=== PATIENT | female | born 1940 | race Caucasian/White ===

== ENCOUNTER → 2022-07-05 | Outpatient (REF) | payer OTHER, SELFPAY ==
[2022-07-05 08:34] LABS: Hematocrit 41.9 % (37-47); Hemoglobin 13.4 g/dL (12.0-15.0); Mean Corpuscular Hgb 31.3 pg (27.0-32.0); Mean Corpuscular Volume 97.9 fL (81-99); Platelet Count 191 K/mm3 (150-450); RBC Distribution Width CV 12.6 % (11.6-14.6); RBC Distribution Width SD 45.4 fl (35.1-43.9); Red Blood Count 4.28 M/mm3 (4.2-5.4); White Blood Count 29.4 K/mm3 (4.4-11.0)
[2022-07-05 09:23] LABS: AST(SGOT) 17 U/L (15-37); Alanine Aminotransfer ALT/SGPT 23 U/L (13-56); Albumin, Serum 3.5 g/dL (3.2-5.0); Alkaline Phosphatase 76 U/L (45-117); Anion Gap 7 (5-15); BUN 26 mg/dL (7-18); BUN/Creat Ratio 24.5 RATIO (10-20); Calcium,Total 8.9 mg/dL (8.5-10.1); Chloride 106 mmol/L (98-107); Creatinine, Serum 1.06 mg/dL (0.55-1.02); EST Glomerular Filtration Rate 53 mL/min (>60); Est Glom Filt Rate - Afr Amer 64 mL/min (>60); Globulin 3.4 g/dL (2.2-4.2); Glucose 110 mg/dL (74-106); Potassium 3.6 mmol/L (3.5-5.1); Protein, Total 6.9 g/dL (6.4-8.2); Sodium Level 141 mmol/L (136-145)
== END ==
LOC: OLS.BROOKB 05:00
PROVIDERS: Visit Provider Family Medicine
DX: I10 Essential (primary) hypertension (principal); L03.115 Cellulitis of right lower limb; C91.10 Chronic lymphocytic leukemia of B-cell type not having achieved remission; F02.80 Dementia in other diseases classified elsewhere, unspecified severity, without behavioral disturbance, psychotic disturbance, mood disturbance, and anxiety; Z99.2 Dependence on renal dialysis
CPT/HCPCS: 36415; 80053; 85027

== ENCOUNTER → 2022-09-06 | Outpatient (REF) | payer OTHER, SELFPAY ==
[2022-09-06 07:56] LABS: ALB/GLOB Ratio 0.9 RATIO (0.9-2.4); AST(SGOT) 19 U/L (15-37); Alanine Aminotransfer ALT/SGPT 20 U/L (13-56); Albumin, Serum 3.5 g/dL (3.2-5.0); Alkaline Phosphatase 75 U/L (45-117); Anion Gap 4 (5-15); BUN 26 mg/dL (7-18); BUN/Creat Ratio 31.8 RATIO (10-20); Calcium,Total 9.2 mg/dL (8.5-10.1); Chloride 104 mmol/L (98-107); Creatinine, Serum 0.82 mg/dL (0.55-1.02); EST Glomerular Filtration Rate 72 mL/min (>60); Est Glom Filt Rate - Afr Amer 87 mL/min (>60); Globulin 3.8 g/dL (2.2-4.2); Glucose 135 mg/dL (74-106); Potassium 4.1 mmol/L (3.5-5.1); Protein, Total 7.3 g/dL (6.4-8.2); Sodium Level 137 mmol/L (136-145)
== END ==
LOC: OLS.BROOKB 05:00
PROVIDERS: Visit Provider Family Medicine
DX: L03.115 Cellulitis of right lower limb (principal); R60.9 Edema, unspecified
CPT/HCPCS: 36415; 80053

== ENCOUNTER 2022-09-15 09:52 | Outpatient (RCR) | payer MEDICARE, SELFPAY ==
[2022-09-15 10:13] VITALS: BP 158/75; PULSE 75; RESP 16; TEMP 35.7; BMI 38.2
--- NOTE | 2022-09-15 14:53 | PCM.WC.HP ---
History of Present Illness Date of Service: 09/15/22 Chief Complaint: BLE wounds History of Wound: Patient is an 81-year-old female who resides at [facility]. She is referred by facility for evaluation and management of bilateral lower extremity wounds which have been ongoing for several weeks. Patient is unaccompanied to her appointment today. She does appear to have some level of dementia and is somewhat confused at times so is a rather poor historian. Referral paperwork indicates that patient had lower extremity cellulitis about a month ago which was treated with p.o. antibiotics. Current wound treatment consists of cleansing with wound cleanser covering with Telfa and wrapping with Kerlix daily. She reports a lot of pain associated with the wounds, but denies this pain being present prior to the wounds appearing. Patient states she is not diabetic and by review of her medication list this appears to be accurate. She states she does not smoke. She reports that she has never had wounds like this in the past. She is ambulatory and denies claudication type symptoms. She does have bilateral lower extremity edema with some fluid-filled blisters and serous fluid draining from wounds. She tells me that she does not wear compression. She typically sleeps in a chair. [facility] Home Medications acetaminophen 325 mg tablet 650 mg PO Q6H PRN Pain 09/15/22 [History Last Taken Unknown] bisacodyl 10 mg rectal suppository 10 mg OR DAILY PRN Constipation 09/15/22 [History Last Taken Unknown] furosemide 20 mg tablet 20 mg PO DAILY 09/15/22 [History Last Taken Unknown] hydroxyzine HCl 25 mg tablet 25 mg PO TID PRN ITCHING/ANXIETY 09/15/22 [History Last Taken Unknown] indapamide 2.5 mg tablet 2.5 mg PO DAILY 09/15/22 [History Last Taken Unknown] latanoprost 0.005 % eye drops 1 drp EACH EYE DAILY 09/15/22 [History Last Taken Unknown] nystatin 100,000 unit/gram topical powder 1 applic topical BID PRN Rash 09/15/22 [History Last Taken Unknown] ondansetron 4 mg disintegrating tablet 4 mg PO Q6H PRN Nausea 09/15/22 [History Last Taken Unknown] potassium chloride 20 mEq tablet,extended release 20 meq PO DAILY 09/15/22 [History Last Taken Unknown] sodium phosphates 19 gram-7 gram/118 mL enema (Fleet Enema) 118 ml OR DAILY PRN Constipation 09/15/22 [History Last Taken Unknown] venlafaxine 37.5 mg tablet 37.5 mg PO DAILY 09/15/22 [History Last Taken Unknown] Allergy/AdvReac Type Severity Reaction Status Date / Time timolol Allergy Other Verified 09/15/22 10:57 Social History Smoking Status: Never smoker ROS Constitutional Constitutional: Denies change in weight, chills, difficulty sleeping, fatigue, fever(s), frequent falls, lethargy, night sweats or weakness Eyes Eyes: Denies blindness, blurry vision, change in vision, eye pain or ptosis ENT HEENT: Denies abnormal hearing, change in voice, hearing loss, loss taste/smell or vertigo Cardiovascular Cardiovascular: Denies abdominal pain, chest pain, claudication, cold extremities, cyanosis, diaphoresis, dyspnea, dyspnea on exertion, fatigue, hypertension, irregular heart rhythm, orthopnea, palpitations, radiating jaw, neck or arm pain or syncope Respiratory/Chest Respiratory/Chest: Denies cough, dyspnea, hemoptysis, nail bed cyanosis, maryann-oral cyanosis, portable oxygen @ home, productive cough or wheezing Gastrointestinal Gastrointestinal: Denies abdominal pain, change in bowel habits, change in stool character, coffee ground emesis, melena, rectal bleeding or weight changes Genitourinary Genitourinary: Denies abdominal discomfort, burning urination, difficulty urinating or flank pain Musculoskeletal Musculoskeletal: Denies abnormal gait, difficulty walking, joint swelling, muscle cramps, muscle weakness or numbness Integumentary Integumentary: Reports wounds; Denies change in pigmentation, changing lesions, erythema, lesions, rash or unusual bruising Neurologic Neurologic: Denies abnormal gait, abnormal movements, abnormal speech, behavior changes, frequent falls, syncope, tingling or weakness Psychiatric Psychiatric: Denies behavioral changes, cognitive impairment or depression Endocrine Endocrinology: Denies change in body appearance, cold intolerance, excessive sweating, flushing, heat intolerance, palpitations, polydipsia, polyphagia or polyuria Hematologic/Lymphatic Hematologic/Lymphatic: Denies anemia, easy bleeding, easy bruising or lymphadenopathy Allergic/Immunologic Allergic/Immunologic: Denies seasonal rhinorrhea, throat swelling, tongue swelling, hives or asthma Vital Signs Vital Signs Vital Signs: 09/15/22 10:13 Temperature 96.2 F L Temperature Source Temporal Pulse Rate 75 Respiratory Rate 16 Blood Pressure 158/75 H Blood Pressure Mean 102 Blood Pressure Source Monitor Blood Pressure Position Sitting Blood Pressure Location Right Arm Oxygen Delivery Method Room Air Weight Weight: 196 lb Body Mass Index (BMI) 38.2 Physical Exam Const alert, oriented x3 and no apparent distress Orientation / Consciousness: confused HEENT normocephalic, head/scalp atraumatic, hearing grossly normal bilaterally, external ears normal and external nose normal Eyes EOMs intact bilaterally General Eye: normal appearance of both eyes Neck General: normal visual inspection and trachea midline Resp normal respiratory effort, normal air movement, no retractions and no use of accessory muscles Effort and Inspection: able to speak in complete sentences; Negative for stridor or audible wheezes Cardio Rate: regular rate Rhythm: regular rhythm Extremity Extremity Narrative: Bilateral lower extremity edema with some associated fluid-filled blisters. No particularly prominent varicose veins. Pulses diminished to palpation with monophasic signals. Appropriate color and normal capillary refill. Skin Wounds: wounds noted Wound Narrative: Wound noted to right anterior lundy which is quite superficial with pink granulation tissue at the wound bed. Right posterior calf cluster of superficial wounds with pink granulation tissue and minimal slough. Right posteromedial calf wound with significant adherent slough but areas of pink granulation tissue noted, no necrotic tissue or eschar. Left anterior lundy wound cluster very superficial. Left posterior calf wound, superficial with pink granulation tissue. No significant erythema, warmth. Serous drainage noted from wounds. Neuro oriented x3, CN's II-XII intact bilaterally, moves all extremities and no focal motor deficits Psych Appearance: grossly normal Attitude: calm Debridement Note Debridement Note Wound debrided: Left posterolateral lower leg Laterality: Left Type of Debridement: Excisional debridement Anesthesia Used: 5% Lidocaine Gel Depth: Down to and including healthy tissue Percentage of wound debrided: 100 Instrument Used: 5mm curette Tissue Removed: Devitalized tissue, slough Severity: Limited To Skin Breakdown Amount of bleeding with debridement: Mild Bleeding Controlled with: Pressure Patient tolerated procedure: Patient tolerated procedure well Post-Debridement Measurements and Additional Note: Post-Debridement Measurements/Treatment NIRU - Nurse 1 - General Ulcer Assessment Start: 09/15/22 10:12 Freq: Status: Active Protocol: STACIA Activity Type Activity Date Activity User E-sign Co-sign Detail Recorded Client Recorded Date Recorded By Document 09/15/22 10:13 [facility] [id number] 09/15/22 10:39 [facility] 09/15/22 10:13 WC - Today's Visit Information Type of service Initial Visit Arrival Mode Ambulatory, Walker Transfer Assistance None Patient Identification Verified (Name & Yes ) Patient Requires Transmission-Based No Precautions Height and Weight Height 5 ft Weight 196 lb Weight in Pounds 196.0 lbs Weight Measurement Method Estimated by Patient Body Mass Index (BMI) 38.2 BMI Classification Obese BSA - [place] 1.85 Vital Signs Temperature (97.8 F-99.1 F) 96.2 F L Temperature Source Temporal Pulse Rate (60-100) 75 Pulse Location Monitor Respiratory Rate (12-18) 16 Respiratory rate source Observation Oxygen Delivery Method Room Air Blood Pressure (90/60-120/80) 158/75 H Blood Pressure Mean 102 Source Monitor Position Sitting Blood Pressure Location Right Arm History Since Last Visit- (Skip if this is Patient's initial visit) Left Footwear Diabetic Shoe Right Footwear Diabetic Shoe Pain Scale: 0-10 Numeric Is Patient Pain Free? Yes Lower Extremity Assessment/ Foot Assessment/ Toe Nail Assessment Right -Posterior Tibial Palpable No -Posterior Tibial Doppler Monophasic -Dorsalis Pedis Palpable Yes -Dorsalis Pedis Doppler Monophasic -Extremity Color Pale, Hyperpigmented -Hair Growth on Legs No -Hair Growth on Toes No -Temperature of Extremity Cool -Capillary Refill Less than 3 Seconds -Other Deformity No -Prior Foot Ulcer No -Charcot Joint No -Prior Amputation No -Thick Yes -Discolored Yes -Deformed Yes -Improper Length & Hygeine Yes Left -Posterior Tibial Palpable No -Posterior Tibial Doppler Monophasic -Dorsalis Pedis Palpable Yes -Dorsalis Pedis Doppler Monophasic -Extremity Color Pale, Hyperpigmented -Hair Growth on Legs No -Hair Growth on Toes No -Temperature of Extremity Cool -Capillary Refill Less than 3 Seconds -Other Deformity No -Prior Foot Ulcer No -Charcot Joint No -Prior Amputation No -Thick Yes -Discolored Yes -Deformed No -Improper Length & Hygeine Yes Neuropathy Assessment Feet - Top Side and Bottom <Entered> (a) Communication Assessment Preferred language [place] Name/Type of Electronic Gaming Device Supervisor Electronic Gaming Device Supervisor Phone Able to Read Yes Able to Write Yes Communication Tools None Right Hearing Abillity Normal Left Hearing Abillity Normal Visual Assistive Devices Glasses Teaching Assessment Preferences Verbal,Written, Audio/Visual, Demonstration Barriers to Learning None Readiness To Learn Excellent Willingness to Engage in Self Management High Activies Readiness to Engage in Self Management High Activities Anxiety Level Calm Cooperation Cooperative Perception Coherent Interest in Health Problem Asks Questions Education Importance Acknowledges Need Does Patient Smoke tobacco or other No substances Smoking Status Never smoker Is Patient Diabetic No Functional Assessment Recent Decline in Ability to Perform Denies Any Declines 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 Cultural/Druze Needs that may affect No Treatment Plan Teaching: Wound Center *Welcome to the Wound Center -Person Taught Patient -Teaching Method Discussion -Response to teaching Verbalize understanding Welcome to the Wound Care Center [place] (a) 1 - + WC - Nurse 1 - General Ulcer Measurement Start: 09/15/22 10:12 Freq: Status: Active Protocol: Activity Type Activity Date Activity User E-sign Co-sign Detail Recorded Client Recorded Date Recorded By Document 09/15/22 10:13 [facility] [id number] 09/15/22 10:39 [facility] 09/15/22 10:13 Wound Center Nurse 1 #5- L LAT POST LE -Combined with other wound No -Current Size (cm) - Length 2.1 -Current Size (cm) - Width 2.3 -Current Size (cm) - Depth 0.1 -Total Square Cm 4.83 -Date of Last Picture (Recall this 09/15/22 field) -Photo Taken Yes -Epithelialization None Present -Tunneling No -Undermining/Tunneling No -Circular Undermining No -Exudate Amt Medium -Exudate Type Serous -Wound Margin Flat & Intact -Granulation Amt Medium (34-66%) -Granulation Quality Red -Slough/Fibrin Yes -Necrosis Amt Medium (34-66%) -Necrotic Tissue Type Adherent Slough -Texture (Maryann-wound Skin Appearance) Assessed, Scarring -Moisture (Maryann-wound Skin Appearance) Assessed -Color (Maryann-wound Skin Appearance) Assessed -Temperature (Maryann-wound Skin No Abnormality Appearance) (Pt Warm) -Tenderness on Palpation (Maryann-wound Yes Skin Appearance) -Ulcer Cleansing Soap and Water -Foul Odor after Cleansing No -Anesthetic Used 4% Lidocaine Solution #4- L LAT LUNDY CLUSTER -Combined with other wound No -Current Size (cm) - Length 4.9 -Current Size (cm) - Width 1.3 -Current Size (cm) - Depth 0.1 -Total Square Cm 6.37 -Date of Last Picture (Recall this 09/15/22 field) -Photo Taken Yes -Epithelialization None Present -Tunneling No -Undermining/Tunneling No -Circular Undermining No -Exudate Amt Medium -Exudate Type Serous -Wound Margin Distinct, Outline Attached -Granulation Amt Medium (34-66%) -Granulation Quality Red -Slough/Fibrin Yes -Necrosis Amt Medium (34-66%) -Necrotic Tissue Type Adherent Slough -Texture (Maryann-wound Skin Appearance) Assessed, Scarring -Moisture (Maryann-wound Skin Appearance) Assessed -Color (Maryann-wound Skin Appearance) Assessed -Temperature (Maryann-wound Skin No Abnormality Appearance) (Pt Warm) -Tenderness on Palpation (Maryann-wound No Skin Appearance) -Ulcer Cleansing Soap and Water -Foul Odor after Cleansing No -Anesthetic Used 4% Lidocaine Solution #3- R CALF CLUSTER -Combined with other wound No -Current Size (cm) - Length 2 -Current Size (cm) - Width 1 -Current Size (cm) - Depth 0.2 -Total Square Cm 2 -Date of Last Picture (Recall this 09/15/22 field) -Photo Taken Yes -Epithelialization None Present -Tunneling No -Undermining/Tunneling No -Circular Undermining No -Exudate Amt Medium -Exudate Type Serous -Wound Margin Flat & Intact -Granulation Amt Medium (34-66%) -Granulation Quality Red -Slough/Fibrin Yes -Necrosis Amt Medium (34-66%) -Necrotic Tissue Type Adherent Slough -Texture (Maryann-wound Skin Appearance) Assessed, Scarring -Moisture (Maryann-wound Skin Appearance) Assessed -Color (Maryann-wound Skin Appearance) Assessed -Temperature (Maryann-wound Skin No Abnormality Appearance) (Pt Warm) -Tenderness on Palpation (Maryann-wound Yes Skin Appearance) -Ulcer Cleansing Soap and Water -Foul Odor after Cleansing No -Anesthetic Used 4% Lidocaine Solution #2- R MED CALF -Combined with other wound No -Current Size (cm) - Length 2.3 -Current Size (cm) - Width 1.4 -Current Size (cm) - Depth 0.3 -Total Square Cm 3.22 -Date of Last Picture (Recall this 09/15/22 field) -Photo Taken Yes -Epithelialization None Present -Tunneling No -Undermining/Tunneling No -Circular Undermining No -Exudate Amt Medium -Exudate Type Serous -Wound Margin Distinct, Outline Attached -Granulation Amt None Present (0 %) -Slough/Fibrin Yes -Necrosis Amt Large (67-100%) -Necrotic Tissue Type Adherent Slough -Texture (Maryann-wound Skin Appearance) Assessed, Scarring -Moisture (Maryann-wound Skin Appearance) Assessed -Color (Maryann-wound Skin Appearance) Assessed -Temperature (Maryann-wound Skin No Abnormality Appearance) (Pt Warm) -Tenderness on Palpation (Maryann-wound Yes Skin Appearance) -Ulcer Cleansing Soap and Water -Foul Odor after Cleansing No -Anesthetic Used 4% Lidocaine Solution #1- R LUNDY -Combined with other wound No -Current Size (cm) - Length 0.7 -Current Size (cm) - Width 0.8 -Current Size (cm) - Depth 0.1 -Total Square Cm 0.56 -Date of Last Picture (Recall this 09/15/22 field) -Photo Taken Yes -Epithelialization None Present -Tunneling No -Undermining/Tunneling No -Circular Undermining No -Exudate Amt Medium -Exudate Type Serous -Wound Margin Flat & Intact -Granulation Amt Medium (34-66%) -Granulation Quality [place] -Slough/Fibrin Yes -Necrosis Amt Medium (34-66%) -Necrotic Tissue Type Adherent Slough -Texture (Maryann-wound Skin Appearance) Assessed, Scarring -Moisture (Maryann-wound Skin Appearance) Assessed -Color (Maryann-wound Skin Appearance) Assessed -Temperature (Maryann-wound Skin No Abnormality Appearance) (Pt Warm) -Tenderness on Palpation (Maryann-wound No Skin Appearance) -Ulcer Cleansing Soap and Water -Foul Odor after Cleansing No -Anesthetic Used 4% Lidocaine Solution Lower Limb Edema Present Yes Right Calf (cm) 45.2 Right Ankle (cm) 23.6 Left Calf (cm) 43.6 Left Ankle (cm) 24.7 WC - Nurse 2 - General Ulcer CM Notes Start: 09/15/22 10:12 Freq: Status: Active Protocol: Activity Type Activity Date Activity User E-sign Co-sign Detail Recorded Client Recorded Date Recorded By Document 09/15/22 10:53 [id number] 09/15/22 11:20 KATELYNN 09/15/22 10:53 Wound Center Nurse 2 #5- L LAT POST LE -Time 11:15 -Correct Patient Yes -Correct Side, Site, Position Yes -Correct Procedure Yes -Procedure Performed Yes -Type of Procedure Debridement -Clinical Debridement Subcutaneous -Tissue Removed Subcutaneous -Post Debridement (cm) - Length 1.8 -Post Debridement (cm) - Width 2.3 -Post Debridement (cm) - Depth 0.1 -Total Square (Post) (cm) 4.14 -Area of Debridement (cm) - Length 1.8 -Area of Debridement (cm) - Width 2.3 -Total Square (Area) (cm) 4.14 -Tunneling No -Undermining/Tunneling No -Circular Undermining No -Wound/Ulcer Outcome Not Healed -Ulcer Cleansing Rinsed/ Irrigated with Saline -Foul Odor after Cleansing No -Bioengineered Tissue No -Bleeding Controlled with Pressure -Treatment Response Procedure Tolerated Well -Offloading No -Debridement - Subq, 1st 20sq cm No #4- L LAT LUNDY CLUSTER -Time 11:15 -Correct Patient Yes -Correct Side, Site, Position Yes -Correct Procedure Yes -Procedure Performed Yes -Type of Procedure Debridement -Clinical Debridement Subcutaneous -Tissue Removed Subcutaneous -Post Debridement (cm) - Length 5.0 -Post Debridement (cm) - Width 1.2 -Post Debridement (cm) - Depth 0.1 -Total Square (Post) (cm) 6.00 -Area of Debridement (cm) - Length 5.0 -Area of Debridement (cm) - Width 1.2 -Total Square (Area) (cm) 6.00 -Tunneling No -Undermining/Tunneling No -Circular Undermining No -Wound/Ulcer Outcome Not Healed -Ulcer Cleansing Rinsed/ Irrigated with Saline -Foul Odor after Cleansing No -Bioengineered Tissue No -Bleeding Controlled with Pressure -Treatment Response Procedure Tolerated Well -Offloading No -Debridement - Subq, 1st 20sq cm No #3- R CALF CLUSTER -Time 11:16 -Correct Patient Yes -Correct Side, Site, Position Yes -Correct Procedure Yes -Procedure Performed Yes -Type of Procedure Debridement -Clinical Debridement Subcutaneous -Tissue Removed Subcutaneous -Post Debridement (cm) - Length 0.7 -Post Debridement (cm) - Width 0.7 -Post Debridement (cm) - Depth 0.3 -Total Square (Post) (cm) 0.49 -Area of Debridement (cm) - Length 0.7 -Area of Debridement (cm) - Width 0.7 -Total Square (Area) (cm) 0.49 -Tunneling No -Undermining/Tunneling No -Circular Undermining No -Wound/Ulcer Outcome Not Healed -Ulcer Cleansing Rinsed/ Irrigated with Saline -Foul Odor after Cleansing No -Bioengineered Tissue No -Bleeding Controlled with Pressure -Treatment Response Procedure Tolerated Well -Offloading No -Debridement - Subq, 1st 20sq cm No #2- R MED CALF -Time 11:16 -Correct Patient Yes -Correct Side, Site, Position Yes -Correct Procedure Yes -Procedure Performed Yes -Type of Procedure Debridement -Clinical Debridement Subcutaneous -Tissue Removed Subcutaneous -Post Debridement (cm) - Length 2.2 -Post Debridement (cm) - Width 2.0 -Post Debridement (cm) - Depth 0.4 -Total Square (Post) (cm) 4.40 -Area of Debridement (cm) - Length 2.2 -Area of Debridement (cm) - Width 2.0 -Total Square (Area) (cm) 4.40 -Tunneling No -Undermining/Tunneling No -Circular Undermining No -Wound/Ulcer Outcome Not Healed -Ulcer Cleansing Rinsed/ Irrigated with Saline -Foul Odor after Cleansing No -Bioengineered Tissue No -Bleeding Controlled with Pressure -Treatment Response Procedure Tolerated Well -Offloading No -Debridement - Subq, 1st 20sq cm No #1- R LUNDY -Time 11:17 -Correct Patient Yes -Correct Side, Site, Position Yes -Correct Procedure Yes -Procedure Performed Yes -Type of Procedure Debridement -Clinical Debridement Subcutaneous -Tissue Removed Subcutaneous -Post Debridement (cm) - Length 0.8 -Post Debridement (cm) - Width 0.6 -Post Debridement (cm) - Depth 0.1 -Total Square (Post) (cm) 0.48 -Area of Debridement (cm) - Length 0.8 -Area of Debridement (cm) - Width 0.6 -Total Square (Area) (cm) 0.48 -Debridement - Subq, 1st 20sq cm Yes Pain Scale: 0-10 Numeric Is Patient Pain Free? Yes WC - Nurse 3 - General Ulcer D/C NN Start: 09/15/22 10:12 Freq: Status: Active Protocol: Activity Type Activity Date Activity User E-sign Co-sign Detail Recorded Client Recorded Date Recorded By Document 09/15/22 11:34 [facility] [id number] 09/15/22 11:37 [facility] 09/15/22 11:34 Wound Care Center Nurse 3 #5- L LAT POST LE -Ulcer Cleansing Rinsed/ Irrigated with Saline -Foul Odor after Cleansing No -Primary Dressing Applied Fibracol Plus 4x4 -Other Dressing ABD -Primary Dressing Covered/Secured with Dry Gauze & Roll Gauze, Secured with Tape -Fibracol Plus 4x4 1 #4- L LAT LUNDY CLUSTER -Ulcer Cleansing Rinsed/ Irrigated with Saline -Foul Odor after Cleansing No -Primary Dressing Applied Fibracol Plus 4x4 -Other Dressing ABD -Primary Dressing Covered/Secured with Dry Gauze & Roll Gauze, Secured with Tape -Fibracol Plus 4x4 0 #3- R CALF CLUSTER -Ulcer Cleansing Rinsed/ Irrigated with Saline -Foul Odor after Cleansing No -Primary Dressing Applied Fibracol Plus 4x4 -Other Dressing ABD -Primary Dressing Covered/Secured with Dry Gauze & Roll Gauze, Secured with Tape -Fibracol Plus 4x4 0 #2- R MED CALF -Ulcer Cleansing Rinsed/ Irrigated with Saline -Foul Odor after Cleansing No -Other Dressing HYDROGEL -Primary Dressing Covered/Secured with Dry Gauze & Roll Gauze, Secured with Tape -Other Covering ABD #1- R LUNDY -Ulcer Cleansing Rinsed/ Irrigated with Saline -Foul Odor after Cleansing No -Primary Dressing Applied Fibracol Plus 4x4 -Other Dressing ABD -Primary Dressing Covered/Secured with Dry Gauze & Roll Gauze, Secured with Tape -Fibracol Plus 4x4 0 BLE -Tubular Bandage Single Layer -Size of Tubigrip Used Size F -Size F ($) 4 -Other SENT EXTRA Treatment Response Procedure Tolerated Well Pain Scale: 0-10 Numeric Is Patient Pain Free? Yes WC - Visit Discharge Discharge Condition Stable Ambulatory Status Ambulatory, Walker Transportation [facility] TRANSPORT Other ASSISTED LIVING Additional Wound Wound debrided: L lateral lundy Laterality: Left Type of Debridement: Excisional debridement Anesthesia Used: 5% Lidocaine Gel Depth: Down to and including healthy tissue Percentage of wound debrided: 100 Instrument Used: 5mm curette Tissue Removed: Slough, devitalized tissue Severity: Limited To Skin Breakdown Amount of bleeding with debridement: Mild Bleeding Controlled with: Pressure Patient tolerated procedure: Patient tolerated procedure well Additional Wound Wound debrided: R posterior calf cluster Laterality: Right Type of Debridement: Excisional debridement Anesthesia Used: 5% Lidocaine Gel Depth: Down to and including healthy tissue and in the subcutaneous layer Percentage of wound debrided: 100 Instrument Used: 5mm curette Tissue Removed: slough, devitalized tissue Severity: Limited To Skin Breakdown Amount of bleeding with debridement: Mild Bleeding Controlled with: Pressure Patient tolerated procedure: Patient tolerated procedure well Additional Wound Wound debrided: R medial calf Laterality: Right Type of Debridement: Excisional debridement Anesthesia Used: 5% Lidocaine Gel Depth: Down to and including healthy tissue Percentage of wound debrided: 100 Instrument Used: 5mm curette Tissue Removed: slough, devitalized Severity: Limited To Skin Breakdown Amount of bleeding with debridement: Mild Bleeding Controlled with: Pressure Patient tolerated procedure: Patient tolerated procedure well Additional Wound Wound debrided: R lundy Laterality: Right Type of Debridement: Excisional debridement Anesthesia Used: 5% Lidocaine Gel Depth: Down to and including healthy tissue Percentage of wound debrided: 100 Instrument Used: 5mm curette Tissue Removed: slough, devitalized tissue Severity: Limited To Skin Breakdown Amount of bleeding with debridement: Mild Bleeding Controlled with: Pressure Patient tolerated procedure: Patient tolerated procedure well Charges/Coding Visit Charges Office Visits / Consults: [id number] OV L3 New Procedures Integumentary [id number]: [id number] Otilai subq tissue 20 sq cm/< Assessment/Plan Assessment/Plan (1) Non-pressure chronic ulcer of right calf with fat layer exposed: CODE(S): L97.212 - Non-pressure chronic ulcer of right calf with fat layer exposed (2) Non-pressure chronic ulcer of right calf limited to breakdown of skin: CODE(S): L97.211 - 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 Will apply santyl to this wound for chemical debridement, dry gauze dressing. All other wounds were more superficial, minimal slough. Will apply fibracol, dry gauze dressing. Patient does have significant bilateral lower extremity edema which is likely the inciting factor of her wounds. Will apply tubigrips for compression. Patient does have diminised BLE pulses to palpation, strong monophasic doppler signals. No eschar/necrotic tissue, no pallor/cyanotic discoloration. Will consider arterial studies in the future depending upon course of healing. Patient does not have any prominent varicosities. Given her swelling, likely some underlying venous insufficiency. Will consider obtaining venous duplex in the future to assess for incompetency. For now, will monitor progress with compression. No signs/symptoms of active infection today. Discussed with patient the importance of compression and elevation in managing her BLE edema and in wound healing. I advise that she sleep in a bed if able, otherwise ensure legs/feet are elevated when sleeping in a chair preferably at least to the level of her heart. I encouraged her to increase protein and reduce sugar/carbs in her diet to support healing. Patient will return to clinic in 1 week for a nurse visit and in 2 weeks to see me.
== END 2022-09-17 23:59 | disposition home or self-care (01) ==
LOC: WC 09:52
PROVIDERS: PCP Family Medicine; Referring Provider Family Medicine; Visit Provider Physician Assistant
DX: L97.212 Non-pressure chronic ulcer of right calf with fat layer exposed (principal); L97.221 Non-pressure chronic ulcer of left calf limited to breakdown of skin; R60.0 Localized edema; Z79.899 Other long term (current) drug therapy
CPT/HCPCS: 11042; 99214; G0463

== ENCOUNTER → 2022-10-03 | Outpatient (REF) | payer MEDICARE, SELFPAY ==
[2022-10-03 07:03] LABS: Hemoglobin 13.4 g/dL (12.0-15.0); Mean Corp Hgb Conc 32.7 g/dL (32-36); Mean Corpuscular Hgb 31.7 pg (27.0-32.0); Mean Corpuscular Volume 96.9 fL (81-99); Mean Platelet Vol. 11.4 fl (6.2-12.0); Platelet Count 229 K/mm3 (150-450); RBC Distribution Width CV 12.7 % (11.6-14.6); RBC Distribution Width SD 45.4 fl (35.1-43.9); Red Blood Count 4.23 M/mm3 (4.2-5.4); White Blood Count 24.8 K/mm3 (4.4-11.0)
[2022-10-03 07:41] LABS: ALB/GLOB Ratio 0.9 RATIO (0.9-2.4); AST(SGOT) 14 U/L (15-37); Alanine Aminotransfer ALT/SGPT 18 U/L (13-56); Albumin, Serum 3.3 g/dL (3.2-5.0); Alkaline Phosphatase 83 U/L (45-117); Anion Gap 8 (5-15); BUN 30 mg/dL (7-18); BUN/Creat Ratio 35.5 RATIO (10-20); Calcium,Total 9.1 mg/dL (8.5-10.1); Chloride 100 mmol/L (98-107); Creatinine, Serum 0.85 mg/dL (0.55-1.02); EST Glomerular Filtration Rate 69 mL/min (>60); Est Glom Filt Rate - Afr Amer 83 mL/min (>60); Globulin 3.8 g/dL (2.2-4.2); Glucose 214 mg/dL (74-106); Potassium 4.1 mmol/L (3.5-5.1); Protein, Total 7.1 g/dL (6.4-8.2); Sodium Level 138 mmol/L (136-145)
== END ==
LOC: OLS.BROOKB 05:00
PROVIDERS: PCP Family Medicine; Visit Provider Family Medicine
DX: I10 Essential (primary) hypertension (principal)
CPT/HCPCS: 36415; 80053; 85027

== ENCOUNTER 2022-10-18 10:00 | Outpatient (RCR) | payer MEDICARE, SELFPAY ==
[2022-09-18 00:52] VITALS: BP 158/75; PULSE 75; RESP 16; TEMP 35.7; BMI 38.2
[2022-09-21 13:51] VITALS: BP 166/51; PULSE 79; RESP 16; TEMP 36.3; BMI 38.2
[2022-09-29 10:28] VITALS: BP 145/69; PULSE 77; RESP 18; TEMP 36.1; BMI 38.2
--- NOTE | 2022-09-29 16:40 | PCM.WC.PN ---
History of Present Illness Date of Service: 09/29/22 Chief Complaint: BLE wounds History of Wound: Patient is an 81-year-old female who resides at [facility]. She is referred by facility for evaluation and management of bilateral lower extremity wounds which have been ongoing for several weeks. Patient is unaccompanied to her appointment today. She does appear to have some level of dementia and is somewhat confused at times so is a rather poor historian. Referral paperwork indicates that patient had lower extremity cellulitis about a month ago which was treated with p.o. antibiotics. Current wound treatment consists of cleansing with wound cleanser covering with Telfa and wrapping with Kerlix daily. She reports a lot of pain associated with the wounds, but denies this pain being present prior to the wounds appearing. Patient states she is not diabetic and by review of her medication list this appears to be accurate. She states she does not smoke. She reports that she has never had wounds like this in the past. She is ambulatory and denies claudication type symptoms. She does have bilateral lower extremity edema with some fluid-filled blisters and serous fluid draining from wounds. She tells me that she does not wear compression. She typically sleeps in a chair. Subjective Subjective Patient has not been wearing the compression/tubigrips as directed. She states she took them off after the first hour last week as they were uncomfortable. Facility also did not receive fibracol so have not been applying this. Santly has been applied as directed though. She is getting her dressing changed once daily, she reports it is soaked through by time it is changed. No N/V, F/C, new or worsening pain in lower extremities. Objective Data Objective Data Vital Signs: Vital Signs Temp Pulse Resp BP O2 Del Method 97 F L 77 18 145/69 H Room Air 09/29/22 10:28 09/29/22 10:28 09/29/22 10:28 09/29/22 10:28 09/29/22 10:28 Oxygen Delivery Method Room Air Weight: 196 lb Body Mass Index (BMI) 38.2 Charges/Coding Procedures Integumentary 111xxx-113xx: [id number] Otilia subq tissue 20 sq cm/< Physical Exam Const alert, oriented x3 and no apparent distress Orientation / Consciousness: confused HEENT normocephalic, head/scalp atraumatic, hearing grossly normal bilaterally, external ears normal and external nose normal Eyes EOMs intact bilaterally General Eye: normal appearance of both eyes Neck General: normal visual inspection and trachea midline Resp normal respiratory effort, normal air movement, no retractions and no use of accessory muscles Effort and Inspection: able to speak in complete sentences; Negative for stridor or audible wheezes Cardio Rate: regular rate Rhythm: regular rhythm Extremity Extremity Narrative: Bilateral lower extremity edema with some associated fluid-filled blisters. No particularly prominent varicose veins. Pulses diminished to palpation with monophasic signals. Appropriate color and normal capillary refill. Skin Wounds: wounds noted Wound Narrative: Wound noted to right anterior lundy has healed. Right posterior calf cluster of superficial wounds with pink granulation tissue and minimal slough. Right posteromedial calf wound still with significant adherent slough but areas of pink granulation tissue noted, no necrotic tissue or eschar. Left anterior lundy wound cluster very superficial. Left posterior calf wound, superficial with pink granulation tissue. No significant erythema, warmth. Significant serous drainage noted from wounds. Neuro oriented x3, CN's II-XII intact bilaterally, moves all extremities and no focal motor deficits Psych Appearance: grossly normal Attitude: calm Debridement Note Debridement Note Wound debrided: Left posterolateral lower leg Laterality: Left Type of Debridement: Excisional debridement Anesthesia Used: 5% Lidocaine Gel Depth: Down to and including healthy tissue Percentage of wound debrided: 100 Instrument Used: 5mm curette Tissue Removed: Devitalized tissue, slough Severity: Limited To Skin Breakdown Amount of bleeding with debridement: Mild Bleeding Controlled with: Pressure Patient tolerated procedure: Patient tolerated procedure well Post-Debridement Measurements and Additional Note: Post-Debridement Measurements/Treatment - Nurse 1 - General Ulcer Assessment Start: 09/21/22 13:51 Freq: Status: Active Protocol: [email or web address].PRACHI Activity Type Activity Date Activity User E-sign Co-sign Detail Recorded Client Recorded Date Recorded By Document 09/21/22 13:51 [facility] [id number] 09/21/22 13:55 [facility] Document 09/29/22 10:28 [facility] [id number] 09/29/22 10:36 [facility] 09/21/22 09/29/22 13:51 10:28 - Today's Visit Information Type of service Nurse-only Follow-up Visit Visit (Physician/MACHINE PRECISION ENGRAVER ) Arrival Mode Ambulatory, Ambulatory, Walker Walker Transfer Assistance None None Patient Identification Verified (Name & Yes Yes ) Patient Requires Transmission-Based No No Precautions Height and Weight Body Mass Index (BMI) 38.2 38.2 BMI Classification Obese Obese Vital Signs Temperature (97.8 F-99.1 F) 97.4 F L 97 F L Temperature Source Temporal Temporal Pulse Rate (60-100) 79 77 Pulse Location Monitor Monitor Respiratory Rate (12-18) 16 18 Respiratory rate source Observation Observation Oxygen Delivery Method Room Air Room Air Blood Pressure (90/60-120/80) 166/51 H 145/69 H Blood Pressure Mean (mm Hg) 89 94 Source Monitor Monitor Position Sitting Sitting Blood Pressure Location Left Arm Left Arm History Since Last Visit- (Skip if this is Patient's initial visit) Has dressing in place as prescribed No Has compression in place as prescribed No Has offloadiing in place as prescribed N/A Experienced any changes in pain level or No management Left Footwear Diabetic Shoe Diabetic Shoe Right Footwear Diabetic Shoe Diabetic Shoe Other Footwear PT W/ DEMENTIA. ANSWERS ?'S, BUT NOT ALWAYS ACCURATE Pain Scale: 0-10 Numeric Is Patient Pain Free? Yes Yes WC - Nurse 1 - General Ulcer Measurement Start: 09/21/22 13:51 Freq: Status: Active Protocol: Activity Type Activity Date Activity User E-sign Co-sign Detail Recorded Client Recorded Date Recorded By Document 09/29/22 10:28 [facility] [id number] 09/29/22 10:36 [facility] 09/29/22 10:28 Wound Center Nurse 1 #1- R LUNDY -Combined with other wound No -Current Size (cm) - Length 0.1 -Current Size (cm) - Width 0.1 -Current Size (cm) - Depth 0.1 -Total Square Cm 0.01 -Date of Last Picture (Recall this 09/29/22 field) -Photo Taken Yes -Epithelialization None Present -Tunneling No -Undermining/Tunneling No -Circular Undermining No -Exudate Amt Large -Exudate Type Serous -Wound Margin Distinct, Outline Attached -Granulation Amt Large (67-100%) -Granulation Quality Red -Slough/Fibrin Yes -Necrosis Amt Small (1-33%) -Necrotic Tissue Type Adherent Slough -Texture (Maryann-wound Skin Appearance) Assessed, Scarring -Moisture (Maryann-wound Skin Appearance) Assessed, Maceration, Weeping -Color (Maryann-wound Skin Appearance) Assessed, Erythema -Temperature (Maryann-wound Skin No Abnormality Appearance) (Pt Warm) -Tenderness on Palpation (Maryann-wound Yes Skin Appearance) -Ulcer Cleansing Soap and Water -Foul Odor after Cleansing No -Anesthetic Used 4% Lidocaine Solution #5- L LAT POST LE -Combined with other wound No -Current Size (cm) - Length 3.5 -Current Size (cm) - Width 6 -Current Size (cm) - Depth 0.1 -Total Square Cm 21.0 -Date of Last Picture (Recall this 09/29/22 field) -Photo Taken Yes -Epithelialization None Present -Tunneling No -Undermining/Tunneling No -Circular Undermining No -Exudate Amt Large -Exudate Type Serous -Wound Margin Distinct, Outline Attached -Granulation Amt Large (67-100%) -Granulation Quality Red -Slough/Fibrin Yes -Necrosis Amt Small (1-33%) -Necrotic Tissue Type Adherent Slough -Texture (Maryann-wound Skin Appearance) Assessed, Scarring -Moisture (Maryann-wound Skin Appearance) Assessed, Maceration, Weeping -Color (Maryann-wound Skin Appearance) Assessed, Erythema -Temperature (Maryann-wound Skin No Abnormality Appearance) (Pt Warm) -Tenderness on Palpation (Maryann-wound Yes Skin Appearance) -Ulcer Cleansing Soap and Water -Foul Odor after Cleansing No -Anesthetic Used 4% Lidocaine Solution #4- L LAT LUNDY CLUSTER -Combined with other wound No -Current Size (cm) - Length 3.3 -Current Size (cm) - Width 0.7 -Current Size (cm) - Depth 0.1 -Total Square Cm 2.31 -Date of Last Picture (Recall this 09/29/22 field) -Photo Taken Yes -Epithelialization None Present -Tunneling No -Undermining/Tunneling No -Circular Undermining No -Exudate Amt Large -Exudate Type Serous -Wound Margin Distinct, Outline Attached -Granulation Amt Large (67-100%) -Granulation Quality Red -Slough/Fibrin Yes -Necrosis Amt Small (1-33%) -Necrotic Tissue Type Adherent Slough -Texture (Maryann-wound Skin Appearance) Assessed, Scarring -Moisture (Maryann-wound Skin Appearance) Assessed, Maceration, Weeping -Color (Maryann-wound Skin Appearance) Assessed, Erythema -Temperature (Maryann-wound Skin No Abnormality Appearance) (Pt Warm) -Tenderness on Palpation (Maryann-wound Yes Skin Appearance) -Ulcer Cleansing Soap and Water -Foul Odor after Cleansing No -Anesthetic Used 4% Lidocaine Solution #3- R CALF CLUSTER -Combined with other wound No -Current Size (cm) - Length 3.4 -Current Size (cm) - Width 3.2 -Current Size (cm) - Depth 0.1 -Total Square Cm 10.88 -Date of Last Picture (Recall this 09/29/22 field) -Photo Taken Yes -Epithelialization None Present -Tunneling No -Undermining/Tunneling No -Circular Undermining No -Exudate Amt Large -Exudate Type Serous -Wound Margin Distinct, Outline Attached -Granulation Amt Large (67-100%) -Granulation Quality Red -Slough/Fibrin Yes -Necrosis Amt Small (1-33%) -Necrotic Tissue Type Adherent Slough -Texture (Maryann-wound Skin Appearance) Assessed, Scarring -Moisture (Maryann-wound Skin Appearance) Assessed, Maceration, Weeping -Color (Maryann-wound Skin Appearance) Assessed, Erythema -Temperature (Maryann-wound Skin No Abnormality Appearance) (Pt Warm) -Tenderness on Palpation (Maryann-wound Yes Skin Appearance) -Ulcer Cleansing Soap and Water -Foul Odor after Cleansing No -Anesthetic Used 4% Lidocaine Solution #2- R MED CALF -Combined with other wound No -Current Size (cm) - Length 2.4 -Current Size (cm) - Width 1.8 -Current Size (cm) - Depth 0.2 -Total Square Cm 4.32 -Date of Last Picture (Recall this 09/29/22 field) -Photo Taken Yes -Epithelialization None Present -Tunneling No -Undermining/Tunneling No -Circular Undermining No -Exudate Amt Large -Exudate Type Serous -Wound Margin Distinct, Outline Attached -Granulation Amt Large (67-100%) -Granulation Quality Red -Slough/Fibrin Yes -Necrosis Amt Small (1-33%) -Necrotic Tissue Type Adherent Slough -Texture (Maryann-wound Skin Appearance) Assessed, Scarring -Moisture (Maryann-wound Skin Appearance) Assessed, Maceration, Weeping -Color (Maryann-wound Skin Appearance) Assessed, Erythema -Temperature (Maryann-wound Skin No Abnormality Appearance) (Pt Warm) -Tenderness on Palpation (Maryann-wound Yes Skin Appearance) -Ulcer Cleansing Soap and Water -Foul Odor after Cleansing No -Anesthetic Used 4% Lidocaine Solution Lower Limb Edema Present Yes Right Calf (cm) 43.5 Right Ankle (cm) 24 Left Calf (cm) 42.1 Left Ankle (cm) 24.6 WC - Nurse 2 - General Ulcer CM Notes Start: 09/21/22 13:51 Freq: Status: Active Protocol: Activity Type Activity Date Activity User E-sign Co-sign Detail Recorded Client Recorded Date Recorded By Document 09/29/22 12:06 PL [id number] 09/29/22 12:09 PL 09/29/22 12:06 Wound Center Nurse 2 #1- R LUNDY -Procedure Performed No -Wound/Ulcer Outcome Healed- Epithelialized #5- L LAT POST LE -Time 10:43 -Correct Patient Yes -Correct Side, Site, Position Yes -Correct Procedure Yes -Procedure Performed Yes -Type of Procedure Debridement -Clinical Debridement Subcutaneous -Tissue Removed Subcutaneous -Post Debridement (cm) - Length 5.0 -Post Debridement (cm) - Width 3.3 -Post Debridement (cm) - Depth 0.1 -Total Square (Post) (cm) 16.50 -Area of Debridement (cm) - Length 5.0 -Area of Debridement (cm) - Width 3.3 -Total Square (Area) (cm) 16.50 -Tunneling No -Undermining/Tunneling No -Circular Undermining No -Wound/Ulcer Outcome Not Healed -Ulcer Cleansing Rinsed/ Irrigated with Saline -Foul Odor after Cleansing No -Bioengineered Tissue No -Bleeding Controlled with Pressure -Treatment Response Procedure Tolerated Well -Debridement - Subq, 1st 20sq cm No #4- L LAT LUNDY CLUSTER -Time 10:43 -Correct Patient Yes -Correct Side, Site, Position Yes -Correct Procedure Yes -Procedure Performed Yes -Type of Procedure Debridement -Clinical Debridement Subcutaneous -Tissue Removed Subcutaneous -Post Debridement (cm) - Length 4.1 -Post Debridement (cm) - Width 2.5 -Post Debridement (cm) - Depth 0.1 -Total Square (Post) (cm) 10.25 -Area of Debridement (cm) - Length 4.1 -Area of Debridement (cm) - Width 2.5 -Total Square (Area) (cm) 10.25 -Tunneling No -Undermining/Tunneling No -Circular Undermining No -Wound/Ulcer Outcome Not Healed -Ulcer Cleansing Rinsed/ Irrigated with Saline -Foul Odor after Cleansing No -Bioengineered Tissue No -Bleeding Controlled with Pressure -Treatment Response Procedure Tolerated Well -Debridement - Subq, 1st 20sq cm No #3- R CALF CLUSTER -Time 10:43 -Correct Patient Yes -Correct Side, Site, Position Yes -Correct Procedure Yes -Procedure Performed Yes -Type of Procedure Debridement -Clinical Debridement Subcutaneous -Tissue Removed Subcutaneous -Post Debridement (cm) - Length 4.5 -Post Debridement (cm) - Width 3.6 -Post Debridement (cm) - Depth 0.1 -Total Square (Post) (cm) 16.20 -Area of Debridement (cm) - Length 4.5 -Area of Debridement (cm) - Width 3.6 -Total Square (Area) (cm) 16.20 -Tunneling No -Undermining/Tunneling No -Circular Undermining No -Wound/Ulcer Outcome Not Healed -Ulcer Cleansing Rinsed/ Irrigated with Saline -Foul Odor after Cleansing No -Bioengineered Tissue No -Bleeding Controlled with Pressure -Treatment Response Procedure Tolerated Well -Debridement - Subq, 1st 20sq cm No #2- R MED CALF -Time 10:43 -Correct Patient Yes -Correct Side, Site, Position Yes -Correct Procedure Yes -Procedure Performed Yes -Type of Procedure Debridement -Clinical Debridement Subcutaneous -Tissue Removed Subcutaneous -Post Debridement (cm) - Length 3.0 -Post Debridement (cm) - Width 2.1 -Post Debridement (cm) - Depth 0.1 -Total Square (Post) (cm) 6.30 -Area of Debridement (cm) - Length 3.0 -Area of Debridement (cm) - Width 2.1 -Total Square (Area) (cm) 6.30 -Tunneling No -Undermining/Tunneling No -Circular Undermining No -Wound/Ulcer Outcome Not Healed -Ulcer Cleansing Rinsed/ Irrigated with Saline -Foul Odor after Cleansing No -Bioengineered Tissue No -Bleeding Controlled with Pressure -Treatment Response Procedure Tolerated Well -Debridement - Subq, 1st 20sq cm Yes Pain Scale: 0-10 Numeric Is Patient Pain Free? Yes WC - Nurse 3 - General Ulcer D/C NN Start: 09/21/22 13:51 Freq: Status: Active Protocol: Activity Type Activity Date Activity User E-sign Co-sign Detail Recorded Client Recorded Date Recorded By Document 09/21/22 13:51 [facility] [id number] 09/21/22 13:55 [facility] Document 09/29/22 11:02 [facility] [id number] 09/29/22 11:04 BM 09/21/22 09/29/22 13:51 11:02 Vital Signs Temperature (97.8 F-99.1 F) 97.4 F L Temperature Source Temporal Pulse Rate (60-100) 79 Pulse Location Monitor Respiratory Rate (12-18) 16 Respiratory rate source Observation Oxygen Delivery Method Room Air Blood Pressure (90/60-120/80) 166/51 H Blood Pressure Mean (mm Hg) 89 Source Monitor Position Sitting Blood Pressure Location Left Arm Pain Scale: 0-10 Numeric Is Patient Pain Free? Yes Yes Wound Care Center Nurse 3 #1- R LUNDY -Ulcer Cleansing Rinsed/ Rinsed/ Irrigated with Irrigated with Saline Saline -Foul Odor after Cleansing No No -Primary Dressing Applied Fibracol Plus Fibracol Plus 4x4 4x4,Optilok 8x12 -Other Dressing ABD -Primary Dressing Covered/Secured with Dry Gauze & Dry Gauze & Roll Gauze, Roll Gauze, Secured with Secured with Tape Tape -Other Covering per rn -Fibracol Plus 4x4 0 0 -Optilok 8x12 0 #5- L LAT POST LE -Ulcer Cleansing Soap and Water Rinsed/ Irrigated with Saline -Foul Odor after Cleansing No No -Primary Dressing Applied Fibracol Plus Fibracol Plus 4x4 4x4,Optilok 8x12 -Other Dressing ABD per rn -Primary Dressing Covered/Secured with Dry Gauze & Dry Gauze & Roll Gauze, Roll Gauze, Secured with Secured with Tape Tape -Fibracol Plus 4x4 1 1 -Optilok 8x12 2 #4- L LAT LUNDY CLUSTER -Ulcer Cleansing Rinsed/ Rinsed/ Irrigated with Irrigated with Saline Saline -Foul Odor after Cleansing No No -Primary Dressing Applied Fibracol Plus Fibracol Plus 4x4 4x4,Optilok 8x12 -Other Dressing ABD per rn -Primary Dressing Covered/Secured with Dry Gauze & Dry Gauze & Roll Gauze, Roll Gauze, Secured with Secured with Tape Tape -Fibracol Plus 4x4 0 0 -Optilok 8x12 0 #3- R CALF CLUSTER -Ulcer Cleansing Rinsed/ Rinsed/ Irrigated with Irrigated with Saline Saline -Foul Odor after Cleansing No No -Primary Dressing Applied Fibracol Plus Fibracol Plus 4x4 4x4,Optilok 8x12 -Other Dressing ABD per jf rn -Primary Dressing Covered/Secured with Dry Gauze & Dry Gauze & Roll Gauze, Roll Gauze, Secured with Secured with Tape Tape -Fibracol Plus 4x4 0 0 -Optilok 8x12 0 #2- R MED CALF -Ulcer Cleansing Rinsed/ Rinsed/ Irrigated with Irrigated with Saline Saline -Foul Odor after Cleansing No No -Primary Dressing Applied Fibracol Plus 4x4,Optilok 8x12 -Other Dressing HYDROGEL per jf rn -Primary Dressing Covered/Secured with Dry Gauze & Dry Gauze & Roll Gauze, Roll Gauze, Secured with Secured with Tape Tape -Other Covering ABD -Fibracol Plus 4x4 0 -Optilok 8x12 0 BLE -Tubular Bandage Single Layer Single Layer -Size of Tubigrip Used Size E Size E -Size E ($) 4 2 -Other SENT EXTRA Treatment Response Procedure Procedure Tolerated Well Tolerated Well WC - Visit Discharge Discharge Condition Stable Stable Ambulatory Status Ambulatory, Ambulatory, Walker Walker Transportation AL TRANSPORT al transport Other ASSISTED LIVING assisted living Additional Wound Wound debrided: L lateral lundy Laterality: Left Type of Debridement: Excisional debridement Anesthesia Used: 5% Lidocaine Gel Depth: Down to and including healthy tissue Percentage of wound debrided: 100 Instrument Used: 5mm curette Tissue Removed: Slough, devitalized tissue Severity: Limited To Skin Breakdown Amount of bleeding with debridement: Mild Bleeding Controlled with: Pressure Patient tolerated procedure: Patient tolerated procedure well Additional Wound Wound debrided: R posterior calf cluster Laterality: Right Type of Debridement: Excisional debridement Anesthesia Used: 5% Lidocaine Gel Depth: Down to and including healthy tissue and in the subcutaneous layer Percentage of wound debrided: 100 Instrument Used: 5mm curette Tissue Removed: slough, devitalized tissue Severity: Limited To Skin Breakdown Amount of bleeding with debridement: Mild Bleeding Controlled with: Pressure Patient tolerated procedure: Patient tolerated procedure well Additional Wound Wound debrided: R medial calf Laterality: Right Type of Debridement: Excisional debridement Anesthesia Used: 5% Lidocaine Gel Depth: Down to and including healthy tissue Percentage of wound debrided: 100 Instrument Used: 5mm curette Tissue Removed: slough, devitalized Severity: Limited To Skin Breakdown Amount of bleeding with debridement: Mild Bleeding Controlled with: Pressure Patient tolerated procedure: Patient tolerated procedure well Assessment/Plan Assessment/Plan (1) Non-pressure chronic ulcer of right calf with fat layer exposed: CODE(S): L97.212 - Non-pressure chronic ulcer of right calf with fat layer exposed (2) Non-pressure chronic ulcer of right calf limited to breakdown of skin: CODE(S): L97.211 - Non-pressure chronic ulcer of right calf limited to breakdown of skin (3) Non-pressure chronic ulcer of left calf limited to breakdown of skin: CODE(S): L97.221 - Non-pressure chronic ulcer of left calf limited to breakdown of skin PLAN: Plan Still with significant bilateral lower extremity edema. Right anterior lundy wound healed. Right posteromedial calf wound extends into the subcutaneous layer and has significant adherent slough which I again was not able to fully debride due to patient's sensitivity. Continue with santyl to this wound for chemical debridement, super absorber over top to try to better manage drainage. All other wounds remain more superficial, minimal slough. Apply fibracol, change to secondary dressing of super absorber to try to better manage the moisture/drainage. Patient does have significant bilateral lower extremity edema which is likely the inciting factor of her wounds. I discussed with patient the importance of managing her swelling as this will be the gandara to healing her wounds. I advised that the compression is often uncomfortable for a few days until the swelling is better controlled then it should become more comfortable. I have ordered light compression (10-20mmHg), any boat tester would be of no benefit. I asked that she please try to wear the tubigrips this week. If still intolerable, will order LEAS to ensure underlying arterial insufficiency is not the cause of discomfort, though no signs to suggest that. No signs/symptoms of active infection today. We also discussed the importance of elevating her legs. I advise that she sleep in a bed if able, otherwise ensure legs/feet are elevated when sleeping in a chair preferably at least to the level of her heart. I encouraged her to increase protein and reduce sugar/carbs in her diet to support healing. Patient will return to clinic in 1 week.
[2022-10-06 10:33] VITALS: BP 145/103; PULSE 86; RESP 18; BMI 38.2
--- NOTE | 2022-10-06 20:30 | PN.PCM_ITS ---
History of Present Illness Date of Service: 10/06/22 Chief Complaint: BLE wounds History of Wound: Patient is an 81-year-old female who resides at [facility]. She is referred by facility for evaluation and management of bilateral lower extremity wounds which have been ongoing for several weeks. Patient is unaccompanied to her appointment today. She does appear to have some level of dementia and is somewhat confused at times so is a rather poor historian. Referral paperwork indicates that patient had lower extremity cellulitis about a month ago which was treated with p.o. antibiotics. Current wound treatment consists of cleansing with wound cleanser covering with Telfa and wrapping with Kerlix daily. She reports a lot of pain associated with the wounds, but denies this pain being present prior to the wounds appearing. Patient states she is not diabetic and by review of her medication list this appears to be accurate. She states she does not smoke. She reports that she has never had wounds like this in the past. She is ambulatory and denies claudication type symptoms. She does have bilateral lower extremity edema with some fluid-filled blisters and serous fluid draining from wounds. She tells me that she does not wear compression. She typically sleeps in a chair. Subjective Subjective We decreased tubigrip compression last week and patient reports she tolerated these much better this week. She wore them all week as directed. She also has been more conscientious about elevating her legs. The facility received fibracol so has been able to apply dressings as directed. She reports dressing is still often soaked when removed, but unfortunately only able to have dressing changes 1x/day. She still has a lot of tenderness to palpation. No N/V, F/C, new or worsening pain in lower extremities. Objective Data Objective Data Vital Signs: Vital Signs Temp Pulse Resp BP O2 Del Method 97 F L 86 18 145/103 H Room Air 09/29/22 10:28 10/06/22 10:33 10/06/22 10:33 10/06/22 10:33 10/06/22 10:33 Oxygen Delivery Method Room Air Weight: 196 lb Body Mass Index (BMI) 38.2 Lab / Micro Data Micro: Microbiology 10/06/22 11:00 Wound Abcess - Leg, Left Gram Stain - Final Charges/Coding Procedures Integumentary 111xxx-113xx: [id number] Otilia subq tissue 20 sq cm/< Physical Exam Const alert, oriented x3 and no apparent distress Orientation / Consciousness: confused HEENT normocephalic, head/scalp atraumatic, hearing grossly normal bilaterally, external ears normal and external nose normal Eyes EOMs intact bilaterally General Eye: normal appearance of both eyes Neck General: normal visual inspection and trachea midline Resp normal respiratory effort, normal air movement, no retractions and no use of accessory muscles Effort and Inspection: able to speak in complete sentences; Negative for stridor or audible wheezes Cardio Rate: regular rate Rhythm: regular rhythm Extremity Extremity Narrative: Bilateral lower extremity edema with some associated fluid-filled blisters, fewer than last week. No particularly prominent varicose veins. Pulses diminished to palpation with monophasic signals. Appropriate color and normal capillary refill. Skin Wounds: wounds noted Wound Narrative: Right posterior calf cluster of superficial wounds with pink granulation tissue and minimal slough. Right posteromedial calf wound still with significant adherent slough but areas of pink granulation tissue noted, no necrotic tissue or eschar. Left anterior lundy wound healed. Left posterior calf wound, superficial with pink granulation tissue. Some significant erythema, warmth. Significant serous drainage noted from wounds. Neuro oriented x3, CN's II-XII intact bilaterally, moves all extremities and no focal motor deficits Psych Appearance: grossly normal Attitude: calm Debridement Note Debridement Note Wound debrided: Left posterolateral lower leg Laterality: Left Type of Debridement: Excisional debridement Anesthesia Used: 5% Lidocaine Gel Depth: Down to and including healthy tissue Percentage of wound debrided: 100 Instrument Used: 5mm curette Tissue Removed: Devitalized tissue, slough Severity: Limited To Skin Breakdown Amount of bleeding with debridement: Mild Bleeding Controlled with: Pressure Patient tolerated procedure: Patient tolerated procedure well Post-Debridement Measurements and Additional Note: Post-Debridement Measurements/Treatment NIRU - Nurse 1 - General Ulcer Assessment Start: 09/21/22 13:51 Freq: Status: Active Protocol: STACIA Activity Type Activity Date Activity User E-sign Co-sign Detail Recorded Client Recorded Date Recorded By Document 09/21/22 13:51 [facility] [id number] 09/21/22 13:55 [facility] Document 09/29/22 10:28 [facility] [id number] 09/29/22 10:36 [facility] Document 10/06/22 10:33 [facility] [id number] 10/06/22 10:46 [facility] 09/21/22 09/29/22 10/06/22 13:51 10:28 10:33 - Today's Visit Information Type of service Nurse-only Follow-up Visit Follow-up Visit Visit (Physician/ENVIRONMENTAL SERVICES PROJECT MANAGER (Physician/ENVIRONMENTAL SERVICES PROJECT MANAGER ) ) Arrival Mode Ambulatory, Ambulatory, Ambulatory, Walker Walker Walker Transfer Assistance None None None Patient Identification Verified (Name & Yes Yes Yes ) Patient Requires Transmission-Based No No No Precautions Height and Weight Body Mass Index (BMI) 38.2 38.2 38.2 BMI Classification Obese Obese Obese Vital Signs Temperature (97.8 F-99.1 F) 97.4 F L 97 F L Temperature Source Temporal Temporal Pulse Rate (60-100) 79 77 86 Pulse Location Monitor Monitor Monitor Respiratory Rate (12-18) 16 18 18 Respiratory rate source Observation Observation Observation Oxygen Delivery Method Room Air Room Air Room Air Blood Pressure (90/60-120/80) 166/51 H 145/69 H 145/103 H Blood Pressure Mean (mm Hg) 89 94 117 Source Monitor Monitor Monitor Position Sitting Sitting Sitting Blood Pressure Location Left Arm Left Arm Left Arm History Since Last Visit- (Skip if this is Patient's initial visit) Have you been in the hospital since your No last visit? Has dressing in place as prescribed No Yes Has compression in place as prescribed No Yes Has offloadiing in place as prescribed N/A N/A Experienced any changes in pain level or No No management Left Footwear Diabetic Shoe Diabetic Shoe Regular Shoe Right Footwear Diabetic Shoe Diabetic Shoe Regular Shoe Other Footwear PT W/ DEMENTIA. ANSWERS ?'S, BUT NOT ALWAYS ACCURATE Pain Scale: 0-10 Numeric Is Patient Pain Free? Yes Yes Yes - Nurse 1 - General Ulcer Measurement Start: 09/21/22 13:51 Freq: Status: Active Protocol: Activity Type Activity Date Activity User E-sign Co-sign Detail Recorded Client Recorded Date Recorded By Document 09/29/22 10:28 [facility] [id number] 09/29/22 10:36 [facility] Document 10/06/22 10:33 [facility] [id number] 10/06/22 10:46 [facility] 09/29/22 10/06/22 10:28 10:33 Wound Center Nurse 1 #4- L LAT LUNDY CLUSTER -Combined with other wound No No -Current Size (cm) - Length 3.3 0.1 -Current Size (cm) - Width 0.7 0.1 -Current Size (cm) - Depth 0.1 0.1 -Total Square Cm 2.31 0.01 -Date of Last Picture (Recall this 09/29/22 10/06/22 field) -Photo Taken Yes Yes -Epithelialization None Present Large 67-100% -Tunneling No -Undermining/Tunneling No -Circular Undermining No -Exudate Amt Large -Exudate Type Serous -Wound Margin Distinct, Outline Attached -Granulation Amt Large (67-100%) -Granulation Quality Red -Slough/Fibrin Yes -Necrosis Amt Small (1-33%) -Necrotic Tissue Type Adherent Slough -Texture (Maryann-wound Skin Appearance) Assessed, Scarring -Moisture (Maryann-wound Skin Appearance) Assessed, Maceration, Weeping -Color (Maryann-wound Skin Appearance) Assessed, Erythema -Temperature (Maryann-wound Skin No Abnormality Appearance) (Pt Warm) -Tenderness on Palpation (Maryann-wound Yes Skin Appearance) -Ulcer Cleansing Soap and Water -Foul Odor after Cleansing No -Anesthetic Used 4% Lidocaine Solution #1- R LUNDY -Combined with other wound No -Current Size (cm) - Length 0.1 -Current Size (cm) - Width 0.1 -Current Size (cm) - Depth 0.1 -Total Square Cm 0.01 -Date of Last Picture (Recall this 09/29/22 field) -Photo Taken Yes -Epithelialization None Present -Tunneling No -Undermining/Tunneling No -Circular Undermining No -Exudate Amt Large -Exudate Type Serous -Wound Margin Distinct, Outline Attached -Granulation Amt Large (67-100%) -Granulation Quality Red -Slough/Fibrin Yes -Necrosis Amt Small (1-33%) -Necrotic Tissue Type Adherent Slough -Texture (Maryann-wound Skin Appearance) Assessed, Scarring -Moisture (Maryann-wound Skin Appearance) Assessed, Maceration, Weeping -Color (Maryann-wound Skin Appearance) Assessed, Erythema -Temperature (Maryann-wound Skin No Abnormality Appearance) (Pt Warm) -Tenderness on Palpation (Maryann-wound Yes Skin Appearance) -Ulcer Cleansing Soap and Water -Foul Odor after Cleansing No -Anesthetic Used 4% Lidocaine Solution #5- L LAT POST LE -Combined with other wound No No -Current Size (cm) - Length 3.5 5 -Current Size (cm) - Width 6 4 -Current Size (cm) - Depth 0.1 0.1 -Total Square Cm 21.0 20 -Date of Last Picture (Recall this 09/29/22 10/06/22 field) -Photo Taken Yes Yes -Epithelialization None Present None Present -Tunneling No No -Undermining/Tunneling No No -Circular Undermining No No -Exudate Amt Large Large -Exudate Type Serous Serous -Wound Margin Distinct, Distinct, Outline Outline Attached Attached -Granulation Amt Large (67-100%) Large (67-100%) -Granulation Quality Red Red -Slough/Fibrin Yes Yes -Necrosis Amt Small (1-33%) Small (1-33%) -Necrotic Tissue Type Adherent Slough Adherent Slough -Texture (Maryann-wound Skin Appearance) Assessed, Assessed, Scarring Scarring -Moisture (Maryann-wound Skin Appearance) Assessed, Assessed, Maceration, Maceration Weeping -Color (Maryann-wound Skin Appearance) Assessed, Assessed, Erythema Erythema -Temperature (Maryann-wound Skin No Abnormality No Abnormality Appearance) (Pt Warm) (Pt Warm) -Tenderness on Palpation (Maryann-wound Yes Yes Skin Appearance) -Ulcer Cleansing Soap and Water Soap and Water -Foul Odor after Cleansing No No -Anesthetic Used 4% Lidocaine 4% Lidocaine Solution Solution #3- R CALF CLUSTER -Combined with other wound No No -Current Size (cm) - Length 3.4 3.5 -Current Size (cm) - Width 3.2 2 -Current Size (cm) - Depth 0.1 0.1 -Total Square Cm 10.88 7.0 -Date of Last Picture (Recall this 09/29/22 10/06/22 field) -Photo Taken Yes Yes -Epithelialization None Present None Present -Tunneling No No -Undermining/Tunneling No No -Circular Undermining No No -Exudate Amt Large Medium -Exudate Type Serous Serosanguineous -Wound Margin Distinct, Distinct, Outline Outline Attached Attached -Granulation Amt Large (67-100%) Large (67-100%) -Granulation Quality Red Red -Slough/Fibrin Yes No -Necrosis Amt Small (1-33%) None Present (0 %) -Necrotic Tissue Type Adherent Slough -Texture (Maryann-wound Skin Appearance) Assessed, Assessed, Scarring Scarring -Moisture (Maryann-wound Skin Appearance) Assessed, Assessed, Maceration, Maceration Weeping -Color (Maryann-wound Skin Appearance) Assessed, Assessed, Erythema Erythema -Temperature (Maryann-wound Skin No Abnormality No Abnormality Appearance) (Pt Warm) (Pt Warm) -Tenderness on Palpation (Maryann-wound Yes Yes Skin Appearance) -Ulcer Cleansing Soap and Water Soap and Water -Foul Odor after Cleansing No No -Anesthetic Used 4% Lidocaine 4% Lidocaine Solution Solution #2- R MED CALF -Combined with other wound No No -Current Size (cm) - Length 2.4 4.3 -Current Size (cm) - Width 1.8 3.5 -Current Size (cm) - Depth 0.2 0.2 -Total Square Cm 4.32 15.05 -Date of Last Picture (Recall this 09/29/22 10/06/22 field) -Photo Taken Yes Yes -Epithelialization None Present None Present -Tunneling No No -Undermining/Tunneling No No -Circular Undermining No No -Exudate Amt Large Large -Exudate Type Serous Serous -Wound Margin Distinct, Distinct, Outline Outline Attached Attached -Granulation Amt Large (67-100%) Medium (34-66%) -Granulation Quality Red Red -Slough/Fibrin Yes Yes -Necrosis Amt Small (1-33%) Medium (34-66%) -Necrotic Tissue Type Adherent Slough Adherent Slough -Texture (Maryann-wound Skin Appearance) Assessed, Assessed, Scarring Scarring -Moisture (Maryann-wound Skin Appearance) Assessed, Assessed,Dry/ Maceration, Scaly Weeping -Color (Maryann-wound Skin Appearance) Assessed, Assessed Erythema -Temperature (Maryann-wound Skin No Abnormality No Abnormality Appearance) (Pt Warm) (Pt Warm) -Tenderness on Palpation (Maryann-wound Yes Yes Skin Appearance) -Ulcer Cleansing Soap and Water Soap and Water -Foul Odor after Cleansing No No -Anesthetic Used 4% Lidocaine 4% Lidocaine Solution Solution Lower Limb Edema Present Yes Yes Right Calf (cm) 43.5 44.9 Right Ankle (cm) 24 23.8 Left Calf (cm) 42.1 42.5 Left Ankle (cm) 24.6 25 WC - Nurse 2 - General Ulcer CM Notes Start: 09/21/22 13:51 Freq: Status: Active Protocol: Activity Type Activity Date Activity User E-sign Co-sign Detail Recorded Client Recorded Date Recorded By Document 09/29/22 12:06 PL [id number] 09/29/22 12:09 PL Edit Result 09/29/22 12:06 PL (1) [id number] 10/02/22 07:34 PL Document 10/06/22 11:56 PL [id number] 10/06/22 12:00 PL (1) #2- R MED CALF - Debridement, SubQ, ea addt'l 20sq cm => 2 or part thereof 09/29/22 10/06/22 12:06 11:56 Wound Center Nurse 2 #4- L LAT LUNDY CLUSTER -Time 10:43 -Correct Patient Yes -Correct Side, Site, Position Yes -Correct Procedure Yes -Procedure Performed Yes No -Type of Procedure Debridement -Clinical Debridement Subcutaneous -Tissue Removed Subcutaneous -Post Debridement (cm) - Length 4.1 -Post Debridement (cm) - Width 2.5 -Post Debridement (cm) - Depth 0.1 -Total Square (Post) (cm) 10.25 -Area of Debridement (cm) - Length 4.1 -Area of Debridement (cm) - Width 2.5 -Total Square (Area) (cm) 10.25 -Tunneling No -Undermining/Tunneling No -Circular Undermining No -Wound/Ulcer Outcome Not Healed Healed- Epithelialized -Ulcer Cleansing Rinsed/ Irrigated with Saline -Foul Odor after Cleansing No -Bioengineered Tissue No -Bleeding Controlled with Pressure -Treatment Response Procedure Tolerated Well -Debridement - Subq, 1st 20sq cm No #1- R LUNDY -Procedure Performed No -Wound/Ulcer Outcome Healed- Epithelialized #5- L LAT POST LE -Time 10:43 11:02 -Correct Patient Yes Yes -Correct Side, Site, Position Yes Yes -Correct Procedure Yes Yes -Procedure Performed Yes Yes -Type of Procedure Debridement Debridement -Clinical Debridement Subcutaneous Subcutaneous -Tissue Removed Subcutaneous Subcutaneous -Post Debridement (cm) - Length 5.0 5.6 -Post Debridement (cm) - Width 3.3 3.7 -Post Debridement (cm) - Depth 0.1 0.1 -Total Square (Post) (cm) 16.50 20.72 -Area of Debridement (cm) - Length 5.0 5.6 -Area of Debridement (cm) - Width 3.3 3.7 -Total Square (Area) (cm) 16.50 20.72 -Tunneling No No -Undermining/Tunneling No No -Circular Undermining No No -Wound/Ulcer Outcome Not Healed Not Healed -Ulcer Cleansing Rinsed/ Rinsed/ Irrigated with Irrigated with Saline Saline -Foul Odor after Cleansing No No -Bioengineered Tissue No No -Bleeding Controlled with Pressure Pressure -Treatment Response Procedure Procedure Tolerated Well Tolerated Well -Debridement - Subq, 1st 20sq cm No No #3- R CALF CLUSTER -Time 10:43 11:02 -Correct Patient Yes Yes -Correct Side, Site, Position Yes Yes -Correct Procedure Yes Yes -Procedure Performed Yes Yes -Type of Procedure Debridement Debridement -Clinical Debridement Subcutaneous Subcutaneous -Tissue Removed Subcutaneous Subcutaneous -Post Debridement (cm) - Length 4.5 4.5 -Post Debridement (cm) - Width 3.6 3.6 -Post Debridement (cm) - Depth 0.1 0.1 -Total Square (Post) (cm) 16.20 16.20 -Area of Debridement (cm) - Length 4.5 4.5 -Area of Debridement (cm) - Width 3.6 3.6 -Total Square (Area) (cm) 16.20 16.20 -Tunneling No No -Undermining/Tunneling No No -Circular Undermining No No -Wound/Ulcer Outcome Not Healed Not Healed -Ulcer Cleansing Rinsed/ Rinsed/ Irrigated with Irrigated with Saline Saline -Foul Odor after Cleansing No No -Bioengineered Tissue No No -Bleeding Controlled with Pressure Pressure -Treatment Response Procedure Procedure Tolerated Well Tolerated Well -Debridement - Subq, 1st 20sq cm No No #2- R MED CALF -Time 10:43 11:02 -Correct Patient Yes Yes -Correct Side, Site, Position Yes Yes -Correct Procedure Yes Yes -Procedure Performed Yes Yes -Type of Procedure Debridement Debridement -Clinical Debridement Subcutaneous Subcutaneous -Tissue Removed Subcutaneous Subcutaneous -Post Debridement (cm) - Length 3.0 2.9 -Post Debridement (cm) - Width 2.1 1.9 -Post Debridement (cm) - Depth 0.1 0.1 -Total Square (Post) (cm) 6.30 5.51 -Area of Debridement (cm) - Length 3.0 2.9 -Area of Debridement (cm) - Width 2.1 1.9 -Total Square (Area) (cm) 6.30 5.51 -Tunneling No No -Undermining/Tunneling No No -Circular Undermining No No -Wound/Ulcer Outcome Not Healed Not Healed -Ulcer Cleansing Rinsed/ Rinsed/ Irrigated with Irrigated with Saline Saline -Foul Odor after Cleansing No No -Bioengineered Tissue No No -Bleeding Controlled with Pressure Pressure -Treatment Response Procedure Procedure Tolerated Well Tolerated Well -Debridement - Subq, 1st 20sq cm Yes Yes -Debridement, SubQ, ea addt'l 20sq cm 2 2 or part thereof Pain Scale: 0-10 Numeric Is Patient Pain Free? Yes Yes - Nurse 3 - General Ulcer D/C NN Start: 09/21/22 13:51 Freq: Status: Active Protocol: Activity Type Activity Date Activity User E-sign Co-sign Detail Recorded Client Recorded Date Recorded By Document 09/21/22 13:51 [facility] [id number] 09/21/22 13:55 [facility] Document 09/29/22 11:02 [facility] [id number] 09/29/22 11:04 [facility] Document 10/06/22 12:10 PA [id number] 10/06/22 12:14 [place] 09/21/22 09/29/22 10/06/22 13:51 11:02 12:10 Vital Signs Temperature (97.8 F-99.1 F) 97.4 F L Temperature Source Temporal Pulse Rate (60-100) 79 Pulse Location Monitor Respiratory Rate (12-18) 16 Respiratory rate source Observation Oxygen Delivery Method Room Air Blood Pressure (90/60-120/80) 166/51 H Blood Pressure Mean (mm Hg) 89 Source Monitor Position Sitting Blood Pressure Location Left Arm Pain Scale: 0-10 Numeric Is Patient Pain Free? Yes Yes Yes Wound Care Center Nurse 3 #4- L LAT LUNDY CLUSTER -Ulcer Cleansing Rinsed/ Rinsed/ Irrigated with Irrigated with Saline Saline -Foul Odor after Cleansing No No -Primary Dressing Applied Fibracol Plus Fibracol Plus 4x4 4x4,Optilok 8x12 -Other Dressing ABD per jf rn -Primary Dressing Covered/Secured with Dry Gauze & Dry Gauze & Roll Gauze, Roll Gauze, Secured with Secured with Tape Tape -Fibracol Plus 4x4 0 0 -Optilok 8x12 0 #1- R LUNDY -Ulcer Cleansing Rinsed/ Rinsed/ Irrigated with Irrigated with Saline Saline -Foul Odor after Cleansing No No -Primary Dressing Applied Fibracol Plus Fibracol Plus 4x4 4x4,Optilok 8x12 -Other Dressing ABD -Primary Dressing Covered/Secured with Dry Gauze & Dry Gauze & Roll Gauze, Roll Gauze, Secured with Secured with Tape Tape -Other Covering per jf rn -Fibracol Plus 4x4 0 0 -Optilok 8x12 0 #5- L LAT POST LE -Ulcer Cleansing Soap and Water Rinsed/ Rinsed/ Irrigated with Irrigated with Saline Saline -Foul Odor after Cleansing No No No -Negative Pressure Wound Therapy N/A -Primary Dressing Applied Fibracol Plus Fibracol Plus Optilok 6.5x10 4x4 4x4,Optilok 8x12 -Other Dressing ABD per rn hydrogel -Primary Dressing Covered/Secured with Dry Gauze & Dry Gauze & Dry Gauze & Roll Gauze, Roll Gauze, Roll Gauze, Secured with Secured with Secured with Tape Tape Tape -Fibracol Plus 4x4 1 1 -Optilok 6.5x10 1 -Optilok 8x12 2 #3- R CALF CLUSTER -Ulcer Cleansing Rinsed/ Rinsed/ Rinsed/ Irrigated with Irrigated with Irrigated with Saline Saline Saline -Foul Odor after Cleansing No No No -Negative Pressure Wound Therapy N/A -Primary Dressing Applied Fibracol Plus Fibracol Plus Optilok 6.5x10 4x4 4x4,Optilok 8x12 -Other Dressing ABD per rn hydrogel -Primary Dressing Covered/Secured with Dry Gauze & Dry Gauze & Dry Gauze & Roll Gauze, Roll Gauze, Roll Gauze, Secured with Secured with Secured with Tape Tape Tape -Fibracol Plus 4x4 0 0 -Optilok 6.5x10 1 -Optilok 8x12 0 #2- R MED CALF -Ulcer Cleansing Rinsed/ Rinsed/ Rinsed/ Irrigated with Irrigated with Irrigated with Saline Saline Saline -Foul Odor after Cleansing No No No -Negative Pressure Wound Therapy N/A -Primary Dressing Applied Fibracol Plus 4x4,Optilok 8x12 -Other Dressing HYDROGEL per jf rn hydrogel -Primary Dressing Covered/Secured with Dry Gauze & Dry Gauze & Dry Gauze & Roll Gauze, Roll Gauze, Roll Gauze, Secured with Secured with Secured with Tape Tape Tape -Other Covering ABD -Fibracol Plus 4x4 0 -Optilok 8x12 0 BLE -Lotion applied to leg before No compression wrap -Tubular Bandage Single Layer Single Layer Single Layer -Size of Tubigrip Used Size E Size E Size E -Size E ($) 4 2 1 -Other SENT EXTRA Treatment Response Procedure Procedure Tolerated Well Tolerated Well WC - Visit Discharge Discharge Condition Stable Stable Stable Ambulatory Status Ambulatory, Ambulatory, Ambulatory, Walker Walker Walker Transportation AL TRANSPORT al transport Medication Reconcilliation completed & Yes provided to patient/care provider Clinical Summary of Care Provided Yes Other [facility] assisted living Additional Wound Wound debrided: R posterior calf cluster Laterality: Right Type of Debridement: Excisional debridement Anesthesia Used: 5% Lidocaine Gel Depth: Down to and including healthy tissue and in the subcutaneous layer Percentage of wound debrided: 100 Instrument Used: 5mm curette Tissue Removed: slough, devitalized tissue Severity: Limited To Skin Breakdown Amount of bleeding with debridement: Mild Bleeding Controlled with: Pressure Patient tolerated procedure: Patient tolerated procedure well Additional Wound Wound debrided: R medial calf Laterality: Right Type of Debridement: Excisional debridement Anesthesia Used: 5% Lidocaine Gel Depth: Down to and including healthy tissue Percentage of wound debrided: 100 Instrument Used: 5mm curette Tissue Removed: slough, devitalized Severity: Limited To Skin Breakdown Amount of bleeding with debridement: Mild Bleeding Controlled with: Pressure Patient tolerated procedure: Patient tolerated procedure well Assessment/Plan Assessment/Plan (1) Non-pressure chronic ulcer of right calf with fat layer exposed: CODE(S): L97.212 - Non-pressure chronic ulcer of right calf with fat layer exposed (2) Non-pressure chronic ulcer of right calf limited to breakdown of skin: CODE(S): L97.211 - Non-pressure chronic ulcer of right calf limited to breakdown of skin (3) Non-pressure chronic ulcer of left calf limited to breakdown of skin: CODE(S): L97.221 - Non-pressure chronic ulcer of left calf limited to breakdown of skin PLAN: Plan Still with significant bilateral lower extremity edema, but does appear somewhat improved from last week. Will continue with light tubigrips for now as this is all patient can tolerate. Continue to elevate legs whenever resting/sleeping. Continue with santyl to right posteromedial calf wound, super absorber over top. Apply fibracol to all other wounds, super absorber over top. Obtained wound cultures today. Will prescribed antibiotics as indicated. I encouraged her to increase protein and reduce sugar/carbs in her diet to support healing. Patient will return to clinic next Sunday afternoon.
[2022-10-11 14:13] VITALS: RESP 22; TEMP 36.2; BMI 38.2
--- NOTE | 2022-10-11 22:17 | PN.PCM_ITS ---
History of Present Illness Date of Service: 10/11/22 Chief Complaint: BLE wounds History of Wound: Patient is an 81-year-old female who resides at [facility]. She is referred by facility for evaluation and management of bilateral lower extremity wounds which have been ongoing for several weeks. Patient is unaccompanied to her appointment today. She does appear to have some level of dementia and is somewhat confused at times so is a rather poor historian. Referral paperwork indicates that patient had lower extremity cellulitis about a month ago which was treated with p.o. antibiotics. Current wound treatment consists of cleansing with wound cleanser covering with Telfa and wrapping with Kerlix daily. She reports a lot of pain associated with the wounds, but denies this pain being present prior to the wounds appearing. Patient states she is not diabetic and by review of her medication list this appears to be accurate. She states she does not smoke. She reports that she has never had wounds like this in the past. She is ambulatory and denies claudication type symptoms. She does have bilateral lower extremity edema with some fluid-filled blisters and serous fluid draining from wounds. She tells me that she does not wear compression. She typically sleeps in a chair. Subjective Subjective She has been compliant with wearing compression. She is elevating her legs throughout the day as best she can. She still sleeps in a chair, props her feet up on another chair/stool. She reports that her dressings are often sopping wet when they are changed. SNF was out of super-absorber dressings, more have been ordered. No N/V, F/C, new or worsening pain in lower extremities. Objective Data Objective Data Vital Signs: Vital Signs Temp Pulse Resp BP O2 Del Method 97.1 F L 86 22 H 145/103 H Room Air 10/11/22 14:13 10/06/22 10:33 10/11/22 14:13 10/06/22 10:33 10/06/22 10:33 Oxygen Delivery Method Room Air Weight: 196 lb Body Mass Index (BMI) 38.2 Lab / Micro Data Micro: Microbiology 10/06/22 11:00 Wound Abcess - Leg, Left Gram Stain - Final 10/06/22 11:00 Wound Abcess - Leg, Left Wound Culture - Final Klebsiella oxytoca Proteus mirabilis Staphylococcus aureus 10/06/22 11:00 Wound Abcess - Leg, Left Anaerobic Culture - Final No anaerobic bacteria isolated. Charges/Coding Procedures Integumentary [id number]: [id number] Otilia subq tissue 20 sq cm/< Physical Exam Const alert, oriented x3 and no apparent distress Orientation / Consciousness: confused HEENT normocephalic, head/scalp atraumatic, hearing grossly normal bilaterally, external ears normal and external nose normal Eyes EOMs intact bilaterally General Eye: normal appearance of both eyes Neck General: normal visual inspection and trachea midline Resp normal respiratory effort, normal air movement, no retractions and no use of accessory muscles Effort and Inspection: able to speak in complete sentences; Negative for stridor or audible wheezes Cardio Rate: regular rate Rhythm: regular rhythm Extremity Extremity Narrative: Bilateral lower extremity edema with some associated fluid-filled blisters. No particularly prominent varicose veins. Pulses diminished to palpation with monophasic signals. Appropriate color and normal capillary refill. Skin Wounds: wounds noted Wound Narrative: Right posterior calf cluster of superficial wounds with pink granulation tissue and minimal slough, larger in size this week. Right posteromedial calf wound still with significant adherent slough but areas of pink granulation tissue noted, no necrotic tissue or eschar, larger in size this week. Left posterior calf wound, superficial with pink granulation tissue, larger in size this week. Some significant erythema, warmth. Significant serous drainage noted from wounds. Neuro oriented x3, CN's II-XII intact bilaterally, moves all extremities and no focal motor deficits Psych Appearance: grossly normal Attitude: calm Debridement Note Debridement Note Wound debrided: Left posterolateral lower leg Laterality: Left Type of Debridement: Excisional debridement Anesthesia Used: 5% Lidocaine Gel Depth: Down to and including healthy tissue Percentage of wound debrided: 100 Instrument Used: 5mm curette Tissue Removed: Devitalized tissue, slough Severity: Limited To Skin Breakdown Amount of bleeding with debridement: Mild Bleeding Controlled with: Pressure Patient tolerated procedure: Patient tolerated procedure well Post-Debridement Measurements and Additional Note: Post-Debridement Measurements/Treatment WC - Nurse 1 - General Ulcer Assessment Start: 09/21/22 13:51 Freq: Status: Active Protocol: STACIA Activity Type Activity Date Activity User E-sign Co-sign Detail Recorded Client Recorded Date Recorded By Document 09/21/22 13:51 [facility] [id number] 09/21/22 13:55 [facility] Document 09/29/22 10:28 [facility] [id number] 09/29/22 10:36 [facility] Document 10/06/22 10:33 [facility] [id number] 10/06/22 10:46 [facility] Document 10/11/22 14:13 DL [id number] 10/11/22 14:31 DL 09/21/22 09/29/22 10/06/22 13:51 10:28 10:33 - Today's Visit Information Type of service Nurse-only Follow-up Visit Follow-up Visit Visit (Physician/SECOND CLASS WELDER (Physician/SECOND CLASS WELDER ) ) Arrival Mode Ambulatory, Ambulatory, Ambulatory, Walker Walker Walker Transfer Assistance None None None Patient Identification Verified (Name & Yes Yes Yes ) Patient Requires Transmission-Based No No No Precautions Height and Weight Body Mass Index (BMI) 38.2 38.2 38.2 BMI Classification Obese Obese Obese Vital Signs Temperature (97.8 F-99.1 F) 97.4 F L 97 F L Temperature Source Temporal Temporal Pulse Rate (60-100) 79 77 86 Pulse Location Monitor Monitor Monitor Respiratory Rate (12-18) 16 18 18 Respiratory rate source Observation Observation Observation Oxygen Delivery Method Room Air Room Air Room Air Blood Pressure (90/60-120/80) 166/51 H 145/69 H 145/103 H Blood Pressure Mean (mm Hg) 89 94 117 Source Monitor Monitor Monitor Position Sitting Sitting Sitting Blood Pressure Location Left Arm Left Arm Left Arm History Since Last Visit- (Skip if this is Patient's initial visit) Have you changed medications since your last visit? Any new allergies or adverse reactions Had a fall/change in ADL's that may increase risk of falls Signs or symptoms of abuse and/or neglect since last visit Have you been in the hospital since your No last visit? Has dressing in place as prescribed No Yes Has compression in place as prescribed No Yes Has offloadiing in place as prescribed N/A N/A Experienced any changes in pain level or No No management Left Footwear Diabetic Shoe Diabetic Shoe Regular Shoe Right Footwear Diabetic Shoe Diabetic Shoe Regular Shoe Other Footwear PT W/ DEMENTIA. ANSWERS ?'S, BUT NOT ALWAYS ACCURATE Pain Scale: 0-10 Numeric Is Patient Pain Free? Yes Yes Yes 10/11/22 14:13 - Today's Visit Information Type of service Follow-up Visit (Physician/SECOND CLASS WELDER ) Arrival Mode Ambulatory, Walker Transfer Assistance None Patient Identification Verified (Name & Yes ) Patient Requires Transmission-Based No Precautions Height and Weight Body Mass Index (BMI) 38.2 BMI Classification Obese Vital Signs Temperature (97.8 F-99.1 F) 97.1 F L Temperature Source Temporal Pulse Rate (60-100) Pulse Location Respiratory Rate (12-18) 22 H Respiratory rate source Observation Oxygen Delivery Method Blood Pressure (90/60-120/80) Blood Pressure Mean (mm Hg) Source Position Blood Pressure Location History Since Last Visit- (Skip if this is Patient's initial visit) Have you changed medications since your No last visit? Any new allergies or adverse reactions No Had a fall/change in ADL's that may No increase risk of falls Signs or symptoms of abuse and/or No neglect since last visit Have you been in the hospital since your No last visit? Has dressing in place as prescribed Yes Has compression in place as prescribed Yes Has offloadiing in place as prescribed N/A Experienced any changes in pain level or management Left Footwear Right Footwear Other Footwear Pain Scale: 0-10 Numeric Is Patient Pain Free? Yes - Nurse 1 - General Ulcer Measurement Start: 09/21/22 13:51 Freq: Status: Active Protocol: Activity Type Activity Date Activity User E-sign Co-sign Detail Recorded Client Recorded Date Recorded By Document 09/29/22 10:28 [facility] [id number] 09/29/22 10:36 [facility] Document 10/06/22 10:33 [facility] [id number] 10/06/22 10:46 [facility] Document 10/11/22 14:13 [id number] 10/11/22 14:31 DL 09/29/22 10/06/22 10/11/22 10:28 10:33 14:13 Wound Center Nurse 1 #4- L LAT SANCHEZ CLUSTER -Combined with other wound No No -Current Size (cm) - Length 3.3 0.1 -Current Size (cm) - Width 0.7 0.1 -Current Size (cm) - Depth 0.1 0.1 -Total Square Cm 2.31 0.01 -Date of Last Picture (Recall this 09/29/22 10/06/22 field) -Photo Taken Yes Yes -Epithelialization None Present Large 67-100% -Tunneling No -Undermining/Tunneling No -Circular Undermining No -Exudate Amt Large -Exudate Type Serous -Wound Margin Distinct, Outline Attached -Granulation Amt Large (67-100%) -Granulation Quality Red -Slough/Fibrin Yes -Necrosis Amt Small (1-33%) -Necrotic Tissue Type Adherent Slough -Texture (Maryann-wound Skin Appearance) Assessed, Scarring -Moisture (Maryann-wound Skin Appearance) Assessed, Maceration, Weeping -Color (Maryann-wound Skin Appearance) Assessed, Erythema -Temperature (Maryann-wound Skin No Abnormality Appearance) (Pt Warm) -Tenderness on Palpation (Maryann-wound Yes Skin Appearance) -Ulcer Cleansing Soap and Water -Foul Odor after Cleansing No -Anesthetic Used 4% Lidocaine Solution #1- R SANCHEZ -Combined with other wound No -Current Size (cm) - Length 0.1 -Current Size (cm) - Width 0.1 -Current Size (cm) - Depth 0.1 -Total Square Cm 0.01 -Date of Last Picture (Recall this 09/29/22 field) -Photo Taken Yes -Epithelialization None Present -Tunneling No -Undermining/Tunneling No -Circular Undermining No -Exudate Amt Large -Exudate Type Serous -Wound Margin Distinct, Outline Attached -Granulation Amt Large (67-100%) -Granulation Quality Red -Slough/Fibrin Yes -Necrosis Amt Small (1-33%) -Necrotic Tissue Type Adherent Slough -Texture (Maryann-wound Skin Appearance) Assessed, Scarring -Moisture (Maryann-wound Skin Appearance) Assessed, Maceration, Weeping -Color (Maryann-wound Skin Appearance) Assessed, Erythema -Temperature (Maryann-wound Skin No Abnormality Appearance) (Pt Warm) -Tenderness on Palpation (Maryann-wound Yes Skin Appearance) -Ulcer Cleansing Soap and Water -Foul Odor after Cleansing No -Anesthetic Used 4% Lidocaine Solution #5- L LAT POST LE -Combined with other wound No No -Current Size (cm) - Length 3.5 5 7 -Current Size (cm) - Width 6 4 5 -Current Size (cm) - Depth 0.1 0.1 0.1 -Total Square Cm 21.0 20 35 -Date of Last Picture (Recall this 09/29/22 10/06/22 field) -Photo Taken Yes Yes No -Epithelialization None Present None Present -Tunneling No No -Undermining/Tunneling No No -Circular Undermining No No -Exudate Amt Large Large Medium -Exudate Type Serous Serous Serosanguineous -Wound Margin Distinct, Distinct, Distinct, Outline Outline Outline Attached Attached Attached -Granulation Amt Large (67-100%) Large (67-100%) Small (1-33%) -Granulation Quality Red [address] -Slough/Fibrin Yes Yes -Necrosis Amt Small (1-33%) Small (1-33%) Small (1-33%) -Necrotic Tissue Type Adherent Slough Adherent Slough Eschar -Structure Exposed None/Limited to Skin Breakdown -Texture (Maryann-wound Skin Appearance) Assessed, Assessed, Localized Edema Scarring Scarring ,Scarring -Moisture (Maryann-wound Skin Appearance) Assessed, Assessed, Weeping Maceration, Maceration Weeping -Color (Maryann-wound Skin Appearance) Assessed, Assessed, Hemosiderin Erythema Erythema Staining -Temperature (Maryann-wound Skin No Abnormality No Abnormality No Abnormality Appearance) (Pt Warm) (Pt Warm) (Pt Warm) -Tenderness on Palpation (Maryann-wound Yes Yes Yes Skin Appearance) -Ulcer Cleansing Soap and Water Soap and Water Soap and Water -Foul Odor after Cleansing No No No -Anesthetic Used 4% Lidocaine 4% Lidocaine 4% Lidocaine Solution Solution Solution #3- R CALF CLUSTER -Combined with other wound No No -Current Size (cm) - Length 3.4 3.5 4 -Current Size (cm) - Width 3.2 2 6 -Current Size (cm) - Depth 0.1 0.1 0.2 -Total Square Cm 10.88 7.0 24 -Date of Last Picture (Recall this 09/29/22 10/06/22 field) -Photo Taken Yes Yes No -Epithelialization None Present None Present -Tunneling No No -Undermining/Tunneling No No -Circular Undermining No No -Exudate Amt Large Medium Large -Exudate Type Serous Serosanguineous Serosanguineous -Wound Margin Distinct, Distinct, Distinct, Outline Outline Outline Attached Attached Attached -Granulation Amt Large (67-100%) Large (67-100%) Medium (34-66%) -Granulation Quality Red Red Red -Slough/Fibrin Yes No -Necrosis Amt Small (1-33%) None Present (0 Medium (34-66%) %) -Necrotic Tissue Type Adherent Slough Adherent Slough -Texture (Maryann-wound Skin Appearance) Assessed, Assessed, Localized Edema Scarring Scarring ,Scarring -Moisture (Maryann-wound Skin Appearance) Assessed, Assessed, Weeping Maceration, Maceration Weeping -Color (Maryann-wound Skin Appearance) Assessed, Assessed, Hemosiderin Erythema Erythema Staining -Temperature (Maryann-wound Skin No Abnormality No Abnormality No Abnormality Appearance) (Pt Warm) (Pt Warm) (Pt Warm) -Tenderness on Palpation (Maryann-wound Yes Yes No Skin Appearance) -Ulcer Cleansing Soap and Water Soap and Water Soap and Water -Foul Odor after Cleansing No No No -Anesthetic Used 4% Lidocaine 4% Lidocaine 4% Lidocaine Solution Solution Solution #2- R MED CALF -Combined with other wound No No -Current Size (cm) - Length 2.4 4.3 1.4 -Current Size (cm) - Width 1.8 3.5 1 -Current Size (cm) - Depth 0.2 0.2 0.2 -Total Square Cm 4.32 15.05 1.4 -Date of Last Picture (Recall this 09/29/22 10/06/22 field) -Photo Taken Yes Yes No -Epithelialization None Present None Present -Tunneling No No -Undermining/Tunneling No No -Circular Undermining No No -Exudate Amt Large Large Medium -Exudate Type Serous Serous Serosanguineous -Wound Margin Distinct, Distinct, Distinct, Outline Outline Outline Attached Attached Attached -Granulation Amt Large (67-100%) Medium (34-66%) Medium (34-66%) -Granulation Quality Red [address] -Slough/Fibrin Yes Yes -Necrosis Amt Small (1-33%) Medium (34-66%) Medium (34-66%) -Necrotic Tissue Type Adherent Slough Adherent Slough Adherent Slough -Structure Exposed N/A -Texture (Maryann-wound Skin Appearance) Assessed, Assessed, Localized Edema Scarring Scarring ,Scarring -Moisture (Maryann-wound Skin Appearance) Assessed, Assessed,Dry/ Weeping Maceration, Scaly Weeping -Color (Maryann-wound Skin Appearance) Assessed, Assessed Hemosiderin Erythema Staining -Temperature (Maryann-wound Skin No Abnormality No Abnormality No Abnormality Appearance) (Pt Warm) (Pt Warm) (Pt Warm) -Tenderness on Palpation (Maryann-wound Yes Yes Skin Appearance) -Ulcer Cleansing Soap and Water Soap and Water Soap and Water -Foul Odor after Cleansing No No No -Anesthetic Used 4% Lidocaine 4% Lidocaine 4% Lidocaine Solution Solution Solution Lower Limb Edema Present Yes Yes Right Calf (cm) 43.5 44.9 41.8 Right Ankle (cm) 24 23.8 22.3 Left Calf (cm) 42.1 42.5 41.4 Left Ankle (cm) 24.6 25 23.8 WC - Nurse 2 - General Ulcer CM Notes Start: 09/21/22 13:51 Freq: Status: Active Protocol: Activity Type Activity Date Activity User E-sign Co-sign Detail Recorded Client Recorded Date Recorded By Document 09/29/22 12:06 PL [id number] 09/29/22 12:09 PL Edit Result 09/29/22 12:06 PL (1) [id number] 10/02/22 07:34 PL Document 10/06/22 11:56 PL [id number] 10/06/22 12:00 PL Document 10/11/22 14:38 MW [id number] 10/11/22 14:50 MW (1) #2- R MED CALF - Debridement, SubQ, ea addt'l 20sq cm => 2 or part thereof 09/29/22 10/06/22 10/11/22 12:06 11:56 14:38 Wound Center Nurse 2 #4- L LAT SANCHEZ CLUSTER -Time 10:43 -Correct Patient Yes -Correct Side, Site, Position Yes -Correct Procedure Yes -Procedure Performed Yes No -Type of Procedure Debridement -Clinical Debridement Subcutaneous -Tissue Removed Subcutaneous -Post Debridement (cm) - Length 4.1 -Post Debridement (cm) - Width 2.5 -Post Debridement (cm) - Depth 0.1 -Total Square (Post) (cm) 10.25 -Area of Debridement (cm) - Length 4.1 -Area of Debridement (cm) - Width 2.5 -Total Square (Area) (cm) 10.25 -Tunneling No -Undermining/Tunneling No -Circular Undermining No -Wound/Ulcer Outcome Not Healed Healed- Epithelialized -Ulcer Cleansing Rinsed/ Irrigated with Saline -Foul Odor after Cleansing No -Bioengineered Tissue No -Bleeding Controlled with Pressure -Treatment Response Procedure Tolerated Well -Debridement - Subq, 1st 20sq cm No #1- R SANCHEZ -Procedure Performed No -Wound/Ulcer Outcome Healed- Epithelialized #5- L LAT POST LE -Time 10: 11:02 14:38 -Correct Patient Yes Yes Yes -Correct Side, Site, Position Yes Yes Yes -Correct Procedure Yes Yes Yes -Procedure Performed Yes Yes Yes -Type of Procedure Debridement Debridement Debridement -Clinical Debridement Subcutaneous Subcutaneous Subcutaneous -Tissue Removed Subcutaneous Subcutaneous Subcutaneous -Post Debridement (cm) - Length 5.0 5.6 6.3 -Post Debridement (cm) - Width 3.3 3.7 4.7 -Post Debridement (cm) - Depth 0.1 0.1 0.1 -Total Square (Post) (cm) 16.50 20.72 29.61 -Area of Debridement (cm) - Length 5.0 5.6 6.3 -Area of Debridement (cm) - Width 3.3 3.7 4.7 -Total Square (Area) (cm) 16.50 20.72 29.61 -Tunneling No No No -Undermining/Tunneling No No No -Circular Undermining No No No -Wound/Ulcer Outcome Not Healed Not Healed Not Healed -Ulcer Cleansing Rinsed/ Rinsed/ Rinsed/ Irrigated with Irrigated with Irrigated with Saline Saline Saline -Foul Odor after Cleansing No No No -Bioengineered Tissue No No No -Bleeding Controlled with Pressure Pressure Pressure -Treatment Response Procedure Procedure Procedure Tolerated Well Tolerated Well Tolerated Well -Offloading No -Debridement - Subq, 1st 20sq cm No No Yes -Debridement, SubQ, ea addt'l 20sq cm 3 or part thereof #3- R CALF CLUSTER -Time 10: 11:02 14:39 -Correct Patient Yes Yes Yes -Correct Side, Site, Position Yes Yes Yes -Correct Procedure Yes Yes Yes -Procedure Performed Yes Yes Yes -Type of Procedure Debridement Debridement Debridement -Clinical Debridement Subcutaneous Subcutaneous Subcutaneous -Tissue Removed Subcutaneous Subcutaneous Subcutaneous -Post Debridement (cm) - Length 4.5 4.5 4.0 -Post Debridement (cm) - Width 3.6 3.6 4.2 -Post Debridement (cm) - Depth 0.1 0.1 0.1 -Total Square (Post) (cm) 16.20 16.20 16.80 -Area of Debridement (cm) - Length 4.5 4.5 4.0 -Area of Debridement (cm) - Width 3.6 3.6 4.2 -Total Square (Area) (cm) 16.20 16.20 16.80 -Tunneling No No No -Undermining/Tunneling No No No -Circular Undermining No No No -Wound/Ulcer Outcome Not Healed Not Healed Not Healed -Ulcer Cleansing Rinsed/ Rinsed/ Rinsed/ Irrigated with Irrigated with Irrigated with Saline Saline Saline -Foul Odor after Cleansing No No No -Bioengineered Tissue No No No -Bleeding Controlled with Pressure Pressure Pressure -Treatment Response Procedure Procedure Procedure Tolerated Well Tolerated Well Tolerated Well -Offloading No -Debridement - Subq, 1st 20sq cm No No No #2- R MED CALF -Time 10:43 11:02 14:39 -Correct Patient Yes Yes Yes -Correct Side, Site, Position Yes Yes Yes -Correct Procedure Yes Yes Yes -Procedure Performed Yes Yes Yes -Type of Procedure Debridement Debridement Debridement -Clinical Debridement Subcutaneous Subcutaneous Subcutaneous -Tissue Removed Subcutaneous Subcutaneous Subcutaneous -Post Debridement (cm) - Length 3.0 2.9 3.9 -Post Debridement (cm) - Width 2.1 1.9 3.7 -Post Debridement (cm) - Depth 0.1 0.1 0.1 -Total Square (Post) (cm) 6.30 5.51 14.43 -Area of Debridement (cm) - Length 3.0 2.9 3.9 -Area of Debridement (cm) - Width 2.1 1.9 3.7 -Total Square (Area) (cm) 6.30 5.51 14.43 -Tunneling No No No -Undermining/Tunneling No No No -Circular Undermining No No No -Wound/Ulcer Outcome Not Healed Not Healed Not Healed -Ulcer Cleansing Rinsed/ Rinsed/ Rinsed/ Irrigated with Irrigated with Irrigated with Saline Saline Saline -Foul Odor after Cleansing No No No -Bioengineered Tissue No No No -Bleeding Controlled with Pressure Pressure Pressure -Treatment Response Procedure Procedure Procedure Tolerated Well Tolerated Well Tolerated Well -Offloading No -Debridement - Subq, 1st 20sq cm Yes Yes No -Debridement, SubQ, ea addt'l 20sq cm 2 2 or part thereof Pain Scale: 0-10 Numeric Is Patient Pain Free? Yes Yes Yes WC - Nurse 3 - General Ulcer D/C NN Start: 09/21/22 13:51 Freq: Status: Active Protocol: Activity Type Activity Date Activity User E-sign Co-sign Detail Recorded Client Recorded Date Recorded By Document 09/21/22 13:51 [facility] [id number] 09/21/22 13:55 [facility] Document 09/29/22 11:02 BM [id number] 09/29/22 11:04 BM Document 10/06/22 12:10 AK [id number] 10/06/22 12:14 [facility] Document 10/11/22 15:01 RB [id number] 10/11/22 15:03 RB 09/21/22 09/29/22 10/06/22 13:51 11:02 12:10 Vital Signs Temperature (97.8 F-99.1 F) 97.4 F L Temperature Source Temporal Pulse Rate (60-100) 79 Pulse Location Monitor Respiratory Rate (12-18) 16 Respiratory rate source Observation Oxygen Delivery Method Room Air Blood Pressure (90/60-120/80) 166/51 H Blood Pressure Mean (mm Hg) 89 Source Monitor Position Sitting Blood Pressure Location Left Arm Pain Scale: 0-10 Numeric Is Patient Pain Free? Yes Yes Yes bilateral legs -Description -Intensity -Pain Behavior -Pain Aggravating Factors -Alleviating Factors/Interventions -Effectiveness of Alleviating Factor/ Intervention Wound Care Center Nurse 3 #4- L LAT SANCHEZ CLUSTER -Ulcer Cleansing Rinsed/ Rinsed/ Irrigated with Irrigated with Saline Saline -Foul Odor after Cleansing No No -Primary Dressing Applied Fibracol Plus Fibracol Plus 4x4 4x4,Optilok 8x12 -Other Dressing ABD per jf rn -Primary Dressing Covered/Secured with Dry Gauze & Dry Gauze & Roll Gauze, Roll Gauze, Secured with Secured with Tape Tape -Fibracol Plus 4x4 0 0 -Optilok 8x12 0 #1- R SANCHEZ -Ulcer Cleansing Rinsed/ Rinsed/ Irrigated with Irrigated with Saline Saline -Foul Odor after Cleansing No No -Primary Dressing Applied Fibracol Plus Fibracol Plus 4x4 4x4,Optilok 8x12 -Other Dressing ABD -Primary Dressing Covered/Secured with Dry Gauze & Dry Gauze & Roll Gauze, Roll Gauze, Secured with Secured with Tape Tape -Other Covering per rn -Fibracol Plus 4x4 0 0 -Optilok 8x12 0 #5- L LAT POST LE -Ulcer Cleansing Soap and Water Rinsed/ Rinsed/ Irrigated with Irrigated with Saline Saline -Foul Odor after Cleansing No No No -Negative Pressure Wound Therapy N/A -Primary Dressing Applied Fibracol Plus Fibracol Plus Optilok 6.5x10 4x4 4x4,Optilok 8x12 -Other Dressing ABD per rn hydrogel -Primary Dressing Covered/Secured with Dry Gauze & Dry Gauze & Dry Gauze & Roll Gauze, Roll Gauze, Roll Gauze, Secured with Secured with Secured with Tape Tape Tape -Aquacel Extra -Fibracol Plus 4x4 1 1 -Optilok 6.5x10 1 -Optilok 8x12 2 #3- R CALF CLUSTER -Ulcer Cleansing Rinsed/ Rinsed/ Rinsed/ Irrigated with Irrigated with Irrigated with Saline Saline Saline -Foul Odor after Cleansing No No No -Negative Pressure Wound Therapy N/A -Primary Dressing Applied Fibracol Plus Fibracol Plus Optilok 6.5x10 4x4 4x4,Optilok 8x12 -Other Dressing ABD per rn hydrogel -Primary Dressing Covered/Secured with Dry Gauze & Dry Gauze & Dry Gauze & Roll Gauze, Roll Gauze, Roll Gauze, Secured with Secured with Secured with Tape Tape Tape -Fibracol Plus 4x4 0 0 -Optilok 6.5x10 1 -Optilok 8x12 0 #2- R MED CALF -Ulcer Cleansing Rinsed/ Rinsed/ Rinsed/ Irrigated with Irrigated with Irrigated with Saline Saline Saline -Foul Odor after Cleansing No No No -Negative Pressure Wound Therapy N/A -Primary Dressing Applied Fibracol Plus 4x4,Optilok 8x12 -Other Dressing HYDROGEL per rn hydrogel -Primary Dressing Covered/Secured with Dry Gauze & Dry Gauze & Dry Gauze & Roll Gauze, Roll Gauze, Roll Gauze, Secured with Secured with Secured with Tape Tape Tape -Other Covering ABD -Fibracol Plus 4x4 0 -Optilok 8x12 0 Right -Tubular Bandage -Size of Tubigrip Used -Size D ($) Left -Tubular Bandage -Size of Tubigrip Used -Size D ($) BLE -Lotion applied to leg before No compression wrap -Tubular Bandage Single Layer Single Layer Single Layer -Size of Tubigrip Used Size E Size E Size E -Size E ($) 4 2 1 -Other SENT EXTRA Treatment Response Procedure Procedure Tolerated Well Tolerated Well WC - Visit Discharge Discharge Condition Stable Stable Stable Ambulatory Status Ambulatory, Ambulatory, Ambulatory, Walker Walker Walker Transportation [place] TRANSPORT al transport Medication Reconcilliation completed & Yes provided to patient/care provider Clinical Summary of Care Provided Yes Other [facility] assisted living 10/11/22 15:01 Vital Signs Temperature (97.8 F-99.1 F) Temperature Source Pulse Rate (60-100) Pulse Location Respiratory Rate (12-18) Respiratory rate source Oxygen Delivery Method Blood Pressure (90/60-120/80) Blood Pressure Mean (mm Hg) Source Position Blood Pressure Location Pain Scale: 0-10 Numeric Is Patient Pain Free? No bilateral legs -Description Aching -Intensity 8 -Pain Behavior Withdrawal from Touch -Pain Aggravating Factors Changing Position -Alleviating Factors/Interventions Medication -Effectiveness of Alleviating Factor/ Moderately Intervention effective Wound Care Center Nurse 3 #4- L LAT SANCHEZ CLUSTER -Ulcer Cleansing -Foul Odor after Cleansing -Primary Dressing Applied -Other Dressing -Primary Dressing Covered/Secured with -Fibracol Plus 4x4 -Optilok 8x12 #1- R SANCHEZ -Ulcer Cleansing -Foul Odor after Cleansing -Primary Dressing Applied -Other Dressing -Primary Dressing Covered/Secured with -Other Covering -Fibracol Plus 4x4 -Optilok 8x12 #5- L LAT POST LE -Ulcer Cleansing -Foul Odor after Cleansing -Negative Pressure Wound Therapy -Primary Dressing Applied Aquacel Extra, Optilok 6.5x10 -Other Dressing -Primary Dressing Covered/Secured with Dry Gauze,Dry Gauze & Roll Gauze,Secured with Tape -Aquacel Extra 2 -Fibracol Plus 4x4 -Optilok 6.5x10 2 -Optilok 8x12 #3- R CALF CLUSTER -Ulcer Cleansing -Foul Odor after Cleansing -Negative Pressure Wound Therapy -Primary Dressing Applied -Other Dressing aquacel extra, super absorbant , kerlix -Primary Dressing Covered/Secured with -Fibracol Plus 4x4 -Optilok 6.5x10 -Optilok 8x12 #2- R MED CALF -Ulcer Cleansing -Foul Odor after Cleansing -Negative Pressure Wound Therapy -Primary Dressing Applied -Other Dressing -Primary Dressing Covered/Secured with Dry Gauze,Dry Gauze & Roll Gauze,Secured with Tape -Other Covering -Fibracol Plus 4x4 -Optilok 8x12 Right -Tubular Bandage Single Layer -Size of Tubigrip Used Size D -Size D ($) 1 Left -Tubular Bandage Single Layer -Size of Tubigrip Used Size D -Size D ($) 1 BLE -Lotion applied to leg before compression wrap -Tubular Bandage -Size of Tubigrip Used -Size E ($) -Other Treatment Response Procedure Tolerated Well WC - Visit Discharge Discharge Condition Stable Ambulatory Status Ambulatory, Walker Transportation Private Auto Medication Reconcilliation completed & No provided to patient/care provider Clinical Summary of Care Provided Yes Other Additional Wound Wound debrided: R posterior calf cluster Laterality: Right Type of Debridement: Excisional debridement Anesthesia Used: 5% Lidocaine Gel Depth: Down to and including healthy tissue and in the subcutaneous layer Percentage of wound debrided: 100 Instrument Used: 5mm curette Tissue Removed: slough, devitalized tissue Severity: Limited To Skin Breakdown Amount of bleeding with debridement: Mild Bleeding Controlled with: Pressure Patient tolerated procedure: Patient tolerated procedure well Additional Wound Wound debrided: R medial calf Laterality: Right Type of Debridement: Excisional debridement Anesthesia Used: 5% Lidocaine Gel Depth: Down to and including healthy tissue Percentage of wound debrided: 100 Instrument Used: 5mm curette Tissue Removed: slough, devitalized Severity: Limited To Skin Breakdown Amount of bleeding with debridement: Mild Bleeding Controlled with: Pressure Patient tolerated procedure: Patient tolerated procedure well Assessment/Plan Assessment/Plan (1) Non-pressure chronic ulcer of right calf with fat layer exposed: CODE(S): L97.212 - Non-pressure chronic ulcer of right calf with fat layer exposed (2) Non-pressure chronic ulcer of right calf limited to breakdown of skin: CODE(S): L97.211 - Non-pressure chronic ulcer of right calf limited to breakdown of skin (3) Non-pressure chronic ulcer of left calf limited to breakdown of skin: CODE(S): L97.221 - Non-pressure chronic ulcer of left calf limited to breakdown of skin PLAN: Plan Still with significant bilateral lower extremity edema. Will increase compression of tubigrips this week, will see how patient tolerates. Continue to elevate legs as much as possible whenever resting/sleeping. Continue to struggle to control moisture of the wounds. Will switch to Aquacel Extra to all wounds for increased absorbency, continue super absorber over top. I would prefer twice daily dressing changes, but patient is in [place] and seems only once daily is possible at this time, will try to discuss with facility. Wound cultures were positive for Klebsiella, Proteus, and Staph. Prescribed Keflex 500mg q6H x 7 days and Doxycycline 100mg BID x 10 days based upon sensitivity report. I encouraged her to increase protein and reduce sugar/carbs in her diet to support healing. Patient will return to clinic next week to follow with another wound care provider while I am out.
[2022-10-18 10:31] VITALS: BP 149/68; PULSE 91; RESP 16; TEMP 36.2; BMI 38.2
--- NOTE | 2022-10-18 12:49 | PCM.WC.HP ---
History of Present Illness Date of Service: 10/18/22 Chief Complaint: BLE wounds History of Wound: Patient is an 81-year-old female who resides at [facility]. She is referred by facility for evaluation and management of bilateral lower extremity wounds which have been ongoing for several weeks. Patient is unaccompanied to her appointment today. She does appear to have some level of dementia and is somewhat confused at times so is a rather poor historian. Referral paperwork indicates that patient had lower extremity cellulitis about a month ago which was treated with p.o. antibiotics. Current wound treatment consists of cleansing with wound cleanser covering with Telfa and wrapping with Kerlix daily. She reports a lot of pain associated with the wounds, but denies this pain being present prior to the wounds appearing. Patient states she is not diabetic and by review of her medication list this appears to be accurate. She states she does not smoke. She reports that she has never had wounds like this in the past. She is ambulatory and denies claudication type symptoms. She does have bilateral lower extremity edema with some fluid-filled blisters and serous fluid draining from wounds. She tells me that she does not wear compression. She typically sleeps in a chair. [facility] Home Medications acetaminophen 325 mg tablet 650 mg PO Q6H PRN Pain 09/15/22 [History Last Taken Unknown] bisacodyl 10 mg rectal suppository 10 mg UT DAILY PRN Constipation 09/15/22 [History Last Taken Unknown] furosemide 20 mg tablet 20 mg PO DAILY 09/15/22 [History Last Taken Unknown] hydroxyzine HCl 25 mg tablet 25 mg PO TID PRN ITCHING/ANXIETY 09/15/22 [History Last Taken Unknown] indapamide 2.5 mg tablet 2.5 mg PO DAILY 09/15/22 [History Last Taken Unknown] latanoprost 0.005 % eye drops 1 drp EACH EYE DAILY 09/15/22 [History Last Taken Unknown] nystatin 100,000 unit/gram topical powder 1 applic topical BID PRN Rash 09/15/22 [History Last Taken Unknown] ondansetron 4 mg disintegrating tablet 4 mg PO Q6H PRN Nausea 09/15/22 [History Last Taken Unknown] potassium chloride 20 mEq tablet,extended release 20 meq PO DAILY 09/15/22 [History Last Taken Unknown] sodium phosphates 19 gram-7 gram/118 mL enema (Fleet Enema) 118 ml UT DAILY PRN Constipation 09/15/22 [History Last Taken Unknown] venlafaxine 37.5 mg tablet 37.5 mg PO DAILY 09/15/22 [History Last Taken Unknown] doxycycline hyclate 100 mg capsule 100 mg PO BID 10 days #20 caps 10/10/22 [Rx Last Taken Unknown] Allergy/AdvReac Type Severity Reaction Status Date / Time timolol Allergy Other Verified 09/15/22 10:57 Social History Smoking Status: Never smoker ROS Constitutional Constitutional: Denies change in weight, chills, difficulty sleeping, fatigue, fever(s), frequent falls, lethargy, night sweats or weakness Eyes Eyes: Denies blindness, blurry vision, change in vision, eye pain or ptosis ENT HEENT: Denies abnormal hearing, change in voice, hearing loss, loss taste/smell or vertigo Cardiovascular Cardiovascular: Denies abdominal pain, chest pain, claudication, cold extremities, cyanosis, diaphoresis, dyspnea, dyspnea on exertion, fatigue, hypertension, irregular heart rhythm, orthopnea, palpitations, radiating jaw, neck or arm pain or syncope Respiratory/Chest Respiratory/Chest: Denies cough, dyspnea, hemoptysis, nail bed cyanosis, vik-oral cyanosis, portable oxygen @ home, productive cough or wheezing Gastrointestinal Gastrointestinal: Denies abdominal pain, change in bowel habits, change in stool character, coffee ground emesis, melena, rectal bleeding or weight changes Genitourinary Genitourinary: Denies abdominal discomfort, burning urination, difficulty urinating or flank pain Musculoskeletal Musculoskeletal: Denies abnormal gait, difficulty walking, joint swelling, muscle cramps, muscle weakness or numbness Integumentary Integumentary: Reports wounds; Denies change in pigmentation, changing lesions, erythema, lesions, rash or unusual bruising Neurologic Neurologic: Denies abnormal gait, abnormal movements, abnormal speech, behavior changes, frequent falls, syncope, tingling or weakness Psychiatric Psychiatric: Denies behavioral changes, cognitive impairment or depression Endocrine Endocrinology: Denies change in body appearance, cold intolerance, excessive sweating, flushing, heat intolerance, palpitations, polydipsia, polyphagia or polyuria Hematologic/Lymphatic Hematologic/Lymphatic: Denies anemia, easy bleeding, easy bruising or lymphadenopathy Allergic/Immunologic Allergic/Immunologic: Denies seasonal rhinorrhea, throat swelling, tongue swelling, hives or asthma Vital Signs Vital Signs Vital Signs: 10/18/22 10:31 Temperature 97.1 F L Temperature Source Temporal Pulse Rate 91 Respiratory Rate 16 Blood Pressure 149/68 H Blood Pressure Mean 95 Blood Pressure Source Monitor Blood Pressure Position Sitting Blood Pressure Location Left Arm Oxygen Delivery Method Room Air Weight Weight: 196 lb Body Mass Index (BMI) 38.2 Physical Exam Const alert, oriented x3 and no apparent distress Orientation / Consciousness: confused HEENT normocephalic, head/scalp atraumatic, hearing grossly normal bilaterally, external ears normal and external nose normal Eyes EOMs intact bilaterally General Eye: normal appearance of both eyes Neck General: normal visual inspection and trachea midline Resp normal respiratory effort, normal air movement, no retractions and no use of accessory muscles Effort and Inspection: able to speak in complete sentences; Negative for stridor or audible wheezes Cardio Rate: regular rate Rhythm: regular rhythm Extremity Extremity Narrative: Bilateral lower extremity edema with some associated fluid-filled blisters. No particularly prominent varicose veins. Pulses diminished to palpation with monophasic signals. Appropriate color and normal capillary refill. Skin Wounds: wounds noted Wound Narrative: Right posterior calf cluster of superficial wounds with pink granulation tissue and minimal slough, larger in size this week. Right posteromedial calf wound still with significant adherent slough but areas of pink granulation tissue noted, no necrotic tissue or eschar, larger in size this week. Left posterior calf wound, superficial with pink granulation tissue, larger in size this week. Some significant erythema, warmth. Significant serous drainage noted from wounds. Neuro oriented x3, CN's II-XII intact bilaterally, moves all extremities and no focal motor deficits Psych Appearance: grossly normal Attitude: calm Debridement Note Debridement Note Wound debrided: Right posterior lower leg ulcers Type of Debridement: Excisional debridement Anesthesia Used: 5% Lidocaine Gel Depth: Down to and including healthy tissue and in the subcutaneous layer Percentage of wound debrided: 100 Instrument Used: 5mm curette Tissue Removed: Slough Severity: Limited To Skin Breakdown Amount of bleeding with debridement: Mild Bleeding Controlled with: Compression and gauze Patient tolerated procedure: Patient tolerated procedure well Post-Debridement Measurements and Additional Note: Post-Debridement Measurements/Treatment WC - Nurse 1 - General Ulcer Assessment Start: 09/21/22 13:51 Freq: Status: Active Protocol: WC.LOWEXT Activity Type Activity Date Activity User E-sign Co-sign Detail Recorded Client Recorded Date Recorded By Document 09/21/22 13:51 BM [id number] 09/21/22 13:55 BMF Document 09/29/22 10:28 BMF [id number] 09/29/22 10:36 BMF Document 10/06/22 10:33 BMF [id number] 10/06/22 10:46 BMF Document 10/11/22 14:13 DL [id number] 10/11/22 14:31 DL Document 10/18/22 10:31 BM [id number] 10/18/22 10:48 BMF 09/21/22 09/29/22 10/06/22 13:51 10:28 10:33 WC - Today's Visit Information Type of service Nurse-only Follow-up Visit Follow-up Visit Visit (Physician/SENIOR RESEARCH PROJECT MANAGER (Physician/SENIOR RESEARCH PROJECT MANAGER ) ) Arrival Mode Ambulatory, Ambulatory, Ambulatory, Walker Walker Walker Transfer Assistance None None None Patient Identification Verified (Name & Yes Yes Yes ) Patient Requires Transmission-Based No No No Precautions Height and Weight Body Mass Index (BMI) 38.2 38.2 38.2 BMI Classification Obese Obese Obese Vital Signs Temperature (97.8 F-99.1 F) 97.4 F L 97 F L Temperature Source Temporal Temporal Pulse Rate (60-100) 79 77 86 Pulse Location Monitor Monitor Monitor Respiratory Rate (12-18) 16 18 18 Respiratory rate source Observation Observation Observation Oxygen Delivery Method Room Air Room Air Room Air Blood Pressure (90/60-120/80) 166/51 H 145/69 H 145/103 H Blood Pressure Mean 89 94 117 Source Monitor Monitor Monitor Position Sitting Sitting Sitting Blood Pressure Location Left Arm Left Arm Left Arm History Since Last Visit- (Skip if this is Patient's initial visit) Have you changed medications since your last visit? Any new allergies or adverse reactions Had a fall/change in ADL's that may increase risk of falls Signs or symptoms of abuse and/or neglect since last visit Have you been in the hospital since your No last visit? Has dressing in place as prescribed No Yes Has compression in place as prescribed No Yes Has offloadiing in place as prescribed N/A N/A Experienced any changes in pain level or No No management Left Footwear Diabetic Shoe Diabetic Shoe Regular Shoe Right Footwear Diabetic Shoe Diabetic Shoe Regular Shoe Other Footwear PT W/ DEMENTIA. ANSWERS ?'S, BUT NOT ALWAYS ACCURATE Pain Scale: 0-10 Numeric Is Patient Pain Free? Yes Yes Yes WOUNDS -Description -Intensity -Duration (hours) -Pain Behavior -Pain Aggravating Factors -Alleviating Factors/Interventions 10/11/22 10/18/22 14:13 10:31 WC - Today's Visit Information Type of service Follow-up Visit Follow-up Visit (Physician/SENIOR RESEARCH PROJECT MANAGER (Physician/SENIOR RESEARCH PROJECT MANAGER ) ) Arrival Mode Ambulatory, Ambulatory, Walker Walker Transfer Assistance None None Patient Identification Verified (Name & Yes Yes ) Patient Requires Transmission-Based No No Precautions Height and Weight Body Mass Index (BMI) 38.2 38.2 BMI Classification Obese Obese Vital Signs Temperature (97.8 F-99.1 F) 97.1 F L 97.1 F L Temperature Source Temporal Temporal Pulse Rate (60-100) 91 Pulse Location Monitor Respiratory Rate (12-18) 22 H 16 Respiratory rate source Observation Observation Oxygen Delivery Method Room Air Blood Pressure (90/60-120/80) 149/68 H Blood Pressure Mean 95 Source Monitor Position Sitting Blood Pressure Location Left Arm History Since Last Visit- (Skip if this is Patient's initial visit) Have you changed medications since your No No last visit? Any new allergies or adverse reactions No No Had a fall/change in ADL's that may No No increase risk of falls Signs or symptoms of abuse and/or No No neglect since last visit Have you been in the hospital since your No No last visit? Has dressing in place as prescribed Yes Yes Has compression in place as prescribed Yes No Has offloadiing in place as prescribed N/A N/A Experienced any changes in pain level or No management Left Footwear Diabetic Shoe Right Footwear Diabetic Shoe Other Footwear PT ANSWERS QUESTIONS BUT DOES HAVE DEMENTIA Pain Scale: 0-10 Numeric Is Patient Pain Free? Yes No WOUNDS -Description Throbbing, Burning,Aching -Intensity 7 -Duration (hours) Chronic -Pain Behavior No Change in Behavior -Pain Aggravating Factors Changing Position, Exercise/ Activity, Standing, Sitting,Walking ,Debridement -Alleviating Factors/Interventions Distraction, Will continue to monitor, Patient denies need for intervention, Emotional Support WC - Nurse 1 - General Ulcer Measurement Start: 09/21/22 13:51 Freq: Status: Active Protocol: Activity Type Activity Date Activity User E-sign Co-sign Detail Recorded Client Recorded Date Recorded By Document 09/29/22 10:28 [facility] [id number] 09/29/22 10:36 BM Document 10/06/22 10:33 BMF [id number] 10/06/22 10:46 BMF Document 10/11/22 14:13 DL [id number] 10/11/22 14:31 DL Document 10/18/22 10:31 BMF [id number] 10/18/22 10:48 BMF 09/29/22 10/06/22 10/11/22 10:28 10:33 14:13 Wound Center Nurse 1 #4- L LAT SANCHEZ CLUSTER -Combined with other wound No No -Current Size (cm) - Length 3.3 0.1 -Current Size (cm) - Width 0.7 0.1 -Current Size (cm) - Depth 0.1 0.1 -Total Square Cm 2.31 0.01 -Date of Last Picture (Recall this 09/29/22 10/06/22 field) -Photo Taken Yes Yes -Epithelialization None Present Large 67-100% -Tunneling No -Undermining/Tunneling No -Circular Undermining No -Exudate Amt Large -Exudate Type Serous -Wound Margin Distinct, Outline Attached -Granulation Amt Large (67-100%) -Granulation Quality Red -Slough/Fibrin Yes -Necrosis Amt Small (1-33%) -Necrotic Tissue Type Adherent Slough -Texture (Vik-wound Skin Appearance) Assessed, Scarring -Moisture (Vik-wound Skin Appearance) Assessed, Maceration, Weeping -Color (Vik-wound Skin Appearance) Assessed, Erythema -Temperature (Vik-wound Skin No Abnormality Appearance) (Pt Warm) -Tenderness on Palpation (Vik-wound Yes Skin Appearance) -Ulcer Cleansing Soap and Water -Foul Odor after Cleansing No -Anesthetic Used 4% Lidocaine Solution #2- R MED CALF -Combined with other wound No No -Current Size (cm) - Length 2.4 4.3 1.4 -Current Size (cm) - Width 1.8 3.5 1 -Current Size (cm) - Depth 0.2 0.2 0.2 -Total Square Cm 4.32 15.05 1.4 -Date of Last Picture (Recall this 09/29/22 10/06/22 field) -Photo Taken Yes Yes No -Epithelialization None Present None Present -Tunneling No No -Undermining/Tunneling No No -Circular Undermining No No -Exudate Amt Large Large Medium -Exudate Type Serous Serous Serosanguineous -Wound Margin Distinct, Distinct, Distinct, Outline Outline Outline Attached Attached Attached -Granulation Amt Large (67-100%) Medium (34-66%) Medium (34-66%) -Granulation Quality Red Red Hasty -Slough/Fibrin Yes Yes -Necrosis Amt Small (1-33%) Medium (34-66%) Medium (34-66%) -Necrotic Tissue Type Adherent Slough Adherent Slough Adherent Slough -Structure Exposed N/A -Texture (Vik-wound Skin Appearance) Assessed, Assessed, Localized Edema Scarring Scarring ,Scarring -Moisture (Vik-wound Skin Appearance) Assessed, Assessed,Dry/ Weeping Maceration, Scaly Weeping -Color (Vik-wound Skin Appearance) Assessed, Assessed Hemosiderin Erythema Staining -Temperature (Vik-wound Skin No Abnormality No Abnormality No Abnormality Appearance) (Pt Warm) (Pt Warm) (Pt Warm) -Tenderness on Palpation (Vik-wound Yes Yes Skin Appearance) -Ulcer Cleansing Soap and Water Soap and Water Soap and Water -Foul Odor after Cleansing No No No -Anesthetic Used 4% Lidocaine 4% Lidocaine 4% Lidocaine Solution Solution Solution #1- R SANCHEZ -Combined with other wound No -Current Size (cm) - Length 0.1 -Current Size (cm) - Width 0.1 -Current Size (cm) - Depth 0.1 -Total Square Cm 0.01 -Date of Last Picture (Recall this 09/29/22 field) -Photo Taken Yes -Epithelialization None Present -Tunneling No -Undermining/Tunneling No -Circular Undermining No -Exudate Amt Large -Exudate Type Serous -Wound Margin Distinct, Outline Attached -Granulation Amt Large (67-100%) -Granulation Quality Red -Slough/Fibrin Yes -Necrosis Amt Small (1-33%) -Necrotic Tissue Type Adherent Slough -Texture (Vik-wound Skin Appearance) Assessed, Scarring -Moisture (Vik-wound Skin Appearance) Assessed, Maceration, Weeping -Color (Vik-wound Skin Appearance) Assessed, Erythema -Temperature (Vik-wound Skin No Abnormality Appearance) (Pt Warm) -Tenderness on Palpation (Vik-wound Yes Skin Appearance) -Ulcer Cleansing Soap and Water -Foul Odor after Cleansing No -Anesthetic Used 4% Lidocaine Solution #5- L LAT POST LE -Combined with other wound No No -Current Size (cm) - Length 3.5 5 7 -Current Size (cm) - Width 6 4 5 -Current Size (cm) - Depth 0.1 0.1 0.1 -Total Square Cm 21.0 20 35 -Date of Last Picture (Recall this 09/29/22 10/06/22 field) -Photo Taken Yes Yes No -Epithelialization None Present None Present -Tunneling No No -Undermining/Tunneling No No -Circular Undermining No No -Exudate Amt Large Large Medium -Exudate Type Serous Serous Serosanguineous -Wound Margin Distinct, Distinct, Distinct, Outline Outline Outline Attached Attached Attached -Granulation Amt Large (67-100%) Large (67-100%) Small (1-33%) -Granulation Quality Red Red Hasty -Slough/Fibrin Yes Yes -Necrosis Amt Small (1-33%) Small (1-33%) Small (1-33%) -Necrotic Tissue Type Adherent Slough Adherent Slough Eschar -Structure Exposed None/Limited to Skin Breakdown -Texture (Vik-wound Skin Appearance) Assessed, Assessed, Localized Edema Scarring Scarring ,Scarring -Moisture (Vik-wound Skin Appearance) Assessed, Assessed, Weeping Maceration, Maceration Weeping -Color (Vik-wound Skin Appearance) Assessed, Assessed, Hemosiderin Erythema Erythema Staining -Temperature (Vik-wound Skin No Abnormality No Abnormality No Abnormality Appearance) (Pt Warm) (Pt Warm) (Pt Warm) -Tenderness on Palpation (Vik-wound Yes Yes Yes Skin Appearance) -Ulcer Cleansing Soap and Water Soap and Water Soap and Water -Foul Odor after Cleansing No No No -Anesthetic Used 4% Lidocaine 4% Lidocaine 4% Lidocaine Solution Solution Solution #3- R CALF CLUSTER -Combined with other wound No No -Current Size (cm) - Length 3.4 3.5 4 -Current Size (cm) - Width 3.2 2 6 -Current Size (cm) - Depth 0.1 0.1 0.2 -Total Square Cm 10.88 7.0 24 -Date of Last Picture (Recall this 09/29/22 10/06/22 field) -Photo Taken Yes Yes No -Epithelialization None Present None Present -Tunneling No No -Undermining/Tunneling No No -Circular Undermining No No -Exudate Amt Large Medium Large -Exudate Type Serous Serosanguineous Serosanguineous -Wound Margin Distinct, Distinct, Distinct, Outline Outline Outline Attached Attached Attached -Granulation Amt Large (67-100%) Large (67-100%) Medium (34-66%) -Granulation Quality Red Red Red -Slough/Fibrin Yes No -Necrosis Amt Small (1-33%) None Present (0 Medium (34-66%) %) -Necrotic Tissue Type Adherent Slough Adherent Slough -Texture (Vik-wound Skin Appearance) Assessed, Assessed, Localized Edema Scarring Scarring ,Scarring -Moisture (Vik-wound Skin Appearance) Assessed, Assessed, Weeping Maceration, Maceration Weeping -Color (Vik-wound Skin Appearance) Assessed, Assessed, Hemosiderin Erythema Erythema Staining -Temperature (Vik-wound Skin No Abnormality No Abnormality No Abnormality Appearance) (Pt Warm) (Pt Warm) (Pt Warm) -Tenderness on Palpation (Vik-wound Yes Yes No Skin Appearance) -Ulcer Cleansing Soap and Water Soap and Water Soap and Water -Foul Odor after Cleansing No No No -Anesthetic Used 4% Lidocaine 4% Lidocaine 4% Lidocaine Solution Solution Solution Lower Limb Edema Present Yes Yes Right Calf (cm) 43.5 44.9 41.8 Right Ankle (cm) 24 23.8 22.3 Left Calf (cm) 42.1 42.5 41.4 Left Ankle (cm) 24.6 25 23.8 10/18/22 10:31 Wound Center Nurse 1 #4- L LAT SANCHEZ CLUSTER -Combined with other wound -Current Size (cm) - Length -Current Size (cm) - Width -Current Size (cm) - Depth -Total Square Cm -Date of Last Picture (Recall this field) -Photo Taken -Epithelialization -Tunneling -Undermining/Tunneling -Circular Undermining -Exudate Amt -Exudate Type -Wound Margin -Granulation Amt -Granulation Quality -Slough/Fibrin -Necrosis Amt -Necrotic Tissue Type -Texture (Vik-wound Skin Appearance) -Moisture (Vik-wound Skin Appearance) -Color (Vik-wound Skin Appearance) -Temperature (Vik-wound Skin Appearance) -Tenderness on Palpation (Vik-wound Skin Appearance) -Ulcer Cleansing -Foul Odor after Cleansing -Anesthetic Used #2- R MED CALF -Combined with other wound No -Current Size (cm) - Length 3.3 -Current Size (cm) - Width 2 -Current Size (cm) - Depth 0.2 -Total Square Cm 6.6 -Date of Last Picture (Recall this 10/18/22 field) -Photo Taken Yes -Epithelialization None Present -Tunneling No -Undermining/Tunneling No -Circular Undermining No -Exudate Amt Large -Exudate Type Serosanguineous -Wound Margin Distinct, Outline Attached -Granulation Amt Medium (34-66%) -Granulation Quality Red -Slough/Fibrin Yes -Necrosis Amt Medium (34-66%) -Necrotic Tissue Type Adherent Slough -Structure Exposed -Texture (Vik-wound Skin Appearance) Assessed, Scarring -Moisture (Vik-wound Skin Appearance) Assessed, Maceration -Color (Vik-wound Skin Appearance) Assessed -Temperature (Vik-wound Skin No Abnormality Appearance) (Pt Warm) -Tenderness on Palpation (Vik-wound No Skin Appearance) -Ulcer Cleansing Soap and Water -Foul Odor after Cleansing No -Anesthetic Used 4% Lidocaine Solution #1- R SANCHEZ -Combined with other wound -Current Size (cm) - Length -Current Size (cm) - Width -Current Size (cm) - Depth -Total Square Cm -Date of Last Picture (Recall this field) -Photo Taken -Epithelialization -Tunneling -Undermining/Tunneling -Circular Undermining -Exudate Amt -Exudate Type -Wound Margin -Granulation Amt -Granulation Quality -Slough/Fibrin -Necrosis Amt -Necrotic Tissue Type -Texture (Vik-wound Skin Appearance) -Moisture (Vik-wound Skin Appearance) -Color (Vik-wound Skin Appearance) -Temperature (Vik-wound Skin Appearance) -Tenderness on Palpation (Vik-wound Skin Appearance) -Ulcer Cleansing -Foul Odor after Cleansing -Anesthetic Used #5- L LAT POST LE -Combined with other wound No -Current Size (cm) - Length 3.8 -Current Size (cm) - Width 3.8 -Current Size (cm) - Depth 0.1 -Total Square Cm 14.44 -Date of Last Picture (Recall this 10/18/22 field) -Photo Taken Yes -Epithelialization None Present -Tunneling No -Undermining/Tunneling No -Circular Undermining No -Exudate Amt Large -Exudate Type Serosanguineous -Wound Margin Distinct, Outline Attached -Granulation Amt Medium (34-66%) -Granulation Quality Red -Slough/Fibrin Yes -Necrosis Amt Medium (34-66%) -Necrotic Tissue Type Adherent Slough -Structure Exposed -Texture (Vik-wound Skin Appearance) Assessed, Scarring -Moisture (Vik-wound Skin Appearance) Assessed, Maceration -Color (Vik-wound Skin Appearance) Assessed -Temperature (Vik-wound Skin No Abnormality Appearance) (Pt Warm) -Tenderness on Palpation (Vik-wound Yes Skin Appearance) -Ulcer Cleansing Soap and Water -Foul Odor after Cleansing No -Anesthetic Used 4% Lidocaine Solution #3- R CALF CLUSTER -Combined with other wound No -Current Size (cm) - Length 3.2 -Current Size (cm) - Width 3 -Current Size (cm) - Depth 0.2 -Total Square Cm 9.6 -Date of Last Picture (Recall this 10/18/22 field) -Photo Taken Yes -Epithelialization None Present -Tunneling No -Undermining/Tunneling No -Circular Undermining No -Exudate Amt Large -Exudate Type Serosanguineous -Wound Margin Distinct, Outline Attached -Granulation Amt Medium (34-66%) -Granulation Quality Red -Slough/Fibrin Yes -Necrosis Amt Medium (34-66%) -Necrotic Tissue Type Adherent Slough -Texture (Vik-wound Skin Appearance) Assessed, Scarring -Moisture (Vik-wound Skin Appearance) Assessed, Maceration -Color (Vik-wound Skin Appearance) Assessed -Temperature (Vik-wound Skin No Abnormality Appearance) (Pt Warm) -Tenderness on Palpation (Vik-wound Yes Skin Appearance) -Ulcer Cleansing Soap and Water -Foul Odor after Cleansing No -Anesthetic Used 4% Lidocaine Solution Lower Limb Edema Present Yes Right Calf (cm) 42.3 Right Ankle (cm) 24.1 Left Calf (cm) 43 Left Ankle (cm) 24.7 WC - Nurse 2 - General Ulcer CM Notes Start: 09/21/22 13:51 Freq: Status: Active Protocol: Activity Type Activity Date Activity User E-sign Co-sign Detail Recorded Client Recorded Date Recorded By Document 09/29/22 12:06 PL [id number] 09/29/22 12:09 PL Edit Result 09/29/22 12:06 PL (1) [id number] 10/02/22 07:34 PL Document 10/06/22 11:56 PL [id number] 10/06/22 12:00 PL Document 10/11/22 14:38 MW [id number] 10/11/22 14:50 MW Document 10/18/22 11:06 MW [id number] 10/18/22 11:11 MW (1) #2- R MED CALF - Debridement, SubQ, ea addt'l 20sq cm => 2 or part thereof 09/29/22 10/06/22 10/11/22 12:06 11:56 14:38 Wound Center Nurse 2 #4- L LAT SANCHEZ CLUSTER -Time 10:43 -Correct Patient Yes -Correct Side, Site, Position Yes -Correct Procedure Yes -Procedure Performed Yes No -Type of Procedure Debridement -Clinical Debridement Subcutaneous -Tissue Removed Subcutaneous -Post Debridement (cm) - Length 4.1 -Post Debridement (cm) - Width 2.5 -Post Debridement (cm) - Depth 0.1 -Total Square (Post) (cm) 10.25 -Area of Debridement (cm) - Length 4.1 -Area of Debridement (cm) - Width 2.5 -Total Square (Area) (cm) 10.25 -Tunneling No -Undermining/Tunneling No -Circular Undermining No -Wound/Ulcer Outcome Not Healed Healed- Epithelialized -Ulcer Cleansing Rinsed/ Irrigated with Saline -Foul Odor after Cleansing No -Bioengineered Tissue No -Bleeding Controlled with Pressure -Treatment Response Procedure Tolerated Well -Debridement - Subq, 1st 20sq cm No #2- R MED CALF -Time 10:43 11:02 14:39 -Correct Patient Yes Yes Yes -Correct Side, Site, Position Yes Yes Yes -Correct Procedure Yes Yes Yes -Procedure Performed Yes Yes Yes -Type of Procedure Debridement Debridement Debridement -Clinical Debridement Subcutaneous Subcutaneous Subcutaneous -Tissue Removed Subcutaneous Subcutaneous Subcutaneous -Post Debridement (cm) - Length 3.0 2.9 3.9 -Post Debridement (cm) - Width 2.1 1.9 3.7 -Post Debridement (cm) - Depth 0.1 0.1 0.1 -Total Square (Post) (cm) 6.30 5.51 14.43 -Area of Debridement (cm) - Length 3.0 2.9 3.9 -Area of Debridement (cm) - Width 2.1 1.9 3.7 -Total Square (Area) (cm) 6.30 5.51 14.43 -Tunneling No No No -Undermining/Tunneling No No No -Circular Undermining No No No -Wound/Ulcer Outcome Not Healed Not Healed Not Healed -Ulcer Cleansing Rinsed/ Rinsed/ Rinsed/ Irrigated with Irrigated with Irrigated with Saline Saline Saline -Foul Odor after Cleansing No No No -Bioengineered Tissue No No No -Bleeding Controlled with Pressure Pressure Pressure -Treatment Response Procedure Procedure Procedure Tolerated Well Tolerated Well Tolerated Well -Offloading No -Debridement - Subq, 1st 20sq cm Yes Yes No -Debridement, SubQ, ea addt'l 20sq cm 2 2 or part thereof #1- R SANCHEZ -Procedure Performed No -Wound/Ulcer Outcome Healed- Epithelialized #5- L LAT POST LE -Time 10:43 11:02 14:38 -Correct Patient Yes Yes Yes -Correct Side, Site, Position Yes Yes Yes -Correct Procedure Yes Yes Yes -Procedure Performed Yes Yes Yes -Type of Procedure Debridement Debridement Debridement -Clinical Debridement Subcutaneous Subcutaneous Subcutaneous -Tissue Removed Subcutaneous Subcutaneous Subcutaneous -Post Debridement (cm) - Length 5.0 5.6 6.3 -Post Debridement (cm) - Width 3.3 3.7 4.7 -Post Debridement (cm) - Depth 0.1 0.1 0.1 -Total Square (Post) (cm) 16.50 20.72 29.61 -Area of Debridement (cm) - Length 5.0 5.6 6.3 -Area of Debridement (cm) - Width 3.3 3.7 4.7 -Total Square (Area) (cm) 16.50 20.72 29.61 -Tunneling No No No -Undermining/Tunneling No No No -Circular Undermining No No No -Wound/Ulcer Outcome Not Healed Not Healed Not Healed -Ulcer Cleansing Rinsed/ Rinsed/ Rinsed/ Irrigated with Irrigated with Irrigated with Saline Saline Saline -Foul Odor after Cleansing No No No -Bioengineered Tissue No No No -Bleeding Controlled with Pressure Pressure Pressure -Treatment Response Procedure Procedure Procedure Tolerated Well Tolerated Well Tolerated Well -Offloading No -Debridement - Subq, 1st 20sq cm No No Yes -Debridement, SubQ, ea addt'l 20sq cm 3 or part thereof #3- R CALF CLUSTER -Time 10:43 11:02 14:39 -Correct Patient Yes Yes Yes -Correct Side, Site, Position Yes Yes Yes -Correct Procedure Yes Yes Yes -Procedure Performed Yes Yes Yes -Type of Procedure Debridement Debridement Debridement -Clinical Debridement Subcutaneous Subcutaneous Subcutaneous -Tissue Removed Subcutaneous Subcutaneous Subcutaneous -Post Debridement (cm) - Length 4.5 4.5 4.0 -Post Debridement (cm) - Width 3.6 3.6 4.2 -Post Debridement (cm) - Depth 0.1 0.1 0.1 -Total Square (Post) (cm) 16.20 16.20 16.80 -Area of Debridement (cm) - Length 4.5 4.5 4.0 -Area of Debridement (cm) - Width 3.6 3.6 4.2 -Total Square (Area) (cm) 16.20 16.20 16.80 -Tunneling No No No -Undermining/Tunneling No No No -Circular Undermining No No No -Wound/Ulcer Outcome Not Healed Not Healed Not Healed -Ulcer Cleansing Rinsed/ Rinsed/ Rinsed/ Irrigated with Irrigated with Irrigated with Saline Saline Saline -Foul Odor after Cleansing No No No -Bioengineered Tissue No No No -Bleeding Controlled with Pressure Pressure Pressure -Treatment Response Procedure Procedure Procedure Tolerated Well Tolerated Well Tolerated Well -Offloading No -Debridement - Subq, 1st 20sq cm No No No Pain Scale: 0-10 Numeric Is Patient Pain Free? Yes Yes Yes 10/18/22 11:06 Wound Center Nurse 2 #4- L LAT SANCHEZ CLUSTER -Time -Correct Patient -Correct Side, Site, Position -Correct Procedure -Procedure Performed -Type of Procedure -Clinical Debridement -Tissue Removed -Post Debridement (cm) - Length -Post Debridement (cm) - Width -Post Debridement (cm) - Depth -Total Square (Post) (cm) -Area of Debridement (cm) - Length -Area of Debridement (cm) - Width -Total Square (Area) (cm) -Tunneling -Undermining/Tunneling -Circular Undermining -Wound/Ulcer Outcome -Ulcer Cleansing -Foul Odor after Cleansing -Bioengineered Tissue -Bleeding Controlled with -Treatment Response -Debridement - Subq, 1st 20sq cm #2- R MED CALF -Time 11:10 -Correct Patient -Correct Side, Site, Position -Correct Procedure -Procedure Performed -Type of Procedure -Clinical Debridement -Tissue Removed -Post Debridement (cm) - Length -Post Debridement (cm) - Width -Post Debridement (cm) - Depth -Total Square (Post) (cm) -Area of Debridement (cm) - Length -Area of Debridement (cm) - Width -Total Square (Area) (cm) -Tunneling No -Undermining/Tunneling No -Circular Undermining No -Wound/Ulcer Outcome Converted -Ulcer Cleansing -Foul Odor after Cleansing -Bioengineered Tissue -Bleeding Controlled with -Treatment Response -Offloading -Debridement - Subq, 1st 20sq cm -Debridement, SubQ, ea addt'l 20sq cm or part thereof #1- R SANCHEZ -Procedure Performed -Wound/Ulcer Outcome #5- L LAT POST LE -Time 11:09 -Correct Patient Yes -Correct Side, Site, Position Yes -Correct Procedure Yes -Procedure Performed Yes -Type of Procedure Debridement -Clinical Debridement Subcutaneous -Tissue Removed Subcutaneous -Post Debridement (cm) - Length 4.0 -Post Debridement (cm) - Width 4.0 -Post Debridement (cm) - Depth 0.1 -Total Square (Post) (cm) 16.00 -Area of Debridement (cm) - Length 4.0 -Area of Debridement (cm) - Width 4.0 -Total Square (Area) (cm) 16.00 -Tunneling No -Undermining/Tunneling No -Circular Undermining No -Wound/Ulcer Outcome Not Healed -Ulcer Cleansing Rinsed/ Irrigated with Saline -Foul Odor after Cleansing No -Bioengineered Tissue No -Bleeding Controlled with Pressure -Treatment Response Procedure Tolerated Well -Offloading No -Debridement - Subq, 1st 20sq cm Yes -Debridement, SubQ, ea addt'l 20sq cm 2 or part thereof #3- R CALF CLUSTER -Time 11:09 -Correct Patient Yes -Correct Side, Site, Position Yes -Correct Procedure Yes -Procedure Performed Yes -Type of Procedure Debridement -Clinical Debridement Subcutaneous -Tissue Removed Subcutaneous -Post Debridement (cm) - Length 4.0 -Post Debridement (cm) - Width 6.5 -Post Debridement (cm) - Depth 0.2 -Total Square (Post) (cm) 26.00 -Area of Debridement (cm) - Length 4.0 -Area of Debridement (cm) - Width 6.5 -Total Square (Area) (cm) 26.00 -Tunneling No -Undermining/Tunneling No -Circular Undermining No -Wound/Ulcer Outcome Not Healed -Ulcer Cleansing Rinsed/ Irrigated with Saline -Foul Odor after Cleansing No -Bioengineered Tissue No -Bleeding Controlled with Pressure -Treatment Response -Offloading No -Debridement - Subq, 1st 20sq cm No Pain Scale: 0-10 Numeric Is Patient Pain Free? Yes WC - Nurse 3 - General Ulcer D/C NN Start: 09/21/22 13:51 Freq: Status: Active Protocol: Activity Type Activity Date Activity User E-sign Co-sign Detail Recorded Client Recorded Date Recorded By Document 09/21/22 13:51 [facility] [id number] 09/21/22 13:55 [facility] Document 09/29/22 11:02 [facility] [id number] 09/29/22 11:04 [facility] Document 10/06/22 12:10 [place] [id number] 10/06/22 12:14 [place] Document 10/11/22 15:01 RB [id number] 10/11/22 15:03 RB Document 10/18/22 11:38 PL [id number] 10/18/22 11:40 PL 09/21/22 09/29/22 10/06/22 13:51 11:02 12:10 Vital Signs Temperature (97.8 F-99.1 F) 97.4 F L Temperature Source Temporal Pulse Rate (60-100) 79 Pulse Location Monitor Respiratory Rate (12-18) 16 Respiratory rate source Observation Oxygen Delivery Method Room Air Blood Pressure (90/60-120/80) 166/51 H Blood Pressure Mean 89 Source Monitor Position Sitting Blood Pressure Location Left Arm Pain Scale: 0-10 Numeric Is Patient Pain Free? Yes Yes Yes bilateral legs -Description -Intensity -Pain Behavior -Pain Aggravating Factors -Alleviating Factors/Interventions -Effectiveness of Alleviating Factor/ Intervention Wound Care Center Nurse 3 #4- L LAT SANCHEZ CLUSTER -Ulcer Cleansing Rinsed/ Rinsed/ Irrigated with Irrigated with Saline Saline -Foul Odor after Cleansing No No -Primary Dressing Applied Fibracol Plus Fibracol Plus 4x4 4x4,Optilok 8x12 -Other Dressing ABD per jf rn -Primary Dressing Covered/Secured with Dry Gauze & Dry Gauze & Roll Gauze, Roll Gauze, Secured with Secured with Tape Tape -Fibracol Plus 4x4 0 0 -Optilok 8x12 0 #2- R MED CALF -Ulcer Cleansing Rinsed/ Rinsed/ Rinsed/ Irrigated with Irrigated with Irrigated with Saline Saline Saline -Foul Odor after Cleansing No No No -Negative Pressure Wound Therapy N/A -Primary Dressing Applied Fibracol Plus 4x4,Optilok 8x12 -Other Dressing HYDROGEL per jf rn hydrogel -Primary Dressing Covered/Secured with Dry Gauze & Dry Gauze & Dry Gauze & Roll Gauze, Roll Gauze, Roll Gauze, Secured with Secured with Secured with Tape Tape Tape -Other Covering ABD -Fibracol Plus 4x4 0 -Optilok 8x12 0 #1- R SANCHEZ -Ulcer Cleansing Rinsed/ Rinsed/ Irrigated with Irrigated with Saline Saline -Foul Odor after Cleansing No No -Primary Dressing Applied Fibracol Plus Fibracol Plus 4x4 4x4,Optilok 8x12 -Other Dressing ABD -Primary Dressing Covered/Secured with Dry Gauze & Dry Gauze & Roll Gauze, Roll Gauze, Secured with Secured with Tape Tape -Other Covering per jf rn -Fibracol Plus 4x4 0 0 -Optilok 8x12 0 #5- L LAT POST LE -Ulcer Cleansing Soap and Water Rinsed/ Rinsed/ Irrigated with Irrigated with Saline Saline -Foul Odor after Cleansing No No No -Negative Pressure Wound Therapy N/A -Primary Dressing Applied Fibracol Plus Fibracol Plus Optilok 6.5x10 4x4 4x4,Optilok 8x12 -Other Dressing ABD per jf rn hydrogel -Primary Dressing Covered/Secured with Dry Gauze & Dry Gauze & Dry Gauze & Roll Gauze, Roll Gauze, Roll Gauze, Secured with Secured with Secured with Tape Tape Tape -Aquacel Extra -Fibracol Plus 4x4 1 1 -Optilok 6.5x10 1 -Optilok 8x12 2 #3- R CALF CLUSTER -Ulcer Cleansing Rinsed/ Rinsed/ Rinsed/ Irrigated with Irrigated with Irrigated with Saline Saline Saline -Foul Odor after Cleansing No No No -Negative Pressure Wound Therapy N/A -Primary Dressing Applied Fibracol Plus Fibracol Plus Optilok 6.5x10 4x4 4x4,Optilok 8x12 -Other Dressing ABD per jf rn hydrogel -Primary Dressing Covered/Secured with Dry Gauze & Dry Gauze & Dry Gauze & Roll Gauze, Roll Gauze, Roll Gauze, Secured with Secured with Secured with Tape Tape Tape -Fibracol Plus 4x4 0 0 -Optilok 6.5x10 1 -Optilok 8x12 0 Right -Tubular Bandage -Size of Tubigrip Used -Size D ($) Left -Tubular Bandage -Size of Tubigrip Used -Size D ($) BLE -Lotion applied to leg before No compression wrap -Tubular Bandage Single Layer Single Layer Single Layer -Size of Tubigrip Used Size E Size E Size E -Size D ($) -Size E ($) 4 2 1 -Other SENT EXTRA Treatment Response Procedure Procedure Tolerated Well Tolerated Well WC - Visit Discharge Discharge Condition Stable Stable Stable Ambulatory Status Ambulatory, Ambulatory, Ambulatory, Walker Walker Walker Transportation [place] TRANSPORT al transport Medication Reconcilliation completed & Yes provided to patient/care provider Clinical Summary of Care Provided Yes Other [facility]IV[facility] assisted living 10/11/22 10/18/22 15:01 11:38 Vital Signs Temperature (97.8 F-99.1 F) Temperature Source Pulse Rate (60-100) Pulse Location Respiratory Rate (12-18) Respiratory rate source Oxygen Delivery Method Blood Pressure (90/60-120/80) Blood Pressure Mean Source Position Blood Pressure Location Pain Scale: 0-10 Numeric Is Patient Pain Free? No Yes bilateral legs -Description Aching -Intensity 8 -Pain Behavior Withdrawal from Touch -Pain Aggravating Factors Changing Position -Alleviating Factors/Interventions Medication -Effectiveness of Alleviating Factor/ Moderately Intervention effective Wound Care Center Nurse 3 #4- L LAT SANCHEZ CLUSTER -Ulcer Cleansing -Foul Odor after Cleansing -Primary Dressing Applied -Other Dressing -Primary Dressing Covered/Secured with -Fibracol Plus 4x4 -Optilok 8x12 #2- R MED CALF -Ulcer Cleansing -Foul Odor after Cleansing -Negative Pressure Wound Therapy -Primary Dressing Applied -Other Dressing -Primary Dressing Covered/Secured with Dry Gauze,Dry Gauze & Roll Gauze,Secured with Tape -Other Covering -Fibracol Plus 4x4 -Optilok 8x12 #1- R SANCHEZ -Ulcer Cleansing -Foul Odor after Cleansing -Primary Dressing Applied -Other Dressing -Primary Dressing Covered/Secured with -Other Covering -Fibracol Plus 4x4 -Optilok 8x12 #5- L LAT POST LE -Ulcer Cleansing Rinsed/ Irrigated with Saline -Foul Odor after Cleansing No -Negative Pressure Wound Therapy -Primary Dressing Applied Aquacel Extra, Aquacel Extra Optilok 6.5x10 -Other Dressing ABD, Conform -Primary Dressing Covered/Secured with Dry Gauze,Dry Secured with Gauze & Roll Tape Gauze,Secured with Tape -Aquacel Extra 2 1 -Fibracol Plus 4x4 -Optilok 6.5x10 2 -Optilok 8x12 #3- R CALF CLUSTER -Ulcer Cleansing Rinsed/ Irrigated with Saline -Foul Odor after Cleansing No -Negative Pressure Wound Therapy -Primary Dressing Applied -Other Dressing aquacel extra, Aquacel Xtra, super absorbant ABD, COnform , kerlix -Primary Dressing Covered/Secured with Secured with Tape -Fibracol Plus 4x4 -Optilok 6.5x10 -Optilok 8x12 Right -Tubular Bandage Single Layer -Size of Tubigrip Used Size D -Size D ($) 1 Left -Tubular Bandage Single Layer -Size of Tubigrip Used Size D -Size D ($) 1 BLE -Lotion applied to leg before compression wrap -Tubular Bandage Single Layer -Size of Tubigrip Used Size D -Size D ($) 2 -Size E ($) -Other Treatment Response Procedure Tolerated Well WC - Visit Discharge Discharge Condition Stable Stable Ambulatory Status Ambulatory, Walker Walker Transportation Private Auto Medication Reconcilliation completed & No provided to patient/care provider Clinical Summary of Care Provided Yes Other Additional Wound Wound debrided: Left lateral lower leg ulcer Type of Debridement: Excisional debridement Anesthesia Used: 5% Lidocaine Gel Depth: Down to and including healthy tissue Percentage of wound debrided: 100 Instrument Used: 7mm curette Tissue Removed: Slough fibrin Severity: Limited To Skin Breakdown Amount of bleeding with debridement: Mild Bleeding Controlled with: Compression and gauze Patient tolerated procedure: Patient tolerated procedure well Assessment/Plan Assessment/Plan (1) Non-pressure chronic ulcer of right calf with fat layer exposed: CODE(S): L97.212 - Non-pressure chronic ulcer of right calf with fat layer exposed (2) Non-pressure chronic ulcer of right calf limited to breakdown of skin: CODE(S): L97.211 - Non-pressure chronic ulcer of right calf limited to breakdown of skin (3) Non-pressure chronic ulcer of left calf limited to breakdown of skin: CODE(S): L97.221 - Non-pressure chronic ulcer of left calf limited to breakdown of skin PLAN: Plan Courtesy visit still with significant bilateral lower extremity edema. Will increase compression of tubigrips, will see how patient tolerates. Continue to elevate legs as much as possible whenever resting/sleeping. Continue to struggle to control moisture of the wounds. Continue using Aquacel Extra to all wounds for increased absorbency, continue super absorber over top. I would prefer twice daily dressing changes, but patient is in [place] and seems only once daily is possible at this time, will try to discuss with facility. Wound cultures were positive for Klebsiella, Proteus, and Staph. Prescribed Keflex 500mg q6H x 7 days and Doxycycline 100mg BID x 10 days based upon sensitivity report. I encouraged her to increase protein and reduce sugar/carbs in her diet to support healing. Patient will return to clinic next week to follow with another wound care provider while I am out.
== END 2022-10-18 23:59 | disposition home or self-care (01) ==
LOC: WC 10:00
PROVIDERS: PCP Family Medicine; Referring Provider Family Medicine; Visit Provider Physician Assistant
DX: L97.211 Non-pressure chronic ulcer of right calf limited to breakdown of skin (principal); L97.221 Non-pressure chronic ulcer of left calf limited to breakdown of skin; R60.0 Localized edema
CPT/HCPCS: 11042; 11045; 87070; 87075; 87077; 87186; 87205; 99211; G0463

== ENCOUNTER 2022-11-08 20:13 | Emergency (ER) | payer MEDICARE, SELFPAY ==
[2022-11-08 20:14] VITALS: BP 138/94; PULSE 72; RESP 18; TEMP 37.2; O2SAT 96; BMI 33.2
--- NOTE | 2022-11-08 20:20 | CT_ITS ---
STUDY: CT BRAIN WITHOUT CONTRAST REASON FOR EXAM: Female, 81 years old. trauma RADIATION DOSAGE (If Supplied By Facility): CTDIvol = ( 44.99 ) mGy, DLP = ( 745.49 ) mGycm TECHNIQUE: Transaxial CT imaging of the brain was performed without administration of intravenous contrast material. Individualized dose optimization techniques were used for this CT. COMPARISON: No relevant priors. FINDINGS: Normal soft tissue structures. Normal calvarium. Nasal fracture incompletely imaged. There is mild cerebral atrophy with widening of the extra-axial spaces and ventricular dilatation. Normal white matter tracts of the cerebral hemispheres. Normal basal ganglia and thalami. Normal brainstem. Normal cerebellum. Intracranial atherosclerosis. There is no intracranial hemorrhage. There are no findings of an acute ischemic infarction. Curvilinear densities right orbit requires clinical correlation. Normal visualized paranasal sinuses. CT/Brain/Head without Contrast IMPRESSION: Nasal bone fracture. Curvilinear radiodensities right lobe require clinical correlation. No acute intracranial injury. Electronically Signed: Donnie Mendoza MD at 21:28 EDT ,
--- NOTE | 2022-11-08 20:20 | CT_ITS ---
STUDY: CT CERVICAL SPINE WITHOUT CONTRAST REASON FOR EXAM: Female, 81 years old. trauma RADIATION DOSAGE (If Supplied By Facility): CTDIvol = ( 17.99 ) mGy, DLP = ( 374.08 ) mGycm TECHNIQUE: High resolution transaxial imaging was performed without contrast material. Sagittal and coronal images were reconstructed. Individualized dose optimization techniques were used for this CT. COMPARISON: None FINDINGS: Normal craniovertebral junction. Normal anterior atlantoaxial articulation. Normal odontoid process. There is reversal of the normal cervical lordosis. Slight anterior subluxation of C3-4. Normal vertebral bodies and posterior osseous elements. C2-3: Normal endplates. Normal disc height and morphology. Normal central canal and intervertebral neuroforamina. C3-4: Spondylitic endplates. Narrowed disc height and morphology. Normal central canal and narrowed intervertebral neuroforamina. C4-5: Spondylitic endplates. Narrowed disc height and morphology. Normal central canal and narrowed intervertebral neuroforamina. C5-6: Spondylitic endplates. Narrowed disc height and morphology. Normal central canal and narrowed intervertebral neuroforamina. C6-7: Spondylitic endplates. Narrowed disc height and morphology. Normal central canal and narrowed intervertebral neuroforamina. C7-T1: Normal endplates. Normal disc height and morphology. Normal central canal and intervertebral neuroforamina. Normal visualized soft tissue structures. CT/Spine Cervical without Contras IMPRESSION: No fracture. Slight anterior subluxation C3-4 probably degenerative. Electronically Signed: Donnie Mendoza MD at 22:11 EDT ,
--- NOTE | 2022-11-08 20:20 | CT_ITS ---
STUDY: CT FACIAL BONES WITHOUT CONTRAST REASON FOR EXAM: Female, 81 years old. trauma RADIATION DOSAGE (If Supplied By Facility): CTDIvol = ( 29.38 ) mGy, DLP = ( 540.11 ) mGycm TECHNIQUE: The patient was scanned in a multi detector CT scanner. Sagittal and coronal images were reconstructed. Individualized dose optimization techniques were used for this CT. COMPARISON: None. FINDINGS: Curvilinear radiodensity right orbital globe. Normal soft tissue structures. nasal bone fractures including the anterior maxillary spine. Remaining facial bones are deviated to the left. Normal orbital best and orbital contents. Normal nasal bones and anterior nasal spine. Normal facial bones. There is no demonstrated fracture. Normal visualized paranasal sinuses. CT/Sinus/Facial Bone IMPRESSION: Displaced nasal bone fractures Electronically Signed: Donnie Mendoza MD at 21:38 EDT ,
--- NOTE | 2022-11-08 20:21 | EDS_ITS ---
HPI History of Present Illness Chief Complaint: Fall Detail of Chief Complaint: Fall with head injury Informant: patient and EMS Narrative Narrative: Patient presents the emergency department from [facility] via EMS after sustaining a fall. Patient states that she was walking to get her walker when she turned suddenly and lost her balance and fell. Patient struck the ground with her face. She denies loss of consciousness. She is not on blood thinners. They did not let her ambulate afterwards. She does have history of some dementia. Denies chest pain or abdominal pain. [facility] Medical History (Updated 11/08/22 @ 22:[address] Michael Gonsales, DO) Cellulitis and abscess of right leg CLL (chronic lymphocytic leukemia) Cognitive communication disorder Dementia Dementia with psychotic disturbance Glaucoma HTN (hypertension) Muscle weakness Obesity Home Medications acetaminophen 325 mg tablet 650 mg PO Q6H PRN Pain 09/15/22 [History Last Taken Unknown] bisacodyl 10 mg rectal suppository 10 mg MI DAILY PRN Constipation 09/15/22 [History Last Taken Unknown] furosemide 20 mg tablet 40 mg PO DAILY 09/15/22 [History Last Taken Unknown] hydroxyzine HCl 25 mg tablet 25 mg PO TID PRN ITCHING/ANXIETY 09/15/22 [History Last Taken Unknown] indapamide 2.5 mg tablet 2.5 mg PO DAILY 09/15/22 [History Last Taken Unknown] latanoprost 0.005 % eye drops 1 drp EACH EYE DAILY 09/15/22 [History Last Taken Unknown] nystatin 100,000 unit/gram topical powder 1 applic topical BID PRN Rash 09/15/22 [History Last Taken Unknown] ondansetron 4 mg disintegrating tablet 4 mg PO Q6H PRN Nausea 09/15/22 [History Last Taken Unknown] potassium chloride 20 mEq tablet,extended release 20 meq PO DAILY 09/15/22 [History Last Taken Unknown] sodium phosphates 19 gram-7 gram/118 mL enema (Fleet Enema) 118 ml MI DAILY PRN Constipation 09/15/22 [History Last Taken Unknown] venlafaxine 37.5 mg tablet 75 mg PO DAILY 09/15/22 [History Last Taken Unknown] Allergy/AdvReac Type Severity Reaction Status Date / Time timolol Allergy Other Verified 11/08/22 20:35 Social History Smoking Status: Never smoker ROS ROS ED Review of Systems ROS Unobtainable: other Constitutional Constitutional ED: Reports lethargy; Denies chills, fever(s), sweats or weight loss Eyes Eyes: Denies blurry vision, change in vision or diplopia ENT ENT ED: Reports other Details: Nose pain, bleeding from right side of the nose ; Denies rhinorrhea or sore throat Cardiovascular Cardiovascular: Denies chest pain, orthopnea or racing heartbeat Respiratory/Chest Respiratory/Chest: Denies cough, dyspnea, dyspnea on exertion, orthopnea or sputum Gastrointestinal Gastrointestinal: Denies abdominal pain, diarrhea, nausea or vomiting Genitourinary Genitourinary ED: Denies dysuria, hematuria or urinary frequency Musculoskeletal Musculoskeletal: Reports other Details: Right shoulder pain and left hip pain ; Denies arthralgias, back pain, myalgias or neck pain Integumentary Denies abscess, Abrasions or rash Neurologic Neurologic: Denies headache(s) or weakness Psychiatric Psychiatric: Denies anxiety, depression or suicidal thoughts Endocrine Endocrinology: Denies polydipsia, polyphagia or polyuria Hematologic/Lymphatic Hematologic/Lymphatic: Denies easy bleeding, easy bruising or lymphadenopathy Allergic/Immunologic Allergic/Immunologic ED: Denies mouth swelling, tongue swelling or urticaria EXAM Physical Exam Const Vital Signs: 11/08/22 20:14 11/08/22 20:35 Temperature 99 F Temperature Source Temporal Pulse Rate 72 Respiratory Rate 18 Respiratory Effort Normal Non-Labored Respiratory Depth Normal Respiratory Pattern Normal Blood Pressure 138/94 H Blood Pressure Mean 108 Pulse Ox 96 Oxygen Delivery Method Room Air Room Air Positive well nourished and well developed General Appearance ED: well developed and NAD HEENT Reports TM's clear and moist mucous membranes HEENT Narrative: Patient with tenderness palpation over the nasal bone with superficial abrasion. Patient with blood from right side of nose no septal hematoma noted however. normocephalic; Negative for trauma or tenderness Tympanic Membrane ED: Yes TM's clear Eyes PERRL and EOMs intact bilaterally General Eye ED: Negative for pale conjunctiva or scleral icterus Neck no lymphadenopathy, supple and no JVD Neck Narrative: Mild diffuse C-spine tenderness on palpation. No bony step-offs. General: Negative for tenderness Chest Wall inspection of chest normal and palpation of chest normal Chest: Negative for tenderness Resp normal respiratory effort and clear to auscultation bilaterally Effort and Inspection: Negative for respiratory distress or pain with movement Auscultation: Negative for rhonchi, wheezes or diminished lung sounds Cardio regular rate, regular rhythm, S1 normal heart sound, S2 normal heart sound and no murmurs Peripheral Pulses: pulses 2+ throughout GI normal to inspection, nondistended, normoactive bowel sounds, soft to palpation, non-tender, non-distended and no masses Back/Spine no CVA tenderness and no thoracic nor lumbar tenderness Extremity Extremity Narrative: Superficial abrasion and mild tenderness over the glenohumeral joint right shoulder. Good range of motion. No sulcus sign. Neurovascular intact distally. Left hip-mild tenderness over the left hip on exam. No shortening or external rotation. Neurovascular intact distally. Mild pain with logrolling General Extremety ED: Negative for edema General Extremity: Negative for edema Neuro oriented x3, CN's II-XII intact bilaterally, no sensory deficits noted and gait normal Sensorium / Orientation: awake, alert, oriented to person, oriented to place and oriented to time Motor Exam: strength 5/5 throughout and strength abnormal Psych mental status grossly normal Skin no rashes or lesions noted and no wounds MDM MDM MDM Narrative Medical decision making narrative: Presents with a mechanical fall. Injury to her face. She had a CT scan of the brain without contrast that was unremarkable. She had a CT C-spine that showed no fractures but did show degenerative changes. Patient had a CT facial bones that showed a displaced nasal bone fracture however no other fractures noted. Patient also had x-rays of the right shoulder and left hip which showed no fractures but did show degenerative changes. This point patient will be discharged to home. Advised to follow-up with ENT within the next 5 to 7 days. Radiography Diagnostic Testing: Clinical Impression(s) from Imaging Studies Brain CT 11/08/22 20:20 IMPRESSION: Nasal bone fracture. Curvilinear radiodensities right lobe require clinical correlation. No acute intracranial injury. Electronically Signed: Donnie Mendoza MD at 21:28 EDT Reading Location ID and State: [address] [place] [address] , Service support , Cervical Spine CT 11/08/22 20:20 IMPRESSION: No fracture. Slight anterior subluxation C3-4 probably degenerative. Electronically Signed: Donnie Mendoza MD at 22:11 EDT , Facial/Sinus 11/08/22 20:20 IMPRESSION: Displaced nasal bone fractures Electronically Signed: Donnie Mendoza MD at 21:38 EDT , Hip/Pelvis X-Ray 11/08/22 20:35 IMPRESSION: No fracture noted Electronically Signed: Donnie Mendoza MD at 21:42 EDT , Shoulder X-Ray 11/08/22 20:35 IMPRESSION: Severe DJD. Probable impingement syndrome. Electronically Signed: Donnie Mendoza MD at 21:43 EDT , 2 view x-rays of the right shoulder obtained interpreted by myself as degenerative changes without evidence of fracture or dislocation. Radiology in agreement. Three-view x-rays of the left hip and pelvis obtained interpreted by myself as no acute fractures. Radiology in agreement. Discharge Plan Triage Chief Complaint: Fall ED Provider: Michael Gonsales Dx/Rx/DC Orders Clinical Impression: Fall, Fracture closed, nasal bone, Closed head injury, Contusion of right shoulder Instructions: ED Mechanical Fall, ED Nose Fracture, with X-Ray, ED Head Injury (Adult) Prescriptions: No Action latanoprost 0.005 % Drops 1 drp EACH EYE DAILY acetaminophen 325 mg Tablet 650 mg PO Q6H PRN (Reason: Pain) indapamide 2.5 mg Tablet 2.5 mg PO DAILY bisacodyl 10 mg Suppository 10 mg MI DAILY PRN (Reason: Constipation) venlafaxine 37.5 mg Tablet 75 mg PO DAILY Fleet Enema 19-7 gram/118 mL Enema 118 ml MI DAILY PRN (Reason: Constipation) hydroxyzine HCl 25 mg Tablet 25 mg PO TID PRN (Reason: ITCHING/ANXIETY) furosemide 20 mg Tablet 40 mg PO DAILY nystatin 100,000 unit/gram Powder 1 applic TOPICAL BID PRN (Reason: Rash) ondansetron 4 mg Tablet,Disintegrating 4 mg PO Q6H PRN (Reason: Nausea) potassium chloride 20 mEq Tablet Extended Release 20 meq PO DAILY Primary Care Provider: Christina Modi Referrals: Christina Modi MD [Primary Care Provider] - Lanre Alicia MD [Med Staff - Active Staff] - 5-7 Days Disposition Disposition: Home, Self Care
--- NOTE | 2022-11-08 20:35 | RAD_ITS ---
STUDY: X-RAY - PELVIS AND LEFT HIP REASON FOR EXAM: Female, 81 years old. fall TECHNIQUE: 3 views of the pelvis and hip. COMPARISON: None. FINDINGS: There is a non-specific bowel gas pattern. Normal visualized soft tissue structures. Degenerative changes lumbar spine. Normal bilateral iliac wings, sacroiliac joints and visualized sacrum. Normal bilateral superior and inferior pubic rami. Normal pubic symphysis. Normal bilateral ischial tuberosities. Moderate spurring and joint space narrowing bilateral hip joints. Dedicated views of the left hip are negative for fracture. RAD/HIP, UNI W/ Pelvis 2-3 Views IMPRESSION: No fracture noted Electronically Signed: Donnie Mendoza MD at 21:42 EDT ,
--- NOTE | 2022-11-08 20:35 | RAD_ITS ---
STUDY: X-RAY - RIGHT SHOULDER REASON FOR EXAM: Female, 81 years old. fall TECHNIQUE: 2 view(s) of the shoulder. COMPARISON: None. FINDINGS: There is severe degenerative arthrosis of the glenohumeral articulation. Normal acromioclavicular joint. Normal acromion. Cephalad displacement of the humeral head. Normal humeral head and visualized proximal humerus. The soft tissue structures are unremarkable. Normal visualized pulmonary apex. RAD/Shoulder min 2 Views IMPRESSION: Severe DJD. Probable impingement syndrome. Electronically Signed: Donnie Mendoza MD at 21:43 EDT ,
[2022-11-08 22:38] VITALS: BP 124/71; PULSE 73; RESP 16; O2SAT 95
--- NOTE | 2022-11-08 22:38 | ED.RN ---
Nurse to nurse called to Elli diaz Bimble.
== END 2022-11-08 23:23 | disposition home or self-care (01) ==
PROVIDERS: Emergency Provider Emergency Medicine; PCP Family Medicine; Visit Provider Emergency Medicine
DX: S02.2XXA Fracture of nasal bones, initial encounter for closed fracture (principal); I10 Essential (primary) hypertension; S40.011A Contusion of right shoulder, initial encounter; H40.9 Unspecified glaucoma; S09.8XXA Other specified injuries of head, initial encounter; W18.39XA Other fall on same level, initial encounter; Y92.89 Other specified places as the place of occurrence of the external cause
CPT/HCPCS: 70450; 70486; 72125; 73030; 73502; 99284

== ENCOUNTER 2022-11-17 11:15 | Outpatient (RCR) | payer MEDICARE, SELFPAY ==
[2022-10-19 00:40] VITALS: BP 149/68; PULSE 91; RESP 16; TEMP 36.2; BMI 38.2
[2022-10-27 13:14] VITALS: BP 153/70; PULSE 84; RESP 16; TEMP 35.9; BMI 38.2
--- NOTE | 2022-10-27 13:55 | PCM.WC.PN ---
History of Present Illness Date of Service: 10/27/22 Chief Complaint: BLE wounds History of Wound: Patient is an 81-year-old female who resides at [facility]. She is referred by facility for evaluation and management of bilateral lower extremity wounds which have been ongoing for several weeks. Patient is unaccompanied to her appointment today. She does appear to have some level of dementia and is somewhat confused at times so is a rather poor historian. Referral paperwork indicates that patient had lower extremity cellulitis about a month ago which was treated with p.o. antibiotics. Current wound treatment consists of cleansing with wound cleanser covering with Telfa and wrapping with Kerlix daily. She reports a lot of pain associated with the wounds, but denies this pain being present prior to the wounds appearing. Patient states she is not diabetic and by review of her medication list this appears to be accurate. She states she does not smoke. She reports that she has never had wounds like this in the past. She is ambulatory and denies claudication type symptoms. She does have bilateral lower extremity edema with some fluid-filled blisters and serous fluid draining from wounds. She tells me that she does not wear compression. She typically sleeps in a chair. Subjective Subjective Her tubigrips were cut to stop less than long term up her calf, she is not sure why. She has completed antibiotics. She states she could be better about elevating her legs throughout the day. She still sleeps in a chair. No N/V, F/C, new or worsening pain in lower extremities. Objective Data Objective Data Vital Signs: Vital Signs Temp Pulse Resp BP 96.7 F L 84 16 153/70 H 10/27/22 13:14 10/27/22 13:14 10/27/22 13:14 10/27/22 13:14 Weight: 196 lb Body Mass Index (BMI) 38.2 Charges/Coding Procedures Integumentary [id number]: [id number] Otilia subq tissue 20 sq cm/< Physical Exam Const alert, oriented x3 and no apparent distress Orientation / Consciousness: confused HEENT normocephalic, head/scalp atraumatic, hearing grossly normal bilaterally, external ears normal and external nose normal Eyes EOMs intact bilaterally General Eye: normal appearance of both eyes Neck General: normal visual inspection and trachea midline Resp normal respiratory effort, normal air movement, no retractions and no use of accessory muscles Effort and Inspection: able to speak in complete sentences; Negative for stridor or audible wheezes Cardio Rate: regular rate Rhythm: regular rhythm Extremity Extremity Narrative: Bilateral lower extremity edema with some associated fluid-filled blisters. No particularly prominent varicose veins. Pulses diminished to palpation with monophasic signals. Appropriate color and normal capillary refill. Skin Wounds: wounds noted Wound Narrative: Right posterior calf cluster of superficial wounds with pink granulation tissue and minimal slough. Right posteromedial calf wound still with significant adherent slough but areas of pink granulation tissue noted, no necrotic tissue or eschar. Left posterior calf wound, superficial with pink granulation tissue. Less drainage overall compared to prior. Neuro oriented x3, CN's II-XII intact bilaterally, moves all extremities and no focal motor deficits Psych Appearance: grossly normal Attitude: calm Debridement Note Debridement Note Wound debrided: Left posterolateral lower leg Laterality: Left Type of Debridement: Excisional debridement Anesthesia Used: 5% Lidocaine Gel Depth: Down to and including healthy tissue Percentage of wound debrided: 100 Instrument Used: 5mm curette Tissue Removed: Devitalized tissue, slough Severity: Limited To Skin Breakdown Amount of bleeding with debridement: Mild Bleeding Controlled with: Pressure Patient tolerated procedure: Patient tolerated procedure well Post-Debridement Measurements and Additional Note: Post-Debridement Measurements/Treatment - Nurse 1 - General Ulcer Assessment Start: 10/27/22 13:14 Freq: Status: Active Protocol: [email or web address] Activity Type Activity Date Activity User E-sign Co-sign Detail Recorded Client Recorded Date Recorded By Document 10/27/22 13:14 [id number] 10/27/22 13:25 10/27/22 13:14 - Today's Visit Information Type of service Follow-up Visit (Physician/[employer]OR ) Arrival Mode Walker Safety Precautions Fall Prevention Height and Weight Body Mass Index (BMI) 38.2 BMI Classification Obese Vital Signs Temperature (97.8 F-99.1 F) 96.7 F L Temperature Source Temporal Pulse Rate (60-100) 84 Pulse Location Monitor Respiratory Rate (12-18) 16 Blood Pressure (90/60-120/80) 153/70 H Blood Pressure Mean (mm Hg) 97 Source Monitor Position Semi-Fowlers Blood Pressure Location Left Arm History Since Last Visit- (Skip if this is Patient's initial visit) Have you changed medications since your No last visit? Any new allergies or adverse reactions No Had a fall/change in ADL's that may No increase risk of falls Signs or symptoms of abuse and/or No neglect since last visit Have you been in the hospital since your No last visit? Has dressing in place as prescribed Yes Has compression in place as prescribed No Has offloadiing in place as prescribed N/A Experienced any changes in pain level or No management Left Footwear Regular Shoe Right Footwear Regular Shoe Pain Scale: 0-10 Numeric Is Patient Pain Free? Yes WC - Nurse 1 - General Ulcer Measurement Start: 10/27/22 13:14 Freq: Status: Active Protocol: Activity Type Activity Date Activity User E-sign Co-sign Detail Recorded Client Recorded Date Recorded By Document 10/27/22 13:14 [id number] 10/27/22 13:25 KW 10/27/22 13:14 Wound Center Nurse 1 #4- L LAT SANCHEZ CLUSTER -Combined with other wound No -Current Size (cm) - Length 0 -Current Size (cm) - Width 0 -Current Size (cm) - Depth 0 -Total Square Cm 0 -Date of Last Picture (Recall this 10/27/22 field) -Photo Taken Yes -Epithelialization Large 67-100% -Tunneling No -Undermining/Tunneling No -Circular Undermining No -Granulation Amt Large (67-100%) -Granulation Quality Red -Slough/Fibrin Yes -Necrotic Tissue Type Adherent Slough -Structure Exposed N/A -Texture (Maryann-wound Skin Appearance) Assessed -Moisture (Maryann-wound Skin Appearance) Assessed,Dry/ Scaly -Color (Maryann-wound Skin Appearance) Assessed, Erythema -Ulcer Cleansing Soap and Water -Anesthetic Used 5% Lidocaine Gel #5- L LAT POST LE -Combined with other wound No -Current Size (cm) - Length 3.4 -Current Size (cm) - Width 3.0 -Current Size (cm) - Depth 0.1 -Total Square Cm 10.20 -Date of Last Picture (Recall this 10/27/22 field) -Photo Taken Yes -Epithelialization Large 67-100% -Tunneling No -Undermining/Tunneling No -Circular Undermining No -Granulation Amt Large (67-100%) -Granulation Quality Red -Slough/Fibrin Yes -Necrotic Tissue Type Adherent Slough -Structure Exposed N/A -Texture (Maryann-wound Skin Appearance) Assessed -Moisture (Maryann-wound Skin Appearance) Dry/Scaly -Color (Maryann-wound Skin Appearance) Assessed, Erythema -Ulcer Cleansing Soap and Water -Anesthetic Used 5% Lidocaine Gel #3- R CALF CLUSTER -Combined with other wound No -Current Size (cm) - Length 3.1 -Current Size (cm) - Width 2.0 -Current Size (cm) - Depth 0.1 -Total Square Cm 6.20 -Date of Last Picture (Recall this 10/27/22 field) -Photo Taken Yes -Epithelialization Large 67-100% -Tunneling No -Undermining/Tunneling No -Circular Undermining No -Granulation Amt Large (67-100%) -Granulation Quality Red -Slough/Fibrin Yes -Necrotic Tissue Type Adherent Slough -Structure Exposed N/A -Texture (Maryann-wound Skin Appearance) Assessed -Moisture (Maryann-wound Skin Appearance) Assessed,Dry/ Scaly -Color (Maryann-wound Skin Appearance) Assessed, Erythema -Ulcer Cleansing Soap and Water -Anesthetic Used 5% Lidocaine Gel #2- R MED CALF -Combined with other wound No -Current Size (cm) - Length 2.7 -Current Size (cm) - Width 1.8 -Current Size (cm) - Depth 0.1 -Total Square Cm 4.86 -Date of Last Picture (Recall this 10/27/22 field) -Photo Taken Yes -Epithelialization Large 67-100% -Tunneling No -Undermining/Tunneling No -Circular Undermining No -Granulation Amt Large (67-100%) -Granulation Quality Red -Slough/Fibrin Yes -Necrotic Tissue Type Adherent Slough -Structure Exposed N/A -Texture (Maryann-wound Skin Appearance) Assessed -Moisture (Maryann-wound Skin Appearance) Assessed,Dry/ Scaly -Color (Maryann-wound Skin Appearance) Assessed, Erythema -Temperature (Maryann-wound Skin No Abnormality Appearance) (Pt Warm) -Ulcer Cleansing Soap and Water -Anesthetic Used 5% Lidocaine Gel Lower Limb Edema Present Yes Right Calf (cm) 43.5 Right Ankle (cm) 22.8 Left Calf (cm) 42.5 Left Ankle (cm) 23.3 WC - Nurse 2 - General Ulcer CM Notes Start: 10/27/22 13:14 Freq: Status: Active Protocol: Activity Type Activity Date Activity User E-sign Co-sign Detail Recorded Client Recorded Date Recorded By Document 10/27/22 13:35 KATELYNN [id number] 10/27/22 13:43 KATELYNN 10/27/22 13:35 Wound Center Nurse 2 #4- L LAT SANCHEZ CLUSTER -Correct Patient No -Correct Side, Site, Position No -Correct Procedure No -Procedure Performed No -Post Debridement (cm) - Length 0 -Post Debridement (cm) - Width 0 -Post Debridement (cm) - Depth 0 -Total Square (Post) (cm) 0 -Area of Debridement (cm) - Length 0 -Area of Debridement (cm) - Width 0 -Total Square (Area) (cm) 0 -Wound/Ulcer Outcome Healed- Epithelialized #5- L LAT POST LE -Time 13:36 -Correct Patient Yes -Correct Side, Site, Position Yes -Correct Procedure Yes -Procedure Performed Yes -Type of Procedure Debridement -Clinical Debridement Subcutaneous -Tissue Removed Subcutaneous -Post Debridement (cm) - Length 3.3 -Post Debridement (cm) - Width 3 -Post Debridement (cm) - Depth 0.1 -Total Square (Post) (cm) 9.9 -Area of Debridement (cm) - Length 3.3 -Area of Debridement (cm) - Width 3.0 -Total Square (Area) (cm) 9.90 -Tunneling No -Undermining/Tunneling No -Circular Undermining No -Wound/Ulcer Outcome Not Healed -Ulcer Cleansing Rinsed/ Irrigated with Saline -Foul Odor after Cleansing No -Bioengineered Tissue No -Bleeding Controlled with Pressure -Treatment Response Procedure Tolerated Well -Offloading No -Debridement - Subq, 1st 20sq cm No #3- R CALF CLUSTER -Time 13:39 -Correct Patient Yes -Correct Side, Site, Position Yes -Correct Procedure Yes -Procedure Performed Yes -Type of Procedure Debridement -Clinical Debridement Subcutaneous -Tissue Removed Subcutaneous -Post Debridement (cm) - Length 3.9 -Post Debridement (cm) - Width 2.7 -Post Debridement (cm) - Depth 0.1 -Total Square (Post) (cm) 10.53 -Area of Debridement (cm) - Length 3.9 -Area of Debridement (cm) - Width 2.7 -Total Square (Area) (cm) 10.53 -Tunneling No -Undermining/Tunneling No -Circular Undermining No -Wound/Ulcer Outcome Not Healed -Ulcer Cleansing Rinsed/ Irrigated with Saline -Foul Odor after Cleansing No -Bioengineered Tissue No -Bleeding Controlled with Pressure -Treatment Response Procedure Tolerated Well -Offloading No -Debridement - Subq, 1st 20sq cm No #2- R MED CALF -Time 13:40 -Correct Patient Yes -Correct Side, Site, Position Yes -Correct Procedure Yes -Procedure Performed Yes -Type of Procedure Debridement -Clinical Debridement Subcutaneous -Tissue Removed Subcutaneous -Post Debridement (cm) - Length 3.6 -Post Debridement (cm) - Width 1.7 -Post Debridement (cm) - Depth 0.1 -Total Square (Post) (cm) 6.12 -Area of Debridement (cm) - Length 3.6 -Area of Debridement (cm) - Width 1.7 -Total Square (Area) (cm) 6.12 -Tunneling No -Undermining/Tunneling No -Circular Undermining No -Wound/Ulcer Outcome Not Healed -Ulcer Cleansing Rinsed/ Irrigated with Saline -Foul Odor after Cleansing No -Bioengineered Tissue No -Bleeding Controlled with Pressure -Treatment Response Procedure Tolerated Well -Offloading No -Debridement - Subq, 1st 20sq cm Yes -Debridement, SubQ, ea addt'l 20sq cm 1 or part thereof Pain Scale: 0-10 Numeric Is Patient Pain Free? Yes Additional Wound Wound debrided: R posterior calf cluster Laterality: Right Type of Debridement: Excisional debridement Anesthesia Used: 5% Lidocaine Gel Depth: Down to and including healthy tissue and in the subcutaneous layer Percentage of wound debrided: 100 Instrument Used: 5mm curette Tissue Removed: slough, devitalized tissue Severity: Limited To Skin Breakdown Amount of bleeding with debridement: Mild Bleeding Controlled with: Pressure Patient tolerated procedure: Patient tolerated procedure well Additional Wound Wound debrided: R medial calf Laterality: Right Type of Debridement: Excisional debridement Anesthesia Used: 5% Lidocaine Gel Depth: Down to and including healthy tissue Percentage of wound debrided: 100 Instrument Used: 5mm curette Tissue Removed: slough, devitalized Severity: Limited To Skin Breakdown Amount of bleeding with debridement: Mild Bleeding Controlled with: Pressure Patient tolerated procedure: Patient tolerated procedure well Assessment/Plan Assessment/Plan (1) Non-pressure chronic ulcer of right calf with fat layer exposed: CODE(S): L97.212 - Non-pressure chronic ulcer of right calf with fat layer exposed (2) Non-pressure chronic ulcer of right calf limited to breakdown of skin: CODE(S): L97.211 - Non-pressure chronic ulcer of right calf limited to breakdown of skin (3) Non-pressure chronic ulcer of left calf limited to breakdown of skin: CODE(S): L97.221 - Non-pressure chronic ulcer of left calf limited to breakdown of skin PLAN: Plan Still with significant bilateral lower extremity edema. Tubigrips were cut to less than half of their intended length which negates utility. Continue Aquacel extra covered with super absorber. 3M wraps for compression. Encouraged her to try to elevate her feet more often throughout the day and as high as tolerated when sleeping in chair at night. Will follow-up for nurse's visit next Sunday to have dressing/3M wrap changed. Will f/u with me in 1 week.
[2022-10-31 13:23] VITALS: BP 172/74; PULSE 77; RESP 20; TEMP 35.6; BMI 38.2
--- NOTE | 2022-11-03 07:26 | PN.PCM_ITS ---
History of Present Illness Date of Service: 11/03/22 Chief Complaint: BLE wounds History of Wound: Patient is an 81-year-old female who resides at [facility]. She is referred by facility for evaluation and management of bilateral lower extremity wounds which have been ongoing for several weeks. Patient is unaccompanied to her appointment today. She does appear to have some level of dementia and is somewhat confused at times so is a rather poor historian. Referral paperwork indicates that patient had lower extremity cellulitis about a month ago which was treated with p.o. antibiotics. Current wound treatment consists of cleansing with wound cleanser covering with Telfa and wrapping with Kerlix daily. She reports a lot of pain associated with the wounds, but denies this pain being present prior to the wounds appearing. Patient states she is not diabetic and by review of her medication list this appears to be accurate. She states she does not smoke. She reports that she has never had wounds like this in the past. She is ambulatory and denies claudication type symptoms. She does have bilateral lower extremity edema with some fluid-filled blisters and serous fluid draining from wounds. She tells me that she does not wear compression. She typically sleeps in a chair. Subjective Subjective She tolerated the 3M wraps very well this week and her lower extremity edema is significantly improved. No N/V, F/C, new or worsening pain in lower extremities. Objective Data Objective Data Vital Signs: Vital Signs Temp Pulse Resp BP O2 Del Method 96.1 F L 77 20 H 172/74 H Room Air 10/31/22 13:23 10/31/22 13:23 10/31/22 13:23 10/31/22 13:23 10/31/22 13:23 Oxygen Delivery Method Room Air Weight: 196 lb Body Mass Index (BMI) 38.2 Charges/Coding Procedures Integumentary 111xxx-113xx: [id number] Otilia subq tissue 20 sq cm/< Physical Exam Const alert, oriented x3 and no apparent distress Orientation / Consciousness: confused HEENT normocephalic, head/scalp atraumatic, hearing grossly normal bilaterally, external ears normal and external nose normal Eyes EOMs intact bilaterally General Eye: normal appearance of both eyes Neck General: normal visual inspection and trachea midline Resp normal respiratory effort, normal air movement, no retractions and no use of accessory muscles Effort and Inspection: able to speak in complete sentences; Negative for stridor or audible wheezes Cardio Rate: regular rate Rhythm: regular rhythm Extremity Extremity Narrative: Bilateral lower extremity edema significantly improved from prior, no fluid- filled blisters and no erythema. No particularly prominent varicose veins. Pulses diminished to palpation with monophasic signals. Appropriate color and normal capillary refill. Skin Wounds: wounds noted Wound Narrative: Right posterior calf cluster of superficial wounds with pink granulation tissue and minimal slough. Right posteromedial calf wound with minimal slough but areas of pink granulation tissue noted, no necrotic tissue or eschar. Left posterior calf wound, superficial with pink granulation tissue. All wounds have improved in size from last week. Neuro oriented x3, CN's II-XII intact bilaterally, moves all extremities and no focal motor deficits Psych Appearance: grossly normal Attitude: calm Debridement Note Debridement Note Wound debrided: Left posterolateral lower leg Laterality: Left Type of Debridement: Excisional debridement Anesthesia Used: 5% Lidocaine Gel Depth: Down to and including healthy tissue Percentage of wound debrided: 100 Instrument Used: 5mm curette Tissue Removed: Devitalized tissue, slough Severity: Limited To Skin Breakdown Amount of bleeding with debridement: Mild Bleeding Controlled with: Pressure Patient tolerated procedure: Patient tolerated procedure well Post-Debridement Measurements and Additional Note: Post-Debridement Measurements/Treatment - Nurse 1 - General Ulcer Assessment Start: 10/27/22 13:14 Freq: Status: Active Protocol: STACIA Activity Type Activity Date Activity User E-sign Co-sign Detail Recorded Client Recorded Date Recorded By Document 10/27/22 13:14 KW [id number] 10/27/22 13:25 KW Document 10/31/22 13:23 [id number] 10/31/22 13:28 MW 10/27/22 10/31/22 13:14 13:23 - Today's Visit Information Type of service Follow-up Visit Nurse-only (Physician/SUPERINTENDENT MEASUREMENT Visit ) Arrival Mode Walker Ambulatory, Walker Transfer Assistance None Accompanied by self Patient Identification Verified (Name & Yes ) Patient Requires Transmission-Based No Precautions Safety Precautions Fall Prevention Fall Prevention Height and Weight Body Mass Index (BMI) 38.2 38.2 BMI Classification Obese Obese Vital Signs Temperature (97.8 F-99.1 F) 96.7 F L 96.1 F L Temperature Source Temporal Temporal Pulse Rate (60-100) 84 77 Pulse Location Monitor Monitor Respiratory Rate (12-18) 16 20 H Respiratory rate source Observation Oxygen Delivery Method Room Air Blood Pressure (90/60-120/80) 153/70 H 172/74 H Blood Pressure Mean (mm Hg) 97 106 Source Monitor Monitor Position Semi-Fowlers Sitting Blood Pressure Location Left Arm Left Forearm History Since Last Visit- (Skip if this is Patient's initial visit) Have you changed medications since your No No last visit? Any new allergies or adverse reactions No No Had a fall/change in ADL's that may No No increase risk of falls Signs or symptoms of abuse and/or No No neglect since last visit Have you been in the hospital since your No No last visit? Has dressing in place as prescribed Yes Yes Has compression in place as prescribed No Yes Has offloadiing in place as prescribed N/A N/A Experienced any changes in pain level or No No management Left Footwear Regular Shoe Regular Shoe Right Footwear Regular Shoe Regular Shoe Pain Scale: 0-10 Numeric Is Patient Pain Free? Yes Yes WC - Nurse 1 - General Ulcer Measurement Start: 10/27/22 13:14 Freq: Status: Active Protocol: Activity Type Activity Date Activity User E-sign Co-sign Detail Recorded Client Recorded Date Recorded By Document 10/27/22 13:14 KW [id number] 10/27/22 13:25 KW Document 10/31/22 13:23 MW [id number] 10/31/22 13:28 MW 10/27/22 10/31/22 13:14 13:23 Wound Center Nurse 1 #4- L LAT SANCHEZ CLUSTER -Combined with other wound No -Current Size (cm) - Length 0 -Current Size (cm) - Width 0 -Current Size (cm) - Depth 0 -Total Square Cm 0 -Date of Last Picture (Recall this 10/27/22 field) -Photo Taken Yes -Epithelialization Large 67-100% -Tunneling No -Undermining/Tunneling No -Circular Undermining No -Granulation Amt Large (67-100%) -Granulation Quality Red -Slough/Fibrin Yes -Necrotic Tissue Type Adherent Slough -Structure Exposed N/A -Texture (Maryann-wound Skin Appearance) Assessed -Moisture (Maryann-wound Skin Appearance) Assessed,Dry/ Scaly -Color (Maryann-wound Skin Appearance) Assessed, Erythema -Ulcer Cleansing Soap and Water -Anesthetic Used 5% Lidocaine Gel #5- L LAT POST LE -Combined with other wound No -Current Size (cm) - Length 3.4 -Current Size (cm) - Width 3.0 -Current Size (cm) - Depth 0.1 -Total Square Cm 10.20 -Date of Last Picture (Recall this 10/27/22 field) -Photo Taken Yes -Epithelialization Large 67-100% -Tunneling No -Undermining/Tunneling No -Circular Undermining No -Granulation Amt Large (67-100%) -Granulation Quality Red -Slough/Fibrin Yes -Necrotic Tissue Type Adherent Slough -Structure Exposed N/A -Texture (Maryann-wound Skin Appearance) Assessed Assessed, Localized Edema -Moisture (Maryann-wound Skin Appearance) Dry/Scaly Assessed,Dry/ Scaly -Color (Maryann-wound Skin Appearance) Assessed, No Abnormality, Erythema Assessed -Temperature (Maryann-wound Skin No Abnormality Appearance) (Pt Warm) -Tenderness on Palpation (Maryann-wound No Skin Appearance) -Ulcer Cleansing Soap and Water Soap and Water -Foul Odor after Cleansing No -Anesthetic Used 5% Lidocaine Gel #3- R CALF CLUSTER -Combined with other wound No -Current Size (cm) - Length 3.1 -Current Size (cm) - Width 2.0 -Current Size (cm) - Depth 0.1 -Total Square Cm 6.20 -Date of Last Picture (Recall this 10/27/22 field) -Photo Taken Yes -Epithelialization Large 67-100% -Tunneling No -Undermining/Tunneling No -Circular Undermining No -Granulation Amt Large (67-100%) -Granulation Quality Red -Slough/Fibrin Yes -Necrotic Tissue Type Adherent Slough -Structure Exposed N/A -Texture (Maryann-wound Skin Appearance) Assessed Assessed, Localized Edema -Moisture (Maryann-wound Skin Appearance) Assessed,Dry/ Assessed,Dry/ Scaly Scaly -Color (Maryann-wound Skin Appearance) Assessed, No Abnormality, Erythema Assessed -Temperature (Maryann-wound Skin No Abnormality Appearance) (Pt Warm) -Tenderness on Palpation (Maryann-wound No Skin Appearance) -Ulcer Cleansing Soap and Water Soap and Water -Foul Odor after Cleansing No -Anesthetic Used 5% Lidocaine Gel #2- R MED CALF -Combined with other wound No -Current Size (cm) - Length 2.7 -Current Size (cm) - Width 1.8 -Current Size (cm) - Depth 0.1 -Total Square Cm 4.86 -Date of Last Picture (Recall this 10/27/22 field) -Photo Taken Yes -Epithelialization Large 67-100% -Tunneling No -Undermining/Tunneling No -Circular Undermining No -Granulation Amt Large (67-100%) -Granulation Quality Red -Slough/Fibrin Yes -Necrotic Tissue Type Adherent Slough -Structure Exposed N/A -Texture (Maryann-wound Skin Appearance) Assessed Assessed, Localized Edema -Moisture (Maryann-wound Skin Appearance) Assessed,Dry/ Assessed,Dry/ Scaly Scaly -Color (Maryann-wound Skin Appearance) Assessed, No Abnormality, Erythema Assessed -Temperature (Maryann-wound Skin No Abnormality No Abnormality Appearance) (Pt Warm) (Pt Warm) -Tenderness on Palpation (Maryann-wound No Skin Appearance) -Ulcer Cleansing Soap and Water Soap and Water -Foul Odor after Cleansing No -Anesthetic Used 5% Lidocaine Gel Lower Limb Edema Present Yes Yes Right Calf (cm) 43.5 39.3 Right Ankle (cm) 22.8 23.0 Left Calf (cm) 42.5 37.5 Left Ankle (cm) 23.3 23.0 WC - Nurse 2 - General Ulcer CM Notes Start: 10/27/22 13:14 Freq: Status: Active Protocol: Activity Type Activity Date Activity User E-sign Co-sign Detail Recorded Client Recorded Date Recorded By Document 10/27/22 13:35 KATELYNN [id number] 10/27/22 13:43 KATELYNN 10/27/22 13:35 Wound Center Nurse 2 #4- L LAT SANCHEZ CLUSTER -Correct Patient No -Correct Side, Site, Position No -Correct Procedure No -Procedure Performed No -Post Debridement (cm) - Length 0 -Post Debridement (cm) - Width 0 -Post Debridement (cm) - Depth 0 -Total Square (Post) (cm) 0 -Area of Debridement (cm) - Length 0 -Area of Debridement (cm) - Width 0 -Total Square (Area) (cm) 0 -Wound/Ulcer Outcome Healed- Epithelialized #5- L LAT POST LE -Time 13:36 -Correct Patient Yes -Correct Side, Site, Position Yes -Correct Procedure Yes -Procedure Performed Yes -Type of Procedure Debridement -Clinical Debridement Subcutaneous -Tissue Removed Subcutaneous -Post Debridement (cm) - Length 3.3 -Post Debridement (cm) - Width 3 -Post Debridement (cm) - Depth 0.1 -Total Square (Post) (cm) 9.9 -Area of Debridement (cm) - Length 3.3 -Area of Debridement (cm) - Width 3.0 -Total Square (Area) (cm) 9.90 -Tunneling No -Undermining/Tunneling No -Circular Undermining No -Wound/Ulcer Outcome Not Healed -Ulcer Cleansing Rinsed/ Irrigated with Saline -Foul Odor after Cleansing No -Bioengineered Tissue No -Bleeding Controlled with Pressure -Treatment Response Procedure Tolerated Well -Offloading No -Debridement - Subq, 1st 20sq cm No #3- R CALF CLUSTER -Time 13:39 -Correct Patient Yes -Correct Side, Site, Position Yes -Correct Procedure Yes -Procedure Performed Yes -Type of Procedure Debridement -Clinical Debridement Subcutaneous -Tissue Removed Subcutaneous -Post Debridement (cm) - Length 3.9 -Post Debridement (cm) - Width 2.7 -Post Debridement (cm) - Depth 0.1 -Total Square (Post) (cm) 10.53 -Area of Debridement (cm) - Length 3.9 -Area of Debridement (cm) - Width 2.7 -Total Square (Area) (cm) 10.53 -Tunneling No -Undermining/Tunneling No -Circular Undermining No -Wound/Ulcer Outcome Not Healed -Ulcer Cleansing Rinsed/ Irrigated with Saline -Foul Odor after Cleansing No -Bioengineered Tissue No -Bleeding Controlled with Pressure -Treatment Response Procedure Tolerated Well -Offloading No -Debridement - Subq, 1st 20sq cm No #2- R MED CALF -Time 13:40 -Correct Patient Yes -Correct Side, Site, Position Yes -Correct Procedure Yes -Procedure Performed Yes -Type of Procedure Debridement -Clinical Debridement Subcutaneous -Tissue Removed Subcutaneous -Post Debridement (cm) - Length 3.6 -Post Debridement (cm) - Width 1.7 -Post Debridement (cm) - Depth 0.1 -Total Square (Post) (cm) 6.12 -Area of Debridement (cm) - Length 3.6 -Area of Debridement (cm) - Width 1.7 -Total Square (Area) (cm) 6.12 -Tunneling No -Undermining/Tunneling No -Circular Undermining No -Wound/Ulcer Outcome Not Healed -Ulcer Cleansing Rinsed/ Irrigated with Saline -Foul Odor after Cleansing No -Bioengineered Tissue No -Bleeding Controlled with Pressure -Treatment Response Procedure Tolerated Well -Offloading No -Debridement - Subq, 1st 20sq cm Yes -Debridement, SubQ, ea addt'l 20sq cm 1 or part thereof Pain Scale: 0-10 Numeric Is Patient Pain Free? Yes WC - Nurse 3 - General Ulcer D/C NN Start: 10/27/22 13:14 Freq: Status: Active Protocol: Activity Type Activity Date Activity User E-sign Co-sign Detail Recorded Client Recorded Date Recorded By Document 10/27/22 14:24 [id number] 10/27/22 14:26 JF Document 10/31/22 13:23 MW [id number] 10/31/22 13:28 MW 10/27/22 10/31/22 14:24 13:23 Wound Care Center Nurse 3 #5- L LAT POST LE -Ulcer Cleansing Rinsed/ Soap and Water Irrigated with Saline -Foul Odor after Cleansing No No -Negative Pressure Wound Therapy N/A -Primary Dressing Applied Aquacel Extra Aquacel Extra -Other Dressing abd -Other Covering abd pad -Aquacel Extra 1 1 #3- R CALF CLUSTER -Ulcer Cleansing Rinsed/ Soap and Water Irrigated with Saline -Foul Odor after Cleansing No No -Negative Pressure Wound Therapy N/A -Primary Dressing Applied Aquacel Extra -Other Dressing abd aquacel extra -Other Covering abd pad -Aquacel Extra 0 #2- R MED CALF -Ulcer Cleansing Rinsed/ Soap and Water Irrigated with Saline -Foul Odor after Cleansing No No -Negative Pressure Wound Therapy N/A -Primary Dressing Applied Aquacel Extra -Other Dressing abd aquacel extra -Other Covering abd pad -Aquacel Extra 0 Maryann-Wound Care Cream Bilateral LE -Lotion applied to leg before Yes compression wrap -Multi-Layered Wrap Application Multi-Layer Comp - Bilat ($ ) Left -Multi-Layered Wrap Application Multi-Layer Comp - Bilat ($ ) Treatment Response Procedure Tolerated Well Vital Signs Temperature (97.8 F-99.1 F) 96.1 F L Temperature Source Temporal Pulse Rate (60-100) 77 Pulse Location Monitor Respiratory Rate (12-18) 20 H Respiratory rate source Observation Oxygen Delivery Method Room Air Blood Pressure (90/60-120/80) 172/74 H Blood Pressure Mean (mm Hg) 106 Source Monitor Position Sitting Blood Pressure Location Left Forearm Pain Scale: 0-10 Numeric Is Patient Pain Free? Yes Yes WC - Visit Discharge Discharge Condition Stable Stable Ambulatory Status Ambulatory, Ambulatory, Walker Walker Transportation Private Auto transportation Accompanied by self Medication Reconcilliation completed & Yes No provided to patient/care provider Clinical Summary of Care Provided Yes Yes Additional Wound Wound debrided: R posterior calf cluster Laterality: Right Type of Debridement: Excisional debridement Anesthesia Used: 5% Lidocaine Gel Depth: Down to and including healthy tissue and in the subcutaneous layer Percentage of wound debrided: 100 Instrument Used: 5mm curette Tissue Removed: slough, devitalized tissue Severity: Limited To Skin Breakdown Amount of bleeding with debridement: Mild Bleeding Controlled with: Pressure Patient tolerated procedure: Patient tolerated procedure well Additional Wound Wound debrided: R medial calf Laterality: Right Type of Debridement: Excisional debridement Anesthesia Used: 5% Lidocaine Gel Depth: Down to and including healthy tissue Percentage of wound debrided: 100 Instrument Used: 5mm curette Tissue Removed: slough, devitalized Severity: Limited To Skin Breakdown Amount of bleeding with debridement: Mild Bleeding Controlled with: Pressure Patient tolerated procedure: Patient tolerated procedure well Assessment/Plan Assessment/Plan (1) Non-pressure chronic ulcer of right calf with fat layer exposed: CODE(S): L97.212 - Non-pressure chronic ulcer of right calf with fat layer exposed (2) Non-pressure chronic ulcer of right calf limited to breakdown of skin: CODE(S): L97.211 - Non-pressure chronic ulcer of right calf limited to breakdown of skin (3) Non-pressure chronic ulcer of left calf limited to breakdown of skin: CODE(S): L97.221 - Non-pressure chronic ulcer of left calf limited to breakdown of skin PLAN: Plan Her bilateral lower extremity edema is much improved with 3M wraps over this last week. Overall appearance of her skin is much improved with no fluid-filled blisters or erythema present today. Continue Aquacel extra covered with super absorber. 3M wraps for compression. Encouraged her to try to elevate her feet more often throughout the day and as high as tolerated when sleeping in chair at night. Follow-up in the [facility] in 1 week.
[2022-11-03 13:32] VITALS: BP 137/73; BMI 38.2
--- NOTE | 2022-11-10 07:58 | PCM.WC.PN ---
History of Present Illness Date of Service: 11/10/22 Chief Complaint: BLE wounds History of Wound: Patient is an 81-year-old female who resides at [facility]. She is referred by facility for evaluation and management of bilateral lower extremity wounds which have been ongoing for several weeks. Patient is unaccompanied to her appointment today. She does appear to have some level of dementia and is somewhat confused at times so is a rather poor historian. Referral paperwork indicates that patient had lower extremity cellulitis about a month ago which was treated with p.o. antibiotics. Current wound treatment consists of cleansing with wound cleanser covering with Telfa and wrapping with Kerlix daily. She reports a lot of pain associated with the wounds, but denies this pain being present prior to the wounds appearing. Patient states she is not diabetic and by review of her medication list this appears to be accurate. She states she does not smoke. She reports that she has never had wounds like this in the past. She is ambulatory and denies claudication type symptoms. She does have bilateral lower extremity edema with some fluid-filled blisters and serous fluid draining from wounds. She tells me that she does not wear compression. She typically sleeps in a chair. Subjective Subjective From wound care perspective, patient is doing well. No issues with 3M wraps left in place the whole week. Improved pain, some increased itching. She continues to elevate her legs as often as possible. Unfortunately, she had a fall the night before last. She went to the ER and was negative for head bleed but does have a broken nose and a few small skin tears to her face. Her nose hurts, but otherwise she is feeling okay now. Objective Data Objective Data Vital Signs: Vital Signs Temp Pulse Resp BP O2 Del Method 96.1 F L 77 20 H 137/73 H Room Air 10/31/22 13:23 10/31/22 13:23 10/31/22 13:23 11/03/22 13:32 10/31/22 13:23 Oxygen Delivery Method Room Air Weight: 196 lb Body Mass Index (BMI) 38.2 Charges/Coding Procedures Integumentary 111xxx-113xx: [id number] Otilia subq tissue 20 sq cm/< Physical Exam Const alert, oriented x3 and no apparent distress Orientation / Consciousness: confused HEENT normocephalic, hearing grossly normal bilaterally, external ears normal and external nose normal HEENT Narrative: She has bruising to her nose and orbital area. Skin tear/lac to R eyebrow/orbital, small skin tear R nasolabial fold, and near R lip. Eyes EOMs intact bilaterally General Eye: normal appearance of both eyes Neck General: normal visual inspection and trachea midline Resp normal respiratory effort, normal air movement, no retractions and no use of accessory muscles Effort and Inspection: able to speak in complete sentences; Negative for stridor or audible wheezes Cardio Rate: regular rate Rhythm: regular rhythm Extremity Extremity Narrative: Bilateral lower extremity edema significantly improved from prior, no fluid-filled blisters and no erythema. No particularly prominent varicose veins. Pulses diminished to palpation with monophasic signals. Appropriate color and normal capillary refill. Skin Wounds: wounds noted Wound Narrative: Right posterior calf cluster of superficial wounds with pink granulation tissue and minimal slough. Right posteromedial calf wound with minimal slough but areas of pink granulation tissue noted, no necrotic tissue or eschar. Left posterior calf wound, superficial with pink granulation tissue. All wounds have improved in size from last week. Neuro oriented x3, CN's II-XII intact bilaterally, moves all extremities and no focal motor deficits Psych Appearance: grossly normal Attitude: calm Debridement Note Debridement Note Wound debrided: Left posterolateral lower leg Laterality: Left Type of Debridement: Excisional debridement Anesthesia Used: 5% Lidocaine Gel Depth: Down to and including healthy tissue Percentage of wound debrided: 100 Instrument Used: 5mm curette Tissue Removed: Devitalized tissue, slough Severity: Limited To Skin Breakdown Amount of bleeding with debridement: Mild Bleeding Controlled with: Pressure Patient tolerated procedure: Patient tolerated procedure well Post-Debridement Measurements and Additional Note: Post-Debridement Measurements/Treatment NIRU - Nurse 1 - General Ulcer Assessment Start: 10/27/22 13:14 Freq: Status: Active Protocol: STACIA Activity Type Activity Date Activity User E-sign Co-sign Detail Recorded Client Recorded Date Recorded By Document 10/27/22 13:14 KW [id number] 10/27/22 13:25 KW Document 10/31/22 13:23 MW [id number] 10/31/22 13:28 MW Document 11/03/22 13:32 AK [id number] 11/03/22 13:36 AK 06/02/1010/31/22 11/03/22 13:14 13: 13:32 WC - Today's Visit Information Type of service Follow-up Visit Nurse-only Follow-up Visit (Physician/MORTGAGE UNDERWRITER Visit (Physician/MORTGAGE UNDERWRITER ) ) Arrival Mode Walker Ambulatory, Ambulatory, Walker Walker Transfer Assistance None Accompanied by self Patient Identification Verified (Name & Yes No ) Patient Requires Transmission-Based No No Precautions Safety Precautions Fall Prevention Fall Prevention Height and Weight Body Mass Index (BMI) 38.2 38.2 38.2 BMI Classification Obese Obese Obese Vital Signs Temperature (97.8 F-99.1 F) 96.7 F L 96.1 F L Temperature Source Temporal Temporal Pulse Rate (60-100) 84 77 Pulse Location Monitor Monitor Respiratory Rate (12-18) 16 20 H Respiratory rate source Observation Oxygen Delivery Method Room Air Blood Pressure (90/60-120/80) 153/70 H 172/74 H 137/73 H Blood Pressure Mean (mm Hg) 97 106 94 Source Monitor Monitor Monitor Position Semi-Fowlers Sitting Blood Pressure Location Left Arm Left Forearm History Since Last Visit- (Skip if this is Patient's initial visit) Have you changed medications since your No No No last visit? Any new allergies or adverse reactions No No No Had a fall/change in ADL's that may No No No increase risk of falls Signs or symptoms of abuse and/or No No No neglect since last visit Have you been in the hospital since your No No No last visit? Has dressing in place as prescribed Yes Yes Yes Has compression in place as prescribed No Yes Yes Has offloadiing in place as prescribed N/A N/A N/A Experienced any changes in pain level or No No No management Left Footwear Regular Shoe Regular Shoe Regular Shoe Right Footwear Regular Shoe Regular Shoe Regular Shoe Pain Scale: 0-10 Numeric Is Patient Pain Free? Yes Yes No WC - Nurse 1 - General Ulcer Measurement Start: 10/27/22 13:14 Freq: Status: Active Protocol: Activity Type Activity Date Activity User E-sign Co-sign Detail Recorded Client Recorded Date Recorded By Document 10/27/22 13:14 KW [id number] 10/27/22 13:25 KW Document 10/31/22 13:23 MW [id number] 10/31/22 13:28 MW Document 11/03/22 13:32 AK [id number] 11/03/22 13:36 AK 10/27/22 10/31/22 11/03/22 13:14 13:23 13:32 Wound Center Nurse 1 #4- L LAT SANCHEZ CLUSTER -Combined with other wound No -Current Size (cm) - Length 0 -Current Size (cm) - Width 0 -Current Size (cm) - Depth 0 -Total Square Cm 0 -Date of Last Picture (Recall this 10/27/22 field) -Photo Taken Yes -Epithelialization Large 67-100% -Tunneling No -Undermining/Tunneling No -Circular Undermining No -Granulation Amt Large (67-100%) -Granulation Quality Red -Slough/Fibrin Yes -Necrotic Tissue Type Adherent Slough -Structure Exposed N/A -Texture (Maryann-wound Skin Appearance) Assessed -Moisture (Maryann-wound Skin Appearance) Assessed,Dry/ Scaly -Color (Maryann-wound Skin Appearance) Assessed, Erythema -Ulcer Cleansing Soap and Water -Anesthetic Used 5% Lidocaine Gel #5- L LAT POST LE -Combined with other wound No No -Current Size (cm) - Length 3.4 2 -Current Size (cm) - Width 3.0 1 -Current Size (cm) - Depth 0.1 0.1 -Total Square Cm 10.20 2 -Date of Last Picture (Recall this 10/27/22 field) -Photo Taken Yes No -Epithelialization Large 67-100% -Tunneling No No -Undermining/Tunneling No No -Circular Undermining No No -Change in Wound Grade/Stage No -Exudate Amt Small -Exudate Type Serosanguineous -Wound Margin Distinct, Outline Attached -Granulation Amt Large (67-100%) Large (67-100%) -Granulation Quality Red [place] -Slough/Fibrin Yes Yes -Necrosis Amt Small (1-33%) -Necrotic Tissue Type Adherent Slough Adherent Slough -Structure Exposed N/A N/A -Texture (Maryann-wound Skin Appearance) Assessed Assessed, No Abnormality, Localized Edema Assessed -Moisture (Maryann-wound Skin Appearance) Dry/Scaly Assessed,Dry/ No Abnormality, Scaly Assessed -Color (Maryann-wound Skin Appearance) Assessed, No Abnormality, No Abnormality, Erythema Assessed Assessed -Temperature (Maryann-wound Skin No Abnormality No Abnormality Appearance) (Pt Warm) (Pt Warm) -Tenderness on Palpation (Maryann-wound No No Skin Appearance) -Ulcer Cleansing Soap and Water Soap and Water -Foul Odor after Cleansing No No -Anesthetic Used 5% Lidocaine 4% Lidocaine Gel Solution #3- R CALF CLUSTER -Combined with other wound No No -Current Size (cm) - Length 3.1 3 -Current Size (cm) - Width 2.0 1.8 -Current Size (cm) - Depth 0.1 0.2 -Total Square Cm 6.20 5.4 -Date of Last Picture (Recall this 10/27/22 field) -Photo Taken Yes No -Epithelialization Large 67-100% -Tunneling No No -Undermining/Tunneling No No -Circular Undermining No No -Change in Wound Grade/Stage No -Exudate Amt Large -Exudate Type Serosanguineous -Wound Margin Distinct, Outline Attached -Granulation Amt Large (67-100%) Large (67-100%) -Granulation Quality Red Red -Slough/Fibrin Yes Yes -Necrosis Amt Small (1-33%) -Necrotic Tissue Type Adherent Slough -Structure Exposed N/A -Texture (Maryann-wound Skin Appearance) Assessed Assessed, No Abnormality, Localized Edema Assessed -Moisture (Maryann-wound Skin Appearance) Assessed,Dry/ Assessed,Dry/ No Abnormality, Scaly Scaly Assessed -Color (Maryann-wound Skin Appearance) Assessed, No Abnormality, No Abnormality, Erythema Assessed Assessed -Temperature (Maryann-wound Skin No Abnormality No Abnormality Appearance) (Pt Warm) (Pt Warm) -Tenderness on Palpation (Maryann-wound No No Skin Appearance) -Ulcer Cleansing Soap and Water Soap and Water Soap and Water -Foul Odor after Cleansing No No -Anesthetic Used 5% Lidocaine 5% Lidocaine Gel Gel #2- R MED CALF -Combined with other wound No No -Current Size (cm) - Length 2.7 3 -Current Size (cm) - Width 1.8 2 -Current Size (cm) - Depth 0.1 0.2 -Total Square Cm 4.86 6 -Date of Last Picture (Recall this 10/27/22 field) -Photo Taken Yes No -Epithelialization Large 67-100% -Tunneling No -Undermining/Tunneling No No -Circular Undermining No No -Change in Wound Grade/Stage No -Exudate Amt Medium -Exudate Type Serosanguineous -Wound Margin Distinct, Outline Attached -Granulation Amt Large (67-100%) Medium (34-66%) -Granulation Quality Red Red -Slough/Fibrin Yes Yes -Necrosis Amt Medium (34-66%) -Necrotic Tissue Type Adherent Slough Adherent Slough -Structure Exposed N/A N/A -Texture (Maryann-wound Skin Appearance) Assessed Assessed, No Abnormality, Localized Edema Assessed -Moisture (Maryann-wound Skin Appearance) Assessed,Dry/ Assessed,Dry/ Assessed, Scaly Scaly Weeping -Color (Maryann-wound Skin Appearance) Assessed, No Abnormality, No Abnormality, Erythema Assessed Assessed -Temperature (Maryann-wound Skin No Abnormality No Abnormality No Abnormality Appearance) (Pt Warm) (Pt Warm) (Pt Warm) -Tenderness on Palpation (Maryann-wound No No Skin Appearance) -Ulcer Cleansing Soap and Water Soap and Water Soap and Water -Foul Odor after Cleansing No No -Anesthetic Used 5% Lidocaine 5% Lidocaine Gel Gel Lower Limb Edema Present Yes Yes Right Calf (cm) 43.5 39.3 Point of measurement (cm from the medial 37 instep) Right Ankle (cm) 22.8 23.0 Point of Measurement (cm from the medial 22 instep) Left Calf (cm) 42.5 37.5 37 Left Ankle (cm) 23.3 23.0 23 - Nurse 2 - General Ulcer CM Notes Start: 10/27/22 13:14 Freq: Status: Active Protocol: Activity Type Activity Date Activity User E-sign Co-sign Detail Recorded Client Recorded Date Recorded By Document 10/27/22 13:35 [id number] 10/27/22 13:43 Document 11/03/22 14:29 PL [id number] 11/03/22 14:33 PL 10/27/22 11/03/22 13:35 14:29 Wound Center Nurse 2 #4- L LAT SANCHEZ CLUSTER -Correct Patient No -Correct Side, Site, Position No -Correct Procedure No -Procedure Performed No -Post Debridement (cm) - Length 0 -Post Debridement (cm) - Width 0 -Post Debridement (cm) - Depth 0 -Total Square (Post) (cm) 0 -Area of Debridement (cm) - Length 0 -Area of Debridement (cm) - Width 0 -Total Square (Area) (cm) 0 -Wound/Ulcer Outcome Healed- Epithelialized #5- L LAT POST LE -Time 13:36 11:03 -Correct Patient Yes Yes -Correct Side, Site, Position Yes Yes -Correct Procedure Yes Yes -Procedure Performed Yes Yes -Type of Procedure Debridement Debridement -Clinical Debridement Subcutaneous Subcutaneous -Tissue Removed Subcutaneous Subcutaneous -Post Debridement (cm) - Length 3.3 2.6 -Post Debridement (cm) - Width 3 1.1 -Post Debridement (cm) - Depth 0.1 0.1 -Total Square (Post) (cm) 9.9 2.86 -Area of Debridement (cm) - Length 3.3 2.6 -Area of Debridement (cm) - Width 3.0 1.1 -Total Square (Area) (cm) 9.90 2.86 -Tunneling No No -Undermining/Tunneling No No -Circular Undermining No No -Wound/Ulcer Outcome Not Healed Not Healed -Ulcer Cleansing Rinsed/ Rinsed/ Irrigated with Irrigated with Saline Saline -Foul Odor after Cleansing No No -Bioengineered Tissue No No -Bleeding Controlled with Pressure Pressure -Treatment Response Procedure Procedure Tolerated Well Tolerated Well -Offloading No -Debridement - Subq, 1st 20sq cm No No #3- R CALF CLUSTER -Time 13:39 11:03 -Correct Patient Yes Yes -Correct Side, Site, Position Yes Yes -Correct Procedure Yes Yes -Procedure Performed Yes Yes -Type of Procedure Debridement Debridement -Clinical Debridement Subcutaneous Subcutaneous -Tissue Removed Subcutaneous Subcutaneous -Post Debridement (cm) - Length 3.9 2.7 -Post Debridement (cm) - Width 2.7 1.7 -Post Debridement (cm) - Depth 0.1 0.1 -Total Square (Post) (cm) 10.53 4.59 -Area of Debridement (cm) - Length 3.9 2.7 -Area of Debridement (cm) - Width 2.7 1.7 -Total Square (Area) (cm) 10.53 4.59 -Tunneling No No -Undermining/Tunneling No No -Circular Undermining No No -Wound/Ulcer Outcome Not Healed Not Healed -Ulcer Cleansing Rinsed/ Rinsed/ Irrigated with Irrigated with Saline Saline -Foul Odor after Cleansing No No -Bioengineered Tissue No No -Bleeding Controlled with Pressure Pressure -Treatment Response Procedure Procedure Tolerated Well Tolerated Well -Offloading No -Debridement - Subq, 1st 20sq cm No Yes #2- R MED CALF -Time 13:40 11:03 -Correct Patient Yes Yes -Correct Side, Site, Position Yes Yes -Correct Procedure Yes Yes -Procedure Performed Yes Yes -Type of Procedure Debridement Debridement -Clinical Debridement Subcutaneous Subcutaneous -Tissue Removed Subcutaneous Subcutaneous -Post Debridement (cm) - Length 3.6 3.0 -Post Debridement (cm) - Width 1.7 2.0 -Post Debridement (cm) - Depth 0.1 0.1 -Total Square (Post) (cm) 6.12 6.00 -Area of Debridement (cm) - Length 3.6 3.0 -Area of Debridement (cm) - Width 1.7 2.0 -Total Square (Area) (cm) 6.12 6.00 -Tunneling No No -Undermining/Tunneling No No -Circular Undermining No No -Wound/Ulcer Outcome Not Healed Not Healed -Ulcer Cleansing Rinsed/ Rinsed/ Irrigated with Irrigated with Saline Saline -Foul Odor after Cleansing No No -Bioengineered Tissue No No -Bleeding Controlled with Pressure Pressure -Treatment Response Procedure Procedure Tolerated Well Tolerated Well -Offloading No -Debridement - Subq, 1st 20sq cm Yes No -Debridement, SubQ, ea addt'l 20sq cm 1 or part thereof Pain Scale: 0-10 Numeric Is Patient Pain Free? Yes Yes WC - Nurse 3 - General Ulcer D/C NN Start: 10/27/22 13:14 Freq: Status: Active Protocol: Activity Type Activity Date Activity User E-sign Co-sign Detail Recorded Client Recorded Date Recorded By Document 10/27/22 14:24 [id number] 10/27/22 14:26 Document 10/31/22 13:23 MW [id number] 10/31/22 13:28 MW Document 11/03/22 14:50 PL [id number] 11/03/22 14:52 PL 10/27/22 10/31/22 11/03/22 14:24 13:23 14:50 Wound Care Center Nurse 3 #5- L LAT POST LE -Ulcer Cleansing Rinsed/ Soap and Water Rinsed/ Irrigated with Irrigated with Saline Saline -Foul Odor after Cleansing No No No -Negative Pressure Wound Therapy N/A -Primary Dressing Applied Aquacel Extra Aquacel Extra Aquacel Extra -Other Dressing abd -Other Covering abd pad -Aquacel Extra 1 1 1 #3- R CALF CLUSTER -Ulcer Cleansing Rinsed/ Soap and Water Rinsed/ Irrigated with Irrigated with Saline Saline -Foul Odor after Cleansing No No No -Negative Pressure Wound Therapy N/A -Primary Dressing Applied Aquacel Extra Aquacel Extra -Other Dressing abd aquacel extra -Other Covering abd pad -Aquacel Extra 0 1 #2- R MED CALF -Ulcer Cleansing Rinsed/ Soap and Water Rinsed/ Irrigated with Irrigated with Saline Saline -Foul Odor after Cleansing No No No -Negative Pressure Wound Therapy N/A -Primary Dressing Applied Aquacel Extra Aquacel Extra -Other Dressing abd aquacel extra -Other Covering abd pad -Aquacel Extra 0 1 Maryann-Wound Care Cream Bilateral LE -Lotion applied to leg before Yes compression wrap -Multi-Layered Wrap Application Multi-Layer Multi-Layer Comp - Bilat ($ Comp - Bilat ($ ) ) Left -Multi-Layered Wrap Application Multi-Layer Comp - Bilat ($ ) Treatment Response Procedure Tolerated Well Vital Signs Temperature (97.8 F-99.1 F) 96.1 F L Temperature Source Temporal Pulse Rate (60-100) 77 Pulse Location Monitor Respiratory Rate (12-18) 20 H Respiratory rate source Observation Oxygen Delivery Method Room Air Blood Pressure (90/60-120/80) 172/74 H Blood Pressure Mean (mm Hg) 106 Source Monitor Position Sitting Blood Pressure Location Left Forearm Pain Scale: 0-10 Numeric Is Patient Pain Free? Yes Yes Yes WC - Visit Discharge Discharge Condition Stable Stable Stable Ambulatory Status Ambulatory, Ambulatory, Ambulatory, Walker Walker Walker Transportation Private Auto transportation Accompanied by self Medication Reconcilliation completed & Yes No provided to patient/care provider Clinical Summary of Care Provided Yes Yes Additional Wound Wound debrided: R posterior calf cluster Laterality: Right Type of Debridement: Excisional debridement Anesthesia Used: 5% Lidocaine Gel Depth: Down to and including healthy tissue and in the subcutaneous layer Percentage of wound debrided: 100 Instrument Used: 5mm curette Tissue Removed: slough, devitalized tissue Severity: Limited To Skin Breakdown Amount of bleeding with debridement: Mild Bleeding Controlled with: Pressure Patient tolerated procedure: Patient tolerated procedure well Additional Wound Wound debrided: R medial calf Laterality: Right Type of Debridement: Excisional debridement Anesthesia Used: 5% Lidocaine Gel Depth: Down to and including healthy tissue Percentage of wound debrided: 100 Instrument Used: 5mm curette Tissue Removed: slough, devitalized Severity: Limited To Skin Breakdown Amount of bleeding with debridement: Mild Bleeding Controlled with: Pressure Patient tolerated procedure: Patient tolerated procedure well Assessment/Plan Assessment/Plan (1) Non-pressure chronic ulcer of right calf with fat layer exposed: CODE(S): L97.212 - Non-pressure chronic ulcer of right calf with fat layer exposed (2) Non-pressure chronic ulcer of right calf limited to breakdown of skin: CODE(S): L97.211 - Non-pressure chronic ulcer of right calf limited to breakdown of skin (3) Non-pressure chronic ulcer of left calf limited to breakdown of skin: CODE(S): L97.221 - 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 Wounds are improved in size from last week. Continue Aquacel extra covered with super absorber. 3M wraps for compression. Continue to elevate legs. No signs/symptoms of infection. Follow-up in the [facility] in 1 week.
[2022-11-10 10:50] VITALS: BP 177/81; PULSE 74; RESP 22; TEMP 36.3; BMI 38.2
--- NOTE | 2022-11-17 07:13 | PN.PCM_ITS ---
History of Present Illness Date of Service: 11/17/22 Chief Complaint: BLE wounds History of Wound: Patient is an 81-year-old female who resides at [facility]. She is referred by facility for evaluation and management of bilateral lower extremity wounds which have been ongoing for several weeks. Patient is unaccompanied to her appointment today. She does appear to have some level of dementia and is somewhat confused at times so is a rather poor historian. Referral paperwork indicates that patient had lower extremity cellulitis about a month ago which was treated with p.o. antibiotics. Current wound treatment consists of cleansing with wound cleanser covering with Telfa and wrapping with Kerlix daily. She reports a lot of pain associated with the wounds, but denies this pain being present prior to the wounds appearing. Patient states she is not diabetic and by review of her medication list this appears to be accurate. She states she does not smoke. She reports that she has never had wounds like this in the past. She is ambulatory and denies claudication type symptoms. She does have bilateral lower extremity edema with some fluid-filled blisters and serous fluid draining from wounds. She tells me that she does not wear compression. She typically sleeps in a chair. Subjective Subjective Patient is doing well. She complains of some itching around the wounds but no pain. Denies N/V, F/C. Objective Data Objective Data Vital Signs: Vital Signs Temp Pulse Resp BP O2 Del Method 97.4 F L 74 22 H 177/81 H Room Air 11/10/22 10:50 11/10/22 10:50 11/10/22 10:50 11/10/22 10:50 10/31/22 13:23 Oxygen Delivery Method Room Air Weight: 196 lb Body Mass Index (BMI) 38.2 Charges/Coding Procedures Integumentary 111xxx-113xx: [id number] Otilia subq tissue 20 sq cm/< Physical Exam Const alert, oriented x3 and no apparent distress Orientation / Consciousness: confused HEENT normocephalic, hearing grossly normal bilaterally, external ears normal and external nose normal Eyes EOMs intact bilaterally General Eye: normal appearance of both eyes Neck General: normal visual inspection and trachea midline Resp normal respiratory effort, normal air movement, no retractions and no use of accessory muscles Effort and Inspection: able to speak in complete sentences; Negative for stridor or audible wheezes Cardio Rate: regular rate Rhythm: regular rhythm Extremity Extremity Narrative: Bilateral lower extremity edema significantly improved from prior, no fluid- filled blisters and no erythema. No particularly prominent varicose veins. Pulses diminished to palpation with monophasic signals. Appropriate color and normal capillary refill. Skin Wounds: wounds noted Wound Narrative: Right posterior calf cluster of superficial wounds with pink granulation tissue and minimal slough. Right posteromedial calf wound with minimal slough but areas of pink granulation tissue noted, no necrotic tissue or eschar. Left posterior calf wound, superficial with pink granulation tissue. All wounds have improved in size from last week. Neuro oriented x3, CN's II-XII intact bilaterally, moves all extremities and no focal motor deficits Psych Appearance: grossly normal Attitude: calm Debridement Note Debridement Note Wound debrided: Left posterolateral lower leg Laterality: Left Type of Debridement: Excisional debridement Anesthesia Used: 5% Lidocaine Gel Depth: Down to and including healthy tissue Percentage of wound debrided: 100 Instrument Used: 5mm curette Tissue Removed: Devitalized tissue, slough Severity: Limited To Skin Breakdown Amount of bleeding with debridement: Mild Bleeding Controlled with: Pressure Patient tolerated procedure: Patient tolerated procedure well Post-Debridement Measurements and Additional Note: Post-Debridement Measurements/Treatment - Nurse 1 - General Ulcer Assessment Start: 10/27/22 13:14 Freq: Status: Active Protocol: STACIA Activity Type Activity Date Activity User E-sign Co-sign Detail Recorded Client Recorded Date Recorded By Document 10/27/22 13:14 KW [id number] 10/27/22 13:25 KW Document 10/31/22 13:23 MW [id number] 10/31/22 13:28 MW Document 11/03/22 13:32 AK [id number] 11/03/22 13:36 AK Document 11/10/22 10:50 DL [id number] 11/10/22 11:00 DL 10/27/22 10/31/22 11/03/22 13:14 13:23 13:32 - Today's Visit Information Type of service Follow-up Visit Nurse-only Follow-up Visit (Physician/BUSINESS PLANNING DIRECTOR Visit (Physician/BUSINESS PLANNING DIRECTOR ) ) Arrival Mode Walker Ambulatory, Ambulatory, Walker Walker Transfer Assistance None Accompanied by self Patient Identification Verified (Name & Yes No ) Patient Requires Transmission-Based No No Precautions Safety Precautions Fall Prevention Fall Prevention Height and Weight Body Mass Index (BMI) 38.2 38.2 38.2 BMI Classification Obese Obese Obese Vital Signs Temperature (97.8 F-99.1 F) 96.7 F L 96.1 F L Temperature Source Temporal Temporal Pulse Rate (60-100) 84 77 Pulse Location Monitor Monitor Respiratory Rate (12-18) 16 20 H Respiratory rate source Observation Oxygen Delivery Method Room Air Blood Pressure (90/60-120/80) 153/70 H 172/74 H 137/73 H Blood Pressure Mean (mm Hg) 97 106 94 Source Monitor Monitor Monitor Position Semi-Fowlers Sitting Blood Pressure Location Left Arm Left Forearm History Since Last Visit- (Skip if this is Patient's initial visit) Have you changed medications since your No No No last visit? Any new allergies or adverse reactions No No No Had a fall/change in ADL's that may No No No increase risk of falls Signs or symptoms of abuse and/or No No No neglect since last visit Have you been in the hospital since your No No No last visit? Has dressing in place as prescribed Yes Yes Yes Has compression in place as prescribed No Yes Yes Has offloadiing in place as prescribed N/A N/A N/A Experienced any changes in pain level or No No No management Left Footwear Regular Shoe Regular Shoe Regular Shoe Right Footwear Regular Shoe Regular Shoe Regular Shoe Pain Scale: 0-10 Numeric Is Patient Pain Free? Yes Yes No 11/10/22 10:50 WC - Today's Visit Information Type of service Follow-up Visit (Physician/BUSINESS PLANNING DIRECTOR ) Arrival Mode Ambulatory, Walker Transfer Assistance None Accompanied by Patient Identification Verified (Name & Yes ) Patient Requires Transmission-Based No Precautions Safety Precautions Height and Weight Body Mass Index (BMI) 38.2 BMI Classification Obese Vital Signs Temperature (97.8 F-99.1 F) 97.4 F L Temperature Source Temporal Pulse Rate (60-100) 74 Pulse Location Monitor Respiratory Rate (12-18) 22 H Respiratory rate source Observation Oxygen Delivery Method Blood Pressure (90/60-120/80) 177/81 H Blood Pressure Mean (mm Hg) 113 Source Monitor Position Blood Pressure Location History Since Last Visit- (Skip if this is Patient's initial visit) Have you changed medications since your No last visit? Any new allergies or adverse reactions No Had a fall/change in ADL's that may No increase risk of falls Signs or symptoms of abuse and/or No neglect since last visit Have you been in the hospital since your No last visit? Has dressing in place as prescribed Yes Has compression in place as prescribed Yes Has offloadiing in place as prescribed N/A Experienced any changes in pain level or No management Left Footwear Right Footwear Pain Scale: 0-10 Numeric Is Patient Pain Free? Yes WC - Nurse 1 - General Ulcer Measurement Start: 10/27/22 13:14 Freq: Status: Active Protocol: Activity Type Activity Date Activity User E-sign Co-sign Detail Recorded Client Recorded Date Recorded By Document 10/27/22 13:14 KW [id number] 10/27/22 13:25 KW Document 10/31/22 13:23 MW [id number] 10/31/22 13:28 MW Document 11/03/22 13:32 AK [id number] 11/03/22 13:36 AK Document 11/10/22 10:50 DL [id number] 11/10/22 11:00 DL 10/27/22 10/31/22 11/03/22 13:14 13:23 13:32 Wound Center Nurse 1 #4- L LAT SANCHEZ CLUSTER -Combined with other wound No -Current Size (cm) - Length 0 -Current Size (cm) - Width 0 -Current Size (cm) - Depth 0 -Total Square Cm 0 -Date of Last Picture (Recall this 10/27/22 field) -Photo Taken Yes -Epithelialization Large 67-100% -Tunneling No -Undermining/Tunneling No -Circular Undermining No -Granulation Amt Large (67-100%) -Granulation Quality Red -Slough/Fibrin Yes -Necrotic Tissue Type Adherent Slough -Structure Exposed N/A -Texture (Maryann-wound Skin Appearance) Assessed -Moisture (Maryann-wound Skin Appearance) Assessed,Dry/ Scaly -Color (Maryann-wound Skin Appearance) Assessed, Erythema -Ulcer Cleansing Soap and Water -Anesthetic Used 5% Lidocaine Gel #2- R MED CALF -Combined with other wound No No -Current Size (cm) - Length 2.7 3 -Current Size (cm) - Width 1.8 2 -Current Size (cm) - Depth 0.1 0.2 -Total Square Cm 4.86 6 -Date of Last Picture (Recall this 10/27/22 field) -Photo Taken Yes No -Epithelialization Large 67-100% -Tunneling No -Undermining/Tunneling No No -Circular Undermining No No -Change in Wound Grade/Stage No -Exudate Amt Medium -Exudate Type Serosanguineous -Wound Margin Distinct, Outline Attached -Granulation Amt Large (67-100%) Medium (34-66%) -Granulation Quality Red Red -Slough/Fibrin Yes Yes -Necrosis Amt Medium (34-66%) -Necrotic Tissue Type Adherent Slough Adherent Slough -Structure Exposed N/A N/A -Texture (Maryann-wound Skin Appearance) Assessed Assessed, No Abnormality, Localized Edema Assessed -Moisture (Maryann-wound Skin Appearance) Assessed,Dry/ Assessed,Dry/ Assessed, Scaly Scaly Weeping -Color (Maryann-wound Skin Appearance) Assessed, No Abnormality, No Abnormality, Erythema Assessed Assessed -Temperature (Maryann-wound Skin No Abnormality No Abnormality No Abnormality Appearance) (Pt Warm) (Pt Warm) (Pt Warm) -Tenderness on Palpation (Maryann-wound No No Skin Appearance) -Ulcer Cleansing Soap and Water Soap and Water Soap and Water -Foul Odor after Cleansing No No -Anesthetic Used 5% Lidocaine 5% Lidocaine Gel Gel #5- L LAT POST LE -Combined with other wound No No -Current Size (cm) - Length 3.4 2 -Current Size (cm) - Width 3.0 1 -Current Size (cm) - Depth 0.1 0.1 -Total Square Cm 10.20 2 -Date of Last Picture (Recall this 10/27/22 field) -Photo Taken Yes No -Epithelialization Large 67-100% -Tunneling No No -Undermining/Tunneling No No -Circular Undermining No No -Change in Wound Grade/Stage No -Exudate Amt Small -Exudate Type Serosanguineous -Wound Margin Distinct, Outline Attached -Granulation Amt Large (67-100%) Large (67-100%) -Granulation Quality Red Dola -Slough/Fibrin Yes Yes -Necrosis Amt Small (1-33%) -Necrotic Tissue Type Adherent Slough Adherent Slough -Structure Exposed N/A N/A -Texture (Maryann-wound Skin Appearance) Assessed Assessed, No Abnormality, Localized Edema Assessed -Moisture (Maryann-wound Skin Appearance) Dry/Scaly Assessed,Dry/ No Abnormality, Scaly Assessed -Color (Maryann-wound Skin Appearance) Assessed, No Abnormality, No Abnormality, Erythema Assessed Assessed -Temperature (Maryann-wound Skin No Abnormality No Abnormality Appearance) (Pt Warm) (Pt Warm) -Tenderness on Palpation (Maryann-wound No No Skin Appearance) -Ulcer Cleansing Soap and Water Soap and Water -Foul Odor after Cleansing No No -Anesthetic Used 5% Lidocaine 4% Lidocaine Gel Solution #3- R CALF CLUSTER -Combined with other wound No No -Current Size (cm) - Length 3.1 3 -Current Size (cm) - Width 2.0 1.8 -Current Size (cm) - Depth 0.1 0.2 -Total Square Cm 6.20 5.4 -Date of Last Picture (Recall this 10/27/22 field) -Photo Taken Yes No -Epithelialization Large 67-100% -Tunneling No No -Undermining/Tunneling No No -Circular Undermining No No -Change in Wound Grade/Stage No -Exudate Amt Large -Exudate Type Serosanguineous -Wound Margin Distinct, Outline Attached -Granulation Amt Large (67-100%) Large (67-100%) -Granulation Quality Red Red -Slough/Fibrin Yes Yes -Necrosis Amt Small (1-33%) -Necrotic Tissue Type Adherent Slough -Structure Exposed N/A -Texture (Maryann-wound Skin Appearance) Assessed Assessed, No Abnormality, Localized Edema Assessed -Moisture (Maryann-wound Skin Appearance) Assessed,Dry/ Assessed,Dry/ No Abnormality, Scaly Scaly Assessed -Color (Maryann-wound Skin Appearance) Assessed, No Abnormality, No Abnormality, Erythema Assessed Assessed -Temperature (Maryann-wound Skin No Abnormality No Abnormality Appearance) (Pt Warm) (Pt Warm) -Tenderness on Palpation (Maryann-wound No No Skin Appearance) -Ulcer Cleansing Soap and Water Soap and Water Soap and Water -Foul Odor after Cleansing No No -Anesthetic Used 5% Lidocaine 5% Lidocaine Gel Gel Lower Limb Edema Present Yes Yes Right Calf (cm) 43.5 39.3 Point of measurement (cm from the medial 37 instep) Right Ankle (cm) 22.8 23.0 Point of Measurement (cm from the medial 22 instep) Left Calf (cm) 42.5 37.5 37 Left Ankle (cm) 23.3 23.0 11/10/22 10:50 Wound Center Nurse 1 #4- L LAT SANCHEZ CLUSTER -Combined with other wound -Current Size (cm) - Length -Current Size (cm) - Width -Current Size (cm) - Depth -Total Square Cm -Date of Last Picture (Recall this field) -Photo Taken -Epithelialization -Tunneling -Undermining/Tunneling -Circular Undermining -Granulation Amt -Granulation Quality -Slough/Fibrin -Necrotic Tissue Type -Structure Exposed -Texture (Maryann-wound Skin Appearance) -Moisture (Maryann-wound Skin Appearance) -Color (Maryann-wound Skin Appearance) -Ulcer Cleansing -Anesthetic Used #2- R MED CALF -Combined with other wound -Current Size (cm) - Length -Current Size (cm) - Width -Current Size (cm) - Depth -Total Square Cm -Date of Last Picture (Recall this field) -Photo Taken -Epithelialization -Tunneling -Undermining/Tunneling -Circular Undermining -Change in Wound Grade/Stage -Exudate Amt -Exudate Type -Wound Margin -Granulation Amt -Granulation Quality -Slough/Fibrin -Necrosis Amt -Necrotic Tissue Type -Structure Exposed -Texture (Maryann-wound Skin Appearance) -Moisture (Maryann-wound Skin Appearance) -Color (Maryann-wound Skin Appearance) -Temperature (Maraynn-wound Skin Appearance) -Tenderness on Palpation (Maryann-wound Skin Appearance) -Ulcer Cleansing -Foul Odor after Cleansing -Anesthetic Used #5- L LAT POST LE -Combined with other wound -Current Size (cm) - Length 1.7 -Current Size (cm) - Width 0.7 -Current Size (cm) - Depth 0.1 -Total Square Cm 1.19 -Date of Last Picture (Recall this field) -Photo Taken No -Epithelialization -Tunneling -Undermining/Tunneling -Circular Undermining -Change in Wound Grade/Stage -Exudate Amt Medium -Exudate Type Serosanguineous -Wound Margin Distinct, Outline Attached -Granulation Amt Large (67-100%) -Granulation Quality Dola -Slough/Fibrin -Necrosis Amt Small (1-33%) -Necrotic Tissue Type Adherent Slough -Structure Exposed N/A -Texture (Maryann-wound Skin Appearance) Scarring -Moisture (Maryann-wound Skin Appearance) Dry/Scaly -Color (Maryann-wound Skin Appearance) Hemosiderin Staining -Temperature (Maryann-wound Skin No Abnormality Appearance) (Pt Warm) -Tenderness on Palpation (Maryann-wound No Skin Appearance) -Ulcer Cleansing Not Cleansed -Foul Odor after Cleansing No -Anesthetic Used 5% Lidocaine Gel #3- R CALF CLUSTER -Combined with other wound -Current Size (cm) - Length 3.5 -Current Size (cm) - Width 5.3 -Current Size (cm) - Depth 0.2 -Total Square Cm 18.55 -Date of Last Picture (Recall this field) -Photo Taken -Epithelialization -Tunneling -Undermining/Tunneling -Circular Undermining -Change in Wound Grade/Stage -Exudate Amt Medium -Exudate Type Serosanguineous -Wound Margin Distinct, Outline Attached -Granulation Amt Large (67-100%) -Granulation Quality Red -Slough/Fibrin -Necrosis Amt Small (1-33%) -Necrotic Tissue Type Adherent Slough -Structure Exposed N/A -Texture (Maryann-wound Skin Appearance) Scarring -Moisture (Maryann-wound Skin Appearance) Dry/Scaly -Color (Maryann-wound Skin Appearance) Hemosiderin Staining -Temperature (Maryann-wound Skin No Abnormality Appearance) (Pt Warm) -Tenderness on Palpation (Maryann-wound No Skin Appearance) -Ulcer Cleansing Soap and Water -Foul Odor after Cleansing No -Anesthetic Used 5% Lidocaine Gel Lower Limb Edema Present Right Calf (cm) 37 Point of measurement (cm from the medial instep) Right Ankle (cm) 22.5 Point of Measurement (cm from the medial instep) Left Calf (cm) 35.5 Left Ankle (cm) 22.3 WC - Nurse 2 - General Ulcer CM Notes Start: 10/27/22 13:14 Freq: Status: Active Protocol: Activity Type Activity Date Activity User E-sign Co-sign Detail Recorded Client Recorded Date Recorded By Document 10/27/22 13:35 KATELYNN [id number] 10/27/22 13:43 JF Document 11/03/22 14:29 PL [id number] 11/03/22 14:33 PL Document 11/10/22 13:23 PL [id number] 11/10/22 13:25 PL 10/27/22 11/03/22 11/10/22 13:35 14:29 13:23 Wound Center Nurse 2 #4- L LAT SANCHEZ CLUSTER -Correct Patient No -Correct Side, Site, Position No -Correct Procedure No -Procedure Performed No -Post Debridement (cm) - Length 0 -Post Debridement (cm) - Width 0 -Post Debridement (cm) - Depth 0 -Total Square (Post) (cm) 0 -Area of Debridement (cm) - Length 0 -Area of Debridement (cm) - Width 0 -Total Square (Area) (cm) 0 -Wound/Ulcer Outcome Healed- Epithelialized #2- R MED CALF -Time 13:40 11:03 -Correct Patient Yes Yes -Correct Side, Site, Position Yes Yes -Correct Procedure Yes Yes -Procedure Performed Yes Yes -Type of Procedure Debridement Debridement -Clinical Debridement Subcutaneous Subcutaneous -Tissue Removed Subcutaneous Subcutaneous -Post Debridement (cm) - Length 3.6 3.0 -Post Debridement (cm) - Width 1.7 2.0 -Post Debridement (cm) - Depth 0.1 0.1 -Total Square (Post) (cm) 6.12 6.00 -Area of Debridement (cm) - Length 3.6 3.0 -Area of Debridement (cm) - Width 1.7 2.0 -Total Square (Area) (cm) 6.12 6.00 -Tunneling No No -Undermining/Tunneling No No -Circular Undermining No No -Wound/Ulcer Outcome Not Healed Not Healed -Ulcer Cleansing Rinsed/ Rinsed/ Irrigated with Irrigated with Saline Saline -Foul Odor after Cleansing No No -Bioengineered Tissue No No -Bleeding Controlled with Pressure Pressure -Treatment Response Procedure Procedure Tolerated Well Tolerated Well -Offloading No -Debridement - Subq, 1st 20sq cm Yes No -Debridement, SubQ, ea addt'l 20sq cm 1 or part thereof #5- L LAT POST LE -Time 13:36 11:03 11:07 -Correct Patient Yes Yes Yes -Correct Side, Site, Position Yes Yes Yes -Correct Procedure Yes Yes Yes -Procedure Performed Yes Yes Yes -Type of Procedure Debridement Debridement Debridement -Clinical Debridement Subcutaneous Subcutaneous Subcutaneous -Tissue Removed Subcutaneous Subcutaneous Subcutaneous -Post Debridement (cm) - Length 3.3 2.6 2.3 -Post Debridement (cm) - Width 3 1.1 1.0 -Post Debridement (cm) - Depth 0.1 0.1 0.1 -Total Square (Post) (cm) 9.9 2.86 2.30 -Area of Debridement (cm) - Length 3.3 2.6 2.3 -Area of Debridement (cm) - Width 3.0 1.1 1.0 -Total Square (Area) (cm) 9.90 2.86 2.30 -Tunneling No No No -Undermining/Tunneling No No No -Circular Undermining No No No -Wound/Ulcer Outcome Not Healed Not Healed Not Healed -Ulcer Cleansing Rinsed/ Rinsed/ Rinsed/ Irrigated with Irrigated with Irrigated with Saline Saline Saline -Foul Odor after Cleansing No No No -Bioengineered Tissue No No No -Bleeding Controlled with Pressure Pressure Pressure -Treatment Response Procedure Procedure Procedure Tolerated Well Tolerated Well Tolerated Well -Offloading No -Debridement - Subq, 1st 20sq cm No No No #3- R CALF CLUSTER -Time 13:39 11:03 11:07 -Correct Patient Yes Yes Yes -Correct Side, Site, Position Yes Yes Yes -Correct Procedure Yes Yes Yes -Procedure Performed Yes Yes Yes -Type of Procedure Debridement Debridement Debridement -Clinical Debridement Subcutaneous Subcutaneous Subcutaneous -Tissue Removed Subcutaneous Subcutaneous Subcutaneous -Post Debridement (cm) - Length 3.9 2.7 3.0 -Post Debridement (cm) - Width 2.7 1.7 1.4 -Post Debridement (cm) - Depth 0.1 0.1 0.1 -Total Square (Post) (cm) 10.53 4.59 4.20 -Area of Debridement (cm) - Length 3.9 2.7 3.0 -Area of Debridement (cm) - Width 2.7 1.7 1.4 -Total Square (Area) (cm) 10.53 4.59 4.20 -Tunneling No No No -Undermining/Tunneling No No No -Circular Undermining No No No -Wound/Ulcer Outcome Not Healed Not Healed Not Healed -Ulcer Cleansing Rinsed/ Rinsed/ Rinsed/ Irrigated with Irrigated with Irrigated with Saline Saline Saline -Foul Odor after Cleansing No No No -Bioengineered Tissue No No No -Bleeding Controlled with Pressure Pressure Pressure -Treatment Response Procedure Procedure Procedure Tolerated Well Tolerated Well Tolerated Well -Offloading No -Debridement - Subq, 1st 20sq cm No Yes Yes Pain Scale: 0-10 Numeric Is Patient Pain Free? Yes Yes Yes WC - Nurse 3 - General Ulcer D/C NN Start: 10/27/22 13:14 Freq: Status: Active Protocol: Activity Type Activity Date Activity User E-sign Co-sign Detail Recorded Client Recorded Date Recorded By Document 10/27/22 14:24 JF [id number] 10/27/22 14:26 JF Document 10/31/22 13:23 MW [id number] 10/31/22 13:28 MW Document 11/03/22 14:50 PL [id number] 11/03/22 14:52 PL Document 11/10/22 13:23 PL [id number] 11/10/22 13:25 PL Edit Result 11/10/22 13:23 PL (1) [id number] 11/10/22 13:27 PL (1) #5- L LAT POST LE - Ulcer Cleansing => Rinsed/Irrigated => with Saline - Foul Odor after Cleansing => No - Primary Dressing Applied => Aquacel Extra - Primary Dressing Covered/Secured with => Dry Gauze - Aquacel Extra => 1 #3- R CALF CLUSTER - Ulcer Cleansing => Rinsed/Irrigated => with Saline - Foul Odor after Cleansing => No Bilateral LE - Multi-Layered Wrap Application => Multi-Layer Comp - => Bilat ($) Discharge Condition => Stable Ambulatory Status => Wheelchair Transportation => Private Auto 10/27/22 10/31/22 11/03/22 14:24 13:23 14:50 Wound Care Center Nurse 3 #2- R MED CALF -Ulcer Cleansing Rinsed/ Soap and Water Rinsed/ Irrigated with Irrigated with Saline Saline -Foul Odor after Cleansing No No No -Negative Pressure Wound Therapy N/A -Primary Dressing Applied Aquacel Extra Aquacel Extra -Other Dressing abd aquacel extra -Other Covering abd pad -Aquacel Extra 0 1 #5- L LAT POST LE -Ulcer Cleansing Rinsed/ Soap and Water Rinsed/ Irrigated with Irrigated with Saline Saline -Foul Odor after Cleansing No No No -Negative Pressure Wound Therapy N/A -Primary Dressing Applied Aquacel Extra Aquacel Extra Aquacel Extra -Other Dressing abd -Primary Dressing Covered/Secured with -Other Covering abd pad -Aquacel Extra 1 1 1 #3- R CALF CLUSTER -Ulcer Cleansing Rinsed/ Soap and Water Rinsed/ Irrigated with Irrigated with Saline Saline -Foul Odor after Cleansing No No No -Negative Pressure Wound Therapy N/A -Primary Dressing Applied Aquacel Extra Aquacel Extra -Other Dressing abd aquacel extra -Other Covering abd pad -Aquacel Extra 0 1 Maryann-Wound Care Cream Bilateral LE -Lotion applied to leg before Yes compression wrap -Multi-Layered Wrap Application Multi-Layer Multi-Layer Comp - Bilat ($ Comp - Bilat ($ ) ) Left -Multi-Layered Wrap Application Multi-Layer Comp - Bilat ($ ) Treatment Response Procedure Tolerated Well Vital Signs Temperature (97.8 F-99.1 F) 96.1 F L Temperature Source Temporal Pulse Rate (60-100) 77 Pulse Location Monitor Respiratory Rate (12-18) 20 H Respiratory rate source Observation Oxygen Delivery Method Room Air Blood Pressure (90/60-120/80) 172/74 H Blood Pressure Mean (mm Hg) 106 Source Monitor Position Sitting Blood Pressure Location Left Forearm Pain Scale: 0-10 Numeric Is Patient Pain Free? Yes Yes Yes WC - Visit Discharge Discharge Condition Stable Stable Stable Ambulatory Status Ambulatory, Ambulatory, Ambulatory, Walker Walker Walker Transportation Private Auto transportation Accompanied by self Medication Reconcilliation completed & Yes No provided to patient/care provider Clinical Summary of Care Provided Yes Yes 11/10/22 13:23 Wound Care Center Nurse 3 #2- R MED CALF -Ulcer Cleansing -Foul Odor after Cleansing -Negative Pressure Wound Therapy -Primary Dressing Applied -Other Dressing -Other Covering -Aquacel Extra #5- L LAT POST LE -Ulcer Cleansing Rinsed/ Irrigated with Saline -Foul Odor after Cleansing No -Negative Pressure Wound Therapy -Primary Dressing Applied Aquacel Extra -Other Dressing -Primary Dressing Covered/Secured with Dry Gauze -Other Covering -Aquacel Extra 1 #3- R CALF CLUSTER -Ulcer Cleansing Rinsed/ Irrigated with Saline -Foul Odor after Cleansing No -Negative Pressure Wound Therapy -Primary Dressing Applied -Other Dressing -Other Covering -Aquacel Extra Maryann-Wound Care Bilateral LE -Lotion applied to leg before compression wrap -Multi-Layered Wrap Application Multi-Layer Comp - Bilat ($ ) Left -Multi-Layered Wrap Application Treatment Response Vital Signs Temperature (97.8 F-99.1 F) Temperature Source Pulse Rate (60-100) Pulse Location Respiratory Rate (12-18) Respiratory rate source Oxygen Delivery Method Blood Pressure (90/60-120/80) Blood Pressure Mean (mm Hg) Source Position Blood Pressure Location Pain Scale: 0-10 Numeric Is Patient Pain Free? Yes WC - Visit Discharge Discharge Condition Stable Ambulatory Status Wheelchair Transportation Private Auto Accompanied by Medication Reconcilliation completed & provided to patient/care provider Clinical Summary of Care Provided Additional Wound Wound debrided: R posterior calf cluster Laterality: Right Type of Debridement: Excisional debridement Anesthesia Used: 5% Lidocaine Gel Depth: Down to and including healthy tissue and in the subcutaneous layer Percentage of wound debrided: 100 Instrument Used: 5mm curette Tissue Removed: slough, devitalized tissue Severity: Limited To Skin Breakdown Amount of bleeding with debridement: Mild Bleeding Controlled with: Pressure Patient tolerated procedure: Patient tolerated procedure well Additional Wound Wound debrided: R medial calf Laterality: Right Type of Debridement: Excisional debridement Anesthesia Used: 5% Lidocaine Gel Depth: Down to and including healthy tissue Percentage of wound debrided: 100 Instrument Used: 5mm curette Tissue Removed: slough, devitalized Severity: Limited To Skin Breakdown Amount of bleeding with debridement: Mild Bleeding Controlled with: Pressure Patient tolerated procedure: Patient tolerated procedure well Assessment/Plan Assessment/Plan (1) Non-pressure chronic ulcer of right calf with fat layer exposed: CODE(S): L97.212 - Non-pressure chronic ulcer of right calf with fat layer exposed (2) Non-pressure chronic ulcer of right calf limited to breakdown of skin: CODE(S): L97.211 - Non-pressure chronic ulcer of right calf limited to breakdown of skin (3) Non-pressure chronic ulcer of left calf limited to breakdown of skin: CODE(S): L97.221 - 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 Wounds continue to decrease in size. Continue Aquacel extra covered with super absorber. 3M wraps for compression. Continue to elevate legs. No signs/symptoms of infection. Follow-up in the [facility] in 1-2 weeks.
[2022-11-17 11:22] VITALS: BP 144/81; PULSE 73; RESP 18; BMI 38.2
== END 2022-11-17 23:59 | disposition home or self-care (01) ==
LOC: WC 11:15
PROVIDERS: PCP Family Medicine; Referring Provider Family Medicine; Visit Provider Physician Assistant
DX: L97.221 Non-pressure chronic ulcer of left calf limited to breakdown of skin (principal); L97.212 Non-pressure chronic ulcer of right calf with fat layer exposed; R60.0 Localized edema; S02.2XXD Fracture of nasal bones, subsequent encounter for fracture with routine healing; W19.XXXD Unspecified fall, subsequent encounter; Z79.899 Other long term (current) drug therapy
CPT/HCPCS: 11042; 11045; 29581

== ENCOUNTER → 2022-11-24 | Outpatient (REF) | payer MEDICARE, SELFPAY ==
[2022-11-24 08:43] LABS: Anion Gap 8 (5-15); BUN 27 mg/dL (7-18); BUN/Creat Ratio 28.8 RATIO (10-20); Calcium,Total 9.4 mg/dL (8.5-10.1); Chloride 101 mmol/L (98-107); Creatinine, Serum 0.94 mg/dL (0.55-1.02); EST Glomerular Filtration Rate 61 mL/min (>60); Est Glom Filt Rate - Afr Amer 74 mL/min (>60); Glucose 281 mg/dL (74-106); Potassium 3.2 mmol/L (3.5-5.1); Sodium Level 139 mmol/L (136-145)
== END ==
LOC: OLS.BROOKB 05:00
PROVIDERS: PCP Family Medicine; Visit Provider Family Medicine
DX: I10 Essential (primary) hypertension (principal)
CPT/HCPCS: 36415; 80048

== ENCOUNTER 2022-12-15 10:00 | Outpatient (RCR) | payer MEDICARE, SELFPAY ==
[2022-11-18 01:26] VITALS: BP 144/81; PULSE 73; RESP 18; TEMP 36.3; BMI 38.2
--- NOTE | 2022-12-01 07:16 | PCM.WC.PN ---
History of Present Illness Date of Service: 12/01/22 Chief Complaint: BLE wounds History of Wound: Patient is an 81-year-old female who resides at [facility]. She is referred by facility for evaluation and management of bilateral lower extremity wounds which have been ongoing for several weeks. Patient is unaccompanied to her appointment today. She does appear to have some level of dementia and is somewhat confused at times so is a rather poor historian. Referral paperwork indicates that patient had lower extremity cellulitis about a month ago which was treated with p.o. antibiotics. Current wound treatment consists of cleansing with wound cleanser covering with Telfa and wrapping with Kerlix daily. She reports a lot of pain associated with the wounds, but denies this pain being present prior to the wounds appearing. Patient states she is not diabetic and by review of her medication list this appears to be accurate. She states she does not smoke. She reports that she has never had wounds like this in the past. She is ambulatory and denies claudication type symptoms. She does have bilateral lower extremity edema with some fluid-filled blisters and serous fluid draining from wounds. She tells me that she does not wear compression. She typically sleeps in a chair. Subjective Subjective BLE look great this week, edema remains very well controlled with 3M wraps. She reports she continues to do well with this compression, able to have the wraps changed at [facility] last week. No new or worsening pain, swelling, erythema, drainage of BLE. No new wounds. No N/V, F/C. Objective Data Objective Data Vital Signs: Vital Signs Temp Pulse Resp BP 97.4 F L 73 18 144/81 H 11/18/22 01:26 11/18/22 01:26 11/18/22 01:26 11/18/22 01:26 Weight: 196 lb Body Mass Index (BMI) 38.2 Charges/Coding Visit Charges Office Visits / Consults: 26526 OV L2 Est Procedures Integumentary 111xxx-113xx: 83143 Otilia subq tissue 20 sq cm/< Physical Exam Const alert, oriented x3 and no apparent distress Orientation / Consciousness: confused HEENT normocephalic, hearing grossly normal bilaterally, external ears normal and external nose normal Eyes EOMs intact bilaterally General Eye: normal appearance of both eyes Neck General: normal visual inspection and trachea midline Resp normal respiratory effort, normal air movement, no retractions and no use of accessory muscles Effort and Inspection: able to speak in complete sentences; Negative for stridor or audible wheezes Cardio Rate: regular rate Rhythm: regular rhythm Extremity Extremity Narrative: Bilateral lower extremity edema significantly improved from prior, no fluid-filled blisters and no erythema. No particularly prominent varicose veins. Pulses diminished to palpation with monophasic signals. Appropriate color and normal capillary refill. Skin Wounds: wounds noted Wound Narrative: Right posterior calf cluster healed. Right posteromedial calf wound with no slough, very superficial, significantly reduced in size. L posterior calf wound significantly reduced in size, superficial, no slough. Neuro oriented x3, CN's II-XII intact bilaterally, moves all extremities and no focal motor deficits Psych Appearance: grossly normal Attitude: calm Debridement Note Debridement Note Wound debrided: Left posterolateral lower leg Laterality: Left No debridement was completed: No debridement was completed today Post-Debridement Measurements and Additional Note: Post-Debridement Measurements/Treatment - Nurse 1 - General Ulcer Assessment Start: 10/27/22 13:14 Freq: Status: Active Protocol: STACIA Activity Type Activity Date Activity User E-sign Co-sign Detail Recorded Client Recorded Date Recorded By Document 10/27/22 13:14 KW [id number] 10/27/22 13:25 KW Document 10/31/22 13:23 MW [id number] 10/31/22 13:28 MW Document 11/03/22 13:32 AK [id number] 11/03/22 13:36 AK Document 11/10/22 10:50 DL [id number] 11/10/22 11:00 DL 10/27/22 10/31/22 11/03/22 13:14 13:23 13:32 - Today's Visit Information Type of service Follow-up Visit Nurse-only Follow-up Visit (Physician/TITLE ONE READING TEACHER Visit (Physician/TITLE ONE READING TEACHER ) ) Arrival Mode Walker Ambulatory, Ambulatory, Walker Walker Transfer Assistance None Accompanied by self Patient Identification Verified (Name & Yes No ) Patient Requires Transmission-Based No No Precautions Safety Precautions Fall Prevention Fall Prevention Height and Weight Body Mass Index (BMI) 38.2 38.2 38.2 BMI Classification Obese Obese Obese Vital Signs Temperature (97.8 F-99.1 F) 96.7 F L 96.1 F L Temperature Source Temporal Temporal Pulse Rate (60-100) 84 77 Pulse Location Monitor Monitor Respiratory Rate (12-18) 16 20 H Respiratory rate source Observation Oxygen Delivery Method Room Air Blood Pressure (90/60-120/80) 153/70 H 172/74 H 137/73 H Blood Pressure Mean (mm Hg) 97 106 94 Source Monitor Monitor Monitor Position Semi-Fowlers Sitting Blood Pressure Location Left Arm Left Forearm History Since Last Visit- (Skip if this is Patient's initial visit) Have you changed medications since your No No No last visit? Any new allergies or adverse reactions No No No Had a fall/change in ADL's that may No No No increase risk of falls Signs or symptoms of abuse and/or No No No neglect since last visit Have you been in the hospital since your No No No last visit? Has dressing in place as prescribed Yes Yes Yes Has compression in place as prescribed No Yes Yes Has offloadiing in place as prescribed N/A N/A N/A Experienced any changes in pain level or No No No management Left Footwear Regular Shoe Regular Shoe Regular Shoe Right Footwear Regular Shoe Regular Shoe Regular Shoe Pain Scale: 0-10 Numeric Is Patient Pain Free? Yes Yes No 11/10/22 10:50 WC - Today's Visit Information Type of service Follow-up Visit (Physician/TITLE ONE READING TEACHER ) Arrival Mode Ambulatory, Walker Transfer Assistance None Accompanied by Patient Identification Verified (Name & Yes ) Patient Requires Transmission-Based No Precautions Safety Precautions Height and Weight Body Mass Index (BMI) 38.2 BMI Classification Obese Vital Signs Temperature (97.8 F-99.1 F) 97.4 F L Temperature Source Temporal Pulse Rate (60-100) 74 Pulse Location Monitor Respiratory Rate (12-18) 22 H Respiratory rate source Observation Oxygen Delivery Method Blood Pressure (90/60-120/80) 177/81 H Blood Pressure Mean (mm Hg) 113 Source Monitor Position Blood Pressure Location History Since Last Visit- (Skip if this is Patient's initial visit) Have you changed medications since your No last visit? Any new allergies or adverse reactions No Had a fall/change in ADL's that may No increase risk of falls Signs or symptoms of abuse and/or No neglect since last visit Have you been in the hospital since your No last visit? Has dressing in place as prescribed Yes Has compression in place as prescribed Yes Has offloadiing in place as prescribed N/A Experienced any changes in pain level or No management Left Footwear Right Footwear Pain Scale: 0-10 Numeric Is Patient Pain Free? Yes WC - Nurse 1 - General Ulcer Measurement Start: 10/27/22 13:14 Freq: Status: Active Protocol: Activity Type Activity Date Activity User E-sign Co-sign Detail Recorded Client Recorded Date Recorded By Document 10/27/22 13:14 KW [id number] 10/27/22 13:25 KW Document 10/31/22 13:23 MW [id number] 10/31/22 13:28 MW Document 11/03/22 13:32 AK [id number] 11/03/22 13:36 AK Document 11/10/22 10:50 DL [id number] 11/10/22 11:00 DL 10/27/22 10/31/22 11/03/22 13:14 13:23 13:32 Wound Center Nurse 1 #4- L LAT SANCHEZ CLUSTER -Combined with other wound No -Current Size (cm) - Length 0 -Current Size (cm) - Width 0 -Current Size (cm) - Depth 0 -Total Square Cm 0 -Date of Last Picture (Recall this 10/27/22 field) -Photo Taken Yes -Epithelialization Large 67-100% -Tunneling No -Undermining/Tunneling No -Circular Undermining No -Granulation Amt Large (67-100%) -Granulation Quality Red -Slough/Fibrin Yes -Necrotic Tissue Type Adherent Slough -Structure Exposed N/A -Texture (Maryann-wound Skin Appearance) Assessed -Moisture (Maryann-wound Skin Appearance) Assessed,Dry/ Scaly -Color (Maryann-wound Skin Appearance) Assessed, Erythema -Ulcer Cleansing Soap and Water -Anesthetic Used 5% Lidocaine Gel #2- R MED CALF -Combined with other wound No No -Current Size (cm) - Length 2.7 3 -Current Size (cm) - Width 1.8 2 -Current Size (cm) - Depth 0.1 0.2 -Total Square Cm 4.86 6 -Date of Last Picture (Recall this 10/27/22 field) -Photo Taken Yes No -Epithelialization Large 67-100% -Tunneling No -Undermining/Tunneling No No -Circular Undermining No No -Change in Wound Grade/Stage No -Exudate Amt Medium -Exudate Type Serosanguineous -Wound Margin Distinct, Outline Attached -Granulation Amt Large (67-100%) Medium (34-66%) -Granulation Quality Red Red -Slough/Fibrin Yes Yes -Necrosis Amt Medium (34-66%) -Necrotic Tissue Type Adherent Slough Adherent Slough -Structure Exposed N/A N/A -Texture (Maryann-wound Skin Appearance) Assessed Assessed, No Abnormality, Localized Edema Assessed -Moisture (Maryann-wound Skin Appearance) Assessed,Dry/ Assessed,Dry/ Assessed, Scaly Scaly Weeping -Color (Maryann-wound Skin Appearance) Assessed, No Abnormality, No Abnormality, Erythema Assessed Assessed -Temperature (Maryann-wound Skin No Abnormality No Abnormality No Abnormality Appearance) (Pt Warm) (Pt Warm) (Pt Warm) -Tenderness on Palpation (Maryann-wound No No Skin Appearance) -Ulcer Cleansing Soap and Water Soap and Water Soap and Water -Foul Odor after Cleansing No No -Anesthetic Used 5% Lidocaine 5% Lidocaine Gel Gel #5- L LAT POST LE -Combined with other wound No No -Current Size (cm) - Length 3.4 2 -Current Size (cm) - Width 3.0 1 -Current Size (cm) - Depth 0.1 0.1 -Total Square Cm 10.20 2 -Date of Last Picture (Recall this 10/27/22 field) -Photo Taken Yes No -Epithelialization Large 67-100% -Tunneling No No -Undermining/Tunneling No No -Circular Undermining No No -Change in Wound Grade/Stage No -Exudate Amt Small -Exudate Type Serosanguineous -Wound Margin Distinct, Outline Attached -Granulation Amt Large (67-100%) Large (67-100%) -Granulation Quality Red [place] -Slough/Fibrin Yes Yes -Necrosis Amt Small (1-33%) -Necrotic Tissue Type Adherent Slough Adherent Slough -Structure Exposed N/A N/A -Texture (Maryann-wound Skin Appearance) Assessed Assessed, No Abnormality, Localized Edema Assessed -Moisture (Maryann-wound Skin Appearance) Dry/Scaly Assessed,Dry/ No Abnormality, Scaly Assessed -Color (Maryann-wound Skin Appearance) Assessed, No Abnormality, No Abnormality, Erythema Assessed Assessed -Temperature (Maryann-wound Skin No Abnormality No Abnormality Appearance) (Pt Warm) (Pt Warm) -Tenderness on Palpation (Maryann-wound No No Skin Appearance) -Ulcer Cleansing Soap and Water Soap and Water -Foul Odor after Cleansing No No -Anesthetic Used 5% Lidocaine 4% Lidocaine Gel Solution #3- R CALF CLUSTER -Combined with other wound No No -Current Size (cm) - Length 3.1 3 -Current Size (cm) - Width 2.0 1.8 -Current Size (cm) - Depth 0.1 0.2 -Total Square Cm 6.20 5.4 -Date of Last Picture (Recall this 10/27/22 field) -Photo Taken Yes No -Epithelialization Large 67-100% -Tunneling No No -Undermining/Tunneling No No -Circular Undermining No No -Change in Wound Grade/Stage No -Exudate Amt Large -Exudate Type Serosanguineous -Wound Margin Distinct, Outline Attached -Granulation Amt Large (67-100%) Large (67-100%) -Granulation Quality Red Red -Slough/Fibrin Yes Yes -Necrosis Amt Small (1-33%) -Necrotic Tissue Type Adherent Slough -Structure Exposed N/A -Texture (Maryann-wound Skin Appearance) Assessed Assessed, No Abnormality, Localized Edema Assessed -Moisture (Maryann-wound Skin Appearance) Assessed,Dry/ Assessed,Dry/ No Abnormality, Scaly Scaly Assessed -Color (Maryann-wound Skin Appearance) Assessed, No Abnormality, No Abnormality, Erythema Assessed Assessed -Temperature (Maryann-wound Skin No Abnormality No Abnormality Appearance) (Pt Warm) (Pt Warm) -Tenderness on Palpation (Maryann-wound No No Skin Appearance) -Ulcer Cleansing Soap and Water Soap and Water Soap and Water -Foul Odor after Cleansing No No -Anesthetic Used 5% Lidocaine 5% Lidocaine Gel Gel Lower Limb Edema Present Yes Yes Right Calf (cm) 43.5 39.3 Point of measurement (cm from the medial 37 instep) Right Ankle (cm) 22.8 23.0 Point of Measurement (cm from the medial 22 instep) Left Calf (cm) 42.5 37.5 37 Left Ankle (cm) 23.3 23.0 23 11/10/22 10:50 Wound Center Nurse 1 #4- L LAT SANCHEZ CLUSTER -Combined with other wound -Current Size (cm) - Length -Current Size (cm) - Width -Current Size (cm) - Depth -Total Square Cm -Date of Last Picture (Recall this field) -Photo Taken -Epithelialization -Tunneling -Undermining/Tunneling -Circular Undermining -Granulation Amt -Granulation Quality -Slough/Fibrin -Necrotic Tissue Type -Structure Exposed -Texture (Maryann-wound Skin Appearance) -Moisture (Maryann-wound Skin Appearance) -Color (Maryann-wound Skin Appearance) -Ulcer Cleansing -Anesthetic Used #2- R MED CALF -Combined with other wound -Current Size (cm) - Length -Current Size (cm) - Width -Current Size (cm) - Depth -Total Square Cm -Date of Last Picture (Recall this field) -Photo Taken -Epithelialization -Tunneling -Undermining/Tunneling -Circular Undermining -Change in Wound Grade/Stage -Exudate Amt -Exudate Type -Wound Margin -Granulation Amt -Granulation Quality -Slough/Fibrin -Necrosis Amt -Necrotic Tissue Type -Structure Exposed -Texture (Maryann-wound Skin Appearance) -Moisture (Maryann-wound Skin Appearance) -Color (Maryann-wound Skin Appearance) -Temperature (Maryann-wound Skin Appearance) -Tenderness on Palpation (Maryann-wound Skin Appearance) -Ulcer Cleansing -Foul Odor after Cleansing -Anesthetic Used #5- L LAT POST LE -Combined with other wound -Current Size (cm) - Length 1.7 -Current Size (cm) - Width 0.7 -Current Size (cm) - Depth 0.1 -Total Square Cm 1.19 -Date of Last Picture (Recall this field) -Photo Taken No -Epithelialization -Tunneling -Undermining/Tunneling -Circular Undermining -Change in Wound Grade/Stage -Exudate Amt Medium -Exudate Type Serosanguineous -Wound Margin Distinct, Outline Attached -Granulation Amt Large (67-100%) -Granulation Quality [place] -Slough/Fibrin -Necrosis Amt Small (1-33%) -Necrotic Tissue Type Adherent Slough -Structure Exposed N/A -Texture (Maryann-wound Skin Appearance) Scarring -Moisture (Maryann-wound Skin Appearance) Dry/Scaly -Color (Maryann-wound Skin Appearance) Hemosiderin Staining -Temperature (Maryann-wound Skin No Abnormality Appearance) (Pt Warm) -Tenderness on Palpation (Maryann-wound No Skin Appearance) -Ulcer Cleansing Not Cleansed -Foul Odor after Cleansing No -Anesthetic Used 5% Lidocaine Gel #3- R CALF CLUSTER -Combined with other wound -Current Size (cm) - Length 3.5 -Current Size (cm) - Width 5.3 -Current Size (cm) - Depth 0.2 -Total Square Cm 18.55 -Date of Last Picture (Recall this field) -Photo Taken -Epithelialization -Tunneling -Undermining/Tunneling -Circular Undermining -Change in Wound Grade/Stage -Exudate Amt Medium -Exudate Type Serosanguineous -Wound Margin Distinct, Outline Attached -Granulation Amt Large (67-100%) -Granulation Quality Red -Slough/Fibrin -Necrosis Amt Small (1-33%) -Necrotic Tissue Type Adherent Slough -Structure Exposed N/A -Texture (Maryann-wound Skin Appearance) Scarring -Moisture (Maryann-wound Skin Appearance) Dry/Scaly -Color (Maryann-wound Skin Appearance) Hemosiderin Staining -Temperature (Maryann-wound Skin No Abnormality Appearance) (Pt Warm) -Tenderness on Palpation (Maryann-wound No Skin Appearance) -Ulcer Cleansing Soap and Water -Foul Odor after Cleansing No -Anesthetic Used 5% Lidocaine Gel Lower Limb Edema Present Right Calf (cm) 37 Point of measurement (cm from the medial instep) Right Ankle (cm) 22.5 Point of Measurement (cm from the medial instep) Left Calf (cm) 35.5 Left Ankle (cm) 22.3 WC - Nurse 2 - General Ulcer CM Notes Start: 10/27/22 13:14 Freq: Status: Active Protocol: Activity Type Activity Date Activity User E-sign Co-sign Detail Recorded Client Recorded Date Recorded By Document 10/27/22 13:35 [id number] 10/27/22 13:43 Document 11/03/22 14:29 PL [id number] 11/03/22 14:33 PL Document 11/10/22 13:23 PL [id number] 11/10/22 13:25 PL 10/27/22 11/03/22 11/10/22 13:35 14:29 13:23 Wound Center Nurse 2 #4- L LAT SANCHEZ CLUSTER -Correct Patient No -Correct Side, Site, Position No -Correct Procedure No -Procedure Performed No -Post Debridement (cm) - Length 0 -Post Debridement (cm) - Width 0 -Post Debridement (cm) - Depth 0 -Total Square (Post) (cm) 0 -Area of Debridement (cm) - Length 0 -Area of Debridement (cm) - Width 0 -Total Square (Area) (cm) 0 -Wound/Ulcer Outcome Healed- Epithelialized #2- R MED CALF -Time 13:40 11:03 -Correct Patient Yes Yes -Correct Side, Site, Position Yes Yes -Correct Procedure Yes Yes -Procedure Performed Yes Yes -Type of Procedure Debridement Debridement -Clinical Debridement Subcutaneous Subcutaneous -Tissue Removed Subcutaneous Subcutaneous -Post Debridement (cm) - Length 3.6 3.0 -Post Debridement (cm) - Width 1.7 2.0 -Post Debridement (cm) - Depth 0.1 0.1 -Total Square (Post) (cm) 6.12 6.00 -Area of Debridement (cm) - Length 3.6 3.0 -Area of Debridement (cm) - Width 1.7 2.0 -Total Square (Area) (cm) 6.12 6.00 -Tunneling No No -Undermining/Tunneling No No -Circular Undermining No No -Wound/Ulcer Outcome Not Healed Not Healed -Ulcer Cleansing Rinsed/ Rinsed/ Irrigated with Irrigated with Saline Saline -Foul Odor after Cleansing No No -Bioengineered Tissue No No -Bleeding Controlled with Pressure Pressure -Treatment Response Procedure Procedure Tolerated Well Tolerated Well -Offloading No -Debridement - Subq, 1st 20sq cm Yes No -Debridement, SubQ, ea addt'l 20sq cm 1 or part thereof #5- L LAT POST LE -Time 13:36 11:03 11:07 -Correct Patient Yes Yes Yes -Correct Side, Site, Position Yes Yes Yes -Correct Procedure Yes Yes Yes -Procedure Performed Yes Yes Yes -Type of Procedure Debridement Debridement Debridement -Clinical Debridement Subcutaneous Subcutaneous Subcutaneous -Tissue Removed Subcutaneous Subcutaneous Subcutaneous -Post Debridement (cm) - Length 3.3 2.6 2.3 -Post Debridement (cm) - Width 3 1.1 1.0 -Post Debridement (cm) - Depth 0.1 0.1 0.1 -Total Square (Post) (cm) 9.9 2.86 2.30 -Area of Debridement (cm) - Length 3.3 2.6 2.3 -Area of Debridement (cm) - Width 3.0 1.1 1.0 -Total Square (Area) (cm) 9.90 2.86 2.30 -Tunneling No No No -Undermining/Tunneling No No No -Circular Undermining No No No -Wound/Ulcer Outcome Not Healed Not Healed Not Healed -Ulcer Cleansing Rinsed/ Rinsed/ Rinsed/ Irrigated with Irrigated with Irrigated with Saline Saline Saline -Foul Odor after Cleansing No No No -Bioengineered Tissue No No No -Bleeding Controlled with Pressure Pressure Pressure -Treatment Response Procedure Procedure Procedure Tolerated Well Tolerated Well Tolerated Well -Offloading No -Debridement - Subq, 1st 20sq cm No No No #3- R CALF CLUSTER -Time 13:39 11:03 11:07 -Correct Patient Yes Yes Yes -Correct Side, Site, Position Yes Yes Yes -Correct Procedure Yes Yes Yes -Procedure Performed Yes Yes Yes -Type of Procedure Debridement Debridement Debridement -Clinical Debridement Subcutaneous Subcutaneous Subcutaneous -Tissue Removed Subcutaneous Subcutaneous Subcutaneous -Post Debridement (cm) - Length 3.9 2.7 3.0 -Post Debridement (cm) - Width 2.7 1.7 1.4 -Post Debridement (cm) - Depth 0.1 0.1 0.1 -Total Square (Post) (cm) 10.53 4.59 4.20 -Area of Debridement (cm) - Length 3.9 2.7 3.0 -Area of Debridement (cm) - Width 2.7 1.7 1.4 -Total Square (Area) (cm) 10.53 4.59 4.20 -Tunneling No No No -Undermining/Tunneling No No No -Circular Undermining No No No -Wound/Ulcer Outcome Not Healed Not Healed Not Healed -Ulcer Cleansing Rinsed/ Rinsed/ Rinsed/ Irrigated with Irrigated with Irrigated with Saline Saline Saline -Foul Odor after Cleansing No No No -Bioengineered Tissue No No No -Bleeding Controlled with Pressure Pressure Pressure -Treatment Response Procedure Procedure Procedure Tolerated Well Tolerated Well Tolerated Well -Offloading No -Debridement - Subq, 1st 20sq cm No Yes Yes Pain Scale: 0-10 Numeric Is Patient Pain Free? Yes Yes Yes WC - Nurse 3 - General Ulcer D/C NN Start: 10/27/22 13:14 Freq: Status: Active Protocol: Activity Type Activity Date Activity User E-sign Co-sign Detail Recorded Client Recorded Date Recorded By Document 10/27/22 14:24 [id number] 10/27/22 14:26 JF Document 10/31/22 13:23 MW [id number] 10/31/22 13:28 MW Document 11/03/22 14:50 PL [id number] 11/03/22 14:52 PL Document 11/10/22 13:23 PL [id number] 11/10/22 13:25 PL Edit Result 11/10/22 13:23 PL (1) [id number] 11/10/22 13:27 PL (1) #5- L LAT POST LE - Ulcer Cleansing => Rinsed/Irrigated => with Saline - Foul Odor after Cleansing => No - Primary Dressing Applied => Aquacel Extra - Primary Dressing Covered/Secured with => Dry Gauze - Aquacel Extra => 1 #3- R CALF CLUSTER - Ulcer Cleansing => Rinsed/Irrigated => with Saline - Foul Odor after Cleansing => No Bilateral LE - Multi-Layered Wrap Application => Multi-Layer Comp - => Bilat ($) Discharge Condition => Stable Ambulatory Status => Wheelchair Transportation => Private Auto 10/27/22 10/31/22 11/03/22 14:24 13:23 14:50 Wound Care Center Nurse 3 #2- R MED CALF -Ulcer Cleansing Rinsed/ Soap and Water Rinsed/ Irrigated with Irrigated with Saline Saline -Foul Odor after Cleansing No No No -Negative Pressure Wound Therapy N/A -Primary Dressing Applied Aquacel Extra Aquacel Extra -Other Dressing abd aquacel extra -Other Covering abd pad -Aquacel Extra 0 1 #5- L LAT POST LE -Ulcer Cleansing Rinsed/ Soap and Water Rinsed/ Irrigated with Irrigated with Saline Saline -Foul Odor after Cleansing No No No -Negative Pressure Wound Therapy N/A -Primary Dressing Applied Aquacel Extra Aquacel Extra Aquacel Extra -Other Dressing abd -Primary Dressing Covered/Secured with -Other Covering abd pad -Aquacel Extra 1 1 1 #3- R CALF CLUSTER -Ulcer Cleansing Rinsed/ Soap and Water Rinsed/ Irrigated with Irrigated with Saline Saline -Foul Odor after Cleansing No No No -Negative Pressure Wound Therapy N/A -Primary Dressing Applied Aquacel Extra Aquacel Extra -Other Dressing abd aquacel extra -Other Covering abd pad -Aquacel Extra 0 1 Maryann-Wound Care Cream Bilateral LE -Lotion applied to leg before Yes compression wrap -Multi-Layered Wrap Application Multi-Layer Multi-Layer Comp - Bilat ($ Comp - Bilat ($ ) ) Left -Multi-Layered Wrap Application Multi-Layer Comp - Bilat ($ ) Treatment Response Procedure Tolerated Well Vital Signs Temperature (97.8 F-99.1 F) 96.1 F L Temperature Source Temporal Pulse Rate (60-100) 77 Pulse Location Monitor Respiratory Rate (12-18) 20 H Respiratory rate source Observation Oxygen Delivery Method Room Air Blood Pressure (90/60-120/80) 172/74 H Blood Pressure Mean (mm Hg) 106 Source Monitor Position Sitting Blood Pressure Location Left Forearm Pain Scale: 0-10 Numeric Is Patient Pain Free? Yes Yes Yes WC - Visit Discharge Discharge Condition Stable Stable Stable Ambulatory Status Ambulatory, Ambulatory, Ambulatory, Walker Walker Walker Transportation Private Auto transportation Accompanied by self Medication Reconcilliation completed & Yes No provided to patient/care provider Clinical Summary of Care Provided Yes Yes 11/10/22 13:23 Wound Care Center Nurse 3 #2- R MED CALF -Ulcer Cleansing -Foul Odor after Cleansing -Negative Pressure Wound Therapy -Primary Dressing Applied -Other Dressing -Other Covering -Aquacel Extra #5- L LAT POST LE -Ulcer Cleansing Rinsed/ Irrigated with Saline -Foul Odor after Cleansing No -Negative Pressure Wound Therapy -Primary Dressing Applied Aquacel Extra -Other Dressing -Primary Dressing Covered/Secured with Dry Gauze -Other Covering -Aquacel Extra 1 #3- R CALF CLUSTER -Ulcer Cleansing Rinsed/ Irrigated with Saline -Foul Odor after Cleansing No -Negative Pressure Wound Therapy -Primary Dressing Applied -Other Dressing -Other Covering -Aquacel Extra Maryann-Wound Care Bilateral LE -Lotion applied to leg before compression wrap -Multi-Layered Wrap Application Multi-Layer Comp - Bilat ($ ) Left -Multi-Layered Wrap Application Treatment Response Vital Signs Temperature (97.8 F-99.1 F) Temperature Source Pulse Rate (60-100) Pulse Location Respiratory Rate (12-18) Respiratory rate source Oxygen Delivery Method Blood Pressure (90/60-120/80) Blood Pressure Mean (mm Hg) Source Position Blood Pressure Location Pain Scale: 0-10 Numeric Is Patient Pain Free? 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 Wounds are without slough, pink granulation tissue at the bases. Both are significantly reduced in size. L posterior cluster is healed. Edema remains significantly improved and overall skin integrity improved with compression. Continue Aquacel extra to the wound bases. 3M wraps for compression. Continue to elevate legs. No signs/symptoms of infection. Anticipate she will be healed by next appointment. Will plan to provide with prescription for compression stockings at that time. Follow-up in the [facility] in 2 weeks.
[2022-12-01 10:53] VITALS: BP 159/76; PULSE 68; TEMP 36.6; BMI 38.2
[2022-12-15 10:05] VITALS: BMI 38.2
--- NOTE | 2022-12-15 10:57 | PCM.WC.PN ---
History of Present Illness Date of Service: 12/15/22 Chief Complaint: BLE wounds History of Wound: Patient is an 81-year-old female who resides at [facility]. She is referred by facility for evaluation and management of bilateral lower extremity wounds which have been ongoing for several weeks. Patient is unaccompanied to her appointment today. She does appear to have some level of dementia and is somewhat confused at times so is a rather poor historian. Referral paperwork indicates that patient had lower extremity cellulitis about a month ago which was treated with p.o. antibiotics. Current wound treatment consists of cleansing with wound cleanser covering with Telfa and wrapping with Kerlix daily. She reports a lot of pain associated with the wounds, but denies this pain being present prior to the wounds appearing. Patient states she is not diabetic and by review of her medication list this appears to be accurate. She states she does not smoke. She reports that she has never had wounds like this in the past. She is ambulatory and denies claudication type symptoms. She does have bilateral lower extremity edema with some fluid-filled blisters and serous fluid draining from wounds. She tells me that she does not wear compression. She typically sleeps in a chair. Subjective Subjective She is doing well. No new or worsening pain, redness, swelling, weeping. No new wounds. Objective Data Objective Data Vital Signs: Vital Signs Temp Pulse Resp BP 97.9 F 68 18 159/76 H 12/01/22 10:53 12/01/22 10:53 11/18/22 01:26 12/01/22 10:53 Weight: 196 lb Body Mass Index (BMI) 38.2 Charges/Coding Visit Charges Office Visits / Consults: 81168 OV L2 Est Physical Exam Const alert, oriented x3 and no apparent distress Orientation / Consciousness: confused HEENT normocephalic, hearing grossly normal bilaterally, external ears normal and external nose normal Eyes EOMs intact bilaterally General Eye: normal appearance of both eyes Neck General: normal visual inspection and trachea midline Resp normal respiratory effort, normal air movement, no retractions and no use of accessory muscles Effort and Inspection: able to speak in complete sentences; Negative for stridor or audible wheezes Cardio Rate: regular rate Rhythm: regular rhythm Extremity Extremity Narrative: Bilateral lower extremity edema significantly improved from prior, no fluid-filled blisters and no erythema. No particularly prominent varicose veins. Pulses diminished to palpation with monophasic signals. Appropriate color and normal capillary refill. Skin Wounds: wounds noted Wound Narrative: Right posterior calf cluster healed. Right posteromedial calf wound with no slough, very superficial, significantly reduced in size. L posterior calf wound significantly reduced in size, superficial, no slough. Neuro oriented x3, CN's II-XII intact bilaterally, moves all extremities and no focal motor deficits Psych Appearance: grossly normal Attitude: calm Debridement Note Debridement Note Patient tolerated procedure: Patient tolerated procedure well Post-Debridement Measurements and Additional Note: Post-Debridement Measurements/Treatment - Nurse 1 - General Ulcer Assessment Start: 12/01/22 10:53 Freq: Status: Active Protocol: CARYN Activity Type Activity Date Activity User E-sign Co-sign Detail Recorded Client Recorded Date Recorded By Document 12/01/22 10:53 [id number] 12/01/22 11:02 Document 12/15/22 10:05 [facility] [id number] 12/15/22 10:19 [facility] 12/01/22 12/15/22 10:53 10:05 - Today's Visit Information Type of service Follow-up Visit (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/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 STOREKEEPER ) Arrival Mode Ambulatory, Walker Patient Identification Verified (Name & Yes ) Patient Requires Transmission-Based No Precautions Height and Weight Body Mass Index (BMI) 38.2 38.2 BMI Classification Obese Obese Vital Signs Temperature (97.8 F-99.1 F) 97.9 F Temperature Source Temporal Pulse Rate (60-100) 68 Pulse Location Monitor Blood Pressure (90/60-120/80) 159/76 H Blood Pressure Mean (mm Hg) 103 Source Monitor Position Semi-Fowlers Blood Pressure Location Right Forearm History Since Last Visit- (Skip if this is Patient's initial visit) Have you changed medications since your No last visit? Any new allergies or adverse reactions No Had a fall/change in ADL's that may No increase risk of falls Signs or symptoms of abuse and/or No neglect since last visit Have you been in the hospital since your No last visit? Has dressing in place as prescribed Yes Has compression in place as prescribed Yes Has offloadiing in place as prescribed Yes Left Footwear Regular Shoe Right Footwear Regular Shoe Pain Scale: 0-10 Numeric Is Patient Pain Free? Yes Yes - Nurse 1 - General Ulcer Measurement Start: 12/01/22 10:53 Freq: Status: Active Protocol: Activity Type Activity Date Activity User E-sign Co-sign Detail Recorded Client Recorded Date Recorded By Document 12/01/22 10:53 KW [id number] 12/01/22 11:02 KW Document 12/15/22 10:05 [facility] [id number] 12/15/22 10:19 BM 12/01/22 12/15/22 10:53 10:05 Wound Center Nurse 1 #5- L LAT POST LE -Combined with other wound No -Current Size (cm) - Length 2 -Current Size (cm) - Width 1 -Current Size (cm) - Depth 0.1 -Total Square Cm 2 -Date of Last Picture (Recall this 12/15/22 field) -Photo Taken Yes -Epithelialization Small 1-33% -Tunneling No -Undermining/Tunneling No -Circular Undermining No -Exudate Amt Small -Exudate Type Serosanguineous -Wound Margin Distinct, Outline Attached -Granulation Amt None Present (0 %) -Slough/Fibrin Yes -Necrosis Amt Large (67-100%) -Necrotic Tissue Type Eschar -Texture (Maryann-wound Skin Appearance) Assessed, Scarring -Moisture (Maryann-wound Skin Appearance) Assessed,Dry/ Scaly -Color (Maryann-wound Skin Appearance) Assessed -Temperature (Maryann-wound Skin No Abnormality Appearance) (Pt Warm) -Tenderness on Palpation (Maryann-wound No Skin Appearance) -Ulcer Cleansing Soap and Water Soap and Water -Foul Odor after Cleansing No -Anesthetic Used 5% Lidocaine 5% Lidocaine Gel Gel #3- R CALF CLUSTER -Texture (Maryann-wound Skin Appearance) Localized Edema -Moisture (Maryann-wound Skin Appearance) Dry/Scaly -Color (Maryann-wound Skin Appearance) Erythema -Ulcer Cleansing Soap and Water -Anesthetic Used 5% Lidocaine Gel #2- R MED CALF -Combined with other wound No -Current Size (cm) - Length 0.1 -Current Size (cm) - Width 0.1 -Current Size (cm) - Depth 0.1 -Total Square Cm 0.01 -Date of Last Picture (Recall this 12/15/22 field) -Photo Taken Yes -Epithelialization Large 67-100% -Texture (Maryann-wound Skin Appearance) Localized Edema Assessed -Moisture (Maryann-wound Skin Appearance) Dry/Scaly Assessed,Dry/ Scaly -Color (Maryann-wound Skin Appearance) Assessed, Assessed Erythema -Temperature (Maryann-wound Skin No Abnormality Appearance) (Pt Warm) -Tenderness on Palpation (Maryann-wound No Skin Appearance) -Ulcer Cleansing Soap and Water Soap and Water -Foul Odor after Cleansing No -Anesthetic Used 5% Lidocaine Gel Lower Limb Edema Present Yes Right Calf (cm) 44.1 39.2 Right Ankle (cm) 22.0 21.2 Left Calf (cm) 43.1 37.3 Left Ankle (cm) 22.5 21.3 WC - Nurse 2 - General Ulcer CM Notes Start: 12/01/22 10:53 Freq: Status: Active Protocol: Activity Type Activity Date Activity User E-sign Co-sign Detail Recorded Client Recorded Date Recorded By Document 12/01/22 11:52 PL [id number] 12/01/22 11:53 PL 12/01/22 11:52 Wound Center Nurse 2 #5- L LAT POST LE -Time 11:10 -Correct Patient Yes -Procedure Performed No -Post Debridement (cm) - Length 0.9 -Post Debridement (cm) - Width 0.7 -Post Debridement (cm) - Depth 0.1 -Total Square (Post) (cm) 0.63 #3- R CALF CLUSTER -Procedure Performed No -Wound/Ulcer Outcome Healed- Epithelialized #2- R MED CALF -Correct Patient Yes -Procedure Performed No -Post Debridement (cm) - Length 1.0 -Post Debridement (cm) - Width 0.9 -Post Debridement (cm) - Depth 0.1 -Total Square (Post) (cm) 0.90 -Wound/Ulcer Outcome Not Healed Pain Scale: 0-10 Numeric Is Patient Pain Free? Yes WC - Nurse 3 - General Ulcer D/C NN Start: 12/01/22 10:53 Freq: Status: Active Protocol: Activity Type Activity Date Activity User E-sign Co-sign Detail Recorded Client Recorded Date Recorded By Document 12/01/22 11:38 KW [id number] 12/01/22 11:40 KW Document 12/15/22 10:44 [facility] [id number] 12/15/22 10:45 BM 12/01/22 12/15/22 11:38 10:44 Wound Care Center Nurse 3 #5- L LAT POST LE -Ulcer Cleansing Rinsed/ Irrigated with Saline -Primary Dressing Applied Aquacel Extra -Primary Dressing Covered/Secured with Dry Gauze -Aquacel Extra 1 #3- R CALF CLUSTER -Ulcer Cleansing Rinsed/ Irrigated with Saline -Primary Dressing Covered/Secured with Dry Gauze #2- R MED CALF -Ulcer Cleansing Rinsed/ Irrigated with Saline -Primary Dressing Covered/Secured with Dry Gauze BLE -Multi-Layered Wrap Application Multi-Layer Comp - Bilat ($ ) -Tubular Bandage Single Layer -Size of Tubigrip Used Size D -Size D ($) 2 Treatment Response Procedure Tolerated Well Pain Scale: 0-10 Numeric Is Patient Pain Free? Yes Yes WC - Visit Discharge Discharge Condition Stable Stable Ambulatory Status Walker Ambulatory, Walker Transportation Private Auto ECF Medication Reconcilliation completed & No provided to patient/care provider Clinical Summary of Care Provided Yes Facility Type [facility] Assessment/Plan Assessment/Plan (1) Non-pressure chronic ulcer of right calf with fat layer exposed: CODE(S): L97.212 - Non-pressure chronic ulcer of right calf with fat layer exposed (2) Non-pressure chronic ulcer of right calf limited to breakdown of skin: CODE(S): L97.211 - Non-pressure chronic ulcer of right calf limited to breakdown of skin (3) Non-pressure chronic ulcer of left calf limited to breakdown of skin: CODE(S): L97.221 - Non-pressure chronic ulcer of left calf limited to breakdown of skin PLAN: Plan No debridement performed today. Bilateral wounds are healed. Swelling remains well controlled with compression. She was provided with prescription to obtain measured compression stockings. She was instructed to wear these daily, apply in the morning and remove at night. Managing her BLE edema will be very important in preventing recurrence of the wound. Additionally, it is important to support skin integrity and I advise application of a moisturizing lotion at least once daily. These instructions were also communicated to her facility. She is discharged from the wound healing center. Return as needed.
== END 2022-12-18 23:59 | disposition home or self-care (01) ==
LOC: WC 10:00
PROVIDERS: PCP Family Medicine; Referring Provider Family Medicine; Visit Provider Physician Assistant
DX: L97.211 Non-pressure chronic ulcer of right calf limited to breakdown of skin (principal); L97.221 Non-pressure chronic ulcer of left calf limited to breakdown of skin; F03.90 Unspecified dementia, unspecified severity, without behavioral disturbance, psychotic disturbance, mood disturbance, and anxiety; R60.0 Localized edema
CPT/HCPCS: 29581; 99213; G0463

== ENCOUNTER 2023-01-18 14:15 | Outpatient (RCR) | payer MEDICARE, SELFPAY ==
[2022-12-19 00:37] VITALS: BP 159/76; PULSE 68; RESP 18; TEMP 36.6; BMI 38.2
[2023-01-11 13:43] VITALS: BP 147/96; PULSE 85; RESP 20; TEMP 36.3; BMI 38.2
--- NOTE | 2023-01-12 13:29 | HP.PCM_ITS ---
History of Present Illness Date of Service: 01/12/23 Chief Complaint: BLE wounds History of Wound: Patient is an 81-year-old female who resides at [facility]. She is referred by facility for evaluation and management of bilateral lower extremity wounds which have been ongoing for a week or so. She is well known to me as I just discharged her from [facility] for similar wounds about 1 month ago. At that time, she had bilateral posterior calf wounds which had fully healed at time of discharge. She was instructed to wear measured compression stockings to prevent recurrence. She states she obtained the measured compression stockings, but they seemed too tight. Instead, she has been wearing the tubigrips she has accumulated. Unfortunately, she bumped the back of her legs a week or so ago and the wounds have recurred in almost the same location as last time. She is not diabetic. She does not smoke. She is ambulatory and denies claudication type symptoms. She does have bilateral lower extremity edema. Serous drainage from the wounds and scattered fluid-filled blisters on her lower legs. She does still sleep in a chair, but tries to elevate her feet on a footstool. Progress of Wound: Bilateral lower extremity wounds have granulation tissue at the base with significant slough, moderate serous drainage. [facility] Medical History (Updated 01/12/23 @ 13:44 by NARDA Abebe) Cellulitis and abscess of right leg CLL (chronic lymphocytic leukemia) Cognitive communication disorder Dementia Dementia with psychotic disturbance Glaucoma HTN (hypertension) Muscle weakness Obesity Home Medications acetaminophen 325 mg tablet 650 mg PO Q6H PRN Pain 09/15/22 [History Last Taken Unknown] bisacodyl 10 mg rectal suppository 10 mg OK DAILY PRN Constipation 09/15/22 [History Last Taken Unknown] furosemide 20 mg tablet 40 mg PO DAILY 09/15/22 [History Last Taken Unknown] hydroxyzine HCl 25 mg tablet 25 mg PO TID PRN ITCHING/ANXIETY 09/15/22 [History Last Taken Unknown] indapamide 2.5 mg tablet 2.5 mg PO DAILY 09/15/22 [History Last Taken Unknown] latanoprost 0.005 % eye drops 1 drp EACH EYE DAILY 09/15/22 [History Last Taken Unknown] nystatin 100,000 unit/gram topical powder 1 applic topical BID PRN Rash 09/15/22 [History Last Taken Unknown] ondansetron 4 mg disintegrating tablet 4 mg PO Q6H PRN Nausea 09/15/22 [History Last Taken Unknown] potassium chloride 20 mEq tablet,extended release 20 meq PO DAILY 09/15/22 [History Last Taken Unknown] sodium phosphates 19 gram-7 gram/118 mL enema (Fleet Enema) 118 ml OK DAILY PRN Constipation 09/15/22 [History Last Taken Unknown] venlafaxine 37.5 mg tablet 75 mg PO DAILY 09/15/22 [History Last Taken Unknown] Allergy/AdvReac Type Severity Reaction Status Date / Time timolol Allergy Other Verified 11/08/22 20:35 Social History Smoking Status: Never smoker Vital Signs Vital Signs Vital Signs: 01/11/23 13:43 Temperature 97.3 F L Temperature Source Temporal Pulse Rate 85 Respiratory Rate 20 H Blood Pressure 147/96 H Blood Pressure Mean 113 Blood Pressure Source Monitor Weight Weight: 196 lb Body Mass Index (BMI) 38.2 Physical Exam Const alert, oriented x3 and no apparent distress Orientation / Consciousness: confused HEENT normocephalic, hearing grossly normal bilaterally, external ears normal and external nose normal Eyes EOMs intact bilaterally General Eye: normal appearance of both eyes Neck General: normal visual inspection and trachea midline Resp normal respiratory effort, normal air movement, no retractions and no use of accessory muscles Effort and Inspection: able to speak in complete sentences; Negative for stridor or audible wheezes Cardio Rate: regular rate Rhythm: regular rhythm Extremity Extremity Narrative: Bilateral lower extremity edema with scattered fluid filled blisters, mild erythema but no warmth, tenderness, No particularly prominent varicose veins. Pulses diminished to palpation with monophasic signals. Appropriate color and normal capillary refill. Skin Wounds: wounds noted Wound Narrative: Right posterior calf cluster and Left posterior calf wound both with significant slough but good granulation tissue at base. Neuro oriented x3, CN's II-XII intact bilaterally, moves all extremities and no focal motor deficits Psych Appearance: grossly normal Attitude: calm Debridement Note Debridement Note Wound debrided: L posterior calf cluster Laterality: Left Type of Debridement: Excisional debridement Anesthesia Used: 5% Lidocaine Gel Depth: Down to and including healthy tissue Percentage of wound debrided: 100 Instrument Used: 5mm curette Tissue Removed: slough, devitalized tissue Amount of bleeding with debridement: Mild Bleeding Controlled with: Pressure Patient tolerated procedure: Patient tolerated procedure well Post-Debridement Measurements and Additional Note: Post-Debridement Measurements/Treatment - Nurse 1 - General Ulcer Assessment Start: 01/11/23 13:43 Freq: Status: Active Protocol: TIMOTHYEXElza Activity Type Activity Date Activity User E-sign Co-sign Detail Recorded Client Recorded Date Recorded By Document 01/11/23 13:43 DL [id number] 01/11/23 13:52 DL 01/11/23 13:43 WC - Today's Visit Information Type of service Follow-up Visit (Physician/[employer]OCIATE ) Arrival Mode Ambulatory, Walker Transfer Assistance None Patient Identification Verified (Name & Yes ) Patient Requires Transmission-Based No Precautions Height and Weight Body Mass Index (BMI) 38.2 BMI Classification Obese Vital Signs Temperature (97.8 F-99.1 F) 97.3 F L Temperature Source Temporal Pulse Rate (60-100) 85 Pulse Location Monitor Respiratory Rate (12-18) 20 H Respiratory rate source Observation Blood Pressure (90/60-120/80) 147/96 H Blood Pressure Mean 113 Source Monitor History Since Last Visit- (Skip if this is Patient's initial visit) Have you changed medications since your No last visit? Any new allergies or adverse reactions No Had a fall/change in ADL's that may No increase risk of falls Signs or symptoms of abuse and/or No neglect since last visit Have you been in the hospital since your No last visit? Has compression in place as prescribed Yes Has offloadiing in place as prescribed N/A Experienced any changes in pain level or No management Pain Scale: 0-10 Numeric Is Patient Pain Free? Yes - Nurse 1 - General Ulcer Measurement Start: 01/11/23 13:43 Freq: Status: Active Protocol: Activity Type Activity Date Activity User E-sign Co-sign Detail Recorded Client Recorded Date Recorded By Document 01/11/23 13:43 DL [id number] 01/11/23 13:52 DL 01/11/23 13:43 Wound Center Nurse 1 #5- L LAT POST LE -Current Size (cm) - Length 4.9 -Current Size (cm) - Width 3.7 -Current Size (cm) - Depth 0.2 -Total Square Cm 18.13 -Exudate Amt Medium -Exudate Type Serosanguineous -Wound Margin Distinct, Outline Attached -Granulation Amt None Present (0 %) -Necrosis Amt Large (67-100%) -Necrotic Tissue Type Adherent Slough -Structure Exposed N/A -Texture (Maryann-wound Skin Appearance) Scarring -Moisture (Maryann-wound Skin Appearance) Maceration -Color (Maryann-wound Skin Appearance) Hemosiderin Staining -Temperature (Maryann-wound Skin No Abnormality Appearance) (Pt Warm) -Ulcer Cleansing Soap and Water -Foul Odor after Cleansing No -Anesthetic Used 5% Lidocaine Gel #3- R CALF CLUSTER -Current Size (cm) - Length 1.8 -Current Size (cm) - Width 3.8 -Current Size (cm) - Depth 0.2 -Total Square Cm 6.84 -Exudate Amt Medium -Exudate Type Serosanguineous -Wound Margin Distinct, Outline Attached -Granulation Amt Medium (34-66%) -Granulation Quality [place] -Necrosis Amt Medium (34-66%) -Necrotic Tissue Type Adherent Slough -Structure Exposed N/A -Texture (Maryann-wound Skin Appearance) Scarring -Moisture (Maryann-wound Skin Appearance) Weeping -Color (Maryann-wound Skin Appearance) Hemosiderin Staining -Temperature (Maryann-wound Skin No Abnormality Appearance) (Pt Warm) -Tenderness on Palpation (Maryann-wound No Skin Appearance) -Ulcer Cleansing Soap and Water -Foul Odor after Cleansing No -Anesthetic Used 5% Lidocaine Gel Right Calf (cm) 38.6 Right Ankle (cm) 21.8 Left Calf (cm) 22.6 Left Ankle (cm) 39.1 WC - Nurse 2 - General Ulcer CM Notes Start: 01/11/23 13:43 Freq: Status: Active Protocol: Activity Type Activity Date Activity User E-sign Co-sign Detail Recorded Client Recorded Date Recorded By Document 01/11/23 17:29 PL [id number] 01/11/23 17:34 PL 01/11/23 17:29 Wound Center Nurse 2 #5- L LAT POST LE -Time 14:10 -Correct Patient Yes -Correct Side, Site, Position Yes -Correct Procedure Yes -Procedure Performed Yes -Type of Procedure Debridement -Clinical Debridement Subcutaneous -Tissue Removed Subcutaneous -Post Debridement (cm) - Length 6.0 -Post Debridement (cm) - Width 4.9 -Post Debridement (cm) - Depth 0.1 -Total Square (Post) (cm) 29.40 -Area of Debridement (cm) - Length 6.0 -Area of Debridement (cm) - Width 4.9 -Total Square (Area) (cm) 29.40 -Tunneling No -Undermining/Tunneling No -Circular Undermining No -Wound/Ulcer Outcome Not Healed -Ulcer Cleansing Rinsed/ Irrigated with Saline -Foul Odor after Cleansing No -Bioengineered Tissue No -Bleeding Controlled with Pressure -Treatment Response Procedure Tolerated Well -Debridement - Subq, 1st 20sq cm No #3- R CALF CLUSTER -Time 14:08 -Correct Patient Yes -Correct Side, Site, Position Yes -Correct Procedure Yes -Procedure Performed Yes -Type of Procedure Debridement -Clinical Debridement Subcutaneous -Tissue Removed Subcutaneous -Post Debridement (cm) - Length 2.2 -Post Debridement (cm) - Width 5.9 -Post Debridement (cm) - Depth 0.1 -Total Square (Post) (cm) 12.98 -Area of Debridement (cm) - Length 2.2 -Area of Debridement (cm) - Width 5.9 -Total Square (Area) (cm) 12.98 -Tunneling No -Undermining/Tunneling No -Circular Undermining No -Wound/Ulcer Outcome Not Healed -Ulcer Cleansing Rinsed/ Irrigated with Saline -Foul Odor after Cleansing No -Bioengineered Tissue No -Bleeding Controlled with Pressure -Treatment Response Procedure Tolerated Well -Debridement - Subq, 1st 20sq cm Yes -Debridement, SubQ, ea addt'l 20sq cm 2 or part thereof Pain Scale: 0-10 Numeric Is Patient Pain Free? Yes WC - Nurse 3 - General Ulcer D/C NN Start: 01/11/23 13:43 Freq: Status: Active Protocol: Activity Type Activity Date Activity User E-sign Co-sign Detail Recorded Client Recorded Date Recorded By Document 01/11/23 14:43 KELSIE [id number] 01/11/23 14:45 RB 01/11/23 14:43 Wound Care Center Nurse 3 #5- L LAT POST LE -Ulcer Cleansing Rinsed/ Irrigated with Saline -Primary Dressing Applied Aquacel Extra, Optilok 6.5x10 -Aquacel Extra 1 -Optilok 6.5x10 1 #3- R CALF CLUSTER -Ulcer Cleansing Rinsed/ Irrigated with Saline -Primary Dressing Applied Optilok 6.5x10 -Other Dressing aquacel extra -Optilok 6.5x10 1 bilat -Multi-Layered Wrap Application Multi-Layer Comp - Bilat ($ ) Treatment Response Procedure Tolerated Well Pain Scale: 0-10 Numeric Is Patient Pain Free? Yes Teaching: Wound Center Compression Wraps & Stockings -Person Taught Patient -Teaching Method Discussion, Demonstration -Response to teaching Verbalize understanding WC - Visit Discharge Discharge Condition Stable Ambulatory Status Ambulatory, Walker Transportation Private Auto Medication Reconcilliation completed & No provided to patient/care provider Clinical Summary of Care Provided Yes Additional Wound Wound debrided: R posterior calf Laterality: Right Type of Debridement: Excisional debridement Anesthesia Used: 5% Lidocaine Gel Depth: Down to and including healthy tissue Percentage of wound debrided: 100 Instrument Used: 5mm curette Tissue Removed: slough, devitalized tissue Amount of bleeding with debridement: Mild Bleeding Controlled with: Pressure Patient tolerated procedure: Patient tolerated procedure well Charges/Coding Visit Charges Office Visits / Consults: [id number] OV L3 Est Procedures Integumentary [id number]: [id number] Otilia subq tissue 20 sq cm/< Assessment/Plan Assessment/Plan (1) Non-pressure chronic ulcer of left lower leg: CODE(S): L97.929 - Non-pressure chronic ulcer of unspecified part of left lower leg with unspecified severity (2) Non-pressure chronic ulcer of right lower leg: CODE(S): L97.919 - Non-pressure chronic ulcer of unspecified part of right lower leg with unspecified severity (3) Bilateral lower extremity edema: CODE(S): R60.0 - Localized edema PLAN: Plan Will apply Aquacel to the wound bases. Then 3M wraps with super absorber. SNF will remove and replace the 3M wraps fdc through the week. She was instructed to elevate her legs as much as possible whenever resting. If her legs rest against the chair, place a pillow underneath/behind them to reduce pressure to the area. Return to clinic in 1 week.
[2023-01-18 14:19] VITALS: BP 158/77; PULSE 86; RESP 16; TEMP 36.1; BMI 38.2
--- NOTE | 2023-01-19 00:20 | HP.PCM_ITS ---
History of Present Illness Date of Service: 01/19/23 Chief Complaint: BLE wounds History of Wound: Patient is an 81-year-old female who resides at [facility]. She is referred by facility for evaluation and management of bilateral lower extremity wounds which have been ongoing for a week or so. She is well known to me as I just discharged her from [facility] for similar wounds about 1 month ago. At that time, she had bilateral posterior calf wounds which had fully healed at time of discharge. She was instructed to wear measured compression stockings to prevent recurrence. She states she obtained the measured compression stockings, but they seemed too tight. Instead, she has been wearing the tubigrips she has accumulated. Unfortunately, she bumped the back of her legs a week or so ago and the wounds have recurred in almost the same location as last time. She is not diabetic. She does not smoke. She is ambulatory and denies claudication type symptoms. She does have bilateral lower extremity edema. Serous drainage from the wounds and scattered fluid-filled blisters on her lower legs. She does still sleep in a chair, but tries to elevate her feet on a footstool. Progress of Wound: Bilateral lower extremity wounds have granulation tissue at the base with significant slough, moderate serous drainage. [facility] Medical History (Updated 01/12/23 @ 13:44 by NARDA Abebe) Cellulitis and abscess of right leg CLL (chronic lymphocytic leukemia) Cognitive communication disorder Dementia Dementia with psychotic disturbance Glaucoma HTN (hypertension) Muscle weakness Obesity Home Medications acetaminophen 325 mg tablet 650 mg PO Q6H PRN Pain 09/15/22 [History Last Taken Unknown] bisacodyl 10 mg rectal suppository 10 mg DE DAILY PRN Constipation 09/15/22 [History Last Taken Unknown] furosemide 20 mg tablet 40 mg PO DAILY 09/15/22 [History Last Taken Unknown] hydroxyzine HCl 25 mg tablet 25 mg PO TID PRN ITCHING/ANXIETY 09/15/22 [History Last Taken Unknown] indapamide 2.5 mg tablet 2.5 mg PO DAILY 09/15/22 [History Last Taken Unknown] latanoprost 0.005 % eye drops 1 drp EACH EYE DAILY 09/15/22 [History Last Taken Unknown] nystatin 100,000 unit/gram topical powder 1 applic topical BID PRN Rash 09/15/22 [History Last Taken Unknown] ondansetron 4 mg disintegrating tablet 4 mg PO Q6H PRN Nausea 09/15/22 [History Last Taken Unknown] potassium chloride 20 mEq tablet,extended release 20 meq PO DAILY 09/15/22 [History Last Taken Unknown] sodium phosphates 19 gram-7 gram/118 mL enema (Fleet Enema) 118 ml DE DAILY PRN Constipation 09/15/22 [History Last Taken Unknown] venlafaxine 37.5 mg tablet 75 mg PO DAILY 09/15/22 [History Last Taken Unknown] Allergy/AdvReac Type Severity Reaction Status Date / Time timolol Allergy Other Verified 11/08/22 20:35 Social History (Reviewed 10/18/22 @ 12:50 by Susan Pompa [employer], [employer]CH[employer]-C) Smoking Status: Never smoker Vital Signs Vital Signs Vital Signs: 01/18/23 14:19 Temperature 96.9 F L Temperature Source Temporal Pulse Rate 86 Respiratory Rate 16 Blood Pressure 158/77 H Blood Pressure Mean 104 Blood Pressure Source Monitor Blood Pressure Position Sitting Blood Pressure Location Left Arm Oxygen Delivery Method Room Air Weight Weight: 196 lb Body Mass Index (BMI) 38.2 Debridement Note Debridement Note Post-Debridement Measurements and Additional Note: Post-Debridement Measurements/Treatment - Nurse 1 - General Ulcer Assessment Start: 01/11/23 13:43 Freq: Status: Active Protocol: STACIA Activity Type Activity Date Activity User E-sign Co-sign Detail Recorded Client Recorded Date Recorded By Document 01/11/23 13:43 DL [id number] 01/11/23 13:52 DL Document 01/18/23 14:19 [facility] [id number] 01/18/23 14:28 [facility] 01/11/23 01/18/23 13:43 14:19 - Today's Visit Information Type of service Follow-up Visit Follow-up Visit (Physician/[employer] (Physician/[employer] ) ) Arrival Mode Ambulatory, Ambulatory, Walker Walker Transfer Assistance None None Patient Identification Verified (Name & Yes Yes ) Patient Requires Transmission-Based No No Precautions Height and Weight Body Mass Index (BMI) 38.2 38.2 BMI Classification Obese Obese Vital Signs Temperature (97.8 F-99.1 F) 97.3 F L 96.9 F L Temperature Source Temporal Temporal Pulse Rate (60-100) 85 86 Pulse Location Monitor Monitor Respiratory Rate (12-18) 20 H 16 Respiratory rate source Observation Observation Oxygen Delivery Method Room Air Blood Pressure (90/60-120/80) 147/96 H 158/77 H Blood Pressure Mean 113 104 Source Monitor Monitor Position Sitting Blood Pressure Location Left Arm History Since Last Visit- (Skip if this is Patient's initial visit) Have you changed medications since your No No last visit? Any new allergies or adverse reactions No No Had a fall/change in ADL's that may No No increase risk of falls Signs or symptoms of abuse and/or No No neglect since last visit Have you been in the hospital since your No No last visit? Has dressing in place as prescribed Yes Has compression in place as prescribed Yes Yes Has offloadiing in place as prescribed N/A N/A Experienced any changes in pain level or No No management Left Footwear Diabetic Shoe Right Footwear Diabetic Shoe Pain Scale: 0-10 Numeric Is Patient Pain Free? Yes Yes WC - Nurse 1 - General Ulcer Measurement Start: 01/11/23 13:43 Freq: Status: Active Protocol: Activity Type Activity Date Activity User E-sign Co-sign Detail Recorded Client Recorded Date Recorded By Document 01/11/23 13:43 DL [id number] 01/11/23 13:52 DL Document 01/18/23 14:19 [facility] [id number] 01/18/23 14:28 BM 01/11/23 01/18/23 13:43 14:19 Wound Center Nurse 1 #5- L LAT POST LE -Combined with other wound No -Current Size (cm) - Length 4.9 3.3 -Current Size (cm) - Width 3.7 1.9 -Current Size (cm) - Depth 0.2 0.1 -Total Square Cm 18.13 6.27 -Epithelialization Small 1-33% -Tunneling No -Undermining/Tunneling No -Circular Undermining No -Exudate Amt Medium Medium -Exudate Type Serosanguineous Serosanguineous -Wound Margin Distinct, Distinct, Outline Outline Attached Attached -Granulation Amt None Present (0 Large (67-100%) %) -Granulation Quality Red -Slough/Fibrin Yes -Necrosis Amt Large (67-100%) Small (1-33%) -Necrotic Tissue Type Adherent Slough Adherent Slough -Structure Exposed N/A -Texture (Maryann-wound Skin Appearance) Scarring Assessed, Scarring -Moisture (Maryann-wound Skin Appearance) Maceration Assessed,Dry/ Scaly -Color (Maryann-wound Skin Appearance) Hemosiderin Assessed Staining -Temperature (Maryann-wound Skin No Abnormality No Abnormality Appearance) (Pt Warm) (Pt Warm) -Tenderness on Palpation (Maryann-wound No Skin Appearance) -Ulcer Cleansing Soap and Water Soap and Water -Foul Odor after Cleansing No No -Anesthetic Used 5% Lidocaine 4% Lidocaine Gel Solution #3- R CALF CLUSTER -Combined with other wound No -Current Size (cm) - Length 1.8 2.5 -Current Size (cm) - Width 3.8 3.7 -Current Size (cm) - Depth 0.2 0.1 -Total Square Cm 6.84 9.25 -Photo Taken No -Epithelialization Medium 34-66% -Tunneling No -Undermining/Tunneling No -Circular Undermining No -Exudate Amt Medium Medium -Exudate Type Serosanguineous Serosanguineous -Wound Margin Distinct, Distinct, Outline Outline Attached Attached -Granulation Amt Medium (34-66%) Large (67-100%) -Granulation Quality [place] Red -Slough/Fibrin Yes -Necrosis Amt Medium (34-66%) Small (1-33%) -Necrotic Tissue Type Adherent Slough Adherent Slough -Structure Exposed N/A -Texture (Maryann-wound Skin Appearance) Scarring Assessed, Scarring -Moisture (Maryann-wound Skin Appearance) Weeping Assessed -Color (Maryann-wound Skin Appearance) Hemosiderin Assessed Staining -Temperature (Maryann-wound Skin No Abnormality No Abnormality Appearance) (Pt Warm) (Pt Warm) -Tenderness on Palpation (Maryann-wound No No Skin Appearance) -Ulcer Cleansing Soap and Water Soap and Water -Foul Odor after Cleansing No No -Anesthetic Used 5% Lidocaine 4% Lidocaine Gel Solution Lower Limb Edema Present Yes Right Calf (cm) 38.6 35.5 Right Ankle (cm) 21.8 21 Left Calf (cm) 22.6 32.7 Left Ankle (cm) 39.1 20.5 WC - Nurse 2 - General Ulcer CM Notes Start: 01/11/23 13:43 Freq: Status: Active Protocol: Activity Type Activity Date Activity User E-sign Co-sign Detail Recorded Client Recorded Date Recorded By Document 01/11/23 17:29 PL [id number] 01/11/23 17:34 PL Document 01/18/23 17:19 PL [id number] 01/18/23 17:20 PL 01/11/23 01/18/23 17:29 17:19 Wound Center Nurse 2 #5- L LAT POST LE -Time 14:10 14:47 -Correct Patient Yes Yes -Correct Side, Site, Position Yes Yes -Correct Procedure Yes Yes -Procedure Performed Yes Yes -Type of Procedure Debridement Debridement -Clinical Debridement Subcutaneous Subcutaneous -Tissue Removed Subcutaneous Subcutaneous -Post Debridement (cm) - Length 6.0 3.5 -Post Debridement (cm) - Width 4.9 1.1 -Post Debridement (cm) - Depth 0.1 0.1 -Total Square (Post) (cm) 29.40 3.85 -Area of Debridement (cm) - Length 6.0 3.5 -Area of Debridement (cm) - Width 4.9 1.1 -Total Square (Area) (cm) 29.40 3.85 -Tunneling No No -Undermining/Tunneling No No -Circular Undermining No No -Wound/Ulcer Outcome Not Healed Not Healed -Ulcer Cleansing Rinsed/ Rinsed/ Irrigated with Irrigated with Saline Saline -Foul Odor after Cleansing No No -Bioengineered Tissue No No -Bleeding Controlled with Pressure Pressure -Treatment Response Procedure Procedure Tolerated Well Tolerated Well -Debridement - Subq, 1st 20sq cm No No #3- R CALF CLUSTER -Time 14:08 14:47 -Correct Patient Yes Yes -Correct Side, Site, Position Yes Yes -Correct Procedure Yes Yes -Procedure Performed Yes Yes -Type of Procedure Debridement Debridement -Clinical Debridement Subcutaneous Subcutaneous -Tissue Removed Subcutaneous Subcutaneous -Post Debridement (cm) - Length 2.2 2.2 -Post Debridement (cm) - Width 5.9 3.5 -Post Debridement (cm) - Depth 0.1 0.1 -Total Square (Post) (cm) 12.98 7.70 -Area of Debridement (cm) - Length 2.2 2.2 -Area of Debridement (cm) - Width 5.9 3.5 -Total Square (Area) (cm) 12.98 7.70 -Tunneling No No -Undermining/Tunneling No No -Circular Undermining No No -Wound/Ulcer Outcome Not Healed Not Healed -Ulcer Cleansing Rinsed/ Rinsed/ Irrigated with Irrigated with Saline Saline -Foul Odor after Cleansing No No -Bioengineered Tissue No No -Bleeding Controlled with Pressure Pressure -Treatment Response Procedure Procedure Tolerated Well Tolerated Well -Debridement - Subq, 1st 20sq cm Yes Yes -Debridement, SubQ, ea addt'l 20sq cm 2 or part thereof Pain Scale: 0-10 Numeric Is Patient Pain Free? Yes Yes WC - Nurse 3 - General Ulcer D/C NN Start: 01/11/23 13:43 Freq: Status: Active Protocol: Activity Type Activity Date Activity User E-sign Co-sign Detail Recorded Client Recorded Date Recorded By Document 01/11/23 14:43 RB [id number] 01/11/23 14:45 RB Document 01/18/23 15:02 DL [id number] 01/18/23 15:11 DL 01/11/23 01/18/23 14:43 15:02 Wound Care Center Nurse 3 #5- L LAT POST LE -Ulcer Cleansing Rinsed/ Rinsed/ Irrigated with Irrigated with Saline Saline -Primary Dressing Applied Aquacel Extra, Aquacel Extra Optilok 6.5x10 -Primary Dressing Covered/Secured with Dry Gauze -Aquacel Extra 1 1 -Optilok 6.5x10 1 #3- R CALF CLUSTER -Ulcer Cleansing Rinsed/ Rinsed/ Irrigated with Irrigated with Saline Saline -Foul Odor after Cleansing No -Primary Dressing Applied Optilok 6.5x10 -Other Dressing aquacel extra AQUACEL eX -Primary Dressing Covered/Secured with Dry Gauze -Optilok 6.5x10 1 Right -Multi-Layered Wrap Application Multi-Layer Comp - Right ($ ) Left -Multi-Layered Wrap Application Multi-Layer Comp - Left ($) ESTER -Multi-Layered Wrap Application Multi-Layer Comp - Bilat ($ ) bilat -Multi-Layered Wrap Application Multi-Layer Multi-Layer Comp - Bilat ($ Comp - Bilat ($ ) ) Treatment Response Procedure Procedure Tolerated Well Tolerated Well Pain Scale: 0-10 Numeric Is Patient Pain Free? Yes Yes Teaching: Wound Center Compression Wraps & Stockings -Person Taught Patient -Teaching Method Discussion, Demonstration -Response to teaching Verbalize understanding WC - Visit Discharge Discharge Condition Stable Stable Ambulatory Status Ambulatory, Ambulatory Walker Transportation Private Auto Private Auto Medication Reconcilliation completed & No provided to patient/care provider Clinical Summary of Care Provided Yes Notes: 3 3M WRAPS USED FOR PT TODAY IN CLINIC, 3 MORE SENT TO [facility] FOR PT TO BE CHANGED ON SUNDAY. B AYO APPLIED DRESSINGS TODAY IN CLINIC. Facility Type Custodial Care Facility Orders Sent Yes
--- NOTE | 2023-01-19 00:20 | PCM.WC.PN ---
History of Present Illness Date of Service: 01/19/23 Chief Complaint: BLE wounds History of Wound: Patient is an 81-year-old female who resides at [facility]. She is referred by facility for evaluation and management of bilateral lower extremity wounds which have been ongoing for several weeks. Patient is unaccompanied to her appointment today. She does appear to have some level of dementia and is somewhat confused at times so is a rather poor historian. Referral paperwork indicates that patient had lower extremity cellulitis about a month ago which was treated with p.o. antibiotics. Current wound treatment consists of cleansing with wound cleanser covering with Telfa and wrapping with Kerlix daily. She reports a lot of pain associated with the wounds, but denies this pain being present prior to the wounds appearing. Patient states she is not diabetic and by review of her medication list this appears to be accurate. She states she does not smoke. She reports that she has never had wounds like this in the past. She is ambulatory and denies claudication type symptoms. She does have bilateral lower extremity edema with some fluid-filled blisters and serous fluid draining from wounds. She tells me that she does not wear compression. She typically sleeps in a chair. Subjective Subjective BLE edema is significantly improved after 1 week of 3M compression wraps. Wounds are decreased in size and she reports less discomfort. She does spend a lot of time sitting in a chair throughout the day. Objective Data Objective Data Vital Signs: Vital Signs Temp Pulse Resp BP O2 Del Method 96.9 F L 86 16 158/77 H Room Air 01/18/23 14:19 01/18/23 14:19 01/18/23 14:19 01/18/23 14:19 01/18/23 14:19 Oxygen Delivery Method Room Air Weight: 196 lb Body Mass Index (BMI) 38.2 Charges/Coding Procedures Integumentary 111xxx-113xx: [id number] Otilia subq tissue 20 sq cm/< Physical Exam Const alert, oriented x3 and no apparent distress Orientation / Consciousness: confused HEENT normocephalic, hearing grossly normal bilaterally, external ears normal and external nose normal Eyes EOMs intact bilaterally General Eye: normal appearance of both eyes Neck General: normal visual inspection and trachea midline Resp normal respiratory effort, normal air movement, no retractions and no use of accessory muscles Effort and Inspection: able to speak in complete sentences; Negative for stridor or audible wheezes Cardio Rate: regular rate Rhythm: regular rhythm Extremity Extremity Narrative: Bilateral lower extremity edema significantly improved from last week, erythema resolved. Appropriate color and normal capillary refill. Skin Wounds: wounds noted Wound Narrative: Right posterior calf cluster and Left posterior calf wound both with some slough, pink granulation tissue. Significantly reduced in size. Neuro oriented x3, CN's II-XII intact bilaterally, moves all extremities and no focal motor deficits Psych Appearance: grossly normal Attitude: calm Debridement Note Debridement Note Wound debrided: L posterior calf cluster Laterality: Left Type of Debridement: Excisional debridement Anesthesia Used: 5% Lidocaine Gel Depth: Down to and including healthy tissue Percentage of wound debrided: 100 Instrument Used: 5mm curette Tissue Removed: slough, devitalized tissue Amount of bleeding with debridement: Mild Bleeding Controlled with: Pressure Patient tolerated procedure: Patient tolerated procedure well Post-Debridement Measurements and Additional Note: Post-Debridement Measurements/Treatment NIRU - Nurse 1 - General Ulcer Assessment Start: 01/11/23 13:43 Freq: Status: Active Protocol: STACIA Activity Type Activity Date Activity User E-sign Co-sign Detail Recorded Client Recorded Date Recorded By Document 01/11/23 13:43 DL [id number] 01/11/23 13:52 DL Document 01/18/23 14:19 [facility] [id number] 01/18/23 14:28 BM 01/11/23 01/18/23 13:43 14:19 - Today's Visit Information Type of service Follow-up Visit Follow-up Visit (Physician/[employer] (Physician/[employer]ENT ) ) Arrival Mode Ambulatory, Ambulatory, Walker Walker Transfer Assistance None None Patient Identification Verified (Name & Yes Yes ) Patient Requires Transmission-Based No No Precautions Height and Weight Body Mass Index (BMI) 38.2 38.2 BMI Classification Obese Obese Vital Signs Temperature (97.8 F-99.1 F) 97.3 F L 96.9 F L Temperature Source Temporal Temporal Pulse Rate (60-100) 85 86 Pulse Location Monitor Monitor Respiratory Rate (12-18) 20 H 16 Respiratory rate source Observation Observation Oxygen Delivery Method Room Air Blood Pressure (90/60-120/80) 147/96 H 158/77 H Blood Pressure Mean (mm Hg) 113 104 Source Monitor Monitor Position Sitting Blood Pressure Location Left Arm History Since Last Visit- (Skip if this is Patient's initial visit) Have you changed medications since your No No last visit? Any new allergies or adverse reactions No No Had a fall/change in ADL's that may No No increase risk of falls Signs or symptoms of abuse and/or No No neglect since last visit Have you been in the hospital since your No No last visit? Has dressing in place as prescribed Yes Has compression in place as prescribed Yes Yes Has offloadiing in place as prescribed N/A N/A Experienced any changes in pain level or No No management Left Footwear Diabetic Shoe Right Footwear Diabetic Shoe Pain Scale: 0-10 Numeric Is Patient Pain Free? Yes Yes WC - Nurse 1 - General Ulcer Measurement Start: 01/11/23 13:43 Freq: Status: Active Protocol: Activity Type Activity Date Activity User E-sign Co-sign Detail Recorded Client Recorded Date Recorded By Document 01/11/23 13:43 DL [id number] 01/11/23 13:52 DL Document 01/18/23 14:19 BM [id number] 01/18/23 14:28 BMF 01/11/23 01/18/23 13:43 14:19 Wound Center Nurse 1 #5- L LAT POST LE -Combined with other wound No -Current Size (cm) - Length 4.9 3.3 -Current Size (cm) - Width 3.7 1.9 -Current Size (cm) - Depth 0.2 0.1 -Total Square Cm 18.13 6.27 -Epithelialization Small 1-33% -Tunneling No -Undermining/Tunneling No -Circular Undermining No -Exudate Amt Medium Medium -Exudate Type Serosanguineous Serosanguineous -Wound Margin Distinct, Distinct, Outline Outline Attached Attached -Granulation Amt None Present (0 Large (67-100%) %) -Granulation Quality Red -Slough/Fibrin Yes -Necrosis Amt Large (67-100%) Small (1-33%) -Necrotic Tissue Type Adherent Slough Adherent Slough -Structure Exposed N/A -Texture (Maryann-wound Skin Appearance) Scarring Assessed, Scarring -Moisture (Maryann-wound Skin Appearance) Maceration Assessed,Dry/ Scaly -Color (Maryann-wound Skin Appearance) Hemosiderin Assessed Staining -Temperature (Maryann-wound Skin No Abnormality No Abnormality Appearance) (Pt Warm) (Pt Warm) -Tenderness on Palpation (Maryann-wound No Skin Appearance) -Ulcer Cleansing Soap and Water Soap and Water -Foul Odor after Cleansing No No -Anesthetic Used 5% Lidocaine 4% Lidocaine Gel Solution #3- R CALF CLUSTER -Combined with other wound No -Current Size (cm) - Length 1.8 2.5 -Current Size (cm) - Width 3.8 3.7 -Current Size (cm) - Depth 0.2 0.1 -Total Square Cm 6.84 9.25 -Photo Taken No -Epithelialization Medium 34-66% -Tunneling No -Undermining/Tunneling No -Circular Undermining No -Exudate Amt Medium Medium -Exudate Type Serosanguineous Serosanguineous -Wound Margin Distinct, Distinct, Outline Outline Attached Attached -Granulation Amt Medium (34-66%) Large (67-100%) -Granulation Quality [place] Red -Slough/Fibrin Yes -Necrosis Amt Medium (34-66%) Small (1-33%) -Necrotic Tissue Type Adherent Slough Adherent Slough -Structure Exposed N/A -Texture (Maryann-wound Skin Appearance) Scarring Assessed, Scarring -Moisture (Maryann-wound Skin Appearance) Weeping Assessed -Color (Maryann-wound Skin Appearance) Hemosiderin Assessed Staining -Temperature (Maryann-wound Skin No Abnormality No Abnormality Appearance) (Pt Warm) (Pt Warm) -Tenderness on Palpation (Maryann-wound No No Skin Appearance) -Ulcer Cleansing Soap and Water Soap and Water -Foul Odor after Cleansing No No -Anesthetic Used 5% Lidocaine 4% Lidocaine Gel Solution Lower Limb Edema Present Yes Right Calf (cm) 38.6 35.5 Right Ankle (cm) 21.8 21 Left Calf (cm) 22.6 32.7 Left Ankle (cm) 39.1 20.5 WC - Nurse 2 - General Ulcer CM Notes Start: 01/11/23 13:43 Freq: Status: Active Protocol: Activity Type Activity Date Activity User E-sign Co-sign Detail Recorded Client Recorded Date Recorded By Document 01/11/23 17:29 PL [id number] 01/11/23 17:34 PL Document 01/18/23 17:19 PL [id number] 08/31/23 17:20 PL 01/11/23 01/18/23 17:29 17:19 Wound Center Nurse 2 #5- L LAT POST LE -Time 14:10 14:47 -Correct Patient Yes Yes -Correct Side, Site, Position Yes Yes -Correct Procedure Yes Yes -Procedure Performed Yes Yes -Type of Procedure Debridement Debridement -Clinical Debridement Subcutaneous Subcutaneous -Tissue Removed Subcutaneous Subcutaneous -Post Debridement (cm) - Length 6.0 3.5 -Post Debridement (cm) - Width 4.9 1.1 -Post Debridement (cm) - Depth 0.1 0.1 -Total Square (Post) (cm) 29.40 3.85 -Area of Debridement (cm) - Length 6.0 3.5 -Area of Debridement (cm) - Width 4.9 1.1 -Total Square (Area) (cm) 29.40 3.85 -Tunneling No No -Undermining/Tunneling No No -Circular Undermining No No -Wound/Ulcer Outcome Not Healed Not Healed -Ulcer Cleansing Rinsed/ Rinsed/ Irrigated with Irrigated with Saline Saline -Foul Odor after Cleansing No No -Bioengineered Tissue No No -Bleeding Controlled with Pressure Pressure -Treatment Response Procedure Procedure Tolerated Well Tolerated Well -Debridement - Subq, 1st 20sq cm No No #3- R CALF CLUSTER -Time 14:08 14:47 -Correct Patient Yes Yes -Correct Side, Site, Position Yes Yes -Correct Procedure Yes Yes -Procedure Performed Yes Yes -Type of Procedure Debridement Debridement -Clinical Debridement Subcutaneous Subcutaneous -Tissue Removed Subcutaneous Subcutaneous -Post Debridement (cm) - Length 2.2 2.2 -Post Debridement (cm) - Width 5.9 3.5 -Post Debridement (cm) - Depth 0.1 0.1 -Total Square (Post) (cm) 12.98 7.70 -Area of Debridement (cm) - Length 2.2 2.2 -Area of Debridement (cm) - Width 5.9 3.5 -Total Square (Area) (cm) 12.98 7.70 -Tunneling No No -Undermining/Tunneling No No -Circular Undermining No No -Wound/Ulcer Outcome Not Healed Not Healed -Ulcer Cleansing Rinsed/ Rinsed/ Irrigated with Irrigated with Saline Saline -Foul Odor after Cleansing No No -Bioengineered Tissue No No -Bleeding Controlled with Pressure Pressure -Treatment Response Procedure Procedure Tolerated Well Tolerated Well -Debridement - Subq, 1st 20sq cm Yes Yes -Debridement, SubQ, ea addt'l 20sq cm 2 or part thereof Pain Scale: 0-10 Numeric Is Patient Pain Free? Yes Yes WC - Nurse 3 - General Ulcer D/C NN Start: 01/11/23 13:43 Freq: Status: Active Protocol: Activity Type Activity Date Activity User E-sign Co-sign Detail Recorded Client Recorded Date Recorded By Document 01/11/23 14:43 RB [id number] 01/11/23 14:45 RB Document 01/18/23 15:02 DL [id number] 01/18/23 15:11 DL 01/11/23 01/18/23 14:43 15:02 Wound Care Center Nurse 3 #5- L LAT POST LE -Ulcer Cleansing Rinsed/ Rinsed/ Irrigated with Irrigated with Saline Saline -Primary Dressing Applied Aquacel Extra, Aquacel Extra Optilok 6.5x10 -Primary Dressing Covered/Secured with Dry Gauze -Aquacel Extra 1 1 -Optilok 6.5x10 1 #3- R CALF CLUSTER -Ulcer Cleansing Rinsed/ Rinsed/ Irrigated with Irrigated with Saline Saline -Foul Odor after Cleansing No -Primary Dressing Applied Optilok 6.5x10 -Other Dressing aquacel extra AQUACEL eX -Primary Dressing Covered/Secured with Dry Gauze -Optilok 6.5x10 1 Right -Multi-Layered Wrap Application Multi-Layer Comp - Right ($ ) Left -Multi-Layered Wrap Application Multi-Layer Comp - Left ($) ESTER -Multi-Layered Wrap Application Multi-Layer Comp - Bilat ($ ) bilat -Multi-Layered Wrap Application Multi-Layer Multi-Layer Comp - Bilat ($ Comp - Bilat ($ ) ) Treatment Response Procedure Procedure Tolerated Well Tolerated Well Pain Scale: 0-10 Numeric Is Patient Pain Free? Yes Yes Teaching: Wound Center Compression Wraps & Stockings -Person Taught Patient -Teaching Method Discussion, Demonstration -Response to teaching Verbalize understanding WC - Visit Discharge Discharge Condition Stable Stable Ambulatory Status Ambulatory, Ambulatory Walker Transportation Private Auto Private Auto Medication Reconcilliation completed & No provided to patient/care provider Clinical Summary of Care Provided Yes Notes: 3 3M WRAPS USED FOR PT TODAY IN CLINIC, 3 MORE SENT TO [facility]CF FOR PT TO BE CHANGED ON SUNDAY. B AYO APPLIED DRESSINGS TODAY IN CLINIC. Facility Type [facility] Orders Sent Yes Additional Wound Wound debrided: R posterior calf Laterality: Right Type of Debridement: Excisional debridement Anesthesia Used: 5% Lidocaine Gel Depth: Down to and including healthy tissue Percentage of wound debrided: 100 Instrument Used: 5mm curette Tissue Removed: slough, devitalized tissue Amount of bleeding with debridement: Mild Bleeding Controlled with: Pressure Patient tolerated procedure: Patient tolerated procedure well Assessment/Plan Assessment/Plan (1) Non-pressure chronic ulcer of left lower leg: CODE(S): L97.929 - Non-pressure chronic ulcer of unspecified part of left lower leg with unspecified severity (2) Non-pressure chronic ulcer of right lower leg: CODE(S): L97.919 - Non-pressure chronic ulcer of unspecified part of right lower leg with unspecified severity (3) Bilateral lower extremity edema: CODE(S): R60.0 - Localized edema PLAN: Plan Continue Aquacel to the wound bases and 3M wraps with super absorber. SNF will remove and replace the 3M wraps senior living through the week. She was reminded to elevate her legs as much as possible whenever resting. If her legs rest against the chair, place a pillow underneath/behind them to reduce pressure to the area. Return to clinic in 1 week.
== END 2023-01-18 23:59 | disposition home or self-care (01) ==
LOC: WC 14:15
PROVIDERS: PCP Family Medicine; Referring Provider Family Medicine; Visit Provider Physician Assistant
DX: L97.211 Non-pressure chronic ulcer of right calf limited to breakdown of skin (principal); L97.221 Non-pressure chronic ulcer of left calf limited to breakdown of skin; F03.92 Unspecified dementia, unspecified severity, with psychotic disturbance; R60.0 Localized edema; I10 Essential (primary) hypertension; Z79.899 Other long term (current) drug therapy
CPT/HCPCS: 11042; 11045; 29581; 99213; G0463

== ENCOUNTER 2023-01-31 07:45 | Emergency (ER) | payer MEDICARE, SELFPAY ==
[2023-01-31 07:46] VITALS: BP 170/75; PULSE 64; RESP 15; TEMP 36.8; O2SAT 95; BMI 28.0
--- NOTE | 2023-01-31 07:53 | CT_ITS ---
STUDY: CT BRAIN WITHOUT CONTRAST REASON FOR EXAM: Female, 82 years old. Altered mental status RADIATION DOSAGE (If Supplied By Facility): CTDIvol = ( 44.99 ) mGy, DLP = ( 745.49 ) mGycm TECHNIQUE: Transaxial CT imaging of the brain was performed without administration of intravenous contrast material. Individualized dose optimization techniques were used for this CT. COMPARISON: 11/08/2022 FINDINGS: Normal soft tissue structures. Normal calvarium. Normal size ventricles and extra-axial spaces for the patient''s age. Normal white matter tracts of the cerebral hemispheres. Normal basal ganglia and thalami. Normal brainstem. Normal cerebellum. There is no intracranial hemorrhage. There are no findings of an acute ischemic infarction. Normal visualized paranasal sinuses. CT/Brain/Head without Contrast IMPRESSION: Chronic involutional changes of the brain. No acute hemorrhage Electronically Signed: Tino Flores MD at 8:45 EDT ,
--- NOTE | 2023-01-31 07:53 | RAD_ITS ---
STUDY: X-RAY CHEST REASON FOR EXAM: Female, 82 years old. Weakness TECHNIQUE: Single AP portable view of the chest. COMPARISON: None. FINDINGS: EKG leads overlie the chest The lungs are clear and expanded. There is no demonstrated pleural abnormality. Normal size heart. Normal mediastinum and torri. Normal visualized pulmonary arteries. There is atherosclerotic calcification of the aortic arch with tortuosity. There are diffuse degenerative changes of the visualized thoracic spine. There is degenerative osteoarthritis of the bilateral shoulders. There is no demonstrated abnormality of the visualized soft tissue structures of the upper abdomen. RAD/Chest 1 View (Portable) IMPRESSION: No acute pulmonary process Electronically Signed: Tino Flores MD at 8:44 EDT ,
--- NOTE | 2023-01-31 07:53 | EKG12_ITS ---
Test Reason : LOC Blood Pressure : / mmHG Vent. Rate : 059 BPM Atrial Rate : 059 BPM P-R Int : 156 ms QRS Dur : 092 ms QT Int : 410 ms P-R-T Axes : 045 005 094 degrees QTc Int : 405 ms Sinus bradycardia with Fusion complexes ST & T wave abnormality, consider inferior ischemia Abnormal ECG Confirmed by SEN MACDONALD, JORDAN ([id number]), magazine editor STEPHANY AQUINO ([id number]) on 02/01/2023 12:17:42 PM Referred By: JONATHON Confirmed By:JORDAN CHATTERJEE MD
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
[2023-01-31 08:14] LABS: Absolute Lymphocyte Count 17.33 X10^3/uL (0.83-4.51); Basophil# 0.07 X10^3/uL; Basophil% 0.3 % (0-1); Eosinophils% 1.2 % (0-5); Hematocrit 42.5 % (37-47); Lymphocyte # 17.33 X10^3/ul (0.83-4.51); Mean Corp Hgb Conc 32.9 g/dL (32-36); Mean Corpuscular Hgb 31.3 pg (27.0-32.0); Mean Corpuscular Volume 94.9 fL (81-99); Mean Platelet Vol. 11.7 fl (6.2-12.0); Monocyte# 0.72 X10^3/uL; Monocyte% 2.8 % (0-10); NRBC Flagged by Analyzer 0.1 % (0-5); Neutrophil # 7.01 X10^3/uL (2.7-7.7); Neutrophil % 27.5 % (47-70); POSITIVE DIFFERENTIAL YES; POSITIVE MORPHOLOGY YES; Platelet Count 204 K/mm3 (150-450); RBC Distribution Width CV 12.7 % (11.6-14.6); RBC Distribution Width SD 44.1 fl (35.1-43.9); Red Blood Count 4.48 M/mm3 (4.2-5.4); White Blood Count 25.5 K/mm3 (4.4-11.0)
[2023-01-31 08:43] LABS: ALB/GLOB Ratio 0.9 RATIO (0.9-2.4); AST(SGOT) 10 U/L (15-37); Alanine Aminotransfer ALT/SGPT 18 U/L (13-56); Albumin, Serum 3.4 g/dL (3.2-5.0); Alkaline Phosphatase 77 U/L (45-117); Anion Gap 5 (5-15); BUN 29 mg/dL (7-18); BUN/Creat Ratio 30.6 RATIO (10-20); Chloride 103 mmol/L (98-107); Creatinine, Serum 0.95 mg/dL (0.55-1.02); EST Glomerular Filtration Rate 60 mL/min (>60); Est Glom Filt Rate - Afr Amer 73 mL/min (>60); Estimated Creatinine Clearance 43.48 ml/min; Globulin 3.9 g/dL (2.2-4.2); Glucose 229 mg/dL (74-106); Potassium 3.2 mmol/L (3.5-5.1); Protein, Total 7.3 g/dL (6.4-8.2); Sodium Level 136 mmol/L (136-145); Troponin-I HS 10 pg/mL (3.0-54.0)
[2023-01-31 08:49] LABS: Differential Indicated SCAN CRITERIA MET
[2023-01-31 09:00] LABS: Differential Comment SCANNED
[2023-01-31 09:13] LABS: Bacteria 0 SEEN /hpf (None Seen); Mucous, Urine 0 SEEN /hpf (<or=2+); Red Blood Cells-Urine 0 SEEN /hpf (0-5); Squamous Epithelial Cells - UA 0 SEEN /hpf (5-10); White Blood Cells 0 SEEN /hpf (0-5)
[2023-01-31 09:22] LABS: Color, Urine Yellow (Yellow); Glucose, Dipstick 250 mg/dl (Normal); Ketone-Dipstick Negative (Negative); Leukocyte Esterase-Dipstick Negative /ul (Negative); Nitrite-Dipstick Negative (Negative); Occult Blood-Urine Negative /ul (Negative); Protein-Dipstick Negative (Negative); Specific Gravity, Urine 1.015 (1.002-1.030); Urine Bilirubin Dipstick Negative (Negative); Urine Clarity Sl. Cloudy (Clear); Urine Urobilinogen Normal (Normal)
[2023-01-31 10:16] VITALS: BP 153/67; PULSE 64; RESP 15; O2SAT 97
== END 2023-01-31 11:39 | disposition home or self-care (01) ==
PROVIDERS: Emergency Provider Student in an Organized Health Care Education/Training Program; PCP Family Medicine; Visit Provider Student in an Organized Health Care Education/Training Program
DX: R41.82 Altered mental status, unspecified (principal); C91.10 Chronic lymphocytic leukemia of B-cell type not having achieved remission; F03.90 Unspecified dementia, unspecified severity, without behavioral disturbance, psychotic disturbance, mood disturbance, and anxiety; I10 Essential (primary) hypertension
CPT/HCPCS: 70450; 71045; 80053; 81001; 84484; 85025; 87428; 93005; 99285; P9612; A4216

== ENCOUNTER → 2023-02-05 | Outpatient (REF) | payer MEDICARE, SELFPAY ==
[2023-02-05 07:40] LABS: Absolute Lymphocyte Count 15.81 X10^3/uL (0.83-4.51); Absolute Neutrophil Count 6.1 X10^3/uL (2.0-7.7); Basophil# 0.05 X10^3/uL; Basophil% 0.2 % (0-1); Eosinophil# 0.28 X10^3/uL; Eosinophils% 1.2 % (0-5); Hematocrit 39.9 % (37-47); Hemoglobin 13.5 g/dL (12.0-15.0); Lymphocyte # 15.81 X10^3/ul (0.83-4.51); Lymphocyte % 69.1 % (19-41); Mean Corp Hgb Conc 33.8 g/dL (32-36); Mean Corpuscular Hgb 32.1 pg (27.0-32.0); Mean Platelet Vol. 11.7 fl (6.2-12.0); Monocyte# 0.63 X10^3/uL; Monocyte% 2.8 % (0-10); NRBC Flagged by Analyzer 0 % (0-5); Neutrophil # 6.06 X10^3/uL (2.7-7.7); Neutrophil % 26.4 % (47-70); POSITIVE DIFFERENTIAL YES; Platelet Count 222 K/mm3 (150-450); RBC Distribution Width CV 12.7 % (11.6-14.6); RBC Distribution Width SD 44.1 fl (35.1-43.9); White Blood Count 22.9 K/mm3 (4.4-11.0)
[2023-02-05 07:43] LABS: Differential Indicated SCAN CRITERIA MET
[2023-02-05 08:06] LABS: Reactive Lymphocyte 1+
[2023-02-05 08:26] LABS: Anion Gap 9 (5-15); BUN 30 mg/dL (7-18); BUN/Creat Ratio 26.3 RATIO (10-20); Calcium,Total 9.1 mg/dL (8.5-10.1); Chloride 100 mmol/L (98-107); Creatinine, Serum 1.14 mg/dL (0.55-1.02); EST Glomerular Filtration Rate 49 mL/min (>60); Est Glom Filt Rate - Afr Amer 59 mL/min (>60); Glucose 298 mg/dL (74-106); Potassium 2.9 mmol/L (3.5-5.1); Sodium Level 140 mmol/L (136-145)
== END ==
LOC: OLS.BROOKB 07:05
PROVIDERS: PCP Family Medicine; Visit Provider Family Medicine
DX: E11.65 Type 2 diabetes mellitus with hyperglycemia (principal); E87.6 Hypokalemia
CPT/HCPCS: 36415; 80048; 85025

== ENCOUNTER → 2023-02-14 05:00 | Outpatient (REF) | payer MEDICARE, SELFPAY ==
[2023-02-14 08:15] LABS: Absolute Lymphocyte Count 18.08 X10^3/uL (0.83-4.51); Absolute Neutrophil Count 4.6 X10^3/uL (2.0-7.7); Basophil# 0.06 X10^3/uL; Basophil% 0.3 % (0-1); Eosinophil# 0.41 X10^3/uL; Eosinophils% 1.7 % (0-5); Hematocrit 38.5 % (37-47); Hemoglobin 12.6 g/dL (12.0-15.0); Lymphocyte # 18.08 X10^3/ul (0.83-4.51); Lymphocyte % 75.6 % (19-41); Mean Corp Hgb Conc 32.7 g/dL (32-36); Mean Corpuscular Hgb 31.5 pg (27.0-32.0); Mean Corpuscular Volume 96.3 fL (81-99); Monocyte# 0.71 X10^3/uL; NRBC Flagged by Analyzer 0 % (0-5); Neutrophil # 4.59 X10^3/uL (2.7-7.7); Neutrophil % 19.1 % (47-70); POSITIVE DIFFERENTIAL YES; Platelet Count 213 K/mm3 (150-450); RBC Distribution Width CV 12.5 % (11.6-14.6); RBC Distribution Width SD 44.8 fl (35.1-43.9); White Blood Count 23.9 K/mm3 (4.4-11.0)
[2023-02-14 08:17] LABS: Differential Indicated SCAN CRITERIA MET
[2023-02-14 08:32] LABS: Anion Gap 4 (5-15); BUN 29 mg/dL (7-18); BUN/Creat Ratio 24.6 RATIO (10-20); Calcium,Total 8.7 mg/dL (8.5-10.1); Chloride 104 mmol/L (98-107); Creatinine, Serum 1.18 mg/dL (0.55-1.02); EST Glomerular Filtration Rate 47 mL/min (>60); Est Glom Filt Rate - Afr Amer 57 mL/min (>60); Glucose 269 mg/dL (74-106); Potassium 3.4 mmol/L (3.5-5.1); Sodium Level 140 mmol/L (136-145)
[2023-02-14 08:44] LABS: Differential Comment SCANNED
== END ==
LOC: PR 05:00
PROVIDERS: PCP Family Medicine; Visit Provider Family Medicine
DX: E87.6 Hypokalemia (principal); D72.829 Elevated white blood cell count, unspecified
CPT/HCPCS: 36415; 80048; 85025

== ENCOUNTER 2023-02-15 13:45 | Outpatient (RCR) | payer MEDICARE, SELFPAY ==
[2023-01-19 00:37] VITALS: BP 158/77; PULSE 86; RESP 16; TEMP 36.1; BMI 38.2
[2023-01-25 15:11] VITALS: BP 188/68; PULSE 85; RESP 18; TEMP 35.9; BMI 38.2
--- NOTE | 2023-01-26 13:38 | PCM.WC.PN ---
History of Present Illness Date of Service: 01/26/23 Chief Complaint: BLE wounds History of Wound: Patient is an 81-year-old female who resides at [facility]. She is referred by facility for evaluation and management of bilateral lower extremity wounds which have been ongoing for a week or so. She is well known to me as I just discharged her from [facility] for similar wounds about 1 month ago. At that time, she had bilateral posterior calf wounds which had fully healed at time of discharge. She was instructed to wear measured compression stockings to prevent recurrence. She states she obtained the measured compression stockings, but they seemed too tight. Instead, she has been wearing the tubigrips she has accumulated. Unfortunately, she bumped the back of her legs a week or so ago and the wounds have recurred in almost the same location as last time. She is not diabetic. She does not smoke. She is ambulatory and denies claudication type symptoms. She does have bilateral lower extremity edema. Serous drainage from the wounds and scattered fluid-filled blisters on her lower legs. She does still sleep in a chair, but tries to elevate her feet on a footstool. Subjective Subjective Swelling remains resolved with 3M wraps, she had them changed mid-week by nursing staff at facility. She reports that her RLE is causing much less discomfort, still with some discomfort from the LLE wound. Although the wound is fairly superior to the ankle, she feels like her shoes may be rubing against it and asks if we can pad the area more. She denies any N/V, F/C. Objective Data Objective Data Vital Signs: Vital Signs Temp Pulse Resp BP O2 Del Method 96.7 F L 85 18 188/68 H Room Air 01/25/23 15:11 01/25/23 15:11 01/25/23 15:11 01/25/23 15:11 01/25/23 15:11 Oxygen Delivery Method Room Air Weight: 196 lb Body Mass Index (BMI) 38.2 Charges/Coding Procedures Integumentary 111xxx-113xx: [id number] Otilia subq tissue 20 sq cm/< Physical Exam Const alert, oriented x3 and no apparent distress Orientation / Consciousness: confused Resp normal respiratory effort, normal air movement, no retractions and no use of accessory muscles Effort and Inspection: able to speak in complete sentences; Negative for stridor or audible wheezes Extremity Extremity Narrative: Bilateral lower extremity edema significantly improved from last week, erythema resolved. Appropriate color and normal capillary refill. Skin Wounds: wounds noted Wound Narrative: Right posterior calf now only 1 single wound (was previously a cluster of wounds) and Left posterior calf wound is smaller. Geary granulation tissue at the bases, minimal slough. Neuro oriented x3, CN's II-XII intact bilaterally, moves all extremities and no focal motor deficits Psych Appearance: grossly normal Attitude: calm Debridement Note Debridement Note Wound debrided: L posterior calf cluster Laterality: Left Type of Debridement: Excisional debridement Anesthesia Used: 5% Lidocaine Gel Depth: Down to and including healthy tissue Percentage of wound debrided: 100 Instrument Used: 5mm curette Tissue Removed: slough, devitalized tissue Amount of bleeding with debridement: Mild Bleeding Controlled with: Pressure Patient tolerated procedure: Patient tolerated procedure well Post-Debridement Measurements and Additional Note: Post-Debridement Measurements/Treatment - Nurse 1 - General Ulcer Assessment Start: 01/25/23 15:11 Freq: Status: Active Protocol: STACIA Activity Type Activity Date Activity User E-sign Co-sign Detail Recorded Client Recorded Date Recorded By Document 01/25/23 15:11 KW [id number] 01/25/23 15:29 KW 01/25/23 15:11 - Today's Visit Information Type of service Follow-up Visit (Physician/INTERLOCKING INSTALLER ) Arrival Mode Ambulatory, Walker Height and Weight Body Mass Index (BMI) 38.2 BMI Classification Obese Vital Signs Temperature (97.8 F-99.1 F) 96.7 F L Temperature Source Temporal Pulse Rate (60-100) 85 Pulse Location Monitor Respiratory Rate (12-18) 18 Respiratory rate source Observation Oxygen Delivery Method Room Air Blood Pressure (90/60-120/80) 188/68 H Blood Pressure Mean (mm Hg) 108 Source Monitor Position Sitting Blood Pressure Location Left Arm History Since Last Visit- (Skip if this is Patient's initial visit) Have you changed medications since your No last visit? Any new allergies or adverse reactions No Had a fall/change in ADL's that may No increase risk of falls Signs or symptoms of abuse and/or No neglect since last visit Have you been in the hospital since your No last visit? Has dressing in place as prescribed Yes Has compression in place as prescribed Yes Has offloadiing in place as prescribed No Experienced any changes in pain level or No management Left Footwear Regular Shoe Right Footwear Regular Shoe Pain Scale: 0-10 Numeric Is Patient Pain Free? Yes WC - Nurse 1 - General Ulcer Measurement Start: 01/25/23 15:11 Freq: Status: Active Protocol: Activity Type Activity Date Activity User E-sign Co-sign Detail Recorded Client Recorded Date Recorded By Document 01/25/23 15:11 [id number] 01/25/23 15:29 01/25/23 15:11 Wound Center Nurse 1 #5- L LAT POST LE -Current Size (cm) - Length 3.2 -Current Size (cm) - Width 1.2 -Current Size (cm) - Depth 0.1 -Total Square Cm 3.84 -Exudate Amt Medium -Exudate Type Yellow/Green -Wound Margin Distinct, Outline Attached -Granulation Amt Large (67-100%) -Granulation Quality Red -Necrosis Amt Small (1-33%) -Necrotic Tissue Type Adherent Slough -Texture (Maryann-wound Skin Appearance) Assessed -Moisture (Maryann-wound Skin Appearance) Assessed -Color (Maryann-wound Skin Appearance) Assessed -Temperature (Maryann-wound Skin No Abnormality Appearance) (Pt Warm) -Ulcer Cleansing Soap and Water -Anesthetic Used 5% Lidocaine Gel #3- R CALF CLUSTER -Current Size (cm) - Length 1.9 -Current Size (cm) - Width 0.9 -Current Size (cm) - Depth 0.1 -Total Square Cm 1.71 -Exudate Amt Small -Exudate Type Serosanguineous -Wound Margin Distinct, Outline Attached -Granulation Amt Small (1-33%) -Granulation Quality Red -Necrosis Amt Small (1-33%) -Necrotic Tissue Type Adherent Slough -Texture (Maryann-wound Skin Appearance) Assessed -Moisture (Maryann-wound Skin Appearance) Assessed -Color (Maryann-wound Skin Appearance) Assessed -Temperature (Maryann-wound Skin No Abnormality Appearance) (Pt Warm) -Ulcer Cleansing Soap and Water -Anesthetic Used 5% Lidocaine Gel Right Calf (cm) 35.2 Right Ankle (cm) 21.1 Left Calf (cm) 35 Left Ankle (cm) 21.5 WC - Nurse 2 - General Ulcer CM Notes Start: 01/25/23 15:11 Freq: Status: Active Protocol: Activity Type Activity Date Activity User E-sign Co-sign Detail Recorded Client Recorded Date Recorded By Document 01/25/23 17:18 PL [id number] 01/25/23 17:21 PL 01/25/23 17:18 Wound Center Nurse 2 #5- L LAT POST LE -Time 15:45 -Correct Patient Yes -Correct Side, Site, Position Yes -Correct Procedure Yes -Procedure Performed Yes -Type of Procedure Debridement -Clinical Debridement Subcutaneous -Tissue Removed Subcutaneous -Post Debridement (cm) - Length 3.2 -Post Debridement (cm) - Width 1.5 -Post Debridement (cm) - Depth 0.2 -Total Square (Post) (cm) 4.80 -Area of Debridement (cm) - Length 3.2 -Area of Debridement (cm) - Width 1.5 -Total Square (Area) (cm) 4.80 -Tunneling No -Undermining/Tunneling No -Circular Undermining No -Wound/Ulcer Outcome Not Healed -Ulcer Cleansing Rinsed/ Irrigated with Saline -Foul Odor after Cleansing No -Bioengineered Tissue No -Bleeding Controlled with Pressure -Treatment Response Procedure Tolerated Well -Debridement - Subq, 1st 20sq cm No #3- R CALF CLUSTER -Time 15:45 -Correct Patient Yes -Correct Side, Site, Position Yes -Correct Procedure Yes -Procedure Performed Yes -Type of Procedure Debridement -Clinical Debridement Subcutaneous -Tissue Removed Subcutaneous -Post Debridement (cm) - Length 1.8 -Post Debridement (cm) - Width 0.8 -Post Debridement (cm) - Depth 0.2 -Total Square (Post) (cm) 1.44 -Area of Debridement (cm) - Length 1.8 -Area of Debridement (cm) - Width 0.8 -Total Square (Area) (cm) 1.44 -Tunneling No -Undermining/Tunneling No -Circular Undermining No -Wound/Ulcer Outcome Not Healed -Ulcer Cleansing Rinsed/ Irrigated with Saline -Foul Odor after Cleansing No -Bioengineered Tissue No -Bleeding Controlled with Pressure -Treatment Response Procedure Tolerated Well -Debridement - Subq, 1st 20sq cm Yes Pain Scale: 0-10 Numeric Is Patient Pain Free? Yes WC - Nurse 3 - General Ulcer D/C NN Start: 01/25/23 15:11 Freq: Status: Active Protocol: Activity Type Activity Date Activity User E-sign Co-sign Detail Recorded Client Recorded Date Recorded By Document 01/25/23 16:00 DL [id number] 01/25/23 16:03 DL 01/25/23 16:00 Wound Care Center Nurse 3 #5- L LAT POST LE -Ulcer Cleansing Rinsed/ Irrigated with Saline -Foul Odor after Cleansing No -Primary Dressing Applied Aquacel Extra -Primary Dressing Covered/Secured with Dry Gauze -Other Covering abd -Aquacel Extra 1 #3- R CALF CLUSTER -Ulcer Cleansing Rinsed/ Irrigated with Saline -Foul Odor after Cleansing No -Other Dressing aquacel -Primary Dressing Covered/Secured with Dry Gauze, Secured with Tape van -Multi-Layered Wrap Application Multi-Layer Comp - Bilat ($ ) -Stockings Yes Treatment Response Procedure Tolerated Well Pain Scale: 0-10 Numeric Is Patient Pain Free? Yes WC - Visit Discharge Discharge Condition Stable Ambulatory Status Ambulatory Transportation Private [facility] Facility Type Care Home Care Facility Orders Sent Yes Additional Wound Wound debrided: R posterior calf Laterality: Right Type of Debridement: Excisional debridement Anesthesia Used: 5% Lidocaine Gel Depth: Down to and including healthy tissue Percentage of wound debrided: 100 Instrument Used: 5mm curette Tissue Removed: slough, devitalized tissue Amount of bleeding with debridement: Mild Bleeding Controlled with: Pressure Patient tolerated procedure: Patient tolerated procedure well Assessment/Plan Assessment/Plan (1) Non-pressure chronic ulcer of left lower leg: CODE(S): L97.929 - Non-pressure chronic ulcer of unspecified part of left lower leg with unspecified severity (2) Non-pressure chronic ulcer of right lower leg: CODE(S): L97.919 - Non-pressure chronic ulcer of unspecified part of right lower leg with unspecified severity (3) Bilateral lower extremity edema: CODE(S): R60.0 - Localized edema PLAN: Plan Continue Aquacel to the wound bases and 3M wraps with super absorber. Will add an ABD pad between the layers over the L calf wound to add some padding as she requested, will see if this helps with her discomfort. SNF will remove and replace the 3M wraps half-way through the week. She was reminded to elevate her legs as much as possible whenever resting. If her legs rest against the chair, place a pillow underneath/behind them to reduce pressure to the area. Return to clinic in 1 week.
[2023-02-01 14:15] VITALS: BP 168/74; PULSE 81; RESP 16; TEMP 36.5; BMI 38.2
--- NOTE | 2023-02-02 08:50 | PN.PCM_ITS ---
History of Present Illness Date of Service: 02/02/23 Chief Complaint: BLE wounds History of Wound: Patient is an 81-year-old female who resides at [facility] living. She is referred by facility for evaluation and management of bilateral lower extremity wounds which have been ongoing for a week or so. She is well known to me as I just discharged her from [facility] for similar wounds about 1 month ago. At that time, she had bilateral posterior calf wounds which had fully healed at time of discharge. She was instructed to wear measured compression stockings to prevent recurrence. She states she obtained the measured compression stockings, but they seemed too tight. Instead, she had been wearing the tubigrips she has accumulated. Unfortunately, she bumped the back of her legs a week or so ago and the wounds have recurred in almost the same location as last time. She is not diabetic. She does not smoke. She is ambulatory and denies claudication type symptoms. She does have bilateral lower extremity edema. Serous drainage from the wounds and scattered fluid-filled blisters on her lower legs. She does still sleep in a chair, but tries to elevate her feet on a footstool. Subjective Subjective Received report from [facility] that patient was in the ER yesterday after an episode of altered mental status. The indicated concern for wound infection and inquired as to whether we would like to initiate antibiotics or allow PCP to do so. Patient does not have a good recollection of ER visit yesterday, but she reports to feeling okay today. She denies any new or worsening pain in the area of the wounds, denies N/V, F/C. Objective Data Objective Data Vital Signs: Vital Signs Temp Pulse Resp BP O2 Del Method 97.7 F L 81 16 168/74 H Room Air 02/01/23 14:15 02/01/23 14:15 02/01/23 14:15 02/01/23 14:15 02/01/23 14:15 Oxygen Delivery Method Room Air Weight: 196 lb Body Mass Index (BMI) 38.2 Charges/Coding Procedures Integumentary 111xxx-113xx: 88008 Otilia subq tissue 20 sq cm/< Physical Exam Const alert, oriented x3 and no apparent distress Orientation / Consciousness: confused Resp normal respiratory effort, normal air movement, no retractions and no use of accessory muscles Effort and Inspection: able to speak in complete sentences; Negative for stridor or audible wheezes Extremity Extremity Narrative: Bilateral lower extremity edema significantly improved from last week, erythema resolved. Appropriate color and normal capillary refill. Skin Wounds: wounds noted Wound Narrative: Right posterior calf now only 1 single wound (was previously a cluster of wounds) and Left posterior calf wound is smaller. [place] granulation tissue at the bases, minimal slough. There is mild erythema surrounding the L posterior calf wound, but this has been overall stable over the past several weeks. Neuro oriented x3, CN's II-XII intact bilaterally, moves all extremities and no focal motor deficits Psych Appearance: grossly normal Attitude: calm Debridement Note Debridement Note Wound debrided: L posterior calf Laterality: Left Type of Debridement: Excisional debridement Anesthesia Used: 5% Lidocaine Gel Depth: Down to and including healthy tissue Percentage of wound debrided: 100 Instrument Used: 5mm curette Tissue Removed: slough, devitalized tissue Amount of bleeding with debridement: Mild Bleeding Controlled with: Pressure Patient tolerated procedure: Patient tolerated procedure well Post-Debridement Measurements and Additional Note: Post-Debridement Measurements/Treatment - Nurse 1 - General Ulcer Assessment Start: 01/25/23 15:11 Freq: Status: Active Protocol: STACIA Activity Type Activity Date Activity User E-sign Co-sign Detail Recorded Client Recorded Date Recorded By Document 01/25/23 15:11 [id number] 01/25/23 15:29 Document 02/01/23 14:15 [facility] [id number] 02/01/23 14:28 [facility] 01/25/23 02/01/23 15:11 14:15 - Today's Visit Information Type of service Follow-up Visit Follow-up Visit (Physician/MANAGER CLINICAL SERVICES (Physician/MANAGER CLINICAL SERVICES ) ) Arrival Mode Ambulatory, Ambulatory, Walker Walker Transfer Assistance None Patient Identification Verified (Name & Yes ) Patient Requires Transmission-Based No Precautions Height and Weight Body Mass Index (BMI) 38.2 38.2 BMI Classification Obese Obese Vital Signs Temperature (97.8 F-99.1 F) 96.7 F L 97.7 F L Temperature Source Temporal Temporal Pulse Rate (60-100) 85 81 Pulse Location Monitor Monitor Respiratory Rate (12-18) 18 16 Respiratory rate source Observation Observation Oxygen Delivery Method Room Air Room Air Blood Pressure (90/60-120/80) 188/68 H 168/74 H Blood Pressure Mean (mm Hg) 108 105 Source Monitor Monitor Position Sitting Sitting Blood Pressure Location Left Arm Left Arm History Since Last Visit- (Skip if this is Patient's initial visit) Have you changed medications since your No last visit? Any new allergies or adverse reactions No Had a fall/change in ADL's that may No increase risk of falls Signs or symptoms of abuse and/or No neglect since last visit Have you been in the hospital since your No Yes last visit? Has dressing in place as prescribed Yes No Has compression in place as prescribed Yes No Has offloadiing in place as prescribed No N/A Experienced any changes in pain level or No No management Left Footwear Regular Shoe Diabetic Shoe Right Footwear Regular Shoe Diabetic Shoe Pain Scale: 0-10 Numeric Is Patient Pain Free? Yes Yes WC - Nurse 1 - General Ulcer Measurement Start: 01/25/23 15:11 Freq: Status: Active Protocol: Activity Type Activity Date Activity User E-sign Co-sign Detail Recorded Client Recorded Date Recorded By Document 01/25/23 15:11 [id number] 01/25/23 15:29 Document 02/01/23 14:15 [facility] [id number] 02/01/23 14:28 [facility] 01/25/23 02/01/23 15:11 14:15 Wound Center Nurse 1 #5- L LAT POST LE -Combined with other wound No -Current Size (cm) - Length 3.2 2.9 -Current Size (cm) - Width 1.2 1.4 -Current Size (cm) - Depth 0.1 0.1 -Total Square Cm 3.84 4.06 -Photo Taken No -Epithelialization Small 1-33% -Tunneling No -Undermining/Tunneling No -Circular Undermining No -Exudate Amt Medium Medium -Exudate Type Yellow/Green Serosanguineous -Wound Margin Distinct, Flat & Intact Outline Attached -Granulation Amt Large (67-100%) Large (67-100%) -Granulation Quality Red Red -Slough/Fibrin Yes -Necrosis Amt Small (1-33%) Small (1-33%) -Necrotic Tissue Type Adherent Slough Adherent Slough -Texture (Maryann-wound Skin Appearance) Assessed Assessed, Scarring -Moisture (Maryann-wound Skin Appearance) Assessed Assessed,Dry/ Scaly -Color (Maryann-wound Skin Appearance) Assessed Assessed -Temperature (Maryann-wound Skin No Abnormality No Abnormality Appearance) (Pt Warm) (Pt Warm) -Tenderness on Palpation (Maryann-wound No Skin Appearance) -Ulcer Cleansing Soap and Water Soap and Water -Foul Odor after Cleansing No -Anesthetic Used 5% Lidocaine 5% Lidocaine Gel Gel #3- R CALF CLUSTER -Combined with other wound No -Current Size (cm) - Length 1.9 0.1 -Current Size (cm) - Width 0.9 0.1 -Current Size (cm) - Depth 0.1 0.1 -Total Square Cm 1.71 0.01 -Epithelialization Large 67-100% -Exudate Amt Small None Present -Exudate Type Serosanguineous -Wound Margin Distinct, Outline Attached -Granulation Amt Small (1-33%) -Granulation Quality Red -Slough/Fibrin Yes -Necrosis Amt Small (1-33%) Small (1-33%) -Necrotic Tissue Type Adherent Slough Eschar -Texture (Maryann-wound Skin Appearance) Assessed Assessed, Scarring -Moisture (Maryann-wound Skin Appearance) Assessed No Abnormality, Dry/Scaly -Color (Maryann-wound Skin Appearance) Assessed Assessed -Temperature (Maryann-wound Skin No Abnormality No Abnormality Appearance) (Pt Warm) (Pt Warm) -Tenderness on Palpation (Maryann-wound No Skin Appearance) -Ulcer Cleansing Soap and Water Soap and Water -Foul Odor after Cleansing No -Anesthetic Used 5% Lidocaine 5% Lidocaine Gel Gel Lower Limb Edema Present Yes Right Calf (cm) 35.2 36.6 Right Ankle (cm) 21.1 21.9 Left Calf (cm) 35 34.2 Left Ankle (cm) 21.5 21.8 WC - Nurse 2 - General Ulcer CM Notes Start: 01/25/23 15:11 Freq: Status: Active Protocol: Activity Type Activity Date Activity User E-sign Co-sign Detail Recorded Client Recorded Date Recorded By Document 01/25/23 17:18 PL [id number] 01/25/23 17:21 PL Document 02/01/23 16:32 PL [id number] 02/01/23 16:33 PL 01/25/23 02/01/23 17:18 16:32 Wound Center Nurse 2 #5- L LAT POST LE -Time 15:45 14:39 -Correct Patient Yes Yes -Correct Side, Site, Position Yes Yes -Correct Procedure Yes Yes -Procedure Performed Yes Yes -Type of Procedure Debridement Debridement -Clinical Debridement Subcutaneous Subcutaneous -Tissue Removed Subcutaneous Subcutaneous -Post Debridement (cm) - Length 3.2 3.0 -Post Debridement (cm) - Width 1.5 1.3 -Post Debridement (cm) - Depth 0.2 0.1 -Total Square (Post) (cm) 4.80 3.90 -Area of Debridement (cm) - Length 3.2 3.0 -Area of Debridement (cm) - Width 1.5 1.3 -Total Square (Area) (cm) 4.80 3.90 -Tunneling No No -Undermining/Tunneling No No -Circular Undermining No No -Wound/Ulcer Outcome Not Healed Not Healed -Ulcer Cleansing Rinsed/ Rinsed/ Irrigated with Irrigated with Saline Saline -Foul Odor after Cleansing No No -Bioengineered Tissue No No -Bleeding Controlled with Pressure Pressure -Treatment Response Procedure Procedure Tolerated Well Tolerated Well -Debridement - Subq, 1st 20sq cm No No #3- R CALF CLUSTER -Time 15:45 14:39 -Correct Patient Yes Yes -Correct Side, Site, Position Yes Yes -Correct Procedure Yes Yes -Procedure Performed Yes Yes -Type of Procedure Debridement Debridement -Clinical Debridement Subcutaneous Subcutaneous -Tissue Removed Subcutaneous Subcutaneous -Post Debridement (cm) - Length 1.8 0.8 -Post Debridement (cm) - Width 0.8 0.7 -Post Debridement (cm) - Depth 0.2 0.1 -Total Square (Post) (cm) 1.44 0.56 -Area of Debridement (cm) - Length 1.8 0.8 -Area of Debridement (cm) - Width 0.8 0.7 -Total Square (Area) (cm) 1.44 0.56 -Tunneling No No -Undermining/Tunneling No No -Circular Undermining No No -Wound/Ulcer Outcome Not Healed Not Healed -Ulcer Cleansing Rinsed/ Rinsed/ Irrigated with Irrigated with Saline Saline -Foul Odor after Cleansing No No -Bioengineered Tissue No No -Bleeding Controlled with Pressure Pressure -Treatment Response Procedure Procedure Tolerated Well Tolerated Well -Debridement - Subq, 1st 20sq cm Yes Yes Pain Scale: 0-10 Numeric Is Patient Pain Free? Yes Yes WC - Nurse 3 - General Ulcer D/C NN Start: 01/25/23 15:11 Freq: Status: Active Protocol: Activity Type Activity Date Activity User E-sign Co-sign Detail Recorded Client Recorded Date Recorded By Document 01/25/23 16:00 DL [id number] 01/25/23 16:03 DL Document 02/01/23 15:07 [facility] [id number] 02/01/23 15:08 [facility] 01/25/23 02/01/23 16:00 15:07 Wound Care Center Nurse 3 #5- L LAT POST LE -Ulcer Cleansing Rinsed/ Rinsed/ Irrigated with Irrigated with Saline Saline -Foul Odor after Cleansing No No -Primary Dressing Applied Aquacel Extra Aquacel Extra -Other Dressing abd -Primary Dressing Covered/Secured with Dry Gauze -Other Covering abd -Aquacel Extra 1 1 #3- R CALF CLUSTER -Ulcer Cleansing Rinsed/ Rinsed/ Irrigated with Irrigated with Saline Saline -Foul Odor after Cleansing No No -Primary Dressing Applied Aquacel Extra -Other Dressing aquacel abd -Primary Dressing Covered/Secured with Dry Gauze, Secured with Tape -Aquacel Extra 0 van -Lotion applied to leg before Yes compression wrap -Multi-Layered Wrap Application Multi-Layer Multi-Layer Comp - Bilat ($ Comp - Bilat ($ ) ) -Stockings Yes Treatment Response Procedure Procedure Tolerated Well Tolerated Well Pain Scale: 0-10 Numeric Is Patient Pain Free? Yes Yes - Visit Discharge Discharge Condition Stable Stable Ambulatory Status Ambulatory Ambulatory, Walker Transportation Private [facility] Facility Type [employer] Engineer Care [facility] [employer] [facility] Engineer Care Facility Facility Orders Sent Yes Additional Wound Wound debrided: R posterior calf Laterality: Right Type of Debridement: Excisional debridement Anesthesia Used: 5% Lidocaine Gel Depth: Down to and including healthy tissue Percentage of wound debrided: 100 Instrument Used: 5mm curette Tissue Removed: slough, devitalized tissue Amount of bleeding with debridement: Mild Bleeding Controlled with: Pressure Patient tolerated procedure: Patient tolerated procedure well Assessment/Plan Assessment/Plan (1) Non-pressure chronic ulcer of left lower leg: CODE(S): L97.929 - Non-pressure chronic ulcer of unspecified part of left lower leg with unspecified severity (2) Non-pressure chronic ulcer of right lower leg: CODE(S): L97.919 - Non-pressure chronic ulcer of unspecified part of right lower leg with unspecified severity (3) Bilateral lower extremity edema: CODE(S): R60.0 - Localized edema PLAN: Plan In the ER, her workup was overall negative. 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 Did not note any purulent drainage or foul odor. However, did obtain wound cultures. Will prescribe antibiotics as indicated by the culture, but not inclined to prescribe empirically at this time. Wounds continue to improve in size and continue to have minimal slough with good granulation tissue. Her edema remains well controlled with 3M wraps. Continue Aquacel to the wound bases and 3M wraps with super absorber. Bandar C/nurse will remove and replace the 3M wraps usp through the week. She was reminded to elevate her legs as much as possible whenever resting. If her legs rest against the chair, place a pillow underneath/behind them to reduce pressure to the area. Return to clinic in 1 week.
[2023-02-08 15:35] VITALS: BP 146/77; PULSE 71; RESP 20; TEMP 36.4; BMI 38.2
--- NOTE | 2023-02-14 21:09 | PCM.WC.PN ---
History of Present Illness Date of Service: 02/08/23 Chief Complaint: BLE wounds History of Wound: Patient is an 81-year-old female who resides at [facility]. She is referred by facility for evaluation and management of bilateral lower extremity wounds which have been ongoing for a week or so. She is well known to me as I just discharged her from [facility] for similar wounds about 1 month ago. At that time, she had bilateral posterior calf wounds which had fully healed at time of discharge. She was instructed to wear measured compression stockings to prevent recurrence. She states she obtained the measured compression stockings, but they seemed too tight. Instead, she had been wearing the tubigrips she has accumulated. Unfortunately, she bumped the back of her legs a week or so ago and the wounds have recurred in almost the same location as last time. She is not diabetic. She does not smoke. She is ambulatory and denies claudication type symptoms. She does have bilateral lower extremity edema. Serous drainage from the wounds and scattered fluid-filled blisters on her lower legs. She does still sleep in a chair, but tries to elevate her feet on a footstool. Subjective Subjective Patient reports bilateral legs are overall feeling improved/stable. Dressing changes with no issues as far as she is aware. She tells us today about some sores on her bottom which have been present for a few months. She reports they have been applying what sounds like zinc paste to these areas, but she does not think they are getting any better. She tries to get up and walk around every now and then but she does spend a lot of time sitting in the activity area painting, doing puzzles, etc. Objective Data Objective Data Vital Signs: Vital Signs Temp Pulse Resp BP O2 Del Method 97.6 F L 71 20 H 146/77 H Room Air 02/08/23 15:35 02/08/23 15:35 02/08/23 15:35 02/08/23 15:35 02/01/23 14:15 Oxygen Delivery Method Room Air Weight: 196 lb Body Mass Index (BMI) 38.2 Lab / Micro Data Micro: Microbiology 02/02/23 Unknown Wound - Leg, Left Gram Stain - Final 02/02/23 Unknown Wound - Leg, Left Wound Culture - Final No growth aerobically. 02/02/23 Unknown Wound - Leg, Left Anaerobic Culture - Final No anaerobic bacteria isolated. Charges/Coding Procedures Integumentary [id number]: [id number] Otilia subq tissue 20 sq cm/< Physical Exam Const alert, oriented x3 and no apparent distress Orientation / Consciousness: confused Resp normal respiratory effort, normal air movement, no retractions and no use of accessory muscles Effort and Inspection: able to speak in complete sentences; Negative for stridor or audible wheezes Extremity Extremity Narrative: Bilateral lower extremity edema significantly improved from last week, erythema resolved. Appropriate color and normal capillary refill. Skin Wounds: wounds noted Wound Narrative: Right posterior calf wound now epithelialized. L posterior calf wound is stable in size. No significant redness, swelling, drainage. L buttock pressure wound with significant slough, stage II R buttock pressure wound cluster with significant stage II Neuro oriented x3, CN's II-XII intact bilaterally, moves all extremities and no focal motor deficits Psych Appearance: grossly normal Attitude: calm Debridement Note Debridement Note Wound debrided: L posterior calf Laterality: Left Type of Debridement: Excisional debridement Anesthesia Used: 5% Lidocaine Gel Depth: Down to and including healthy tissue Percentage of wound debrided: 100 Instrument Used: 5mm curette Tissue Removed: slough, devitalized tissue Amount of bleeding with debridement: Mild Bleeding Controlled with: Pressure Patient tolerated procedure: Patient tolerated procedure well Post-Debridement Measurements and Additional Note: Post-Debridement Measurements/Treatment - Nurse 1 - General Ulcer Assessment Start: 01/25/23 15:11 Freq: Status: Active Protocol: .PRACHI Activity Type Activity Date Activity User E-sign Co-sign Detail Recorded Client Recorded Date Recorded By Document 01/25/23 15:11 [id number] 01/25/23 15:29 Document 02/01/23 14:15 [facility] [id number] 02/01/23 14:28 [facility] Document 02/08/23 15:35 DL Desktop 02/08/23 15:49 DL 01/25/23 02/01/23 02/08/23 15:11 14:15 15:35 - Today's Visit Information Type of service Follow-up Visit Follow-up Visit Follow-up Visit (Physician/WAFER FAB OPERATOR (Physician/WAFER FAB OPERATOR (Physician/WAFER FAB OPERATOR ) ) ) Arrival Mode Ambulatory, Ambulatory, Ambulatory, Walker Walker Walker Transfer Assistance None None Patient Identification Verified (Name & Yes Yes ) Patient Requires Transmission-Based No Precautions Height and Weight Body Mass Index (BMI) 38.2 38.2 38.2 BMI Classification Obese Obese Obese Vital Signs Temperature (97.8 F-99.1 F) 96.7 F L 97.7 F L 97.6 F L Temperature Source Temporal Temporal Temporal Pulse Rate (60-100) 85 81 71 Pulse Location Monitor Monitor Monitor Respiratory Rate (12-18) 18 16 20 H Respiratory rate source Observation Observation Observation Oxygen Delivery Method Room Air Room Air Blood Pressure (90/60-120/80) 188/68 H 168/74 H 146/77 H Blood Pressure Mean (mm Hg) 108 105 100 Source Monitor Monitor Monitor Position Sitting Sitting Blood Pressure Location Left Arm Left Arm History Since Last Visit- (Skip if this is Patient's initial visit) Have you changed medications since your No No last visit? Any new allergies or adverse reactions No No Had a fall/change in ADL's that may No No increase risk of falls Signs or symptoms of abuse and/or No No neglect since last visit Have you been in the hospital since your No Yes No last visit? Has dressing in place as prescribed Yes No Yes Has compression in place as prescribed Yes No Yes Has offloadiing in place as prescribed No N/A N/A Experienced any changes in pain level or No No No management Left Footwear Regular Shoe Diabetic Shoe Right Footwear Regular Shoe Diabetic Shoe Pain Scale: 0-10 Numeric Is Patient Pain Free? Yes Yes Yes WC - Nurse 1 - General Ulcer Measurement Start: 01/25/23 15:11 Freq: Status: Active Protocol: Activity Type Activity Date Activity User E-sign Co-sign Detail Recorded Client Recorded Date Recorded By Document 01/25/23 15:11 [id number] 01/25/23 15:29 Document 02/01/23 14:15 [facility] [id number] 02/01/23 14:28 [facility] Document 02/08/23 15:35 DL Desktop 02/08/23 15:49 DL Edit Result 02/08/23 15:35 DL (1) Desktop 02/08/23 15:58 DL (1) #7 R Buttocks Cluster - Current Size (cm) - Length => 6 - Current Size (cm) - Width => 1.8 - Current Size (cm) - Depth => 0.1 - Total Square Cm => 10.8 - Photo Taken => Yes - Exudate Amt => Medium - Exudate Type => Serosanguineous - Wound Margin => Distinct, Outline => Attached - Granulation Amt => Medium (34-66%) - Granulation Quality => Red - Necrosis Amt => Medium (34-66%) - Necrotic Tissue Type => Adherent Slough - Structure Exposed => N/A - Texture (Maryann-wound Skin Appearance) => Scarring - Moisture (Maryann-wound Skin Appearance) => No Abnormality - Color (Maryann-wound Skin Appearance) => Erythema - Temperature (Maryann-wound Skin => No Abnormality (Pt Appearance) => Warm) - Tenderness on Palpation (Maryann-wound => No Skin Appearance) - Ulcer Cleansing => Soap and Water - Foul Odor after Cleansing => No - Anesthetic Used => 4% Lidocaine => Solution #6 L Buttocks Cluster - Current Size (cm) - Length => 2 - Current Size (cm) - Width => 0.8 - Current Size (cm) - Depth => 0.1 - Total Square Cm => 1.6 - Photo Taken => Yes - Exudate Amt => Small - Exudate Type => Serosanguineous - Wound Margin => Distinct, Outline => Attached - Granulation Amt => Small (1-33%) - Granulation Quality => Red - Necrosis Amt => Small (1-33%) - Necrotic Tissue Type => Adherent Slough - Structure Exposed => N/A - Texture (Maryann-wound Skin Appearance) => Scarring - Moisture (Maryann-wound Skin Appearance) => No Abnormality - Color (Maryann-wound Skin Appearance) => Erythema - Tenderness on Palpation (Maryann-wound => No Skin Appearance) - Ulcer Cleansing => Soap and Water - Foul Odor after Cleansing => No - Anesthetic Used => 5% Lidocaine Gel 01/25/23 02/01/23 02/08/23 15:11 14:15 15:35 Wound Center Nurse 1 #3- R CALF CLUSTER -Combined with other wound No -Current Size (cm) - Length 1.9 0.1 0.1 -Current Size (cm) - Width 0.9 0.1 0.1 -Current Size (cm) - Depth 0.1 0.1 0.1 -Total Square Cm 1.71 0.01 0.01 -Epithelialization Large 67-100% -Exudate Amt Small None Present None Present -Exudate Type Serosanguineous -Wound Margin Distinct, Indistinct, Non Outline -Visible Attached -Granulation Amt Small (1-33%) Large (67-100%) -Granulation Quality Red [place] -Slough/Fibrin Yes -Necrosis Amt Small (1-33%) Small (1-33%) None Present (0 %) -Necrotic Tissue Type Adherent Slough Eschar -Structure Exposed N/A -Texture (Maryann-wound Skin Appearance) Assessed Assessed, Scarring Scarring -Moisture (Maryann-wound Skin Appearance) Assessed No Abnormality, No Abnormality Dry/Scaly -Color (Maryann-wound Skin Appearance) Assessed Assessed Hemosiderin Staining -Temperature (Maryann-wound Skin No Abnormality No Abnormality No Abnormality Appearance) (Pt Warm) (Pt Warm) (Pt Warm) -Tenderness on Palpation (Maryann-wound No No Skin Appearance) -Ulcer Cleansing Soap and Water Soap and Water Soap and Water -Foul Odor after Cleansing No No -Anesthetic Used 5% Lidocaine 5% Lidocaine 5% Lidocaine Gel Gel Gel #7 R Buttocks Cluster -Current Size (cm) - Length 6 -Current Size (cm) - Width 1.8 -Current Size (cm) - Depth 0.1 -Total Square Cm 10.8 -Photo Taken Yes -Exudate Amt Medium -Exudate Type Serosanguineous -Wound Margin Distinct, Outline Attached -Granulation Amt Medium (34-66%) -Granulation Quality Red -Necrosis Amt Medium (34-66%) -Necrotic Tissue Type Adherent Slough -Structure Exposed N/A -Texture (Maryann-wound Skin Appearance) Scarring -Moisture (Maryann-wound Skin Appearance) No Abnormality -Color (Maryann-wound Skin Appearance) Erythema -Temperature (Maryann-wound Skin No Abnormality Appearance) (Pt Warm) -Tenderness on Palpation (Maryann-wound No Skin Appearance) -Ulcer Cleansing Soap and Water -Foul Odor after Cleansing No -Anesthetic Used 4% Lidocaine Solution #6 L Buttocks Cluster -Current Size (cm) - Length 2 -Current Size (cm) - Width 0.8 -Current Size (cm) - Depth 0.1 -Total Square Cm 1.6 -Photo Taken Yes -Exudate Amt Small -Exudate Type Serosanguineous -Wound Margin Distinct, Outline Attached -Granulation Amt Small (1-33%) -Granulation Quality Red -Necrosis Amt Small (1-33%) -Necrotic Tissue Type Adherent Slough -Structure Exposed N/A -Texture (Maryann-wound Skin Appearance) Scarring -Moisture (Maryann-wound Skin Appearance) No Abnormality -Color (Maryann-wound Skin Appearance) Erythema -Tenderness on Palpation (Maryann-wound No Skin Appearance) -Ulcer Cleansing Soap and Water -Foul Odor after Cleansing No -Anesthetic Used 5% Lidocaine Gel #5- L LAT POST LE -Combined with other wound No -Current Size (cm) - Length 3.2 2.9 1.1 -Current Size (cm) - Width 1.2 1.4 0.5 -Current Size (cm) - Depth 0.1 0.1 0.1 -Total Square Cm 3.84 4.06 0.55 -Photo Taken No -Epithelialization Small 1-33% -Tunneling No -Undermining/Tunneling No -Circular Undermining No -Exudate Amt Medium Medium Small -Exudate Type Yellow/Green Serosanguineous Serosanguineous -Wound Margin Distinct, Flat & Intact Distinct, Outline Outline Attached Attached -Granulation Amt Large (67-100%) Large (67-100%) Large (67-100%) -Granulation Quality Red Red [place] -Slough/Fibrin Yes -Necrosis Amt Small (1-33%) Small (1-33%) Small (1-33%) -Necrotic Tissue Type Adherent Slough Adherent Slough Adherent Slough -Structure Exposed N/A -Texture (Maryann-wound Skin Appearance) Assessed Assessed, Scarring Scarring -Moisture (Maryann-wound Skin Appearance) Assessed Assessed,Dry/ No Abnormality Scaly -Color (Maryann-wound Skin Appearance) Assessed Assessed Hemosiderin Staining -Temperature (Maryann-wound Skin No Abnormality No Abnormality No Abnormality Appearance) (Pt Warm) (Pt Warm) (Pt Warm) -Tenderness on Palpation (Maryann-wound No No Skin Appearance) -Ulcer Cleansing Soap and Water Soap and Water Not Cleansed -Foul Odor after Cleansing No No -Anesthetic Used 5% Lidocaine 5% Lidocaine 5% Lidocaine Gel Gel Gel Lower Limb Edema Present Yes Right Calf (cm) 35.2 36.6 34.8 Right Ankle (cm) 21.1 21.9 21.2 Left Calf (cm) 35 34.2 34.6 Left Ankle (cm) 21.5 21.8 22 WC - Nurse 2 - General Ulcer CM Notes Start: 01/25/23 15:11 Freq: Status: Active Protocol: Activity Type Activity Date Activity User E-sign Co-sign Detail Recorded Client Recorded Date Recorded By Document 01/25/23 17:18 PL [id number] 01/25/23 17:21 PL Document 02/01/23 16:32 PL [id number] 02/01/23 16:33 PL Document 02/08/23 17:00 PL [id number] 02/08/23 17:04 PL 01/25/23 02/01/23 02/08/23 17:18 16:32 17:00 Wound Center Nurse 2 #3- R CALF CLUSTER -Time 15:45 14:39 -Correct Patient Yes Yes -Correct Side, Site, Position Yes Yes -Correct Procedure Yes Yes -Procedure Performed Yes Yes No -Type of Procedure Debridement Debridement -Clinical Debridement Subcutaneous Subcutaneous -Tissue Removed Subcutaneous Subcutaneous -Post Debridement (cm) - Length 1.8 0.8 -Post Debridement (cm) - Width 0.8 0.7 -Post Debridement (cm) - Depth 0.2 0.1 -Total Square (Post) (cm) 1.44 0.56 -Area of Debridement (cm) - Length 1.8 0.8 -Area of Debridement (cm) - Width 0.8 0.7 -Total Square (Area) (cm) 1.44 0.56 -Tunneling No No -Undermining/Tunneling No No -Circular Undermining No No -Wound/Ulcer Outcome Not Healed Not Healed Healed- Epithelialized -Ulcer Cleansing Rinsed/ Rinsed/ Irrigated with Irrigated with Saline Saline -Foul Odor after Cleansing No No -Bioengineered Tissue No No -Bleeding Controlled with Pressure Pressure -Treatment Response Procedure Procedure Tolerated Well Tolerated Well -Debridement - Subq, 1st 20sq cm Yes Yes #7 R Buttocks Cluster -Time 16:00 -Correct Patient Yes -Correct Side, Site, Position Yes -Correct Procedure Yes -Procedure Performed Yes -Type of Procedure Debridement -Clinical Debridement Subcutaneous -Tissue Removed Subcutaneous -Post Debridement (cm) - Length 6.5 -Post Debridement (cm) - Width 2.1 -Post Debridement (cm) - Depth 0.1 -Total Square (Post) (cm) 13.65 -Area of Debridement (cm) - Length 6.5 -Area of Debridement (cm) - Width 2.1 -Total Square (Area) (cm) 13.65 -Tunneling No -Undermining/Tunneling No -Circular Undermining No -Wound/Ulcer Outcome Not Healed -Ulcer Cleansing Rinsed/ Irrigated with Saline -Foul Odor after Cleansing No -Bioengineered Tissue No -Bleeding Controlled with Pressure -Treatment Response Procedure Tolerated Well -Debridement - Subq, 1st 20sq cm No #6 L Buttocks Cluster -Time 16:00 -Correct Patient Yes -Correct Side, Site, Position Yes -Correct Procedure Yes -Procedure Performed Yes -Type of Procedure Debridement -Clinical Debridement Subcutaneous -Tissue Removed Subcutaneous -Post Debridement (cm) - Length 2.5 -Post Debridement (cm) - Width 0.7 -Post Debridement (cm) - Depth 2.5 -Total Square (Post) (cm) 1.75 -Area of Debridement (cm) - Length 2.5 -Area of Debridement (cm) - Width 0.7 -Total Square (Area) (cm) 1.75 -Tunneling No -Undermining/Tunneling No -Circular Undermining No -Wound/Ulcer Outcome Not Healed -Ulcer Cleansing Rinsed/ Irrigated with Saline -Foul Odor after Cleansing No -Bioengineered Tissue No -Bleeding Controlled with Pressure -Treatment Response Procedure Tolerated Well -Debridement - Subq, 1st 20sq cm Yes #5- L LAT POST LE -Time 15:45 14:39 16:00 -Correct Patient Yes Yes Yes -Correct Side, Site, Position Yes Yes Yes -Correct Procedure Yes Yes Yes -Procedure Performed Yes Yes Yes -Type of Procedure Debridement Debridement Debridement -Clinical Debridement Subcutaneous Subcutaneous Subcutaneous -Tissue Removed Subcutaneous Subcutaneous Subcutaneous -Post Debridement (cm) - Length 3.2 3.0 2.0 -Post Debridement (cm) - Width 1.5 1.3 1.7 -Post Debridement (cm) - Depth 0.2 0.1 0.2 -Total Square (Post) (cm) 4.80 3.90 3.40 -Area of Debridement (cm) - Length 3.2 3.0 2.0 -Area of Debridement (cm) - Width 1.5 1.3 1.7 -Total Square (Area) (cm) 4.80 3.90 3.40 -Tunneling No No No -Undermining/Tunneling No No No -Circular Undermining No No No -Wound/Ulcer Outcome Not Healed Not Healed Not Healed -Ulcer Cleansing Rinsed/ Rinsed/ Rinsed/ Irrigated with Irrigated with Irrigated with Saline Saline Saline -Foul Odor after Cleansing No No No -Bioengineered Tissue No No No -Bleeding Controlled with Pressure Pressure Pressure -Treatment Response Procedure Procedure Procedure Tolerated Well Tolerated Well Tolerated Well -Debridement - Subq, 1st 20sq cm No No Yes Pain Scale: 0-10 Numeric Is Patient Pain Free? Yes Yes Yes WC - Nurse 3 - General Ulcer D/C NN Start: 01/25/23 15:11 Freq: Status: Active Protocol: Activity Type Activity Date Activity User E-sign Co-sign Detail Recorded Client Recorded Date Recorded By Document 01/25/23 16:00 DL [id number] 01/25/23 16:03 Document 02/01/23 15:07 [facility] [id number] 02/01/23 15:08 [facility] Document 02/08/23 16:26 DL Desktop 02/08/23 16:29 DL 01/25/23 02/01/23 02/08/23 16:00 15:07 16:26 Wound Care Center Nurse 3 #3- R CALF CLUSTER -Ulcer Cleansing Rinsed/ Rinsed/ Rinsed/ Irrigated with Irrigated with Irrigated with Saline Saline Saline -Foul Odor after Cleansing No No No -Primary Dressing Applied Aquacel Extra -Other Dressing aquacel abd aquacel ex -Primary Dressing Covered/Secured with Dry Gauze, Dry Gauze & Secured with Roll Gauze, Tape Secured with Tape -Aquacel Extra 0 #7 R Buttocks Cluster -Ulcer Cleansing Rinsed/ Irrigated with Saline -Foul Odor after Cleansing No -Primary Dressing Applied Mepilex Border, Promogran Pj Matter -Mepilex Border 1 -Promogran Pj Matter 1 #6 L Buttocks Cluster -Ulcer Cleansing Rinsed/ Irrigated with Saline -Foul Odor after Cleansing No -Primary Dressing Applied Mepilex Border -Other Dressing pj -Mepilex Border 1 #5- L LAT POST LE -Ulcer Cleansing Rinsed/ Rinsed/ Rinsed/ Irrigated with Irrigated with Irrigated with Saline Saline Saline -Foul Odor after Cleansing No No No -Primary Dressing Applied Aquacel Extra Aquacel Extra Aquacel Extra -Other Dressing abd -Primary Dressing Covered/Secured with Dry Gauze Dry Gauze & Roll Gauze, Secured with Tape -Other Covering abd -Aquacel Extra 1 1 1 van -Lotion applied to leg before Yes compression wrap -Multi-Layered Wrap Application Multi-Layer Multi-Layer Multi-Layer Comp - Bilat ($ Comp - Bilat ($ Comp - Bilat ($ ) ) ) -Stockings Yes Treatment Response Procedure Procedure Procedure Tolerated Well Tolerated Well Tolerated Well Pain Scale: 0-10 Numeric Is Patient Pain Free? Yes Yes Yes WC - Visit Discharge Discharge Condition Stable Stable Stable Ambulatory Status Ambulatory Ambulatory, Ambulatory, Walker Walker Transportation Private Auto ecf Private Auto Facility Type Skilled Nursing Care Skilled Nursing Care Skilled Nursing Care Facility Facility Facility Orders Sent Yes Yes Additional Wound Wound debrided: R buttock wound Laterality: Right Wound Grade/Stage: Stage II Type of Debridement: Excisional debridement Anesthesia Used: 5% Lidocaine Gel Depth: Down to and including healthy tissue Percentage of wound debrided: 100 Instrument Used: 5mm curette Tissue Removed: slough, devitalized tissue Amount of bleeding with debridement: Mild Bleeding Controlled with: Pressure Patient tolerated procedure: Patient tolerated procedure well Additional Wound Wound debrided: L buttock wound Laterality: Left Wound Grade/Stage: Stage II Type of Debridement: Excisional debridement Anesthesia Used: 5% Lidocaine Gel Depth: Down to and including healthy tissue Percentage of wound debrided: 100 Instrument Used: 5mm curette Tissue Removed: slough, devitalized tissue Amount of bleeding with debridement: Mild Bleeding Controlled with: Pressure Patient tolerated procedure: Patient tolerated procedure well Assessment/Plan Assessment/Plan (1) Non-pressure chronic ulcer of left lower leg: CODE(S): L97.929 - Non-pressure chronic ulcer of unspecified part of left lower leg with unspecified severity (2) Bilateral lower extremity edema: CODE(S): R60.0 - Localized edema (3) Pressure ulcer of right buttock, stage 2: CODE(S): L89.312 - Pressure ulcer of right buttock, stage 2 (4) Pressure ulcer of left buttock, stage 2: CODE(S): L89.322 - Pressure ulcer of left buttock, stage 2 PLAN: Plan Wound cultures from last week were negative, no antibiotics indicated. R lower leg wound is healed. L lower leg wound improved in size. Continue Aquacel to the wound bases and 3M wraps with super absorber. [facility]/nurse will remove and replace the 3M wraps nursing home through the week. Now this week, noted to have pressure ulcerations to bilateral buttocks. Both stage II. Will apply slightly moistened Pj to these wound beds, cover with foam dressing. Change at least daily or more often as needed if it becomes soiled. She was reminded to elevate her legs as much as possible whenever resting. If her legs rest against the chair, place a pillow underneath/behind them to reduce pressure to the area. She is advised to try to stand up and change positions at least once an hour, if possible, to offload pressure. In addition, will recommend facility to try to place foam pad in chair she sleeps in. Return to clinic in 1 week.
[2023-02-15 14:11] VITALS: BP 153/65; PULSE 85; RESP 18; TEMP 36.2; BMI 38.2
--- NOTE | 2023-02-16 12:12 | PCM.WC.PN ---
History of Present Illness Date of Service: 02/15/23 Chief Complaint: BLE wounds History of Wound: Patient is an 81-year-old female who resides at [facility]. She is referred by facility for evaluation and management of bilateral lower extremity wounds which have been ongoing for a week or so. She is well known to me as I just discharged her from [facility] for similar wounds about 1 month ago. At that time, she had bilateral posterior calf wounds which had fully healed at time of discharge. She was instructed to wear measured compression stockings to prevent recurrence. She states she obtained the measured compression stockings, but they seemed too tight. Instead, she had been wearing the tubigrips she has accumulated. Unfortunately, she bumped the back of her legs a week or so ago and the wounds have recurred in almost the same location as last time. She is not diabetic. She does not smoke. She is ambulatory and denies claudication type symptoms. She does have bilateral lower extremity edema. Serous drainage from the wounds and scattered fluid-filled blisters on her lower legs. She does still sleep in a chair, but tries to elevate her feet on a footstool. Subjective Subjective Patient is doing well this week, she reports less pain in her bottom. She denies any new or worsening pain in either her legs or her buttock, no N/V, F/C. Nursing reports from facility to note that they ran out of Pj a day or so prior to her visit. Objective Data Objective Data Vital Signs: Vital Signs Temp Pulse Resp BP O2 Del Method 97.2 F L 85 18 153/65 H Room Air 02/15/23 14:11 02/15/23 14:11 02/15/23 14:11 02/15/23 14:11 02/15/23 14:11 Oxygen Delivery Method Room Air Weight: 196 lb Body Mass Index (BMI) 38.2 Lab / Micro Data Micro: Microbiology 02/02/23 Unknown Wound - Leg, Left Gram Stain - Final 02/02/23 Unknown Wound - Leg, Left Wound Culture - Final No growth aerobically. 02/02/23 Unknown Wound - Leg, Left Anaerobic Culture - Final No anaerobic bacteria isolated. Charges/Coding Procedures Integumentary [id number]: [id number] Otilia subq tissue 20 sq cm/< Physical Exam Const alert, oriented x3 and no apparent distress Orientation / Consciousness: confused Resp normal respiratory effort, normal air movement, no retractions and no use of accessory muscles Effort and Inspection: able to speak in complete sentences; Negative for stridor or audible wheezes Extremity Extremity Narrative: Bilateral lower extremity edema significantly improved from last week, erythema resolved. Appropriate color and normal capillary refill. Skin Wounds: wounds noted Wound Narrative: L posterior calf wound decreased in size. No significant redness, swelling, drainage. L buttock pressure wound epithelialized. R buttock pressure wound cluster now only one open area remaining, very superficial. Neuro oriented x3, CN's II-XII intact bilaterally, moves all extremities and no focal motor deficits Psych Appearance: grossly normal Attitude: calm Debridement Note Debridement Note Wound debrided: L posterior calf Laterality: Left Type of Debridement: Excisional debridement Anesthesia Used: 5% Lidocaine Gel Depth: Down to and including healthy tissue Percentage of wound debrided: 100 Instrument Used: 5mm curette Tissue Removed: slough, devitalized tissue Amount of bleeding with debridement: Mild Bleeding Controlled with: Pressure Patient tolerated procedure: Patient tolerated procedure well Post-Debridement Measurements and Additional Note: Post-Debridement Measurements/Treatment - Nurse 1 - General Ulcer Assessment Start: 01/25/23 15:11 Freq: Status: Active Protocol: STACIA Activity Type Activity Date Activity User E-sign Co-sign Detail Recorded Client Recorded Date Recorded By Document 01/25/23 15:11 [id number] 01/25/23 15:29 KW Document 02/01/23 14:15 [facility] [id number] 02/01/23 14:28 [facility] Document 02/08/23 15:35 DL Desktop 02/08/23 15:49 DL Document 02/15/23 14:11 [facility] Desktop 02/15/23 14:25 [facility] 01/25/23 02/01/23 02/08/23 15:11 14:15 15:35 - Today's Visit Information Type of service Follow-up Visit Follow-up Visit Follow-up Visit (Physician/SOCIAL SCIENCES RESEARCH SCIENTIST (Physician/SOCIAL SCIENCES RESEARCH SCIENTIST (Physician/SOCIAL SCIENCES RESEARCH SCIENTIST ) ) ) Arrival Mode Ambulatory, Ambulatory, Ambulatory, Walker Walker Walker Transfer Assistance None None Patient Identification Verified (Name & Yes Yes ) Patient Requires Transmission-Based No Precautions Height and Weight Body Mass Index (BMI) 38.2 38.2 38.2 BMI Classification Obese Obese Obese Vital Signs Temperature (97.8 F-99.1 F) 96.7 F L 97.7 F L 97.6 F L Temperature Source Temporal Temporal Temporal Pulse Rate (60-100) 85 81 71 Pulse Location Monitor Monitor Monitor Respiratory Rate (12-18) 18 16 20 H Respiratory rate source Observation Observation Observation Oxygen Delivery Method Room Air Room Air Blood Pressure (90/60-120/80) 188/68 H 168/74 H 146/77 H Blood Pressure Mean (mm Hg) 108 105 100 Source Monitor Monitor Monitor Position Sitting Sitting Blood Pressure Location Left Arm Left Arm History Since Last Visit- (Skip if this is Patient's initial visit) Have you changed medications since your No No last visit? Any new allergies or adverse reactions No No Had a fall/change in ADL's that may No No increase risk of falls Signs or symptoms of abuse and/or No No neglect since last visit Have you been in the hospital since your No Yes No last visit? Has dressing in place as prescribed Yes No Yes Has compression in place as prescribed Yes No Yes Has offloadiing in place as prescribed No N/A N/A Experienced any changes in pain level or No No No management Left Footwear Regular Shoe Diabetic Shoe Right Footwear Regular Shoe Diabetic Shoe Pain Scale: 0-10 Numeric Is Patient Pain Free? Yes Yes Yes 02/15/23 14:11 WC - Today's Visit Information Type of service Follow-up Visit (Physician/SOCIAL SCIENCES RESEARCH SCIENTIST ) Arrival Mode Ambulatory, Walker Transfer Assistance None Patient Identification Verified (Name & Yes ) Patient Requires Transmission-Based No Precautions Height and Weight Body Mass Index (BMI) 38.2 BMI Classification Obese Vital Signs Temperature (97.8 F-99.1 F) 97.2 F L Temperature Source Temporal Pulse Rate (60-100) 85 Pulse Location Monitor Respiratory Rate (12-18) 18 Respiratory rate source Observation Oxygen Delivery Method Room Air Blood Pressure (90/60-120/80) 153/65 H Blood Pressure Mean (mm Hg) 94 Source Monitor Position Sitting Blood Pressure Location Right Arm History Since Last Visit- (Skip if this is Patient's initial visit) Have you changed medications since your No last visit? Any new allergies or adverse reactions No Had a fall/change in ADL's that may No increase risk of falls Signs or symptoms of abuse and/or No neglect since last visit Have you been in the hospital since your No last visit? Has dressing in place as prescribed Yes Has compression in place as prescribed Yes Has offloadiing in place as prescribed N/A Experienced any changes in pain level or No management Left Footwear Diabetic Shoe Right Footwear Diabetic Shoe Pain Scale: 0-10 Numeric Is Patient Pain Free? Yes WC - Nurse 1 - General Ulcer Measurement Start: 01/25/23 15:11 Freq: Status: Active Protocol: Activity Type Activity Date Activity User E-sign Co-sign Detail Recorded Client Recorded Date Recorded By Document 01/25/23 15:11 KW [id number] 01/25/23 15:29 KW Document 02/01/23 14:15 [facility] [id number] 02/01/23 14:28 [facility] Document 02/08/23 15:35 DL Desktop 02/08/23 15:49 DL Edit Result 02/08/23 15:35 DL (1) Desktop 02/08/23 15:58 DL Document 02/15/23 14:11 [facility] Desktop 02/15/23 14:25 [facility] (1) #6 L Buttocks Cluster - Current Size (cm) - Length => 2 - Current Size (cm) - Width => 0.8 - Current Size (cm) - Depth => 0.1 - Total Square Cm => 1.6 - Photo Taken => Yes - Exudate Amt => Small - Exudate Type => Serosanguineous - Wound Margin => Distinct, Outline => Attached - Granulation Amt => Small (1-33%) - Granulation Quality => Red - Necrosis Amt => Small (1-33%) - Necrotic Tissue Type => Adherent Slough - Structure Exposed => N/A - Texture (Maryann-wound Skin Appearance) => Scarring - Moisture (Maryann-wound Skin Appearance) => No Abnormality - Color (Maryann-wound Skin Appearance) => Erythema - Tenderness on Palpation (Maryann-wound => No Skin Appearance) - Ulcer Cleansing => Soap and Water - Foul Odor after Cleansing => No - Anesthetic Used => 5% Lidocaine Gel #7 R Buttocks Cluster - Current Size (cm) - Length => 6 - Current Size (cm) - Width => 1.8 - Current Size (cm) - Depth => 0.1 - Total Square Cm => 10.8 - Photo Taken => Yes - Exudate Amt => Medium - Exudate Type => Serosanguineous - Wound Margin => Distinct, Outline => Attached - Granulation Amt => Medium (34-66%) - Granulation Quality => Red - Necrosis Amt => Medium (34-66%) - Necrotic Tissue Type => Adherent Slough - Structure Exposed => N/A - Texture (Maryann-wound Skin Appearance) => Scarring - Moisture (Maryann-wound Skin Appearance) => No Abnormality - Color (Maryann-wound Skin Appearance) => Erythema - Temperature (Maryann-wound Skin => No Abnormality (Pt Appearance) => Warm) - Tenderness on Palpation (Maryann-wound => No Skin Appearance) - Ulcer Cleansing => Soap and Water - Foul Odor after Cleansing => No - Anesthetic Used => 4% Lidocaine => Solution 01/25/23 02/01/23 02/08/23 15:11 14:15 15:35 Wound Center Nurse 1 #6 L Buttocks Cluster -Combined with other wound -Current Size (cm) - Length 2 -Current Size (cm) - Width 0.8 -Current Size (cm) - Depth 0.1 -Total Square Cm 1.6 -Photo Taken Yes -Epithelialization -Exudate Amt Small -Exudate Type Serosanguineous -Wound Margin Distinct, Outline Attached -Granulation Amt Small (1-33%) -Granulation Quality Red -Necrosis Amt Small (1-33%) -Necrotic Tissue Type Adherent Slough -Structure Exposed N/A -Texture (Maryann-wound Skin Appearance) Scarring -Moisture (Maryann-wound Skin Appearance) No Abnormality -Color (Maryann-wound Skin Appearance) Erythema -Tenderness on Palpation (Maryann-wound No Skin Appearance) -Ulcer Cleansing Soap and Water -Foul Odor after Cleansing No -Anesthetic Used 5% Lidocaine Gel #3- R CALF CLUSTER -Combined with other wound No -Current Size (cm) - Length 1.9 0.1 0.1 -Current Size (cm) - Width 0.9 0.1 0.1 -Current Size (cm) - Depth 0.1 0.1 0.1 -Total Square Cm 1.71 0.01 0.01 -Epithelialization Large 67-100% -Exudate Amt Small None Present None Present -Exudate Type Serosanguineous -Wound Margin Distinct, Indistinct, Non Outline -Visible Attached -Granulation Amt Small (1-33%) Large (67-100%) -Granulation Quality [place] -Slough/Fibrin Yes -Necrosis Amt Small (1-33%) Small (1-33%) None Present (0 %) -Necrotic Tissue Type Adherent Slough Eschar -Structure Exposed N/A -Texture (Maryann-wound Skin Appearance) Assessed Assessed, Scarring Scarring -Moisture (Maryann-wound Skin Appearance) Assessed No Abnormality, No Abnormality Dry/Scaly -Color (Maryann-wound Skin Appearance) Assessed Assessed Hemosiderin Staining -Temperature (Maryann-wound Skin No Abnormality No Abnormality No Abnormality Appearance) (Pt Warm) (Pt Warm) (Pt Warm) -Tenderness on Palpation (Maryann-wound No No Skin Appearance) -Ulcer Cleansing Soap and Water Soap and Water Soap and Water -Foul Odor after Cleansing No No -Anesthetic Used 5% Lidocaine 5% Lidocaine 5% Lidocaine Gel Gel Gel #7 R Buttocks Cluster -Combined with other wound -Current Size (cm) - Length 6 -Current Size (cm) - Width 1.8 -Current Size (cm) - Depth 0.1 -Total Square Cm 10.8 -Photo Taken Yes -Epithelialization -Tunneling -Undermining/Tunneling -Circular Undermining -Exudate Amt Medium -Exudate Type Serosanguineous -Wound Margin Distinct, Outline Attached -Granulation Amt Medium (34-66%) -Granulation Quality Red -Slough/Fibrin -Necrosis Amt Medium (34-66%) -Necrotic Tissue Type Adherent Slough -Structure Exposed N/A -Texture (Maryann-wound Skin Appearance) Scarring -Moisture (Maryann-wound Skin Appearance) No Abnormality -Color (Maryann-wound Skin Appearance) Erythema -Temperature (Maryann-wound Skin No Abnormality Appearance) (Pt Warm) -Tenderness on Palpation (Maryann-wound No Skin Appearance) -Ulcer Cleansing Soap and Water -Foul Odor after Cleansing No -Anesthetic Used 4% Lidocaine Solution #5- L LAT POST LE -Combined with other wound No -Current Size (cm) - Length 3.2 2.9 1.1 -Current Size (cm) - Width 1.2 1.4 0.5 -Current Size (cm) - Depth 0.1 0.1 0.1 -Total Square Cm 3.84 4.06 0.55 -Photo Taken No -Epithelialization Small 1-33% -Tunneling No -Undermining/Tunneling No -Circular Undermining No -Exudate Amt Medium Medium Small -Exudate Type Yellow/Green Serosanguineous Serosanguineous -Wound Margin Distinct, Flat & Intact Distinct, Outline Outline Attached Attached -Granulation Amt Large (67-100%) Large (67-100%) Large (67-100%) -Granulation Quality Red [place] -Slough/Fibrin Yes -Necrosis Amt Small (1-33%) Small (1-33%) Small (1-33%) -Necrotic Tissue Type Adherent Slough Adherent Slough Adherent Slough -Structure Exposed N/A -Texture (Maryann-wound Skin Appearance) Assessed Assessed, Scarring Scarring -Moisture (Maryann-wound Skin Appearance) Assessed Assessed,Dry/ No Abnormality Scaly -Color (Maryann-wound Skin Appearance) Assessed Assessed Hemosiderin Staining -Temperature (Maryann-wound Skin No Abnormality No Abnormality No Abnormality Appearance) (Pt Warm) (Pt Warm) (Pt Warm) -Tenderness on Palpation (Maryann-wound No No Skin Appearance) -Ulcer Cleansing Soap and Water Soap and Water Not Cleansed -Foul Odor after Cleansing No No -Anesthetic Used 5% Lidocaine 5% Lidocaine 5% Lidocaine Gel Gel Gel Lower Limb Edema Present Yes Right Calf (cm) 35.2 36.6 34.8 Right Ankle (cm) 21.1 21.9 21.2 Left Calf (cm) 35 34.2 34.6 Left Ankle (cm) 21.5 21.8 22 02/15/23 14:11 Wound Center Nurse 1 #6 L Buttocks Cluster -Combined with other wound No -Current Size (cm) - Length 0 -Current Size (cm) - Width 0 -Current Size (cm) - Depth 0 -Total Square Cm 0 -Photo Taken -Epithelialization Large 67-100% -Exudate Amt -Exudate Type -Wound Margin -Granulation Amt -Granulation Quality -Necrosis Amt -Necrotic Tissue Type -Structure Exposed -Texture (Maryann-wound Skin Appearance) -Moisture (Maryann-wound Skin Appearance) -Color (Maryann-wound Skin Appearance) -Tenderness on Palpation (Maryann-wound Skin Appearance) -Ulcer Cleansing -Foul Odor after Cleansing -Anesthetic Used #3- R CALF CLUSTER -Combined with other wound -Current Size (cm) - Length -Current Size (cm) - Width -Current Size (cm) - Depth -Total Square Cm -Epithelialization -Exudate Amt -Exudate Type -Wound Margin -Granulation Amt -Granulation Quality -Slough/Fibrin -Necrosis Amt -Necrotic Tissue Type -Structure Exposed -Texture (Maryann-wound Skin Appearance) -Moisture (Maryann-wound Skin Appearance) -Color (Maryann-wound Skin Appearance) -Temperature (Maryann-wound Skin Appearance) -Tenderness on Palpation (Maryann-wound Skin Appearance) -Ulcer Cleansing -Foul Odor after Cleansing -Anesthetic Used #7 R Buttocks Cluster -Combined with other wound No -Current Size (cm) - Length 0.3 -Current Size (cm) - Width 0.3 -Current Size (cm) - Depth 0.1 -Total Square Cm 0.09 -Photo Taken No -Epithelialization Medium 34-66% -Tunneling No -Undermining/Tunneling No -Circular Undermining No -Exudate Amt Small -Exudate Type Sanguineous -Wound Margin Distinct, Outline Attached -Granulation Amt Large (67-100%) -Granulation Quality Red -Slough/Fibrin No -Necrosis Amt None Present (0 %) -Necrotic Tissue Type -Structure Exposed -Texture (Maryann-wound Skin Appearance) Assessed,Rash -Moisture (Maryann-wound Skin Appearance) Assessed -Color (Maryann-wound Skin Appearance) Assessed, Erythema -Temperature (Maryann-wound Skin No Abnormality Appearance) (Pt Warm) -Tenderness on Palpation (Maryann-wound No Skin Appearance) -Ulcer Cleansing Rinsed/ Irrigated with Saline -Foul Odor after Cleansing No -Anesthetic Used 5% Lidocaine Gel #5- L LAT POST LE -Combined with other wound No -Current Size (cm) - Length 0.9 -Current Size (cm) - Width 0.3 -Current Size (cm) - Depth 0.2 -Total Square Cm 0.27 -Photo Taken No -Epithelialization Small 1-33% -Tunneling No -Undermining/Tunneling No -Circular Undermining No -Exudate Amt Medium -Exudate Type Serosanguineous -Wound Margin -Granulation Amt Medium (34-66%) -Granulation Quality Red -Slough/Fibrin Yes -Necrosis Amt Medium (34-66%) -Necrotic Tissue Type Adherent Slough -Structure Exposed -Texture (Maryann-wound Skin Appearance) Assessed -Moisture (Maryann-wound Skin Appearance) Assessed,Dry/ Scaly -Color (Maryann-wound Skin Appearance) Assessed -Temperature (Maryann-wound Skin No Abnormality Appearance) (Pt Warm) -Tenderness on Palpation (Maryann-wound No Skin Appearance) -Ulcer Cleansing Soap and Water -Foul Odor after Cleansing No -Anesthetic Used 5% Lidocaine Gel Lower Limb Edema Present Right Calf (cm) 36.5 Right Ankle (cm) 21.4 Left Calf (cm) 34.7 Left Ankle (cm) 22 WC - Nurse 2 - General Ulcer CM Notes Start: 01/25/23 15:11 Freq: Status: Active Protocol: Activity Type Activity Date Activity User E-sign Co-sign Detail Recorded Client Recorded Date Recorded By Document 01/25/23 17:18 PL [id number] 01/25/23 17:21 PL Document 02/01/23 16:32 PL [id number] 02/01/23 16:33 PL Document 02/08/23 17:00 PL [id number] 02/08/23 17:04 PL Document 02/15/23 14:43 Desktop 02/15/23 14:53 01/25/23 02/01/23 02/08/23 17:18 16:32 17:00 Wound Center Nurse 2 #6 L Buttocks Cluster -Time 16:00 -Correct Patient Yes -Correct Side, Site, Position Yes -Correct Procedure Yes -Procedure Performed Yes -Type of Procedure Debridement -Clinical Debridement Subcutaneous -Tissue Removed Subcutaneous -Post Debridement (cm) - Length 2.5 -Post Debridement (cm) - Width 0.7 -Post Debridement (cm) - Depth 2.5 -Total Square (Post) (cm) 1.75 -Area of Debridement (cm) - Length 2.5 -Area of Debridement (cm) - Width 0.7 -Total Square (Area) (cm) 1.75 -Tunneling No -Undermining/Tunneling No -Circular Undermining No -Wound/Ulcer Outcome Not Healed -Ulcer Cleansing Rinsed/ Irrigated with Saline -Foul Odor after Cleansing No -Bioengineered Tissue No -Bleeding Controlled with Pressure -Treatment Response Procedure Tolerated Well -Debridement - Subq, 1st 20sq cm Yes #3- R CALF CLUSTER -Time 15:45 14:39 -Correct Patient Yes Yes -Correct Side, Site, Position Yes Yes -Correct Procedure Yes Yes -Procedure Performed Yes Yes No -Type of Procedure Debridement Debridement -Clinical Debridement Subcutaneous Subcutaneous -Tissue Removed Subcutaneous Subcutaneous -Post Debridement (cm) - Length 1.8 0.8 -Post Debridement (cm) - Width 0.8 0.7 -Post Debridement (cm) - Depth 0.2 0.1 -Total Square (Post) (cm) 1.44 0.56 -Area of Debridement (cm) - Length 1.8 0.8 -Area of Debridement (cm) - Width 0.8 0.7 -Total Square (Area) (cm) 1.44 0.56 -Tunneling No No -Undermining/Tunneling No No -Circular Undermining No No -Wound/Ulcer Outcome Not Healed Not Healed Healed- Epithelialized -Ulcer Cleansing Rinsed/ Rinsed/ Irrigated with Irrigated with Saline Saline -Foul Odor after Cleansing No No -Bioengineered Tissue No No -Bleeding Controlled with Pressure Pressure -Treatment Response Procedure Procedure Tolerated Well Tolerated Well -Debridement - Subq, 1st 20sq cm Yes Yes #7 R Buttocks Cluster -Time 16:00 -Correct Patient Yes -Correct Side, Site, Position Yes -Correct Procedure Yes -Procedure Performed Yes -Type of Procedure Debridement -Clinical Debridement Subcutaneous -Tissue Removed Subcutaneous -Post Debridement (cm) - Length 6.5 -Post Debridement (cm) - Width 2.1 -Post Debridement (cm) - Depth 0.1 -Total Square (Post) (cm) 13.65 -Area of Debridement (cm) - Length 6.5 -Area of Debridement (cm) - Width 2.1 -Total Square (Area) (cm) 13.65 -Tunneling No -Undermining/Tunneling No -Circular Undermining No -Wound/Ulcer Outcome Not Healed -Ulcer Cleansing Rinsed/ Irrigated with Saline -Foul Odor after Cleansing No -Bioengineered Tissue No -Bleeding Controlled with Pressure -Treatment Response Procedure Tolerated Well -Debridement - Subq, 1st 20sq cm No #5- L LAT POST LE -Time 15:45 14:39 16:00 -Correct Patient Yes Yes Yes -Correct Side, Site, Position Yes Yes Yes -Correct Procedure Yes Yes Yes -Procedure Performed Yes Yes Yes -Type of Procedure Debridement Debridement Debridement -Clinical Debridement Subcutaneous Subcutaneous Subcutaneous -Tissue Removed Subcutaneous Subcutaneous Subcutaneous -Post Debridement (cm) - Length 3.2 3.0 2.0 -Post Debridement (cm) - Width 1.5 1.3 1.7 -Post Debridement (cm) - Depth 0.2 0.1 0.2 -Total Square (Post) (cm) 4.80 3.90 3.40 -Area of Debridement (cm) - Length 3.2 3.0 2.0 -Area of Debridement (cm) - Width 1.5 1.3 1.7 -Total Square (Area) (cm) 4.80 3.90 3.40 -Tunneling No No No -Undermining/Tunneling No No No -Circular Undermining No No No -Wound/Ulcer Outcome Not Healed Not Healed Not Healed -Ulcer Cleansing Rinsed/ Rinsed/ Rinsed/ Irrigated with Irrigated with Irrigated with Saline Saline Saline -Foul Odor after Cleansing No No No -Bioengineered Tissue No No No -Bleeding Controlled with Pressure Pressure Pressure -Treatment Response Procedure Procedure Procedure Tolerated Well Tolerated Well Tolerated Well -Debridement - Subq, 1st 20sq cm No No Yes Pain Scale: 0-10 Numeric Is Patient Pain Free? Yes Yes Yes 02/15/23 14:43 Wound Center Nurse 2 #6 L Buttocks Cluster -Time 14:45 -Correct Patient Yes -Correct Side, Site, Position Yes -Correct Procedure Yes -Procedure Performed No -Type of Procedure -Clinical Debridement -Tissue Removed -Post Debridement (cm) - Length -Post Debridement (cm) - Width -Post Debridement (cm) - Depth -Total Square (Post) (cm) -Area of Debridement (cm) - Length -Area of Debridement (cm) - Width -Total Square (Area) (cm) -Tunneling -Undermining/Tunneling -Circular Undermining -Wound/Ulcer Outcome Healed- Epithelialized -Ulcer Cleansing -Foul Odor after Cleansing -Bioengineered Tissue -Bleeding Controlled with -Treatment Response -Debridement - Subq, 20sq cm #3- R CALF CLUSTER -Time -Correct Patient -Correct Side, Site, Position -Correct Procedure -Procedure Performed -Type of Procedure -Clinical Debridement -Tissue Removed -Post Debridement (cm) - Length -Post Debridement (cm) - Width -Post Debridement (cm) - Depth -Total Square (Post) (cm) -Area of Debridement (cm) - Length -Area of Debridement (cm) - Width -Total Square (Area) (cm) -Tunneling -Undermining/Tunneling -Circular Undermining -Wound/Ulcer Outcome -Ulcer Cleansing -Foul Odor after Cleansing -Bioengineered Tissue -Bleeding Controlled with -Treatment Response -Debridement - Subq, 1st 20sq cm #7 R Buttocks Cluster -Time 14:53 -Correct Patient Yes -Correct Side, Site, Position Yes -Correct Procedure Yes -Procedure Performed Yes -Type of Procedure Debridement -Clinical Debridement Subcutaneous -Tissue Removed Subcutaneous -Post Debridement (cm) - Length 0.5 -Post Debridement (cm) - Width 0.5 -Post Debridement (cm) - Depth 0.1 -Total Square (Post) (cm) 0.25 -Area of Debridement (cm) - Length 0.5 -Area of Debridement (cm) - Width 0.5 -Total Square (Area) (cm) 0.25 -Tunneling No -Undermining/Tunneling No -Circular Undermining -Wound/Ulcer Outcome Not Healed -Ulcer Cleansing Rinsed/ Irrigated with Saline -Foul Odor after Cleansing No -Bioengineered Tissue No -Bleeding Controlled with Pressure -Treatment Response Procedure Tolerated Well -Debridement - Subq, 1st 20sq cm Yes #5- L LAT POST LE -Time 14:44 -Correct Patient Yes -Correct Side, Site, Position Yes -Correct Procedure Yes -Procedure Performed Yes -Type of Procedure Debridement -Clinical Debridement Subcutaneous -Tissue Removed Subcutaneous -Post Debridement (cm) - Length 1.6 -Post Debridement (cm) - Width 0.5 -Post Debridement (cm) - Depth 0.1 -Total Square (Post) (cm) 0.80 -Area of Debridement (cm) - Length 1.6 -Area of Debridement (cm) - Width 0.5 -Total Square (Area) (cm) 0.80 -Tunneling No -Undermining/Tunneling No -Circular Undermining -Wound/Ulcer Outcome Not Healed -Ulcer Cleansing Rinsed/ Irrigated with Saline -Foul Odor after Cleansing No -Bioengineered Tissue No -Bleeding Controlled with Pressure -Treatment Response Procedure Tolerated Well -Debridement - Subq, 1st 20sq cm No Pain Scale: 0-10 Numeric Is Patient Pain Free? Yes WC - Nurse 3 - General Ulcer D/C NN Start: 01/25/23 15:11 Freq: Status: Active Protocol: Activity Type Activity Date Activity User E-sign Co-sign Detail Recorded Client Recorded Date Recorded By Document 01/25/23 16:00 DL [id number] 01/25/23 16:03 DL Document 02/01/23 15:07 [facility] [id number] 02/01/23 15:08 BMF Document 02/08/23 16:26 DL Desktop 02/08/23 16:29 DL Document 02/15/23 15:11 [facility] Desktop 02/15/23 15:12 [facility] 01/25/23 02/01/23 02/08/23 16:00 15:07 16:26 [facility] Nurse 3 #6 L Buttocks Cluster -Ulcer Cleansing Rinsed/ Irrigated with Saline -Foul Odor after Cleansing No -Primary Dressing Applied Mepilex Border -Other Dressing pj -Mepilex Border 1 #3- R CALF CLUSTER -Ulcer Cleansing Rinsed/ Rinsed/ Rinsed/ Irrigated with Irrigated with Irrigated with Saline Saline Saline -Foul Odor after Cleansing No No No -Primary Dressing Applied Aquacel Extra -Other Dressing aquacel abd aquacel ex -Primary Dressing Covered/Secured with Dry Gauze, Dry Gauze & Secured with Roll Gauze, Tape Secured with Tape -Aquacel Extra 0 #7 R Buttocks Cluster -Ulcer Cleansing Rinsed/ Irrigated with Saline -Foul Odor after Cleansing No -Primary Dressing Applied Mepilex Border, Promogran Pj Matter -Mepilex Border 1 -Promogran Pj Matter 1 #5- L LAT POST LE -Ulcer Cleansing Rinsed/ Rinsed/ Rinsed/ Irrigated with Irrigated with Irrigated with Saline Saline Saline -Foul Odor after Cleansing No No No -Primary Dressing Applied Aquacel Extra Aquacel Extra Aquacel Extra -Other Dressing abd -Primary Dressing Covered/Secured with Dry Gauze Dry Gauze & Roll Gauze, Secured with Tape -Other Covering abd -Aquacel Extra 1 1 1 van -Lotion applied to leg before Yes compression wrap -Multi-Layered Wrap Application Multi-Layer Multi-Layer Multi-Layer Comp - Bilat ($ Comp - Bilat ($ Comp - Bilat ($ ) ) ) -Stockings Yes Treatment Response Procedure Procedure Procedure Tolerated Well Tolerated Well Tolerated Well Pain Scale: 0-10 Numeric Is Patient Pain Free? Yes Yes Yes WC - Visit Discharge Discharge Condition Stable Stable Stable Ambulatory Status Ambulatory Ambulatory, Ambulatory, Walker Walker Transportation Private Auto ecf Private Auto Facility Type [facility] Facility Facility Other Orders Sent Yes Yes 02/15/23 15:11 Wound Care Center Nurse 3 #6 L Buttocks Cluster -Ulcer Cleansing -Foul Odor after Cleansing -Primary Dressing Applied -Other Dressing -Mepilex Border #3- R CALF CLUSTER -Ulcer Cleansing -Foul Odor after Cleansing -Primary Dressing Applied -Other Dressing -Primary Dressing Covered/Secured with -Aquacel Extra #7 R Buttocks Cluster -Ulcer Cleansing Rinsed/ Irrigated with Saline -Foul Odor after Cleansing No -Primary Dressing Applied Mepilex Border, Promogran Pj Matter -Mepilex Border 1 -Promogran Pj Matter 1 #5- L LAT POST LE -Ulcer Cleansing Rinsed/ Irrigated with Saline -Foul Odor after Cleansing No -Primary Dressing Applied Aquacel Extra -Other Dressing ABD -Primary Dressing Covered/Secured with Dry Gauze -Other Covering -Aquacel Extra 1 van -Lotion applied to leg before Yes compression wrap -Multi-Layered Wrap Application Multi-Layer Comp - Bilat ($ ) -Stockings Treatment Response Procedure Tolerated Well Pain Scale: 0-10 Numeric Is Patient Pain Free? Yes WC - Visit Discharge Discharge Condition Stable Ambulatory Status Ambulatory, Walker Transportation ECF Facility Type Other [facility] Orders Sent Additional Wound Wound debrided: R buttock wound Laterality: Right Wound Grade/Stage: Stage II Type of Debridement: Excisional debridement Anesthesia Used: 5% Lidocaine Gel Depth: Down to and including healthy tissue Percentage of wound debrided: 100 Instrument Used: 5mm curette Tissue Removed: slough, devitalized tissue Amount of bleeding with debridement: Mild Bleeding Controlled with: Pressure Patient tolerated procedure: Patient tolerated procedure well Assessment/Plan Assessment/Plan (1) Non-pressure chronic ulcer of left lower leg: CODE(S): L97.929 - Non-pressure chronic ulcer of unspecified part of left lower leg with unspecified severity (2) Bilateral lower extremity edema: CODE(S): R60.0 - Localized edema (3) Pressure ulcer of right buttock, stage 2: CODE(S): L89.312 - Pressure ulcer of right buttock, stage 2 (4) Pressure ulcer of left buttock, stage 2: CODE(S): L89.322 - Pressure ulcer of left buttock, stage 2 PLAN: Plan L lower leg wound improved in size. L buttock wound has healed. R buttock wound cluster significantly smaller with only one open area remaining. Continue Aquacel to the LLE wound followed by super absorber and 3M wraps for compression. [facility]/nurse will remove and replace the 3M wraps long term through the week. Continue to apply slightly moistened Pj to the R buttock wound, cover with foam dressing. Change at least daily or more often as needed if it becomes soiled. She was reminded to elevate her legs as much as possible whenever resting. If her legs rest against the chair, place a pillow underneath/behind them to reduce pressure to the area. She is advised to try to stand up and change positions at least once an hour, if possible, to offload pressure. In addition, will recommend facility to try to place foam pad in chair she sleeps in. Return to clinic in 1 week.
== END 2023-02-17 23:59 | disposition home or self-care (01) ==
LOC: WC 13:45
PROVIDERS: PCP Family Medicine; Referring Provider Family Medicine; Visit Provider Physician Assistant
DX: L89.322 Pressure ulcer of left buttock, stage 2 (principal); L89.312 Pressure ulcer of right buttock, stage 2; L97.919 Non-pressure chronic ulcer of unspecified part of right lower leg with unspecified severity; L97.929 Non-pressure chronic ulcer of unspecified part of left lower leg with unspecified severity; R60.0 Localized edema; Z79.899 Other long term (current) drug therapy
CPT/HCPCS: 11042; 29581; 87070; 87075; 87205

== ENCOUNTER → 2023-02-27 | Outpatient (REF) | payer MEDICARE, SELFPAY ==
[2023-02-27 09:18] LABS: Hematocrit 42.3 % (37-47); Hemoglobin 13.7 g/dL (12.0-15.0); Mean Corp Hgb Conc 32.4 g/dL (32-36); Mean Corpuscular Hgb 31.6 pg (27.0-32.0); Mean Corpuscular Volume 97.7 fL (81-99); Mean Platelet Vol. 12.2 fl (6.2-12.0); Platelet Count 238 K/mm3 (150-450); RBC Distribution Width CV 12.7 % (11.6-14.6); RBC Distribution Width SD 45.3 fl (35.1-43.9); Red Blood Count 4.33 M/mm3 (4.2-5.4); White Blood Count 28.3 K/mm3 (4.4-11.0)
[2023-02-27 09:32] LABS: ALB/GLOB Ratio 0.9 RATIO (0.9-2.4); AST(SGOT) 15 U/L (15-37); Alanine Aminotransfer ALT/SGPT 21 U/L (13-56); Albumin, Serum 3.4 g/dL (3.2-5.0); Alkaline Phosphatase 83 U/L (45-117); Anion Gap 23 (5-15); BUN 27 mg/dL (7-18); BUN/Creat Ratio 23.1 RATIO (10-20); Calcium,Total 9.1 mg/dL (8.5-10.1); Chloride 103 mmol/L (98-107); Creatinine, Serum 1.17 mg/dL (0.55-1.02); EST Glomerular Filtration Rate 47 mL/min (>60); Est Glom Filt Rate - Afr Amer 57 mL/min (>60); Globulin 3.6 g/dL (2.2-4.2); Glucose 205 mg/dL (74-106); Sodium Level 139 mmol/L (136-145)
== END ==
LOC: OLS.BROOKB 05:00
PROVIDERS: PCP Family Medicine; Visit Provider Family Medicine
DX: I10 Essential (primary) hypertension (principal); N39.0 Urinary tract infection, site not specified; F03.90 Unspecified dementia, unspecified severity, without behavioral disturbance, psychotic disturbance, mood disturbance, and anxiety; E11.9 Type 2 diabetes mellitus without complications
CPT/HCPCS: 36415; 80053; 83036; 85027

== ENCOUNTER → 2023-03-02 | Outpatient (REF) | payer MEDICARE, SELFPAY ==
[2023-03-02 08:09] LABS: Mucous, Urine 0 SEEN /hpf (<or=2+)
[2023-03-02 08:17] LABS: Color, Urine Yellow (Yellow); Glucose, Dipstick Normal (Normal); Ketone-Dipstick Negative (Negative); Leukocyte Esterase-Dipstick 500 /ul (Negative); Nitrite-Dipstick Negative (Negative); Occult Blood-Urine 10 /ul (Negative); Protein-Dipstick 15 mg/dl (Negative); Specific Gravity, Urine 1.015 (1.002-1.030); Urine Bilirubin Dipstick Negative (Negative); Urine Clarity Sl. Cloudy (Clear); Urine Urobilinogen Normal (Normal)
[2023-03-02 08:24] LABS: Bacteria 1+ /hpf (None Seen); Red Blood Cells-Urine 0-5 SEEN /hpf (0-5); Squamous Epithelial Cells - UA 5-10 SEEN /hpf (5-10); White Blood Cells 25-50 SEEN /hpf (0-5)
== END ==
LOC: OLS.BROOKB 02:00
PROVIDERS: PCP Family Medicine; Visit Provider Family Medicine
DX: N39.0 Urinary tract infection, site not specified (principal); F03.90 Unspecified dementia, unspecified severity, without behavioral disturbance, psychotic disturbance, mood disturbance, and anxiety; E11.9 Type 2 diabetes mellitus without complications; I10 Essential (primary) hypertension
CPT/HCPCS: 81001; 87086; 87088

== ENCOUNTER → 2023-03-05 | Outpatient (REF) | payer MEDICARE, SELFPAY ==
[2023-03-05 08:27] LABS: Anion Gap 6 (5-15); BUN 26 mg/dL (7-18); BUN/Creat Ratio 28.3 RATIO (10-20); Calcium,Total 9.1 mg/dL (8.5-10.1); Chloride 105 mmol/L (98-107); Creatinine, Serum 0.92 mg/dL (0.55-1.02); EST Glomerular Filtration Rate 62 mL/min (>60); Est Glom Filt Rate - Afr Amer 75 mL/min (>60); Glucose 186 mg/dL (74-106); Potassium 3.3 mmol/L (3.5-5.1); Sodium Level 140 mmol/L (136-145)
== END ==
LOC: OLS.BROOKB 05:00
PROVIDERS: PCP Family Medicine; Visit Provider Family Medicine
DX: I10 Essential (primary) hypertension (principal); E87.6 Hypokalemia; E11.9 Type 2 diabetes mellitus without complications; E66.9 Obesity, unspecified; L03.115 Cellulitis of right lower limb; Z79.2 Long term (current) use of antibiotics
CPT/HCPCS: 36415; 80048

== ENCOUNTER → 2023-03-08 | Outpatient (REF) | payer MEDICARE, SELFPAY ==
[2023-03-08 09:39] LABS: Anion Gap 5 (5-15); BUN 17 mg/dL (7-18); BUN/Creat Ratio 20.2 RATIO (10-20); Calcium,Total 8.6 mg/dL (8.5-10.1); Chloride 105 mmol/L (98-107); Creatinine, Serum 0.84 mg/dL (0.55-1.02); EST Glomerular Filtration Rate 69 mL/min (>60); Est Glom Filt Rate - Afr Amer 83 mL/min (>60); Glucose 274 mg/dL (74-106); Potassium 3.7 mmol/L (3.5-5.1); Sodium Level 140 mmol/L (136-145)
== END ==
LOC: OLS.BROOKB 05:00
PROVIDERS: PCP Family Medicine; Visit Provider Family Medicine
DX: I10 Essential (primary) hypertension (principal); E87.6 Hypokalemia; E11.9 Type 2 diabetes mellitus without complications; E66.9 Obesity, unspecified; L03.115 Cellulitis of right lower limb; Z79.2 Long term (current) use of antibiotics
CPT/HCPCS: 36415; 80048

== ENCOUNTER 2023-03-15 13:45 | Outpatient (RCR) | payer MEDICARE, SELFPAY ==
[2023-02-18 00:43] VITALS: BP 153/65; PULSE 85; RESP 18; TEMP 36.2; BMI 38.2
[2023-03-01 14:00] VITALS: BP 156/57; PULSE 68; RESP 16; TEMP 35.7; BMI 38.2
--- NOTE | 2023-03-02 13:45 | PCM.WC.PN ---
History of Present Illness Date of Service: 03/01/23 Chief Complaint: BLE wounds History of Wound: Patient is an 81-year-old female who resides at [place] assisted [facility]. She is referred by facility for evaluation and management of bilateral lower extremity wounds which have been ongoing for a week or so. She is well known to me as I just discharged her from [facility] for similar wounds about 1 month ago. At that time, she had bilateral posterior calf wounds which had fully healed at time of discharge. She was instructed to wear measured compression stockings to prevent recurrence. She states she obtained the measured compression stockings, but they seemed too tight. Instead, she had been wearing the tubigrips she has accumulated. Unfortunately, she bumped the back of her legs a week or so ago and the wounds have recurred in almost the same location as last time. She is not diabetic. She does not smoke. She is ambulatory and denies claudication type symptoms. She does have bilateral lower extremity edema. Serous drainage from the wounds and scattered fluid-filled blisters on her lower legs. She does still sleep in a chair, but tries to elevate her feet on a footstool. Subjective Subjective BLE edema continues to be well controlled with 3M wraps. She reports less pain overall in both her legs and her buttock. She reports dressing changes seem to be going fine, nursing does this for her at [place]. No N/V, F/C, new or worsening redness, drainage, swelling. Objective Data Objective Data Vital Signs: Vital Signs Temp Pulse Resp BP O2 Del Method 96.2 F L 68 16 156/57 H Room Air 03/01/23 14:00 03/01/23 14:00 03/01/23 14:00 03/01/23 14:00 03/01/23 14:00 Oxygen Delivery Method Room Air Weight: 196 lb Body Mass Index (BMI) 38.2 Charges/Coding Procedures Integumentary 111xxx-113xx: 36199 Otilia subq tissue 20 sq cm/< Physical Exam Const alert, oriented x3 and no apparent distress Orientation / Consciousness: confused Resp normal respiratory effort, normal air movement, no retractions and no use of accessory muscles Effort and Inspection: able to speak in complete sentences; Negative for stridor or audible wheezes Extremity Extremity Narrative: Bilateral lower extremity edema remains significantly improved with consistent compression. Skin Wounds: wounds noted Wound Narrative: L posterior calf wound again decreased in size. No significant redness, swelling, drainage. Recurrence of small portion of prior L buttock pressure wound. Very superficial, minimal slough, pink granulation tissue. R buttock pressure wound cluster slightly larger this week, remains superficial and with pink granulation tissue. Neuro oriented x3, CN's II-XII intact bilaterally, moves all extremities and no focal motor deficits Psych Appearance: grossly normal Attitude: calm Debridement Note Debridement Note Wound debrided: L posterior calf Laterality: Left Type of Debridement: Excisional debridement Anesthesia Used: 5% Lidocaine Gel Depth: Down to and including healthy tissue Percentage of wound debrided: 100 Instrument Used: 5mm curette Tissue Removed: slough, devitalized tissue Amount of bleeding with debridement: Mild Bleeding Controlled with: Pressure Patient tolerated procedure: Patient tolerated procedure well Post-Debridement Measurements and Additional Note: Post-Debridement Measurements/Treatment - Nurse 1 - General Ulcer Assessment Start: 03/01/23 14:00 Freq: Status: Active Protocol: STACIA Activity Type Activity Date Activity User E-sign Co-sign Detail Recorded Client Recorded Date Recorded By Document 03/01/23 14:00 [facility] Desktop 03/01/23 14:18 [facility] 03/01/23 14:00 WC - Today's Visit Information Type of service Follow-up Visit (Physician/[employer] ) Arrival Mode Ambulatory, Walker Transfer Assistance None Patient Requires Transmission-Based No Precautions Height and Weight Body Mass Index (BMI) 38.2 BMI Classification Obese Vital Signs Temperature (97.8 F-99.1 F) 96.2 F L Temperature Source Temporal Pulse Rate (60-100) 68 Pulse Location Monitor Respiratory Rate (12-18) 16 Respiratory rate source Observation Oxygen Delivery Method Room Air Blood Pressure (90/60-120/80) 156/57 H Blood Pressure Mean (mm Hg) 90 Source Monitor Position Sitting Blood Pressure Location Left Arm History Since Last Visit- (Skip if this is Patient's initial visit) Have you changed medications since your No last visit? Any new allergies or adverse reactions No Had a fall/change in ADL's that may No increase risk of falls Signs or symptoms of abuse and/or No neglect since last visit Have you been in the hospital since your No last visit? Has dressing in place as prescribed Yes Has compression in place as prescribed Yes Has offloadiing in place as prescribed N/A Experienced any changes in pain level or No management Left Footwear Diabetic Shoe Right Footwear Diabetic Shoe Pain Scale: 0-10 Numeric Is Patient Pain Free? Yes WC - Nurse 1 - General Ulcer Measurement Start: 03/01/23 14:00 Freq: Status: Active Protocol: Activity Type Activity Date Activity User E-sign Co-sign Detail Recorded Client Recorded Date Recorded By Document 03/01/23 14:00 [facility] Desktop 03/01/23 14:18 [facility] 03/01/23 14:00 Wound Center Nurse 1 #7 R Buttocks Cluster -Combined with other wound No -Current Size (cm) - Length 0.2 -Current Size (cm) - Width 0.2 -Current Size (cm) - Depth 0.1 -Total Square Cm 0.04 -Epithelialization Small 1-33% -Tunneling No -Undermining/Tunneling No -Circular Undermining No -Exudate Amt Small -Exudate Type Serosanguineous -Wound Margin Flat & Intact -Granulation Amt Large (67-100%) -Granulation Quality Red -Slough/Fibrin No -Necrosis Amt None Present (0 %) -Texture (Maryann-wound Skin Appearance) Assessed, Friable, Scarring -Moisture (Maryann-wound Skin Appearance) Assessed,Dry/ Scaly -Color (Maryann-wound Skin Appearance) Assessed, Erythema -Temperature (Maryann-wound Skin No Abnormality Appearance) (Pt Warm) -Tenderness on Palpation (Maryann-wound No Skin Appearance) -Ulcer Cleansing Soap and Water -Foul Odor after Cleansing No -Anesthetic Used 5% Lidocaine Gel #5- L LAT POST LE -Combined with other wound No -Current Size (cm) - Length 0.4 -Current Size (cm) - Width 0.3 -Current Size (cm) - Depth 0.2 -Total Square Cm 0.12 -Photo Taken No -Epithelialization Small 1-33% -Tunneling No -Undermining/Tunneling No -Circular Undermining No -Exudate Amt Medium -Exudate Type Serosanguineous -Wound Margin Flat & Intact -Granulation Amt Large (67-100%) -Granulation Quality Red -Slough/Fibrin No -Necrosis Amt None Present (0 %) -Texture (Maryann-wound Skin Appearance) Assessed, Scarring -Moisture (Maryann-wound Skin Appearance) Assessed,Dry/ Scaly -Color (Maryann-wound Skin Appearance) No Abnormality -Temperature (Maryann-wound Skin No Abnormality Appearance) (Pt Warm) -Tenderness on Palpation (Maryann-wound Yes Skin Appearance) -Ulcer Cleansing Soap and Water -Foul Odor after Cleansing No -Anesthetic Used 5% Lidocaine Gel Right Calf (cm) 35.5 Right Ankle (cm) 20.5 Left Calf (cm) 34 Left Ankle (cm) 20.7 WC - Nurse 2 - General Ulcer CM Notes Start: 03/01/23 14:00 Freq: Status: Active Protocol: Activity Type Activity Date Activity User E-sign Co-sign Detail Recorded Client Recorded Date Recorded By Document 03/01/23 17:33 PL [id number] 03/01/23 17:36 PL 03/01/23 17:33 Wound Center Nurse 2 #7 R Buttocks Cluster -Time 14:38 -Correct Patient Yes -Correct Side, Site, Position Yes -Correct Procedure Yes -Procedure Performed Yes -Type of Procedure Debridement -Clinical Debridement Subcutaneous -Tissue Removed Subcutaneous -Post Debridement (cm) - Length 1.0 -Post Debridement (cm) - Width 0.8 -Post Debridement (cm) - Depth 0.1 -Total Square (Post) (cm) 0.80 -Area of Debridement (cm) - Length 1.0 -Area of Debridement (cm) - Width 0.8 -Total Square (Area) (cm) 0.80 -Tunneling No -Undermining/Tunneling No -Circular Undermining No -Wound/Ulcer Outcome Not Healed -Ulcer Cleansing Rinsed/ Irrigated with Saline -Foul Odor after Cleansing No -Bioengineered Tissue No -Bleeding Controlled with Pressure -Treatment Response Procedure Tolerated Well -Debridement - Subq, 1st 20sq cm No #6 L Buttocks Cluster -Time 14:38 -Correct Patient Yes -Correct Side, Site, Position Yes -Correct Procedure Yes -Procedure Performed Yes -Type of Procedure Debridement -Clinical Debridement Subcutaneous -Tissue Removed Subcutaneous -Post Debridement (cm) - Length 0.3 -Post Debridement (cm) - Width 0.4 -Post Debridement (cm) - Depth 0.1 -Total Square (Post) (cm) 0.12 -Area of Debridement (cm) - Length 0.3 -Area of Debridement (cm) - Width 0.4 -Total Square (Area) (cm) 0.12 -Tunneling No -Undermining/Tunneling No -Circular Undermining No -Wound/Ulcer Outcome Not Healed -Ulcer Cleansing Rinsed/ Irrigated with Saline -Foul Odor after Cleansing No -Bioengineered Tissue No -Bleeding Controlled with Pressure -Treatment Response Procedure Tolerated Well -Debridement - Subq, 1st 20sq cm No #5- L LAT POST LE -Time 14:38 -Correct Patient Yes -Correct Side, Site, Position Yes -Correct Procedure Yes -Procedure Performed Yes -Type of Procedure Debridement -Clinical Debridement Subcutaneous -Tissue Removed Subcutaneous -Post Debridement (cm) - Length 0.5 -Post Debridement (cm) - Width 0.5 -Post Debridement (cm) - Depth 0.2 -Total Square (Post) (cm) 0.25 -Area of Debridement (cm) - Length 0.5 -Area of Debridement (cm) - Width 0.5 -Total Square (Area) (cm) 0.25 -Tunneling No -Undermining/Tunneling No -Circular Undermining No -Wound/Ulcer Outcome Not Healed -Ulcer Cleansing Rinsed/ Irrigated with Saline -Foul Odor after Cleansing No -Bioengineered Tissue No -Bleeding Controlled with Pressure -Treatment Response Procedure Tolerated Well -Debridement - Subq, 1st 20sq cm Yes Pain Scale: 0-10 Numeric Is Patient Pain Free? Yes - Nurse 3 - General Ulcer D/C NN Start: 03/01/23 14:00 Freq: Status: Active Protocol: Activity Type Activity Date Activity User E-sign Co-sign Detail Recorded Client Recorded Date Recorded By Document 03/01/23 15:11 [facility] Desktop 03/01/23 15:14 [facility] 03/01/23 15:11 Wound Care Center Nurse 3 #7 R Buttocks Cluster -Ulcer Cleansing Rinsed/ Irrigated with Saline -Foul Odor after Cleansing No -Primary Dressing Applied Mepilex Border, Promogran Nelsy Matter -Mepilex Border 2 -Promogran Nelsy Matter 1 #5- L LAT POST LE -Ulcer Cleansing Rinsed/ Irrigated with Saline -Foul Odor after Cleansing No -Primary Dressing Applied Aquacel Extra -Other Dressing ABD -Aquacel Extra 1 BLE -Multi-Layered Wrap Application Multi-Layer Comp - Bilat ($ ) Treatment Response Procedure Tolerated Well Pain Scale: 0-10 Numeric Is Patient Pain Free? Yes - Visit Discharge Discharge Condition Stable Ambulatory Status Ambulatory, Walker Transportation ECF TRANSPORT Facility Type [facility] Additional Wound Wound debrided: R buttock wound Laterality: Right Wound Grade/Stage: Stage II Type of Debridement: Excisional debridement Anesthesia Used: 5% Lidocaine Gel Depth: Down to and including healthy tissue Percentage of wound debrided: 100 Instrument Used: 5mm curette Tissue Removed: slough, devitalized tissue Amount of bleeding with debridement: Mild Bleeding Controlled with: Pressure Patient tolerated procedure: Patient tolerated procedure well Additional Wound Wound debrided: L buttock wound Laterality: Left Wound Grade/Stage: Stage II Type of Debridement: Excisional debridement Anesthesia Used: 5% Lidocaine Gel Depth: Down to and including healthy tissue Percentage of wound debrided: 100 Instrument Used: 5mm curette Tissue Removed: slough, devitalized tissue Amount of bleeding with debridement: Mild Bleeding Controlled with: Pressure Patient tolerated procedure: Patient tolerated procedure well Assessment/Plan Assessment/Plan (1) Non-pressure chronic ulcer of left lower leg: CODE(S): L97.929 - Non-pressure chronic ulcer of unspecified part of left lower leg with unspecified severity (2) Bilateral lower extremity edema: CODE(S): R60.0 - Localized edema (3) Pressure ulcer of right buttock, stage 2: CODE(S): L89.312 - Pressure ulcer of right buttock, stage 2 (4) Pressure ulcer of left buttock, stage 2: CODE(S): L89.322 - Pressure ulcer of left buttock, stage 2 PLAN: Plan L lower leg wound improved in size. L buttock wound has recurred. R buttock wound cluster slightly larger. Discussed with patient the importance of offloading and note was sent to nursing at [place] as well. She was reminded to shift positions or stand up and walk at least once every hour. She was reminded to use foam pads in hte chairs she sits on whenever possible. Continue Aquacel to the LLE wound followed by super absorber and 3M wraps for compression[facility] wraps twice weekly until her next appt here. Apply slightly moistened Nelsy to the R and L buttock wounds, cover with foam dressing. Change at least daily or more often as needed if it becomes soiled. Return to clinic in 2 weeks.
[2023-03-15 13:43] VITALS: BP 152/72; PULSE 76; RESP 18; TEMP 36.5; BMI 38.2
--- NOTE | 2023-03-16 08:22 | PCM.WC.PN ---
History of Present Illness Date of Service: 03/15/23 Chief Complaint: BLE wounds History of Wound: Patient is an 81-year-old female who resides at [facility]. She is referred by facility for evaluation and management of bilateral lower extremity wounds which have been ongoing for a week or so. She is well known to me as I just discharged her from [facility] for similar wounds about 1 month ago. At that time, she had bilateral posterior calf wounds which had fully healed at time of discharge. She was instructed to wear measured compression stockings to prevent recurrence. She states she obtained the measured compression stockings, but they seemed too tight. Instead, she had been wearing the tubigrips she has accumulated. Unfortunately, she bumped the back of her legs a week or so ago and the wounds have recurred in almost the same location as last time. She is not diabetic. She does not smoke. She is ambulatory and denies claudication type symptoms. She does have bilateral lower extremity edema. Serous drainage from the wounds and scattered fluid-filled blisters on her lower legs. She does still sleep in a chair, but tries to elevate her feet on a footstool. Subjective Subjective Patient reports she is doing well today. She denies any new or worsening pain in her lower legs or buttocks. She denies any N/V, F/C. She states that no issues reported by nursing staff at [facility] with dressing changes. We also did not receive any communication from nursing of concern about wounds or dressings. Objective Data Objective Data Vital Signs: Vital Signs Temp Pulse Resp BP O2 Del Method 97.7 F L 76 18 152/72 H Room Air 03/15/23 13:43 03/15/23 13:43 03/15/23 13:43 03/15/23 13:43 03/15/23 13:43 Oxygen Delivery Method Room Air Weight: 196 lb Body Mass Index (BMI) 38.2 Charges/Coding Visit Charges Office Visits / Consults: 36819 OV L3 Est Physical Exam Const alert, oriented x3 and no apparent distress Orientation / Consciousness: confused Resp normal respiratory effort, normal air movement, no retractions and no use of accessory muscles Effort and Inspection: able to speak in complete sentences; Negative for stridor or audible wheezes Extremity Extremity Narrative: Bilateral lower extremity edema remains significantly improved with consistent compression. Skin Wounds: wounds noted Wound Narrative: L posterior calf wound is healed. Prior buttock pressure wound clusters are both healed this week. In the most superior aspect of the gluteal cleft, there is what appears to be shear injury -- very superficial, linear wound with no slough, erythema, drainage, fluctuance/induration. Neuro oriented x3, CN's II-XII intact bilaterally, moves all extremities and no focal motor deficits Psych Appearance: grossly normal Attitude: calm Debridement Note Debridement Note No debridement was completed: No debridement was completed today Post-Debridement Measurements and Additional Note: Post-Debridement Measurements/Treatment - Nurse 1 - General Ulcer Assessment Start: 03/01/23 14:00 Freq: Status: Active Protocol: [email or web address] Activity Type Activity Date Activity User E-sign Co-sign Detail Recorded Client Recorded Date Recorded By Document 03/01/23 14:00 [id number] Desktop 03/01/23 14:18 BMF Document 03/15/23 13:43 KW Desktop 03/15/23 13:53 KW 03/01/23 03/15/23 14:00 13:43 - Today's Visit Information Type of service Follow-up Visit Follow-up Visit (Physician/SULFONATOR OPERATOR (Physician/SULFONATOR OPERATOR ) ) Arrival Mode Ambulatory, Ambulatory, Walker Walker Transfer Assistance None Patient Identification Verified (Name & Yes ) Patient Requires Transmission-Based No Precautions Height and Weight Body Mass Index (BMI) 38.2 38.2 BMI Classification Obese Obese Vital Signs Temperature (97.8 F-99.1 F) 96.2 F L 97.7 F L Temperature Source Temporal Temporal Pulse Rate (60-100) 68 76 Pulse Location Monitor Monitor Respiratory Rate (12-18) 16 18 Respiratory rate source Observation Observation Oxygen Delivery Method Room Air Room Air Blood Pressure (90/60-120/80) 156/57 H 152/72 H Blood Pressure Mean (mm Hg) 90 98 Source Monitor Monitor Position Sitting Semi-Fowlers Blood Pressure Location Left Arm Left Arm History Since Last Visit- (Skip if this is Patient's initial visit) Have you changed medications since your No No last visit? Any new allergies or adverse reactions No No Had a fall/change in ADL's that may No Yes increase risk of falls Signs or symptoms of abuse and/or No No neglect since last visit Have you been in the hospital since your No No last visit? Has dressing in place as prescribed Yes Yes Has compression in place as prescribed Yes Yes Has offloadiing in place as prescribed N/A No Experienced any changes in pain level or No No management Left Footwear Diabetic Shoe Regular Shoe Right Footwear Diabetic Shoe Regular Shoe Pain Scale: 0-10 Numeric Is Patient Pain Free? Yes Yes WC - Nurse 1 - General Ulcer Measurement Start: 03/01/23 14:00 Freq: Status: Active Protocol: Activity Type Activity Date Activity User E-sign Co-sign Detail Recorded Client Recorded Date Recorded By Document 03/01/23 14:00 BMF Desktop 03/01/23 14:18 BMF Document 03/15/23 13:43 KW Desktop 03/15/23 13:53 KW 03/01/23 03/15/23 14:00 13:43 Wound Center Nurse 1 #6 L Buttocks Cluster -Current Size (cm) - Length 0 -Current Size (cm) - Width 0 -Current Size (cm) - Depth 0 -Total Square Cm 0 #5- L LAT POST LE -Combined with other wound No -Current Size (cm) - Length 0.4 0 -Current Size (cm) - Width 0.3 0 -Current Size (cm) - Depth 0.2 0 -Total Square Cm 0.12 0 -Photo Taken No -Epithelialization Small 1-33% -Tunneling No -Undermining/Tunneling No -Circular Undermining No -Exudate Amt Medium -Exudate Type Serosanguineous -Wound Margin Flat & Intact -Granulation Amt Large (67-100%) -Granulation Quality Red -Slough/Fibrin No -Necrosis Amt None Present (0 %) -Texture (Maryann-wound Skin Appearance) Assessed, Scarring -Moisture (Maryann-wound Skin Appearance) Assessed,Dry/ Scaly -Color (Maryann-wound Skin Appearance) No Abnormality -Temperature (Maryann-wound Skin No Abnormality Appearance) (Pt Warm) -Tenderness on Palpation (Maryann-wound Yes Skin Appearance) -Ulcer Cleansing Soap and Water -Foul Odor after Cleansing No -Anesthetic Used 5% Lidocaine Gel #7 R Buttocks Cluster -Combined with other wound No -Current Size (cm) - Length 0.2 0 -Current Size (cm) - Width 0.2 0 -Current Size (cm) - Depth 0.1 0 -Total Square Cm 0.04 0 -Epithelialization Small 1-33% -Tunneling No -Undermining/Tunneling No -Circular Undermining No -Exudate Amt Small -Exudate Type Serosanguineous -Wound Margin Flat & Intact -Granulation Amt Large (67-100%) -Granulation Quality Red -Slough/Fibrin No -Necrosis Amt None Present (0 %) -Texture (Maryann-wound Skin Appearance) Assessed, Friable, Scarring -Moisture (Maryann-wound Skin Appearance) Assessed,Dry/ Scaly -Color (Maryann-wound Skin Appearance) Assessed, Erythema -Temperature (Maryann-wound Skin No Abnormality Appearance) (Pt Warm) -Tenderness on Palpation (Maryann-wound No Skin Appearance) -Ulcer Cleansing Soap and Water -Foul Odor after Cleansing No -Anesthetic Used 5% Lidocaine Gel Right Calf (cm) 35.5 43.4 Right Ankle (cm) 20.5 21.5 Left Calf (cm) 34 39.8 Left Ankle (cm) 20.7 22 WC - Nurse 2 - General Ulcer CM Notes Start: 03/01/23 14:00 Freq: Status: Active Protocol: Activity Type Activity Date Activity User E-sign Co-sign Detail Recorded Client Recorded Date Recorded By Document 03/01/23 17:33 PL [id number] 03/01/23 17:36 PL Document 03/15/23 16:49 PL [id number] 03/15/23 16:51 PL 03/01/23 03/15/23 17:33 16:49 Wound Center Nurse 2 #6 L Buttocks Cluster -Time 14:38 -Correct Patient Yes -Correct Side, Site, Position Yes -Correct Procedure Yes -Procedure Performed Yes No -Type of Procedure Debridement -Clinical Debridement Subcutaneous -Tissue Removed Subcutaneous -Post Debridement (cm) - Length 0.3 -Post Debridement (cm) - Width 0.4 -Post Debridement (cm) - Depth 0.1 -Total Square (Post) (cm) 0.12 -Area of Debridement (cm) - Length 0.3 -Area of Debridement (cm) - Width 0.4 -Total Square (Area) (cm) 0.12 -Tunneling No -Undermining/Tunneling No -Circular Undermining No -Wound/Ulcer Outcome Not Healed Healed- Epithelialized -Ulcer Cleansing Rinsed/ Irrigated with Saline -Foul Odor after Cleansing No -Bioengineered Tissue No -Bleeding Controlled with Pressure -Treatment Response Procedure Tolerated Well -Debridement - Subq, 1st 20sq cm No #5- L LAT POST LE -Time 14:38 -Correct Patient Yes -Correct Side, Site, Position Yes -Correct Procedure Yes -Procedure Performed Yes No -Type of Procedure Debridement -Clinical Debridement Subcutaneous -Tissue Removed Subcutaneous -Post Debridement (cm) - Length 0.5 -Post Debridement (cm) - Width 0.5 -Post Debridement (cm) - Depth 0.2 -Total Square (Post) (cm) 0.25 -Area of Debridement (cm) - Length 0.5 -Area of Debridement (cm) - Width 0.5 -Total Square (Area) (cm) 0.25 -Tunneling No -Undermining/Tunneling No -Circular Undermining No -Wound/Ulcer Outcome Not Healed Healed- Epithelialized -Ulcer Cleansing Rinsed/ Irrigated with Saline -Foul Odor after Cleansing No -Bioengineered Tissue No -Bleeding Controlled with Pressure -Treatment Response Procedure Tolerated Well -Debridement - Subq, 1st 20sq cm Yes #7 R Buttocks Cluster -Time 14:38 13:58 -Correct Patient Yes Yes -Correct Side, Site, Position Yes Yes -Correct Procedure Yes Yes -Procedure Performed Yes Yes -Type of Procedure Debridement Debridement -Clinical Debridement Subcutaneous Subcutaneous -Tissue Removed Subcutaneous Subcutaneous -Post Debridement (cm) - Length 1.0 1.4 -Post Debridement (cm) - Width 0.8 0.1 -Post Debridement (cm) - Depth 0.1 0.1 -Total Square (Post) (cm) 0.80 0.14 -Area of Debridement (cm) - Length 1.0 1.4 -Area of Debridement (cm) - Width 0.8 0.1 -Total Square (Area) (cm) 0.80 0.14 -Tunneling No No -Undermining/Tunneling No No -Circular Undermining No No -Wound/Ulcer Outcome Not Healed Not Healed -Ulcer Cleansing Rinsed/ Rinsed/ Irrigated with Irrigated with Saline Saline -Foul Odor after Cleansing No No -Bioengineered Tissue No No -Bleeding Controlled with Pressure Pressure -Treatment Response Procedure Procedure Tolerated Well Tolerated Well -Debridement - Subq, 1st 20sq cm No Yes Pain Scale: 0-10 Numeric Is Patient Pain Free? Yes Yes WC - Nurse 3 - General Ulcer D/C NN Start: 03/01/23 14:00 Freq: Status: Active Protocol: Activity Type Activity Date Activity User E-sign Co-sign Detail Recorded Client Recorded Date Recorded By Document 03/01/23 15:11 BMF Desktop 03/01/23 15:14 BMF Document 03/15/23 15:40 KW Desktop 03/15/23 15:41 KW 03/01/23 03/15/23 15:11 15:40 Wound Care Center Nurse 3 #5- L LAT POST LE -Ulcer Cleansing Rinsed/ Irrigated with Saline -Foul Odor after Cleansing No -Primary Dressing Applied Aquacel Extra -Other Dressing ABD -Aquacel Extra 1 #7 R Buttocks Cluster -Ulcer Cleansing Rinsed/ Irrigated with Saline -Foul Odor after Cleansing No -Primary Dressing Applied Mepilex Border, Mepilex Border, Promogran Promogran Nelsy Matter Nelsy Matter -Mepilex Border 2 1 -Promogran Nelsy Matter 1 1 BLE -Multi-Layered Wrap Application Multi-Layer Multi-Layer Comp - Bilat ($ Comp - Bilat ($ ) ) Treatment Response Procedure Tolerated Well Pain Scale: 0-10 Numeric Is Patient Pain Free? Yes Yes WC - Visit Discharge Discharge Condition Stable Stable Ambulatory Status Ambulatory, Ambulatory, Walker Walker Transportation [facility] TRANSPORT Private Auto Medication Reconcilliation completed & No provided to patient/care provider Clinical Summary of Care Provided Yes Facility Type Type Copy Examiner Care Facility Assessment/Plan Assessment/Plan (1) Bilateral lower extremity edema: CODE(S): R60.0 - Localized edema (2) Pressure injury of sacral region, stage 1: CODE(S): L89.151 - Pressure ulcer of sacral region, stage 1 PLAN: Plan L lower leg wound has healed. At this time, she has no wounds on her lower legs and her bilateral lower extremity edema remains well controlled with 3M wraps for compression. For now, will continue with 3M wraps changed twice weekly. We will measure for compression stockings and order these for patient. Plan will be to apply at next visit, if received, so we can ensure they are a good fit and will be good for long-term management of her chronic edema. Prior bilateral buttock pressure wound clusters have healed. Now with a new shear injury in the sacral area/superior portion of the gluteal cleft. Will apply Nelsy to this, cover with mepilex dressing and change daily or more often as needed if it becomes soiled. Emphasized again the importance of off-loading and other measures to avoid continued pressure/shear injury. Return to clinic in 2 weeks.
== END 2023-03-20 23:59 | disposition home or self-care (01) ==
LOC: WC 13:45
PROVIDERS: PCP Family Medicine; Referring Provider Family Medicine; Visit Provider Physician Assistant
DX: L89.312 Pressure ulcer of right buttock, stage 2 (principal); L89.322 Pressure ulcer of left buttock, stage 2; L97.929 Non-pressure chronic ulcer of unspecified part of left lower leg with unspecified severity; L89.151 Pressure ulcer of sacral region, stage 1; R60.0 Localized edema
CPT/HCPCS: 11042; 29581

== ENCOUNTER 2023-03-29 13:38 | Outpatient (RCR) | payer MEDICARE, SELFPAY ==
[2023-03-21 00:22] VITALS: BP 152/72; PULSE 76; RESP 18; TEMP 36.5; BMI 38.2
[2023-03-29 13:35] VITALS: BP 150/48; PULSE 68; RESP 16; TEMP 36.4; BMI 38.2
--- NOTE | 2023-04-03 09:56 | PN.PCM_ITS ---
History of Present Illness Date of Service: 03/29/23 Chief Complaint: BLE wounds History of Wound: Patient is an 81-year-old female who resides at [facility]. She is referred by facility for evaluation and management of bilateral lower extremity wounds which have been ongoing for a week or so. She is well known to me as I just discharged her from [facility] for similar wounds about 1 month ago. At that time, she had bilateral posterior calf wounds which had fully healed at time of discharge. She was instructed to wear measured compression stockings to prevent recurrence. She states she obtained the measured compression stockings, but they seemed too tight. Instead, she had been wearing the tubigrips she has accumulated. Unfortunately, she bumped the back of her legs a week or so ago and the wounds have recurred in almost the same location as last time. She is not diabetic. She does not smoke. She is ambulatory and denies claudication type symptoms. She does have bilateral lower extremity edema. Serous drainage from the wounds and scattered fluid-filled blisters on her lower legs. She does still sleep in a chair, but tries to elevate her feet on a footstool. Subjective Subjective Her lower extremity wounds remain healed. Her buttock wounds have healed this week. No new wounds. Objective Data Objective Data Vital Signs: Vital Signs Temp Pulse Resp BP O2 Del Method 97.5 F L 68 16 150/48 H Room Air 03/29/23 13:35 03/29/23 13:35 03/29/23 13:35 03/29/23 13:35 03/29/23 13:35 Oxygen Delivery Method Room Air Weight: 196 lb Body Mass Index (BMI) 38.2 Charges/Coding Visit Charges Office Visits / Consults: 72901 OV L3 Est Physical Exam Const alert, oriented x3 and no apparent distress Orientation / Consciousness: confused Resp normal respiratory effort, normal air movement, no retractions and no use of accessory muscles Effort and Inspection: able to speak in complete sentences; Negative for stridor or audible wheezes Extremity Extremity Narrative: Bilateral lower extremity edema remains significantly improved with consistent compression. Skin Wounds: wounds noted Wound Narrative: Buttock wound has healed. Neuro oriented x3, CN's II-XII intact bilaterally, moves all extremities and no focal motor deficits Psych Appearance: grossly normal Attitude: calm Debridement Note Debridement Note No debridement was completed: No debridement was completed today Assessment/Plan Assessment/Plan (1) Bilateral lower extremity edema: CODE(S): R60.0 - Localized edema (2) Pressure injury of sacral region, stage 1: CODE(S): L89.151 - Pressure ulcer of sacral region, stage 1 PLAN: Plan Bilateral lower extremity wounds remain healed and swelling remains well- controlled with compression. She was measured for compression stockings last week, these have been ordered and will be delivered to her facility. We will apply 3M wraps again today to be changed once weekly or more often as needed. I recommend continuing with 3M wraps until her compression stockings are received. Once compression stockings are received, these should be applied first thing in the morning and removed just before bed. She should continue to elevate her legs whenever resting. Apply moisturizing lotion to bilateral lower extremities every night after removing compression stockings. Buttock wounds have healed. May continue to apply barrier cream to this area. Continue with offloading measures including extra padding for chairs and bed, changing positions or standing up to move around a bit every hour. She is discharged from the wound care center at this time. Return as neded.
== END 2023-03-29 16:10 | disposition home or self-care (01) ==
LOC: WC 13:38
PROVIDERS: PCP Family Medicine; Referring Provider Family Medicine; Visit Provider Physician Assistant
DX: S81.801A Unspecified open wound, right lower leg, initial encounter (principal); S81.802A Unspecified open wound, left lower leg, initial encounter; R60.0 Localized edema; W22.09XA Striking against other stationary object, initial encounter
CPT/HCPCS: 29581; 99213; G0463

== ENCOUNTER → 2023-04-25 | Outpatient (REF) | payer MEDICARE, SELFPAY ==
[2023-04-25 08:11] LABS: Hemoglobin A1c 5.7 % (3.8-5.6)
== END ==
LOC: OLS.BROOKB 05:00
PROVIDERS: PCP Family Medicine; Visit Provider Family Medicine
DX: E11.9 Type 2 diabetes mellitus without complications (principal)
CPT/HCPCS: 36415; 83036

== ENCOUNTER → 2023-05-01 | Outpatient (REF) | payer MEDICARE, SELFPAY ==
[2023-05-01 09:13] LABS: Anion Gap 4 (5-15); BUN 25 mg/dL (7-18); BUN/Creat Ratio 30.6 RATIO (10-20); Calcium,Total 9.6 mg/dL (8.5-10.1); Chloride 109 mmol/L (98-107); Creatinine, Serum 0.82 mg/dL (0.55-1.02); EST Glomerular Filtration Rate 71 mL/min (>60); Est Glom Filt Rate - Afr Amer 86 mL/min (>60); Glucose 112 mg/dL (74-106); Potassium 4.4 mmol/L (3.5-5.1); Sodium Level 142 mmol/L (136-145)
== END ==
LOC: OLS.BROOKB 05:00
PROVIDERS: PCP Family Medicine; Visit Provider Family Medicine
DX: I10 Essential (primary) hypertension (principal)
CPT/HCPCS: 36415; 80048

== ENCOUNTER 2023-05-17 13:45 | Outpatient (RCR) | payer MEDICARE, SELFPAY ==
[2023-04-26 15:14] VITALS: BP 176/47; PULSE 64; RESP 16; TEMP 36.2
--- NOTE | 2023-04-27 15:24 | HP.PCM_ITS ---
History of Present Illness Date of Service: 04/26/23 Chief Complaint: LLE wound History of Wound: Patient is an 81-year-old female who resides at [facility] living. She is referred by facility for evaluation and management of left lower extremity wound which have been ongoing for a week or so. She is well known to me as I just discharged her from [facility] for similar wounds less than a month ago and had seen her for an episode of wounds in the same location once before then as well. At her last appointment, her bilateral calf wounds had healed completely and she was discharged with measured compression stockings to reduce risk of recurrence. She is not the most reliable historian, but does report having worn the compression stockings. She does have a compression stocking on the right leg. She is not sure why this wound developed, she cannot recall an injury, denies itching the area. She is not diabetic. She does not smoke. She is ambulatory and denies claudication type symptoms. The wound on her L posterolateral calf is superficial with serous drainage. There is erythema extending somewhat proximally from the wound edge, but there is no appreciable warmth, excessive tenderness, foul odor, focal swelling/fluctuance/induration. Denies N/V, F/C. She does have bilateral lower extremity edema. She does still sleep in a chair, but tries to elevate her feet on a footstool. [facility] Medical History Cellulitis and abscess of right leg CLL (chronic lymphocytic leukemia) Cognitive communication disorder Dementia Dementia with psychotic disturbance Glaucoma HTN (hypertension) Muscle weakness Obesity Home Medications acetaminophen 325 mg tablet 650 mg PO Q6H PRN Pain 09/15/22 [History Last Taken Unknown] bisacodyl 10 mg rectal suppository 10 mg DE DAILY PRN Constipation 09/15/22 [History Last Taken Unknown] furosemide 20 mg tablet 40 mg PO DAILY 09/15/22 [History Last Taken Unknown] hydroxyzine HCl 25 mg tablet 25 mg PO TID PRN ITCHING/ANXIETY 09/15/22 [History Last Taken Unknown] indapamide 2.5 mg tablet 2.5 mg PO DAILY 09/15/22 [History Last Taken Unknown] latanoprost 0.005 % eye drops 1 drp EACH EYE DAILY 09/15/22 [History Last Taken Unknown] nystatin 100,000 unit/gram topical powder 1 applic topical BID PRN Rash 09/15/22 [History Last Taken Unknown] ondansetron 4 mg disintegrating tablet 4 mg PO Q6H PRN Nausea 09/15/22 [History Last Taken Unknown] potassium chloride 20 mEq tablet,extended release 20 meq PO DAILY 09/15/22 [History Last Taken Unknown] sodium phosphates 19 gram-7 gram/118 mL enema (Fleet Enema) 118 ml DE DAILY PRN Constipation 09/15/22 [History Last Taken Unknown] venlafaxine 37.5 mg tablet 75 mg PO DAILY 09/15/22 [History Last Taken Unknown] Allergy/AdvReac Type Severity Reaction Status Date / Time timolol Allergy Other Verified 11/08/22 20:35 Social History Smoking Status: Never smoker Physical Exam Const alert, oriented x3 and no apparent distress Orientation / Consciousness: confused Resp normal respiratory effort, normal air movement, no retractions and no use of accessory muscles Effort and Inspection: able to speak in complete sentences; Negative for stridor or audible wheezes Extremity Extremity Narrative: Bilateral lower extremity edema remains significantly improved with consistent compression. Skin Wounds: wounds noted Wound Narrative: L posterolateral calf wound: superficial, mild amount of slough, serous drainage. Erythema at the wound edges extending proximally to the mid calf without any associated warmth, tenderness, fluctuance/induration, foul odor. Neuro oriented x3, CN's II-XII intact bilaterally, moves all extremities and no focal motor deficits Psych Appearance: grossly normal Attitude: calm Debridement Note Debridement Note Wound debrided: L posterolateral calf wound Laterality: Left Type of Debridement: Excisional debridement Anesthesia Used: 5% Lidocaine Gel Depth: Down to and including healthy tissue Percentage of wound debrided: 100 Instrument Used: 5mm curette Tissue Removed: slough, devitalized tissue Amount of bleeding with debridement: Mild Bleeding Controlled with: Pressure Patient tolerated procedure: Patient tolerated procedure well Post-Debridement Measurements and Additional Note: Post-Debridement Measurements/Treatment NIRU - Nurse 1 - General Ulcer Assessment Start: 04/26/23 15:14 Freq: Status: Active Protocol: STACIA Activity Type Activity Date Activity User E-sign Co-sign Detail Recorded Client Recorded Date Recorded By Document 04/26/23 15:14 JF Laptop 04/26/23 15:24 04/26/23 15:14 - Today's Visit Information Type of service Follow-up Visit (Physician/[employer] ) Arrival Mode Ambulatory, Walker Patient Identification Verified (Name & Yes ) Patient Requires Transmission-Based No Precautions Vital Signs Temperature (97.8 F-99.1 F) 97.1 F L Temperature Source Temporal Pulse Rate (60-100) 64 Pulse Location Monitor Respiratory Rate (12-18) 16 Respiratory rate source Observation Blood Pressure (90/60-120/80) 176/47 H Blood Pressure Mean 90 Source Monitor Position Semi-Fowlers Blood Pressure Location Right Arm History Since Last Visit- (Skip if this is Patient's initial visit) Have you changed medications since your No last visit? Any new allergies or adverse reactions No Had a fall/change in ADL's that may No increase risk of falls Signs or symptoms of abuse and/or No neglect since last visit Have you been in the hospital since your No last visit? Has dressing in place as prescribed Yes Has compression in place as prescribed Yes Has offloadiing in place as prescribed No Experienced any changes in pain level or No management Left Footwear Regular Shoe Right Footwear Regular Shoe Pain Scale: 0-10 Numeric Is Patient Pain Free? Yes - Nurse 1 - General Ulcer Measurement Start: 04/26/23 15:14 Freq: Status: Active Protocol: Activity Type Activity Date Activity User E-sign Co-sign Detail Recorded Client Recorded Date Recorded By Document 04/26/23 15:14 Laptop 04/26/23 15:24 04/26/23 15:14 Wound Center Nurse 1 #6 L Buttocks Cluster -Combined with other wound No -Current Size (cm) - Length 0.1 -Current Size (cm) - Width 0.1 -Current Size (cm) - Depth 0.1 -Total Square Cm 0.01 -Photo Taken No -Epithelialization Large 67-100% -Tunneling No -Undermining/Tunneling No -Circular Undermining No -Exudate Amt None Present #5- L LAT POST LE -Combined with other wound No -Current Size (cm) - Length 4.5 -Current Size (cm) - Width 4.2 -Current Size (cm) - Depth 0.1 -Total Square Cm 18.90 -Photo Taken No -Epithelialization Small 1-33% -Tunneling No -Undermining/Tunneling No -Circular Undermining No -Exudate Amt Medium -Exudate Type Serosanguineous -Wound Margin Flat & Intact -Granulation Amt Medium (34-66%) -Granulation Quality Red -Slough/Fibrin Yes -Necrosis Amt Small (1-33%) -Necrotic Tissue Type Adherent Slough -Structure Exposed N/A -Texture (Maryann-wound Skin Appearance) Assessed, Localized Edema -Moisture (Maryann-wound Skin Appearance) Assessed,Dry/ Scaly -Color (Maryann-wound Skin Appearance) Assessed -Temperature (Maryann-wound Skin No Abnormality Appearance) (Pt Warm) -Tenderness on Palpation (Maryann-wound No Skin Appearance) -Ulcer Cleansing Soap and Water -Anesthetic Used 4% Lidocaine Solution Lower Limb Edema Present Yes Right Calf (cm) 41.2 Right Ankle (cm) 22.3 WC - Nurse 2 - General Ulcer CM Notes Start: 04/26/23 15:14 Freq: Status: Active Protocol: Activity Type Activity Date Activity User E-sign Co-sign Detail Recorded Client Recorded Date Recorded By Document 04/26/23 16:33 PL [id number] 04/26/23 16:34 PL 04/26/23 16:33 Wound Center Nurse 2 #5- L LAT POST LE -Time 15:32 -Correct Patient Yes -Correct Side, Site, Position Yes -Correct Procedure Yes -Procedure Performed Yes -Type of Procedure Debridement -Clinical Debridement Subcutaneous -Tissue Removed Subcutaneous -Post Debridement (cm) - Length 4.5 -Post Debridement (cm) - Width 4.2 -Post Debridement (cm) - Depth 0.1 -Total Square (Post) (cm) 18.90 -Area of Debridement (cm) - Length 4.5 -Area of Debridement (cm) - Width 4.2 -Total Square (Area) (cm) 18.90 -Tunneling No -Undermining/Tunneling No -Circular Undermining No -Wound/Ulcer Outcome Not Healed -Ulcer Cleansing Rinsed/ Irrigated with Saline -Foul Odor after Cleansing No -Bioengineered Tissue No -Bleeding Controlled with Pressure -Treatment Response Procedure Tolerated Well -Debridement - Subq, 1st 20sq cm Yes Pain Scale: 0-10 Numeric Is Patient Pain Free? Yes WC - Nurse 3 - General Ulcer D/C NN Start: 04/26/23 15:14 Freq: Status: Active Protocol: Activity Type Activity Date Activity User E-sign Co-sign Detail Recorded Client Recorded Date Recorded By Document 04/26/23 15:53 KW Desktop 04/26/23 15:54 KW Edit Result 04/26/23 15:53 KW (1) [id number] 04/27/23 06:58 PL (1) Right - Multi-Layered Wrap Application => Multi-Layer Comp - => Right ($) 04/26/23 15:53 Wound Care Center Nurse 3 #5- L LAT POST LE -Primary Dressing Applied Promogran -Primary Dressing Covered/Secured with Dry Gauze & Roll Gauze, Secured with Tape -Promogran 1 Right -Multi-Layered Wrap Application Multi-Layer Comp - Right ($ ) Pain Scale: 0-10 Numeric Is Patient Pain Free? Yes WC - Visit Discharge Discharge Condition Stable Ambulatory Status Ambulatory, Walker Transportation Private Auto Medication Reconcilliation completed & No provided to patient/care provider Clinical Summary of Care Provided Yes Lab / Micro Data Micro: Microbiology 04/26/23 15:45 Wound - Leg, Right Gram Stain - Final 04/26/23 15:45 Wound - Leg, Right Wound Culture - Preliminary Gram negative nereida Charges/Coding Visit Charges Office Visits / Consults: [id number] OV L3 Est Procedures Integumentary [id number]: [id number] Otilia subq tissue 20 sq cm/< Assessment/Plan Assessment/Plan (1) Non-pressure chronic ulcer of left lower leg: CODE(S): L97.929 - Non-pressure chronic ulcer of unspecified part of left lower leg with unspecified severity QUALIFIERS: Non-pressure ulcer stage: limited to breakdown of skin Qualified Code(s): L97.921 - Non-pressure chronic ulcer of unspecified part of left lower leg limited to breakdown of skin PLAN: Will apply promogran to the wound bed, cover with dry dressing. Apply 3M wraps for compression. Change this once at [facility] on Sun/ next week then will change again at her next appointment with me next . She has had bilateral lower extremity wounds in nearly the same location recurrently and with episodes very close together. It is unclear how consistently her compression stockings are being worn, it seems that she may be removing throughout the day or refusing to wear. She does have dementia. She may require 3M wraps long-term to best reduce her risk of wound recurrence, she has done very well with these when she is being seen here. Obtained wound cultures today. Will prescribe antibiotics as indicated by C&S.
[2023-05-03 14:59] VITALS: BP 166/69; PULSE 74; RESP 18; TEMP 36.7
--- NOTE | 2023-05-04 08:23 | PCM.WC.PN ---
History of Present Illness Date of Service: 05/03/23 Chief Complaint: RLE wound History of Wound: Patient is an 81-year-old female who resides at [facility]. She is referred by facility for evaluation and management of right lower extremity wound which have been ongoing for a week or so. She is well known to me as I just discharged her from [facility] for similar wounds less than a month ago and had seen her for an episode of wounds in the same location once before then as well. At her last appointment, her bilateral calf wounds had healed completely and she was discharged with measured compression stockings to reduce risk of recurrence. She is not the most reliable historian, but does report having worn the compression stockings. She does have a compression stocking on the left leg. She is not sure why this wound developed, she cannot recall an injury, denies itching the area. She is not diabetic. She does not smoke. She is ambulatory and denies claudication type symptoms. The wound on her R posterolateral calf is superficial with serous drainage. There is erythema extending somewhat proximally from the wound edge, but there is no appreciable warmth, excessive tenderness, foul odor, focal swelling/fluctuance/induration. Denies N/V, F/C. She does have bilateral lower extremity edema. She does still sleep in a chair, but tries to elevate her feet on a footstool. Subjective Subjective Unfortunately, patient had wraps removed at facility on Sunday but they did not have the supplies to re-wrap the 3M dressings so has not had these in place since Sunday. This week she also has recurrent wound to the L calf. The wound to the R calf is now a cluster, increased in size. No N/V, F/C. Objective Data Objective Data Vital Signs: Vital Signs Temp Pulse Resp BP O2 Del Method 98.1 F 74 18 166/69 H Room Air 05/03/23 14:59 05/03/23 14:59 05/03/23 14:59 05/03/23 14:59 05/03/23 14:59 Oxygen Delivery Method Room Air Lab / Micro Data Micro: Microbiology 04/26/23 15:45 Wound - Leg, Right Gram Stain - Final 04/26/23 15:45 Wound - Leg, Right Wound Culture - Final Proteus mirabilis Staphylococcus aureus 04/26/23 15:45 Wound - Leg, Right Anaerobic Culture - Final Anaerobic cocci Charges/Coding Procedures Integumentary 111xxx-113xx: [id number] Otilia subq tissue 20 sq cm/< Physical Exam Const alert, oriented x3 and no apparent distress Orientation / Consciousness: confused Resp normal respiratory effort, normal air movement, no retractions and no use of accessory muscles Effort and Inspection: able to speak in complete sentences; Negative for stridor or audible wheezes Extremity Extremity Narrative: Bilateral lower extremity edema 2+ Skin Wounds: wounds noted Wound Narrative: R posterolateral calf wound: superficial, mild amount of slough, serous drainage. Increased in size from last week as now a cluster. However, erythema at the wound edges is reduced. L posterior calf wound: small, superficial wound with mild amount of slough and serous drainage. No significant erythema, fluctuance/swelling, foul odor. Neuro oriented x3, CN's II-XII intact bilaterally, moves all extremities and no focal motor deficits Psych Appearance: grossly normal Attitude: calm Debridement Note Debridement Note Wound debrided: L posterolateral calf wound Laterality: Left Type of Debridement: Excisional debridement Anesthesia Used: 5% Lidocaine Gel Depth: Down to and including healthy tissue Percentage of wound debrided: 100 Instrument Used: 5mm curette Tissue Removed: slough, devitalized tissue Amount of bleeding with debridement: Mild Bleeding Controlled with: Pressure Patient tolerated procedure: Patient tolerated procedure well Post-Debridement Measurements and Additional Note: Post-Debridement Measurements/Treatment - Nurse 1 - General Ulcer Assessment Start: 04/26/23 15:14 Freq: Status: Active Protocol: NIRU.PRACHI Activity Type Activity Date Activity User E-sign Co-sign Detail Recorded Client Recorded Date Recorded By Document 04/26/23 15:14 Laptop 04/26/23 15:24 04/26/23 15:14 - Today's Visit Information Type of service Follow-up Visit (Physician/[employer]ER ) Arrival Mode Ambulatory, Walker Patient Identification Verified (Name & Yes ) Patient Requires Transmission-Based No Precautions Vital Signs Temperature (97.8 F-99.1 F) 97.1 F L Temperature Source Temporal Pulse Rate (60-100) 64 Pulse Location Monitor Respiratory Rate (12-18) 16 Respiratory rate source Observation Blood Pressure (90/60-120/80) 176/47 H Blood Pressure Mean 90 Source Monitor Position Semi-Fowlers Blood Pressure Location Right Arm History Since Last Visit- (Skip if this is Patient's initial visit) Have you changed medications since your No last visit? Any new allergies or adverse reactions No Had a fall/change in ADL's that may No increase risk of falls Signs or symptoms of abuse and/or No neglect since last visit Have you been in the hospital since your No last visit? Has dressing in place as prescribed Yes Has compression in place as prescribed Yes Has offloadiing in place as prescribed No Experienced any changes in pain level or No management Left Footwear Regular Shoe Right Footwear Regular Shoe Pain Scale: 0-10 Numeric Is Patient Pain Free? Yes WC - Nurse 1 - General Ulcer Measurement Start: 04/26/23 15:14 Freq: Status: Active Protocol: Activity Type Activity Date Activity User E-sign Co-sign Detail Recorded Client Recorded Date Recorded By Document 04/26/23 15:14 Laptop 04/26/23 15:24 04/26/23 15:14 Wound Center Nurse 1 #6 L Buttocks Cluster -Combined with other wound No -Current Size (cm) - Length 0.1 -Current Size (cm) - Width 0.1 -Current Size (cm) - Depth 0.1 -Total Square Cm 0.01 -Photo Taken No -Epithelialization Large 67-100% -Tunneling No -Undermining/Tunneling No -Circular Undermining No -Exudate Amt None Present #5- L LAT POST LE -Combined with other wound No -Current Size (cm) - Length 4.5 -Current Size (cm) - Width 4.2 -Current Size (cm) - Depth 0.1 -Total Square Cm 18.90 -Photo Taken No -Epithelialization Small 1-33% -Tunneling No -Undermining/Tunneling No -Circular Undermining No -Exudate Amt Medium -Exudate Type Serosanguineous -Wound Margin Flat & Intact -Granulation Amt Medium (34-66%) -Granulation Quality Red -Slough/Fibrin Yes -Necrosis Amt Small (1-33%) -Necrotic Tissue Type Adherent Slough -Structure Exposed N/A -Texture (Maryann-wound Skin Appearance) Assessed, Localized Edema -Moisture (Maryann-wound Skin Appearance) Assessed,Dry/ Scaly -Color (Maryann-wound Skin Appearance) Assessed -Temperature (Maryann-wound Skin No Abnormality Appearance) (Pt Warm) -Tenderness on Palpation (Maryann-wound No Skin Appearance) -Ulcer Cleansing Soap and Water -Anesthetic Used 4% Lidocaine Solution Lower Limb Edema Present Yes Right Calf (cm) 41.2 Right Ankle (cm) 22.3 WC - Nurse 2 - General Ulcer CM Notes Start: 04/26/23 15:14 Freq: Status: Active Protocol: Activity Type Activity Date Activity User E-sign Co-sign Detail Recorded Client Recorded Date Recorded By Document 04/26/23 16:33 PL [id number] 04/26/23 16:34 PL 04/26/23 16:33 Wound Center Nurse 2 #5- L LAT POST LE -Time 15:32 -Correct Patient Yes -Correct Side, Site, Position Yes -Correct Procedure Yes -Procedure Performed Yes -Type of Procedure Debridement -Clinical Debridement Subcutaneous -Tissue Removed Subcutaneous -Post Debridement (cm) - Length 4.5 -Post Debridement (cm) - Width 4.2 -Post Debridement (cm) - Depth 0.1 -Total Square (Post) (cm) 18.90 -Area of Debridement (cm) - Length 4.5 -Area of Debridement (cm) - Width 4.2 -Total Square (Area) (cm) 18.90 -Tunneling No -Undermining/Tunneling No -Circular Undermining No -Wound/Ulcer Outcome Not Healed -Ulcer Cleansing Rinsed/ Irrigated with Saline -Foul Odor after Cleansing No -Bioengineered Tissue No -Bleeding Controlled with Pressure -Treatment Response Procedure Tolerated Well -Debridement - Subq, 1st 20sq cm Yes Pain Scale: 0-10 Numeric Is Patient Pain Free? Yes WC - Nurse 3 - General Ulcer D/C NN Start: 04/26/23 15:14 Freq: Status: Active Protocol: Activity Type Activity Date Activity User E-sign Co-sign Detail Recorded Client Recorded Date Recorded By Document 04/26/23 15:53 KW Desktop 04/26/23 15:54 KW Edit Result 04/26/23 15:53 KW (1) [id number] 04/27/23 06:58 PL (1) Right - Multi-Layered Wrap Application => Multi-Layer Comp - => Right ($) 04/26/23 15:53 Wound Care Center Nurse 3 #5- L LAT POST LE -Primary Dressing Applied Promogran -Primary Dressing Covered/Secured with Dry Gauze & Roll Gauze, Secured with Tape -Promogran 1 Right -Multi-Layered Wrap Application Multi-Layer Comp - Right ($ ) Pain Scale: 0-10 Numeric Is Patient Pain Free? Yes WC - Visit Discharge Discharge Condition Stable Ambulatory Status Ambulatory, Walker Transportation Private Auto Medication Reconcilliation completed & No provided to patient/care provider Clinical Summary of Care Provided Yes Assessment/Plan Assessment/Plan (1) Non-pressure chronic ulcer of left lower leg: CODE(S): L97.929 - Non-pressure chronic ulcer of unspecified part of left lower leg with unspecified severity QUALIFIERS: Non-pressure ulcer stage: limited to breakdown of skin Qualified Code(s): L97.921 - Non-pressure chronic ulcer of unspecified part of left lower leg limited to breakdown of skin (2) Non-pressure chronic ulcer of right lower leg: CODE(S): L97.919 - Non-pressure chronic ulcer of unspecified part of right lower leg with unspecified severity PLAN: Plan Will apply promogran to both wound beds, cover with dry dressing. Apply 3M wraps to both legs for compression, will send extra supplies so facility will have what they need to change dressings chcf through the week. Wound cultures returned positive for proteus and staph aureus. I prescribed Bactrim DS BID x 14 days. She started this on Sunday. She has had bilateral lower extremity wounds in nearly the same location recurrently and with episodes very close together. It is unclear how consistently her compression stockings are being worn, it seems that she may be removing throughout the day or refusing to wear. She does have dementia. She may require 3M wraps long-term to best reduce her risk of wound recurrence, she has done very well with these when she is being seen here.
[2023-05-10 09:33] VITALS: BP 148/70; PULSE 72; RESP 22; TEMP 36.2
--- NOTE | 2023-05-11 07:25 | PCM.WC.PN ---
History of Present Illness Date of Service: 05/10/23 Chief Complaint: RLE wound History of Wound: Patient is an 81-year-old female who resides at [facility]. She is referred by facility for evaluation and management of right lower extremity wound which have been ongoing for a week or so. She is well known to me as I just discharged her from [facility] for similar wounds less than a month ago and had seen her for an episode of wounds in the same location once before then as well. At her last appointment, her bilateral calf wounds had healed completely and she was discharged with measured compression stockings to reduce risk of recurrence. She is not the most reliable historian, but does report having worn the compression stockings. She does have a compression stocking on the left leg. She is not sure why this wound developed, she cannot recall an injury, denies itching the area. She is not diabetic. She does not smoke. She is ambulatory and denies claudication type symptoms. The wound on her R posterolateral calf is superficial with serous drainage. There is erythema extending somewhat proximally from the wound edge, but there is no appreciable warmth, excessive tenderness, foul odor, focal swelling/fluctuance/induration. Denies N/V, F/C. She does have bilateral lower extremity edema. She does still sleep in a chair, but tries to elevate her feet on a footstool. Subjective Subjective She states she has been feling fine this week, no N/V or F/C. No new/worsening pain in either leg. As far as she knows, no increased drainage or swelling. SNF changed 3M wraps fpc through the week as intended. Objective Data Objective Data Vital Signs: Vital Signs Temp Pulse Resp BP O2 Del Method 97.2 F L 72 22 H 148/70 H Room Air 05/10/23 09:33 05/10/23 09:33 05/10/23 09:33 05/10/23 09:33 05/03/23 14:59 Oxygen Delivery Method Room Air Lab / Micro Data Micro: Microbiology 04/26/23 15:45 Wound - Leg, Right Gram Stain - Final 04/26/23 15:45 Wound - Leg, Right Wound Culture - Final Proteus mirabilis Staphylococcus aureus 04/26/23 15:45 Wound - Leg, Right Anaerobic Culture - Final Anaerobic cocci Charges/Coding Procedures Integumentary [id number]: [id number] Otilia subq tissue 20 sq cm/< Physical Exam Const alert, oriented x3 and no apparent distress Orientation / Consciousness: confused Resp normal respiratory effort, normal air movement, no retractions and no use of accessory muscles Effort and Inspection: able to speak in complete sentences; Negative for stridor or audible wheezes Extremity Extremity Narrative: Bilateral lower extremity edema 2+ Skin Wounds: wounds noted Wound Narrative: R posterolateral calf wound: superficial, mild amount of slough, serous drainage. Decreased in size. L posterior calf wound: small, superficial wound with mild amount of slough and serous drainage. Decreased in size. Neuro oriented x3, CN's II-XII intact bilaterally, moves all extremities and no focal motor deficits Psych Appearance: grossly normal Attitude: calm Debridement Note Debridement Note Wound debrided: L posterolateral calf wound Laterality: Left Type of Debridement: Excisional debridement Anesthesia Used: 5% Lidocaine Gel Depth: Down to and including healthy tissue Percentage of wound debrided: 100 Instrument Used: 5mm curette Tissue Removed: slough, devitalized tissue Amount of bleeding with debridement: Mild Bleeding Controlled with: Pressure Patient tolerated procedure: Patient tolerated procedure well Post-Debridement Measurements and Additional Note: Post-Debridement Measurements/Treatment - Nurse 1 - General Ulcer Assessment Start: 04/26/23 15:14 Freq: Status: Active Protocol: STACIA Activity Type Activity Date Activity User E-sign Co-sign Detail Recorded Client Recorded Date Recorded By Document 04/26/23 15:14 Laptop 04/26/23 15:24 Document 05/03/23 14:59 [facility] Desktop 05/03/23 15:05 [facility] Document 05/10/23 09:33 DL Desktop 05/10/23 09:40 DL 04/26/23 05/03/23 05/10/23 15:14 14:59 09:33 - Today's Visit Information Type of service Follow-up Visit Follow-up Visit Follow-up Visit (Physician/HOTEL OR MOTEL CLEANING SUPERVISOR (Physician/HOTEL OR MOTEL CLEANING SUPERVISOR (Physician/HOTEL OR MOTEL CLEANING SUPERVISOR ) ) ) Arrival Mode Ambulatory, Ambulatory, Ambulatory, Walker Walker Walker Transfer Assistance None None Patient Identification Verified (Name & Yes Yes Yes ) Patient Requires Transmission-Based No No No Precautions Vital Signs Temperature (97.8 F-99.1 F) 97.1 F L 98.1 F 97.2 F L Temperature Source Temporal Temporal Temporal Pulse Rate (60-100) 64 74 72 Pulse Location Monitor Monitor Monitor Respiratory Rate (12-18) 16 18 22 H Respiratory rate source Observation Observation Ventilator Oxygen Delivery Method Room Air Blood Pressure (90/60-120/80) 176/47 H 166/69 H 148/70 H Blood Pressure Mean (mm Hg) 90 101 96 Source Monitor Monitor Monitor Position Semi-Fowlers Supine Blood Pressure Location Right Arm Right Arm History Since Last Visit- (Skip if this is Patient's initial visit) Have you changed medications since your No No No last visit? Any new allergies or adverse reactions No No No Had a fall/change in ADL's that may No No No increase risk of falls Signs or symptoms of abuse and/or No No No neglect since last visit Have you been in the hospital since your No No No last visit? Has dressing in place as prescribed Yes No Yes Has compression in place as prescribed Yes No Yes Has offloadiing in place as prescribed No N/A N/A Experienced any changes in pain level or No No No management Left Footwear Regular Shoe Diabetic Shoe Right Footwear Regular Shoe Diabetic Shoe Pain Scale: 0-10 Numeric Is Patient Pain Free? Yes Yes Yes WC - Nurse 1 - General Ulcer Measurement Start: 04/26/23 15:14 Freq: Status: Active Protocol: Activity Type Activity Date Activity User E-sign Co-sign Detail Recorded Client Recorded Date Recorded By Document 04/26/23 15:14 Laptop 04/26/23 15:24 Document 05/03/23 14:59 [facility] Desktop 05/03/23 15:05 [facility] Document 05/10/23 09:33 DL Desktop 05/10/23 09:40 DL 04/26/23 05/03/23 05/10/23 15:14 14:59 09:33 Wound Center Nurse 1 #6 L Buttocks Cluster -Combined with other wound No -Current Size (cm) - Length 0.1 -Current Size (cm) - Width 0.1 -Current Size (cm) - Depth 0.1 -Total Square Cm 0.01 -Photo Taken No -Epithelialization Large 67-100% -Tunneling No -Undermining/Tunneling No -Circular Undermining No -Exudate Amt None Present #8- L POST LE -Combined with other wound No -Current Size (cm) - Length 0.1 0.8 -Current Size (cm) - Width 0.1 0.7 -Current Size (cm) - Depth 0.1 0.1 -Total Square Cm 0.01 0.56 -Date of Last Picture (Recall this 05/03/23 field) -Photo Taken Yes -Epithelialization Large 67-100% -Tunneling No -Undermining/Tunneling No -Circular Undermining No -Exudate Amt Medium None Present -Exudate Type Serosanguineous -Wound Margin Distinct, Thickened Outline Attached -Granulation Amt None Present (0 None Present (0 %) %) -Slough/Fibrin Yes -Necrosis Amt Small (1-33%) Large (67-100%) -Necrotic Tissue Type Eschar Eschar -Structure Exposed N/A -Texture (Maryann-wound Skin Appearance) Assessed, Scarring Scarring -Moisture (Maryann-wound Skin Appearance) Assessed,Dry/ No Abnormality Scaly -Color (Maryann-wound Skin Appearance) Assessed Hemosiderin Staining -Temperature (Maryann-wound Skin No Abnormality No Abnormality Appearance) (Pt Warm) (Pt Warm) -Tenderness on Palpation (Maryann-wound Yes No Skin Appearance) -Ulcer Cleansing Soap and Water Soap and Water -Foul Odor after Cleansing No No -Anesthetic Used 5% Lidocaine 5% Lidocaine Gel Gel #5- R POST LE -Combined with other wound No No -Current Size (cm) - Length 4.5 1.6 -Current Size (cm) - Width 4.2 1.3 -Current Size (cm) - Depth 0.1 0.1 -Total Square Cm 18.90 2.08 -Date of Last Picture (Recall this 05/03/23 field) -Photo Taken No Yes -Epithelialization Small 1-33% None Present -Tunneling No No -Undermining/Tunneling No No -Circular Undermining No No -Exudate Amt Medium Large Medium -Exudate Type Serosanguineous Serosanguineous -Wound Margin Flat & Intact Distinct, Distinct, Outline Outline Attached Attached -Granulation Amt Medium (34-66%) Large (67-100%) Large (67-100%) -Granulation Quality Red Red Red -Slough/Fibrin Yes Yes -Necrosis Amt Small (1-33%) Small (1-33%) None Present (0 %) -Necrotic Tissue Type Adherent Slough Adherent Slough -Structure Exposed N/A N/A -Texture (Marynan-wound Skin Appearance) Assessed, Assessed, Scarring Localized Edema Scarring -Moisture (Maryann-wound Skin Appearance) Assessed,Dry/ Assessed, No Abnormality Scaly Weeping,Dry/ Scaly -Color (Maryann-wound Skin Appearance) Assessed Assessed, Hemosiderin Erythema, Staining Hemosiderin Staining -Temperature (Maryann-wound Skin No Abnormality No Abnormality No Abnormality Appearance) (Pt Warm) (Pt Warm) (Pt Warm) -Tenderness on Palpation (Maryann-wound No Yes Skin Appearance) -Ulcer Cleansing Soap and Water Soap and Water Not Cleansed -Foul Odor after Cleansing No No -Anesthetic Used 4% Lidocaine 5% Lidocaine 5% Lidocaine Solution Gel Gel Lower Limb Edema Present Yes Yes Right Calf (cm) 41.2 41 39.8 Right Ankle (cm) 22.3 40.2 21.3 Left Calf (cm) 40.2 35.5 Left Ankle (cm) 22.6 21.9 WC - Nurse 2 - General Ulcer CM Notes Start: 04/26/23 15:14 Freq: Status: Active Protocol: Activity Type Activity Date Activity User E-sign Co-sign Detail Recorded Client Recorded Date Recorded By Document 04/26/23 16:33 PL [id number] 04/26/23 16:34 PL Document 05/03/23 16:18 PL [id number] 05/03/23 16:20 PL Document 05/10/23 12:55 PL [id number] 05/10/23 12:58 PL 04/26/23 05/03/23 05/10/23 16:33 16:18 12:55 Wound Center Nurse 2 #8- L POST LE -Time 15:15 09:44 -Correct Patient Yes Yes -Correct Side, Site, Position Yes Yes -Correct Procedure Yes Yes -Procedure Performed Yes Yes -Type of Procedure Debridement Debridement -Clinical Debridement Subcutaneous Subcutaneous -Tissue Removed Subcutaneous Subcutaneous -Post Debridement (cm) - Length 1.7 2.2 -Post Debridement (cm) - Width 0.6 1.0 -Post Debridement (cm) - Depth 0.1 0.2 -Total Square (Post) (cm) 1.02 2.20 -Area of Debridement (cm) - Length 1.7 2.2 -Area of Debridement (cm) - Width 0.6 1.0 -Total Square (Area) (cm) 1.02 2.20 -Tunneling No No -Undermining/Tunneling No No -Circular Undermining No No -Wound/Ulcer Outcome Not Healed Not Healed -Ulcer Cleansing Rinsed/ Rinsed/ Irrigated with Irrigated with Saline Saline -Foul Odor after Cleansing No No -Bioengineered Tissue No No -Bleeding Controlled with Pressure Pressure -Treatment Response Procedure Procedure Tolerated Well Tolerated Well -Debridement - Subq, 1st 20sq cm No Yes #5- R POST LE -Time 15:32 15:15 09:44 -Correct Patient Yes Yes Yes -Correct Side, Site, Position Yes Yes Yes -Correct Procedure Yes Yes Yes -Procedure Performed Yes Yes Yes -Type of Procedure Debridement Debridement Debridement -Clinical Debridement Subcutaneous Subcutaneous Subcutaneous -Tissue Removed Subcutaneous Subcutaneous Subcutaneous -Post Debridement (cm) - Length 4.5 4.1 0.5 -Post Debridement (cm) - Width 4.2 3.3 0.3 -Post Debridement (cm) - Depth 0.1 0.1 0.1 -Total Square (Post) (cm) 18.90 13.53 0.15 -Area of Debridement (cm) - Length 4.5 4.1 0.5 -Area of Debridement (cm) - Width 4.2 3.3 0.3 -Total Square (Area) (cm) 18.90 13.53 0.15 -Tunneling No No No -Undermining/Tunneling No No No -Circular Undermining No No No -Wound/Ulcer Outcome Not Healed Not Healed Not Healed -Ulcer Cleansing Rinsed/ Rinsed/ Rinsed/ Irrigated with Irrigated with Irrigated with Saline Saline Saline -Foul Odor after Cleansing No No No -Bioengineered Tissue No No No -Bleeding Controlled with Pressure Pressure Pressure -Treatment Response Procedure Procedure Procedure Tolerated Well Tolerated Well Tolerated Well -Debridement - Subq, 1st 20sq cm Yes Yes No Pain Scale: 0-10 Numeric Is Patient Pain Free? Yes Yes Yes WC - Nurse 3 - General Ulcer D/C NN Start: 04/26/23 15:14 Freq: Status: Active Protocol: Activity Type Activity Date Activity User E-sign Co-sign Detail Recorded Client Recorded Date Recorded By Document 04/26/23 15:53 KW Desktop 04/26/23 15:54 KW Edit Result 04/26/23 15:53 KW (1) [id number] 04/27/23 06:58 PL Document 05/03/23 15:38 [facility] Desktop 05/03/23 15:43 BMF Edit Result 05/03/23 15:38 BMF (2) Desktop 05/03/23 15:48 DL Document 05/10/23 09:51 KW Desktop 05/10/23 09:52 KW (1) Right - Multi-Layered Wrap Application => Multi-Layer Comp - => Right ($) (2) Left - Multi-Layered Wrap Application => Multi-Layer Comp - => Left ($) Right - Multi-Layered Wrap Application => Multi-Layer Comp - => Right ($) Notes: => Set of 3M sent with pt to ECF for dressing change mid week. 04/26/23 05/03/23 05/10/23 15:53 15:38 09:51 Wound Care Center Nurse 3 #8- L POST LE -Ulcer Cleansing Rinsed/ Irrigated with Saline -Foul Odor after Cleansing No -Primary Dressing Applied Promogran Promogran -Primary Dressing Covered/Secured with Dry Gauze Dry Gauze & Roll Gauze, Secured with Tape -Promogran 1 1 #5- R POST LE -Ulcer Cleansing Rinsed/ Irrigated with Saline -Foul Odor after Cleansing No -Primary Dressing Applied Promogran -Other Dressing PROMOGRAN -Primary Dressing Covered/Secured with Dry Gauze & Dry Gauze Dry Gauze & Roll Gauze, Roll Gauze, Secured with Secured with Tape Tape -Promogran 1 Left -Multi-Layered Wrap Application Multi-Layer Comp - Left ($) ESTER -Multi-Layered Wrap Application Multi-Layer Multi-Layer Comp - Bilat ($ Comp - Bilat ($ ) ) Right -Multi-Layered Wrap Application Multi-Layer Multi-Layer Comp - Right ($ Comp - Right ($ ) ) Treatment Response Procedure Tolerated Well Pain Scale: 0-10 Numeric Is Patient Pain Free? Yes Yes Yes WC - Visit Discharge Discharge Condition Stable Stable Stable Ambulatory Status Ambulatory, Ambulatory, Walker Walker Walker Transportation Private Auto Private Auto Medication Reconcilliation completed & No No provided to patient/care provider Clinical Summary of Care Provided Yes Yes Notes: Set of 3M sent with pt to ECF for dressing change mid week . Facility Type [facility] Facility Orders Sent Yes Additional Wound Wound debrided: R posterior calf wound Laterality: Right Type of Debridement: Excisional debridement Anesthesia Used: 5% Lidocaine Gel Depth: Down to and including healthy tissue Percentage of wound debrided: 100 Instrument Used: 5mm curette Tissue Removed: slough, devitalized tissue Severity: Limited To Skin Breakdown Amount of bleeding with debridement: Mild Bleeding Controlled with: Pressure Patient tolerated procedure: Patient tolerated procedure well Assessment/Plan Assessment/Plan (1) Non-pressure chronic ulcer of left lower leg: CODE(S): L97.929 - Non-pressure chronic ulcer of unspecified part of left lower leg with unspecified severity QUALIFIERS: Non-pressure ulcer stage: limited to breakdown of skin Qualified Code(s): L97.921 - Non-pressure chronic ulcer of unspecified part of left lower leg limited to breakdown of skin (2) Non-pressure chronic ulcer of right lower leg: CODE(S): L97.919 - Non-pressure chronic ulcer of unspecified part of right lower leg with unspecified severity PLAN: Plan Both wounds are decreased in size this week, her lower extremity edema is also improved. Will continue to apply promogran to both wound beds, cover with dry dressing. Apply 3M wraps to both legs for compression, will send extra supplies so facility will have what they need to change dressings detention through the week. She continues to take Bactrim as prescribed. She has had bilateral lower extremity wounds in nearly the same location recurrently and with episodes very close together. It is unclear how consistently her compression stockings are being worn, it seems that she may be removing throughout the day or refusing to wear. She does have dementia. She may require 3M wraps long-term to best reduce her risk of wound recurrence, she has done very well with these when she is being seen here.
[2023-05-17 13:39] VITALS: BP 183/65; PULSE 72; RESP 16; TEMP 36.7
--- NOTE | 2023-05-18 00:27 | PN.PCM_ITS ---
History of Present Illness Date of Service: 05/17/23 Chief Complaint: RLE wound History of Wound: Patient is an 81-year-old female who resides at [facility]. She is referred by facility for evaluation and management of right lower extremity wound which have been ongoing for a week or so. She is well known to me as I just discharged her from [facility] for similar wounds less than a month ago and had seen her for an episode of wounds in the same location once before then as well. At her last appointment, her bilateral calf wounds had healed completely and she was discharged with measured compression stockings to reduce risk of recurrence. She is not the most reliable historian, but does report having worn the compression stockings. She does have a compression stocking on the left leg. She is not sure why this wound developed, she cannot recall an injury, denies itching the area. She is not diabetic. She does not smoke. She is ambulatory and denies claudication type symptoms. The wound on her R posterolateral calf is superficial with serous drainage. There is erythema extending somewhat proximally from the wound edge, but there is no appreciable warmth, excessive tenderness, foul odor, focal swelling/fluctuance/induration. Denies N/V, F/C. She does have bilateral lower extremity edema. She does still sleep in a chair, but tries to elevate her feet on a footstool. Subjective Subjective LLE ulceration is healed and she remains without pain/discomfort in LLE. She still notes mild discomfort in the RLE. Her lower extremity edema is significantly improved with 3M wraps. No N/V, F/C, new erythema/warmth/drainage from lower extremities. Objective Data Objective Data Vital Signs: Vital Signs Temp Pulse Resp BP O2 Del Method 98.1 F 72 16 183/65 H Room Air 05/17/23 13:39 05/17/23 13:39 05/17/23 13:39 05/17/23 13:39 05/17/23 13:39 Oxygen Delivery Method Room Air Lab / Micro Data Micro: Microbiology 04/26/23 15:45 Wound - Leg, Right Gram Stain - Final 04/26/23 15:45 Wound - Leg, Right Wound Culture - Final Proteus mirabilis Staphylococcus aureus 04/26/23 15:45 Wound - Leg, Right Anaerobic Culture - Final Anaerobic cocci Charges/Coding Procedures Integumentary [id number]: [id number] Otilia subq tissue 20 sq cm/< Physical Exam Const alert, oriented x3 and no apparent distress Orientation / Consciousness: confused Resp normal respiratory effort, normal air movement, no retractions and no use of accessory muscles Effort and Inspection: able to speak in complete sentences; Negative for stridor or audible wheezes Extremity Extremity Narrative: Bilateral lower extremity edema 2+ Skin Wounds: wounds noted Wound Narrative: R posterolateral calf wound: superficial, mild amount of slough, serous drainage. Decreased in size. L posterior calf wound is healed. Neuro oriented x3, CN's II-XII intact bilaterally, moves all extremities and no focal motor deficits Psych Appearance: grossly normal Attitude: calm Debridement Note Debridement Note Post-Debridement Measurements and Additional Note: Post-Debridement Measurements/Treatment - Nurse 1 - General Ulcer Assessment Start: 04/26/23 15:14 Freq: Status: Active Protocol: [email or web address] Activity Type Activity Date Activity User E-sign Co-sign Detail Recorded Client Recorded Date Recorded By Document 04/26/23 15:14 Prognosis [employer] Information [employer] Laptop 04/26/23 15:24 Document 05/03/23 14:59 BMF Desktop 05/03/23 15:05 BMF Document 05/10/23 09:33 DL Desktop 05/10/23 09:40 DL Document 05/17/23 13:39 BMF Desktop 05/17/23 13:55 BMF 04/26/23 05/03/23 05/10/23 15:14 14:59 09:33 - Today's Visit Information Type of service Follow-up Visit Follow-up Visit Follow-up Visit (Physician/MGMT ANALYST (Physician/MGMT ANALYST (Physician/MGMT ANALYST ) ) ) Arrival Mode Ambulatory, Ambulatory, Ambulatory, Walker Walker Walker Transfer Assistance None None Patient Identification Verified (Name & Yes Yes Yes ) Patient Requires Transmission-Based No No No Precautions Vital Signs Temperature (97.8 F-99.1 F) 97.1 F L 98.1 F 97.2 F L Temperature Source Temporal Temporal Temporal Pulse Rate (60-100) 64 74 72 Pulse Location Monitor Monitor Monitor Respiratory Rate (12-18) 16 18 22 H Respiratory rate source Observation Observation Ventilator Oxygen Delivery Method Room Air Blood Pressure (90/60-120/80) 176/47 H 166/69 H 148/70 H Blood Pressure Mean (mm Hg) 90 101 96 Source Monitor Monitor Monitor Position Semi-Fowlers Supine Blood Pressure Location Right Arm Right Arm History Since Last Visit- (Skip if this is Patient's initial visit) Have you changed medications since your No No No last visit? Any new allergies or adverse reactions No No No Had a fall/change in ADL's that may No No No increase risk of falls Signs or symptoms of abuse and/or No No No neglect since last visit Have you been in the hospital since your No No No last visit? Has dressing in place as prescribed Yes No Yes Has compression in place as prescribed Yes No Yes Has offloadiing in place as prescribed No N/A N/A Experienced any changes in pain level or No No No management Left Footwear Regular Shoe Diabetic Shoe Right Footwear Regular Shoe Diabetic Shoe Pain Scale: 0-10 Numeric Is Patient Pain Free? Yes Yes Yes 05/17/23 13:39 WC - Today's Visit Information Type of service Follow-up Visit (Physician/MGMT ANALYST ) Arrival Mode Ambulatory, Walker Transfer Assistance None Patient Identification Verified (Name & Yes ) Patient Requires Transmission-Based No Precautions Vital Signs Temperature (97.8 F-99.1 F) 98.1 F Temperature Source Temporal Pulse Rate (60-100) 72 Pulse Location Monitor Respiratory Rate (12-18) 16 Respiratory rate source Observation Oxygen Delivery Method Room Air Blood Pressure (90/60-120/80) 183/65 H Blood Pressure Mean (mm Hg) 104 Source Monitor Position Supine Blood Pressure Location Right Arm History Since Last Visit- (Skip if this is Patient's initial visit) Have you changed medications since your No last visit? Any new allergies or adverse reactions No Had a fall/change in ADL's that may No increase risk of falls Signs or symptoms of abuse and/or No neglect since last visit Have you been in the hospital since your No last visit? Has dressing in place as prescribed Yes Has compression in place as prescribed Yes Has offloadiing in place as prescribed N/A Experienced any changes in pain level or No management Left Footwear Diabetic Shoe Right Footwear Diabetic Shoe Pain Scale: 0-10 Numeric Is Patient Pain Free? Yes WC - Nurse 1 - General Ulcer Measurement Start: 04/26/23 15:14 Freq: Status: Active Protocol: Activity Type Activity Date Activity User E-sign Co-sign Detail Recorded Client Recorded Date Recorded By Document 04/26/23 15:14 JF Laptop 04/26/23 15:24 Document 05/03/23 14:59 BM Desktop 05/03/23 15:05 [facility] Document 05/10/23 09:33 DL Desktop 05/10/23 09:40 DL Document 05/17/23 13:39 BM Desktop 05/17/23 13:55 F 04/26/23 05/03/23 05/10/23 15:14 14:59 09:33 Wound Center Nurse 1 #8- L POST LE -Combined with other wound No -Current Size (cm) - Length 0.1 0.8 -Current Size (cm) - Width 0.1 0.7 -Current Size (cm) - Depth 0.1 0.1 -Total Square Cm 0.01 0.56 -Date of Last Picture (Recall this 05/03/23 field) -Photo Taken Yes -Epithelialization Large 67-100% -Tunneling No -Undermining/Tunneling No -Circular Undermining No -Exudate Amt Medium None Present -Exudate Type Serosanguineous -Wound Margin Distinct, Thickened Outline Attached -Granulation Amt None Present (0 None Present (0 %) %) -Slough/Fibrin Yes -Necrosis Amt Small (1-33%) Large (67-100%) -Necrotic Tissue Type Eschar Eschar -Structure Exposed N/A -Texture (Maryann-wound Skin Appearance) Assessed, Scarring Scarring -Moisture (Maryann-wound Skin Appearance) Assessed,Dry/ No Abnormality Scaly -Color (Maryann-wound Skin Appearance) Assessed Hemosiderin Staining -Temperature (Maryann-wound Skin No Abnormality No Abnormality Appearance) (Pt Warm) (Pt Warm) -Tenderness on Palpation (Maryann-wound Yes No Skin Appearance) -Ulcer Cleansing Soap and Water Soap and Water -Foul Odor after Cleansing No No -Anesthetic Used 5% Lidocaine 5% Lidocaine Gel Gel #6 L Buttocks Cluster -Combined with other wound No -Current Size (cm) - Length 0.1 -Current Size (cm) - Width 0.1 -Current Size (cm) - Depth 0.1 -Total Square Cm 0.01 -Photo Taken No -Epithelialization Large 67-100% -Tunneling No -Undermining/Tunneling No -Circular Undermining No -Exudate Amt None Present #5- R POST LE -Combined with other wound No No -Current Size (cm) - Length 4.5 1.6 -Current Size (cm) - Width 4.2 1.3 -Current Size (cm) - Depth 0.1 0.1 -Total Square Cm 18.90 2.08 -Date of Last Picture (Recall this 05/03/23 field) -Photo Taken No Yes -Epithelialization Small 1-33% None Present -Tunneling No No -Undermining/Tunneling No No -Circular Undermining No No -Exudate Amt Medium Large Medium -Exudate Type Serosanguineous Serosanguineous -Wound Margin Flat & Intact Distinct, Distinct, Outline Outline Attached Attached -Granulation Amt Medium (34-66%) Large (67-100%) Large (67-100%) -Granulation Quality Red Red Red -Slough/Fibrin Yes Yes -Necrosis Amt Small (1-33%) Small (1-33%) None Present (0 %) -Necrotic Tissue Type Adherent Slough Adherent Slough -Structure Exposed N/A N/A -Texture (Maryann-wound Skin Appearance) Assessed, Assessed, Scarring Localized Edema Scarring -Moisture (Maryann-wound Skin Appearance) Assessed,Dry/ Assessed, No Abnormality Scaly Weeping,Dry/ Scaly -Color (Maryann-wound Skin Appearance) Assessed Assessed, Hemosiderin Erythema, Staining Hemosiderin Staining -Temperature (Maryann-wound Skin No Abnormality No Abnormality No Abnormality Appearance) (Pt Warm) (Pt Warm) (Pt Warm) -Tenderness on Palpation (Maryann-wound No Yes Skin Appearance) -Ulcer Cleansing Soap and Water Soap and Water Not Cleansed -Foul Odor after Cleansing No No -Anesthetic Used 4% Lidocaine 5% Lidocaine 5% Lidocaine Solution Gel Gel Lower Limb Edema Present Yes Yes Right Calf (cm) 41.2 41 39.8 Right Ankle (cm) 22.3 40.2 21.3 Left Calf (cm) 40.2 35.5 Left Ankle (cm) 22.6 21.9 05/17/23 13:39 Wound Center Nurse 1 #8- L POST LE -Combined with other wound No -Current Size (cm) - Length 0.1 -Current Size (cm) - Width 0.1 -Current Size (cm) - Depth 0.1 -Total Square Cm 0.01 -Date of Last Picture (Recall this field) -Photo Taken -Epithelialization Large 67-100% -Tunneling No -Undermining/Tunneling No -Circular Undermining No -Exudate Amt None Present -Exudate Type -Wound Margin Distinct, Outline Attached -Granulation Amt -Slough/Fibrin Yes -Necrosis Amt Small (1-33%) -Necrotic Tissue Type Eschar -Structure Exposed -Texture (Maryann-wound Skin Appearance) Assessed, Scarring -Moisture (Maryann-wound Skin Appearance) Assessed -Color (Maryann-wound Skin Appearance) Assessed -Temperature (Maryann-wound Skin No Abnormality Appearance) (Pt Warm) -Tenderness on Palpation (Maryann-wound No Skin Appearance) -Ulcer Cleansing Soap and Water -Foul Odor after Cleansing No -Anesthetic Used 5% Lidocaine Gel #6 L Buttocks Cluster -Combined with other wound -Current Size (cm) - Length -Current Size (cm) - Width -Current Size (cm) - Depth -Total Square Cm -Photo Taken -Epithelialization -Tunneling -Undermining/Tunneling -Circular Undermining -Exudate Amt #5- R POST LE -Combined with other wound No -Current Size (cm) - Length 0.5 -Current Size (cm) - Width 0.3 -Current Size (cm) - Depth 0.1 -Total Square Cm 0.15 -Date of Last Picture (Recall this field) -Photo Taken No -Epithelialization Medium 34-66% -Tunneling No -Undermining/Tunneling No -Circular Undermining No -Exudate Amt Medium -Exudate Type Serosanguineous -Wound Margin Distinct, Outline Attached -Granulation Amt Large (67-100%) -Granulation Quality Red -Slough/Fibrin Yes -Necrosis Amt Small (1-33%) -Necrotic Tissue Type Adherent Slough -Structure Exposed -Texture (Maryann-wound Skin Appearance) Assessed, Scarring -Moisture (Maryann-wound Skin Appearance) Assessed,Dry/ Scaly -Color (Maryann-wound Skin Appearance) Assessed -Temperature (Maryann-wound Skin No Abnormality Appearance) (Pt Warm) -Tenderness on Palpation (Maryann-wound No Skin Appearance) -Ulcer Cleansing Soap and Water -Foul Odor after Cleansing No -Anesthetic Used 5% Lidocaine Gel Lower Limb Edema Present Yes Right Calf (cm) 36.1 Right Ankle (cm) 21 Left Calf (cm) 35.4 Left Ankle (cm) 20.8 WC - Nurse 2 - General Ulcer CM Notes Start: 04/26/23 15:14 Freq: Status: Active Protocol: Activity Type Activity Date Activity User E-sign Co-sign Detail Recorded Client Recorded Date Recorded By Document 04/26/23 16:33 PL [id number] 04/26/23 16:34 PL Document 05/03/23 16:18 PL [id number] 05/03/23 16:20 PL Document 05/10/23 12:55 PL [id number] 05/10/23 12:58 PL Document 05/17/23 15:59 PL [id number] 05/17/23 16:01 PL 04/26/23 05/03/23 05/10/23 16:33 16:18 12:55 Wound Center Nurse 2 #8- L POST LE -Time 15:15 09:44 -Correct Patient Yes Yes -Correct Side, Site, Position Yes Yes -Correct Procedure Yes Yes -Procedure Performed Yes Yes -Type of Procedure Debridement Debridement -Clinical Debridement Subcutaneous Subcutaneous -Tissue Removed Subcutaneous Subcutaneous -Post Debridement (cm) - Length 1.7 2.2 -Post Debridement (cm) - Width 0.6 1.0 -Post Debridement (cm) - Depth 0.1 0.2 -Total Square (Post) (cm) 1.02 2.20 -Area of Debridement (cm) - Length 1.7 2.2 -Area of Debridement (cm) - Width 0.6 1.0 -Total Square (Area) (cm) 1.02 2.20 -Tunneling No No -Undermining/Tunneling No No -Circular Undermining No No -Wound/Ulcer Outcome Not Healed Not Healed -Ulcer Cleansing Rinsed/ Rinsed/ Irrigated with Irrigated with Saline Saline -Foul Odor after Cleansing No No -Bioengineered Tissue No No -Bleeding Controlled with Pressure Pressure -Treatment Response Procedure Procedure Tolerated Well Tolerated Well -Debridement - Subq, 1st 20sq cm No Yes #5- R POST LE -Time 15:32 15:15 09:44 -Correct Patient Yes Yes Yes -Correct Side, Site, Position Yes Yes Yes -Correct Procedure Yes Yes Yes -Procedure Performed Yes Yes Yes -Type of Procedure Debridement Debridement Debridement -Clinical Debridement Subcutaneous Subcutaneous Subcutaneous -Tissue Removed Subcutaneous Subcutaneous Subcutaneous -Post Debridement (cm) - Length 4.5 4.1 0.5 -Post Debridement (cm) - Width 4.2 3.3 0.3 -Post Debridement (cm) - Depth 0.1 0.1 0.1 -Total Square (Post) (cm) 18.90 13.53 0.15 -Area of Debridement (cm) - Length 4.5 4.1 0.5 -Area of Debridement (cm) - Width 4.2 3.3 0.3 -Total Square (Area) (cm) 18.90 13.53 0.15 -Tunneling No No No -Undermining/Tunneling No No No -Circular Undermining No No No -Wound/Ulcer Outcome Not Healed Not Healed Not Healed -Ulcer Cleansing Rinsed/ Rinsed/ Rinsed/ Irrigated with Irrigated with Irrigated with Saline Saline Saline -Foul Odor after Cleansing No No No -Bioengineered Tissue No No No -Bleeding Controlled with Pressure Pressure Pressure -Treatment Response Procedure Procedure Procedure Tolerated Well Tolerated Well Tolerated Well -Debridement - Subq, 1st 20sq cm Yes Yes No Pain Scale: 0-10 Numeric Is Patient Pain Free? Yes Yes Yes 05/17/23 15:59 Wound Center Nurse 2 #8- L POST LE -Time -Correct Patient -Correct Side, Site, Position -Correct Procedure -Procedure Performed No -Type of Procedure -Clinical Debridement -Tissue Removed -Post Debridement (cm) - Length -Post Debridement (cm) - Width -Post Debridement (cm) - Depth -Total Square (Post) (cm) -Area of Debridement (cm) - Length -Area of Debridement (cm) - Width -Total Square (Area) (cm) -Tunneling -Undermining/Tunneling -Circular Undermining -Wound/Ulcer Outcome Healed- Epithelialized -Ulcer Cleansing -Foul Odor after Cleansing -Bioengineered Tissue -Bleeding Controlled with -Treatment Response -Debridement - Subq, 1st 20sq cm #5- R POST LE -Time 14:10 -Correct Patient Yes -Correct Side, Site, Position Yes -Correct Procedure Yes -Procedure Performed Yes -Type of Procedure Debridement -Clinical Debridement Subcutaneous -Tissue Removed Subcutaneous -Post Debridement (cm) - Length 0.7 -Post Debridement (cm) - Width 0.3 -Post Debridement (cm) - Depth 0.1 -Total Square (Post) (cm) 0.21 -Area of Debridement (cm) - Length 0.7 -Area of Debridement (cm) - Width 0.3 -Total Square (Area) (cm) 0.21 -Tunneling No -Undermining/Tunneling No -Circular Undermining No -Wound/Ulcer Outcome Not Healed -Ulcer Cleansing Rinsed/ Irrigated with Saline -Foul Odor after Cleansing No -Bioengineered Tissue No -Bleeding Controlled with Pressure -Treatment Response Procedure Tolerated Well -Debridement - Subq, 1st 20sq cm Yes Pain Scale: 0-10 Numeric Is Patient Pain Free? Yes WC - Nurse 3 - General Ulcer D/C NN Start: 04/26/23 15:14 Freq: Status: Active Protocol: Activity Type Activity Date Activity User E-sign Co-sign Detail Recorded Client Recorded Date Recorded By Document 04/26/23 15:53 KW Desktop 04/26/23 15:54 KW Edit Result 04/26/23 15:53 KW (1) [id number] 04/27/23 06:58 PL Document 05/03/23 15:38 BMF Desktop 05/03/23 15:43 BMF Edit Result 05/03/23 15:38 BMF (2) Desktop 05/03/23 15:48 DL Document 05/10/23 09:51 KW Desktop 05/10/23 09:52 KW Document 05/17/23 14:26 GM Desktop 05/17/23 14:28 GM (1) Right - Multi-Layered Wrap Application => Multi-Layer Comp - => Right ($) (2) Left - Multi-Layered Wrap Application => Multi-Layer Comp - => Left ($) Right - Multi-Layered Wrap Application => Multi-Layer Comp - => Right ($) Notes: => Set of 3M sent with pt to [facility] for dressing change mid week. 04/26/23 05/03/23 05/10/23 15:53 15:38 09:51 Wound Care Center Nurse 3 #8- L POST LE -Ulcer Cleansing Rinsed/ Irrigated with Saline -Foul Odor after Cleansing No -Negative Pressure Wound Therapy -Primary Dressing Applied Promogran Promogran -Primary Dressing Covered/Secured with Dry Gauze Dry Gauze & Roll Gauze, Secured with Tape -Promogran 1 1 #5- R POST LE -Ulcer Cleansing Rinsed/ Irrigated with Saline -Foul Odor after Cleansing No -Primary Dressing Applied Promogran -Other Dressing PROMOGRAN -Primary Dressing Covered/Secured with Dry Gauze & Dry Gauze Dry Gauze & Roll Gauze, Roll Gauze, Secured with Secured with Tape Tape -Other Covering -Promogran 1 Left -Multi-Layered Wrap Application Multi-Layer Comp - Left ($) ESTER -Lotion applied to leg before compression wrap -Multi-Layered Wrap Application Multi-Layer Multi-Layer Comp - Bilat ($ Comp - Bilat ($ ) ) Right -Multi-Layered Wrap Application Multi-Layer Multi-Layer Comp - Right ($ Comp - Right ($ ) ) Treatment Response Procedure Tolerated Well Pain Scale: 0-10 Numeric Is Patient Pain Free? Yes Yes Yes Teaching: Wound Center Compression Wraps & Stockings -Person Taught -Teaching Method -Response to teaching WC - Visit Discharge Discharge Condition Stable Stable Stable Ambulatory Status Ambulatory, Ambulatory, Walker Walker Walker Transportation Private Auto Private Auto Medication Reconcilliation completed & No No provided to patient/care provider Clinical Summary of Care Provided Yes Yes Notes: Set of 3M sent with pt to [facility] for dressing change mid week . Facility Type Skilled Nursing Care Facility Orders Sent Yes 05/17/23 14:26 Wound Care Center Nurse 3 #8- L POST LE -Ulcer Cleansing Not Cleansed -Foul Odor after Cleansing No -Negative Pressure Wound Therapy N/A -Primary Dressing Applied Promogran -Primary Dressing Covered/Secured with Secured with Tape -Promogran 1 #5- R POST LE -Ulcer Cleansing Not Cleansed -Foul Odor after Cleansing No -Primary Dressing Applied -Other Dressing -Primary Dressing Covered/Secured with Other -Other Covering used opened promogran from the Left leg -Promogran Left -Multi-Layered Wrap Application ESTER -Lotion applied to leg before Yes compression wrap -Multi-Layered Wrap Application Multi-Layer Comp - Bilat ($ ) Right -Multi-Layered Wrap Application Treatment Response Pain Scale: 0-10 Numeric Is Patient Pain Free? Yes Teaching: Wound Center Compression Wraps & Stockings -Person Taught Patient -Teaching Method Discussion -Response to teaching Verbalize understanding WC - Visit Discharge Discharge Condition Stable Ambulatory Status Walker Transportation Private Auto Medication Reconcilliation completed & provided to patient/care provider Clinical Summary of Care Provided Notes: Facility Type Orders Sent Additional Wound Wound debrided: R posterior calf wound Laterality: Right Type of Debridement: Excisional debridement Anesthesia Used: 5% Lidocaine Gel Depth: Down to and including healthy tissue Percentage of wound debrided: 100 Instrument Used: 5mm curette Tissue Removed: slough, devitalized tissue Severity: Limited To Skin Breakdown Amount of bleeding with debridement: Mild Bleeding Controlled with: Pressure Patient tolerated procedure: Patient tolerated procedure well Assessment/Plan Assessment/Plan (1) Non-pressure chronic ulcer of left lower leg: CODE(S): L97.929 - Non-pressure chronic ulcer of unspecified part of left lower leg with unspecified severity QUALIFIERS: Non-pressure ulcer stage: limited to breakdown of skin Qualified Code(s): L97.921 - Non-pressure chronic ulcer of unspecified part of left lower leg limited to breakdown of skin (2) Non-pressure chronic ulcer of right lower leg: CODE(S): L97.919 - Non-pressure chronic ulcer of unspecified part of right lower leg with unspecified severity PLAN: Plan LLE wound is healed. RLE wound is significantly decreased in size. Continue with pomogran to the RLE wound, cover with dry dressing. Continue 3M wraps for compression, facility will change in 1 week. Return to the wound healing center in 2 weeks or sooner as needed.
== END 2023-05-20 23:59 | disposition home or self-care (01) ==
LOC: WC 13:45
PROVIDERS: PCP Family Medicine; Referring Provider Family Medicine; Visit Provider Physician Assistant
DX: L97.211 Non-pressure chronic ulcer of right calf limited to breakdown of skin (principal); L97.221 Non-pressure chronic ulcer of left calf limited to breakdown of skin; F03.90 Unspecified dementia, unspecified severity, without behavioral disturbance, psychotic disturbance, mood disturbance, and anxiety; R60.0 Localized edema; I10 Essential (primary) hypertension; E66.9 Obesity, unspecified; Z79.899 Other long term (current) drug therapy
CPT/HCPCS: 11042; 29581; 87070; 87075; 87077; 87186; 87205; 99213; G0463

== ENCOUNTER → 2023-05-28 | Outpatient (REF) | payer MEDICARE, SELFPAY ==
--- OUTSIDE RECORDS SUMMARY | 2023-05-28 04:12 | XMS RPT_ITS | CCD ---
Author Name Unknown Address [address] [place] [address] Organization [facility] Care Team Providers Care Fitness Professional Name Role Phone Randy Martinez MD Primary Care Provider [phone] [place], [place] [facility] Unavailable LONA ORI FUENTES Referring Unavailable RANDY MARTINEZ Primary Care Unavailable LONA ORI FUENTES Referring Unavailable RANDY MARTINEZ Primary Care Unavailable NAREN PÉREZ JR Admitting Unavaila NAREN Herrera JR Attending Unavaila ble CELIA TERESA Consulting Unavailable RANDY MARTINEZ Primary Care Unavailable Randy Martinez MD Primary Care Provider [phone] [place], [place] [facility] Unavailable OLNA ORI FUENTES Attending Unavailable RANDY MARTINEZ Primary Care Unavailable LONA ORI FUENTES Referring Unavailable RANDY MARTINEZ Primary Care Unavailable LONA ORI FUENTES Referring Unavailable LONA ORI FUENTES Attending Unavailable Allergies Allergy Classification Reported Allergen(s) Allergy Type Date of Onset Reaction(s) Facility (10 sources) Timolol; Translations: [TIMOLOL] Drug Allergy 03-18-2012 Other: See Comments [facility] Medications Current Medications Medication Drug Class(es) Dates Sig (Normalized) Sig (Original) mupirocin 0.02 mg/mg topical ointment (1 source) RNA Synthetase Inhibitor Antibacterial Start: 06-11-2022 End: 06-19-2022 mupirocin (BACTROBAN) 2 % ointment Apply to affected area three times daily for 8 days. 0 06/11/2022 06/19/2022 Active Completed/Discontinued Medications Medication Drug Class(es) Dates Sig (Normalized) Sig (Original) acetaminophen 325 mg oral tablet (8 sources) Start: 11-01-2019 take 2 tablets by mouth every six hours as needed acetaminophen (TYLENOL) 325 mg tablet Take 2 tablets by mouth every 6 hours as needed. 60 tablet 1 11/01/2019 Active Problems Active Problems Problem Classification Problem Date Documented Date Episodic/Chronic Delirium, dementia, and amnestic and other cognitive disorders (8 sources) Dementia; Translations: [Moderate dementia without behavioral disturbance, psychotic disturbance, mood disturbance, or anxiety, unspecified dementia type] Onset: 06-09-2022 Chronic Diseases of white blood cells (3 sources) Leukocytosis; Translations: [Elevated white blood cell count, unspecified] Onset: 06-03-2022 Chronic Essential hypertension (13 sources) Essential hypertension; Translations: [Essential (primary) hypertension] Onset: 04-03-2019 11-01-2019 Chronic Genitourinary symptoms and ill-defined conditions (1 source) Hematuria, unspecified; Translations: [Urinary tract infection with hematuria, site unspecified] Onset: 06-03-2022 Episodic Glaucoma (8 sources) Bilateral primary open angle glaucoma; Translations: [Primary open-angle glaucoma, bilateral, stage unspecified] Onset: 11-13-2003 12-16-2018 Chronic Leukemias (16 sources) Chronic lymphoid leukemia, disease; Translations: [Chronic lymphocytic leukemia of B-cell type not having achieved remission] Onset: 01-04-2018 Chronic Osteoarthritis (16 sources) Bilateral shoulder osteoarthritis; Translations: [Primary osteoarthritis, right shoulder] Onset: 11-26-2014 11-01-2019 Chronic Other diseases of kidney and ureters (8 sources) Renal mass; Translations: [Other specified disorders of kidney and ureter] Onset: 10-18-2019 11-01-2019 Chronic Other diseases of veins and lymphatics (1 source) Stasis dermatitis; Translations: [Venous insufficiency (chronic) (peripheral)] Episodic Other hereditary and degenerative nervous system conditions (8 sources) Mild cognitive impairment, so stated; Translations: [Mild cognitive impairment, so stated] Onset: 01-08-2019 11-10-2019 Chronic Other nutritional; endocrine; and metabolic disorders (8 sources) Obese class I; Translations: [Obesity, unspecified] Onset: 06-23-2019 11-01-2019 Chronic Residual codes; unclassified (1 source) Localized edema; Translations: [Localized edema] Episodic Skin and subcutaneous tissue infections (1 source) Cellulitis of right lower limb; Translations: [Cellulitis of right lower extremity] Onset: 06-03-2022 Episodic Urinary tract infections (1 source) Urinary tract infection, site not specified; Translations: [Urinary tract infection with hematuria, site unspecified] Onset: 06-03-2022 Episodic Past or Other Problems Problem Classification Problem Date Documented Da te Episodic/Chronic E Codes: Fall (8 sources) Fall; Translations: [Unspecified fall, initial encounter] Onset: 01-04-2018 01-04-2018 Episodic Malaise and fatigue (11 sources) Asthenia; Translations: [Weakness] Onset: 11-01-2019 11-10-2019 Episodic Other inflammatory condition of skin (5 sources) Red color; Translations: [Erythematous condition, unspecified] Onset: 06-11-2022 06-11-2022 Episodic Other non-traumatic joint disorders (5 sources) Chronic pain of right upper limb; Translations: [Pain in right shoulder] Onset: 06-04-2022 06-04-2022 Episodic Results Test Name Value Interpretation Reference Range Facil ity Vital Signs Date Time Vital Sign Value Performing Clinician Faci lity 01-25-2023 11:09-0400 Diastolic blood pressure 84 mm[Hg] Ori Nichole MD Work Phone: [facility] 01-25-2023 11:09-0400 Heart rate 56 /min Ori Nichole MD Work Phone: [facility] 01-25-2023 11:09-0400 Respiratory rate 18 /min Ori Nichole MD Work Phone: [facility] 01-25-2023 11:09-0400 SaO2% (BldA) [Mass fraction] 96 % Ori Nichole MD Work Phone: [facility] 01-25-2023 11:09-0400 Systolic blood pressure 135 mm[Hg] Ori Nichole MD Work Phone: [facility] 07-24-2022 10:23-0500 Body weight 78.47 kg Ori Nichole MD Work Phone: [facility] 07-24-2022 10:23-0500 Diastolic blood pressure 70 mm[Hg] Ori Nichole MD Work Phone: [facility] 07-24-2022 10:23-0500 Heart rate 68 /min Ori Nichole MD Work Phone: [facility] 07-24-2022 10:23-0500 SaO2% (BldA) [Mass fraction] 97 % Ori Nichole MD Work Phone: [facility] 07-24-2022 10:23-0500 Systolic blood pressure 128 mm[Hg] Ori Nichole MD Work Phone: [facility] 06-26-2022 13:52-0500 Body temperature 97.5 [degF] Mony Senait BOSS DYER.OPTICAL INSTRUMENT INSPECTOR Work Phone: [facility] 06-26-2022 13:52-0500 Body weight 78.47 kg Mony Senait BOSS DYER.OPTICAL INSTRUMENT INSPECTOR Work Phone: [facility] 06-26-2022 13:52-0500 Diastolic blood pressure 54 mm[Hg] Mony Senait BOSS DYER.OPTICAL INSTRUMENT INSPECTOR Work Phone: [facility] 06-26-2022 13:52-0500 Heart rate 67 /min Mony Senait BOSS DYER.OPTICAL INSTRUMENT INSPECTOR Work Phone: [facility] 06-26-2022 13:52-0500 Respiratory rate 18 /min Mony Senait BOSS DYER.OPTICAL INSTRUMENT INSPECTOR Work Phone: [facility] 06-26-2022 13:52-0500 SaO2% (BldA) [Mass fraction] 96 % Mony Senait BOSS DYER.OPTICAL INSTRUMENT INSPECTOR Work Phone: [facility] 06-26-2022 13:52-0500 Systolic blood pressure 139 mm[Hg] Mony Senait BOSS DYER.OPTICAL INSTRUMENT INSPECTOR Work Phone: [facility] 06-20-2022 13:05-0500 Body temperature 98.01 [degF] Mony Senait BOSS DYER.OPTICAL INSTRUMENT INSPECTOR Work Phone: [facility] 06-20-2022 13:05-0500 Body weight 76.66 kg Mony Senait BOSS DYER.OPTICAL INSTRUMENT INSPECTOR Work Phone: [facility] 06-20-2022 13:05-0500 Diastolic blood pressure 53 mm[Hg] Mony Senait BOSS DYER.OPTICAL INSTRUMENT INSPECTOR Work Phone: [facility] 06-20-2022 13:05-0500 Heart rate 60 /min Mony Senait BOSS DYER.OPTICAL INSTRUMENT INSPECTOR Work Phone: [facility] 06-20-2022 13:05-0500 Respiratory rate 18 /min Mony Senait BOSS DYER.OPTICAL INSTRUMENT INSPECTOR Work Phone: [facility] 06-20-2022 13:05-0500 SaO2% (BldA) [Mass fraction] 96 % Mony Senait BOSS DYER.OPTICAL INSTRUMENT INSPECTOR Work Phone: [facility] 06-20-2022 13:05-0500 Systolic blood pressure 149 mm[Hg] Mony Esnait BOSS DYER.OPTICAL INSTRUMENT INSPECTOR Work Phone: [facility] 06-13-2022 17:28-0500 Body temperature 97.3 [degF] Mony Senait BOSS DYER.OPTICAL INSTRUMENT INSPECTOR Work Phone: [facility] 06-13-2022 17:28-0500 Diastolic blood pressure 52 mm[Hg] Mony Senait BOSS DYER.OPTICAL INSTRUMENT INSPECTOR Work Phone: [facility] 06-13-2022 17:28-0500 Heart rate 65 /min Mony Senait BOSS DYER.OPTICAL INSTRUMENT INSPECTOR Work Phone: [facility] 06-13-2022 17:28-0500 Respiratory rate 18 /min Mony Senait BOSS DYER.OPTICAL INSTRUMENT INSPECTOR Work Phone: [facility] 06-13-2022 17:28-0500 SaO2% (BldA) [Mass fraction] 94 % Mony Senait BOSS DYER.OPTICAL INSTRUMENT INSPECTOR Work Phone: [facility] 06-13-2022 17:28-0500 Systolic blood pressure 149 mm[Hg] Mony Senait BOSS DYER.OPTICAL INSTRUMENT INSPECTOR Work Phone: [facility] 01-16-2022 11:08-0400 Body temperature 97.9 [degF] Ori Nichole MD Work Phone: [facility] 01-16-2022 11:08-0400 Body weight 74.62 kg Ori Nichole MD Work Phone: [facility] 01-16-2022 11:08-0400 Diastolic blood pressure 83 mm[Hg] Ori Nichole MD Work Phone: [facility] 01-16-2022 11:08-0400 Heart rate 51 /min Ori Nichole MD Work Phone: [facility] 01-16-2022 11:08-0400 SaO2% (BldA) [Mass fraction] 50 % Ori Nichole MD Work Phone: [facility] 01-16-2022 11:08-0400 Systolic blood pressure 147 mm[Hg] Ori Nichole MD Work Phone: [facility] 12-05-2021 10:54-0400 Diastolic blood pressure 60 mm[Hg] Randy Martinez MD Work Phone: [facility] 12-05-2021 10:54-0400 Systolic blood pressure 130 mm[Hg] Randy Martinez MD Work Phone: [facility] 12-05-2021 10:47-0400 Body height 152.4 cm Randy Martinez MD Work Phone: [facility] 12-05-2021 10:47-0400 Body temperature 97.81 [degF] Randy Martniez MD Work Phone: [facility] 12-05-2021 10:47-0400 Body weight 77.56 kg Randy Martinez MD Work Phone: [facility] 12-05-2021 10:47-0400 Heart rate 55 /min Randy Martinez MD Work Phone: [facility] 12-05-2021 10:47-0400 Respiratory rate 16 /min Randy Martinez MD Work Phone: [facility] 12-05-2021 10:47-0400 SaO2% (BldA) [Mass fraction] 97 % Randy Martinez MD Work Phone: [facility] Encounters Encounter Date Encounter Type Care Provider Facility Start: 01-25-2023 End: 01-25-2023 ambulatory ORI NICHOLE Facility:[facility] Start: 01-25-2023 End: 01-25-2023 ambulatory Ori Nichole MD Work Phone: Hematology/Oncology Procedures Date Procedure Procedure Detail Performing Clinician Start: 01-25-2023 Blood count complete auto&auto difrntl wbc Ori Nichole MD Work Phone: Start: 07-18-2021 Adult depression screening assessment Ori Nichole MD Work Phone: Plan of Treatment Date Care Activity Detail Author Start: 12-26-2028 Urine microalbumin profile DTAP,TDAP,TD (2 - Td or Tdap) [facility] Start: 01-25-2026 DIABETES SCREEN DIABETES SCREEN [facility] Start: 07-24-2025 DIABETES SCREEN DIABETES SCREEN [facility] Start: 06-09-2025 DIABETES SCREEN DIABETES SCREEN [facility] Start: 01-16-2025 DIABETES SCREEN DIABETES SCREEN [facility] Start: 07-18-2024 DIABETES SCREEN DIABETES SCREEN [facility] Start: 07-25-2023 BP CONTROLLED (<130/80) BP CONTROLLED (<130/80) [facility] Start: 01-19-2023 Influenza vaccination INFLUENZA (#1) [facility] Start: 12-05-2022 ANNUAL PCP TEAM CHRONIC DISEASE VISIT ANNUAL PCP TEAM CHRONIC DISEASE VISIT [facility] Start: 07-18-2022 Adult depression screening assessment DEPRESSION SCREENING [facility] Start: 07-18-2022 End: 09-17-2022 CBC W Auto Differential panel - Blood CBC + DIFF Lab Routine CLL (chronic lymphocytic leukemia) (HCC) Expected: 07/18/2022, Expires: 09/17/2022 [facility] Work Phone: Immunizations Immunization Date Immunization Notes Care Provider Fa ciliquintin 05-30-2021 COVID-19 vaccine, ag e 12+ yr (PFIZER-[employer] - PURPLE TOP) Ori Nichole MD Work Phone: [facility] 05-30-2021 influenza, high-dose , quadrivalent vaccine (FLUZONE HIGH DOSE QUADRIVALENT) Ori Nichole MD Work Phone: [facility] 08-12-2020 COVID-19 vaccine, fu ll dose (MODERNA) Ori Nichole MD Work Phone: [facility] 07-15-2020 COVID-19 vaccine, fu ll dose (MODERNA) Ori Nichole MD Work Phone: [facility] 04-03-2019 pneumococcal conjuga te vaccine, 13 valent Ori Nichole MD Work Phone: [facility] 12-26-2018 tetanus toxoid, redu marleni diphtheria toxoid, and acellular pertussis vaccine, adsorbed Ori Nichole MD Work Phone: [facility] 04-24-2018 influenza, high dose seasonal, preservative-free Ori Nichole MD Work Phone: [facility] 01-02-2018 pneumococcal polysaccharide vaccine, 23 valent Ori Nichole MD Work Phone: [facility] NEGATED: Highlighted row has not occurred!10-30-2019 tetanus toxoid, reduced diphtheria toxoid, and acellular pertussis vaccine, adsorbed Ori Nichole MD Work Phone: [facility] Payers Date Payer Category Payer Medicare [id number] 2021 Medicare [id number] 2021 Private Health Insurance [id number] 2021 Medicare A[employer] MEDICARE A ETNA MEDICARE O [id number] 2021-Present [phone] [address] [place] [address] O [id number] 2021 Medicare UHC AARP MEDICAR E [facility] AARP MEDICARE PPO [id number] 2021-Present [phone] [address] [address] [place] [address] [facility] [id number] Social History Date Type Detail Facility Start: 01-18-2018 Tobacco smoking stat us NHIS Never smoked tobacco [facility] Work Phone: History of tobacco use Cigarette Smoker [facility] Work Phone: Start: 01-18-2018 Tobacco use and exposure Smoke less tobacco non-user [facility] Work Phone: Start: 05-30-2021 End: 06-03-2022 Alcohol intake Current non-drinker of alcohol (finding) [facility] Start: 02-21-2019 History SDOH Social Connections Phone 5 [facility] Start: 02-21-2019 History SDOH Social Connections Living 7 [facility] Start: 02-21-2019 End: 11-03-2019 History SDOH Stress 2 [facility] Start: 11-03-2019 History SDOH Financial 4 [facility] Start: 11-03-2019 History SDOH Food Worry 1 [facility] Start: 1940 Sex Assigned At Not on file [facility] Start: 06-18-2021 End: 01-16-2022 Exposure to SARS-CoV-2 (event) Not sure [facility] Start: 02-21-2019 End: 01-25-2023 History of Social function [facility] Start: 02-21-2019 End: 01-25-2023 Social connection and isolation panel [facility] Attends Hinduism Services Not on file [facility] Are you now , , , , never or living with a partner? Never [facility] How hard is it for y ou to pay for the very basics like food, housing, medical care, and heating Not very hard [facility] Work Phone: Do you feel stress - tense, restless, nervous, or anxious, or unable to sleep at night because your mind is troubled all the time - these days [OSQ] Only a little [facility] (I/We) worried wheth er (my/our) food would run out before (I/we) got money to buy more. Never true [facility] Work Phone: Goals Date Patient Goal Desired Activity /State Personal health goal Clinical Notes 11-06-2019 to 01-26-2023 Ori Nichole MD - 01/26/2023 2:55 PM EDTMir Fuentes Nichole MD - 07/24/2022 10:46 AM Sarah Spap APRN.OPTICAL INSTRUMENT INSPECTOR - 06/26/2022 1:52 PM Sarah Sapp APRN.OPTICAL INSTRUMENT INSPECTOR - 06/20/2022 1:06 PM EST Note Date & Type Note Facility 01-26-2023 Note HNO ID: [id number] Author: Ori Nichole MD Service: ? Author Type: Physician Type: Progress Notes Filed: 01/26/2023 2:56 PM Note Text: The patient is a 82-year-old female with a diagnosis of CLL. Has been observed. White count in the ranges of around 20,000. Has not required any therapy. She denies any B symptoms. Energy level fair. No loss of appetite. No new lumps or bumps that she can feel. Review Of Systems: General: Denies any fatigue. No fever, chills, night sweats, weight loss, headaches or loss of appetite. Stamina intact. HEENT/Neck: No hearing/vision changes; no pain, masses, or swelling. No evidence of sores in the mouth. Respiratory: No cough, productive sputum, hemoptysis, chest pain, shortness of breath or wheezing. Cardiovascular: No palpatations, chest pain,shotness or breath, exertional dyspnea or leg swelling. Gastrointestinal: No nausea, vomiting, dysphagia, abdominal pain,melana or hematochezia. No diahrea orconstipation. No change in the bowel habbits. Genitourinary: No dysuria, nocturia, frequency, urgency, hematuria or incontinence. Musculoskeletal: No joint or pain bone pain: No limitation of motion. No problems with the gait. Neurological: No sensory or motor abnormalities; no headaches or dizziness. Dermatologic: No rash, skin lesions or itching. Psychiatric: No sleep disturbances, mood disorders, depression, etc. Hematologic: No bleeding, bruising or echymisis. Lymphatic System: No new lymph gland enlargement or and new lumps of bumps in the body. Endocrine: No heat or cold intolerance, diabetes or other abnormalities The rest of systems reviewed and essentially unremarkable. Physical Examination: BP 135/84 Pulse (!) 56 Resp 18 SpO2 96% The patient was awake alert oriented. Didn't appear to be in acute distress. HEENT: No pallor, icterus, cyanosis, oral cavity shows no evidence of mucositis, lesions, or ulcers. Trachea midline. No JVD, carotid bruit, thyromegaly, cervical lymphadenopathy or supra-infraclavicular lymphadenopathy. CVS: S1-S2 heard no S3 no murmurs or pericardial rub. No peripheral edema. Lungs: Chest wall nontender. No dullness to percussion. Clear to auscultation bilaterally. No rhonchi or rales noted. No pleural rub or at it sounds noted. Abdomen: Normal inspection, nondistended no dilated veins. Soft nontender no organomegaly. No palpable masses noted. Hem/ Lymph: No peripheral lymphadenopathy or any palpable masses. Neuro Exam: High mental functions were normal. Cranial nerves II through XII are normal. No gross abnormality noted on sensory or motor system exam. Musculoskeletal: No joint deformities noted. No evidence of synovitis, swelling or tenderness in the joints or bursitis. Skin: No evidence to suggest any bruising, ecchymosis, petechiae and symptoms of hand-foot syndrome. Labs: DATA: Diagnostic tests reviewed for today's visit: Most recent labs and imaging results. CBC: WBC (k/uL) Date Value 01/25/2023 23.87 05/30/2021 20.22 RBC (m/uL) Date Value 01/25/2023 4.30 05/30/2021 4.50 Hemoglobin (g/dL) Date Value 01/25/2023 13.5 05/30/2021 14.5 Hematocrit (%) Date Value 01/25/2023 40.3 05/30/2021 45.5 Platelet Count (k/uL) Date Value 01/25/2023 213 05/30/2021 175 MCV (fL) Date Value 01/25/2023 93.7 05/30/2021 101.1 MCH Date Value 01/25/2023 31.4 pg 05/30/2021 32.2 pG MPV (fL) Date Value 01/25/2023 12.1 05/30/2021 11.9 CMP: Sodium (mmol/L) Date Value 01/25/2023 140 05/30/2021 143 Chloride (mmol/L) Date Value 01/25/2023 98 05/30/2021 105 CO2 (mmol/L) Date Value 01/25/2023 28 05/30/2021 29 BUN (mg/dL) Date Value 01/25/2023 28 05/30/2021 23 Creatinine (mg/dL) Date Value 01/25/2023 0.90 05/30/2021 0.65 Glucose (mg/dL) Date Value 01/25/2023 333 05/30/2021 144 Protein, Total (g/dL) Date Value 01/25/2023 6.5 05/24/2020 6.8 Calcium (mg/dL) Date Value 05/30/2021 9.2 Calcium, Total (mg/dL) Date Value 01/25/2023 9.0 Magnesium (mg/dL) Date Value 06/07/2022 1.9 04/20/2020 1.8 Bilirubin, Total (mg/dL) Date Value 01/25/2023 0.5 05/24/2020 0.5 Alkaline Phosphatase (U/L) Date Value 01/25/2023 73 05/24/2020 68 ALT (U/L) Date Value 01/25/2023 17 05/24/2020 11 AST (U/L) Date Value 01/25/2023 16 05/24/2020 18 Anion Gap (mmol/L) Date Value 01/25/2023 14 05/30/2021 9 Imaging Studies: None Assessment: 1. 82 year old female with a diagnosis of CLL. Patient currently being observed. Continue to see her every 6 months. She remains asymptomatic. No deterioration in her hematological picture noted. Patient again without any B symptoms. Ori Nichole MD [facility] 01-26-2023 History of Present illness Narrative The patient is a 82-year-old female with a diagnosis of CLL. Has been observed. White count in the ranges of around 20,000. Has not required any therapy. She denies any B symptoms. Energy level fair. No loss of appetite. No new lumps or bumps that she can feel. Review Of Systems: General: Denies any fatigue. No fever, chills, night sweats, weight loss, headaches or loss of appetite. Stamina intact. HEENT/Neck: No hearing/vision changes; no pain, masses, or swelling. No evidence of sores in the mouth. Respiratory: No cough, productive sputum, hemoptysis, chest pain, shortness of breath or wheezing. Cardiovascular: No palpatations, chest pain,shotness or breath, exertional dyspnea or leg swelling. Gastrointestinal: No nausea, vomiting, dysphagia, abdominal pain,melana or hematochezia. No diahrea orconstipation. No change in the bowel habbits. Genitourinary: No dysuria, nocturia, frequency, urgency, hematuria or incontinence. Musculoskeletal: No joint or pain bone pain: No limitation of motion. No problems with the gait. Neurological: No sensory or motor abnormalities; no headaches or dizziness. Dermatologic: No rash, skin lesions or itching. Psychiatric: No sleep disturbances, mood disorders, depression, etc. Hematologic: No bleeding, bruising or echymisis. Lymphatic System: No new lymph gland enlargement or and new lumps of bumps in the body. Endocrine: No heat or cold intolerance, diabetes or other abnormalities The rest of systems reviewed and essentially unremarkable. Physical Examination: BP 135/84 Pulse (!) 56 Resp 18 SpO2 96% The patient was awake alert oriented. Didn't appear to be in acute distress. HEENT: No pallor, icterus, cyanosis, oral cavity shows no evidence of mucositis, lesions, or ulcers. Trachea midline. No JVD, carotid bruit, thyromegaly, cervical lymphadenopathy or supra-infraclavicular lymphadenopathy. CVS: S1-S2 heard no S3 no murmurs or pericardial rub. No peripheral edema. Lungs: Chest wall nontender. No dullness to percussion. Clear to auscultation bilaterally. No rhonchi or rales noted. No pleural rub or at it sounds noted. Abdomen: Normal inspection, nondistended no dilated veins. Soft nontender no organomegaly. No palpable masses noted. Hem/ Lymph: No peripheral lymphadenopathy or any palpable masses. Neuro Exam: High mental functions were normal. Cranial nerves II through XII are normal. No gross abnormality noted on sensory or motor system exam. Musculoskeletal: No joint deformities noted. No evidence of synovitis, swelling or tenderness in the joints or bursitis. Skin: No evidence to suggest any bruising, ecchymosis, petechiae and symptoms of hand-foot syndrome. Labs: DATA: Diagnostic tests reviewed for today's visit: Most recent labs and imaging results. CBC: WBC (k/uL) Date Value 01/25/2023 23.87 05/30/2021 20.22 RBC (m/uL) Date Value 01/25/2023 4.30 05/30/2021 4.50 Hemoglobin (g/dL) Date Value 01/25/2023 13.5 05/30/2021 14.5 Hematocrit (%) Date Value 01/25/2023 40.3 05/30/2021 45.5 Platelet Count (k/uL) Date Value 01/25/2023 213 05/30/2021 175 MCV (fL) Date Value 01/25/2023 93.7 05/30/2021 101.1 MCH Date Value 01/25/2023 31.4 pg 05/30/2021 32.2 pG MPV (fL) Date Value 01/25/2023 12.1 05/30/2021 11.9 CMP: Sodium (mmol/L) Date Value 01/25/2023 140 05/30/2021 143 Chloride (mmol/L) Date Value 01/25/2023 98 05/30/2021 105 CO2 (mmol/L) Date Value 01/25/2023 28 05/30/2021 29 BUN (mg/dL) Date Value 01/25/2023 28 05/30/2021 23 Creatinine (mg/dL) Date Value 01/25/2023 0.90 05/30/2021 0.65 Glucose (mg/dL) Date Value 01/25/2023 333 05/30/2021 144 Protein, Total (g/dL) Date Value 01/25/2023 6.5 05/24/2020 6.8 Calcium (mg/dL) Date Value 05/30/2021 9.2 Calcium, Total (mg/dL) Date Value 01/25/2023 9.0 Magnesium (mg/dL) Date Value 06/07/2022 1.9 04/20/2020 1.8 Bilirubin, Total (mg/dL) Date Value 01/25/2023 0.5 05/24/2020 0.5 Alkaline Phosphatase (U/L) Date Value 01/25/2023 73 05/24/2020 68 ALT (U/L) Date Value 01/25/2023 17 05/24/2020 11 AST (U/L) Date Value 01/25/2023 16 05/24/2020 18 Anion Gap (mmol/L) Date Value 01/25/2023 14 05/30/2021 9 Imaging Studies: None Assessment: 1. 82 year old female with a diagnosis of CLL. Patient currently being observed. Continue to see her every 6 months. She remains asymptomatic. No deterioration in her hematological picture noted. Patient again without any B symptoms. Ori Nichole MD documented in this encounter [facility] 07-24-2022 Note HNO ID: [id number] Author: Ori Nichole MD Service: ? Author Type: Physician Type: Progress Notes Filed: 07/24/2022 11:13 AM Note Text: The patient is a 81-year-old female with a diagnosis of CLL. She was seen by me 6 months ago. White count in the ranges of around 20,000. She has no B symptoms. The hemoglobin and the platelets have remained stable. No new lumps or bumps. No difficulty swallowing. No issues with night sweats. No issues with weight loss. Lab work: 06/08/22 06/09/22 07/24/22 WBC 19.28 (A) 18.13 (A) 22.60 (A) RBC 4.31 4.36 4.39 Hemoglobin 13.7 13.8 13.7 Hemoglobin Total, Whole Blood Hematocrit 42.1 41.7 42.4 MCV 97.7 95.6 96.6 MCH 31.8 31.7 31.2 MCHC 32.5 33.1 32.3 RDW-CV 12.3 12.2 12.6 Platelet Count 172 180 161 MPV 11.8 11.5 11.5 Neut% 25.0 19.0 30.0 Lymph% 65.0 71.0 70.0 Platte% 4.0 5.0 0.0 Eosin% 5.0 5.0 0.0 Baso% 1.0 0.0 0.0 Abs Neut (ANC) 4.82 3.44 6.78 Abs Lymph 12.53 (A) 12.87 (A) 15.82 (A) Abs Platte 0.77 0.91 (A) 0.00 Abs Eosin 0.96 (A) 0.91 (A) 0.00 Abs Baso 0.19 (A) 0.00 0.00 On examination:BP 128/70 Pulse 68 Wt 78.5 kg (173 lb) SpO2 97% BMI 34.94 kg/m? The patient was awake alert oriented. Didn't appear to be in acute distress. HEENT: No pallor, icterus, cyanosis, oral cavity shows no evidence of mucositis, lesions, or ulcers. Trachea midline. No JVD, carotid bruit, thyromegaly, cervical lymphadenopathy or supra-infraclavicular lymphadenopathy. CVS: S1-S2 heard no S3 no murmurs or pericardial rub. No peripheral edema. Lungs: Chest wall nontender. No dullness to percussion. Clear to auscultation bilaterally. No rhonchi or rales noted. No pleural rub or at it sounds noted. Abdomen: Normal inspection, nondistended no dilated veins. Soft nontender no organomegaly. No palpable masses noted. Hem/ Lymph: No peripheral lymphadenopathy or any palpable masses. Neuro Exam: High mental functions were normal. Cranial nerves II through XII are normal. No gross abnormality noted on sensory or motor system exam. Musculoskeletal: No joint deformities noted. No evidence of synovitis, swelling or tenderness in the joints or bursitis. Skin: No evidence to suggest any bruising, ecchymosis, petechiae and symptoms of hand-foot syndrome. Assesment 1. 81-year-old female with a diagnosis of CLL. Stable. No significant change in the white count. No evidence of any anemia or thrombocytopenia. No palpable lymphadenopathy. Continue the same. See her back again in 6 months with repeat blood work. Ori Nichole MD [facility] 07-24-2022 History of Present illness Narrative The patient is a 81-year-old female with a diagnosis of CLL. She was seen by me 6 months ago. White count in the ranges of around 20,000. She has no B symptoms. The hemoglobin and the platelets have remained stable. No new lumps or bumps. No difficulty swallowing. No issues with night sweats. No issues with weight loss. Lab work: 06/08/22 06/09/22 07/24/22 WBC 19.28 (A) 18.13 (A) 22.60 (A) RBC 4.31 4.36 4.39 Hemoglobin 13.7 13.8 13.7 Hemoglobin Total, Whole Blood Hematocrit 42.1 41.7 42.4 MCV 97.7 95.6 96.6 MCH 31.8 31.7 31.2 MCHC 32.5 33.1 32.3 RDW-CV 12.3 12.2 12.6 Platelet Count 172 180 161 MPV 11.8 11.5 11.5 Neut% 25.0 19.0 30.0 Lymph% 65.0 71.0 70.0 Platte% 4.0 5.0 0.0 Eosin% 5.0 5.0 0.0 Baso% 1.0 0.0 0.0 Abs Neut (ANC) 4.82 3.44 6.78 Abs Lymph 12.53 (A) 12.87 (A) 15.82 (A) Abs Platte 0.77 0.91 (A) 0.00 Abs Eosin 0.96 (A) 0.91 (A) 0.00 Abs Baso 0.19 (A) 0.00 0.00 On examination:BP 128/70 Pulse 68 Wt 78.5 kg (173 lb) SpO2 97% BMI 34.94 kg/m The patient was awake alert oriented. Didn't appear to be in acute distress. HEENT: No pallor, icterus, cyanosis, oral cavity shows no evidence of mucositis, lesions, or ulcers. Trachea midline. No JVD, carotid bruit, thyromegaly, cervical lymphadenopathy or supra-infraclavicular lymphadenopathy. CVS: S1-S2 heard no S3 no murmurs or pericardial rub. No peripheral edema. Lungs: Chest wall nontender. No dullness to percussion. Clear to auscultation bilaterally. No rhonchi or rales noted. No pleural rub or at it sounds noted. Abdomen: Normal inspection, nondistended no dilated veins. Soft nontender no organomegaly. No palpable masses noted. Hem/ Lymph: No peripheral lymphadenopathy or any palpable masses. Neuro Exam: High mental functions were normal. Cranial nerves II through XII are normal. No gross abnormality noted on sensory or motor system exam. Musculoskeletal: No joint deformities noted. No evidence of synovitis, swelling or tenderness in the joints or bursitis. Skin: No evidence to suggest any bruising, ecchymosis, petechiae and symptoms of hand-foot syndrome. Assesment 1. 81-year-old female with a diagnosis of CLL. Stable. No significant change in the white count. No evidence of any anemia or thrombocytopenia. No palpable lymphadenopathy. Continue the same. See her back again in 6 months with repeat blood work. Ori Nichole MD documented in this encounter [facility] 06-26-2022 Note HNO ID: [id number] Author: Mony Sapp APRN.OPTICAL INSTRUMENT INSPECTOR Service: ? Author Type: Nurse Practitioner Type: Progress Notes Filed: 06/26/2022 1:57 PM Note Text: Connected Care Unit Progress Note Patient Name: Idris Fox Patient Facility: [facility] Admit Date 06/12/22 Level of Care: Skilled SNF Attending: Haydee Majano M.D. Service Date: 06/26/2022 Code Status: full Chief Complaint: Evaluation regarding Follow up multiple comorbidities ASSESSMENT AND PLAN (R53.1) Generalized weakness (primary encounter diagnosis) - PT/OT (F03.B0) Moderate dementia without behavioral disturbance, psychotic disturbance, mood disturbance, or anxiety, unspecified dementia type - AOx2 today - atarax 25mg tid prn for anxiety - venlafaxine per order - psych following (I10) Essential hypertension - indapamide 2.5mg every day (D72.829) Leukocytosis, unspecified type (C91.10) CLL (chronic lymphocytic leukemia) (HCC) - WBC= 24 - baseline WBC~20 - f/u Dr. Nichole oncology - no s/s infection now (R60.0) Localized edema - nursing c/o increased BLE edema - weight Q M-Th - change tubigrips to RUI hose - lasix 20mg every day - KCL 20 meq every day - serial labs Appointments for Next 60 Days Date Time Provider Location Dept Phone 07/24/2022 10:40 AM ORI NICHOLESUF [facility] [phone] HPI: (Per DC summary) This is a 81 year old female, with a PMH of CLL (follows with Dr. Nichole), HTN, DJD, Glaucoma and Mild Cognitive Impairment, who presented to the ED on 06/03/22 with right lower leg redness and swelling. She reported a history of swelling in both of her legs, which was improved recently. She said she had had some redness in her left lower leg but this had resolved. She had 2 ulcers on her right lundy with worsening redness and tenderness. She was not sure how long this had been going on. She denied any fevers or chills or other symptoms. Family was with her in the ED and reported concerns of hoarding and the patient wandering outside to her neighbors. In the ED, she was afebrile. K 4.0, Cr 0.7, LFTs nl, WBC 21.8, Hgb 13.4. Troponin T <0.010, ETOH <11, Lactate 1.2. COVID-[address] Brain showed NAD. She was given IV Rocephin and admitted to a medical bed. Ancef 2 grams IV q 8hrs ordered. Blood and Urine Cultures were pending. ID and W[facility] consulted. Psychology was consulted. On 06/04, improvement in right leg erythema was noted. The patient was treated with IV antibiotics until 06/10 and switched to cephalexin to finish on 06/12. Topical Bactroban's to be applied over the 2 lesions until 06/19. Her family did not even realize she had the cellulitis until she got to the emergency department. Their main concern was she had been wandering and getting lost. Previously she had stayed in the garage and the barn and house but now has started wandering off onto the road. She also lost her cell phone and this was her Lifeline for safety. She was seen by psychology and infectious disease. Wound care also addressed her wounds. She is not felt to be competent and in the past she had designated her [id number] as her designated decision-maker both for healthcare and finances. Principal Problem: Cellulitis of right lower leg Assessment AND Plan: Much improved cephalexin 1 g 3 times daily last dose on June 15 Wound Care Center consulted Active Problems: CLL (chronic lymphocytic leukemia) ([facility]) Assessment AND Plan: Follows with Dr. Nichole On no treatment currently Essential hypertension Assessment AND Plan: BP controlled Continue Indapamide Monitor Right Shoulder Pain Assessment AND Plan: Chronic Right shoulder pain x1 year with significant decreased ROM XR Right Shoulder: severe DJD, evidence for chronic rotator cuff tear with superior migration of the humeral head Amnestic MCI (mild cognitive impairment with memory loss) Assessment AND Plan: Patient deemed not to be competent because of potential for wandering off and getting distracted losing [place] cell phone[place] danger to herself. Admitted at [facility] -pending pre-CERT PAST MEDICAL HISTORY Diagnosis Date Arthritis knee pain Benign essential HTN CLL (chronic lymphocytic leukemia) ([facility]) Head trauma 05/20/2010 Leaking of conjunctival drainage bleb 05/21/2010 OS POAG (primary open-angle glaucoma) Pseudophakia of both eyes SUBJECTIVE: Review of Systems Unable to perform ROS: Dementia No reports of falls/injuries, changes in cognition/behaviors, or any uncontrolled pain exacerbations. Medications: Medications listed in Epic during SNF admission may not be current. Refer to facility record. Patient records, current medications, most recent labs, family/social history (unchanged) Reviewed. Refer to facility records. OBJECTIVE: Labs/diagnostics: Vital Signs: BP 139/54 Pulse 67 Temp 36.4 ?C (97.5 ?F) (more content not included)... [facility] 06-26-2022 History of Present illness Narrative Images from the original note were not included. Connected Care Unit Progress Note Patient Name: Idris Fox Patient Facility: [facility] Admit Date 06/12/22 Level of Care: Skilled SNF Attending: Haydee Majano M.D. Service Date: 06/26/2022 Code Status: full Chief Complaint: Evaluation regarding Follow up multiple comorbidities ASSESSMENT AND PLAN (R53.1) Generalized weakness (primary encounter diagnosis) - PT/OT (F03.B0) Moderate dementia without behavioral disturbance, psychotic disturbance, mood disturbance, or anxiety, unspecified dementia type - AOx2 today - atarax 25mg tid prn for anxiety - venlafaxine per order - psych following (I10) Essential hypertension - indapamide 2.5mg every day (D72.829) Leukocytosis, unspecified type (C91.10) CLL (chronic lymphocytic leukemia) (HCC) - WBC= 24 - baseline WBC~20 - f/u Dr. Nichole oncology - no s/s infection now (R60.0) Localized edema - nursing c/o increased BLE edema - weight Q M-Th - change tubigrips to RUI hose - lasix 20mg every day - KCL 20 meq every day - serial labs Appointments for Next 60 Days Date Time Provider Location Dept Phone 07/24/2022 10:40 AM ORI NICOHLE [facility] [phone] HPI: (Per DC summary) This is a 81 year old female, with a PMH of CLL (follows with Dr. Nichole), HTN, DJD, Glaucoma and Mild Cognitive Impairment, who presented to the ED on 06/03/22 with right lower leg redness and swelling. She reported a history of swelling in both of her legs, which was improved recently. She said she had had some redness in her left lower leg but this had resolved. She had 2 ulcers on her right lundy with worsening redness and tenderness. She was not sure how long this had been going on. She denied any fevers or chills or other symptoms. Family was with her in the ED and reported concerns of hoarding and the patient wandering outside to her neighbors. In the ED, she was afebrile. K 4.0, Cr 0.7, LFTs nl, WBC 21.8, Hgb 13.4. Troponin T <0.010, ETOH <11, Lactate 1.2. COVID-[address] Brain showed NAD. She was given IV Rocephin and admitted to a medical bed. Ancef 2 grams IV q 8hrs ordered. Blood and Urine Cultures were pending. ID and Wound Care Clinic consulted. Psychology was consulted. On 06/04, improvement in right leg erythema was noted. The patient was treated with IV antibiotics until 06/10 and switched to cephalexin to finish on 06/12. Topical Bactroban's to be applied over the 2 lesions until 06/19. Her family did not even realize she had the cellulitis until she got to the emergency department. Their main concern was she had been wandering and getting lost. Previously she had stayed in the garage and the barn and house but now has started wandering off onto the road. She also lost her cell phone and this was her Lifeline for safety. She was seen by psychology and infectious disease. Wound care also addressed her wounds. She is not felt to be competent and in the past she had designated her [id number] as her designated decision-maker both for healthcare and finances. Principal Problem: Cellulitis of right lower leg Assessment & Plan: Much improved cephalexin 1 g 3 times daily last dose on June 15 Wound Care Center consulted Active Problems: CLL (chronic lymphocytic leukemia) ([facility]) Assessment & Plan: Follows with Dr. Nichole On no treatment currently Essential hypertension Assessment & Plan: BP controlled Continue Indapamide Monitor Right Shoulder Pain Assessment & Plan: Chronic Right shoulder pain x1 year with significant decreased ROM XR Right Shoulder: severe DJD, evidence for chronic rotator cuff tear with superior migration of the humeral head Amnestic MCI (mild cognitive impairment with memory loss) Assessment & Plan: Patient deemed not to be competent because of potential for wandering off and getting distracted losing her cell phone. [place] and [place] be a danger to herself. Admitted at [facility] -pending pre-CERT PAST MEDICAL HISTORY Diagnosis Date Arthritis knee pain Benign essential HTN CLL (chronic lymphocytic leukemia) ([facility]) Head trauma 05/20/2010 Leaking of conjunctival drainage bleb 05/21/2010 OS POAG (primary open-angle glaucoma) Pseudophakia of both eyes SUBJECTIVE: Review of Systems Unable to perform ROS: Dementia No reports of falls/injuries, changes in cognition/behaviors, or any uncontrolled pain exacerbations. Medications: Medications listed in Epic during SNF admission may not be current. Refer to facility record. Patient records, current medications, most recent labs, family/social history (unchanged) Reviewed. Refer to facility records. OBJECTIVE: Labs/diagnostics: Vital Signs: BP 139/54 Pulse 67 Temp 36.4 C (97.5 F) Resp 18 Wt 78.5 kg (173 lb) SpO2 96% BMI 34.94 kg/m Physical Exam: Physical Exam Constitutional: General: She is not in acute distress. HENT: Head: Normocephalic and atraumatic. Right Ear: External ear normal. Left Ear: External ear normal. Nose: Nose normal. Mouth/Throat: Mouth: Mucous membranes are moist. Eyes: Extraocular Movements: Extraocular movements intact. Pupils: Pupils are equal, round, and reactive to light. Cardiovascular: Rate and Rhythm: Normal rate and regular rhythm. Pulses: Normal pulses. Heart sounds: Normal heart sounds. No murmur heard. Pulmonary: Effort: No respiratory distress. Breath sounds: Normal breath sounds. Abdominal: General: Bowel sounds are normal. Palpations: Abdomen is soft. Tenderness: There is no abdominal tenderness. Musculoskeletal: Right lower leg: Edema present. Left lower leg: Edema present. Comments: nonpitting Skin: General: Skin is warm and dry. Neurological: Mental Status: She is alert. Comments: aox2 POC discussed with appropriate parties and nursing staff. Electronically signed by Mony Sapp APRN.OPTICAL INSTRUMENT INSPECTOR documented in this encounter [facility] 06-20-2022 Note HNO ID: [id number] Author: Mony Sapp APRN.SONAL Service: ? Author Type: Nurse Practitioner Type: Progress Notes Filed: 06/20/2022 1:11 PM Note Text: Connected Care Unit Progress Note Patient Name: Idris Fox Patient Facility: [facility] Admit Date 06/12/22 Level of Care: Skilled SNF Attending: Haydee Majano M.D. 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 Nichole oncology - no s/s infection now Appointments for Next 60 Days Date Time Provider Location Dept Phone 07/24/2022 10:40 AM ORI NICHOLESUF [facility] [phone] HPI: (Per DC summary) This is a 81 year old female, with a PMH of CLL (follows with Dr. Nichole), HTN, DJD, Glaucoma and Mild Cognitive Impairment, who presented to the ED on 06/03/22 with right lower leg redness and swelling. She reported a history of swelling in both of her legs, which was improved recently. She said she had had some redness in her left lower leg but this had resolved. She had 2 ulcers on her right lundy with worsening redness and tenderness. She was not sure how long this had been going on. She denied any fevers or chills or other symptoms. Family was with her in the ED and reported concerns of hoarding and the patient wandering outside to her neighbors. In the ED, she was afebrile. K 4.0, Cr 0.7, LFTs nl, WBC 21.8, Hgb 13.4. Troponin T <0.010, ETOH <11, Lactate 1.2. COVID-[address] Brain showed NAD. She was given IV Rocephin and admitted to a medical bed. Ancef 2 grams IV q 8hrs ordered. Blood and Urine Cultures were pending. ID and Wound Care [facility] consulted. Psychology was consulted. On 06/04, improvement in right leg erythema was noted. The patient was treated with IV antibiotics until 06/10 and switched to cephalexin to finish on 06/12. Topical Bactroban's to be applied over the 2 lesions until 06/19. Her family did not even realize she had the cellulitis until she got to the emergency department. Their main concern was she had been wandering and getting lost. Previously she had stayed in the garage and the barn and house but now has started wandering off onto the road. She also lost her cell phone and this was her Lifeline for safety. She was seen by psychology and infectious disease. Wound care also addressed her wounds. She is not felt to be competent and in the past she had designated her [id number] as her designated decision-maker both for healthcare and finances. Principal Problem: Cellulitis of right lower leg Assessment AND Plan: Much improved cephalexin 1 g 3 times daily last dose on June 15 Wound Care Center consulted Active Problems: CLL (chronic lymphocytic leukemia) (HCC) Assessment AND Plan: Follows with Dr. Nichole On no treatment currently Essential hypertension Assessment AND Plan: BP controlled Continue Indapamide Monitor Right Shoulder Pain Assessment AND Plan: Chronic Right shoulder pain x1 year with significant decreased ROM XR Right Shoulder: severe DJD, evidence for chronic rotator cuff tear with superior migration of the humeral head Amnestic MCI (mild cognitive impairment with memory loss) Assessment AND Plan: Patient deemed not to be competent because of potential for wandering off and getting distracted losing her cell phone. [place] and [place] be a danger to herself. Admitted at [facility] -pending pre-CERT PAST MEDICAL HISTORY Diagnosis Date Arthritis knee pain Benign essential HTN CLL (chronic lymphocytic leukemia) (HCC) Head trauma 05/20/2010 Leaking of conjunctival drainage bleb 05/21/2010 OS POAG (primary open-angle glaucoma) Pseudophakia of both eyes SUBJECTIVE: Review of Systems Unable to perform ROS: Dementia No reports of falls/injuries, changes in cognition/behaviors, or any uncontrolled pain exacerbations. Medications: Medications listed in Epic during SNF admission may not be current. Refer to facility record. Patient records, current medications, most recent labs, family/social history (unchanged) Reviewed. Refer to facility records. OBJECTIVE: Labs/diagnostics: 06/14/22 Na- 142 K- 4.2 BUN- 34 Cr- 0.7 WBC- 24.2 Hgb- 12.9 Hct- 38.3 Plt- 173 Vital Signs: BP 149/53 Pulse 60 Temp 36.7 ?C (98 ?F) Resp 18 Wt 76.7 kg (169 lb) SpO2 96% BMI 34.13 kg/m? Physical Exam: Ph (more content not included)... [facility] 06-20-2022 History of Present illness Narrative Images from the original note were not included. Connected Care Unit Progress Note Patient Name: Idris Fox Patient Facility: [facility] Admit Date 06/12/22 Level of Care: Skilled SNF Attending: Haydee Majano M.D. 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 Nichole oncology - no s/s infection now Appointments for Next 60 Days Date Time Provider Location Dept Phone 07/24/2022 10:40 AM ORI NICHOLE [facility] [phone] HPI: (Per DC summary) This is a 81 year old female, with a PMH of CLL (follows with Dr. Nichole), HTN, DJD, Glaucoma and Mild Cognitive Impairment, who presented to the ED on 06/03/22 with right lower leg redness and swelling. She reported a history of swelling in both of her legs, which was improved recently. She said she had had some redness in her left lower leg but this had resolved. She had 2 ulcers on her right lundy with worsening redness and tenderness. She was not sure how long this had been going on. She denied any fevers or chills or other symptoms. Family was with her in the ED and reported concerns of hoarding and the patient wandering outside to her neighbors. In the ED, she was afebrile. K 4.0, Cr 0.7, LFTs nl, WBC 21.8, Hgb 13.4. Troponin T <0.010, ETOH <11, Lactate 1.2. COVID-[address] Brain showed NAD. She was given IV Rocephin and admitted to a medical bed. Ancef 2 grams IV q 8hrs ordered. Blood and Urine Cultures were pending. ID and Wound Care Clinic consulted. Psychology was consulted. On 06/04, improvement in right leg erythema was noted. The patient was treated with IV antibiotics until 06/10 and switched to cephalexin to finish on 06/12. Topical Bactroban's to be applied over the 2 lesions until 06/19. Her family did not even realize she had the cellulitis until she got to the emergency department. Their main concern was she had been wandering and getting lost. Previously she had stayed in the garage and the barn and house but now has started wandering off onto the road. She also lost her cell phone and this was her Lifeline for safety. She was seen by psychology and infectious disease. Wound care also addressed her wounds. She is not felt to be competent and in the past she had designated her [id number]-uok as her designated decision-maker both for healthcare and finances. Principal Problem: Cellulitis of right lower leg Assessment & Plan: Much improved cephalexin 1 g 3 times daily last dose on June 15 Wound Care Center consulted Active Problems: CLL (chronic lymphocytic leukemia) ([facility]) Assessment & Plan: Follows with Dr. Nichole On no treatment currently Essential hypertension Assessment & Plan: BP controlled Continue Indapamide Monitor Right Shoulder Pain Assessment & Plan: Chronic Right shoulder pain x1 year with significant decreased ROM XR Right Shoulder: severe DJD, evidence for chronic rotator cuff tear with superior migration of the humeral head Amnestic MCI (mild cognitive impairment with memory loss) Assessment & Plan: Patient deemed not to be competent because of potential for wandering off and getting distracted losing [place] cell phone[place] danger to herself. Admitted at [facility] -pending pre-CERT PAST MEDICAL HISTORY Diagnosis Date Arthritis knee pain Benign essential HTN CLL (chronic lymphocytic leukemia) ([facility]) Head trauma 05/20/2010 Leaking of conjunctival drainage bleb 05/21/2010 OS POAG (primary open-angle glaucoma) Pseudophakia of both eyes SUBJECTIVE: Review of Systems Unable to perform ROS: Dementia No reports of falls/injuries, changes in cognition/behaviors, or any uncontrolled pain exacerbations. Medications: Medications listed in Epic during SNF admission may not be current. Refer to facility record. Patient records, current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 https://ccf.[email or web address]/docvie [email or web address]/?[email or web address] Against Medical Advice ( AMA ) Attachment A- Evaluation of Capacity [email or web address] Against Medical Advice ( AMA ) Attachment B- Release of Responsibility [email or web address] Patients Without Surrogate Standard Operating Procedure [email or web address] Signature: Efren Bronson MD [facility] APS Josie Meyer [phone] patient should try to leave facility please call the APS Dr. Tapia is seen the patient and the patient did not remember her when she came back the next day having even been there. The patient's jtkoco-je-onv says that she wanders off from the house and has lost her phone. Before she did that, her jvxqbz-ee-djy thought the patient could cope with just staying in the house and going to the barn. But with this new behavior, it is much more dangerous. She could be hit by a car or become lost and from exposure. CLL -to follow absolute neutrophil count and it is normal Continue antibiotics until June 15-Ancef 2 g IV but at discharge we will start cephalexin 1 g 3 times daily until 06/15. Will be stopping laboratory studies are absolute neutrophils good she has CLL but is not significant but she will require longer course of antibiotics because of that. Hkmqcd-dn-yts will be getting choices for placement set up and Dr. Tapia is arranging to find what we will need to do to assign a power of defense attorney either while in the hospital or at the facility. Patient may not sign out AMA Reason for Admission: Right leg cellulitis with concern for patient's safety at home and potential cognitive impairment complicated by prior stroke Consultants: Dr. Lopes for infectious disease Dr. Tapia for psychology Practitioner Stealber for wound care PROCEDURES: NONE Disposition: Accepted at [facility] -awaiting precertification EK06/05/[address]-T changes with long QTC-QTC new change from 06/03/2022 and the long QTC seems to be from a prominent U wave not present on admission. The patient was not hypokalemic or any medication that commonly causes this. Magnesium level was 1.7 on admission getting repeat magnesium level which were normal and repeat EKG on 06/07/2022 is normal T waves and unchanged from 06/05/2022 ECHO: None No results for input(s): PH, PHABG, PCO2, PO2, HCO3, BEABG, BE, VPH, VPC2, VPO2C, PCQ6BJO, VBE, BICARB, PHCAP, ZAQ8MXK, PO2POC, CQB2MYT, BEPOC, LACT in the last 168 hours. No results for input(s): GLB, GLUCOSEPOC, HCTPOC, HGBPOC, HCTVBG, HGBVGB, B6ESCSO, O2HB, O2CT, COHB, MHGB, KWB, CLWH, IC in the last 168 hours. Invalid input(s): NAB Recent Labs 06/09/2245606/08/2245606/07/22 0517 MCV 95.6 97.7 95.9 96.1 MCH 31.7 31.8 31.9 32.6 MPV 11.5 11.8 12.2 11.5 Recent Labs 06/09/2245606/08/2245606/07/22 0517 WBC 18.13* 19.28* 18.75* 18.78* RBC 4.36 4.31 4.17 4.08 HB 13.8 13.7 13.3 13.3 HCT 41.7 42.1 40.0 39.2 PLT 180 172 179 171 MCV 95.6 97.7 95.9 96.1 MCH 31.7 31.8 31.9 32.6 MPV 11.5 11.8 12.2 11.5 ABSNEUT 3.44 4.82 4.31 NEUTP 19.0 25.0 23.0 LYMPHP 71.0 65.0 73.0 MONOP 5.0 4.0 4.0 Recent Labs 06/09/2245606/08/2245606/07/22 0517 06/04/22 0551 06/03/22 1144 GLUC 139* 167* 120* < > 172* NA 142 141 140 < > 142 K 4.3 4.2 4.4 < > 4.0 CHLOR 103 103 103 < > 104 CO2 29 28 27 < > 30 CREAT 0.71 0.65 0.70 < > 0.72 BUN 31* 24* 31* < > 25* ANION 10 10 10 < > 8* CA 9.2 9.5 9.2 < > 9.6 TPROT -- -- -- -- 6.3 ALB -- -- -- -- 3.9 TBILI -- -- -- -- 0.4 ALKPHOS -- -- -- -- 66 AST -- -- -- -- 15 (more content not included)... [facility] 06-09-2022 Note HNO ID: [id number] Author: Efren Bronson MD Service: Hospital Medicine Author Type: Physician Type: Progress Notes Filed: 06/09/2022 3:11 PM Note Text: DEPARTMENT OF HOSPITAL MEDICINE PROGRESS NOTE SERVICE DATE: 06/09/2022 SERVICE TIME: 2:37 PM Hospital Medicine/Primary Attending: Efren Bronson MD NIGHT AND WEEKEND COVERAGE: CANAAN COVERAGE: Nights: [phone], please page [place] [facility] Night coverage pager [phone]. ASSESSMENT: She has some mild dementia and is questionable whether she is competent to live alone and for cellulitis right leg At present, patient lacks sufficient decision making ability to make informed decisions to leave the hospital due to a current condition of Dementia Therefore, Idris Fox should not be allowed to leave the hospital against medical advice. The patient will be reevaluated within 24 hours for assessment of their decision making ability to make informed decisions to leave the hospital. An attempt will be made to identify an appropriate surrogate decision maker to be an active participant in this patients care. The LIP should follow the [facility] patient management guidance referenced below (can be pasted into browser): Against Medical Advice ( AMA ) Policy [email or web address] [email or web address] Against Medical Advice ( AMA ) Attachment A- Evaluation of Capacity [email or web address] [email or web address] Against Medical Advice ( AMA ) Attachment B- Release of Responsibility [email or web address] [email or web address] Patients Without Surrogate Standard Operating Procedure [email or web address] Signature: Efren Bronson MD [facility] APS Josie Meyer [phone] patient should try to leave facility please call the APS Dr. Tapia is seen the patient and the patient did not remember her when she came back the next day having even been there. The patient's exaskg-ys-hoj says that she wanders off from the house and has lost her phone. Before she did that, her tmimph-hx-icl thought the patient could cope with just staying in the house and going to the barn. But with this new behavior, it is much more dangerous. She could be hit by a car or become lost and from exposure. CLL -to follow absolute neutrophil count and it is normal Continue antibiotics until June 15-Ancef 2 g IV but at discharge we will start cephalexin 1 g 3 times daily until 06/15. Will be stopping laboratory studies are absolute neutrophils good she has CLL but is not significant but she will require longer course of antibiotics because of that. Svlpue-ji-reg will be getting choices for placement set up and Dr. Tapia is arranging to find what we will need to do to assign a power of defense attorney either while in the hospital or at the facility. Patient may not sign out AMA Reason for Admission: Right leg cellulitis with concern for patient's safety at home and potential cognitive impairment complicated by prior stroke Consultants: Dr. Lopes for infectious disease Dr. Tapia for psychology Practitioner Steiber for wound care PROCEDURES: NONE Disposition: A locked facility so patient will not wander and be injured EK06/05/[address]-T changes with long QTC-QTC new change from 06/03/2022 and the long QTC seems to be from a prominent U wave not present on admission. The patient was not hypokalemic or any medication that commonly causes this. Magnesium level was 1.7 on admission getting repeat magnesium level which were normal and repeat EKG on 06/07/2022 is normal T waves and unchanged from 06/05/2022 ECHO: None Recent Labs 06/03/22 1304 VPC2 49 VPO2C 32* VBE 5* BICARB 30* LACT 1.2 Recent Labs 06/03/22 1304 KWB 3.3* Recent Labs 06/09/22 0457 06/08/22 0457 06/07/22 0517 06/04/22 0551 06/03/22 1144 TROPT -- -- -- -- <0.010 MCV 95.6 97.7 95.9 96.1 < > 97.4 MCH 31.7 31.8 31.9 32.6 < > 31.8 MPV 11.5 11.8 12.2 11.5 < > 11.4 < > = values in this interval not displayed. Recent Labs 06/09/2245606/08/2245606/07/22516 WBC 18.13* 19.28* 18.75* 18.78* RBC 4.36 4.31 4.17 4.08 HB 13.8 13.7 13.3 13.3 HCT 41.7 42.1 40.0 39.2 PLT 180 172 179 171 MCV 95.6 97.7 95.9 96.1 MCH 31.7 31.8 31.9 32.6 MPV 11.5 11.8 12.2 11.5 ABSNEUT 3.44 4.82 4.31 NEUTP 19.0 25.0 23.0 LYMPHP 71.0 65.0 73.0 MONOP 5.0 4.0 4.0 Recent Labs 06/09/2245606/08/2245606/07/22 0506/04/2251 06/03/22 1144 GLUC 139* 167* 120* < > 172* NA 142 141 140 < > 142 K 4.3 4.2 4.4 < > 4.0 CHLOR 103 103 103 < > 104 CO2 29 28 27 < > 30 CREAT 0.71 0.65 0.70 < > 0.72 BUN 31* 24* 31* < > 25* ANION 10 10 10 < > 8* CA 9.2 9.5 9.2 < > 9.6 TPROT -- -- -- -- 6.3 ALB -- -- -- -- 3.9 TBILI -- -- -- -- 0.4 ALKPHOS -- -- -- -- 66 AST -- -- -- -- 15 ALT -- -- -- -- 8 < > = values in this interval not displayed. Re (more content not included)... [facility] 06-09-2022 Note HNO ID: [id number] Author: Efren Bronson MD Service: Hospital Medicine Author Type: Physician Type: Plan of Care Filed: 06/09/2022 11:38 AM Note Text: At present, patient lacks sufficient decision making ability to make informed decisions to leave the hospital due to a current condition of Dementia Therefore, Idris Fox should not be allowed to leave the hospital against medical advice. The patient will be reevaluated within 24 hours for assessment of their decision making ability to make informed decisions to leave the hospital. An attempt will be made to identify an appropriate surrogate decision maker to be an active participant in this patients care. The LIP should follow the [email or web address] patient management guidance referenced below (can be pasted into browser): Against Medical Advice ( AMA ) Policy https://GetMyRx/V[employer]ugo [employer] [email or web address] Against Medical Advice ( AMA ) Attachment A- Evaluation of Capacity https://GetMyRx/V[employer]ug[employer] [email or web address] Against Medical Advice ( AMA ) Attachment B- Release of Responsibility [email or web address] [email or web address] Patients Without Surrogate Standard Operating Procedure [email or web address] [email or web address] Signature: Efren Bronson MD [facility] 06-08-2022 Note HNO ID: [id number] Author: Efren Bronson MD Service: Hospital Medicine Author Type: Physician Type: Progress Notes Filed: 06/08/2022 5:08 PM Note Text: DEPARTMENT OF HOSPITAL MEDICINE PROGRESS NOTE SERVICE DATE: 06/08/2022 SERVICE TIME: 5:01 PM Hospital Medicine/Primary Attending: Efren Bronson MD NIGHT AND WEEKEND COVERAGE: CANAAN COVERAGE: Nights: [phone], please page [facility] Hospital[facility] Night coverage pager [phone]. ASSESSMENT: She has some mild dementia and is questionable whether she is competent to live alone and for cellulitis right leg Dr. Tapia is seen the patient and the patient did not remember her when she came back the next day having even been there. The patient's bxpbvb-ak-myv says that she wanders off from the house and has lost her phone. Before she did that, her rpjddm-zp-vyu thought the patient could cope with just staying in the house and going to the barn. But with this new behavior, it is much more dangerous. She could be hit by a car or become lost and from exposure. CLL -to follow absolute neutrophil count and it is normal today Continue Ancef 2 g IV but cellulitis is nearly resolved and eschar is softening with the Bactroban she should be ready to switch to oral antibiotics tomorrow . With infection treated the patient would be ready for discharge for placement as soon as arrangements can be made. It appears from the information we have she would need a locked facility. Reason for Admission: Right leg cellulitis with concern for patient's safety at home and potential cognitive impairment complicated by prior stroke Consultants: Dr. Lopes for infectious disease Dr. Tapia for psychology Practitioner Shell for wound care PROCEDURES: NONE Disposition: To be determined EK06/05/[address]-T changes with long QTC-QTC new change from 06/03/2022 and the long QTC seems to be from a prominent U wave not present on admission. The patient was not hypokalemic or any medication that commonly causes this. Magnesium level was 1.7 on admission getting repeat magnesium level which were normal and repeat EKG on 06/07/2022 is normal T waves and unchanged from 06/05/2022 ECHO: None Recent Labs 06/03/22 1304 VPC2 49 VPO2C 32* VBE 5* BICARB 30* LACT 1.2 Recent Labs 06/03/22 1304 KWB 3.3* Recent Labs 06/08/2245606/07/2251606/06/22 0508 06/04/22 0551 06/03/22 1144 TROPT -- -- -- -- <0.010 MCV 97.7 95.9 96.1 94.6 < > 97.4 MCH 31.8 31.9 32.6 31.8 < > 31.8 MPV 11.8 12.2 11.5 11.5 < > 11.4 < > = values in this interval not displayed. Recent Labs 06/08/2245606/07/2251606/06/22 0508 06/04/22 0551 06/03/22 1144 WBC 19.28* 18.75* 18.78* 16.16* < > 21.76* RBC 4.31 4.17 4.08 4.28 < > 4.21 HB 13.7 13.3 13.3 13.6 < > 13.4 HCT 42.1 40.0 39.2 40.5 < > 41.0 PLT 172 179 171 167 < > 174 MCV 97.7 95.9 96.1 94.6 < > 97.4 MCH 31.8 31.9 32.6 31.8 < > 31.8 MPV 11.8 12.2 11.5 11.5 < > 11.4 ABSNEUT 4.82 4.31 -- -- 5.24 NEUTP 25.0 23.0 -- -- 24.1 LYMPHP 65.0 73.0 -- -- 71.6 MONOP 4.0 4.0 -- -- 3.1 < > = values in this interval not displayed. Recent Labs 06/08/2245606/07/2251606/06/2250706/04/2255006/03/22 1144 GLUC 167* 120* 126* < > 172* NA 141 140 142 < > 142 K 4.2 4.4 4.7 < > 4.0 CHLOR 103 103 104 < > 104 CO2 28 27 28 < > 30 CREAT 0.65 0.70 0.78 < > 0.72 BUN 24* 31* 26* < > 25* ANION 10 10 10 < > 8* CA 9.5 9.2 9.5 < > 9.6 TPROT -- -- -- -- 6.3 ALB -- -- -- -- 3.9 TBILI -- -- -- -- 0.4 ALKPHOS -- -- -- -- 66 AST -- -- -- -- 15 ALT -- -- -- -- 8 < > = values in this interval not displayed. Recent Labs 06/08/2245606/07/2251606/06/22 0508 GLUC 167* 120* 126* Recent Labs 06/03/22 1304 LACT 1.2 Recent Labs 06/08/2245606/07/2251606/06/22 0508 06/04/22 0551 06/03/22 1144 BUN 24* 31* 26* < > 25* CREAT 0.65 0.70 0.78 < > 0.72 CA 9.5 9.2 9.5 < > 9.6 MG -- 1.9 -- -- 1.7 < > = values in this interval not displayed. 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 Nichole), HTN, DJD, Glaucoma and Mild Cognitive Impairment, who presented to the ED on 06/03/22 with right lower leg redness and swelling. She reported a history of swelling in both of her legs, which was improved recently. She said she had had some redness in her left lower leg but this had resolved. She had 2 ulcers on her right lundy with worsening redness and tenderness. She was not sure how long this had been going on. She denied any fevers or chills or other symptoms. Family was with (more content not included)... [facility] 06-07-2022 Note HNO ID: [id number] Author: Efren Bronson MD Service: Hospital Medicine Author Type: Physician Type: Progress Notes Filed: 06/07/2022 11:27 AM Note Text: DEPARTMENT OF HOSPITAL MEDICINE PROGRESS NOTE SERVICE DATE: 06/07/2022 SERVICE TIME: 10:16 AM Hospital Medicine/Primary Attending: Efren Bronson MD NIGHT AND WEEKEND COVERAGE: CANAAN COVERAGE: Nights: [phone], please page [place] [facility] Night coverage pager [phone]. ASSESSMENT: Should read 2 reasons. She has some mild dementia and is questionable whether she is competent to live alone and for cellulitis right leg No chest pain or shortness of breath. Awaiting assessment by psychology-Dr. Tapia will see today Getting gift she has CLL want to see how much of this is a neutrophilic response PLAN Continue Ancef 2 g IV but cellulitis now there is some hard eschar over the 2 areas we will treat this with Bactroban she still has an area about 15 cm x 10 cm that is still very warm Await Dr. Tapia's assessment-conferred with Dr. Tapia Magnesium level for the long QTC U wave that was very prominent Repeat EKG because of the QTC being over 600 with the U waves on last EKG-my interpretation see below Reason for Admission: Right leg cellulitis with concern for patient's safety at home and potential cognitive impairment complicated by prior stroke Consultants: Dr. Lopes for infectious disease Dr. Tapia for psychology Practitioner Stealber for wound care PROCEDURES: NONE Disposition: To be determined EK06/05/[address]-T changes with long QTC-QTC new change from 06/03/2022 and the long QTC seems to be from a prominent U wave not present on admission. The patient was not hypokalemic or any medication that commonly causes this. Magnesium level was 1.7 on admission getting repeat magnesium level which were normal and repeat EKG on 06/07/2022 is normal T waves and unchanged from 06/05/2022 ECHO: None Recent Labs 06/03/22 1304 VPC2 49 VPO2C 32* VBE 5* BICARB 30* LACT 1.2 Recent Labs 06/03/22 1304 KWB 3.3* Recent Labs 06/07/22 0506/06/22 0508 06/05/22 0329 06/04/22 0551 06/03/22 1144 TROPT -- -- -- -- <0.010 MCV 96.1 94.6 97.1 < > 97.4 MCH 32.6 31.8 31.3 < > 31.8 MPV 11.5 11.5 11.9 < > 11.4 < > = values in this interval not displayed. Recent Labs 06/07/22 0506/06/22 0508 06/05/22 0329 06/04/22 0551 06/03/22 1144 WBC 18.78* 16.16* 19.73* < > 21.76* RBC 4.08 4.28 4.09 < > 4.21 HB 13.3 13.6 12.8 < > 13.4 HCT 39.2 40.5 39.7 < > 41.0 PLT 171 167 173 < > 174 MCV 96.1 94.6 97.1 < > 97.4 MCH 32.6 31.8 31.3 < > 31.8 MPV 11.5 11.5 11.9 < > 11.4 ABSNEUT -- -- -- -- 5.24 NEUTP -- -- -- -- 24.1 LYMPHP -- -- -- -- 71.6 MONOP -- -- -- -- 3.1 < > = values in this interval not displayed. Recent Labs 06/07/2251606/06/2250706/05/2232806/04/2251 06/03/22 1144 GLUC 120* 126* 117* < > 172* NA 140 142 140 < > 142 K 4.4 4.7 4.3 < > 4.0 CHLOR 103 104 103 < > 104 CO2 27 28 28 < > 30 CREAT 0.70 0.78 0.88 < > 0.72 BUN 31* 26* 25* < > 25* ANION 10 10 9 < > 8* CA 9.2 9.5 8.9 < > 9.6 TPROT -- -- -- -- 6.3 ALB -- -- -- -- 3.9 TBILI -- -- -- -- 0.4 ALKPHOS -- -- -- -- 66 AST -- -- -- -- 15 ALT -- -- -- -- 8 < > = values in this interval not displayed. Recent Labs 06/07/2251606/06/2250706/05/22 0329 GLUC 120* 126* 117* Recent Labs 06/03/22 1304 LACT 1.2 Recent Labs 06/07/2251606/06/2250706/05/229 06/04/2251 06/03/22 1144 BUN 31* 26* 25* < > 25* CREAT 0.70 0.78 0.88 < > 0.72 CA 9.2 9.5 8.9 < > 9.6 MG 1.9 -- -- -- 1.7 < > = values in this interval not displayed. 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 Nichoel), HTN, DJD, Glaucoma and Mild Cognitive Impairment, who presented to the ED on 06/03/22 with right lower leg redness and swelling. She reported a history of swelling in both of her legs, which was improved recently. She said she had had some redness in her left lower leg but this had resolved. She had 2 ulcers on her right lundy with worsening redness and tenderness. She was not sure how long this had been going on. She denied any fevers or chills or other symptoms. Family was with her in the ED and reported concerns of hoarding and the patient wandering outside to her neighbors. In the ED, she was afebrile. K 4.0, Cr 0.7, LFTs nl, WBC 21.8, Hgb 13.4. Troponin T <0.010, ETOH <11, Lactate 1.2. COVID-[address] Brain showed NAD. She was given IV Rocephin and admitted to a medical bed. Ancef 2 grams IV q 8hrs (more content not included)... [facility] 06-06-2022 Note HNO ID: [id number] Author: Efren Bronson MD Service: Hospital Medicine Author Type: Physician Type: Progress Notes Filed: 06/07/2022 7:03 AM Note Text: DEPARTMENT OF HOSPITAL MEDICINE PROGRESS NOTE SERVICE DATE: 06/06/2022 SERVICE TIME: 5:40 PM Hospital Medicine/Primary Attending: Efren Bronson MD NIGHT AND WEEKEND COVERAGE: CANAAN COVERAGE: Nights: [phone], please page [facility] Hospitalist Night coverage pager [phone]. ASSESSMENT: Should read 2 reasons. She has some mild dementia and is questionable whether she is competent to live alone and for cellulitis right leg No chest pain or shortness of breath. Awaiting assessment by psychology Cellulitis improving small eschar over the 2 skin injuries of indeterminate etiology to most likely minor blunt trauma minor traction on the skin as there is no surrounding bruising PLAN Continue Ancef Await Dr. Tapia's assessment Magnesium level for the long QTC U wave that was very prominent Repeat EKG Reason for Admission: Right leg cellulitis with concern for patient's safety at home and potential cognitive impairment complicated by prior stroke Consultants: Dr. Lopes for infectious disease Dr. Tapia for psychology Practitioner Shell for wound care PROCEDURES: NONE Disposition: To be determined EK06/05/[address]-T changes with long QTC-QTC new change from 06/03/2022 and the long QTC seems to be from a prominent U wave not present on admission. The patient was not hypokalemic or any medication that commonly causes this. Magnesium level was 1.7 on admission getting repeat magnesium level ECHO: Recent Labs 06/03/22 1304 VPC2 49 VPO2C 32* VBE 5* BICARB 30* LACT 1.2 Recent Labs 06/03/22 1304 KWB 3.3* Recent Labs 06/06/22 05006/05/2232806/04/2255006/03/22 1144 TROPT -- -- -- <0.010 MCV 94.6 97.1 96.9 97.4 MCH 31.8 31.3 31.5 31.8 MPV 11.5 11.9 11.9 11.4 Recent Labs 06/06/22 05006/05/2232806/04/2255006/03/22 1144 WBC 16.16* 19.73* 20.65* 21.76* RBC 4.28 4.09 4.19 4.21 HB 13.6 12.8 13.2 13.4 HCT 40.5 39.7 40.6 41.0 PLT 167 173 179 174 MCV 94.6 97.1 96.9 97.4 MCH 31.8 31.3 31.5 31.8 MPV 11.5 11.9 11.9 11.4 ABSNEUT -- -- -- 5.24 NEUTP -- -- -- 24.1 LYMPHP -- -- -- 71.6 MONOP -- -- -- 3.1 Recent Labs 06/06/2250706/05/2232806/04/2255006/03/22 1144 GLUC 126* 117* 108* 172* NA 142 140 142 142 K 4.7 4.3 4.9 4.0 CHLOR 104 103 106* 104 CO2 28 28 27 30 CREAT 0.78 0.88 0.71 0.72 BUN 26* 25* 22* 25* ANION 10 9 9 8* CA 9.5 8.9 9.7 9.6 TPROT -- -- -- 6.3 ALB -- -- -- 3.9 TBILI -- -- -- 0.4 ALKPHOS -- -- -- 66 AST -- -- -- 15 ALT -- -- -- 8 Recent Labs 06/06/22 0508 06/05/22 0329 06/04/22 0551 GLUC 126* 117* 108* Recent Labs 06/03/22 1304 LACT 1.2 Recent Labs 06/06/22 0508 06/05/22 0329 06/04/22 0551 06/03/22 1144 BUN 26* 25* 22* 25* CREAT 0.78 0.88 0.71 0.72 CA 9.5 8.9 9.7 9.6 MG -- -- -- 1.7 Most recent labs Cellulitis of right lower leg POA: Yes CLL (chronic lymphocytic leukemia) (HCC) 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 Nichole), HTN, DJD, Glaucoma and Mild Cognitive Impairment, who presented to the ED on 06/03/22 with right lower leg redness and swelling. She reported a history of swelling in both of her legs, which was improved recently. She said she had had some redness in her left lower leg but this had resolved. She had 2 ulcers on her right lundy with worsening redness and tenderness. She was not sure how long this had been going on. She denied any fevers or chills or other symptoms. Family was with her in the ED and reported concerns of hoarding and the patient wandering outside to her neighbors. In the ED, she was afebrile. K 4.0, Cr 0.7, LFTs nl, WBC 21.8, Hgb 13.4. Troponin T <0.010, ETOH <11, Lactate 1.2. COVID-[address] Brain showed NAD. She was given IV Rocephin and admitted to a medical bed. Ancef 2 grams IV q 8hrs ordered. Blood and Urine Cultures were pending. ID and Wound Care Clinic consulted. Psychology was consulted. On 06/04, improvement in right leg erythema was noted. Principal Problem: Cellulitis of right lower leg Assessment AND Plan: Lower right leg erythema, warmth, tenderness 2 superficial 1cm ulcers anterior leg - no drainage Lactate 1.2 Cefazolin 2 grams IV q 8hrs Blood Cx x2 pending ID consult reviewed Wound Care Center consulted Active Problems: CLL (chronic lymphocytic leukemia) ([facility]) Assessment AND Plan: Follows with Dr. Nichole WBC 21.8 - 20.6 Consistent with recent labs On no treatment currently Essential hypertension Assessment AND Plan: (more content not included)... [facility] 06-05-2022 Note HNO ID: [id number] Author: Efren Bronson MD Service: Hospital Medicine Author Type: Physician Type: Progress Notes Filed: 06/05/2022 5:38 PM Note Text: DEPARTMENT OF HOSPITAL MEDICINE PROGRESS NOTE SERVICE DATE: 06/05/2022 SERVICE TIME: 5:23 PM Hospital Medicine/Primary Attending: Efren Bronson MD NIGHT AND WEEKEND COVERAGE: [place] COVERAGE: Nights: [phone], please page [place] [facility] Night coverage pager [phone]. ASSESSMENT No chest pain or shortness of breath Awaiting assessment by psychology PLAN Continue Ancef Reason for Admission: Right leg cellulitis with concern for patient's safety at home and potential cognitive impairment complicated by prior stroke Consultants: Dr. Lopes for infectious disease Dr. Tapia for psychology Practitioner Steiber for wound care PROCEDURES: NONE Disposition: To be determined EKG: ECHO: Recent Labs 06/03/22 1304 VPC2 49 VPO2C 32* VBE 5* BICARB 30* LACT 1.2 Recent Labs 06/03/22 1304 KWB 3.3* Recent Labs 06/05/22 0329 06/04/22 0551 06/03/22 1144 TROPT -- -- <0.010 MCV 97.1 96.9 97.4 MCH 31.3 31.5 31.8 MPV 11.9 11.9 11.4 Recent Labs 06/05/22 0329 06/04/22 0551 06/03/22 1144 WBC 19.73* 20.65* 21.76* RBC 4.09 4.19 4.21 HB 12.8 13.2 13.4 HCT 39.7 40.6 41.0 PLT 173 179 174 MCV 97.1 96.9 97.4 MCH 31.3 31.5 31.8 MPV 11.9 11.9 11.4 ABSNEUT -- -- 5.24 NEUTP -- -- 24.1 LYMPHP -- -- 71.6 MONOP -- -- 3.1 Recent Labs 06/05/2232806/04/22 0551 06/03/22 1144 GLUC 117* 108* 172* NA 140 142 142 K 4.3 4.9 4.0 CHLOR 103 106* 104 CO2 28 27 30 CREAT 0.88 0.71 0.72 BUN 25* 22* 25* ANION 9 9 8* CA 8.9 9.7 9.6 TPROT -- -- 6.3 ALB -- -- 3.9 TBILI -- -- 0.4 ALKPHOS -- -- 66 AST -- -- 15 ALT -- -- 8 Recent Labs 06/05/2232806/04/22 0551 06/03/22 1144 GLUC 117* 108* 172* Recent Labs 06/03/22 1304 LACT 1.2 Recent Labs 06/05/2232806/04/22 0551 06/03/22 1144 BUN 25* 22* 25* CREAT 0.88 0.71 0.72 CA 8.9 9.7 9.6 MG -- -- 1.7 Most recent labs Cellulitis of right lower leg POA: Yes CLL (chronic lymphocytic leukemia) (HCC) 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 Nichole), HTN, DJD, Glaucoma and Mild Cognitive Impairment, who presented to the ED on 06/03/22 with right lower leg redness and swelling. She reported a history of swelling in both of her legs, which was improved recently. She said she had had some redness in her left lower leg but this had resolved. She had 2 ulcers on her right lundy with worsening redness and tenderness. She was not sure how long this had been going on. She denied any fevers or chills or other symptoms. Family was with her in the ED and reported concerns of hoarding and the patient wandering outside to her neighbors. In the ED, she was afebrile. K 4.0, Cr 0.7, LFTs nl, WBC 21.8, Hgb 13.4. Troponin T <0.010, ETOH <11, Lactate 1.2. COVID-[address] Brain showed NAD. She was given IV Rocephin and admitted to a medical bed. Ancef 2 grams IV q 8hrs ordered. Blood and Urine Cultures were pending. ID and Wound Care Clinic consulted. Psychology was consulted. On 06/04, improvement in right leg erythema was noted. Principal Problem: Cellulitis of right lower leg Assessment AND Plan: Lower right leg erythema, warmth, tenderness 2 superficial 1cm ulcers anterior leg - no drainage Lactate 1.2 Cefazolin 2 grams IV q 8hrs Blood Cx x2 pending ID consult reviewed Wound Care Center consulted Active Problems: CLL (chronic lymphocytic leukemia) ([facility]) Assessment AND Plan: Follows with Dr. Nichole WBC 21.8 - 20.6 Consistent with recent labs On no treatment currently Essential hypertension Assessment AND Plan: BP controlled Continue Indapamide Monitor Right Shoulder Pain Assessment AND Plan: Chronic Right shoulder pain x1 year with significant decreased ROM XR Right Shoulder: severe DJD, evidence for chronic rotator cuff tear with superior migration of the humeral head Consider referral to Orthopedics Amnestic MCI (mild cognitive impairment with memory loss) Assessment AND Plan: Family concerned with patient at home Reported hoarding tendencies Wandering in neighborhood Worried about her being home Psychology consult pending Obesity, Class I, BMI 30-34.9 PHYSICAL EXAM: BP 142/53 Pulse 71 Temp (Src) 98.6 (Oral) Resp 17 Ht 4' 11 (1.50m) Wt 170 lb 6.7 oz (77.3kg) SpO2 94% BMI 34.40 kg/(m2). O2 Therapy: Room Air Physical Exam Performed GENERAL: Alert, no distress, cooperative NECK: No jugulovenous distention, Supple LUNGS: Adventitious sounds: Clear to auscultation Air movement: Respiratory Distr (more content not included)... [facility] 06-04-2022 Note HNO ID: [id number] Author: Naren Pérez Jr., MD Service: Hospital Medicine Author Type: Physician Type: Progress Notes Filed: 06/04/2022 4:06 PM Note Text: DEPARTMENT OF HOSPITAL MEDICINE PROGRESS NOTE SERVICE DATE: 06/04/2022 SERVICE TIME: 4:02 PM Hospital Medicine/Primary Attending: Naren Pérez Jr.,* NIGHT AND WEEKEND COVERAGE: [place] COVERAGE: Days: [phone], please page attending physician. Nights: [phone], please page [place] [facility] Night coverage pager [phone]. Subjective INTERVAL HPI: Patient notes her right leg redness has improved. Reports right shoulder pain and decreased ROM since a fall one year ago. Current Facility-Administered Medications Medication Dose Route Frequency NaCl 0.9% iv flush bag 20 mL INTRAVENOUS PRN indapamide 2.5 mg tab(s) (LOZOL) 2.5 mg ORAL DAILY latanoprost 0.005 % 1 Drop (XALATAN) 1 Drop BOTH EYES AT BEDTIME ceFAZolin iv piggyback 2 g in D5W (iso-osmotic) 100 mL (ANCEF) 2 g INTRAVENOUS q 8 HR ondansetron orally disintegrating 4 mg tab(s) (ZOFRAN ODT) 4 mg ORAL q 6 H PRN Or ondansetron (PF) 4 mg injection (ZOFRAN) 4 mg INTRAVENOUS q 6 H PRN acetaminophen 650 mg tab(s) (TYLENOL) 650 mg ORAL q 6 H PRN Objective PHYSICAL EXAM: BP 130/44 Pulse 66 Temp (Src) 97.5 (Oral) Resp 17 Ht 4' 11 (1.50m) Wt 170 lb 6.7 oz (77.3kg) SpO2 96% BMI 34.40 kg/(m2). O2 Therapy: Room Air Physical Exam Performed GENERAL: well appearing, in no acute distress EYES: PERRLA, EOMI, Conjunctiva clear MOUTH and THROAT: membranes moist NECK: supple HEART: regular rate and rhythm, S1 and S2, no murmur LUNGS: clear to auscultation; no rales or wheezes EXTREMITY: +2 edema bilat; venous stasis changes left lower leg RIGHT LOWER LEG: erythema and tenderness improved. 2 shallow 1 cm ulcers over proximal lundy. No drainage NEURO: Alert and Oriented x3; Nonfocal PSYCH: Appropriate mood; Cooperative RIGHT SHOULDER: non-tender but decreased ROM Lines, Drains, and Airways Line Duration Peripheral 06/03/22 Left Antecubital 20 Gauge 1 day DATA: Diagnostic tests reviewed for today's visit: Most recent labs Most recent imaging Assessment/Plan Problem List Cellulitis of right lower leg POA: Yes CLL (chronic lymphocytic leukemia) (HCC) POA: Yes Essential hypertension POA: Yes Amnestic MCI (mild cognitive impairment with memory loss) POA: Yes Chronic right shoulder pain POA: Yes Obesity, Class I, BMI 30-34.9 POA: Yes HOSPITAL COURSE: This is a 81 year old female, with a PMH of CLL (follows with Dr. Nichole), HTN, DJD, Glaucoma and Mild Cognitive Impairment, who presented to the ED on 06/03/22 with right lower leg redness and swelling. She reported a history of swelling in both of her legs, which was improved recently. She said she had had some redness in her left lower leg but this had resolved. She had 2 ulcers on her right lundy with worsening redness and tenderness. She was not sure how long this had been going on. She denied any fevers or chills or other symptoms. Family was with her in the ED and reported concerns of hoarding and the patient wandering outside to her neighbors. In the ED, she was afebrile. K 4.0, Cr 0.7, LFTs nl, WBC 21.8, Hgb 13.4. Troponin T <0.010, ETOH <11, Lactate 1.2. COVID-[address] Brain showed NAD. She was given IV Rocephin and admitted to a medical bed. Ancef 2 grams IV q 8hrs ordered. Blood and Urine Cultures were pending. ID and Wound Care Clinic consulted. Psychology was consulted. On 06/04, improvement in right leg erythema was noted. Principal Problem: Cellulitis of right lower leg Assessment AND Plan: Lower right leg erythema, warmth, tenderness 2 superficial 1cm ulcers anterior leg - no drainage Lactate 1.2 Cefazolin 2 grams IV q 8hrs Blood Cx x2 pending ID consult reviewed Wound Care Center consulted Active Problems: CLL (chronic lymphocytic leukemia) (HCC) Assessment AND Plan: Follows with Dr. Nichole WBC 21.8 - 20.6 Consistent with recent labs On no treatment currently Essential hypertension Assessment AND Plan: BP controlled Continue Indapamide Monitor Right Shoulder Pain Assessment AND Plan: Chronic Right shoulder pain x1 year with significant decreased ROM XR Right Shoulder: severe DJD, evidence for chronic rotator cuff tear with superior migration of the humeral head Consider referral to Orthopedics Amnestic MCI (mild cognitive impairment with memory loss) Assessment AND Plan: Family concerned with patient at home Reported hoarding tendencies Wandering in neighborhood Worried about her being home Psychology consult pending Obesity, Class I, BMI 30-34.9 Medication and Non-Pharmacologic VTE Prophylaxis/Anticoagulants 06/03/22 1715 activity - mobilize patient (or,oh) VTE Prophylaxis: VTE prophylaxis appropriate Disposition: To be determined Plan of care discussed with Patient and RN SIGNATURE: Naren Grimm (more content not included)... [facility] documented as of this encounter (statuses as of 06/14/2022) [facility]01-14-2023 History of Past illness Narrative* Problem Noted Date Resolved Date Cellulitis of right lower leg 06/03/2022 Altered mental state 07/30/2020 09/01/2020 Acute metabolic encephalopathy 11/03/2019 0 09/01/2020 Aftercare 11/01/2019 11/10/2019 Falls frequently 10/28/2019 09/01/2020 Last Assessment & Plan: Frequent falls at home w/slow cognitive decline and concerns re: patient's hygiene and safety at home per POA/family adm labs with stable electrolytes, normal H/H, minimal increase in BUN/creatinine-s/o dehydration likely w/ dec po intake negative troponin /normal EKG -acs r/o no lateralizing signs or neuro deficit or signs of trauma on exam. NIHSS -0 Admission cth neg for ac findings Received IV HYDRATION w/ resolution of lizbeth/dehydration Labs with CBC at baseline wrt CLL / BMP and LFTs normalised Seen by PT -rec snf d/ w pt poa/family -agreeable for placement to [place]- being dced today Klebsiella sepsis 10/20/2019 09/01/2020 Acute pyelonephritis 10/15/2019 09/01/2020 Falls 10/15/2019 09/01/2020 Dehydration 01/04/2018 01/04/2018 UTI (urinary tract infection) 12/31/2017 documented as of this encounter (statuses as of 06/20/2022) [facility]01-14[facility] History of Past illness Narrative* Problem Noted Date Resolved Date Cellulitis of right lower leg 06/03/2022 Altered mental state 07/30/2020 09/01/2020 Acute metabolic encephalopathy 11/03/2019 0 09/01/2020 Aftercare 11/01/2019 11/10/2019 Falls frequently 10/28/2019 09/01/2020 Last Assessment & Plan: Frequent falls at home w/slow cognitive decline and concerns re: patient's hygiene and safety at home per POA/family adm labs with stable electrolytes, normal H/H, minimal increase in BUN/creatinine-s/o dehydration likely w/ dec po intake negative troponin /normal EKG -acs r/o no lateralizing signs or neuro deficit or signs of trauma on exam. NIHSS -0 Admission cth neg for ac findings Received IV HYDRATION w/ resolution of lizbeth/dehydration Labs with CBC at baseline wrt CLL / BMP and LFTs normalised Seen by PT -rec snf d/ w pt poa/family -agreeable for placement to [place] [facility]- [facility] fin[facility] centerd today Klebsiella sepsis 10/20/2019 09/01/2020 Acute pyelonephritis 10/15/2019 09/01/2020 Falls 10/15/2019 09/01/2020 Dehydration 01/04/2018 01/04/2018 UTI (urinary tract infection) 12/31/2017 documented as of this encounter (statuses as of 06/26/2022) [facility] History of Past illness Narrative* Problem Noted Date Resolved Date Cellulitis of right lower leg 06/03/2022 Altered mental state 07/30/2020 09/01/2020 Acute metabolic encephalopathy 11/03/2019 0 09/01/2020 Aftercare 11/01/2019 11/10/2019 Falls frequently 10/28/2019 09/01/2020 Last Assessment & Plan: Frequent falls at home w/slow cognitive decline and concerns re: patient's hygiene and safety at home per POA/family adm labs with stable electrolytes, normal H/H, minimal increase in BUN/creatinine-s/o dehydration likely w/ dec po intake negative troponin /normal EKG -acs r/o no lateralizing signs or neuro deficit or signs of trauma on exam. NIHSS -0 Admission cth neg for ac findings Received IV HYDRATION w/ resolution of lizbeth/dehydration Labs with CBC at baseline wrt CLL / BMP and LFTs normalised Seen by PT -rec snf d/ w pt poa/family -agreeable for placement to [place]- being dced today Klebsiella sepsis 10/20/2019 09/01/2020 Acute pyelonephritis 10/15/2019 09/01/2020 Falls 10/15/2019 09/01/2020 Dehydration 01/04/2018 01/04/2018 UTI (urinary tract infection) 12/31/2017 documented as of this encounter (statuses as of 07/24/2022) [facility] History of Past illness Narrative* Problem Noted Date Diagnosed Date Resolved Date Cellulitis of right lower leg 06/03/2022 06/11/2022 Altered mental state 07/30/2020 021 Acute metabolic encephalopathy 11/03/2019 09/01/2020 Aftercare 11/01/2019 11/10/2019 Falls frequently 10/28/2019 09/01/2020 Last Assessment & Plan: Frequent falls at home w/slow cognitive decline and concerns re: patient's hygiene and safety at home per POA/family adm labs with stable electrolytes, normal H/H, minimal increase in BUN/creatinine-s/o dehydration likely w/ dec po intake negative troponin /normal EKG -acs r/o no lateralizing signs or neuro deficit or signs of trauma on exam. NIHSS -0 Admission cth neg for ac findings Received IV HYDRATION w/ resolution of lizbeth/dehydration Labs with CBC at baseline wrt CLL / BMP and LFTs normalised Seen by PT -rec snf d/ w pt poa/family -agreeable for placement to [place]- being dced today Klebsiella sepsis 10/20/2019 09/01/2020 Acute pyelonephritis 10/15/2019 021 Falls 10/15/2019 09/01/2020 Dehydration 01/04/2018 01/04/2018 UTI (urinary tract infection) 12/31/2017 01/18/2018 documented as of this encounter (statuses as of 01/26/2023) [facility] History of Present illness Narrative* Ori Nichole MD - 01/16/2022 4:49 PM EDT The patient is a 81-year-old female with a diagnosis of CLL. Patient being observed. We have been following her blood counts over the last 8 months. She presented with a white count in the ranges of 20,000. Her hemoglobin and platelets are unremarkable. She remained asymptomatic. We decided to observe. Clinically doing relatively well without any acute issues. 05/30/21 07/18/21 01/16/22 WBC 20.22 (A) 27.26 (A) 24.67 (A) RBC 4.50 4.50 4.55 Hemoglobin 14.5 14.6 14.7 Hematocrit 45.5 43.2 43.8 MCV 101.1 (A) 96.0 96.3 MCH 32.2 32.4 32.3 MCHC 31.9 33.8 33.6 RDW-CV 12.4 12.2 12.7 Platelet Count 175 161 187 MPV 11.9 11.0 11.4 Neut% 21.0 16.0 Lymph% 74.0 83.0 Platte% 3.0 1.0 Eosin% 2.0 0.0 Baso% 0.0 0.0 Abs Neut (ANC) 4.25 3.95 Abs Lymph 14.96 (A) 20.48 (A) Abs Platte 0.61 0.25 Review Of Systems: General: Denies any fatigue. No fever, chills, night sweats, weight loss, headaches or loss of appetite. Stamina intact. HEENT/Neck: No hearing/vision changes; no pain, masses, or swelling. No evidence of sores in the mouth. Respiratory: No cough, productive sputum, hemoptysis, chest pain, shortness of breath or wheezing. Cardiovascular: No palpatations, chest pain,shotness or breath, exertional dyspnea or leg swelling. Gastrointestinal: No nausea, vomiting, dysphagia, abdominal pain,melana or hematochezia. No diahreaorconstipation. No change in the bowel habbits. Genitourinary: No dysuria, nocturia, frequency, urgency, hematuria or incontinence . Musculoskeletal: No joint or pain bone pain: No limitation of motion. No probles with the gait. Neurological: No sensory or motor abnormalities; no headaches or dizziness. Dermatologic: No rash, skin lesions or itching. Psychiatric: No sleep disturbances, mood disorders, depression, etc. Hematologic: No bleeding, bruising or echymisis. Lymphatic System: No new lymph gland enlargement or and new lumps of bumps in the body. Endocrine: No heat or cold intolerance, diabetes or other abnormalities The rest of systems reviewed and essentially unremarkable. On examination:BP 147/83 Pulse (!) 51 Temp 36.6 C (97.9 F) (Temporal) Wt 74.6 kg (164 lb 8 oz) SpO2 (!) 50% BMI 32.13 kg/m The patient was awake alert oriented. Didn't appear to be in acute distress. HEENT: No pallor, icterus, cyanosis, oral cavity shows no evidence of mucositis, lesions, or ulcers. Trachea midline. No JVD, carotid bruit, thyromegaly, cervical lymphadenopathy or supra-infraclavicular lymphadenopathy. CVS: S1-S2 heard no S3 no murmurs or pericardial rub. No peripheral edema. Lungs: Chest wall nontender. No dullness to percussion. Clear to auscultation bilaterally. No rhonchi or rales noted. No pleural rub or at it sounds noted. Abdomen: Normal inspection, nondistended no dilated veins. Soft nontender no organomegaly. No palpable masses noted. Hem/ Lymph: No peripheral lymphadenopathy or any palpable masses. Neuro Exam: High mental functions were normal. Cranial nerves II through XII are normal. No gross abnormality noted on sensory or motor system exam. Musculoskeletal: No joint deformities noted. No evidence of synovitis, swelling or tenderness in the joints or bursitis. Skin: No evidence to suggest any bruising, ecchymosis, petechiae and symptoms of hand-foot syndrome. Assesment 1. 80-year-old female with CLL. The white count is more or less stable. She is asymptomatic. Continue observation. Repeat blood work and follow-up in 6 months. Ori Nichole MD [place] [id number] History of Present illness Narrative* Randy Martinez MD - 12/05/2021 10:52 AM EDT ESTABLISHED PATIENT Idris Fox is a 80 year old female presenting for F/U 6 Month. HISTORY OF PRESENT ILLNESS Patient is here for follow up. Hypertension Follow up Medication Adherence: no missed doses and took medications this morning Home monitoring: no Heart palpitations: no Chest pain: no Last 3 Encounter BP Readings: Date: BP: 12/05/2021 130/60 07/18/2021 135/75 05/30/2021 150/60 Has CLL. Is monitoring WBC levels. Rigth shoulder occasionally causing pain. Fell but never went to the ER. About the same as last time. Declines covid vaccine for now. Waiting for fall booster. Patient with rash on lower legs. Chronic swelling in legs for 30+ years. One area that can sometimes be sore. Uses Vicks which helps. Last 10 Encounter Wt Readings: Date: Wt: 12/05/2021 77.6 kg (171 lb) 07/18/2021 77.5 kg (170 lb 14.4 oz) 05/30/2021 78 kg (172 lb) 09/01/2020 78 kg (172 lb) 06/15/2020 74.8 kg (165 lb) 05/24/2020 76.7 kg (169 lb) 12/11/2019 72.6 kg (160 lb) 11/17/2019 78.5 kg (173 lb) 11/06/2019 72.6 kg (160 lb) 10/31/2019 76.1 kg (167 lb 12.3 oz) ASSESSMENT: (I87.2) Chronic venous stasis dermatitis of both lower extremities (primary encounter diagnosis) (C91.10) CLL (chronic lymphocytic leukemia) (HCC) (I10) Essential hypertension PLAN: Discussed elevating legs. Continue using moisturizers Continue follow up with for CLL BP controlled. Continue current meds. 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 PAST SURGICAL HISTORY Procedure Laterality Date FSTLJ SCLERA GLAUCOMA TRABECULECT AB EXTERNO ou IRIDOTOMY/IRIDECTOMY BY LASER Lpi ou REVJ/RPR OPRATIVE WOUND ANTERIOR SEGMENT 09/14/2010 Revision Of Trabeculectomy OS TONSILLECTOMY HX XCAPSL CTRC RMVL INSJ IO LENS PROSTH W/O ECP 08/21/1994 OD XCAPSL CTRC RMVL INSJ IO LENS PROSTH W/O ECP 12/26/2004 OS Social History Tobacco Use Smoking status: Never Smoker Smokeless tobacco: Never Used Substance Use Topics Alcohol use: No Drug use: No Allergies: ALLERGIES Allergen Reactions Timolol Other: See Comments sore throat, heart racing; throat swelling Medications: latanoprost (XALATAN) 0.005 % ophthalmic solution indapamide (LOZOL) 2.5 mg tablet Take 1 tablet by mouth once daily. acetaminophen (TYLENOL) 325 mg tablet Take 2 tablets by mouth every 6 hours as needed. REVIEW OF SYSTEMS GENERAL: No weight loss, malaise or fevers. RESPIRATORY: Negative for cough, hemoptysis, wheezing or shortness of breath. CARDIOVASCULAR: Negative for chest pain, leg swelling or palpitations. All other systems reviewed and negative other than HPI. PHYSICAL EXAM BP 130/60 Pulse (!) 55 Temp 36.6 C (97.8 F) Resp 16 Ht 152.4 cm (5') Wt 77.6 kg (171 lb) SpO2 97% BMI 33.40 kg/m General: Well developed, well nourished, in no acute distress. Head: Normocephalic, atraumatic. Neck: Supple. Eyes: Normal conjunctiva, no scleral icterus. Lungs: Clear to auscultation bilaterally, no rubs, no wheezing. Cardiac: Regular rate and rhythm. No murmurs, gallops, or rubs. Extremities: Mild swelling. Chronic venous stasis dermatitis Randy Martinez MD * Lorena Gold - 12/05/2021 10:46 AM EDT BP CONTROLLED (<130/80) Never done SHINGRIX VACCINE(1 of 2) Never done FECAL OCCULT BLOOD Never done ADVANCE DIRECTIVE DISCUSSION Never done COVID-19 VACCINE(4 - Booster) due on 08/28/2021 [facility] Instructions* Patient Instructions* Lorena Gold - 12/05/2021 10:47 AM EDT [facility] BUILD[facility] LAB TEST INFORMATION [facility] BUILDING LAB HOURS: Lab is open: 7:30am to 5:00pm M - Th, 7:30am to 4:00pm onFri and 8am -12pm on Sat. The lab is located in [facility] on the first floor. There is a registration window at the lab, available 7 am to 3 pm Sunday. If registration is unavailable at the lab, you may register at the patient registration office near the front lobby of the hospital. SCHEDULING A LAB APPOINTMENT: Laboratory appointments are recommended.Walk ins are still accepted. Call [phone] or schedule via [employer] scheduling ticket. ROUTINE LAB ORDERS 60 days after they are entered. If your lab orders , you may be required to wait in the lab while they are reinstated FUTURE ORDERS are lab tests to be completed on the EXPECTED date. These orders 60 days afterthe expected date. STANDING ORDERS are recurring orders with an expiration date. The interval will indicate how often the test should be completed. CT / MRI / IVP If you have lab tests ordered for one of these radiology exams, please complete the blood work at least one day prior to the scheduled exam. PRESCRIPTION REFILL REQUESTS Request prescription refills through your [employer] account or contact your Pharmacy. My Chart Schedule My Appointment enables you to view your established primary care provider's open schedule and book an appointment online in real-time. This feature is available in internal medicine, family medicine, or pediatrics at any of our [facility] locations and main campus. documented in this encounterC[facility]03[facility]26-[facility]22 History of Present illness Narrative* Ori Nichole MD - 08/13/2021 2:35 PM EDT The patient is a 80-year-old female with a diagnosis of CLL. The patient currently being observed. White count at the time of diagnosis was about 19,000 as of a year ago. Gradually has gone up. In May 2021 it was 20,000. Now up to 27,000. The hemoglobin and platelets are unchanged. Patient remains asymptomatic. Review Of Systems: General: Denies any fatigue. No fever, chills, night sweats, weight loss, headaches or loss of appetite. Stamina intact. HEENT/Neck: No hearing/vision changes; no pain, masses, or swelling. No evidence of sores in the mouth. Respiratory: No cough, productive sputum, hemoptysis, chest pain, shortness of breath or wheezing. Cardiovascular: No palpatations, chest pain,shotness or breath, exertional dyspnea or leg swelling. Gastrointestinal: No nausea, vomiting, dysphagia, abdominal pain,melana or hematochezia. No diahreaorconstipation. No change in the bowel habbits. Genitourinary: No dysuria, nocturia, frequency, urgency, hematuria or incontinence. Musculoskeletal: No joint or pain bone pain: No limitation of motion. No problems with the gait. Neurological: No sensory or motor abnormalities; no headaches or dizziness. Dermatologic: No rash, skin lesions or itching. Psychiatric: No sleep disturbances, mood disorders, depression, etc. Hematologic: No bleeding, bruising or echymisis. Lymphatic System: No new lymph gland enlargement or and new lumps of bumps in the body. Endocrine: No heat or cold intolerance, diabetes or other abnormalities The rest of systems reviewed and essentially unremarkable. Physical Examination: There were no vitals taken for this visit. The patient was awake alert oriented. Didn't appear to be in acute distress. HEENT: No pallor, icterus, cyanosis, oral cavity shows no evidence of mucositis, lesions, or ulcers. Trachea midline. No JVD, carotid bruit, thyromegaly, cervical lymphadenopathy or supra-infraclavicular lymphadenopathy. CVS: S1-S2 heard no S3 no murmurs or pericardial rub. No peripheral edema. Lungs: Chest wall nontender. No dullness to percussion. Clear to auscultation bilaterally. No rhonchi or rales noted. No pleural rub or at it sounds noted. Abdomen: Normal inspection, nondistended no dilated veins. Soft nontender no organomegaly. No palpable masses noted. Hem/ Lymph: No peripheral lymphadenopathy or any palpable masses. Neuro Exam: High mental functions were normal. Cranial nerves II through XII are normal. No gross abnormality noted on sensory or motor system exam. Musculoskeletal: No joint deformities noted. No evidence of synovitis, swelling or tenderness in the joints or bursitis. Skin: No evidence to suggest any bruising, ecchymosis, petechiae and symptoms of hand-foot syndrome. Labs: 05/24/20 05/30/21 07/18/21 WBC 19.93 (A) 20.22 (A) 27.26 (A) RBC 4.44 4.50 4.50 Hemoglobin 14.2 14.5 14.6 Hematocrit 43.4 45.5 43.2 MCV 97.7 101.1 (A) 96.0 MCH 32.0 32.2 32.4 MCHC 32.7 31.9 33.8 RDW-CV 12.8 12.4 12.2 Platelet Count 179 175 161 MPV 11.3 11.9 11.0 Neut% 20.0 21.0 Lymph% 75.0 74.0 Platte% 5.0 3.0 Eosin% 0.0 2.0 Baso% 0.0 0.0 Abs Neut (ANC) 3.99 4.25 Abs Lymph 14.95 (A) 14.96 (A) Abs Platte 1.00 (A) 0.61 Abs Eosin 0.00 0.40 Abs Baso 0.00 0.00 Assessment: 1. 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 White count of 27,000. Continue to observe the patient. Repeat blood work and follow-up in 4 months. We will consider therapy if the white count approaches around 50,000. Ori Nichole MD documented in this encounterC[facility]03-12-[facility] History of Past illness Narrative* Problem Noted Date Resolved Date Altered mental state 07/30/2020 09/01/2020 Acute metabolic encephalopathy 11/03/2019 0 09/01/2020 Aftercare 11/01/2019 11/10/2019 Falls frequently 10/28/2019 09/01/2020 Last Assessment & Plan: Frequent falls at home w/slow cognitive decline and concerns re: patient's hygiene and safety at home per POA/family adm labs with stable electrolytes, normal H/H, minimal increase in BUN/creatinine-s/o dehydration likely w/ dec po intake negative troponin /normal EKG -acs r/o no lateralizing signs or neuro deficit or signs of trauma on exam. NIHSS -0 Admission cth neg for ac findings Received IV HYDRATION w/ resolution of lizbeth/dehydration Labs with CBC at baseline wrt CLL / BMP and LFTs normalised Seen by PT -rec snf d/ w pt poa/family -agreeable for placement to [place]- being dced today Klebsiella sepsis 10/20/2019 09/01/2020 Acute pyelonephritis 10/15/2019 09/01/2020 Falls 10/15/2019 09/01/2020 Dehydration 01/04/2018 01/04/2018 UTI (urinary tract infection) 12/31/2017 documented as of this encounter (statuses as of 08/13/2021) [facility] History of Past illness Narrative* Problem Noted Date Resolved Date Altered mental state 07/30/2020 09/01/2020 Acute metabolic encephalopathy 11/03/2019 0 09/01/2020 Aftercare 11/01/2019 11/10/2019 Falls frequently 10/28/2019 09/01/2020 Last Assessment & Plan: Frequent falls at home w/slow cognitive decline and concerns re: patient's hygiene and safety at home per POA/family adm labs with stable electrolytes, normal H/H, minimal increase in BUN/creatinine-s/o dehydration likely w/ dec po intake negative troponin /normal EKG -acs r/o no lateralizing signs or neuro deficit or signs of trauma on exam. NIHSS -0 Admission cth neg for ac findings Received IV HYDRATION w/ resolution of lizbeth/dehydration Labs with CBC at baseline wrt CLL / BMP and LFTs normalised Seen by PT -rec snf d/ w pt poa/family -agreeable for placement to [place]- being dced today Klebsiella sepsis 10/20/2019 09/01/2020 Acute pyelonephritis 10/15/2019 09/01/2020 Falls 10/15/2019 09/01/2020 Dehydration 01/04/2018 01/04/2018 UTI (urinary tract infection) 12/31/2017 documented as of this encounter (statuses as of 12/05/2021) [facility] History of Past illness Narrative* Problem Noted Date Resolved Date Altered mental state 07/30/2020 09/01/2020 Acute metabolic encephalopathy 11/03/2019 0 09/01/2020 Aftercare 11/01/2019 11/10/2019 Falls frequently 10/28/2019 09/01/2020 Last Assessment & Plan: Frequent falls at home w/slow cognitive decline and concerns re: patient's hygiene and safety at home per POA/family adm labs with stable electrolytes, normal H/H, minimal increase in BUN/creatinine-s/o dehydration likely w/ dec po intake negative troponin /normal EKG -acs r/o no lateralizing signs or neuro deficit or signs of trauma on exam. NIHSS -0 Admission cth neg for ac findings Received IV HYDRATION w/ resolution of lizbeth/dehydration Labs with CBC at baseline wrt CLL / BMP and LFTs normalised Seen by PT -rec snf d/ w pt poa/family -agreeable for placement to [place]- [facility] today Klebsiella sepsis 10/20/2019 09/01/2020 Acute pyelonephritis 10/15/2019 09/01/2020 Falls 10/15/2019 09/01/2020 Dehydration 01/04/2018 01/04/2018 UTI (urinary tract infection) 12/31/2017 documented as of this encounter (statuses as of 01/16/2022) [facility] NoteHNO ID: [id number] Author: Angel Almonte Jr. Service: ? Author Type: Physician Type: Progress Notes Filed: 12/11/2019 2:08 PM Note Text: ESTABLISHED PATIENT OFFICE VISIT HPI Idris Fox is a 78 year old female who presents recently seen on consult for L pyelonephritis. Concern on ct scan for L renal mass. Serial ct's done showed improving left lesion indicative of L lobar nephronia alternatively. Doing well now. On abx till . 12/11/19 - repeat renal US shows area is septated L cyst with some scarring around it. LAB: Creatinine Date Value Ref Range Status 11/17/2019 0.90 0.58 - 0.96 mg/dL Final No results found for: PSA Glucose, Urine (mg/dL) Date Value 10/29/2019 Negative Bilirubin, Urine (no units) Date Value 10/29/2019 Negative Ketones, Urine (no units) Date Value 10/29/2019 Negative Specific [place], Ur (no units) Date Value 10/29/2019 1.025 Hemoglobin/Blood,Ur ( ) Date Value 10/29/2019 Negative pH, Urine (no units) Date Value 10/29/2019 6.0 Protein, Urine (no units) Date Value 10/29/2019 Negative Nitrites (no units) Date Value 10/29/2019 Negative WBC, Urine (/HPF) Date Value 10/15/2019 >25 MEDICATIONS: indapamide (LOZOL) 1.25 mg tablet Take 2 tablets by mouth once daily. acetaminophen (TYLENOL) 325 mg tablet Take 2 tablets by mouth every 6 hours as needed. REVIEW OF SYSTEMS Review of Systems Constitutional: Negative. Respiratory: Negative. Cardiovascular: Negative. Gastrointestinal: Negative. Genitourinary: Negative. Skin: Negative. Neurological: Negative. Psychiatric/Behavioral: Negative. HISTORIES PAST MEDICAL HISTORY Diagnosis Date - Arthritis knee pain - Head trauma 05/20/2010 - Leaking of conjunctival drainage bleb 05/2010 OS - POAG (primary open-angle glaucoma) - Pseudophakia of both eyes FAMILY HISTORY Problem Relation Age of Onset - Diabetes Mother - Macular Degen Sister - Diabetes Brother - Hypertension Brother - Colon Cancer Brother - Diabetes Maternal Grandmother - Diabetes Paternal Grandmother - Blindness Other gr gr grmo - Cancer Brother Pancreatic SOCIAL HISTORY Social History Tobacco Use - Smoking status: Never Smoker - Smokeless tobacco: Never Used Substance Use Topics - Alcohol use: No - Drug use: No PHYSICAL EXAMINATION General appearance: Well appearing, alert, in no acute distress and well-hydrated, well nourished Skin: Skin color, texture, turgor normal, no suspicious rashes or lesions Respiratory:+ effort Cardiovascular: Not examined GI: Normal abdominal exam, Abdomen soft, non-tender. No masses, organomegaly Musculoskeletal: Negative Neuro: Negative Genitourinary: not examined Impression: (N28.9) Renal lesion (primary encounter diagnosis) Plan: 6 months Renal US prior If stable then prn Angel Almonte Jr, MD 12/11/2019[facility]06-18-2020 NoteHNO ID: [id number] Author: Angel Almonte Jr. Service: ? Author Type: Physician Type: Progress Notes Filed: 11/06/2019 11:19 AM Note Text: ESTABLISHED PATIENT OFFICE VISIT HPI Idris Fox is a 78 year old female who presents recently seen on consult for L pyelonephritis. Concern on ct scan for L renal mass. Serial ct's done showed improving left lesion indicative of L lobar nephronia alternatively. Doing well now. On abx till . LAB: Creatinine Date Value Ref Range Status 11/01/2019 0.93 0.58 - 0.96 mg/dL Final No results found for: PSA Glucose, Urine (mg/dL) Date Value 10/29/2019 Negative Bilirubin, Urine (no units) Date Value 10/29/2019 Negative Ketones, Urine (no units) Date Value 10/29/2019 Negative Specific [place], Ur (no units) Date Value 10/29/2019 1.025 Hemoglobin/Blood,Ur ( ) Date Value 10/29/2019 Negative pH, Urine (no units) Date Value 10/29/2019 6.0 Protein, Urine (no units) Date Value 10/29/2019 Negative Nitrites (no units) Date Value 10/29/2019 Negative WBC, Urine (/HPF) Date Value 10/15/2019 >25 MEDICATIONS: indapamide (LOZOL) 1.25 mg tablet Take 2 tablets by mouth once daily. acetaminophen (TYLENOL) 325 mg tablet Take 2 tablets by mouth every 6 hours as needed. amoxicillin (POLYMOX, AMOXIL) 500 mg capsule Take 1 capsule by mouth every 8 hours for 14 days. docusate sodium (COLACE) 100 mg capsule Take 1 capsule by mouth twice daily as needed. sulfamethoxazole-trimethoprim (BACTRIM DS,SEPTRA DS) 800-160 mg per tablet Take 1 tablet by mouth every 12 hours for 14 days. REVIEW OF SYSTEMS Review of Systems Constitutional: Negative. Respiratory: Negative. Cardiovascular: Negative. Gastrointestinal: Negative. Genitourinary: Negative. Skin: Negative. Neurological: Negative. Psychiatric/Behavioral: Negative. HISTORIES PAST MEDICAL HISTORY Diagnosis Date - Arthritis knee pain - Head trauma 05/20/2010 - Leaking of conjunctival drainage bleb 05/2010 OS - POAG (primary open-angle glaucoma) - Pseudophakia of both eyes FAMILY HISTORY Problem Relation Age of Onset - Diabetes Mother - Macular Degen Sister - Diabetes Brother - Hypertension Brother - Colon Cancer Brother - Diabetes Maternal Grandmother - Diabetes Paternal Grandmother - Blindness Other gr gr grmo - Cancer Brother Pancreatic SOCIAL HISTORY Social History Tobacco Use - Smoking status: Never Smoker - Smokeless tobacco: Never Used Substance Use Topics - Alcohol use: No - Drug use: No PHYSICAL EXAMINATION General appearance: Well appearing, alert, in no acute distress and well-hydrated, well nourished Skin: Skin color, texture, turgor normal, no suspicious rashes or lesions Respiratory:+ effort Cardiovascular: Not examined GI: Normal abdominal exam, Abdomen soft, non-tender. No masses, organomegaly Musculoskeletal: Negative Neuro: Negative Genitourinary: not examined Impression: (N12) Pyelonephritis (primary encounter diagnosis) Plan: 1 month Renal US prior Angel Almonte Jr, MD [facility] Diagnosis CLL (chronic lymphocytic leukemia) (HCC)- Primary Chronic lymphoid leukemia, without mention of having achieved remission [facility] Diagnosis Chronic venous stasis dermatitis of both lower extremities- Primary CLL (chronic lymphocytic leukemia) (HCC) Chronic lymphoid leukemia, without mention of having achieved remission Essential hypertension Unspecified essential hypertension [facility] Diagnosis CLL (chronic lymphocytic leukemia) (HCC)- Primary Chronic lymphoid leukemia, without mention of having achieved remission [facility] Diagnosis Generalized weakness- Primary Other malaise and fatigue Moderate dementia without behavioral disturbance, psychotic disturbance, mood disturbance, or anxiety, unspecified dementia type Essential hypertension Unspecified essential hypertension [facility] Diagnosis Generalized weakness- Primary Other malaise and fatigue Moderate dementia without behavioral disturbance, psychotic disturbance, mood disturbance, or anxiety, unspecified dementia type Essential hypertension Unspecified essential hypertension Leukocytosis, unspecified type CLL (chronic lymphocytic leukemia) (HCC) Chronic lymphoid leukemia, without mention of having achieved remission [facility] Diagnosis Generalized weakness- Primary Other malaise and fatigue Moderate dementia without behavioral disturbance, psychotic disturbance, mood disturbance, or anxiety, unspecified dementia type Essential hypertension Unspecified essential hypertension Leukocytosis, unspecified type CLL (chronic lymphocytic leukemia) (HCC) Chronic lymphoid leukemia, without mention of having achieved remission Localized edema Edema [facility] Diagnosis CLL (chronic lymphocytic leukemia) (HCC)- Primary Chronic lymphoid leukemia, without mention of having achieved remission [facility] Diagnosis CLL (chronic lymphocytic leukemia) (HCC)- Primary Chronic lymphoid leukemia, without mention of having achieved remission documented in this encounter [facility] Summary Purpose Family History No Family History Records FoundNo Family History Records FoundNo Family History Records FoundNo Family History Records Found Advance Directives No Advanced Directives Records FoundDocuments on File Type Date Recorded 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 Advance Directive(s) Advance Directive(s) 04/20/2020 11:58 AM Advance Directive(s) 11/01/2019 7:23 PM Advance Directive(s) 10/28/2019 9:54 AM Advance Directive(s) 10/16/2019 1:20 PM Advance Directive(s) 10/15/2019 1:51 PM Advance Directive(s) 11/15/2018 10:04 AM Advance Directive(s) 01/04/2018 9:41 AM Documents on File Type Date Recorded 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 Source Comments (unrecognize d section and content) In the event this informatio n is protected by the Federal Confidentiality of Alcohol and Drug Abuse Patient Records regulations: The Federal rules restrict any use of the information to criminally investigate or prosecute any alcohol or drug abuse patient.[facility] the event this information is protected by the Federal Confidentiality of Alcohol and Drug Abuse Patient Records regulations: The Federal rules restrict any use of the information to criminally investigate or prosecute any alcohol or drug abuse patient.[facility] Hospital[facility] the event this information is protected by the Federal Confidentiality of Alcohol and Drug Abuse Patient Records regulations: The Federal rules restrict any use of the information to criminally investigate or prosecute any alcohol or drug abuse patient.[facility] Hospital[facility] the event this information is protected by the Federal Confidentiality of Alcohol and Drug Abuse Patient Records regulations: The Federal rules restrict any use of the information to criminally investigate or prosecute any alcohol or drug abuse patient.[facility] Hospital[facility] the event this information is protected by the Federal Confidentiality of Alcohol and Drug Abuse Patient Records regulations: The Federal rules restrict any use of the information to criminally investigate or prosecute any alcohol or drug abuse patient.[facility] Hospital[facility] the event this information is protected by the Federal Confidentiality of Alcohol and Drug Abuse Patient Records regulations: The Federal rules restrict any use of the information to criminally investigate or prosecute any alcohol or drug abuse patient.[facility] Hospital[facility] the event this information is protected by the Federal Confidentiality of Alcohol and Drug Abuse Patient Records regulations: The Federal rules restrict any use of the information to criminally investigate or prosecute any alcohol or drug abuse patient.[facility] Hospital[facility] the event this information is protected by the Federal Confidentiality of Alcohol and Drug Abuse Patient Records regulations: The Federal rules restrict any use of the information to criminally investigate or prosecute any alcohol or drug abuse patient.[facility] Care Teams (unrecognized sec tion and content) Fitness Professional Relationship Specialty Start Date End Date Randy Martinez MD [address] [place] [address] PCP - General Internal Medicine 12/16/18 [place], [place] [facility] [place] [address] 02/21/19 Fitness Professional Relationship Specialty Start Date End Date Simon, Randy Menchaca MD [address] [place] [address] PCP - General Internal Medicine 12/16/18 [place], [place] [facility] [place] [address] 02/21/19 Fitness Professional Relationship Specialty Start Date End Date Simon, Randy Menchaca MD [address] [place] [address] PCP - General Internal Medicine 12/16/18 [place], [place] [facility] [place] [address] 02/21/19 Fitness Professional Relationship Specialty Start Date End Date Simon, Randy Menchaca MD [address] [place] [address] PCP - General Internal Medicine 12/16/18 [place] [id number] [place] [address] 02/21/19 Fitness Professional Relationship Specialty Start Date End Date SimonRandy jensen MD [address] [place] [address] PCP - General Internal Medicine 12/16/18 [facility] [place] [address] 02/21/19 Fitness Professional Relationship Specialty Start Date End Date SimonRandy jensen MD [address] [place] [address] PCP - General Internal Medicine 12/16/18 [facility] [address] [facility] [address] 02/21/19 Reason for Visit (unrecogniz ed section and content) Reason Comments Follow Up labs Specialty Diagnoses / Procedures Referred By Malcolm t Referred To Contact Hematology/Oncology / HEMATOLOGY/ONCOLOGY Diagnoses Chronic lymphocytic leukemia of B-cell type not having achieved remission 6 month follow up Procedures OFFICE/OUTPATIENT ESTABLISHED HIGH MDM 40-54 MIN OFFICE/OUTPATIENT ESTABLISHED MOD MDM 30-39 MIN OFFICE/OUTPATIENT ESTABLISHED LOW MDM 20-29 MIN OFFICE/OUTPATIENT ESTABLISHED SF MDM 10-19 [place] [id number] [place] [address] [place] [address] [place] [address] Referral ID Status Reason Start Date Expiration Date Visits Re quested Visits Authorized [id number] Closed 01/05/2022 05/20/2022 1 1 Reason Comments Follow Up FOR RECORDS PERTAINING TO PATIENTS WHO ARE OR HAVE BEEN ENROLLED IN A CHEMICAL DEPENDENCY/SUBSTANCEABUSE PROGRAM, SOME INFORMATION MAY BE OMITTED. This clinical summary was aggregated from multiple sources. Caution should be exercised in using it in the provision of clinical care. This summary normalizes information from multiple sources, and as a consequence, information in this document may materially change the coding, format and clinical context of patient data. In addition, data may be omitted in some cases. CLINICAL DECISIONS SHOULD BE BASED ON THE PRIMARY CLINICAL RECORDS. [employer] provides no warranty or guarantee of the accuracy or completeness of information in this document.
[2023-05-28 09:07] LABS: Anion Gap 6 (5-15); BUN 20 mg/dL (7-18); BUN/Creat Ratio 26.1 RATIO (10-20); Calcium,Total 9.2 mg/dL (8.5-10.1); Chloride 110 mmol/L (98-107); Creatinine, Serum 0.77 mg/dL (0.55-1.02); EST Glomerular Filtration Rate 77 mL/min (>60); Est Glom Filt Rate - Afr Amer 93 mL/min (>60); Glucose 108 mg/dL (74-106); Potassium 3.8 mmol/L (3.5-5.1); Sodium Level 144 mmol/L (136-145)
== END ==
LOC: OLS.BROOKB 05:00
PROVIDERS: PCP Family Medicine; Visit Provider Family Medicine
DX: E87.1 Hypo-osmolality and hyponatremia (principal)
CPT/HCPCS: 36415; 80048

== ENCOUNTER 2023-05-31 12:56 | Outpatient (RCR) | payer MEDICARE, SELFPAY ==
[2023-05-21 00:48] VITALS: BP 183/65; PULSE 72; RESP 16; TEMP 36.7
[2023-05-31 13:05] VITALS: BP 161/48; PULSE 63; RESP 16; TEMP 36.3
--- NOTE | 2023-06-01 07:19 | PCM.WC.PN ---
History of Present Illness Date of Service: 05/31/23 Chief Complaint: RLE wound History of Wound: Patient is an 81-year-old female who resides at [facility]. She is referred by facility for evaluation and management of right lower extremity wound which have been ongoing for a week or so. She is well known to me as I just discharged her from [facility] for similar wounds less than a month ago and had seen her for an episode of wounds in the same location once before then as well. At her last appointment, her bilateral calf wounds had healed completely and she was discharged with measured compression stockings to reduce risk of recurrence. She is not the most reliable historian, but does report having worn the compression stockings. She does have a compression stocking on the left leg. She is not sure why this wound developed, she cannot recall an injury, denies itching the area. She is not diabetic. She does not smoke. She is ambulatory and denies claudication type symptoms. The wound on her R posterolateral calf is superficial with serous drainage. There is erythema extending somewhat proximally from the wound edge, but there is no appreciable warmth, excessive tenderness, foul odor, focal swelling/fluctuance/induration. Denies N/V, F/C. She does have bilateral lower extremity edema. She does still sleep in a chair, but tries to elevate her feet on a footstool. Subjective Subjective LLE ulceration remains healed. RLE ulceration is healed this week. Her lower extremity edema continues to remain well controlled with 3M wraps. No N/V, F/C, new erythema/warmth/drainage from lower extremities. Objective Data Objective Data Vital Signs: Vital Signs Temp Pulse Resp BP O2 Del Method 97.4 F L 63 16 161/48 H Room Air 05/31/23 13:05 05/31/23 13:05 05/31/23 13:05 05/31/23 13:05 05/31/23 13:05 Oxygen Delivery Method Room Air Charges/Coding Visit Charges Office Visits / Consults: 50314 OV L3 Est 20min Physical Exam Const alert, oriented x3 and no apparent distress Orientation / Consciousness: confused Resp normal respiratory effort, normal air movement, no retractions and no use of accessory muscles Effort and Inspection: able to speak in complete sentences; Negative for stridor or audible wheezes Extremity Extremity Narrative: Bilateral lower extremity edema 2+ Skin Wounds: wounds noted Wound Narrative: R posterolateral calf wound is healed today. L posterior calf wound remains healed. Neuro oriented x3, CN's II-XII intact bilaterally, moves all extremities and no focal motor deficits Psych Appearance: grossly normal Attitude: calm Debridement Note Debridement Note No debridement was completed: No debridement was completed today Post-Debridement Measurements and Additional Note: Post-Debridement Measurements/Treatment NIRU - Nurse 1 - General Ulcer Assessment Start: 05/31/23 13:03 Freq: Status: Active Protocol: STACIA Activity Type Activity Date Activity User E-sign Co-sign Detail Recorded Client Recorded Date Recorded By Document 05/31/23 13:05 [facility] Desktop 05/31/23 13:16 [facility] 05/31/23 13:05 WC - Today's Visit Information Type of service Follow-up Visit (Physician/PARTS REPRESENTATIVE ) Arrival Mode Ambulatory, Walker Transfer Assistance Other Transfer Assist (Other) 1 assist Patient Identification Verified (Name & Yes ) Patient Requires Transmission-Based No Precautions Vital Signs Temperature (97.8 F-99.1 F) 97.4 F L Temperature Source Temporal Pulse Rate (60-100) 63 Pulse Location Monitor Respiratory Rate (12-18) 16 Respiratory rate source Observation Oxygen Delivery Method Room Air Blood Pressure (90/60-120/80) 161/48 H Blood Pressure Mean (mm Hg) 85 Source Monitor Position Sitting Blood Pressure Location Right Forearm History Since Last Visit- (Skip if this is Patient's initial visit) Have you changed medications since your No last visit? Any new allergies or adverse reactions No Had a fall/change in ADL's that may No increase risk of falls Signs or symptoms of abuse and/or No neglect since last visit Have you been in the hospital since your No last visit? Has dressing in place as prescribed Yes Has compression in place as prescribed Yes Has offloadiing in place as prescribed N/A Experienced any changes in pain level or No management Left Footwear Diabetic Shoe Right Footwear Diabetic Shoe Pain Scale: 0-10 Numeric Is Patient Pain Free? Yes Sandy Nurse 1 - General Ulcer Measurement Start: 05/31/23 13:03 Freq: Status: Active Protocol: Activity Type Activity Date Activity User E-sign Co-sign Detail Recorded Client Recorded Date Recorded By Document 05/31/23 13:05 [facility] Desktop 05/31/23 13:16 [facility] 05/31/23 13:05 Wound Center Nurse 1 #5- R POST LE -Combined with other wound No -Current Size (cm) - Length 0.1 -Current Size (cm) - Width 0.1 -Current Size (cm) - Depth 0.1 -Total Square Cm 0.01 -Epithelialization Large 67-100% -Tunneling No -Undermining/Tunneling No -Circular Undermining No -Exudate Amt None Present -Wound Margin Distinct, Outline Attached -Granulation Amt None Present (0 %) -Slough/Fibrin Yes -Necrosis Amt Small (1-33%) -Necrotic Tissue Type Eschar -Texture (Maryann-wound Skin Appearance) Assessed, Scarring -Moisture (Maryann-wound Skin Appearance) Assessed,Dry/ Scaly -Color (Maryann-wound Skin Appearance) Assessed -Temperature (Maryann-wound Skin No Abnormality Appearance) (Pt Warm) -Tenderness on Palpation (Maryann-wound No Skin Appearance) -Ulcer Cleansing Soap and Water -Foul Odor after Cleansing No -Anesthetic Used 5% Lidocaine Gel Right Calf (cm) 36 Right Ankle (cm) 20.7 Left Calf (cm) 34.4 Left Ankle (cm) 20.8 WC - Nurse 3 - General Ulcer D/C NN Start: 05/31/23 13:03 Freq: Status: Active Protocol: Activity Type Activity Date Activity User E-sign Co-sign Detail Recorded Client Recorded Date Recorded By Document 05/31/23 13:42 [facility] Desktop 05/31/23 13:42 [facility] 05/31/23 13:42 Wound Care Center Nurse 3 ble -Lotion applied to leg before Yes compression wrap -Multi-Layered Wrap Application Multi-Layer Comp - Bilat ($ ) Treatment Response Procedure Tolerated Well Pain Scale: 0-10 Numeric Is Patient Pain Free? Yes WC - Visit Discharge Discharge Condition Stable Ambulatory Status Ambulatory, Walker Transportation f Facility Type Alf Care Facility Assessment/Plan Assessment/Plan (1) Non-pressure chronic ulcer of right lower leg: CODE(S): L97.919 - Non-pressure chronic ulcer of unspecified part of right lower leg with unspecified severity (2) Bilateral lower extremity edema: CODE(S): R60.0 - Localized edema PLAN: Plan RLE wound is healed today. These wounds have been frequently recurrent due to her lower extremity edema. In the past, we have discharged with compression stockings but there have been problems with compliance. At this point, I feel she should continue with 3M wraps as her lower extremity edema remains resolved with these. We will apply 3M wraps again today. Her facility will change the wraps twice weekly. I will see her back here in 3 weeks for wrap change and wound check.
== END 2023-06-20 23:59 | disposition home or self-care (01) ==
LOC: WC 12:56
PROVIDERS: PCP Family Medicine; Referring Provider Family Medicine; Visit Provider Physician Assistant
DX: Z09 Encounter for follow-up examination after completed treatment for conditions other than malignant neoplasm (principal); R60.0 Localized edema; Z79.899 Other long term (current) drug therapy
CPT/HCPCS: 29581; 99213; G0463

== ENCOUNTER 2023-07-12 13:00 | Outpatient (RCR) | payer MEDICARE, SELFPAY ==
[2023-06-21 00:30] VITALS: BP 161/48; PULSE 63; RESP 16; TEMP 36.3
[2023-06-21 13:02] VITALS: BP 159/66; PULSE 69; RESP 20; TEMP 36.4
--- NOTE | 2023-06-22 09:22 | PCM.WC.PN ---
History of Present Illness Date of Service: 06/21/23 Chief Complaint: RLE wound History of Wound: Patient is an 81-year-old female who resides at [facility]. She is referred by facility for evaluation and management of right lower extremity wound which have been ongoing for a week or so. She is well known to me as I just discharged her from [facility] for similar wounds less than a month ago and had seen her for an episode of wounds in the same location once before then as well. At her last appointment, her bilateral calf wounds had healed completely and she was discharged with measured compression stockings to reduce risk of recurrence. She is not the most reliable historian, but does report having worn the compression stockings. She does have a compression stocking on the left leg. She is not sure why this wound developed, she cannot recall an injury, denies itching the area. She is not diabetic. She does not smoke. She is ambulatory and denies claudication type symptoms. The wound on her R posterolateral calf is superficial with serous drainage. There is erythema extending somewhat proximally from the wound edge, but there is no appreciable warmth, excessive tenderness, foul odor, focal swelling/fluctuance/induration. Denies N/V, F/C. She does have bilateral lower extremity edema. She does still sleep in a chair, but tries to elevate her feet on a footstool. Subjective Subjective Continues to do well with 3M wraps. Edema remains well-controlled. No recurrence of wounds. Objective Data Objective Data Vital Signs: Vital Signs Temp Pulse Resp BP 97.5 F L 69 20 H 159/66 H 06/21/23 13:02 06/21/23 13:02 06/21/23 13:02 06/21/23 13:02 Charges/Coding Visit Charges Office Visits / Consults: 11197 OV L3 Est 20min Physical Exam Const alert, oriented x3 and no apparent distress Orientation / Consciousness: confused Resp normal respiratory effort, normal air movement, no retractions and no use of accessory muscles Effort and Inspection: able to speak in complete sentences; Negative for stridor or audible wheezes Extremity Extremity Narrative: Bilateral lower extremity edema 2+ Skin Wounds: wounds noted Wound Narrative: R posterolateral calf wound is healed today. L posterior calf wound remains healed. Neuro oriented x3, CN's II-XII intact bilaterally, moves all extremities and no focal motor deficits Psych Appearance: grossly normal Attitude: calm Debridement Note Debridement Note No debridement was completed: No debridement was completed today Post-Debridement Measurements and Additional Note: Post-Debridement Measurements/Treatment - Nurse 1 - General Ulcer Assessment Start: 06/21/23 13:02 Freq: Status: Active Protocol: STACIA Activity Type Activity Date Activity User E-sign Co-sign Detail Recorded Client Recorded Date Recorded By Document 06/21/23 13:02 DL Desktop 06/21/23 13:10 DL 06/21/23 13:02 WC - Today's Visit Information Type of service Follow-up Visit (Physician/OUTSIDE [employer] SALES REPRESENTATIVES ) Arrival Mode Ambulatory, Walker Transfer Assistance None Patient Identification Verified (Name & Yes ) Patient Requires Transmission-Based No Precautions Vital Signs Temperature (97.8 F-99.1 F) 97.5 F L Temperature Source Temporal Pulse Rate (60-100) 69 Pulse Location Monitor Respiratory Rate (12-18) 20 H Respiratory rate source Observation Blood Pressure (90/60-120/80) 159/66 H Blood Pressure Mean (mm Hg) 97 Source Monitor History Since Last Visit- (Skip if this is Patient's initial visit) Have you changed medications since your No last visit? Any new allergies or adverse reactions No Had a fall/change in ADL's that may No increase risk of falls Signs or symptoms of abuse and/or No neglect since last visit Have you been in the hospital since your No last visit? Has dressing in place as prescribed Yes Has compression in place as prescribed Yes Has offloadiing in place as prescribed N/A Experienced any changes in pain level or No management Pain Scale: 0-10 Numeric Is Patient Pain Free? Yes [facility] Nurse 1 - General Ulcer Measurement Start: 06/21/23 13:02 Freq: Status: Active Protocol: Activity Type Activity Date Activity User E-sign Co-sign Detail Recorded Client Recorded Date Recorded By Document 06/21/23 13:02 DL [facility] 06/21/23 13:10 DL 06/21/23 13:02 Wound Center Nurse 1 #5- R POST LE -Current Size (cm) - Length 0 -Current Size (cm) - Width 0 -Current Size (cm) - Depth 0 -Total Square Cm 0 -Photo Taken Yes -Exudate Amt None Present -Wound Margin Flat & Intact -Granulation Amt Large (67-100%) -Granulation Quality [place] -Necrosis Amt None Present (0 %) -Texture (Maryann-wound Skin Appearance) Scarring -Moisture (Maryann-wound Skin Appearance) No Abnormality -Color (Maryann-wound Skin Appearance) Hemosiderin Staining -Temperature (Maryann-wound Skin No Abnormality Appearance) (Pt Warm) -Tenderness on Palpation (Maryann-wound No Skin Appearance) -Ulcer Cleansing Soap and Water -Foul Odor after Cleansing No Right Calf (cm) 35 Right Ankle (cm) 20 Left Calf (cm) 33 Left Ankle (cm) 21 WC - Nurse 3 - General Ulcer D/C NN Start: 06/21/23 13:02 Freq: Status: Active Protocol: Activity Type Activity Date Activity User E-sign Co-sign Detail Recorded Client Recorded Date Recorded By Document 06/21/23 13:25 [facility] Desktop 06/21/23 13:25 [facility] 06/21/23 13:25 Wound Care Center Nurse 3 BLE -Multi-Layered Wrap Application Multi-Layer Comp - Bilat ($ ) -Other APPLIED PER DL SUPERVISOR [employer]ATCHERY Treatment Response Procedure Tolerated Well Pain Scale: 0-10 Numeric Is Patient Pain Free? Yes WC - Visit Discharge Discharge Condition Stable Ambulatory Status Ambulatory, Walker Transportation ECF Facility Type Audit Control Clerk Care Facility Assessment/Plan Assessment/Plan (1) Non-pressure chronic ulcer of right lower leg: CODE(S): L97.919 - Non-pressure chronic ulcer of unspecified part of right lower leg with unspecified severity (2) Bilateral lower extremity edema: CODE(S): R60.0 - Localized edema PLAN: Plan No recurrence of her bilateral lower extremity wounds at this time. Her edema remains well-controlled with 3M wraps. Will continue with 3M wraps. I will see her back once more in 3 weeks to confirm no recurrence of wounds. After that time will transition care back to primary physician at her facility will hopefully continue the 3M wraps as these have been much more successful than compression stockings for her.
[2023-07-12 13:09] VITALS: BP 178/63; PULSE 68; RESP 16; TEMP 36
--- NOTE | 2023-07-13 07:26 | PCM.WC.PN ---
History of Present Illness Date of Service: 07/12/23 Chief Complaint: RLE wound History of Wound: Patient is an 81-year-old female who resides at [facility]. She is referred by facility for evaluation and management of right lower extremity wound which have been ongoing for a week or so. She is well known to me as I just discharged her from [facility] for similar wounds less than a month ago and had seen her for an episode of wounds in the same location once before then as well. At her last appointment, her bilateral calf wounds had healed completely and she was discharged with measured compression stockings to reduce risk of recurrence. She is not the most reliable historian, but does report having worn the compression stockings. She does have a compression stocking on the left leg. She is not sure why this wound developed, she cannot recall an injury, denies itching the area. She is not diabetic. She does not smoke. She is ambulatory and denies claudication type symptoms. The wound on her R posterolateral calf is superficial with serous drainage. There is erythema extending somewhat proximally from the wound edge, but there is no appreciable warmth, excessive tenderness, foul odor, focal swelling/fluctuance/induration. Denies N/V, F/C. She does have bilateral lower extremity edema. She does still sleep in a chair, but tries to elevate her feet on a footstool. Subjective Subjective Patient returns to the wound center today for a wound check. Her lower extremity wounds remain resolved. Her lower extremity edema remains well controlled with 3M wraps. Objective Data Objective Data Vital Signs: Vital Signs Temp Pulse Resp BP O2 Del Method 96.8 F L 68 16 178/63 H Room Air 07/12/23 13:07/12/23 13:07/12/23 13:07/12/23 13:07/12/23 13:09 Oxygen Delivery Method Room Air Charges/Coding Visit Charges Office Visits / Consults: [id number] OV L3 Est 20min Physical Exam Const alert, oriented x3 and no apparent distress Orientation / Consciousness: confused Resp normal respiratory effort, normal air movement, no retractions and no use of accessory muscles Effort and Inspection: able to speak in complete sentences; Negative for stridor or audible wheezes Extremity Extremity Narrative: Bilateral lower extremity edema 2+ Skin no wounds Neuro oriented x3, CN's II-XII intact bilaterally, moves all extremities and no focal motor deficits Psych Appearance: grossly normal Attitude: calm Debridement Note Debridement Note No debridement was completed: No debridement was completed today Post-Debridement Measurements and Additional Note: Post-Debridement Measurements/Treatment WC - Nurse 1 - General Ulcer Assessment Start: 06/21/23 13:02 Freq: Status: Active Protocol: STACIA Activity Type Activity Date Activity User E-sign Co-sign Detail Recorded Client Recorded Date Recorded By Document 06/21/23 13:02 DL Desktop 06/21/23 13:10 DL Document 07/12/23 13:09 [facility] Desktop 07/12/23 13:13 [facility] 06/21/23 07/12/23 13:02 13:09 WC - Today's Visit Information Type of service Follow-up Visit Follow-up Visit (Physician/GOLDSMITH APPRENTICE (Physician/GOLDSMITH APPRENTICE ) ) Arrival Mode Ambulatory, Ambulatory, Walker Walker Transfer Assistance None None Patient Identification Verified (Name & Yes Yes ) Patient Requires Transmission-Based No No Precautions Vital Signs Temperature (97.8 F-99.1 F) 97.5 F L 96.8 F L Temperature Source Temporal Temporal Pulse Rate (60-100) 69 68 Pulse Location Monitor Monitor Respiratory Rate (12-18) 20 H 16 Respiratory rate source Observation Observation Oxygen Delivery Method Room Air Blood Pressure (90/60-120/80) 159/66 H 178/63 H Blood Pressure Mean (mm Hg) 97 101 Source Monitor Monitor Position Sitting Blood Pressure Location Left Arm History Since Last Visit- (Skip if this is Patient's initial visit) Have you changed medications since your No No last visit? Any new allergies or adverse reactions No No Had a fall/change in ADL's that may No No increase risk of falls Signs or symptoms of abuse and/or No No neglect since last visit Have you been in the hospital since your No No last visit? Has dressing in place as prescribed Yes Has compression in place as prescribed Yes Yes Has offloadiing in place as prescribed N/A N/A Experienced any changes in pain level or No No management Left Footwear Regular Shoe Right Footwear Regular Shoe Pain Scale: 0-10 Numeric Is Patient Pain Free? Yes Yes NIRU Delgado Nurse 1 - General Ulcer Measurement Start: 06/21/23 13:02 Freq: Status: Active Protocol: Activity Type Activity Date Activity User E-sign Co-sign Detail Recorded Client Recorded Date Recorded By Document 06/21/23 13:02 Desktop 06/21/23 13:10 Document 07/12/23 13:09 [facility] Desktop 07/12/23 13:13 [facility] 06/21/23 07/12/23 13:02 13:09 Wound Center Nurse 1 #5- R POST LE -Current Size (cm) - Length 0 -Current Size (cm) - Width 0 -Current Size (cm) - Depth 0 -Total Square Cm 0 -Photo Taken Yes -Exudate Amt None Present -Wound Margin Flat & Intact -Granulation Amt Large (67-100%) -Granulation Quality [place] -Necrosis Amt None Present (0 %) -Texture (Maryann-wound Skin Appearance) Scarring -Moisture (Maryann-wound Skin Appearance) No Abnormality -Color (Maryann-wound Skin Appearance) Hemosiderin Staining -Temperature (Maryann-wound Skin No Abnormality Appearance) (Pt Warm) -Tenderness on Palpation (Maryann-wound No Skin Appearance) -Ulcer Cleansing Soap and Water -Foul Odor after Cleansing No Right Calf (cm) 35 36 Right Ankle (cm) 20 20.5 Left Calf (cm) 33 36 Left Ankle (cm) 21 20.8 WC - Nurse 3 - General Ulcer D/C NN Start: 06/21/23 13:02 Freq: Status: Active Protocol: Activity Type Activity Date Activity User E-sign Co-sign Detail Recorded Client Recorded Date Recorded By Document 06/21/23 13:25 [facility] Desktop 06/21/23 13:25 [facility] Document 07/12/23 14:04 Desktop 07/12/23 14:05 06/21/23 07/12/23 13:25 14:04 Wound Care Center Nurse 3 BLE -Multi-Layered Wrap Application Multi-Layer Multi-Layer Comp - Bilat ($ Comp - Bilat ($ ) ) -Other APPLIED PER DL COMPOSING MACHINE OPERATOR Treatment Response Procedure Tolerated Well Pain Scale: 0-10 Numeric Is Patient Pain Free? Yes Yes Teaching: Wound Center Compression Wraps & Stockings -Person Taught Patient -Teaching Method Discussion -Response to teaching Verbalize understanding WC - Visit Discharge Discharge Condition Stable Stable Ambulatory Status Ambulatory, Ambulatory, Walker Wheelchair Transportation ECF Private Auto Medication Reconcilliation completed & Yes provided to patient/care provider Clinical Summary of Care Provided Yes Facility Type Intermediate Care Facility Assessment/Plan Assessment/Plan (1) Bilateral lower extremity edema: CODE(S): R60.0 - Localized edema PLAN: Plan She has had stable control of her edema and no wound recurrence with 3M wraps. At this time, she is discharged from the wound healing center. We will apply 3M wraps today as well. Previously, when we have discharged her with tubigrips or compression stockings she has returned with recurrent wounds within 1 month. For this reason, I recommend continuing the 3M wraps changed twice weekly at her AL facility. Did note some erythema in the achilles area bilaterally, so I also recommend floating her feet at night. She will return as needed.
== END 2023-07-19 23:59 | disposition home or self-care (01) ==
LOC: WC 13:00
PROVIDERS: PCP Family Medicine; Referring Provider Family Medicine; Visit Provider Physician Assistant
DX: L97.919 Non-pressure chronic ulcer of unspecified part of right lower leg with unspecified severity (principal); S81.801S Unspecified open wound, right lower leg, sequela; R60.0 Localized edema; X58.XXXS Exposure to other specified factors, sequela; Z79.899 Other long term (current) drug therapy
CPT/HCPCS: 29581; 99213; G0463

== ENCOUNTER → 2023-08-17 | Outpatient (REF) | payer MEDICARE, SELFPAY | LOC: OLS.BROOKB | PROVIDERS: PCP Family Medicine; Visit Provider Family Medicine | DX: R41.82 Altered mental status, unspecified (principal) | CPT/HCPCS: 87086; 87088 ==

== ENCOUNTER → 2023-09-24 | Outpatient (REF) | payer MEDICARE, SELFPAY ==
[2023-09-24 11:09] LABS: Hemoglobin A1c 6.6 % (3.8-5.6)
== END ==
LOC: OLS.BROOKB 05:00
PROVIDERS: PCP Family Medicine; Visit Provider Family Medicine
DX: I10 Essential (primary) hypertension (principal); E11.9 Type 2 diabetes mellitus without complications
CPT/HCPCS: 36415; 83036

== ENCOUNTER 2023-12-13 13:12 | Outpatient (RCR) | payer MEDICARE, SELFPAY ==
[2023-07-20 00:13] VITALS: BP 178/63; PULSE 68; RESP 16; TEMP 36
[2023-12-13 13:20] VITALS: BP 161/65; PULSE 69; RESP 20; TEMP 36.2; BMI 37.7
--- NOTE | 2023-12-13 14:40 | PCM.WC.HP ---
History of Present Illness Date of Service: 12/13/23 Chief Complaint: RLE wound History of Wound: Patient is an 81-year-old female who resides at [facility]. She is referred by facility for evaluation and management of right lower extremity wound which has been ongoing for an indeterminate amount of time. Patient cannot say and we did not receive any paperwork/information from the facility. She is well known to me as I have seen her here her in the past for similar wounds in approximately the same location most recently from 01/2023 to 06/2023. At her last appointment here in 06/2023, her calf wounds had healed completely and she was discharged with recommendation of continued 3M wraps to reduce risk of recurrence. She is not the most reliable historian with known history of dementia and some confusion noted here today. She is not sure when or how this wound started. She does not recall a specific injury. She reports that she has had compression wraps on her LLE but not on her RLE for unclear reasons. She does admit that she spends a lot of time sitting at a table coloring during the day with her legs hanging down. She also sleeps in a chair and is not sure she is always elevating her legs. She is not diabetic. She does not smoke. She is ambulatory and denies claudication type symptoms. She does have bilateral lower extremity edema, seems to be fairly well controlled with compression today. The wound on her R posterolateral calf is superficial with serous drainage. There is no significant erythema, appreciable warmth, excessive tenderness, foul odor, focal swelling/fluctuance/induration. Denies N/V, F/C. [facility] Medical History (Updated 12/13/23 @ 15:05 by NARDA Perdue) Pressure ulcer of right buttock, stage 2 Pressure ulcer of left buttock, stage 2 Pressure injury of sacral region, stage 1 Cognitive communication disorder Muscle weakness Cellulitis and abscess of right leg HTN (hypertension) Glaucoma Dementia with psychotic disturbance Dementia Obesity CLL (chronic lymphocytic leukemia) Home Medications ?Medication ?Instructions ?Recorded ?Last Taken ?Type acetaminophen 325 mg tablet 650 mg PO Q6H PRN Pain 09/15/22 Unknown History bisacodyl 10 mg rectal suppository 10 mg MS DAILY PRN Constipation 09/15/22 Unknown History furosemide 20 mg tablet 40 mg PO DAILY 09/15/22 Unknown History hydroxyzine HCl 25 mg tablet 25 mg PO TID PRN ITCHING/ANXIETY 09/15/22 Unknown History indapamide 2.5 mg tablet 2.5 mg PO DAILY 09/15/22 Unknown History latanoprost 0.005 % eye drops 1 drp EACH EYE DAILY 09/15/22 Unknown History nystatin 100,000 unit/gram topical 1 applic topical BID PRN Rash 09/15/22 Unknown History powder ondansetron 4 mg disintegrating 4 mg PO Q6H PRN Nausea 09/15/22 Unknown History tablet potassium chloride 20 mEq 20 meq PO DAILY 09/15/22 Unknown History tablet,extended release sodium phosphates 19 gram-7 118 ml MS DAILY PRN Constipation 09/15/22 Unknown History gram/118 mL enema (Fleet Enema) venlafaxine 37.5 mg tablet 75 mg PO DAILY 09/15/22 Unknown History Allergy/AdvReac Type Severity Reaction Status Date / Time timolol Allergy Other Verified 11/08/22 20:35 Social History Smoking Status: Never smoker Vital Signs Vital Signs Vital Signs: 12/13/23 13:20 Temperature 97.2 F L Temperature Source Temporal Pulse Rate 69 Respiratory Rate 20 H Blood Pressure 161/65 H Blood Pressure Mean 97 Blood Pressure Source Monitor Weight Weight: 150 lb 11.094 oz Body Mass Index (BMI) 37.7 Physical Exam Const alert, oriented x3 and no apparent distress Orientation / Consciousness: confused Resp normal respiratory effort, normal air movement, no retractions and no use of accessory muscles Effort and Inspection: able to speak in complete sentences; Negative for stridor or audible wheezes Extremity Extremity Narrative: Bilateral lower extremity edema 2+ Skin Wounds: wounds noted Wound Narrative: R posterolateral calf wound: superficial, moderate adherent slough, serous drainage. No significant surrounding erythema, warmth, focal swelling, foul odor. Neuro oriented x3, CN's II-XII intact bilaterally, moves all extremities and no focal motor deficits Psych Appearance: grossly normal Attitude: calm Debridement Note Debridement Note Post-Debridement Measurements and Additional Note: Post-Debridement Measurements/Treatment NIRU - Nurse 1 - General Ulcer Assessment Start: 12/13/23 13:20 Freq: Status: Active Protocol: STACIA Activity Type Activity Date Activity User E-sign Co-sign Detail Recorded Client Recorded Date Recorded By Document 12/13/23 13:20 DL [id number] 12/13/23 13:34 DL 12/13/23 13:20 WC - Today's Visit Information Type of service Initial Visit Arrival Mode Ambulatory, Walker Transfer Assistance None Patient Identification Verified (Name & Yes ) Patient Requires Transmission-Based No Precautions Height and Weight Height 4 ft 5 in Weight 150 lb 11.094 oz Weight in Pounds 150.7 lbs Weight Measurement Method Estimated by Patient Body Mass Index (BMI) 37.7 BMI Classification Obese BSA - [place] 1.51 Vital Signs Temperature (97.8 F-99.1 F) 97.2 F L Temperature Source Temporal Pulse Rate (60-100) 69 Pulse Location Monitor Respiratory Rate (12-18) 20 H Respiratory rate source Observation Blood Pressure (90/60-120/80) 161/65 H Blood Pressure Mean 97 Source Monitor Pain Scale: 0-10 Numeric Is Patient Pain Free? Yes Lower Extremity Assessment/ Foot Assessment/ Toe Nail Assessment Left -Posterior Tibial Palpable No -Dorsalis Pedis Palpable No -Extremity Color Hemosiderin -Hair Growth on Legs No -Hair Growth on Toes No -Temperature of Extremity Warm -Capillary Refill Greater than 3 Seconds -Dependent Rubor No -Blanched when Elevated No -Lipodermatosclerosis No -Other Deformity No -Prior Foot Ulcer No -Charcot Joint No -Prior Amputation No -Thick Yes -Discolored Yes -Deformed Yes -Improper Length & Hygeine Yes Right -Posterior Tibial Palpable No -Dorsalis Pedis Palpable No -Extremity Color Hemosiderin -Hair Growth on Legs No -Hair Growth on Toes No -Temperature of Extremity Warm -Capillary Refill Greater than 3 Seconds -Dependent Rubor No -Blanched when Elevated No -Lipodermatosclerosis No -Other Deformity No -Prior Foot Ulcer No -Charcot Joint No -Prior Amputation No -Thick Yes -Discolored Yes -Deformed Yes -Improper Length & Hygeine Yes Neuropathy Assessment Feet - Top Side and Bottom <Entered> (a) Communication Assessment Preferred language Chilean Able to Read Yes Able to Write Yes Communication Tools None Right Hearing Abillity Hard of Hearing Left Hearing Abillity Hard of Hearing Visual Assistive Devices Glasses Teaching Assessment Preferences Verbal,Written, Demonstration Barriers to Learning Knowledge Deficit Readiness To Learn Fair Willingness to Engage in Self Management Low Activies Readiness to Engage in Self Management Low Activities Anxiety Level Calm Cooperation Cooperative Perception Coherent Interest in Health Problem Asks Questions Education Importance Acknowledges Need Does Patient Smoke tobacco or other No substances Smoking Status Never smoker Is Patient Diabetic No Functional Assessment Recent Decline in Ability to Perform Denies Any Declines Culture/Shinto/Transition Teacher Cultural/Shinto Needs that may affect No Treatment Plan Would you allow our hospital scrap piler to No meet you for the purpose of spiritual/ emotional support? Transition Teacher to contact place of congregational No Teaching: Wound Center Compression Wraps & Stockings -Person Taught Patient Dressing Your Wound -Person Taught Patient *Welcome to the Wound Center -Person Taught Patient (a) 1 - + WC - Nurse 1 - General Ulcer Measurement Start: 12/13/23 13:20 Freq: Status: Active Protocol: Activity Type Activity Date Activity User E-sign Co-sign Detail Recorded Client Recorded Date Recorded By Document 12/13/23 13:20 DL 10..25.7 12/13/23 13:34 DL 12/13/23 13:20 Wound Center Nurse 1 #9 RLE post cluster -Current Size (cm) - Length 3.4 -Current Size (cm) - Width 4.2 -Current Size (cm) - Depth 0.2 -Total Square Cm 14.28 -Photo Taken Yes -Classification - Thickness Full Thickness without Exposed Support Structure -Exudate Amt Medium -Exudate Type Serosanguineous -Wound Margin Distinct, Outline Attached -Granulation Amt Small (1-33%) -Granulation Quality [place] -Necrosis Amt Large (67-100%) -Necrotic Tissue Type Adherent Slough -Structure Exposed N/A -Texture (Maryann-wound Skin Appearance) Localized Edema ,Scarring -Moisture (Maryann-wound Skin Appearance) No Abnormality -Color (Maryann-wound Skin Appearance) Hemosiderin Staining -Temperature (Maryann-wound Skin No Abnormality Appearance) (Pt Warm) -Tenderness on Palpation (Maryann-wound No Skin Appearance) -Ulcer Cleansing Soap and Water -Foul Odor after Cleansing No -Anesthetic Used 4% Lidocaine Solution Right Calf (cm) 42 Right Ankle (cm) 25 Left Calf (cm) 36.8 Left Ankle (cm) 21.7 WC - Nurse 2 - General Ulcer CM Notes Start: 12/13/23 13:20 Freq: Status: Active Protocol: Activity Type Activity Date Activity User E-sign Co-sign Detail Recorded Client Recorded Date Recorded By Document 12/13/23 13:46 [facility] [email or web address] 12/13/23 13:57 [facility] 12/13/23 13:46 Wound Center Nurse 2 #9 RLE post cluster -Time 13:47 -Correct Patient Yes -Correct Side, Site, Position Yes -Correct Procedure Yes -Procedure Performed Yes -Type of Procedure Debridement -Clinical Debridement Subcutaneous -Tissue Removed Subcutaneous -Post Debridement (cm) - Length 2.8 -Post Debridement (cm) - Width 2 -Post Debridement (cm) - Depth 0.2 -Total Square (Post) (cm) 5.6 -Area of Debridement (cm) - Length 2.8 -Area of Debridement (cm) - Width 2 -Total Square (Area) (cm) 5.6 -Tunneling No -Undermining/Tunneling No -Circular Undermining No -Wound/Ulcer Outcome Not Healed -Ulcer Cleansing Rinsed/ Irrigated with Saline -Foul Odor after Cleansing No -Bioengineered Tissue No -Bleeding Controlled with Pressure -Treatment Response Procedure Tolerated Well -Debridement - Subq, 1st 20sq cm Yes Pain Scale: 0-10 Numeric Is Patient Pain Free? Yes - Nurse 3 - General Ulcer D/C NN Start: 12/13/23 13:20 Freq: Status: Active Protocol: Activity Type Activity Date Activity User E-sign Co-sign Detail Recorded Client Recorded Date Recorded By Document 12/13/23 14:23 12/13/23 14:29 12/13/23 14:23 Wound Care Center Nurse 3 #9 RLE post cluster -Ulcer Cleansing Rinsed/ Irrigated with Saline -Foul Odor after Cleansing No -Primary Dressing Covered/Secured with Dry Gauze -Promogran Nelsy Matter 1 Left -Lotion applied to leg before Yes compression wrap -Multi-Layered Wrap Application Multi-Layer Comp - Left ($) Right -Lotion applied to leg before Yes compression wrap -Multi-Layered Wrap Application Multi-Layer Comp - Right ($ ) Pain Scale: 0-10 Numeric Is Patient Pain Free? Yes WC - Visit Discharge Discharge Condition Stable Ambulatory Status Walker Transportation Private Auto Clinical Summary of Care Provided Yes Charges/Coding Visit Charges Office Visits / Consults: 77829 OV L3 Est 20min Procedures Integumentary 111xxx-113xx: 16242 Otilia subq tissue 20 sq cm/< Assessment/Plan Assessment/Plan (1) Bilateral lower extremity edema: CODE(S): R60.0 - Localized edema (2) Venous ulcer of right leg: CODE(S): I83.019 - Varicose veins of right lower extremity with ulcer of unspecified site; L97.919 - Non-pressure chronic ulcer of unspecified part of right lower leg with unspecified severity PLAN: Plan For wound care: Apply lightly moistened pomogran to the wound bed and cover with foam border dressing. Then apply bilateral 3M wraps for compression. With dressing/wrap changes, wash the leg with soap and water and pat gently to dry. She is encouraged to elevate her legs at all times of rest. I also advise placing a pillow under the calf to reduce pressure to the area of the wound when elevating legs and sleeping. Supplementation with Jerry or Ensure is also recommended. Facility will change her wraps/dressings Mon/Tues next week. She will return to see me here in 1 week.
== END 2023-12-19 23:59 | disposition home or self-care (01) ==
LOC: WC 13:12
PROVIDERS: PCP Family Medicine; Referring Provider Family Medicine; Visit Provider Physician Assistant
DX: I83.012 Varicose veins of right lower extremity with ulcer of calf (principal); L97.212 Non-pressure chronic ulcer of right calf with fat layer exposed; F03.90 Unspecified dementia, unspecified severity, without behavioral disturbance, psychotic disturbance, mood disturbance, and anxiety; I10 Essential (primary) hypertension; I87.2 Venous insufficiency (chronic) (peripheral); R60.0 Localized edema; Z79.899 Other long term (current) drug therapy
CPT/HCPCS: 11042; 29581; 99213; G0463

== ENCOUNTER 2024-01-10 14:15 | Outpatient (RCR) | payer MEDICARE, SELFPAY ==
[2023-12-20 00:05] VITALS: BP 178/63; PULSE 68; RESP 16; TEMP 36; BMI 37.7
[2023-12-27 14:13] VITALS: BP 173/65; PULSE 67; RESP 16; TEMP 36.6; BMI 37.7
--- NOTE | 2023-12-27 16:01 | PCM.WC.PN ---
History of Present Illness Date of Service: 12/27/23 Chief Complaint: RLE wound History of Wound: Patient is an 81-year-old female who resides at [facility]. She is referred by facility for evaluation and management of right lower extremity wound which has been ongoing for an indeterminate amount of time. Patient cannot say and we did not receive any paperwork/information from the facility. She is well known to me as I have seen her here her in the past for similar wounds in approximately the same location most recently from 01/2023 to 06/2023. At her last appointment here in 06/2023, her calf wounds had healed completely and she was discharged with recommendation of continued 3M wraps to reduce risk of recurrence. She is not the most reliable historian with known history of dementia and some confusion noted here today. She is not sure when or how this wound started. She does not recall a specific injury. She reports that she has had compression wraps on her LLE but not on her RLE for unclear reasons. She does admit that she spends a lot of time sitting at a table coloring during the day with her legs hanging down. She also sleeps in a chair and is not sure she is always elevating her legs. She is not diabetic. She does not smoke. She is ambulatory and denies claudication type symptoms. She does have bilateral lower extremity edema, seems to be fairly well controlled with compression today. The wound on her R posterolateral calf is superficial with serous drainage. There is no significant erythema, appreciable warmth, excessive tenderness, foul odor, focal swelling/fluctuance/induration. Denies N/V, F/C. Subjective Subjective Kristi returns to the wound center today for ongoing management of her RLE wound. She reports it stings with dressing changes and intermittently hurts. She denies any N/V, F/C. Objective Data Objective Data Vital Signs: Vital Signs Temp Pulse Resp BP 97.9 F 67 16 173/65 H 12/27/23 14:13 12/27/23 14:13 12/27/23 14:13 12/27/23 14:13 Weight: 150 lb 11.094 oz Body Mass Index (BMI) 37.7 Charges/Coding Procedures Integumentary 111xxx-113xx: [id number] Otilia subq tissue 20 sq cm/< Physical Exam Const alert, oriented x3 and no apparent distress Orientation / Consciousness: confused Resp normal respiratory effort, normal air movement, no retractions and no use of accessory muscles Effort and Inspection: able to speak in complete sentences; Negative for stridor or audible wheezes Extremity Extremity Narrative: Bilateral lower extremity edema 2+ Skin Wounds: wounds noted Wound Narrative: R posterolateral calf wound: superficial, moderate adherent slough, serous drainage. No significant surrounding erythema, warmth, focal swelling, foul odor. Neuro oriented x3, CN's II-XII intact bilaterally, moves all extremities and no focal motor deficits Psych Appearance: grossly normal Attitude: calm Debridement Note Debridement Note Wound debrided: R posterior calf Laterality: Right Type of Debridement: Excisional debridement Anesthesia Used: 5% Lidocaine Gel Depth: Down to and including healthy tissue and in the subcutaneous layer Percentage of wound debrided: 100 Instrument Used: 5mm curette Tissue Removed: slough Severity: Fat Layer Exposed Amount of bleeding with debridement: Mild Bleeding Controlled with: Pressure Patient tolerated procedure: Patient tolerated procedure well Post-Debridement Measurements and Additional Note: Post-Debridement Measurements/Treatment - Nurse 1 - General Ulcer Assessment Start: 12/27/23 14:12 Freq: Status: Active Protocol: [email or web address].PRACHI Activity Type Activity Date Activity User E-sign Co-sign Detail Recorded Client Recorded Date Recorded By Document 12/27/23 14:13 [facility] 12/27/23 14:21 12/27/23 14:13 - Today's Visit Information Type of service Follow-up Visit (Physician/FLAP PRESSER ) Arrival Mode Ambulatory, Walker Patient Identification Verified (Name & Yes ) Height and Weight Body Mass Index (BMI) 37.7 BMI Classification Obese Vital Signs Temperature (97.8 F-99.1 F) 97.9 F Temperature Source Temporal Pulse Rate (60-100) 67 Pulse Location Monitor Respiratory Rate (12-18) 16 Respiratory rate source Observation Blood Pressure (90/60-120/80) 173/65 H Blood Pressure Mean (mm Hg) 101 Source Monitor Position Semi-Fowlers Blood Pressure Location Right Arm History Since Last Visit- (Skip if this is Patient's initial visit) Have you changed medications since your No last visit? Any new allergies or adverse reactions No Had a fall/change in ADL's that may No increase risk of falls Signs or symptoms of abuse and/or No neglect since last visit Have you been in the hospital since your No last visit? Has dressing in place as prescribed Yes Has compression in place as prescribed Yes Has offloadiing in place as prescribed N/A Experienced any changes in pain level or No management Pain Scale: 0-10 Numeric Is Patient Pain Free? Yes - Nurse 1 - General Ulcer Measurement Start: 12/27/23 14:12 Freq: Status: Active Protocol: Activity Type Activity Date Activity User E-sign Co-sign Detail Recorded Client Recorded Date Recorded By Document 12/27/23 14:13 [facility] 12/27/23 14:21 12/27/23 14:13 Wound Center Nurse 1 #9 RLE post cluster -Current Size (cm) - Length 2.8 -Current Size (cm) - Width 2 -Current Size (cm) - Depth 0.1 -Total Square Cm 5.6 -Date of Last Picture (Recall this 12/27/23 field) -Exudate Amt Medium -Exudate Type Serosanguineous -Wound Margin Distinct, Outline Attached -Granulation Amt Medium (34-66%) -Granulation Quality Red -Necrosis Amt Medium (34-66%) -Necrotic Tissue Type Adherent Slough -Texture (Maryann-wound Skin Appearance) Assessed -Moisture (Maryann-wound Skin Appearance) Assessed -Color (Maryann-wound Skin Appearance) Assessed -Temperature (Maryann-wound Skin No Abnormality Appearance) (Pt Warm) -Tenderness on Palpation (Maryann-wound No Skin Appearance) -Ulcer Cleansing Soap and Water -Foul Odor after Cleansing No -Anesthetic Used 5% Lidocaine Gel - Nurse 2 - General Ulcer CM Notes Start: 12/27/23 14:12 Freq: Status: Active Protocol: Activity Type Activity Date Activity User E-sign Co-sign Detail Recorded Client Recorded Date Recorded By Document 12/27/23 14:30 [facility] 12/27/23 14:32 12/27/23 14:30 Wound Center Nurse 2 -Time 14:30 -Correct Patient Yes -Correct Side, Site, Position Yes -Correct Procedure Yes -Procedure Performed Yes -Type of Procedure Debridement -Clinical Debridement Subcutaneous -Tissue Removed Subcutaneous -Post Debridement (cm) - Length 3.2 -Post Debridement (cm) - Width 1.9 -Post Debridement (cm) - Depth 0.2 -Total Square (Post) (cm) 6.08 -Area of Debridement (cm) - Length 3.2 -Area of Debridement (cm) - Width 1.9 -Total Square (Area) (cm) 6.08 -Tunneling No -Undermining/Tunneling No -Circular Undermining No -Wound/Ulcer Outcome Not Healed -Bleeding Controlled with Pressure -Treatment Response Procedure Tolerated Well -Debridement - Subq, 1st 20sq cm Yes Pain Scale: 0-10 Numeric Is Patient Pain Free? Yes WC - Nurse 3 - General Ulcer D/C NN Start: 12/27/23 14:12 Freq: Status: Active Protocol: Activity Type Activity Date Activity User E-sign Co-sign Detail Recorded Client Recorded Date Recorded By Document 12/27/23 14:34 KW xf 12/27/23 14:35 KW 12/27/23 14:34 Wound Care Center Nurse 3 #9 RLE post cluster -Primary Dressing Applied Promogran -Primary Dressing Covered/Secured with Dry Gauze -Promogran 1 ESTER -Multi-Layered Wrap Application Multi-Layer Comp - Bilat ($ ) Pain Scale: 0-10 Numeric Is Patient Pain Free? 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 Then apply bilateral 3M wraps for compression. With dressing/wrap changes, wash the leg with soap and water and pat gently to dry. Change the dressings/wraps twice weekly. She is encouraged to elevate her legs at all times of rest. I also advise placing a pillow under the calf to reduce pressure to the area of the wound when elevating legs and sleeping. Supplementation with Jerry or Ensure is also recommended. The wound center is relocating next week so I will not have clinic. SNF will change dressings twice weekly. I will see her in 2 weeks.
--- NOTE | 2024-01-10 09:56 | WC ---
PHOTO 12/27/23 RLE POSTERIOR
[2024-01-10 14:33] VITALS: BP 137/89; PULSE 65; RESP 16; TEMP 36.3; BMI 37.7
--- NOTE | 2024-01-10 14:45 | PN.PCM_ITS ---
History of Present Illness Date of Service: 01/10/24 Chief Complaint: RLE wound History of Wound: Patient is an 81-year-old female who resides at [facility]. She is referred by facility for evaluation and management of right lower extremity wound which has been ongoing for an indeterminate amount of time. Patient cannot say and we did not receive any paperwork/information from the facility. She is well known to me as I have seen her here her in the past for similar wounds in approximately the same location most recently from 01/2023 to 06/2023. At her last appointment here in 06/2023, her calf wounds had healed completely and she was discharged with recommendation of continued 3M wraps to reduce risk of recurrence. She is not the most reliable historian with known history of dementia and some confusion noted here today. She is not sure when or how this wound started. She does not recall a specific injury. She reports that she has had compression wraps on her LLE but not on her RLE for unclear reasons. She does admit that she spends a lot of time sitting at a table coloring during the day with her legs hanging down. She also sleeps in a chair and is not sure she is always elevating her legs. She is not diabetic. She does not smoke. She is ambulatory and denies claudication type symptoms. She does have bilateral lower extremity edema, seems to be fairly well controlled with compression today. The wound on her R posterolateral calf is superficial with serous drainage. There is no significant erythema, appreciable warmth, excessive tenderness, foul odor, focal swelling/fluctuance/induration. Denies N/V, F/C. Subjective Subjective Kristi has been okay over the last 2 weeks. She reports no significant changes with respect to the wound. She still struggles to elevate her legs through the d ay. She is not sure if she has been using a pillow to offload. Objective Data Objective Data Vital Signs: Vital Signs Temp Pulse Resp BP O2 Del Method 97.4 F L 65 16 137/89 H Room Air 01/10/24 14:33 01/10/24 14:33 01/10/24 14:33 01/10/24 14:33 01/10/24 14:33 Oxygen Delivery Method Room Air Weight: 150 lb 11.094 oz Body Mass Index (BMI) 37.7 Charges/Coding Procedures Integumentary 111xxx-113xx: 72231 Otilia subq tissue 20 sq cm/< Physical Exam Const alert, oriented x3 and no apparent distress Orientation / Consciousness: confused Resp normal respiratory effort, normal air movement, no retractions and no use of accessory muscles Effort and Inspection: able to speak in complete sentences; Negative for stridor or audible wheezes Extremity Extremity Narrative: Bilateral lower extremity edema 2+ Skin Wounds: wounds noted Wound Narrative: R posterolateral calf wound: superficial, moderate adherent slough, serous drainage. No significant surrounding erythema, warmth, focal swelling, foul odor. Neuro oriented x3, CN's II-XII intact bilaterally, moves all extremities and no focal motor deficits Psych Appearance: grossly normal Attitude: calm Debridement Note Debridement Note Wound debrided: R posterior calf Laterality: Right Type of Debridement: Excisional debridement Anesthesia Used: 5% Lidocaine Gel Depth: Down to and including healthy tissue and in the subcutaneous layer Percentage of wound debrided: 100 Instrument Used: 5mm curette Tissue Removed: slough Severity: Fat Layer Exposed Amount of bleeding with debridement: Mild Bleeding Controlled with: Pressure Patient tolerated procedure: Patient tolerated procedure well Post-Debridement Measurements and Additional Note: Post-Debridement Measurements/Treatment - Nurse 1 - General Ulcer Assessment Start: 12/27/23 14:12 Freq: Status: Active Protocol: STACIA Activity Type Activity Date Activity User E-sign Co-sign Detail Recorded Client Recorded Date Recorded By Document 12/27/23 14:13 KW xfh 12/27/23 14:21 KW Document 01/10/24 14:33 KW [id number] 01/10/24 14:35 KW 12/27/23 01/10/24 14:13 14:33 - Today's Visit Information Type of service Follow-up Visit Follow-up Visit (Physician/CIGARETTE SELLER (Physician/CIGARETTE SELLER ) ) Arrival Mode Ambulatory, Ambulatory, Walker Walker Transfer Assistance None Patient Identification Verified (Name & Yes Yes ) Patient Requires Transmission-Based No Precautions Height and Weight Body Mass Index (BMI) 37.7 37.7 BMI Classification Obese Obese Vital Signs Temperature (97.8 F-99.1 F) 97.9 F 97.4 F L Temperature Source Temporal Temporal Pulse Rate (60-100) 67 65 Pulse Location Monitor Monitor Respiratory Rate (12-18) 16 16 Respiratory rate source Observation Observation Oxygen Delivery Method Room Air Blood Pressure (90/60-120/80) 173/65 H 137/89 H Blood Pressure Mean (mm Hg) 101 105 Source Monitor Monitor Position Semi-Fowlers Sitting Blood Pressure Location Right Arm Right Forearm History Since Last Visit- (Skip if this is Patient's initial visit) Have you changed medications since your No No last visit? Any new allergies or adverse reactions No No Had a fall/change in ADL's that may No No increase risk of falls Signs or symptoms of abuse and/or No No neglect since last visit Have you been in the hospital since your No No last visit? Has dressing in place as prescribed Yes Yes Has compression in place as prescribed Yes Yes Has offloadiing in place as prescribed N/A N/A Experienced any changes in pain level or No No management Left Footwear Diabetic Shoe Right Footwear Diabetic Shoe Pain Scale: 0-10 Numeric Is Patient Pain Free? Yes Yes WC - Nurse 1 - General Ulcer Measurement Start: 12/27/23 14:12 Freq: Status: Active Protocol: Activity Type Activity Date Activity User E-sign Co-sign Detail Recorded Client Recorded Date Recorded By Document 12/27/23 14:13 KW xfh 12/27/23 14:21 KW Document 01/10/24 14:33 KW [id number] 01/10/24 14:35 KW 12/27/23 01/10/24 14:13 14:33 Wound Center Nurse 1 #9 RLE post cluster -Combined with other wound No -Current Size (cm) - Length 2.8 4 -Current Size (cm) - Width 2 1.9 -Current Size (cm) - Depth 0.1 0.1 -Total Square Cm 5.6 7.6 -Date of Last Picture (Recall this 12/27/23 field) -Tunneling No -Undermining/Tunneling No -Circular Undermining No -Exudate Amt Medium Medium -Exudate Type Serosanguineous Serosanguineous -Wound Margin Distinct, Distinct, Outline Outline Attached Attached -Granulation Amt Medium (34-66%) Medium (34-66%) -Granulation Quality Red Red -Slough/Fibrin Yes -Necrosis Amt Medium (34-66%) Medium (34-66%) -Necrotic Tissue Type Adherent Slough Adherent Slough -Texture (Maryann-wound Skin Appearance) Assessed Assessed, Scarring -Moisture (Maryann-wound Skin Appearance) Assessed Assessed,Dry/ Scaly -Color (Maryann-wound Skin Appearance) Assessed Assessed -Temperature (Maryann-wound Skin No Abnormality No Abnormality Appearance) (Pt Warm) (Pt Warm) -Tenderness on Palpation (Maryann-wound No No Skin Appearance) -Ulcer Cleansing Soap and Water Soap and Water -Foul Odor after Cleansing No No -Anesthetic Used 5% Lidocaine 5% Lidocaine Gel Gel Lower Limb Edema Present Yes Right Calf (cm) 35.5 Right Ankle (cm) 21.5 - Nurse 2 - General Ulcer CM Notes Start: 12/27/23 14:12 Freq: Status: Active Protocol: Activity Type Activity Date Activity User E-sign Co-sign Detail Recorded Client Recorded Date Recorded By Document 12/27/23 14:30 [facility] 12/27/23 14:32 Document 01/10/24 14:36 [id number] 01/10/24 14:41 12/27/23 01/10/24 14:30 14:36 Wound Center Nurse 2 #9 RLE post cluster -Time 14:30 14:36 -Correct Patient Yes Yes -Correct Side, Site, Position Yes Yes -Correct Procedure Yes Yes -Procedure Performed Yes Yes -Type of Procedure Debridement Debridement -Clinical Debridement Subcutaneous Subcutaneous -Tissue Removed Subcutaneous Subcutaneous -Post Debridement (cm) - Length 3.2 4.0 -Post Debridement (cm) - Width 1.9 1.3 -Post Debridement (cm) - Depth 0.2 0.1 -Total Square (Post) (cm) 6.08 5.20 -Area of Debridement (cm) - Length 3.2 4.0 -Area of Debridement (cm) - Width 1.9 1.3 -Total Square (Area) (cm) 6.08 5.20 -Tunneling No No -Undermining/Tunneling No No -Circular Undermining No No -Wound/Ulcer Outcome Not Healed Not Healed -Ulcer Cleansing Rinsed/ Irrigated with Saline -Foul Odor after Cleansing No -Bioengineered Tissue No -Bleeding Controlled with Pressure Pressure -Treatment Response Procedure Procedure Tolerated Well Tolerated Well -Debridement - Subq, 1st 20sq cm Yes Yes Pain Scale: 0-10 Numeric Is Patient Pain Free? Yes Yes - Nurse 3 - General Ulcer D/C NN Start: 12/27/23 14:12 Freq: Status: Active Protocol: Activity Type Activity Date Activity User E-sign Co-sign Detail Recorded Client Recorded Date Recorded By Document 12/27/23 14:34 KW xfh 12/27/23 14:35 KW 12/27/23 14:34 Wound Care Center Nurse 3 #9 RLE post cluster -Primary Dressing Applied Promogran -Primary Dressing Covered/Secured with Dry Gauze -Promogran 1 ESTER -Multi-Layered Wrap Application Multi-Layer Comp - Bilat ($ ) Pain Scale: 0-10 Numeric Is Patient Pain Free? 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 Then apply bilateral 3M wraps for compression. With dressing/wrap changes, wash the leg with soap and water and pat gently to dry. Change the dressings/wraps twice weekly. She is again encouraged to elevate her legs at all times of rest. I also strongly advise placing a pillow under the calf to reduce pressure to the area of the wound when elevating legs and sleeping, will make a note on her orders so hopefully SNF staff can help increase compliance with this. Supplementation with Jerry or Ensure is also recommended. She will return to see me in 1 week or sooner as needed.
== END 2024-01-19 23:59 | disposition home or self-care (01) ==
LOC: WC 14:15
PROVIDERS: PCP Family Medicine; Referring Provider Family Medicine; Visit Provider Physician Assistant
DX: I83.012 Varicose veins of right lower extremity with ulcer of calf (principal); L97.212 Non-pressure chronic ulcer of right calf with fat layer exposed; F03.90 Unspecified dementia, unspecified severity, without behavioral disturbance, psychotic disturbance, mood disturbance, and anxiety; R60.0 Localized edema; Z79.899 Other long term (current) drug therapy
CPT/HCPCS: 11042; 29581

== ENCOUNTER 2024-02-14 14:11 | Outpatient (RCR) | payer MEDICARE, SELFPAY ==
[2024-01-20 00:11] VITALS: BP 178/63; PULSE 68; RESP 16; TEMP 36; BMI 37.7
[2024-02-14 14:19] VITALS: BP 185/84; PULSE 75; RESP 20; TEMP 36.1; BMI 37.7
== END 2024-02-18 23:59 | disposition home or self-care (01) ==
LOC: WC 14:11
PROVIDERS: PCP Family Medicine; Referring Provider Family Medicine; Visit Provider Physician Assistant
DX: I83.012 Varicose veins of right lower extremity with ulcer of calf (principal); L97.212 Non-pressure chronic ulcer of right calf with fat layer exposed; F03.90 Unspecified dementia, unspecified severity, without behavioral disturbance, psychotic disturbance, mood disturbance, and anxiety; I87.2 Venous insufficiency (chronic) (peripheral); I10 Essential (primary) hypertension; R60.0 Localized edema; Z79.899 Other long term (current) drug therapy
CPT/HCPCS: 11042; 11045; 29581

== ENCOUNTER → 2024-03-03 | Outpatient (REF) | payer MEDICARE, SELFPAY ==
[2024-03-03 08:48] LABS: Anion Gap 6 (5-15); BUN 27 mg/dL (7-18); BUN/Creat Ratio 29.7 RATIO (10-20); Chloride 105 mmol/L (98-107); Creatinine, Serum 0.91 mg/dL (0.55-1.02); EST Glomerular Filtration Rate 63 mL/min (>60); Est Glom Filt Rate - Afr Amer 76 mL/min (>60); Glucose 134 mg/dL (74-106); Potassium 4.4 mmol/L (3.5-5.1); Sodium Level 141 mmol/L (136-145)
== END ==
LOC: OLS.BROOKB 04:00
PROVIDERS: PCP Family Medicine; Visit Provider Family Medicine
DX: E11.9 Type 2 diabetes mellitus without complications (principal); R60.0 Localized edema; I83.019 Varicose veins of right lower extremity with ulcer of unspecified site
CPT/HCPCS: 36415; 80048

== ENCOUNTER 2024-03-20 14:15 | Outpatient (RCR) | payer MEDICARE, SELFPAY ==
[2024-02-19 00:34] VITALS: BP 178/63; PULSE 68; RESP 16; TEMP 36; BMI 37.7
[2024-02-21 14:24] VITALS: BP 162/37; PULSE 74; RESP 18; TEMP 36.5; BMI 37.7
--- NOTE | 2024-02-21 16:10 | PCM.WC.PN ---
History of Present Illness Date of Service: 02/21/24 Chief Complaint: RLE wound History of Wound: Patient is an 81-year-old female who resides at [facility]. She is referred by facility for evaluation and management of right lower extremity wound which has been ongoing for an indeterminate amount of time. Patient cannot say and we did not receive any paperwork/information from the facility. She is well known to me as I have seen her here her in the past for similar wounds in approximately the same location most recently from 01/2023 to 06/2023. At her last appointment here in 06/2023, her calf wounds had healed completely and she was discharged with recommendation of continued 3M wraps to reduce risk of recurrence. She is not the most reliable historian with known history of dementia and some confusion noted here today. She is not sure when or how this wound started. She does not recall a specific injury. She reports that she has had compression wraps on her LLE but not on her RLE for unclear reasons. She does admit that she spends a lot of time sitting at a table coloring during the day with her legs hanging down. She also sleeps in a chair and is not sure she is always elevating her legs. She is not diabetic. She does not smoke. She is ambulatory and denies claudication type symptoms. She does have bilateral lower extremity edema, seems to be fairly well controlled with compression today. The wound on her R posterolateral calf is superficial with serous drainage. There is no significant erythema, appreciable warmth, excessive tenderness, foul odor, focal swelling/fluctuance/induration. Denies N/V, F/C. Subjective Subjective Kristi's bandages seem to have been wrapped much better over this last week. She feels they are doing a better job with then at [facility]. She states she is trying to elevate her legs more. Objective Data Objective Data Vital Signs: Vital Signs Temp Pulse Resp BP 97.7 F L 74 18 162/37 H 02/21/24 14:24 02/21/24 14:24 02/21/24 14:24 02/21/24 14:24 Weight: 150 lb 11.094 oz Body Mass Index (BMI) 37.7 Charges/Coding Procedures Integumentary 111xxx-113xx: [id number] Otilia subq tissue 20 sq cm/< Physical Exam Const alert, oriented x3 and no apparent distress Orientation / Consciousness: confused Resp normal respiratory effort, normal air movement, no retractions and no use of accessory muscles Effort and Inspection: able to speak in complete sentences; Negative for stridor or audible wheezes Extremity Extremity Narrative: Bilateral lower extremity edema 1+ Skin Wounds: wounds noted Wound Narrative: R posterolateral calf wound cluster improved in size from last visit, superficial, pink well-bleeding base, moderate adherent slough, serous drainage. No significant surrounding erythema, warmth, focal swelling, foul odor. Neuro oriented x3, CN's II-XII intact bilaterally, moves all extremities and no focal motor deficits Psych Appearance: grossly normal Attitude: calm Debridement Note Debridement Note Wound debrided: R posterior calf Laterality: Right Type of Debridement: Excisional debridement Anesthesia Used: 5% Lidocaine Gel Depth: Down to and including healthy tissue and in the subcutaneous layer Percentage of wound debrided: 100 Instrument Used: 5mm curette Tissue Removed: slough Severity: Fat Layer Exposed Amount of bleeding with debridement: Mild Bleeding Controlled with: Pressure Patient tolerated procedure: Patient tolerated procedure well Post-Debridement Measurements and Additional Note: Post-Debridement Measurements/Treatment - Nurse 1 - General Ulcer Assessment Start: 02/21/24 14:21 Freq: Status: Active Protocol: [email or web address].[email or web address] Activity Type Activity Date Activity User E-sign Co-sign Detail Recorded Client Recorded Date Recorded By Document 02/21/24 14:24 DL [id number] 02/21/24 14:34 DL 02/21/24 14:24 - Today's Visit Information Type of service Follow-up Visit (Physician/BILLING CHECKER ) Arrival Mode Ambulatory, Walker Transfer Assistance None Patient Identification Verified (Name & Yes ) Patient Requires Transmission-Based No Precautions Height and Weight Body Mass Index (BMI) 37.7 BMI Classification Obese Vital Signs Temperature (97.8 F-99.1 F) 97.7 F L Temperature Source Temporal Pulse Rate (60-100) 74 Pulse Location Monitor Respiratory Rate (12-18) 18 Respiratory rate source Observation Blood Pressure (90/60-120/80) 162/37 H Blood Pressure Mean (mm Hg) 78 Source Monitor History Since Last Visit- (Skip if this is Patient's initial visit) Have you changed medications since your No last visit? Any new allergies or adverse reactions No Had a fall/change in ADL's that may No increase risk of falls Signs or symptoms of abuse and/or No neglect since last visit Have you been in the hospital since your No last visit? Has dressing in place as prescribed Yes Has compression in place as prescribed Yes Has offloadiing in place as prescribed N/A Experienced any changes in pain level or No management Left Footwear Regular Shoe Right Footwear Regular Shoe Pain Scale: 0-10 Numeric Is Patient Pain Free? Yes WC - Nurse 1 - General Ulcer Measurement Start: 02/21/24 14:21 Freq: Status: Active Protocol: Activity Type Activity Date Activity User E-sign Co-sign Detail Recorded Client Recorded Date Recorded By Document 02/21/24 14:24 DL [id number] 02/21/24 14:34 DL 02/21/24 14:24 Wound Center Nurse 1 #9 RLE post cluster -Current Size (cm) - Length 4.6 -Current Size (cm) - Width 2.5 -Current Size (cm) - Depth 0.1 -Total Square Cm 11.50 -Exudate Amt Medium -Exudate Type Serosanguineous -Wound Margin Distinct, Outline Attached -Granulation Amt Large (67-100%) -Granulation Quality Red -Necrosis Amt Small (1-33%) -Necrotic Tissue Type Adherent Slough -Structure Exposed N/A -Texture (Maryann-wound Skin Appearance) Scarring -Moisture (Maryann-wound Skin Appearance) No Abnormality -Color (Maryann-wound Skin Appearance) No Abnormality -Temperature (Maryann-wound Skin No Abnormality Appearance) (Pt Warm) -Ulcer Cleansing Soap and Water -Foul Odor after Cleansing No -Anesthetic Used 5% Lidocaine Gel - Nurse 2 - General Ulcer CM Notes Start: 02/21/24 14:21 Freq: Status: Active Protocol: Activity Type Activity Date Activity User E-sign Co-sign Detail Recorded Client Recorded Date Recorded By Document 02/21/24 14:39 [id number] 02/21/24 14:48 02/21/24 14:39 Wound Center Nurse 2 -Time 14:46 -Correct Patient Yes -Correct Side, Site, Position Yes -Correct Procedure Yes -Procedure Performed Yes -Type of Procedure Debridement -Clinical Debridement Subcutaneous -Tissue Removed Subcutaneous -Post Debridement (cm) - Length 7.5 -Post Debridement (cm) - Width 3.9 -Post Debridement (cm) - Depth 0.1 -Total Square (Post) (cm) 29.25 -Area of Debridement (cm) - Length 7.5 -Area of Debridement (cm) - Width 3.9 -Total Square (Area) (cm) 29.25 -Wound/Ulcer Outcome Not Healed -Ulcer Cleansing Rinsed/ Irrigated with Saline -Foul Odor after Cleansing No -Bioengineered Tissue No -Bleeding Controlled with Pressure -Treatment Response Procedure Tolerated Well -Debridement - Subq, 1st 20sq cm Yes -Debridement, SubQ, ea addt'l 20sq cm 1 or part thereof Pain Scale: 0-10 Numeric Is Patient Pain Free? Yes - Nurse 3 - General Ulcer D/C NN Start: 02/21/24 14:21 Freq: Status: Active Protocol: Activity Type Activity Date Activity User E-sign Co-sign Detail Recorded Client Recorded Date Recorded By Document 02/21/24 15:09 [facility] [id number] 02/21/24 15:10 [facility] 02/21/24 15:09 Wound Care Center Nurse 3 #9 RLE post cluster -Ulcer Cleansing Rinsed/ Irrigated with Saline -Foul Odor after Cleansing No -Primary Dressing Applied Promogran -Other Dressing abd -Primary Dressing Covered/Secured with Dry Gauze & Roll Gauze, Secured with Tape -Promogran 1 ESTER -Multi-Layered Wrap Application Multi-Layer Comp - Bilat ($ ) Treatment Response Procedure Tolerated Well Pain Scale: 0-10 Numeric Is Patient Pain Free? 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 Then apply bilateral 3M wraps for compression. With dressing/wrap changes, wash the leg with soap and water and pat gently to dry. Change the dressings/wraps twice weekly. Dressing changes at SNF seem to have been much better this week, could tell that the 3M wraps had been applied properly and her swelling is looking much better this week. She is again encouraged to elevate her legs at all times of rest. I also strongly advise placing a pillow under the calf to reduce pressure to the area of the wound when elevating legs and sleeping, will make a note on her orders so hopefully SNF staff can help increase compliance with this. Supplementation with Jerry or Ensure is also recommended. I am out next week so she will return to see me in 2 weeks.
[2024-03-06 14:29] VITALS: BP 149/60; PULSE 67; RESP 18; TEMP 35.9; BMI 37.7
--- NOTE | 2024-03-06 18:24 | PN.PCM_ITS ---
History of Present Illness Date of Service: 03/06/24 Chief Complaint: RLE wound History of Wound: Patient is an 81-year-old female who resides at [facility]. She is referred by facility for evaluation and management of right lower extremity wound which has been ongoing for an indeterminate amount of time. Patient cannot say and we did not receive any paperwork/information from the facility. She is well known to me as I have seen her here her in the past for similar wounds in approximately the same location most recently from 01/2023 to 06/2023. At her last appointment here in 06/2023, her calf wounds had healed completely and she was discharged with recommendation of continued 3M wraps to reduce risk of recurrence. She is not the most reliable historian with known history of dementia and some confusion noted here today. She is not sure when or how this wound started. She does not recall a specific injury. She reports that she has had compression wraps on her LLE but not on her RLE for unclear reasons. She does admit that she spends a lot of time sitting at a table coloring during the day with her legs hanging down. She also sleeps in a chair and is not sure she is always elevating her legs. She is not diabetic. She does not smoke. She is ambulatory and denies claudication type symptoms. She does have bilateral lower extremity edema, seems to be fairly well controlled with compression today. The wound on her R posterolateral calf is superficial with serous drainage. There is no significant erythema, appreciable warmth, excessive tenderness, foul odor, focal swelling/fluctuance/induration. Denies N/V, F/C. Subjective Subjective States she is overall doing okay today. She has not been sleeping very well so is fatigued but otherwise no complaints. She reports intermittent pain at the site of the wound, comes and goes. She feels that the wound dressings and wraps has been better applied. She has not noticed any adverse GI effects or other side effects from the prescribed antibiotics. Objective Data Objective Data Vital Signs: Vital Signs Temp Pulse Resp BP 96.6 F L 67 18 149/60 H 03/06/24 14:29 03/06/24 14:29 03/06/24 14:29 03/06/24 14:29 Weight: 150 lb 11.094 oz Body Mass Index (BMI) 37.7 Lab / Micro Data Micro: Microbiology 02/21/24 14:48 Wound - Leg, Right Gram Stain - Final 02/21/24 14:48 Wound - Leg, Right Wound Culture - Final Proteus mirabilis Staphylococcus aureus Pseudomonas aeruginosa 02/21/24 14:48 Wound - Leg, Right Anaerobic Culture - Final No anaerobic bacteria isolated. Charges/Coding Procedures Integumentary 111xxx-113xx: 20199 Otilia subq tissue 20 sq cm/< Physical Exam Const alert, oriented x3 and no apparent distress Orientation / Consciousness: confused Resp normal respiratory effort, normal air movement, no retractions and no use of accessory muscles Effort and Inspection: able to speak in complete sentences; Negative for stridor or audible wheezes Extremity Extremity Narrative: Bilateral lower extremity edema 1+ Skin Wounds: wounds noted Wound Narrative: R posterolateral calf wound cluster improved in size from last visit, superficial, pink well-bleeding base, moderate adherent slough, serous drainage. No significant surrounding erythema, warmth, focal swelling, foul odor. Neuro oriented x3, CN's II-XII intact bilaterally, moves all extremities and no focal motor deficits Psych Appearance: grossly normal Attitude: calm Debridement Note Debridement Note Wound debrided: R posterior calf Laterality: Right Type of Debridement: Excisional debridement Anesthesia Used: 5% Lidocaine Gel Depth: Down to and including healthy tissue and in the subcutaneous layer Percentage of wound debrided: 100 Instrument Used: 5mm curette Tissue Removed: slough Severity: Fat Layer Exposed Amount of bleeding with debridement: Mild Bleeding Controlled with: Pressure Patient tolerated procedure: Patient tolerated procedure well Post-Debridement Measurements and Additional Note: Post-Debridement Measurements/Treatment - Nurse 1 - General Ulcer Assessment Start: 02/21/24 14:21 Freq: Status: Active Protocol: NIRU.PRACHI Activity Type Activity Date Activity User E-sign Co-sign Detail Recorded Client Recorded Date Recorded By Document 02/21/24 14:24 DL [id number] 02/21/24 14:34 DL Document 03/06/24 14:29 DL [id number] 03/06/24 14:39 DL 02/21/24 03/06/24 14:24 14:29 - Today's Visit Information Type of service Follow-up Visit Follow-up Visit (Physician/COASTAL AND ESTUARY SPECIALIST (Physician/COASTAL AND ESTUARY SPECIALIST ) ) Arrival Mode Ambulatory, Ambulatory, Walker Walker Transfer Assistance None Manual Transfer Assist (Other) X1 Patient Identification Verified (Name & Yes Yes ) Patient Requires Transmission-Based No No Precautions Height and Weight Body Mass Index (BMI) 37.7 37.7 BMI Classification Obese Obese Vital Signs Temperature (97.8 F-99.1 F) 97.7 F L 96.6 F L Temperature Source Temporal Temporal Pulse Rate (60-100) 74 67 Pulse Location Monitor Monitor Respiratory Rate (12-18) 18 18 Respiratory rate source Observation Observation Blood Pressure (90/60-120/80) 162/37 H 149/60 H Blood Pressure Mean (mm Hg) 78 89 Source Monitor Monitor History Since Last Visit- (Skip if this is Patient's initial visit) Have you changed medications since your No No last visit? Any new allergies or adverse reactions No No Had a fall/change in ADL's that may No No increase risk of falls Signs or symptoms of abuse and/or No No neglect since last visit Have you been in the hospital since your No No last visit? Has dressing in place as prescribed Yes Yes Has compression in place as prescribed Yes Yes Has offloadiing in place as prescribed N/A Yes Experienced any changes in pain level or No No management Left Footwear Regular Shoe Right Footwear Regular Shoe Pain Scale: 0-10 Numeric Is Patient Pain Free? Yes Yes WC - Nurse 1 - General Ulcer Measurement Start: 02/21/24 14:21 Freq: Status: Active Protocol: Activity Type Activity Date Activity User E-sign Co-sign Detail Recorded Client Recorded Date Recorded By Document 02/21/24 14:24 DL [id number] 02/21/24 14:34 DL Document 03/06/24 14:29 DL [id number] 03/06/24 14:39 DL 02/21/24 03/06/24 14:24 14:29 Wound Center Nurse 1 #9 RLE post cluster -Current Size (cm) - Length 4.6 54.8 -Current Size (cm) - Width 2.5 2.8 -Current Size (cm) - Depth 0.1 0.1 -Total Square Cm 11.50 153.44 -Exudate Amt Medium Medium -Exudate Type Serosanguineous Serosanguineous -Wound Margin Distinct, Distinct, Outline Outline Attached Attached -Granulation Amt Large (67-100%) Large (67-100%) -Granulation Quality Red Red -Necrosis Amt Small (1-33%) Small (1-33%) -Necrotic Tissue Type Adherent Slough Adherent Slough -Structure Exposed N/A N/A -Texture (Maryann-wound Skin Appearance) Scarring Scarring -Moisture (Maryann-wound Skin Appearance) No Abnormality Dry/Scaly -Color (Maryann-wound Skin Appearance) No Abnormality Hemosiderin Staining -Temperature (Maryann-wound Skin No Abnormality No Abnormality Appearance) (Pt Warm) (Pt Warm) -Ulcer Cleansing Soap and Water Soap and Water -Foul Odor after Cleansing No No -Anesthetic Used 5% Lidocaine 5% Lidocaine Gel Gel Right Calf (cm) 36.4 Right Ankle (cm) 22 Left Calf (cm) 356 Left Ankle (cm) 21.2 WC - Nurse 2 - General Ulcer CM Notes Start: 02/21/24 14:21 Freq: Status: Active Protocol: Activity Type Activity Date Activity User E-sign Co-sign Detail Recorded Client Recorded Date Recorded By Document 02/21/24 14:39 [id number] 02/21/24 14:48 Document 03/06/24 15:22 [id number] 03/06/24 15:26 02/21/24 03/06/24 14:39 15:22 Wound Center Nurse 2 #9 RLE post cluster -Time 14:46 15:22 -Correct Patient Yes Yes -Correct Side, Site, Position Yes Yes -Correct Procedure Yes Yes -Procedure Performed Yes Yes -Type of Procedure Debridement Debridement -Clinical Debridement Subcutaneous Subcutaneous -Tissue Removed Subcutaneous Subcutaneous -Post Debridement (cm) - Length 7.5 6.5 -Post Debridement (cm) - Width 3.9 2.3 -Post Debridement (cm) - Depth 0.1 0.1 -Total Square (Post) (cm) 29.25 14.95 -Area of Debridement (cm) - Length 7.5 6.5 -Area of Debridement (cm) - Width 3.9 2.3 -Total Square (Area) (cm) 29.25 14.95 -Tunneling No -Undermining/Tunneling No -Circular Undermining No -Wound/Ulcer Outcome Not Healed Not Healed -Ulcer Cleansing Rinsed/ Rinsed/ Irrigated with Irrigated with Saline Saline -Foul Odor after Cleansing No No -Bioengineered Tissue No No -Bleeding Controlled with Pressure Pressure -Treatment Response Procedure Procedure Tolerated Well Tolerated Well -Debridement - Subq, 1st 20sq cm Yes Yes -Debridement, SubQ, ea addt'l 20sq cm 1 or part thereof Pain Scale: 0-10 Numeric Is Patient Pain Free? Yes Yes - Nurse 3 - General Ulcer D/C NN Start: 02/21/24 14:21 Freq: Status: Active Protocol: Activity Type Activity Date Activity User E-sign Co-sign Detail Recorded Client Recorded Date Recorded By Document 02/21/24 15:09 [facility] [id number] 02/21/24 15:10 [facility] Document 03/06/24 15:43 [facility] [id number] 03/06/24 15:44 BM 02/21/24 03/06/24 15:09 15:43 Wound Care Center Nurse 3 #9 RLE post cluster -Ulcer Cleansing Rinsed/ Rinsed/ Irrigated with Irrigated with Saline Saline -Foul Odor after Cleansing No No -Primary Dressing Applied Promogran Promogran Nelsy Matter -Other Dressing abd abd -Primary Dressing Covered/Secured with Dry Gauze & Dry Gauze & Roll Gauze, Roll Gauze, Secured with Secured with Tape Tape -Promogran 1 -Promogran Nelsy Matter 1 ESTER -Multi-Layered Wrap Application Multi-Layer Multi-Layer Comp - Bilat ($ Comp - Bilat ($ ) ) Treatment Response Procedure Tolerated Well Pain Scale: 0-10 Numeric Is Patient Pain Free? 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 Apply lightly moistened Nelsy to the wound bed and cover with foam border dressing. Then apply bilateral 3M wraps for compression. With dressing/wrap changes, wash the leg with soap and water and pat gently to dry. Change the dressings/wraps twice weekly. Her wound cultures grew Proteus, staph, and Pseudomonas. All were susceptible to ciprofloxacin. Given unclear kidney function I had initiated Cipro 500 mg tablet twice daily x 14 days. I did order an updated BMP to be completed at the facility but have not seen these results come through yet, we will follow-up on this. She is again encouraged to elevate her legs at all times of rest. I also strongly advise placing a pillow under the calf to reduce pressure to the area of the wound when elevating legs and sleeping, will make a note on her orders so hopefully SNF staff can help increase compliance with this. Supplementation with Jerry or Ensure is also recommended. She will return to see me in 2 weeks, sooner as needed.
[2024-03-20 14:08] VITALS: BP 152/43; PULSE 65; RESP 18; TEMP 36.6; BMI 37.7
--- NOTE | 2024-03-20 16:20 | PN.PCM_ITS ---
History of Present Illness Date of Service: 03/20/24 Chief Complaint: RLE wound History of Wound: Patient is an 81-year-old female who resides at [facility]. She is referred by facility for evaluation and management of right lower extremity wound which has been ongoing for an indeterminate amount of time. Patient cannot say and we did not receive any paperwork/information from the facility. She is well known to me as I have seen her here her in the past for similar wounds in approximately the same location most recently from 01/2023 to 06/2023. At her last appointment here in 06/2023, her calf wounds had healed completely and she was discharged with recommendation of continued 3M wraps to reduce risk of recurrence. She is not the most reliable historian with known history of dementia and some confusion noted here today. She is not sure when or how this wound started. She does not recall a specific injury. She reports that she has had compression wraps on her LLE but not on her RLE for unclear reasons. She does admit that she spends a lot of time sitting at a table coloring during the day with her legs hanging down. She also sleeps in a chair and is not sure she is always elevating her legs. She is not diabetic. She does not smoke. She is ambulatory and denies claudication type symptoms. She does have bilateral lower extremity edema, seems to be fairly well controlled with compression today. The wound on her R posterolateral calf is superficial with serous drainage. There is no significant erythema, appreciable warmth, excessive tenderness, foul odor, focal swelling/fluctuance/induration. Denies N/V, F/C. Subjective Subjective Kristi returns for her R posterior calf wound. She reports poor sleep over this past week but otherwise no complaints. Objective Data Objective Data Vital Signs: Vital Signs Temp Pulse Resp BP O2 Del Method 97.8 F 65 18 152/43 H Room Air 03/20/24 14:08 03/20/24 14:08 03/20/24 14:08 03/20/24 14:08 03/20/24 14:08 Oxygen Delivery Method Room Air Weight: 150 lb 11.094 oz Body Mass Index (BMI) 37.7 Lab / Micro Data Micro: Microbiology 02/21/24 14:48 Wound - Leg, Right Gram Stain - Final 02/21/24 14:48 Wound - Leg, Right Wound Culture - Final Proteus mirabilis Staphylococcus aureus Pseudomonas aeruginosa 02/21/24 14:48 Wound - Leg, Right Anaerobic Culture - Final No anaerobic bacteria isolated. Charges/Coding Procedures Integumentary 111xxx-113xx: 04109 Otilia subq tissue 20 sq cm/< Physical Exam Const alert, oriented x3 and no apparent distress Orientation / Consciousness: confused Resp normal respiratory effort, normal air movement, no retractions and no use of accessory muscles Effort and Inspection: able to speak in complete sentences; Negative for stridor or audible wheezes Extremity Extremity Narrative: Bilateral lower extremity edema 1+ Skin Wounds: wounds noted Wound Narrative: R posterolateral calf wound cluster significantly improved in size from last visit, superficial, pink well-bleeding base, moderate adherent slough, serous drainage. No significant surrounding erythema, warmth, focal swelling, foul od or. Neuro oriented x3, CN's II-XII intact bilaterally, moves all extremities and no focal motor deficits Psych Appearance: grossly normal Attitude: calm Debridement Note Debridement Note Wound debrided: R posterior calf Laterality: Right Type of Debridement: Excisional debridement Anesthesia Used: 5% Lidocaine Gel Depth: Down to and including healthy tissue and in the subcutaneous layer Percentage of wound debrided: 100 Instrument Used: 5mm curette Tissue Removed: slough Severity: Fat Layer Exposed Amount of bleeding with debridement: Mild Bleeding Controlled with: Pressure Patient tolerated procedure: Patient tolerated procedure well Post-Debridement Measurements and Additional Note: Post-Debridement Measurements/Treatment - Nurse 1 - General Ulcer Assessment Start: 02/21/24 14:21 Freq: Status: Active Protocol: STACIA Activity Type Activity Date Activity User E-sign Co-sign Detail Recorded Client Recorded Date Recorded By Document 02/21/24 14:24 DL [id number] 02/21/24 14:34 DL Document 03/06/24 14:29 DL [id number] 03/06/24 14:39 DL Document 03/20/24 14:08 KW [id number] 03/20/24 14:29 KW 02/21/24 03/06/24 03/20/24 14:24 14:29 14:08 - Today's Visit Information Type of service Follow-up Visit Follow-up Visit Follow-up Visit (Physician/ALTERATION TAILOR (Physician/ALTERATION TAILOR (Physician/ALTERATION TAILOR ) ) ) Arrival Mode Ambulatory, Ambulatory, Ambulatory, Walker Walker Walker Transfer Assistance None Manual Transfer Assist (Other) X1 Patient Identification Verified (Name & Yes Yes Yes ) Patient Requires Transmission-Based No No Precautions Height and Weight Body Mass Index (BMI) 37.7 37.7 37.7 BMI Classification Obese Obese Obese Vital Signs Temperature (97.8 F-99.1 F) 97.7 F L 96.6 F L 97.8 F Temperature Source Temporal Temporal Temporal Pulse Rate (60-100) 74 67 65 Pulse Location Monitor Monitor Monitor Respiratory Rate (12-18) 18 18 18 Respiratory rate source Observation Observation Observation Oxygen Delivery Method Room Air Blood Pressure (90/60-120/80) 162/37 H 149/60 H 152/43 H Blood Pressure Mean (mm Hg) 78 89 79 Source Monitor Monitor Monitor Position Semi-Fowlers Blood Pressure Location Left Arm History Since Last Visit- (Skip if this is Patient's initial visit) Have you changed medications since your No No No last visit? Any new allergies or adverse reactions No No No Had a fall/change in ADL's that may No No No increase risk of falls Signs or symptoms of abuse and/or No No No neglect since last visit Have you been in the hospital since your No No No last visit? Has dressing in place as prescribed Yes Yes Yes Has compression in place as prescribed Yes Yes No Has offloadiing in place as prescribed N/A Yes N/A Experienced any changes in pain level or No No No management Left Footwear Regular Shoe Regular Shoe Right Footwear Regular Shoe Regular Shoe Pain Scale: 0-10 Numeric Is Patient Pain Free? Yes Yes Yes WC - Nurse 1 - General Ulcer Measurement Start: 02/21/24 14:21 Freq: Status: Active Protocol: Activity Type Activity Date Activity User E-sign Co-sign Detail Recorded Client Recorded Date Recorded By Document 02/21/24 14:24 DL [id number] 02/21/24 14:34 DL Document 03/06/24 14:29 DL [id number] 03/06/24 14:39 DL Document 03/20/24 14:08 KW [id number] 03/20/24 14:29 KW 02/21/24 03/06/24 03/20/24 14:24 14:29 14:08 Wound Center Nurse 1 #9 RLE post cluster -Current Size (cm) - Length 4.6 54.8 4 -Current Size (cm) - Width 2.5 2.8 2.5 -Current Size (cm) - Depth 0.1 0.1 0.1 -Total Square Cm 11.50 153.44 10.0 -Date of Last Picture (Recall this 03/20/24 field) -Exudate Amt Medium Medium Small -Exudate Type Serosanguineous Serosanguineous Serosanguineous -Wound Margin Distinct, Distinct, Distinct, Outline Outline Outline Attached Attached Attached -Granulation Amt Large (67-100%) Large (67-100%) Large (67-100%) -Granulation Quality Red Red [place] -Necrosis Amt Small (1-33%) Small (1-33%) Small (1-33%) -Necrotic Tissue Type Adherent Slough Adherent Slough Adherent Slough -Structure Exposed N/A N/A -Texture (Maryann-wound Skin Appearance) Scarring Scarring Assessed -Moisture (Maryann-wound Skin Appearance) No Abnormality Dry/Scaly Assessed -Color (Maryann-wound Skin Appearance) No Abnormality Hemosiderin Assessed Staining -Temperature (Maryann-wound Skin No Abnormality No Abnormality No Abnormality Appearance) (Pt Warm) (Pt Warm) (Pt Warm) -Tenderness on Palpation (Maryann-wound No Skin Appearance) -Ulcer Cleansing Soap and Water Soap and Water Soap and Water -Foul Odor after Cleansing No No No -Anesthetic Used 5% Lidocaine 5% Lidocaine 5% Lidocaine Gel Gel Gel Right Calf (cm) 36.4 37 Right Ankle (cm) 22 22 Left Calf (cm) 356 36.5 Left Ankle (cm) 21.2 21.5 WC - Nurse 2 - General Ulcer CM Notes Start: 02/21/24 14:21 Freq: Status: Active Protocol: Activity Type Activity Date Activity User E-sign Co-sign Detail Recorded Client Recorded Date Recorded By Document 02/21/24 14:39 [id number] 02/21/24 14:48 Document 03/06/24 15:22 [id number] 03/06/24 15:26 GM Document 03/20/24 14:32 [id number] 03/20/24 14:35 02/21/24 03/06/24 03/20/24 14:39 15:22 14:32 Wound Center Nurse 2 #9 RLE post cluster -Time 14:46 15:22 14:33 -Correct Patient Yes Yes Yes -Correct Side, Site, Position Yes Yes Yes -Correct Procedure Yes Yes Yes -Procedure Performed Yes Yes Yes -Type of Procedure Debridement Debridement Debridement -Clinical Debridement Subcutaneous Subcutaneous Subcutaneous -Tissue Removed Subcutaneous Subcutaneous Subcutaneous -Post Debridement (cm) - Length 7.5 6.5 3.7 -Post Debridement (cm) - Width 3.9 2.3 1.8 -Post Debridement (cm) - Depth 0.1 0.1 0.2 -Total Square (Post) (cm) 29.25 14.95 6.66 -Area of Debridement (cm) - Length 7.5 6.5 3.7 -Area of Debridement (cm) - Width 3.9 2.3 1.8 -Total Square (Area) (cm) 29.25 14.95 6.66 -Tunneling No No -Undermining/Tunneling No No -Circular Undermining No No -Wound/Ulcer Outcome Not Healed Not Healed Not Healed -Ulcer Cleansing Rinsed/ Rinsed/ Rinsed/ Irrigated with Irrigated with Irrigated with Saline Saline Saline -Foul Odor after Cleansing No No No -Bioengineered Tissue No No No -Bleeding Controlled with Pressure Pressure Pressure -Treatment Response Procedure Procedure Procedure Tolerated Well Tolerated Well Tolerated Well -Debridement - Subq, 1st 20sq cm Yes Yes Yes -Debridement, SubQ, ea addt'l 20sq cm 1 or part thereof Pain Scale: 0-10 Numeric Is Patient Pain Free? Yes Yes Yes WC - Nurse 3 - General Ulcer D/C NN Start: 02/21/24 14:21 Freq: Status: Active Protocol: Activity Type Activity Date Activity User E-sign Co-sign Detail Recorded Client Recorded Date Recorded By Document 02/21/24 15:09 [facility] [id number] 02/21/24 15:10 [facility] Document 03/06/24 15:43 [facility] [id number] 03/06/24 15:44 [facility] Document 03/20/24 15:13 SD [id number] 03/20/24 15:16 SD 02/21/24 03/06/24 03/20/24 15:09 15:43 15:13 Wound Care Center Nurse 3 #9 RLE post cluster -Ulcer Cleansing Rinsed/ Rinsed/ Soap and Water Irrigated with Irrigated with Saline Saline -Foul Odor after Cleansing No No -Primary Dressing Applied Promogran Promogran Nelsy Matter -Other Dressing abd abd lotion and abd -Primary Dressing Covered/Secured with Dry Gauze & Dry Gauze & Dry Gauze, Roll Gauze, Roll Gauze, Secured with Secured with Secured with Tape Tape Tape -Promogran 1 -Promogran Nelsy Matter 1 1 ESTER -Multi-Layered Wrap Application Multi-Layer Multi-Layer Multi-Layer Comp - Bilat ($ Comp - Bilat ($ Comp - Bilat ($ ) ) ) Treatment Response Procedure Tolerated Well Pain Scale: 0-10 Numeric Is Patient Pain Free? Yes Yes Yes WC - Visit Discharge Discharge Condition Stable Stable Stable Ambulatory Status Ambulatory, Ambulatory, Walker Walker Walker Transportation assisted living facility Medication Reconcilliation completed & No provided to patient/care provider Clinical Summary of Care Provided Yes Notes: pt complaining of lower legs itching. 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 For wound care: Continue to apply lightly moistened Nelsy to the wound bed and cover with foam border dressing. Then apply bilateral 3M wraps for compression. With dressing/wrap changes, wash the leg with soap and water and pat gently to dry. Change the dressings/wraps twice weekly. She completed antibiotic regimen. BMP showed no adverse effects on her kidneys. No signs of recurrent infection. She is again encouraged to elevate her legs at all times of rest. I also strongly advise placing a pillow under the calf to reduce pressure to the area of the wound when elevating legs and sleeping, will make a note on her orders so hopefully SNF staff can help increase compliance with this. Supplementation with Jerry or Ensure is also recommended. She will return to see me in 1 week, sooner as needed.
== END 2024-03-20 23:59 | disposition home or self-care (01) ==
LOC: WC 14:15
PROVIDERS: PCP Family Medicine; Referring Provider Family Medicine; Visit Provider Physician Assistant
DX: I83.012 Varicose veins of right lower extremity with ulcer of calf (principal); L97.212 Non-pressure chronic ulcer of right calf with fat layer exposed; F03.90 Unspecified dementia, unspecified severity, without behavioral disturbance, psychotic disturbance, mood disturbance, and anxiety; R60.0 Localized edema; Z79.899 Other long term (current) drug therapy
CPT/HCPCS: 11042; 11045; 29581; 87070; 87075; 87077; 87186; 87205

== ENCOUNTER 2024-04-10 13:30 | Outpatient (RCR) | payer MEDICARE, SELFPAY ==
[2024-03-21 00:41] VITALS: BP 178/63; PULSE 68; RESP 16; TEMP 36; BMI 37.7
[2024-03-27 14:20] VITALS: BP 152/73; PULSE 63; RESP 18; TEMP 37; BMI 37.7
--- NOTE | 2024-03-27 14:52 | PN.PCM_ITS ---
History of Present Illness Date of Service: 03/27/24 Chief Complaint: RLE wound History of Wound: Patient is an 81-year-old female who resides at [facility]. She is referred by facility for evaluation and management of right lower extremity wound which has been ongoing for an indeterminate amount of time. Patient cannot say and we did not receive any paperwork/information from the facility. She is well known to me as I have seen her here her in the past for similar wounds in approximately the same location most recently from 01/2023 to 06/2023. At her last appointment here in 06/2023, her calf wounds had healed completely and she was discharged with recommendation of continued 3M wraps to reduce risk of recurrence. She is not the most reliable historian with known history of dementia and some confusion noted here today. She is not sure when or how this wound started. She does not recall a specific injury. She reports that she has had compression wraps on her LLE but not on her RLE for unclear reasons. She does admit that she spends a lot of time sitting at a table coloring during the day with her legs hanging down. She also sleeps in a chair and is not sure she is always elevating her legs. She is not diabetic. She does not smoke. She is ambulatory and denies claudication type symptoms. She does have bilateral lower extremity edema, seems to be fairly well controlled with compression today. The wound on her R posterolateral calf is superficial with serous drainage. There is no significant erythema, appreciable warmth, excessive tenderness, foul odor, focal swelling/fluctuance/induration. Denies N/V, F/C. Subjective Subjective Her wound continues to improve. She feels that the dressings continue to be consistently well applied now at [facility]. She denies any new or worsening pain. She has not had any nausea, vomiting, fevers, chills. Objective Data Objective Data Vital Signs: Vital Signs Temp Pulse Resp BP O2 Del Method 98.6 F 63 18 152/73 H Room Air 03/27/24 14:20 03/27/24 14:20 03/27/24 14:20 03/27/24 14:20 03/27/24 14:20 Oxygen Delivery Method Room Air Weight: 150 lb 11.094 oz Body Mass Index (BMI) 37.7 Charges/Coding Procedures Integumentary 111xxx-113xx: [id number] Otilia subq tissue 20 sq cm/< Physical Exam Const alert, oriented x3 and no apparent distress Orientation / Consciousness: confused Resp normal respiratory effort, normal air movement, no retractions and no use of accessory muscles Effort and Inspection: able to speak in complete sentences; Negative for stridor or audible wheezes Extremity Extremity Narrative: Bilateral lower extremity edema 1+ Skin Wounds: wounds noted Wound Narrative: R posterolateral calf wound cluster significantly improved in size from last visit, superficial, pink well-bleeding base, moderate adherent slough, serous drainage. No significant surrounding erythema, warmth, focal swelling, foul odor. Neuro oriented x3, CN's II-XII intact bilaterally, moves all extremities and no focal motor deficits Psych Appearance: grossly normal Attitude: calm Debridement Note Debridement Note Wound debrided: R posterior calf Laterality: Right Type of Debridement: Excisional debridement Anesthesia Used: 5% Lidocaine Gel Depth: Down to and including healthy tissue and in the subcutaneous layer Percentage of wound debrided: 100 Instrument Used: 5mm curette Tissue Removed: slough Severity: Fat Layer Exposed Amount of bleeding with debridement: Mild Bleeding Controlled with: Pressure Patient tolerated procedure: Patient tolerated procedure well Post-Debridement Measurements and Additional Note: Post-Debridement Measurements/Treatment - Nurse 1 - General Ulcer Assessment Start: 03/27/24 14:20 Freq: Status: Active Protocol: STACIA Activity Type Activity Date Activity User E-sign Co-sign Detail Recorded Client Recorded Date Recorded By Document 03/27/24 14:20 KW [id number] 03/27/24 14:35 KW 03/27/24 14:20 - Today's Visit Information Type of service Follow-up Visit (Physician/[employer]SEMBLER ) Arrival Mode Ambulatory, Walker Patient Identification Verified (Name & Yes ) Height and Weight Body Mass Index (BMI) 37.7 BMI Classification Obese Vital Signs Temperature (97.8 F-99.1 F) 98.6 F Temperature Source Temporal Pulse Rate (60-100) 63 Pulse Location Monitor Respiratory Rate (12-18) 18 Respiratory rate source Observation Oxygen Delivery Method Room Air Blood Pressure (90/60-120/80) 152/73 H Blood Pressure Mean (mm Hg) 99 Source Monitor Position Semi-Fowlers Blood Pressure Location Left Forearm History Since Last Visit- (Skip if this is Patient's initial visit) Have you changed medications since your No last visit? Any new allergies or adverse reactions No Had a fall/change in ADL's that may No increase risk of falls Signs or symptoms of abuse and/or No neglect since last visit Have you been in the hospital since your No last visit? Has dressing in place as prescribed Yes Has compression in place as prescribed Yes Has offloadiing in place as prescribed Yes Experienced any changes in pain level or No management Left Footwear Regular Shoe Right Footwear Regular Shoe Pain Scale: 0-10 Numeric Is Patient Pain Free? Yes WC - Nurse 1 - General Ulcer Measurement Start: 03/27/24 14:20 Freq: Status: Active Protocol: Activity Type Activity Date Activity User E-sign Co-sign Detail Recorded Client Recorded Date Recorded By Document 03/27/24 14:20 KW [id number] 03/27/24 14:35 KW 03/27/24 14:20 Wound Center Nurse 1 #9 RLE post cluster -Current Size (cm) - Length 4 -Current Size (cm) - Width 1.8 -Current Size (cm) - Depth 0.2 -Total Square Cm 7.2 -Exudate Amt Small -Exudate Type Serosanguineous -Wound Margin Distinct, Outline Attached -Granulation Amt Small (1-33%) -Granulation Quality [place] -Necrosis Amt Large (67-100%) -Necrotic Tissue Type Adherent Slough -Texture (Maryann-wound Skin Appearance) Assessed -Moisture (Maryann-wound Skin Appearance) Assessed,Dry/ Scaly -Color (Maryann-wound Skin Appearance) Assessed -Temperature (Maryann-wound Skin No Abnormality Appearance) (Pt Warm) -Tenderness on Palpation (Maryann-wound No Skin Appearance) -Ulcer Cleansing Soap and Water -Foul Odor after Cleansing No -Anesthetic Used 5% Lidocaine Gel Right Calf (cm) 37.2 Right Ankle (cm) 23 Left Calf (cm) 36.2 Left Ankle (cm) 22.5 WC - Nurse 2 - General Ulcer CM Notes Start: 03/27/24 14:20 Freq: Status: Active Protocol: Activity Type Activity Date Activity User E-sign Co-sign Detail Recorded Client Recorded Date Recorded By Document 03/27/24 14:45 [id number] 03/27/24 14:49 03/27/24 14:45 Wound Center Nurse 2 #9 RLE post cluster -Time 14:45 -Correct Patient Yes -Correct Side, Site, Position Yes -Correct Procedure Yes -Procedure Performed Yes -Type of Procedure Debridement -Clinical Debridement Subcutaneous -Tissue Removed Subcutaneous -Post Debridement (cm) - Length 2.7 -Post Debridement (cm) - Width 1.6 -Post Debridement (cm) - Depth 0.2 -Total Square (Post) (cm) 4.32 -Area of Debridement (cm) - Length 2.7 -Area of Debridement (cm) - Width 1.6 -Total Square (Area) (cm) 4.32 -Tunneling No -Undermining/Tunneling No -Circular Undermining No -Wound/Ulcer Outcome Not Healed -Ulcer Cleansing Rinsed/ Irrigated with Saline -Foul Odor after Cleansing No -Bioengineered Tissue No -Bleeding Controlled with Pressure -Treatment Response Procedure Tolerated Well -Debridement - Subq, 1st 20sq cm Yes Pain Scale: 0-10 Numeric Is Patient Pain Free? 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 For wound care: Continue to apply lightly moistened Nelsy to the wound bed and cover with foam border dressing. Then apply bilateral 3M wraps for compression. With dressing/wrap changes, wash the leg with soap and water and pat gently to dry. Change the dressings/wraps twice weekly. No signs of recurrent infection. She is again encouraged to elevate her legs at all times of rest. I also strongly advise placing a pillow under the calf to reduce pressure to the area of the wound when elevating legs and sleeping, will make a note on her orders so hopefully SNF staff can help increase compliance with this. Supplementation with Jerry or Ensure is also recommended. She will return to see me in 1 week, sooner as needed.
[2024-04-03 14:01] VITALS: BP 156/53; PULSE 70; RESP 18; TEMP 36.2; BMI 37.7
--- NOTE | 2024-04-03 15:17 | PN.PCM_ITS ---
History of Present Illness Date of Service: 04/03/24 Chief Complaint: RLE wound History of Wound: Patient is an 81-year-old female who resides at [facility]. She is referred by facility for evaluation and management of right lower extremity wound which has been ongoing for an indeterminate amount of time. Patient cannot say and we did not receive any paperwork/information from the facility. She is well known to me as I have seen her here her in the past for similar wounds in approximately the same location most recently from 01/2023 to 06/2023. At her last appointment here in 06/2023, her calf wounds had healed completely and she was discharged with recommendation of continued 3M wraps to reduce risk of recurrence. She is not the most reliable historian with known history of dementia and some confusion noted here today. She is not sure when or how this wound started. She does not recall a specific injury. She reports that she has had compression wraps on her LLE but not on her RLE for unclear reasons. She does admit that she spends a lot of time sitting at a table coloring during the day with her legs hanging down. She also sleeps in a chair and is not sure she is always elevating her legs. She is not diabetic. She does not smoke. She is ambulatory and denies claudication type symptoms. She does have bilateral lower extremity edema, seems to be fairly well controlled with compression today. The wound on her R posterolateral calf is superficial with serous drainage. There is no significant erythema, appreciable warmth, excessive tenderness, foul odor, focal swelling/fluctuance/induration. Denies N/V, F/C. Subjective Subjective Her wound continues to improve. She has not had any nausea, vomiting, fevers, chills. Objective Data Objective Data Vital Signs: Vital Signs Temp Pulse Resp BP O2 Del Method 97.2 F L 70 18 156/53 H Room Air 04/03/24 14:01 04/03/24 14:01 04/03/24 14:01 04/03/24 14:01 03/27/24 14:20 Oxygen Delivery Method Room Air Weight: 150 lb 11.094 oz Body Mass Index (BMI) 37.7 Charges/Coding Procedures Integumentary 111xxx-113xx: 07236 Otilia subq tissue 20 sq cm/< Physical Exam Const alert, oriented x3 and no apparent distress Orientation / Consciousness: confused Resp normal respiratory effort, normal air movement, no retractions and no use of accessory muscles Effort and Inspection: able to speak in complete sentences; Negative for stridor or audible wheezes Extremity Extremity Narrative: Bilateral lower extremity edema 1+ Skin Wounds: wounds noted Wound Narrative: R posterolateral calf wound cluster significantly improved in size from last visit, superficial, pink well-bleeding base, moderate adherent slough, serous drainage. No significant surrounding erythema, warmth, focal swelling, foul odor. Neuro oriented x3, CN's II-XII intact bilaterally, moves all extremities and no focal motor deficits Psych Appearance: grossly normal Attitude: calm Debridement Note Debridement Note Wound debrided: R posterior calf Laterality: Right Type of Debridement: Excisional debridement Anesthesia Used: 5% Lidocaine Gel Depth: Down to and including healthy tissue and in the subcutaneous layer Percentage of wound debrided: 100 Instrument Used: 5mm curette Tissue Removed: slough Severity: Fat Layer Exposed Amount of bleeding with debridement: Mild Bleeding Controlled with: Pressure Patient tolerated procedure: Patient tolerated procedure well Post-Debridement Measurements and Additional Note: Post-Debridement Measurements/Treatment - Nurse 1 - General Ulcer Assessment Start: 03/27/24 14:20 Freq: Status: Active Protocol: STACIA Activity Type Activity Date Activity User E-sign Co-sign Detail Recorded Client Recorded Date Recorded By Document 03/27/24 14:20 KW [id number] 03/27/24 14:35 KW Document 04/03/24 14:01 DL [id number] 04/03/24 14:09 DL 03/27/24 04/03/24 14:20 14:01 - Today's Visit Information Type of service Follow-up Visit Follow-up Visit (Physician/DISASSEMBLER PRODUCT (Physician/DISASSEMBLER PRODUCT ) ) Arrival Mode Ambulatory, Ambulatory, Walker Walker Transfer Assistance Manual Transfer Assist (Other) x1 Patient Identification Verified (Name & Yes Yes ) Patient Requires Transmission-Based No Precautions Height and Weight Body Mass Index (BMI) 37.7 37.7 BMI Classification Obese Obese Vital Signs Temperature (97.8 F-99.1 F) 98.6 F 97.2 F L Temperature Source Temporal Temporal Pulse Rate (60-100) 63 70 Pulse Location Monitor Monitor Respiratory Rate (12-18) 18 18 Respiratory rate source Observation Observation Oxygen Delivery Method Room Air Blood Pressure (90/60-120/80) 152/73 H 156/53 H Blood Pressure Mean (mm Hg) 99 87 Source Monitor Monitor Position Semi-Fowlers Blood Pressure Location Left Forearm History Since Last Visit- (Skip if this is Patient's initial visit) Have you changed medications since your No No last visit? Any new allergies or adverse reactions No No Had a fall/change in ADL's that may No No increase risk of falls Signs or symptoms of abuse and/or No No neglect since last visit Have you been in the hospital since your No No last visit? Has dressing in place as prescribed Yes Yes Has compression in place as prescribed Yes Yes Has offloadiing in place as prescribed Yes Yes Experienced any changes in pain level or No No management Left Footwear Regular Shoe Right Footwear Regular Shoe Pain Scale: 0-10 Numeric Is Patient Pain Free? Yes Yes WC - Nurse 1 - General Ulcer Measurement Start: 03/27/24 14:20 Freq: Status: Active Protocol: Activity Type Activity Date Activity User E-sign Co-sign Detail Recorded Client Recorded Date Recorded By Document 03/27/24 14:20 KW [id number] 03/27/24 14:35 KW Document 04/03/24 14:01 DL [id number] 04/03/24 14:09 DL 03/27/24 04/03/24 14:20 14:01 Wound Center Nurse 1 #9 RLE post cluster -Combined with other wound No -Current Size (cm) - Length 4 2.1 -Current Size (cm) - Width 1.8 1.3 -Current Size (cm) - Depth 0.2 0.1 -Total Square Cm 7.2 2.73 -Epithelialization Small 1-33% -Tunneling No -Undermining/Tunneling No -Circular Undermining No -Exudate Amt Small Medium -Exudate Type Serosanguineous Serosanguineous -Wound Margin Distinct, Distinct, Outline Outline Attached Attached -Granulation Amt Small (1-33%) None Present (0 %) -Granulation Quality [place] -Slough/Fibrin Yes -Necrosis Amt Large (67-100%) Large (67-100%) -Necrotic Tissue Type Adherent Slough Adherent Slough -Texture (Maryann-wound Skin Appearance) Assessed Assessed, Scarring -Moisture (Maryann-wound Skin Appearance) Assessed,Dry/ Assessed Scaly -Color (Maryann-wound Skin Appearance) Assessed Assessed -Temperature (Maryann-wound Skin No Abnormality No Abnormality Appearance) (Pt Warm) (Pt Warm) -Tenderness on Palpation (Maryann-wound No Yes Skin Appearance) -Ulcer Cleansing Soap and Water Soap and Water -Foul Odor after Cleansing No No -Anesthetic Used 5% Lidocaine 5% Lidocaine Gel Gel Lower Limb Edema Present Yes Right Calf (cm) 37.2 36.3 Right Ankle (cm) 23 21.6 Left Calf (cm) 36.2 36.7 Left Ankle (cm) 22.5 21.5 - Nurse 2 - General Ulcer CM Notes Start: 03/27/24 14:20 Freq: Status: Active Protocol: Activity Type Activity Date Activity User E-sign Co-sign Detail Recorded Client Recorded Date Recorded By Document 03/27/24 14:45 [id number] 03/27/24 14:49 Document 04/03/24 14:21 [id number] 04/03/24 14:22 03/27/24 04/03/24 14:45 14:21 Wound Center Nurse 2 #9 RLE post cluster -Time 14:45 14:21 -Correct Patient Yes Yes -Correct Side, Site, Position Yes Yes -Correct Procedure Yes Yes -Procedure Performed Yes Yes -Type of Procedure Debridement Debridement -Clinical Debridement Subcutaneous Subcutaneous -Tissue Removed Subcutaneous Subcutaneous -Post Debridement (cm) - Length 2.7 2.3 -Post Debridement (cm) - Width 1.6 1.0 -Post Debridement (cm) - Depth 0.2 0.2 -Total Square (Post) (cm) 4.32 2.30 -Area of Debridement (cm) - Length 2.7 2.3 -Area of Debridement (cm) - Width 1.6 1.0 -Total Square (Area) (cm) 4.32 2.30 -Tunneling No No -Undermining/Tunneling No No -Circular Undermining No -Wound/Ulcer Outcome Not Healed Not Healed -Ulcer Cleansing Rinsed/ Rinsed/ Irrigated with Irrigated with Saline Saline -Foul Odor after Cleansing No No -Bioengineered Tissue No No -Bleeding Controlled with Pressure Pressure -Treatment Response Procedure Procedure Tolerated Well Tolerated Well -Debridement - Subq, 1st 20sq cm Yes Yes Pain Scale: 0-10 Numeric Is Patient Pain Free? Yes Yes - Nurse 3 - General Ulcer D/C NN Start: 03/27/24 14:20 Freq: Status: Active Protocol: Activity Type Activity Date Activity User E-sign Co-sign Detail Recorded Client Recorded Date Recorded By Document 03/27/24 14:55 DL [id number] 03/27/24 14:56 DL Document 04/03/24 14:37 KW [id number] 04/03/24 14:37 KW 03/27/24 04/03/24 14:55 14:37 Wound Care Center Nurse 3 #9 RLE post cluster -Ulcer Cleansing Rinsed/ Irrigated with Saline -Foul Odor after Cleansing No -Primary Dressing Applied Promogran Promogran Nelsy Matter Nelsy Matter -Primary Dressing Covered/Secured with Dry Gauze & Dry Gauze Roll Gauze, Secured with Tape -Other Covering ABD -Promogran Nelsy Matter 1 1 ESTER -Multi-Layered Wrap Application Multi-Layer Multi-Layer Comp - Bilat ($ Comp - Bilat ($ ) ) Treatment Response Procedure Tolerated Well Pain Scale: 0-10 Numeric Is Patient Pain Free? 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 For wound care: Continue to apply lightly moistened Nelsy to the wound bed and cover with foam border dressing. Then apply bilateral 3M wraps for compression. With dressing/wrap changes, wash the leg with soap and water and pat gently to dry. Change the dressings/wraps twice weekly. No signs of recurrent infection. She is again encouraged to elevate her legs at all times of rest. I also strongly advise placing a pillow under the calf to reduce pressure to the area of the wound when elevating legs and sleeping, will make a note on her orders so hopefully SNF staff can help increase compliance with this. Supplementation with Jerry or Ensure is also recommended. She will return to see me in 1 week, sooner as needed.
[2024-04-10 13:43] VITALS: BP 157/71; PULSE 64; RESP 14; TEMP 36.4; BMI 37.7
--- NOTE | 2024-04-10 17:34 | PN.PCM_ITS ---
History of Present Illness Date of Service: 04/10/24 Chief Complaint: RLE wound History of Wound: Patient is an 81-year-old female who resides at [facility]. She is referred by facility for evaluation and management of right lower extremity wound which has been ongoing for an indeterminate amount of time. Patient cannot say and we did not receive any paperwork/information from the facility. She is well known to me as I have seen her here her in the past for similar wounds in approximately the same location most recently from 01/2023 to 06/2023. At her last appointment here in 06/2023, her calf wounds had healed completely and she was discharged with recommendation of continued 3M wraps to reduce risk of recurrence. She is not the most reliable historian with known history of dementia and some confusion noted here today. She is not sure when or how this wound started. She does not recall a specific injury. She reports that she has had compression wraps on her LLE but not on her RLE for unclear reasons. She does admit that she spends a lot of time sitting at a table coloring during the day with her legs hanging down. She also sleeps in a chair and is not sure she is always elevating her legs. She is not diabetic. She does not smoke. She is ambulatory and denies claudication type symptoms. She does have bilateral lower extremity edema, seems to be fairly well controlled with compression today. The wound on her R posterolateral calf is superficial with serous drainage. There is no significant erythema, appreciable warmth, excessive tenderness, foul odor, focal swelling/fluctuance/induration. Denies N/V, F/C. Subjective Subjective Patient reports to doing well over the last week. No new concerns or complaints. Objective Data Objective Data Vital Signs: Vital Signs Temp Pulse Resp BP O2 Del Method 97.6 F L 64 14 157/71 H Room Air 04/10/24 13:43 04/10/24 13:43 04/10/24 13:43 04/10/24 13:43 03/27/24 14:20 Oxygen Delivery Method Room Air Weight: 150 lb 11.094 oz Body Mass Index (BMI) 37.7 Charges/Coding Procedures Integumentary 111xxx-113xx: [id number] Otilia subq tissue 20 sq cm/< Physical Exam Const alert, oriented x3 and no apparent distress Orientation / Consciousness: confused Resp normal respiratory effort, normal air movement, no retractions and no use of accessory muscles Effort and Inspection: able to speak in complete sentences; Negative for stridor or audible wheezes Extremity Extremity Narrative: Bilateral lower extremity edema 1+ Skin Wounds: wounds noted Wound Narrative: R posterolateral calf wound cluster significantly improved in size from last visit, superficial, pink well-bleeding base, moderate adherent slough, serous drainage. No significant surrounding erythema, warmth, focal swelling, foul odor. Neuro oriented x3, CN's II-XII intact bilaterally, moves all extremities and no focal motor deficits Psych Appearance: grossly normal Attitude: calm Debridement Note Debridement Note Wound debrided: R posterior calf Laterality: Right Type of Debridement: Excisional debridement Anesthesia Used: 5% Lidocaine Gel Depth: Down to and including healthy tissue and in the subcutaneous layer Percentage of wound debrided: 100 Instrument Used: 5mm curette Tissue Removed: slough Severity: Fat Layer Exposed Amount of bleeding with debridement: Mild Bleeding Controlled with: Pressure Patient tolerated procedure: Patient tolerated procedure well Post-Debridement Measurements and Additional Note: Post-Debridement Measurements/Treatment - Nurse 1 - General Ulcer Assessment Start: 03/27/24 14:20 Freq: Status: Active Protocol: STACIA Activity Type Activity Date Activity User E-sign Co-sign Detail Recorded Client Recorded Date Recorded By Document 03/27/24 14:20 KW [id number] 03/27/24 14:35 KW Document 04/03/24 14:01 DL [id number] 04/03/24 14:09 DL Document 04/10/24 13:43 ML [id number] 04/10/24 13:57 ML 03/27/24 04/03/24 04/10/24 14:20 14:01 13:43 - Today's Visit Information Type of service Follow-up Visit Follow-up Visit Follow-up Visit (Physician/HEAVY EQUIPMENT SUPERVISOR (Physician/HEAVY EQUIPMENT SUPERVISOR (Physician/HEAVY EQUIPMENT SUPERVISOR ) ) ) Arrival Mode Ambulatory, Ambulatory, Ambulatory, Walker Walker Walker Transfer Assistance Manual None Transfer Assist (Other) x1 Patient Identification Verified (Name & Yes Yes Yes ) Patient Requires Transmission-Based No No Precautions Height and Weight Body Mass Index (BMI) 37.7 37.7 37.7 BMI Classification Obese Obese Obese Vital Signs Temperature (97.8 F-99.1 F) 98.6 F 97.2 F L 97.6 F L Temperature Source Temporal Temporal Temporal Pulse Rate (60-100) 63 70 64 Pulse Location Monitor Monitor Monitor Respiratory Rate (12-18) 18 18 14 Respiratory rate source Observation Observation Observation Oxygen Delivery Method Room Air Blood Pressure (90/60-120/80) 152/73 H 156/53 H 157/71 H Blood Pressure Mean (mm Hg) 99 87 99 Source Monitor Monitor Monitor Position Semi-Fowlers Sitting Blood Pressure Location Left Forearm Left Arm History Since Last Visit- (Skip if this is Patient's initial visit) Have you changed medications since your No No No last visit? Any new allergies or adverse reactions No No No Had a fall/change in ADL's that may No No No increase risk of falls Signs or symptoms of abuse and/or No No No neglect since last visit Have you been in the hospital since your No No No last visit? Has dressing in place as prescribed Yes Yes Yes Has compression in place as prescribed Yes Yes N/A Has offloadiing in place as prescribed Yes Yes N/A Experienced any changes in pain level or No No No management Left Footwear Regular Shoe Right Footwear Regular Shoe Pain Scale: 0-10 Numeric Is Patient Pain Free? Yes Yes Yes WC - Nurse 1 - General Ulcer Measurement Start: 03/27/24 14:20 Freq: Status: Active Protocol: Activity Type Activity Date Activity User E-sign Co-sign Detail Recorded Client Recorded Date Recorded By Document 03/27/24 14:20 KW [id number] 03/27/24 14:35 KW Document 04/03/24 14:01 DL [id number] 04/03/24 14:09 DL Document 04/10/24 13:43 ML [id number] 04/10/24 13:57 ML 03/27/24 04/03/24 04/10/24 14:20 14:01 13:43 Wound Center Nurse 1 #9 RLE post cluster -Combined with other wound No -Current Size (cm) - Length 4 2.1 2.2 -Current Size (cm) - Width 1.8 1.3 1 -Current Size (cm) - Depth 0.2 0.1 0.1 -Total Square Cm 7.2 2.73 2.2 -Epithelialization Small 1-33% -Tunneling No -Undermining/Tunneling No -Circular Undermining No -Exudate Amt Small Medium Small -Exudate Type Serosanguineous Serosanguineous -Wound Margin Distinct, Distinct, Distinct, Outline Outline Outline Attached Attached Attached -Granulation Amt Small (1-33%) None Present (0 Medium (34-66%) %) -Granulation Quality Story -Slough/Fibrin Yes No -Necrosis Amt Large (67-100%) Large (67-100%) None Present (0 %) -Necrotic Tissue Type Adherent Slough Adherent Slough -Texture (Maryann-wound Skin Appearance) Assessed Assessed, Assessed Scarring -Moisture (Maryann-wound Skin Appearance) Assessed,Dry/ Assessed Assessed Scaly -Color (Maryann-wound Skin Appearance) Assessed Assessed Assessed -Temperature (Maryann-wound Skin No Abnormality No Abnormality No Abnormality Appearance) (Pt Warm) (Pt Warm) (Pt Warm) -Tenderness on Palpation (Maryann-wound No Yes No Skin Appearance) -Ulcer Cleansing Soap and Water Soap and Water Soap and Water -Foul Odor after Cleansing No No No -Anesthetic Used 5% Lidocaine 5% Lidocaine 5% Lidocaine Gel Gel Gel Lower Limb Edema Present Yes Right Calf (cm) 37.2 36.3 35 Right Ankle (cm) 23 21.6 22 Left Calf (cm) 36.2 36.7 34 Left Ankle (cm) 22.5 21.5 22.5 WC - Nurse 2 - General Ulcer CM Notes Start: 03/27/24 14:20 Freq: Status: Active Protocol: Activity Type Activity Date Activity User E-sign Co-sign Detail Recorded Client Recorded Date Recorded By Document 03/27/24 14:45 [id number] 03/27/24 14:49 Document 04/03/24 14:21 [id number] 04/03/24 14:22 Document 04/10/24 14:16 [id number] 04/10/24 14:17 03/27/24 04/03/24 04/10/24 14:45 14:21 14:16 Wound Center Nurse 2 #9 RLE post cluster -Time 14:45 14:21 14:17 -Correct Patient Yes Yes Yes -Correct Side, Site, Position Yes Yes Yes -Correct Procedure Yes Yes Yes -Procedure Performed Yes Yes Yes -Type of Procedure Debridement Debridement Debridement -Clinical Debridement Subcutaneous Subcutaneous Subcutaneous -Tissue Removed Subcutaneous Subcutaneous Subcutaneous -Post Debridement (cm) - Length 2.7 2.3 0.4 -Post Debridement (cm) - Width 1.6 1.0 0.3 -Post Debridement (cm) - Depth 0.2 0.2 0.1 -Total Square (Post) (cm) 4.32 2.30 0.12 -Area of Debridement (cm) - Length 2.7 2.3 0.4 -Area of Debridement (cm) - Width 1.6 1.0 0.3 -Total Square (Area) (cm) 4.32 2.30 0.12 -Tunneling No No No -Undermining/Tunneling No No No -Circular Undermining No No -Wound/Ulcer Outcome Not Healed Not Healed Not Healed -Ulcer Cleansing Rinsed/ Rinsed/ Rinsed/ Irrigated with Irrigated with Irrigated with Saline Saline Saline -Foul Odor after Cleansing No No No -Bioengineered Tissue No No No -Bleeding Controlled with Pressure Pressure Pressure -Treatment Response Procedure Procedure Procedure Tolerated Well Tolerated Well Tolerated Well -Debridement - Subq, 1st 20sq cm Yes Yes Yes Pain Scale: 0-10 Numeric Is Patient Pain Free? Yes Yes Yes WC - Nurse 3 - General Ulcer D/C NN Start: 03/27/24 14:20 Freq: Status: Active Protocol: Activity Type Activity Date Activity User E-sign Co-sign Detail Recorded Client Recorded Date Recorded By Document 03/27/24 14:55 DL [id number] 03/27/24 14:56 DL Document 04/03/24 14:37 KW [id number] 04/03/24 14:37 KW Document 04/10/24 14:24 KW [id number] 04/10/24 14:24 KW 03/27/24 04/03/24 04/10/24 14:55 14:37 14:24 Wound Care Center Nurse 3 #9 RLE post cluster -Ulcer Cleansing Rinsed/ Irrigated with Saline -Foul Odor after Cleansing No -Primary Dressing Applied Promogran Promogran Promogran Nelsy Matter Nelsy Matter Nelsy Matter -Primary Dressing Covered/Secured with Dry Gauze & Dry Gauze Dry Gauze & Roll Gauze, Roll Gauze, Secured with Secured with Tape Tape -Other Covering ABD -Promogran Nelsy Matter 1 1 1 ESTER -Multi-Layered Wrap Application Multi-Layer Multi-Layer Multi-Layer Comp - Bilat ($ Comp - Bilat ($ Comp - Bilat ($ ) ) ) Treatment Response Procedure Tolerated Well Pain Scale: 0-10 Numeric Is Patient Pain Free? 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 For wound care: Continue to apply lightly moistened Nelsy to the wound bed and cover with foam border dressing. Then apply bilateral 3M wraps for compression. With dressing/wrap changes, wash the leg with soap and water and pat gently to dry. Change the dressings/wraps twice weekly. No signs of recurrent infection. She is again encouraged to elevate her legs at all times of rest. I also strongly advise placing a pillow under the calf to reduce pressure to the area of the wound when elevating legs and sleeping, will make a note on her orders so hopefully SNF staff can help increase compliance with this. Supplementation with Jerry or Ensure is also recommended. Next week is Thanksgiving so we will plan for her to return in 2 weeks. If it continues at the current rate, expect her wound to be healed at that time.
== END 2024-04-19 23:59 | disposition home or self-care (01) ==
LOC: WC 13:30
PROVIDERS: PCP Family Medicine; Referring Provider Family Medicine; Visit Provider Physician Assistant
DX: I83.012 Varicose veins of right lower extremity with ulcer of calf (principal); L97.212 Non-pressure chronic ulcer of right calf with fat layer exposed; F03.90 Unspecified dementia, unspecified severity, without behavioral disturbance, psychotic disturbance, mood disturbance, and anxiety; I87.2 Venous insufficiency (chronic) (peripheral); R60.0 Localized edema; Z79.899 Other long term (current) drug therapy
CPT/HCPCS: 11042; 29581

== ENCOUNTER 2024-04-24 13:57 | Outpatient (RCR) | payer MEDICARE, SELFPAY ==
[2024-04-20 00:26] VITALS: BP 178/63; PULSE 68; RESP 16; TEMP 36; BMI 37.7
[2024-04-24 13:56] VITALS: BP 156/59; PULSE 75; RESP 18; BMI 37.7
--- NOTE | 2024-04-25 07:18 | PN.PCM_ITS ---
History of Present Illness Date of Service: 04/24/24 Chief Complaint: RLE wound History of Wound: Patient is an 81-year-old female who resides at [facility]. She is referred by facility for evaluation and management of right lower extremity wound which has been ongoing for an indeterminate amount of time. Patient cannot say and we did not receive any paperwork/information from the facility. She is well known to me as I have seen her here her in the past for similar wounds in approximately the same location most recently from 01/2023 to 06/2023. At her last appointment here in 06/2023, her calf wounds had healed completely and she was discharged with recommendation of continued 3M wraps to reduce risk of recurrence. She is not the most reliable historian with known history of dementia and some confusion noted here today. She is not sure when or how this wound started. She does not recall a specific injury. She reports that she has had compression wraps on her LLE but not on her RLE for unclear reasons. She does admit that she spends a lot of time sitting at a table coloring during the day with her legs hanging down. She also sleeps in a chair and is not sure she is always elevating her legs. She is not diabetic. She does not smoke. She is ambulatory and denies claudication type symptoms. She does have bilateral lower extremity edema, seems to be fairly well controlled with compression today. The wound on her R posterolateral calf is superficial with serous drainage. There is no significant erythema, appreciable warmth, excessive tenderness, foul odor, focal swelling/fluctuance/induration. Denies N/V, F/C. Subjective Subjective Her wounds are healed this week. Objective Data Objective Data Vital Signs: Vital Signs Temp Pulse Resp BP O2 Del Method 96.8 F L 75 18 156/59 H Room Air 04/20/24 00:26 04/24/24 13:56 04/24/24 13:56 04/24/24 13:56 04/24/24 13:56 Oxygen Delivery Method Room Air Weight: 150 lb 11.094 oz Body Mass Index (BMI) 37.7 Charges/Coding Visit Charges Office Visits / Consults: [id number] OV L3 Est 20min Physical Exam Const alert, oriented x3 and no apparent distress Orientation / Consciousness: confused Resp normal respiratory effort, normal air movement, no retractions and no use of accessory muscles Effort and Inspection: able to speak in complete sentences; Negative for stridor or audible wheezes Extremity Extremity Narrative: Bilateral lower extremity edema 1+ Skin Wounds: wounds noted Wound Narrative: R posterolateral calf wound cluster is fully epithelialized today. Neuro oriented x3, CN's II-XII intact bilaterally, moves all extremities and no focal motor deficits Psych Appearance: grossly normal Attitude: calm Debridement Note Debridement Note No debridement was completed: No debridement was completed today Post-Debridement Measurements and Additional Note: Post-Debridement Measurements/Treatment - Nurse 1 - General Ulcer Assessment Start: 04/24/24 13:56 Freq: Status: Active Protocol: STACIA Activity Type Activity Date Activity User E-sign Co-sign Detail Recorded Client Recorded Date Recorded By Document 04/24/24 13:56 [email or web address] [id number] 04/24/24 14:07 KW 04/24/24 13:56 WC - Today's Visit Information Type of service Follow-up Visit (Physician/RESEARCH RECRUITER ) Arrival Mode Ambulatory, Walker Patient Identification Verified (Name & Yes ) Height and Weight Body Mass Index (BMI) 37.7 BMI Classification Obese Vital Signs Pulse Rate (60-100) 75 Pulse Location Monitor Respiratory Rate (12-18) 18 Respiratory rate source Observation Oxygen Delivery Method Room Air Blood Pressure (90/60-120/80) 156/59 H Blood Pressure Mean (mm Hg) 91 Source Monitor Position Semi-Fowlers Blood Pressure Location Left Forearm History Since Last Visit- (Skip if this is Patient's initial visit) Have you changed medications since your No last visit? Any new allergies or adverse reactions No Had a fall/change in ADL's that may No increase risk of falls Signs or symptoms of abuse and/or No neglect since last visit Have you been in the hospital since your No last visit? Has dressing in place as prescribed Yes Has compression in place as prescribed Yes Has offloadiing in place as prescribed N/A Experienced any changes in pain level or No management Left Footwear Regular Shoe Right Footwear Regular Shoe Pain Scale: 0-10 Numeric Is Patient Pain Free? Yes NIRU - Nurse 1 - General Ulcer Measurement Start: 04/24/24 13:56 Freq: Status: Active Protocol: Activity Type Activity Date Activity User E-sign Co-sign Detail Recorded Client Recorded Date Recorded By Document 04/24/24 13:56 [id number] 04/24/24 14:07 04/24/24 13:56 Wound Center Nurse 1 #9 RLE post cluster -Current Size (cm) - Length 0 -Current Size (cm) - Width 0 -Current Size (cm) - Depth 0 -Total Square Cm 0 -Epithelialization Large 67-100% -Texture (Maryann-wound Skin Appearance) Assessed -Moisture (Maryann-wound Skin Appearance) Assessed,Dry/ Scaly -Color (Maryann-wound Skin Appearance) Assessed -Temperature (Maryann-wound Skin No Abnormality Appearance) (Pt Warm) -Tenderness on Palpation (Maryann-wound No Skin Appearance) -Ulcer Cleansing Soap and Water -Foul Odor after Cleansing No Right Calf (cm) 36 Right Ankle (cm) 21.2 Left Calf (cm) 35 Left Ankle (cm) 21 - Nurse 2 - General Ulcer CM Notes Start: 04/24/24 13:56 Freq: Status: Active Protocol: Activity Type Activity Date Activity User E-sign Co-sign Detail Recorded Client Recorded Date Recorded By Document 04/24/24 14:48 [id number] 04/24/24 14:49 04/24/24 14:48 Wound Center Nurse 2 #9 RLE post cluster -Time 14:48 -Correct Patient Yes -Correct Side, Site, Position Yes -Correct Procedure No -Procedure Performed No -Tunneling No -Undermining/Tunneling No -Circular Undermining No -Wound/Ulcer Outcome Healed- Epithelialized -Foul Odor after Cleansing No -Bioengineered Tissue No -Bleeding Controlled with NA -Debridement - Open, 1st 20sq cm No -Debridement - Subq, 1st 20sq cm No -Debridement - Muscle / Fascia, 1st No 20sq cm -Debridement - Bone, 1st 20sq cm No Pain Scale: 0-10 Numeric Is Patient Pain Free? Yes - Nurse 3 - General Ulcer D/C NN Start: 04/24/24 13:56 Freq: Status: Active Protocol: Activity Type Activity Date Activity User E-sign Co-sign Detail Recorded Client Recorded Date Recorded By Document 04/24/24 15:06 [facility] [id number] 04/24/24 15:07 [facility] 04/24/24 15:06 Wound Care Center Nurse 3 #9 RLE post cluster -Primary Dressing Applied Promogran Nelsy Matter -Other Dressing sent w/ ecf staff on 04/14 -Promogran Nelsy Matter 1 -Wound Comment(s) lotion only to healed area today, then 3m wraps ester BLE -Multi-Layered Wrap Application Multi-Layer Comp - Bilat ($ ) -Other applied today ESTER -Multi-Layered Wrap Application Multi-Layer Comp - Bilat ($ ) -Other sent 2 3m kits home w/ ecf on 04/14/24;; not applied today Treatment Response Procedure Tolerated Well Pain Scale: 0-10 Numeric Is Patient Pain Free? 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 I do advise continuation of 3M wraps at her facility for ongoing management of her edema to reduce risk of wound recurrence. In the past, when I have seen her and discharged with alternative compression options she has returned with recurrent wounds; she seems to do very well with 3M wraps. She is discharged from the wound center today. Return as needed.
--- NOTE | 2024-04-25 11:25 | WC ---
PHOTO 04/24/24 RIGHT POST LE(H)
== END 2024-05-16 10:05 | disposition home or self-care (01) ==
LOC: WC 13:57
PROVIDERS: PCP Family Medicine; Referring Provider Family Medicine; Visit Provider Physician Assistant
DX: Z09 Encounter for follow-up examination after completed treatment for conditions other than malignant neoplasm (principal); F03.90 Unspecified dementia, unspecified severity, without behavioral disturbance, psychotic disturbance, mood disturbance, and anxiety; R60.0 Localized edema; Z79.899 Other long term (current) drug therapy
CPT/HCPCS: 29581; 99213; G0463

== ENCOUNTER 2024-05-12 20:52 | Emergency (ER) | payer MEDICARE, SELFPAY ==
[2024-05-12 20:53] VITALS: BP 129/64; PULSE 70; RESP 18; TEMP 36.8; O2SAT 94; BMI 48.4
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
--- NOTE | 2024-05-12 22:20 | CT_ITS ---
INDICATION: fall EXAMINATION: CT BRAIN - CT Head or Brain W/O Contrast Injection TECHNIQUE: Multiple axial images were obtained of the head without intravenous contrast. The protocol utilizes one or more of the following dose reduction techniques: automated exposure control, adjustment of mA and/or kV according to patient size,and/or use of iterative reconstruction technique. IV Contrast dosage and agent: None. RADIATION DOSAGE (If Supplied By Facility): CTDIvol = ( 44.99 ) mGy, DLP = ( 745.49 ) mGycm COMPARISON: Prior study dated: 01/31/2023 FINDINGS: BRAIN: No acute bleed. No edema. Mild decreased attenuation in the periventricular white matter bilaterally. Carlton-white matter differentiation is maintained. Arterial calcifications. VENTRICLES AND SULCI: The ventricles are not dilated. The sulci are prominent. EXTRA-AXIAL: No hemorrhage, fluid collection, or mass. CALVARIUM / SKULL BASE: Unremarkable. FACE/SINUSES: Unremarkable. Calcifications in the right globe unchanged, likely postsurgical changes. SOFT TISSUES: Unremarkable. CT/Brain/Head without Contrast IMPRESSION: No acute abnormality. Mild chronic microvascular ischemic disease. Electronically Signed: Audrey Diaz MD at 22:38 EST ,
--- NOTE | 2024-05-12 22:20 | CT_ITS ---
INDICATION: fall EXAMINATION: CT CERVICAL SPINE - CT Spine Cervical W/O Contrast Injection TECHNIQUE: Helically acquired images were obtained of the cervical spine. 2D reformatted images were reviewed. The protocol utilizes one or more of the following dose reduction techniques: automated exposure control, adjustment of mA and/or kV according to patient size,and/or use of iterative reconstruction technique. IV Contrast dosage and agent: None. RADIATION DOSAGE (If Supplied By Facility): CTDIvol = ( 29.64 ) mGy, DLP = ( 597.65 ) mGycm COMPARISON: Prior study dated: 11/08/2022 FINDINGS: ALIGNMENT: Minimal anterior subluxation C3 on C4, not significantly changed compared to the prior. Straightening of the normal curvature. MINERALIZATION: Normal. VERTEBRAL BODIES: No fracture or acute abnormality. DISC SPACES: Disc space narrowing with osteophytes most pronounced C4-C7. POSTERIOR ELEMENTS: Unremarkable. SPINAL CANAL: Decreased AP diameter secondary to posterior disc/osteophytes, most pronounced at C4-5 and C6-7. PARASPINAL SOFT TISSUES: Unremarkable. Carotid artery calcifications greater on the right. OTHER: Prominent lymph nodes in the soft tissues. CT/Spine Cervical without Contras IMPRESSION: No evidence of fracture or traumatic subluxation. Minimal anterolisthesis at C3-4 likely secondary to degenerative changes. Degenerative changes with multilevel mild central canal stenosis. If there are any neurologic findings, MRI may be helpful for further evaluation. Straightening of the normal curve may be due to positioning or muscle spasm. Electronically Signed: Audrey Diaz MD at 22:56 EST ,
--- NOTE | 2024-05-12 22:30 | RAD_ITS ---
INDICATION: fall right hip pain. EXAMINATION/TECHNIQUE: X-RAY - XR Hip Unilateral with Pelvis when performed; 2-3 Views COMPARISON: Prior study dated: Pelvis and left hip x-rays 11/08/2022 FINDINGS: No fracture demonstrated. Femoral heads are normal contour. No dislocation at the hips. Joint space narrowing and osteophytes at both hips. RAD/HIP, UNI W/ Pelvis 2-3 Views IMPRESSION: No evidence of fracture. Electronically Signed: Audrey Diaz MD at 23:04 EST ,
[2024-05-12 22:53] VITALS: BP 123/59; PULSE 70; RESP 18; O2SAT 95
[2024-05-13] VITALS: BP 125/48; PULSE 69; RESP 16; O2SAT 96
[2024-05-13 00:06] VITALS: BP 123/59; PULSE 68; RESP 18; TEMP 36.7; O2SAT 95
[2024-05-13 02:00] VITALS: BP 155/60; PULSE 63; RESP 18; O2SAT 93
== END 2024-05-13 03:53 | disposition home or self-care (01) ==
PROVIDERS: Emergency Provider Emergency Medicine; PCP Family Medicine; Visit Provider Emergency Medicine
DX: M25.551 Pain in right hip (principal); F03.90 Unspecified dementia, unspecified severity, without behavioral disturbance, psychotic disturbance, mood disturbance, and anxiety; I10 Essential (primary) hypertension; W18.39XA Other fall on same level, initial encounter; Y92.89 Other specified places as the place of occurrence of the external cause; Z79.899 Other long term (current) drug therapy
CPT/HCPCS: 70450; 72125; 73502; 99284

== ENCOUNTER → 2024-05-29 05:00 | Outpatient (REF) | payer MEDICARE, SELFPAY ==
[2024-05-29 10:12] LABS: Anion Gap 7 (5-15); BUN 24 mg/dL (7-18); BUN/Creat Ratio 23.1 RATIO (10-20); Calcium,Total 8.7 mg/dL (8.5-10.1); Chloride 105 mmol/L (98-107); Creatinine, Serum 1.04 mg/dL (0.55-1.02); EST Glomerular Filtration Rate 54 mL/min (>60); Est Glom Filt Rate - Afr Amer 65 mL/min (>60); Glucose 189 mg/dL (74-106); Magnesium 1.9 mg/dL (1.6-2.6); Potassium 3.8 mmol/L (3.5-5.1); Sodium Level 140 mmol/L (136-145)
[2024-05-30 04:07] LABS: Prealbumin 16 mg/dL (9-32)
== END ==
LOC: OLS.BROOKB 05:00
PROVIDERS: PCP Family Medicine; Visit Provider Family Medicine
DX: M62.81 Muscle weakness (generalized) (principal); L03.115 Cellulitis of right lower limb; I10 Essential (primary) hypertension
CPT/HCPCS: 36415; 80048; 83735; 84134

== ENCOUNTER 2024-06-20 10:47 | Emergency (ER) | payer MEDICARE, SELFPAY ==
[2024-06-20 10:48] VITALS: BP 151/70; PULSE 72; RESP 18; TEMP 36.6; O2SAT 94
[2024-06-20 11:11] VITALS: BMI 48.9
--- NOTE | 2024-06-20 11:50 | EX.ED.DYSGE1 ---
HPI <VALERIE Garcia - Last Filed: 06/20/24 12:22> History of Present Illness Chief Complaint: Lower Extremity Injury Narrative Narrative: Patient is an 83-year-old female with history of leg wounds, venous ulcers, dementia who is alert and orient x 1 presenting to the [facility] for a positive DVT study to the left lower leg. The patient has been seeing wound care secondary to having wounds to the lower legs. Patient had a DVT study 9:10 AM today, and it showed acute deep vein thrombosis is noted in the left CBC and at the proximal and midline. It is not compressible and dilated. If he distals compressible, p.o. P vein is compressible spontaneous phasic component and demonstrates normal augmentation. Secondary to this finding, she was referred to the ER. [facility] <VALERIE Garcia - Last Filed: 06/20/24 12:22> [facility] Medical History (Updated 06/20/24 @ 12:11 by VALERIE Garcia) Pressure ulcer of left buttock, stage 2 Pressure ulcer of right buttock, stage 2 Pressure injury of sacral region, stage 1 Cognitive communication disorder Muscle weakness Cellulitis and abscess of right leg HTN (hypertension) Glaucoma Dementia with psychotic disturbance Dementia Obesity CLL (chronic lymphocytic leukemia) Home Medications ?Medication ?Instructions ?Recorded ?Last Taken ?Type acetaminophen 325 mg tablet 650 mg PO Q6H PRN Pain 09/15/22 Unknown History bisacodyl 10 mg rectal suppository 10 mg UT DAILY PRN Constipation 09/15/22 Unknown History furosemide 20 mg tablet 40 mg PO DAILY 09/15/22 Unknown History hydroxyzine HCl 25 mg tablet 25 mg PO TID PRN ITCHING/ANXIETY 09/15/22 Unknown History indapamide 2.5 mg tablet 2.5 mg PO DAILY 09/15/22 Unknown History latanoprost 0.005 % eye drops 1 drp EACH EYE DAILY 09/15/22 Unknown History nystatin 100,000 unit/gram topical 1 applic topical BID PRN Rash 09/15/22 Unknown History powder ondansetron 4 mg disintegrating 4 mg PO Q6H PRN Nausea 09/15/22 Unknown History tablet potassium chloride 20 mEq 20 meq PO DAILY 09/15/22 Unknown History tablet,extended release sodium phosphates 19 gram-7 118 ml UT DAILY PRN Constipation 09/15/22 Unknown History gram/118 mL enema (Fleet Enema) venlafaxine 37.5 mg tablet 75 mg PO DAILY 09/15/22 Unknown History apixaban 5 mg (74 tabs) tablets in See Rx Instructions PO .COMPLEX 06/20/24 Unknown Rx a dose pack (Eliquis DVT-PE Treat #74 tabs 30D Start) Allergy/AdvReac Type Severity Reaction Status Date / Time timolol Allergy Other Verified 06/20/24 10:47 Social History Smoking Status: Never smoker ROS <VALERIE Garcia - Last Filed: 06/20/24 12:22> ROS ED ROS Narrative Constitutional: Negative for fever, chills, weight loss, weakness Eyes: Negative for vision loss, vision change, double vision. Positive for drainage to both eyes ENT: Negative for any sore throat, ear pain, congestion Cardiovascular: Negative for any chest pain, tightness, palpitations Respiratory: Negative for any cough, sputum production, hemoptysis, dyspnea, dyspnea on exertion, orthopnea Gastrointestinal: Negative for any abdominal pain, nausea, vomiting, diarrhea, constipation, blood in stool, blood in vomit : Negative for any urinary frequency, dysuria, retention, blood in urine Muscle skeletal: Negative for any neck pain, back pain. Positive for left leg pain Neurological: Negative for any headache, syncope, dizziness Skin: Negative for any rashes, itching, abrasions, lacerations Psychiatric: Negative for any depression, anxiety, stress, suicidal ideation, homicidal ideation Hematologic: Negative for any excessive bruising, easy bleeding EXAM <VALERIE Garcia - Last Filed: 06/20/24 12:22> Physical Exam Narrative Exam Narrative: Vital signs reviewed. HEET: Head normocephalic atraumatic, TMs clear bilaterally. Posterior pharynx is clear, moist mucous membranes. Nares clear bilaterally. Patient does have some drainage to bilateral eyes. Slight red conjunctiva. This is consistent with conjunctivitis however patient is currently on treatment for this. Neck: Supple with no lymphadenopathy or tenderness. No signs of meningismus. Cardiac: Regular rate and rhythm no murmurs gallops or rubs, equal peripheral pulses bilaterally. Respiratory: Lungs clear to auscultation bilaterally. No chest tenderness. Abdomen: Soft, nontender, nondistended. No abdominal bruit or pulsatile masses. No hepatosplenomegaly Extremities: Patient does have wounds to bilateral lower legs have these are covered with dressings. The patient's left leg was positive for DVT. +2 pedal pulse. The extremity is warm with no neurofocal symptoms. Neuro: Cranial nerves II through XII intact, no focal neurological deficits. Skin: Clean dry and intact with no rash, purpura, petechiae, vesicles or pustules. Backs/flank: No CVA tenderness, no midline spinal tenderness, no deformity. Psych: Normal mood and affect. No SI, HI or acute psychosis. Const Vital Signs: 06/20/24 10:48 06/20/24 12:54 Temperature 97.9 F 98.6 F Temperature Source Oral Pulse Rate 72 78 Respiratory Rate 18 16 Blood Pressure 151/70 H 134/78 H Blood Pressure Mean 97 96 Pulse Ox 94 99 Oxygen Delivery Method Room Air <Kavon Pena MD - Last Filed: 06/20/24 17:47> Physical Exam Const Vital Signs: 06/20/24 10:48 06/20/24 12:54 Temperature 97.9 F 98.6 F Temperature Source Oral Pulse Rate 72 78 Respiratory Rate 18 16 Blood Pressure 151/70 H 134/78 H Blood Pressure Mean 97 96 Pulse Ox 94 99 Oxygen Delivery Method Room Air MDM <VALERIE Garcia - Last Filed: 06/20/24 12:22> MDM Radiography Diagnostic Testing: Clinical Impression(s) from Imaging Studies Chest X-Ray 06/20/24 12:00 IMPRESSION: Prominent degenerative changes of the shoulders noted, right worse than left. At least mild thoracic spine degenerative changes are seen. Lungs appear clear of acute disease. No pleural effusion or pneumothorax is evident. The cardiomediastinal silhouette is within the normal range. No evidence of acute cardiopulmonary disease. Reading Location: [id number] Treatment and Re-Evaluation :: Differential diagnosis includes however is not limited to: DVT, cellulitis, community-acquired pneumonia, other respiratory virus, venous stasis. Patient appears generally well, vital signs are stable, patient is nontoxic-appearing. Presenting to the emerged department with confirmation of a DVT of the left CFV and FV. Patient is currently not on any blood thinning medication. I will reach out to the patient's PCP at [place] to see if they would like me to start Eliquis. I will also perform a chest x-ray, patient does have a cough for the last 2 weeks. This will be to rule out any pneumonia. All radiologic examinations were read, reviewed by the emergency department attending. From these reads, a plan of care will be put in place. I spoke with the patient's PCP Dr. Prashanth Caicedo. I explained to him the patient did not be diagnosed with DVT the left leg. I spoke with about my plan of starting the patient on Eliquis. He agrees with the treatment plan. Patient replaced on Eliquis the starter dose pack. I did send to the patient's pharmacy. Chest x-ray was normal and did not show any consolidation, pleural effusion. Patient will continue the eyedrops from her doctor for the conjunctivitis. All questions were answered, patient stable for discharge. <Kavon Pena MD - Last Filed: 06/20/24 17:47> [facility] MDM Narrative Medical decision making narrative: Dr. Pena: I have personally performed a face to face assessment of the patient and have reviewed the SWAPNIL Note. I performed a substantive portion of the visit including all aspects of the following. My gandara findings include: History is outpatient DVT study positive for DVT of left lower extremity. History and physical mildly limited secondary to dementia. Left leg pain. Exam is afebrile. Vital signs noted. Nontoxic-appearing. Diffuse tenderness to palpation left lower extremity. Cardiovascular examination regular rate and rhythm. Lungs clear to auscultation bilaterally. Medical Decision Making: Chest x-ray obtained and reviewed for cough, no evidence of infiltrate. I reviewed the radiology report which confirms my independent interpretation. Patient discussed with primary care provider. Starting Eliquis for DVT. Follow-up primary care. Discharge. Other additions or changes: [None] Radiography Chest X-Ray - ED: Read by ED Physician and Read by Radiologist Diagnostic Testing: Clinical Impression(s) from Imaging Studies Chest X-Ray 06/20/24 12:00 IMPRESSION: Prominent degenerative changes of the shoulders noted, right worse than left. At least mild thoracic spine degenerative changes are seen. Lungs appear clear of acute disease. No pleural effusion or pneumothorax is evident. The cardiomediastinal silhouette is within the normal range. No evidence of acute cardiopulmonary disease. Reading Location: [address] Discharge Plan Triage Chief Complaint: Lower Extremity Injury ED Midlevel Provider: Osmar New ED Provider: Kavon Pena Dx/Rx/DC Orders Clinical Impression: Leg pain, DVT (deep venous thrombosis) Instructions: DVT Complications, DVT Tx, ED Deep Vein Thrombosis (DVT) Prescriptions: New Eliquis DVT-PE Treat 30D Start 5 mg (74 tabs) tablets,dose pack See Rx Instructions .ROUTE .COMPLEX Qty: 74 0RF Rx Instructions: orally per package directions No Action latanoprost 0.005 % Drops 1 drp EACH EYE DAILY acetaminophen 325 mg Tablet 650 mg PO Q6H PRN (Reason: Pain) indapamide 2.5 mg Tablet 2.5 mg PO DAILY bisacodyl 10 mg Suppository 10 mg UT DAILY PRN (Reason: Constipation) venlafaxine 37.5 mg Tablet 75 mg PO DAILY Fleet Enema 19-7 gram/118 mL Enema 118 ml UT DAILY PRN (Reason: Constipation) hydroxyzine HCl 25 mg Tablet 25 mg PO TID PRN (Reason: ITCHING/ANXIETY) furosemide 20 mg Tablet 40 mg PO DAILY nystatin 100,000 unit/gram Powder 1 applic TOPICAL BID PRN (Reason: Rash) ondansetron 4 mg Tablet,Disintegrating 4 mg PO Q6H PRN (Reason: Nausea) potassium chloride 20 mEq Tablet Extended Release 20 meq PO DAILY Primary Care Provider: Christina Modi Referrals: Christina Modi MD [Primary Care Provider] - Prashanth Caicedo DO [Non-Staff] - Print Language: Vietnamese Disposition Disposition: Home, Self Care Discharge Date/Time: 06/20/24 12:57
--- NOTE | 2024-06-20 11:57 | NURSING ---
PAGED FOR DR JAMES CHUA [phone]
--- NOTE | 2024-06-20 12:00 | RAD_ITS ---
PROCEDURE: CHEST 1 VIEW (PORTABLE) REASON FOR EXAM: Cough. TECHNIQUE: AP portable upright chest. COMPARISON: Chest x-ray of 01/31/2023.. RAD/Chest 1 View (Portable) IMPRESSION: Prominent degenerative changes of the shoulders noted, right worse than left. At least mild thoracic spine degenerative changes are seen. Lungs appear clear of acute disease. No pleural effusion or pneumothorax is evident. The cardiomediastinal silhouette is within the normal range. No evidence of acute cardiopulmonary disease. Reading Location: [id number]
[2024-06-20] MEDS: APIXABAN 5 MG TABLET 10 MG PO (12:24)
[2024-06-20 12:54] VITALS: BP 134/78; PULSE 78; RESP 16; TEMP 37; O2SAT 99
== END 2024-06-20 12:57 | disposition home or self-care (01) ==
PROVIDERS: Emergency Provider Emergency Medicine; PCP Family Medicine; Visit Provider Emergency Medicine
DX: I82.4Y2 Acute embolism and thrombosis of unspecified deep veins of left proximal lower extremity (principal); I82.412 Acute embolism and thrombosis of left femoral vein; I10 Essential (primary) hypertension; Z79.899 Other long term (current) drug therapy
CPT/HCPCS: 71045; 99283

== ENCOUNTER 2024-06-25 12:15 | Outpatient (RCR) | payer MEDICARE, SELFPAY ==
[2024-06-04 11:19] VITALS: RESP 16; TEMP 36
--- NOTE | 2024-06-04 12:57 | HP.PCM_ITS ---
History of Present Illness Date of Service: 06/04/24 Chief Complaint: RLE wound History of Wound: Patient is an 83-year-old female who resides at [facility]. She is referred by facility for evaluation and management of right lower extremity wound which has been ongoing for an indeterminate amount of time. Patient cannot say and we did not receive any paperwork/information from the facility. Patient is well-known to the facility. She does get help with aides at her assisted living facility. She is not the most reliable historian with known history of dementia and some confusion noted here today. She is not sure when or how this wound started. She does not recall a specific injury. She did have compression wraps donned to the bilateral lower extremity. Most of her pain is to the right heel area. She is not diabetic. She does not smoke. She is ambulatory and denies c laudication type symptoms. She does have bilateral lower extremity edema, seems to be fairly well controlled with compression today. The wound on her R posterolateral calf and heel is down to subcutaneous tissue with serous drainage. There is no significant erythema, appreciable warmth, excessive tenderness, foul odor, focal swelling/fluctuance/induration. Denies N/V, F/C. Progress of Wound: Mrs. Fox is a 83-year-old female presenting with her son today follow-up evaluation of bilateral leg swelling and full-thickness wounds right lower extremity. Patient lives at a assisted assisted living facility and gets care with dressing changes. She is not diabetic. She denies trauma or injury to the area. Denies constitutional symptoms. No other pedal complaints at this time. [facility] Medical History Pressure ulcer of right buttock, stage 2 Pressure ulcer of left buttock, stage 2 Pressure injury of sacral region, stage 1 Cognitive communication disorder Muscle weakness Cellulitis and abscess of right leg HTN (hypertension) Glaucoma Dementia with psychotic disturbance Dementia Obesity CLL (chronic lymphocytic leukemia) Home Medications ?Medication ?Instructions ?Recorded ?Last Taken ?Type acetaminophen 325 mg tablet 650 mg PO Q6H PRN Pain 09/15/22 Unknown History bisacodyl 10 mg rectal suppository 10 mg SD DAILY PRN Constipation 09/15/22 Unknown History furosemide 20 mg tablet 40 mg PO DAILY 09/15/22 Unknown History hydroxyzine HCl 25 mg tablet 25 mg PO TID PRN ITCHING/ANXIETY 09/15/22 Unknown History indapamide 2.5 mg tablet 2.5 mg PO DAILY 09/15/22 Unknown History latanoprost 0.005 % eye drops 1 drp EACH EYE DAILY 09/15/22 Unknown History nystatin 100,000 unit/gram topical 1 applic topical BID PRN Rash 09/15/22 Unknown History powder ondansetron 4 mg disintegrating 4 mg PO Q6H PRN Nausea 09/15/22 Unknown History tablet potassium chloride 20 mEq 20 meq PO DAILY 09/15/22 Unknown History tablet,extended release sodium phosphates 19 gram-7 118 ml SD DAILY PRN Constipation 09/15/22 Unknown History gram/118 mL enema (Fleet Enema) venlafaxine 37.5 mg tablet 75 mg PO DAILY 09/15/22 Unknown History Allergy/AdvReac Type Severity Reaction Status Date / Time timolol Allergy Other Verified 05/12/24 20:57 Social History Smoking Status: Never smoker Vital Signs Vital Signs Vital Signs: 06/04/24 11:19 Temperature 96.8 F L Temperature Source Temporal Respiratory Rate 16 Blood Pressure Source Monitor Blood Pressure Position Semi-Fowlers Blood Pressure Location Right Arm Oxygen Delivery Method Room Air Physical Exam Narrative Vascular: DP and PT pulses are palpable to bilateral extremity. CFT is brisk. Nonpitting edema appreciated to bilateral lower extremity. No erythema. Skin temperature great is warm to warm from proximal ankles to distal digit bilater al. Neurological: Light touch intact. Patient does respond to painful stimuli. Dermatological: Full-thickness ulceration to the right posterior leg measuring 1.5 x 0.9 x 0.2 cm. Right posterior leg wound is granular nature with serous drainage. No sign of infection. Right Achilles area full-thickness wound measuring 1.4 x 1.4 x 0.2 cm. Achilles tendon ulceration shows evidence of eschar with some drainage. No sign of infection. Excisional debridement down to and including subcutaneous tissue with a number 5 mm dermal curette to the right posterior leg ulceration without incident. Pre debridement measurement was 1.3 x 0.7 x 0.1 cm. Postdebridement measurement is 1.5 x 0.9 x 0.2 cm. Excisional debridement down to including subcutaneous tissue with a number 5 mm dermal curette to the right Achilles tendon ulceration without incident. Predebridement measurement was eschar. Postdebridement measurement is 1.4 x 1.4 x 0.2 cm. Musculoskeletal: Mild pain on palpation to both full-thickness ulceration. No pain with calf compression. Const alert and no apparent distress General Appearance: cooperative Orientation / Consciousness: awake Debridement Note Debridement Note Debridement Free Text: Excisional debridement down to and including subcutaneous tissue with a number 5 mm dermal curette to the right posterior leg ulceration without incident. Predebridement measurement was 1.3 x 0.7 x 0.1 cm. Postdebridement measurement is 1.5 x 0.9 x 0.2 cm. Excisional debridement down to including subcutaneous tissue with a number 5 mm dermal curette to the right Achilles tendon ulceration without incident. Predebridement measurement was eschar. Postdebridement measurement is 1.4 x 1.4 x 0.2 cm. Post-Debridement Measurements and Additional Note: Post-Debridement Measurements/Treatment WC - Nurse 1 - General Ulcer Assessment Start: 06/04/24 11:19 Freq: Status: Active Protocol: STACIA Activity Type Activity Date Activity User E-sign Co-sign Detail Recorded Client Recorded Date Recorded By Document 06/04/24 11:19 RI [id number] 06/04/24 11:31 RI 06/04/24 11:19 WC - Today's Visit Information Type of service Initial Visit Arrival Mode Ambulatory, Walker Patient Identification Verified (Name & Yes ) Vital Signs Temperature (97.8 F-99.1 F) 96.8 F L Temperature Source Temporal Pulse Location Monitor Respiratory Rate (12-18) 16 Respiratory rate source Observation Oxygen Delivery Method Room Air Source Monitor Position Semi-Fowlers Blood Pressure Location Right Arm History Since Last Visit- (Skip if this is Patient's initial visit) Left Footwear Regular Shoe Right Footwear Regular Shoe Pain Scale: 0-10 Numeric Is Patient Pain Free? Yes - Nurse 1 - General Ulcer Measurement Start: 06/04/24 11:19 Freq: Status: Active Protocol: Activity Type Activity Date Activity User E-sign Co-sign Detail Recorded Client Recorded Date Recorded By Document 06/04/24 11:19 RI [id number] 06/04/24 11:31 RI 06/04/24 11:19 Wound Center Nurse 1 #11 R INF POST CALF -Current Size (cm) - Length 0.1 -Current Size (cm) - Width 0.1 -Current Size (cm) - Depth 0.1 -Total Square Cm 0.01 -Date of Last Picture (Recall this 06/04/24 field) -Exudate Amt Small -Exudate Type Serosanguineous -Wound Margin Distinct, Outline Attached -Granulation Amt Large (67-100%) -Granulation Quality Red -Texture (Maryann-wound Skin Appearance) Assessed -Moisture (Maryann-wound Skin Appearance) Assessed -Color (Maryann-wound Skin Appearance) Assessed -Ulcer Cleansing Soap and Water -Foul Odor after Cleansing No -Anesthetic Used 5% Lidocaine Gel #12 R ACHILLES -Current Size (cm) - Length 1.6 -Current Size (cm) - Width 2 -Current Size (cm) - Depth 0.2 -Total Square Cm 3.2 -Date of Last Picture (Recall this 06/04/24 field) -Exudate Amt Small -Exudate Type Serosanguineous -Wound Margin Distinct, Outline Attached -Granulation Amt Large (67-100%) -Granulation Quality Red -Necrosis Amt Small (1-33%) -Necrotic Tissue Type Eschar -Texture (Maryann-wound Skin Appearance) Assessed -Moisture (Maryann-wound Skin Appearance) Assessed -Color (Maryann-wound Skin Appearance) Assessed, Erythema -Temperature (Maryann-wound Skin No Abnormality Appearance) (Pt Warm) -Tenderness on Palpation (Maryann-wound No Skin Appearance) -Ulcer Cleansing Soap and Water -Foul Odor after Cleansing No -Anesthetic Used 5% Lidocaine Gel #10 R SUP POST CALF -Current Size (cm) - Length 1.2 -Current Size (cm) - Width 1 -Current Size (cm) - Depth 0.1 -Total Square Cm 1.2 -Date of Last Picture (Recall this 06/04/24 field) -Exudate Amt Medium -Exudate Type Serosanguineous -Wound Margin Distinct, Outline Attached -Granulation Amt Small (1-33%) -Granulation Quality [place] -Necrosis Amt Large (67-100%) -Necrotic Tissue Type Adherent Slough -Texture (Maryann-wound Skin Appearance) Assessed -Moisture (Maryann-wound Skin Appearance) Assessed, Weeping -Color (Maryann-wound Skin Appearance) Assessed -Temperature (Maryann-wound Skin No Abnormality Appearance) (Pt Warm) -Tenderness on Palpation (Maryann-wound No Skin Appearance) -Ulcer Cleansing Soap and Water -Foul Odor after Cleansing No -Anesthetic Used 5% Lidocaine Gel Right Calf (cm) 39 Right Ankle (cm) 23.5 Left Calf (cm) 36.5 Left Ankle (cm) 21.5 WC - Nurse 2 - General Ulcer CM Notes Start: 06/04/24 11:19 Freq: Status: Active Protocol: Activity Type Activity Date Activity User E-sign Co-sign Detail Recorded Client Recorded Date Recorded By Document 06/04/24 11:56 [email or web address] [id number] 06/04/24 12:05 KATELYNN 06/04/24 11:56 Wound Center Nurse 2 #11 R INF POST CALF -Time 11:59 -Correct Patient Yes -Correct Side, Site, Position No -Correct Procedure No -Procedure Performed No -Post Debridement (cm) - Length 0 -Post Debridement (cm) - Width 0 -Post Debridement (cm) - Depth 0 -Total Square (Post) (cm) 0 -Area of Debridement (cm) - Length 0 -Area of Debridement (cm) - Width 0 -Total Square (Area) (cm) 0 -Tunneling No -Undermining/Tunneling No -Circular Undermining No -Wound/Ulcer Outcome Not Healed -Ulcer Cleansing Rinsed/ Irrigated with Saline -Foul Odor after Cleansing No -Bioengineered Tissue No -Bleeding Controlled with Pressure -Treatment Response Procedure Tolerated Well -Offloading No -Debridement - Subq, 1st 20sq cm No #12 R ACHILLES -Time 11:58 -Correct Patient Yes -Correct Side, Site, Position Yes -Correct Procedure Yes -Procedure Performed Yes -Type of Procedure Debridement -Clinical Debridement Subcutaneous -Tissue Removed Subcutaneous -Post Debridement (cm) - Length 1.4 -Post Debridement (cm) - Width 1.4 -Post Debridement (cm) - Depth 0.2 -Total Square (Post) (cm) 1.96 -Area of Debridement (cm) - Length 1.4 -Area of Debridement (cm) - Width 1.4 -Total Square (Area) (cm) 1.96 -Tunneling No -Undermining/Tunneling No -Circular Undermining No -Wound/Ulcer Outcome Not Healed -Ulcer Cleansing Rinsed/ Irrigated with Saline -Foul Odor after Cleansing No -Bioengineered Tissue No -Bleeding Controlled with Pressure -Treatment Response Procedure Tolerated Well -Offloading No -Debridement - Subq, 1st 20sq cm No #10 R SUP POST CALF -Time 12:00 -Correct Patient Yes -Correct Side, Site, Position Yes -Correct Procedure Yes -Procedure Performed Yes -Type of Procedure Debridement -Clinical Debridement Subcutaneous -Tissue Removed Subcutaneous -Post Debridement (cm) - Length 1.5 -Post Debridement (cm) - Width 0.9 -Post Debridement (cm) - Depth 0.2 -Total Square (Post) (cm) 1.35 -Area of Debridement (cm) - Length 1.5 -Area of Debridement (cm) - Width 0.9 -Total Square (Area) (cm) 1.35 -Tunneling No -Undermining/Tunneling No -Circular Undermining No -Wound/Ulcer Outcome Not Healed -Ulcer Cleansing Rinsed/ Irrigated with Saline -Foul Odor after Cleansing No -Bioengineered Tissue No -Bleeding Controlled with Pressure -Treatment Response Procedure Tolerated Well -Offloading No -Debridement - Subq, 1st 20sq cm Yes Pain Scale: 0-10 Numeric Is Patient Pain Free? Yes - Nurse 3 - General Ulcer D/C NN Start: 06/04/24 11:19 Freq: Status: Active Protocol: Activity Type Activity Date Activity User E-sign Co-sign Detail Recorded Client Recorded Date Recorded By Document 06/04/24 12:24 RB [id number] 06/04/24 12:27 RB 06/04/24 12:24 Wound Care Center Nurse 3 #12 R ACHILLES -Other Dressing HYDROGEL -Primary Dressing Covered/Secured with Dry Gauze,Dry Gauze & Roll Gauze,Secured with Tape #10 R SUP POST CALF -Other Dressing HYDROGEL -Primary Dressing Covered/Secured with Dry Gauze,Dry Gauze & Roll Gauze,Secured with Tape BILAT LE -Tubular Bandage Double Layer -Size of Tubigrip Used Size E -Size E ($) 4 Treatment Response Procedure Tolerated Well Pain Scale: 0-10 Numeric Is Patient Pain Free? Yes - Visit Discharge Discharge Condition Stable Ambulatory Status Ambulatory, Walker Transportation ASPEN Medication Reconcilliation completed & No provided to patient/care provider Clinical Summary of Care Provided Yes Assessment/Plan Assessment/Plan (1) Non-pressure chronic ulcer of other part of right lower leg with fat layer exposed: CODE(S): L97.812 - Non-pressure chronic ulcer of other part of right lower leg with fat layer exposed PLAN: Patient was examined and evaluated. All findings were discussed with the patient. All questions were answered to the patient's satisfaction. Excisional debridement down to and including subcutaneous tissue with a number 5 mm dermal curette to the right posterior leg ulceration without incident. Predebridement measurement was 1.3 x 0.7 x 0.1 cm. Postdebridement measurement is 1.5 x 0.9 x 0.2 cm. Excisional debridement down to including subcutaneous tissue with a number 5 mm dermal curette to the right Achilles tendon ulceration without incident. Predebridement measurement was eschar. Postdebridement measurement is 1.4 x 1.4 x 0.2 cm. The bilateral lower extremities were cleaned and patted dry. Saline moist gauze followed by dry sterile dressing and single-layer Tubigrip's were donned to the right lower extremity, single-layer Tubigrip donned to left lower extremity. Dressing changes were given as an order to the assisted living caregivers. We will move forward to order through the patient's insurance peripheral vascular disease as well as venous duplex studies for baseline evaluation. Follow-up at the wound care center with Dr. Sylvester in 1 week. 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
[2024-06-11 10:55] VITALS: BP 147/60; PULSE 67; RESP 16; TEMP 35.9
--- NOTE | 2024-06-11 11:58 | PN.PCM_ITS ---
History of Present Illness Date of Service: 06/11/24 Chief Complaint: RLE wound History of Wound: Patient is an 83-year-old female who resides at [facility]. She is referred by facility for evaluation and management of right lower extremity wound which has been ongoing for an indeterminate amount of time. Patient cannot say and we did not receive any paperwork/information from the facility. Patient is well-known to the facility. She does get help with aides at her assisted living facility. She is not the most reliable historian with known history of dementia and some confusion noted here today. She is not sure when or how this wound started. She does not recall a specific injury. She did have compression wraps donned to the bilateral lower extremity. Most of her pain is to the right heel area. She is not diabetic. She does not smoke. She is ambulatory and denies c laudication type symptoms. She does have bilateral lower extremity edema, seems to be fairly well controlled with compression today. The wound on her R posterolateral calf and heel is down to subcutaneous tissue with serous drainage. There is no significant erythema, appreciable warmth, excessive tenderness, foul odor, focal swelling/fluctuance/induration. Denies N/V, F/C. Progress of Wound: Mrs. Fox is a 83-year-old female presenting with her son today follow-up evaluation of bilateral leg swelling and full-thickness wounds right lower extremity. Patient lives at a assisted assisted living facility and gets care with dressing changes. She is not diabetic. She denies trauma or injury to the area. Denies constitutional symptoms. No other pedal complaints at this time. Subjective Subjective Mrs. Fox is a 83-year-old female presented wound care center today follow-up evaluation of right lower extremity full-thickness wound. She has been doing dressing changes with Santyl moist gauze dry sterile dressing and Tubigrip. She notices improvement to the wounds. She did have a fall at the assisted living and has a scrape on her anterior right leg by her knee which is stable with no sign of infection. Denies constitutional symptoms. No other pedal complaints at this time. Objective Data Objective Data Vital Signs: Vital Signs Temp Pulse Resp BP O2 Del Method 96.6 F L 67 16 147/60 H Room Air 06/11/24 10:55 06/11/24 10:55 06/11/24 10:55 06/11/24 10:55 06/11/24 10:55 Oxygen Delivery Method Room Air Physical Exam Narrative Vascular: DP and PT pulses are palpable to bilateral extremity. CFT is brisk. Nonpitting edema appreciated to bilateral lower extremity. No erythema. Skin temperature great is warm to warm from proximal ankles to distal digit bilateral. Neurological: Light touch intact. Patient does respond to painful stimuli. Dermatological: Full-thickness ulceration to the right posterior leg measuring 1.4 x 0.8 x 0.1 cm. Right posterior leg wound is granular nature with serous drainage. No sign of infection. Right Achilles area full-thickness wound measuring 0.6 x 1.1 x 0.1 cm. Achilles tendon ulceration shows evidence of eschar with some drainage. No sign of infection. Excisional debridement down to and including subcutaneous tissue with a number 5 mm dermal curette to the right posterior leg ulceration without incident. Predebridement measurement was 1.2 x 0.7 x 0.1 cm. Postdebridement measurement is 1.4 x 0.8 x 0.1 cm. Excisional debridement down to including subcutaneous tissue with a number 5 mm dermal curette to the right Achilles tendon ulceration without incident. Predebridement measurement was eschar. Postdebridement measurement is 0.6 x 1.1 x 0.1 cm. Musculoskeletal: Mild pain on palpation to both full-thickness ulceration. No pain with calf compression. Debridement Note Debridement Note Debridement Free Text: Excisional debridement down to and including subcutaneous tissue with a number 5 mm dermal curette to the right posterior leg ulceration without incident. Predebridement measurement was 1.2 x 0.7 x 0.1 cm. Postdebridement measurement is 1.4 x 0.8 x 0.1 cm. Excisional debridement down to including subcutaneous tissue with a number 5 mm dermal curette to the right Achilles tendon ulceration without incident. Predebridement measurement was eschar. Postdebridement measurement is 0.6 x 1.1 x 0.1 cm. Post-Debridement Measurements and Additional Note: Post-Debridement Measurements/Treatment NIRU - Nurse 1 - General Ulcer Assessment Start: 06/04/24 11:19 Freq: Status: Active Protocol: TIMOTHYEXT Activity Type Activity Date Activity User E-sign Co-sign Detail Recorded Client Recorded Date Recorded By Document 06/04/24 11:19 WA [id number] 06/04/24 11:31 WA Document 06/11/24 10:55 [id number] 06/11/24 11:10 06/04/24 06/11/24 11:19 10:55 - Today's Visit Information Type of service Initial Visit Follow-up Visit (Physician/BLENDER/BRAZE APPLICATOR ) Arrival Mode Ambulatory, Ambulatory, Walker Walker Patient Identification Verified (Name & Yes Yes ) Vital Signs Temperature (97.8 F-99.1 F) 96.8 F L 96.6 F L Temperature Source Temporal Oral Pulse Rate (60-100) 67 Pulse Location Monitor Monitor Respiratory Rate (12-18) 16 16 Respiratory rate source Observation Observation Oxygen Delivery Method Room Air Room Air Blood Pressure (90/60-120/80) 147/60 H Blood Pressure Mean (mm Hg) 89 Source Monitor Monitor Position Semi-Fowlers Sitting Blood Pressure Location Right Arm Left Arm History Since Last Visit- (Skip if this is Patient's initial visit) Have you changed medications since your No last visit? Any new allergies or adverse reactions No Had a fall/change in ADL's that may No increase risk of falls Signs or symptoms of abuse and/or No neglect since last visit Have you been in the hospital since your No last visit? Has dressing in place as prescribed Yes Has compression in place as prescribed Yes Experienced any changes in pain level or No management Left Footwear Regular Shoe Regular Shoe Right Footwear Regular Shoe Regular Shoe Pain Scale: 0-10 Numeric Is Patient Pain Free? Yes Yes - Nurse 1 - General Ulcer Measurement Start: 06/04/24 11:19 Freq: Status: Active Protocol: Activity Type Activity Date Activity User E-sign Co-sign Detail Recorded Client Recorded Date Recorded By Document 06/04/24 11:19 WA [id number] 06/04/24 11:31 WA Document 06/11/24 10:55 [id number] 06/11/24 11:10 06/04/24 06/11/24 11:19 10:55 Wound Center Nurse 1 #11 R INF POST CALF -Current Size (cm) - Length 0.1 -Current Size (cm) - Width 0.1 -Current Size (cm) - Depth 0.1 -Total Square Cm 0.01 -Date of Last Picture (Recall this 06/04/24 field) -Exudate Amt Small -Exudate Type Serosanguineous -Wound Margin Distinct, Outline Attached -Granulation Amt Large (67-100%) -Granulation Quality Red -Texture (Maryann-wound Skin Appearance) Assessed -Moisture (Maryann-wound Skin Appearance) Assessed -Color (Maryann-wound Skin Appearance) Assessed -Ulcer Cleansing Soap and Water -Foul Odor after Cleansing No -Anesthetic Used 5% Lidocaine Gel #13 Right Inferior Knee -Combined with other wound No -Current Size (cm) - Length 1.3 -Current Size (cm) - Width 0.9 -Current Size (cm) - Depth 0.1 -Total Square Cm 1.17 -Date of Last Picture (Recall this 06/11/24 field) -Photo Taken Yes -Epithelialization None Present -Tunneling No -Undermining/Tunneling No -Circular Undermining No -Exudate Amt None Present -Wound Margin Distinct, Outline Attached -Texture (Maryann-wound Skin Appearance) Assessed -Moisture (Maryann-wound Skin Appearance) Assessed -Color (Maryann-wound Skin Appearance) Erythema -Temperature (Maryann-wound Skin No Abnormality Appearance) (Pt Warm) -Tenderness on Palpation (Maryann-wound No Skin Appearance) -Ulcer Cleansing Soap and Water -Foul Odor after Cleansing No -Anesthetic Used 5% Lidocaine Gel #12 R ACHILLES -Current Size (cm) - Length 1.6 0.2 -Current Size (cm) - Width 2 0.2 -Current Size (cm) - Depth 0.2 0.1 -Total Square Cm 3.2 0.04 -Date of Last Picture (Recall this 06/04/24 field) -Photo Taken No -Epithelialization Small 1-33% -Tunneling No -Undermining/Tunneling No -Circular Undermining No -Exudate Amt Small Small -Exudate Type Serosanguineous Yellow/Green -Wound Margin Distinct, Distinct, Outline Outline Attached Attached -Granulation Amt Large (67-100%) Small (1-33%) -Granulation Quality Red [place] -Necrosis Amt Small (1-33%) -Necrotic Tissue Type Eschar -Texture (Maryann-wound Skin Appearance) Assessed Assessed -Moisture (Maryann-wound Skin Appearance) Assessed Assessed -Color (Maryann-wound Skin Appearance) Assessed, Assessed Erythema -Temperature (Maryann-wound Skin No Abnormality No Abnormality Appearance) (Pt Warm) (Pt Warm) -Tenderness on Palpation (Maryann-wound No Yes Skin Appearance) -Ulcer Cleansing Soap and Water Soap and Water -Foul Odor after Cleansing No No -Anesthetic Used 5% Lidocaine 5% Lidocaine Gel Gel #10 R SUP POST CALF -Current Size (cm) - Length 1.2 1.5 -Current Size (cm) - Width 1 0.5 -Current Size (cm) - Depth 0.1 0.1 -Total Square Cm 1.2 0.75 -Date of Last Picture (Recall this 06/04/24 field) -Photo Taken No -Epithelialization None Present -Tunneling No -Undermining/Tunneling No -Circular Undermining No -Change in Wound Grade/Stage No -Exudate Amt Medium Small -Exudate Type Serosanguineous Yellow/Green -Wound Margin Distinct, Distinct, Outline Outline Attached Attached -Granulation Amt Small (1-33%) Small (1-33%) -Granulation Quality [place] -Slough/Fibrin No -Necrosis Amt Large (67-100%) None Present (0 %) -Necrotic Tissue Type Adherent Slough -Texture (Maryann-wound Skin Appearance) Assessed Assessed -Moisture (Maryann-wound Skin Appearance) Assessed, Assessed Weeping -Color (Maryann-wound Skin Appearance) Assessed Assessed -Temperature (Maryann-wound Skin No Abnormality No Abnormality Appearance) (Pt Warm) (Pt Warm) -Tenderness on Palpation (Maryann-wound No Yes Skin Appearance) -Ulcer Cleansing Soap and Water Soap and Water -Foul Odor after Cleansing No No -Anesthetic Used 5% Lidocaine 5% Lidocaine Gel Gel Lower Limb Edema Present No Right Calf (cm) 39 40.0 Right Ankle (cm) 23.5 23.0 Left Calf (cm) 36.5 Left Ankle (cm) 21.5 WC - Nurse 2 - General Ulcer CM Notes Start: 06/04/24 11:19 Freq: Status: Active Protocol: Activity Type Activity Date Activity User E-sign Co-sign Detail Recorded Client Recorded Date Recorded By Document 06/04/24 11:56 JF [id number] 06/04/24 12:05 JF Document 06/11/24 11:33 DS [id number] 06/11/24 11:34 DS 06/04/24 06/11/24 11:56 11:33 Wound Center Nurse 2 #11 R INF POST CALF -Time 11:59 -Correct Patient Yes -Correct Side, Site, Position No -Correct Procedure No -Procedure Performed No -Post Debridement (cm) - Length 0 -Post Debridement (cm) - Width 0 -Post Debridement (cm) - Depth 0 -Total Square (Post) (cm) 0 -Area of Debridement (cm) - Length 0 -Area of Debridement (cm) - Width 0 -Total Square (Area) (cm) 0 -Tunneling No -Undermining/Tunneling No -Circular Undermining No -Wound/Ulcer Outcome Not Healed -Ulcer Cleansing Rinsed/ Irrigated with Saline -Foul Odor after Cleansing No -Bioengineered Tissue No -Bleeding Controlled with Pressure -Treatment Response Procedure Tolerated Well -Offloading No -Debridement - Subq, 1st 20sq cm No #13 Right Inferior Knee -Time 11:33 -Correct Patient Yes -Procedure Performed No #12 R ACHILLES -Time 11:58 11:33 -Correct Patient Yes Yes -Correct Side, Site, Position Yes Yes -Correct Procedure Yes Yes -Procedure Performed Yes Yes -Type of Procedure Debridement Debridement -Clinical Debridement Subcutaneous Subcutaneous -Tissue Removed Subcutaneous Subcutaneous -Post Debridement (cm) - Length 1.4 0.6 -Post Debridement (cm) - Width 1.4 1.1 -Post Debridement (cm) - Depth 0.2 0.1 -Total Square (Post) (cm) 1.96 0.66 -Area of Debridement (cm) - Length 1.4 0.6 -Area of Debridement (cm) - Width 1.4 1.1 -Total Square (Area) (cm) 1.96 0.66 -Tunneling No No -Undermining/Tunneling No No -Circular Undermining No No -Wound/Ulcer Outcome Not Healed Not Healed -Ulcer Cleansing Rinsed/ Rinsed/ Irrigated with Irrigated with Saline Saline -Foul Odor after Cleansing No No -Bioengineered Tissue No No -Bleeding Controlled with Pressure Pressure -Treatment Response Procedure Procedure Tolerated Well Tolerated Well -Offloading No -Debridement - Subq, 1st 20sq cm No Yes #10 R SUP POST CALF -Time 12:00 11:33 -Correct Patient Yes Yes -Correct Side, Site, Position Yes Yes -Correct Procedure Yes Yes -Procedure Performed Yes Yes -Type of Procedure Debridement Debridement -Clinical Debridement Subcutaneous Subcutaneous -Tissue Removed Subcutaneous Subcutaneous -Post Debridement (cm) - Length 1.5 1.4 -Post Debridement (cm) - Width 0.9 0.8 -Post Debridement (cm) - Depth 0.2 0.1 -Total Square (Post) (cm) 1.35 1.12 -Area of Debridement (cm) - Length 1.5 1.4 -Area of Debridement (cm) - Width 0.9 0.8 -Total Square (Area) (cm) 1.35 1.12 -Tunneling No No -Undermining/Tunneling No No -Circular Undermining No No -Wound/Ulcer Outcome Not Healed Not Healed -Ulcer Cleansing Rinsed/ Rinsed/ Irrigated with Irrigated with Saline Saline -Foul Odor after Cleansing No No -Bioengineered Tissue No No -Bleeding Controlled with Pressure Pressure -Treatment Response Procedure Procedure Tolerated Well Tolerated Well -Offloading No -Debridement - Subq, 1st 20sq cm Yes No Pain Scale: 0-10 Numeric Is Patient Pain Free? Yes Yes WC - Nurse 3 - General Ulcer D/C NN Start: 06/04/24 11:19 Freq: Status: Active Protocol: Activity Type Activity Date Activity User E-sign Co-sign Detail Recorded Client Recorded Date Recorded By Document 06/04/24 12:24 RB [id number] 06/04/24 12:27 RB Document 06/11/24 11:51 [id number] 06/11/24 11:52 06/04/24 06/11/24 12:24 11:51 Wound Care Center Nurse 3 #13 Right Inferior Knee -Ulcer Cleansing Not Cleansed -Foul Odor after Cleansing No -Primary Dressing Covered/Secured with Dry Gauze, Secured with Tape #12 R ACHILLES -Ulcer Cleansing Not Cleansed -Foul Odor after Cleansing No -Other Dressing HYDROGEL -Primary Dressing Covered/Secured with Dry Gauze,Dry Dry Gauze,Dry Gauze & Roll Gauze & Roll Gauze,Secured Gauze,Secured with Tape with Tape #10 R SUP POST CALF -Ulcer Cleansing Not Cleansed -Foul Odor after Cleansing No -Other Dressing HYDROGEL -Primary Dressing Covered/Secured with Dry Gauze,Dry Dry Gauze Gauze & Roll Gauze,Secured with Tape BILAT LE -Lotion applied to leg before No compression wrap -Tubular Bandage Double Layer Double Layer -Size of Tubigrip Used Size E Size E -Size E ($) 4 2 Treatment Response Procedure Tolerated Well Pain Scale: 0-10 Numeric Is Patient Pain Free? Yes Yes WC - Visit Discharge Discharge Condition Stable Unstable Ambulatory Status Ambulatory, Ambulatory Walker Transportation [facility] Medication Reconcilliation completed & No provided to patient/care provider Clinical Summary of Care Provided Yes Assessment/Plan Assessment/Plan (1) Non-pressure chronic ulcer of other part of right lower leg with fat layer exposed: CODE(S): L97.812 - Non-pressure chronic ulcer of other part of right lower leg with fat layer exposed PLAN: Patient was examined and evaluated. All findings were discussed with the patient. All questions were answered to the patient's satisfaction. Excisional debridement down to and including subcutaneous tissue with a number 5 mm dermal curette to the right posterior leg ulceration without incident. Predebridement measurement was 1.2 x 0.7 x 0.1 cm. Postdebridement measurement is 1.4 x 0.8 x 0.1 cm. Excisional debridement down to including subcutaneous tissue with a number 5 mm dermal curette to the right Achilles tendon ulceration without incident. Predebridement measurement was eschar. Postdebridement measurement is 0.6 x 1.1 x 0.1 cm. The bilateral lower extremities were cleaned and patted dry. Saline moist gauze followed by dry sterile dressing and single-layer Tubigrip's were donned to the right lower extremity, single-layer Tubigrip donned to left lower extremity. Dressing changes were given as an order to the assisted living caregivers. Follow-up at the wound care center with Dr. Sylvester in 1 week. (2) Non-pressure chronic ulcer of right heel and midfoot with fat layer exposed: CODE(S): L97.412 - Non-pressure chronic ulcer of right heel and midfoot with fat layer exposed
--- NOTE | 2024-06-12 09:52 | WC ---
PHOTO 06/11/24 RIGHT KNEE
--- NOTE | 2024-06-12 09:53 | WC ---
PHOTO 06/11/24 RIGHT KNEE
[2024-06-18 11:16] VITALS: BP 160/73; PULSE 80; RESP 18
--- NOTE | 2024-06-18 12:10 | HP.PCM_ITS ---
History of Present Illness Date of Service: 06/18/24 Chief Complaint: RLE wound History of Wound: Patient is an 83-year-old female who resides at [facility]. She is referred by facility for evaluation and management of right lower extremity wound which has been ongoing for an indeterminate amount of time. Patient cannot say and we did not receive any paperwork/information from the facility. Patient is well-known to the facility. She does get help with aides at her assisted living facility. She is not the most reliable historian with known history of dementia and some confusion noted here today. She is not sure when or how this wound started. She does not recall a specific injury. She did have compression wraps donned to the bilateral lower extremity. Most of her pain is to the right heel area. She is not diabetic. She does not smoke. She is ambulatory and denies c laudication type symptoms. She does have bilateral lower extremity edema, seems to be fairly well controlled with compression today. The wound on her R posterolateral calf and heel is down to subcutaneous tissue with serous drainage. There is no significant erythema, appreciable warmth, excessive tenderness, foul odor, focal swelling/fluctuance/induration. Denies N/V, F/C. Progress of Wound: Mrs. Fox is a 83-year-old female presenting with her son today follow-up evaluation of bilateral leg swelling and full-thickness wounds right lower extremity. Patient lives at a assisted assisted living facility and gets care with dressing changes. She is not diabetic. She denies trauma or injury to the area. Denies constitutional symptoms. No other pedal complaints at this time. She also complained of her buttocks hurting while they were there examining her they found that she had 2 decubitus ulcers on right and left buttocks from shearing. And needed evaluation. She is not diabetic and has dementia so she is a poor historian does live in the senior living does sit a lot in her chairs. [facility] Medical History (Updated 06/18/24 @ 12:18 by Susan Pompa NP, [employer]ARM[employer]ILANCE SAFETY EXPERT-C) Pressure ulcer of left buttock, stage 2 Pressure ulcer of right buttock, stage 2 Pressure injury of sacral region, stage 1 Cognitive communication disorder Muscle weakness Cellulitis and abscess of right leg HTN (hypertension) Glaucoma Dementia with psychotic disturbance Dementia Obesity CLL (chronic lymphocytic leukemia) Home Medications ?Medication ?Instructions ?Recorded ?Last Taken ?Type acetaminophen 325 mg tablet 650 mg PO Q6H PRN Pain 09/15/22 Unknown History bisacodyl 10 mg rectal suppository 10 mg WA DAILY PRN Constipation 09/15/22 Unknown History furosemide 20 mg tablet 40 mg PO DAILY 09/15/22 Unknown History hydroxyzine HCl 25 mg tablet 25 mg PO TID PRN ITCHING/ANXIETY 09/15/22 Unknown History indapamide 2.5 mg tablet 2.5 mg PO DAILY 09/15/22 Unknown History latanoprost 0.005 % eye drops 1 drp EACH EYE DAILY 09/15/22 Unknown History nystatin 100,000 unit/gram topical 1 applic topical BID PRN Rash 09/15/22 Unknown History powder ondansetron 4 mg disintegrating 4 mg PO Q6H PRN Nausea 09/15/22 Unknown History tablet potassium chloride 20 mEq 20 meq PO DAILY 09/15/22 Unknown History tablet,extended release sodium phosphates 19 gram-7 118 ml WA DAILY PRN Constipation 09/15/22 Unknown History gram/118 mL enema (Fleet Enema) venlafaxine 37.5 mg tablet 75 mg PO DAILY 09/15/22 Unknown History Allergy/AdvReac Type Severity Reaction Status Date / Time timolol Allergy Other Verified 05/12/24 20:57 Social History Smoking Status: Never smoker ROS Constitutional Constitutional: Reports systems reviewed and no addt'l complaints, except as documented Eyes Eyes: Reports systems reviewed and no addt'l complaints, except as documented ENT HEENT: Reports systems reviewed and no addt'l complaints, except as documented Cardiovascular Cardiovascular: Reports systems reviewed and no addt'l complaints, except as documented Respiratory/Chest Respiratory/Chest: Reports systems reviewed and no addt'l complaints, except as documented Gastrointestinal Gastrointestinal: Reports systems reviewed and no addt'l complaints, except as documented Genitourinary Genitourinary: Reports systems reviewed and no addt'l complaints, except as documented Musculoskeletal Musculoskeletal: Reports systems reviewed and no addt'l complaints, except as documented Integumentary Integumentary: Reports wounds and other Details: Open wounds right and left buttocks from shearing in the chairs from sitting so much and scooting out of the chair she has sheared off the top layer skin they are stage II. Neurologic Neurologic: Reports systems reviewed and no addt'l complaints, except as documented Psychiatric Psychiatric: Reports systems reviewed and no addt'l complaints, except as documented Endocrine Endocrinology: Reports systems reviewed and no addt'l complaints, except as documented Hematologic/Lymphatic Hematologic/Lymphatic: Reports systems reviewed and no addt'l complaints, except as documented Allergic/Immunologic Allergic/Immunologic: Reports systems reviewed and no addt'l complaints, except as documented Vital Signs Vital Signs Vital Signs: 06/18/24 11:16 Pulse Rate 80 Respiratory Rate 18 Blood Pressure 160/73 H Blood Pressure Mean 102 Blood Pressure Source Monitor Blood Pressure Position Semi-Fowlers Blood Pressure Location Left Arm Oxygen Delivery Method Room Air Physical Exam Const oriented x3 General Appearance: cooperative Exam Limitations: no limitations HEENT normocephalic Eyes PERRL General Eye: normal appearance of both eyes Neck full ROM General: normal visual inspection Resp normal respiratory effort Effort and Inspection: able to speak in complete sentences Auscultation: clear to auscultation bilaterally Cardio regular rate and regular rhythm Palpation: normal PMI Rate: regular rate Rhythm: regular rhythm Back/Spine Cervical Spine: cervical ROM normal Thoracic Spine / Upper Back: normal to inspection Lumbar Spine / Lower Back: normal to inspection Skin Wound Narrative: Wounds on her right and left buttocks from shearing stage II decubitus ulcers superficial but open painful no redness or infection noted Psych Appearance: grossly normal Speech: normal speech Thought Content: normal thought content Judgement: limited Debridement Note Debridement Note Wound debrided: Right buttocks Laterality: Right Wound Grade/Stage: Stage II Type of Debridement: Excisional debridement Anesthesia Used: 5% Lidocaine Gel Depth: Down to and including healthy tissue Percentage of wound debrided: 100 Instrument Used: 7mm curette Tissue Removed: Devitalized tissue and fibrin Severity: Fat Layer Exposed Amount of bleeding with debridement: Mild Bleeding Controlled with: Compression and gauze Patient tolerated procedure: Patient tolerated procedure well Post-Debridement Measurements and Additional Note: Post-Debridement Measurements/Treatment NIRU - Nurse 1 - General Ulcer Assessment Start: 06/04/24 11:19 Freq: Status: Active Protocol: STACIA Activity Type Activity Date Activity User E-sign Co-sign Detail Recorded Client Recorded Date Recorded By Document 06/04/24 11:19 OK [id number] 06/04/24 11:31 OK Document 06/11/24 10:55 [id number] 06/11/24 11:10 Document 06/18/24 11:16 KW [id number] 06/18/24 11:27 06/04/24 06/11/24 06/18/24 11:19 10:55 11:16 - Today's Visit Information Type of service Initial Visit Follow-up Visit Follow-up Visit (Physician/EVENT MARKETING ASSISTANT (Physician/EVENT MARKETING ASSISTANT ) ) Arrival Mode Ambulatory, Ambulatory, Ambulatory, Walker Walker Walker Patient Identification Verified (Name & Yes Yes Yes ) Vital Signs Temperature (97.8 F-99.1 F) 96.8 F L 96.6 F L Temperature Source Temporal Oral Pulse Rate (60-100) 67 80 Pulse Location Monitor Monitor Monitor Respiratory Rate (12-18) 16 16 18 Respiratory rate source Observation Observation Observation Oxygen Delivery Method Room Air Room Air Room Air Blood Pressure (90/60-120/80) 147/60 H 160/73 H Blood Pressure Mean 89 102 Source Monitor Monitor Monitor Position Semi-Fowlers Sitting Semi-Fowlers Blood Pressure Location Right Arm Left Arm Left Arm History Since Last Visit- (Skip if this is Patient's initial visit) Have you changed medications since your No No last visit? Any new allergies or adverse reactions No No Had a fall/change in ADL's that may No No increase risk of falls Signs or symptoms of abuse and/or No No neglect since last visit Have you been in the hospital since your No No last visit? Has dressing in place as prescribed Yes Yes Has compression in place as prescribed Yes Yes Has offloadiing in place as prescribed N/A Experienced any changes in pain level or No No management Left Footwear Regular Shoe Regular Shoe Regular Shoe Right Footwear Regular Shoe Regular Shoe Regular Shoe Pain Scale: 0-10 Numeric Is Patient Pain Free? Yes Yes Yes - Nurse 1 - General Ulcer Measurement Start: 06/04/24 11:19 Freq: Status: Active Protocol: Activity Type Activity Date Activity User E-sign Co-sign Detail Recorded Client Recorded Date Recorded By Document 06/04/24 11:19 OK [id number] 06/04/24 11:31 OK Document 06/11/24 10:55 [id number] 06/11/24 11:10 Document 06/18/24 11:16 KW [id number] 06/18/24 11:27 KW Document 06/18/24 12:02 RB [id number] 06/18/24 12:03 RB 06/04/24 06/11/24 06/18/24 11:19 10:55 11:16 Wound Center Nurse 1 #11 R INF POST CALF -Current Size (cm) - Length 0.1 -Current Size (cm) - Width 0.1 -Current Size (cm) - Depth 0.1 -Total Square Cm 0.01 -Date of Last Picture (Recall this 06/04/24 field) -Exudate Amt Small -Exudate Type Serosanguineous -Wound Margin Distinct, Outline Attached -Granulation Amt Large (67-100%) -Granulation Quality Red -Texture (Maryann-wound Skin Appearance) Assessed -Moisture (Maryann-wound Skin Appearance) Assessed -Color (Maryann-wound Skin Appearance) Assessed -Ulcer Cleansing Soap and Water -Foul Odor after Cleansing No -Anesthetic Used 5% Lidocaine Gel 15. RIGHT BUTTOCK CLUSTER -Combined with other wound -Current Size (cm) - Length -Current Size (cm) - Width -Current Size (cm) - Depth -Total Square Cm -Photo Taken -Tunneling -Undermining/Tunneling -Circular Undermining -Exudate Amt -Exudate Type -Wound Margin -Granulation Amt -Granulation Quality -Slough/Fibrin -Necrosis Amt -Necrotic Tissue Type -Structure Exposed -Texture (Maryann-wound Skin Appearance) -Moisture (Maryann-wound Skin Appearance) -Color (Maryann-wound Skin Appearance) -Temperature (Maryann-wound Skin Appearance) -Tenderness on Palpation (Maryann-wound Skin Appearance) -Ulcer Cleansing -Foul Odor after Cleansing 14. LEFT BUTTOCK -Combined with other wound -Current Size (cm) - Length -Current Size (cm) - Width -Current Size (cm) - Depth -Total Square Cm -Photo Taken -Tunneling -Undermining/Tunneling -Circular Undermining -Exudate Amt -Exudate Type -Wound Margin -Granulation Amt -Granulation Quality -Slough/Fibrin -Necrosis Amt -Necrotic Tissue Type -Structure Exposed -Texture (Maryann-wound Skin Appearance) -Moisture (Maryann-wound Skin Appearance) -Color (Maryann-wound Skin Appearance) -Temperature (Maryann-wound Skin Appearance) -Tenderness on Palpation (Maryann-wound Skin Appearance) -Ulcer Cleansing -Foul Odor after Cleansing #13 Right Inferior Knee -Combined with other wound No -Current Size (cm) - Length 1.3 1 -Current Size (cm) - Width 0.9 0.8 -Current Size (cm) - Depth 0.1 0.1 -Total Square Cm 1.17 0.8 -Date of Last Picture (Recall this 06/11/24 06/18/24 field) -Photo Taken Yes -Epithelialization None Present -Tunneling No -Undermining/Tunneling No -Circular Undermining No -Exudate Amt None Present None Present -Wound Margin Distinct, Outline Attached -Necrosis Amt Large (67-100%) -Necrotic Tissue Type Eschar -Texture (Maryann-wound Skin Appearance) Assessed Assessed -Moisture (Maryann-wound Skin Appearance) Assessed Assessed -Color (Maryann-wound Skin Appearance) Erythema Assessed, Erythema -Temperature (Maryann-wound Skin No Abnormality No Abnormality Appearance) (Pt Warm) (Pt Warm) -Tenderness on Palpation (Maryann-wound No No Skin Appearance) -Ulcer Cleansing Soap and Water Soap and Water -Foul Odor after Cleansing No No -Anesthetic Used 5% Lidocaine 5% Lidocaine Gel Gel #12 R ACHILLES -Current Size (cm) - Length 1.6 0.2 0.4 -Current Size (cm) - Width 2 0.2 0.7 -Current Size (cm) - Depth 0.2 0.1 0.1 -Total Square Cm 3.2 0.04 0.28 -Date of Last Picture (Recall this 06/04/24 06/18/24 field) -Photo Taken No -Epithelialization Small 1-33% -Tunneling No -Undermining/Tunneling No -Circular Undermining No -Exudate Amt Small Small Small -Exudate Type Serosanguineous Yellow/Green Serosanguineous -Wound Margin Distinct, Distinct, Distinct, Outline Outline Outline Attached Attached Attached -Granulation Amt Large (67-100%) Small (1-33%) Large (67-100%) -Granulation Quality Red [place] -Necrosis Amt Small (1-33%) Small (1-33%) -Necrotic Tissue Type Eschar Adherent Slough -Texture (Maryann-wound Skin Appearance) Assessed Assessed Assessed -Moisture (Maryann-wound Skin Appearance) Assessed Assessed Assessed -Color (Maryann-wound Skin Appearance) Assessed, Assessed Assessed Erythema -Temperature (Maryann-wound Skin No Abnormality No Abnormality No Abnormality Appearance) (Pt Warm) (Pt Warm) (Pt Warm) -Tenderness on Palpation (Maryann-wound No Yes No Skin Appearance) -Ulcer Cleansing Soap and Water Soap and Water Soap and Water -Foul Odor after Cleansing No No No -Anesthetic Used 5% Lidocaine 5% Lidocaine 5% Lidocaine Gel Gel Gel #10 R SUP POST CALF -Current Size (cm) - Length 1.2 1.5 0.8 -Current Size (cm) - Width 1 0.5 0.2 -Current Size (cm) - Depth 0.1 0.1 0.1 -Total Square Cm 1.2 0.75 0.16 -Date of Last Picture (Recall this 06/04/24 06/18/24 field) -Photo Taken No -Epithelialization None Present -Tunneling No -Undermining/Tunneling No -Circular Undermining No -Change in Wound Grade/Stage No -Exudate Amt Medium Small Small -Exudate Type Serosanguineous Yellow/Green Serosanguineous -Wound Margin Distinct, Distinct, Distinct, Outline Outline Outline Attached Attached Attached -Granulation Amt Small (1-33%) Small (1-33%) Large (67-100%) -Granulation Quality [place] -Slough/Fibrin No -Necrosis Amt Large (67-100%) None Present (0 Small (1-33%) %) -Necrotic Tissue Type Adherent Slough Adherent Slough -Texture (Maryann-wound Skin Appearance) Assessed Assessed Assessed -Moisture (Maryann-wound Skin Appearance) Assessed, Assessed Assessed Weeping -Color (Maryann-wound Skin Appearance) Assessed Assessed Assessed -Temperature (Maryann-wound Skin No Abnormality No Abnormality No Abnormality Appearance) (Pt Warm) (Pt Warm) (Pt Warm) -Tenderness on Palpation (Maryann-wound No Yes No Skin Appearance) -Ulcer Cleansing Soap and Water Soap and Water Soap and Water -Foul Odor after Cleansing No No No -Anesthetic Used 5% Lidocaine 5% Lidocaine 5% Lidocaine Gel Gel Gel Lower Limb Edema Present No Right Calf (cm) 39 40.0 36.5 Right Ankle (cm) 23.5 23.0 21.5 Left Calf (cm) 36.5 Left Ankle (cm) 21.5 06/18/24 12:02 Wound Center Nurse 1 #11 R INF POST CALF -Current Size (cm) - Length -Current Size (cm) - Width -Current Size (cm) - Depth -Total Square Cm -Date of Last Picture (Recall this field) -Exudate Amt -Exudate Type -Wound Margin -Granulation Amt -Granulation Quality -Texture (Maryann-wound Skin Appearance) -Moisture (Maryann-wound Skin Appearance) -Color (Maryann-wound Skin Appearance) -Ulcer Cleansing -Foul Odor after Cleansing -Anesthetic Used 15. RIGHT BUTTOCK CLUSTER -Combined with other wound No -Current Size (cm) - Length 2 -Current Size (cm) - Width 0.5 -Current Size (cm) - Depth 0.1 -Total Square Cm 1.0 -Photo Taken Yes -Tunneling No -Undermining/Tunneling No -Circular Undermining No -Exudate Amt Medium -Exudate Type Serosanguineous -Wound Margin Distinct, Outline Attached -Granulation Amt Medium (34-66%) -Granulation Quality [place] -Slough/Fibrin Yes -Necrosis Amt Medium (34-66%) -Necrotic Tissue Type Adherent Slough -Structure Exposed N/A -Texture (Maryann-wound Skin Appearance) Assessed, Excoriation -Moisture (Maryann-wound Skin Appearance) Assessed -Color (Maryann-wound Skin Appearance) Assessed -Temperature (Maryann-wound Skin No Abnormality Appearance) (Pt Warm) -Tenderness on Palpation (Maryann-wound No Skin Appearance) -Ulcer Cleansing Wound Cleanser -Foul Odor after Cleansing No 14. LEFT BUTTOCK -Combined with other wound No -Current Size (cm) - Length 0.1 -Current Size (cm) - Width 0.1 -Current Size (cm) - Depth 0.1 -Total Square Cm 0.01 -Photo Taken Yes -Tunneling No -Undermining/Tunneling No -Circular Undermining No -Exudate Amt Medium -Exudate Type Serosanguineous -Wound Margin Distinct, Outline Attached -Granulation Amt Medium (34-66%) -Granulation Quality [place] -Slough/Fibrin Yes -Necrosis Amt Medium (34-66%) -Necrotic Tissue Type Adherent Slough -Structure Exposed N/A -Texture (Maryann-wound Skin Appearance) Excoriation -Moisture (Maryann-wound Skin Appearance) Assessed -Color (Maryann-wound Skin Appearance) Assessed -Temperature (Maryann-wound Skin No Abnormality Appearance) (Pt Warm) -Tenderness on Palpation (Maryann-wound No Skin Appearance) -Ulcer Cleansing Wound Cleanser -Foul Odor after Cleansing No #13 Right Inferior Knee -Combined with other wound -Current Size (cm) - Length -Current Size (cm) - Width -Current Size (cm) - Depth -Total Square Cm -Date of Last Picture (Recall this field) -Photo Taken -Epithelialization -Tunneling -Undermining/Tunneling -Circular Undermining -Exudate Amt -Wound Margin -Necrosis Amt -Necrotic Tissue Type -Texture (Maryann-wound Skin Appearance) -Moisture (Maryann-wound Skin Appearance) -Color (Maryann-wound Skin Appearance) -Temperature (Maryann-wound Skin Appearance) -Tenderness on Palpation (Maryann-wound Skin Appearance) -Ulcer Cleansing -Foul Odor after Cleansing -Anesthetic Used #12 R ACHILLES -Current Size (cm) - Length -Current Size (cm) - Width -Current Size (cm) - Depth -Total Square Cm -Date of Last Picture (Recall this field) -Photo Taken -Epithelialization -Tunneling -Undermining/Tunneling -Circular Undermining -Exudate Amt -Exudate Type -Wound Margin -Granulation Amt -Granulation Quality -Necrosis Amt -Necrotic Tissue Type -Texture (Maryann-wound Skin Appearance) -Moisture (Maryann-wound Skin Appearance) -Color (Maryann-wound Skin Appearance) -Temperature (Maryann-wound Skin Appearance) -Tenderness on Palpation (Maryann-wound Skin Appearance) -Ulcer Cleansing -Foul Odor after Cleansing -Anesthetic Used #10 R SUP POST CALF -Current Size (cm) - Length -Current Size (cm) - Width -Current Size (cm) - Depth -Total Square Cm -Date of Last Picture (Recall this field) -Photo Taken -Epithelialization -Tunneling -Undermining/Tunneling -Circular Undermining -Change in Wound Grade/Stage -Exudate Amt -Exudate Type -Wound Margin -Granulation Amt -Granulation Quality -Slough/Fibrin -Necrosis Amt -Necrotic Tissue Type -Texture (Maryann-wound Skin Appearance) -Moisture (Maryann-wound Skin Appearance) -Color (Maryann-wound Skin Appearance) -Temperature (Maryann-wound Skin Appearance) -Tenderness on Palpation (Maryann-wound Skin Appearance) -Ulcer Cleansing -Foul Odor after Cleansing -Anesthetic Used Lower Limb Edema Present Right Calf (cm) Right Ankle (cm) Left Calf (cm) Left Ankle (cm) WC - Nurse 2 - General Ulcer CM Notes Start: 06/04/24 11:19 Freq: Status: Active Protocol: Activity Type Activity Date Activity User E-sign Co-sign Detail Recorded Client Recorded Date Recorded By Document 06/04/24 11:56 JF [id number] 06/04/24 12:05 JF Document 06/11/24 11:33 DS [id number] 06/11/24 11:34 DS Edit Result 06/11/24 11:33 DS (1) [id number] 06/12/24 10:39 DS Document 06/18/24 11:39 JF [id number] 06/18/24 11:42 JF Document 06/18/24 12:01 BMF [id number] 06/18/24 12:07 BMF (1) #13 Right Inferior Knee - Wound/Ulcer Outcome => Not Healed 06/04/24 06/11/24 06/18/24 11:56 11:33 11:39 Wound Center Nurse 2 #11 R INF POST CALF -Time 11:59 -Correct Patient Yes -Correct Side, Site, Position No -Correct Procedure No -Procedure Performed No -Post Debridement (cm) - Length 0 -Post Debridement (cm) - Width 0 -Post Debridement (cm) - Depth 0 -Total Square (Post) (cm) 0 -Area of Debridement (cm) - Length 0 -Area of Debridement (cm) - Width 0 -Total Square (Area) (cm) 0 -Tunneling No -Undermining/Tunneling No -Circular Undermining No -Wound/Ulcer Outcome Not Healed -Ulcer Cleansing Rinsed/ Irrigated with Saline -Foul Odor after Cleansing No -Bioengineered Tissue No -Bleeding Controlled with Pressure -Treatment Response Procedure Tolerated Well -Offloading No -Debridement - Subq, 1st 20sq cm No #15- R BUTTOCK -Time -Correct Patient -Correct Side, Site, Position -Correct Procedure -Procedure Performed -Type of Procedure -Clinical Debridement -Tissue Removed -Post Debridement (cm) - Length -Post Debridement (cm) - Width -Post Debridement (cm) - Depth -Total Square (Post) (cm) -Area of Debridement (cm) - Length -Area of Debridement (cm) - Width -Total Square (Area) (cm) -Tunneling -Undermining/Tunneling -Circular Undermining -Wound/Ulcer Outcome -Ulcer Cleansing -Foul Odor after Cleansing -Bioengineered Tissue -Bleeding Controlled with -Treatment Response -Debridement - Subq, 1st 20sq cm #14- L BUTTOCK -Time -Correct Patient -Correct Side, Site, Position -Correct Procedure -Procedure Performed -Type of Procedure -Clinical Debridement -Tissue Removed -Post Debridement (cm) - Length -Post Debridement (cm) - Width -Post Debridement (cm) - Depth -Total Square (Post) (cm) -Area of Debridement (cm) - Length -Area of Debridement (cm) - Width -Total Square (Area) (cm) -Tunneling -Undermining/Tunneling -Circular Undermining -Wound/Ulcer Outcome -Ulcer Cleansing -Foul Odor after Cleansing -Bioengineered Tissue -Bleeding Controlled with -Treatment Response -Debridement - Subq, 1st 20sq cm #13 Right Inferior Knee -Time 11:33 -Correct Patient Yes No -Correct Side, Site, Position No -Correct Procedure No -Procedure Performed No No -Wound/Ulcer Outcome Not Healed #12 R ACHILLES -Time 11:58 11:33 11:41 -Correct Patient Yes Yes Yes -Correct Side, Site, Position Yes Yes Yes -Correct Procedure Yes Yes Yes -Procedure Performed Yes Yes Yes -Type of Procedure Debridement Debridement Debridement -Clinical Debridement Subcutaneous Subcutaneous Subcutaneous -Tissue Removed Subcutaneous Subcutaneous Subcutaneous -Post Debridement (cm) - Length 1.4 0.6 0.6 -Post Debridement (cm) - Width 1.4 1.1 1.0 -Post Debridement (cm) - Depth 0.2 0.1 0.1 -Total Square (Post) (cm) 1.96 0.66 0.60 -Area of Debridement (cm) - Length 1.4 0.6 0.6 -Area of Debridement (cm) - Width 1.4 1.1 1.0 -Total Square (Area) (cm) 1.96 0.66 0.60 -Tunneling No No No -Undermining/Tunneling No No No -Circular Undermining No No No -Wound/Ulcer Outcome Not Healed Not Healed Not Healed -Ulcer Cleansing Rinsed/ Rinsed/ Rinsed/ Irrigated with Irrigated with Irrigated with Saline Saline Saline -Foul Odor after Cleansing No No No -Bioengineered Tissue No No No -Bleeding Controlled with Pressure Pressure Pressure -Treatment Response Procedure Procedure Procedure Tolerated Well Tolerated Well Tolerated Well -Offloading No No -Debridement - Subq, 1st 20sq cm No Yes No #10 R SUP POST CALF -Time 12:00 11:33 11:41 -Correct Patient Yes Yes Yes -Correct Side, Site, Position Yes Yes Yes -Correct Procedure Yes Yes Yes -Procedure Performed Yes Yes Yes -Type of Procedure Debridement Debridement Debridement -Clinical Debridement Subcutaneous Subcutaneous Subcutaneous -Tissue Removed Subcutaneous Subcutaneous Subcutaneous -Post Debridement (cm) - Length 1.5 1.4 1.5 -Post Debridement (cm) - Width 0.9 0.8 1.0 -Post Debridement (cm) - Depth 0.2 0.1 0.1 -Total Square (Post) (cm) 1.35 1.12 1.50 -Area of Debridement (cm) - Length 1.5 1.4 1.5 -Area of Debridement (cm) - Width 0.9 0.8 1.0 -Total Square (Area) (cm) 1.35 1.12 1.50 -Tunneling No No No -Undermining/Tunneling No No No -Circular Undermining No No No -Wound/Ulcer Outcome Not Healed Not Healed Not Healed -Ulcer Cleansing Rinsed/ Rinsed/ Rinsed/ Irrigated with Irrigated with Irrigated with Saline Saline Saline -Foul Odor after Cleansing No No No -Bioengineered Tissue No No No -Bleeding Controlled with Pressure Pressure Pressure -Treatment Response Procedure Procedure Procedure Tolerated Well Tolerated Well Tolerated Well -Offloading No No -Debridement - Subq, 1st 20sq cm Yes No Yes Pain Scale: 0-10 Numeric Is Patient Pain Free? Yes Yes Yes 06/18/24 12:01 Wound Center Nurse 2 #11 R INF POST CALF -Time -Correct Patient -Correct Side, Site, Position -Correct Procedure -Procedure Performed -Post Debridement (cm) - Length -Post Debridement (cm) - Width -Post Debridement (cm) - Depth -Total Square (Post) (cm) -Area of Debridement (cm) - Length -Area of Debridement (cm) - Width -Total Square (Area) (cm) -Tunneling -Undermining/Tunneling -Circular Undermining -Wound/Ulcer Outcome -Ulcer Cleansing -Foul Odor after Cleansing -Bioengineered Tissue -Bleeding Controlled with -Treatment Response -Offloading -Debridement - Subq, 20sq cm #15- R BUTTOCK -Time 12:04 -Correct Patient Yes -Correct Side, Site, Position Yes -Correct Procedure Yes -Procedure Performed Yes -Type of Procedure Debridement -Clinical Debridement Subcutaneous -Tissue Removed Subcutaneous -Post Debridement (cm) - Length 3 -Post Debridement (cm) - Width 1 -Post Debridement (cm) - Depth 0.1 -Total Square (Post) (cm) 3 -Area of Debridement (cm) - Length 3 -Area of Debridement (cm) - Width 1 -Total Square (Area) (cm) 3 -Tunneling No -Undermining/Tunneling No -Circular Undermining No -Wound/Ulcer Outcome Not Healed -Ulcer Cleansing Rinsed/ Irrigated with Saline -Foul Odor after Cleansing No -Bioengineered Tissue No -Bleeding Controlled with Pressure -Treatment Response Procedure Tolerated Well -Debridement - Subq, 20sq cm No #14- L BUTTOCK -Time 12:04 -Correct Patient Yes -Correct Side, Site, Position Yes -Correct Procedure Yes -Procedure Performed Yes -Type of Procedure Debridement -Clinical Debridement Subcutaneous -Tissue Removed Subcutaneous -Post Debridement (cm) - Length 1 -Post Debridement (cm) - Width 0.5 -Post Debridement (cm) - Depth 0.1 -Total Square (Post) (cm) 0.5 -Area of Debridement (cm) - Length 1 -Area of Debridement (cm) - Width 0.5 -Total Square (Area) (cm) 0.5 -Tunneling No -Undermining/Tunneling No -Circular Undermining No -Wound/Ulcer Outcome Not Healed -Ulcer Cleansing Rinsed/ Irrigated with Saline -Foul Odor after Cleansing No -Bioengineered Tissue No -Bleeding Controlled with Pressure -Treatment Response Procedure Tolerated Well -Debridement - Subq, 20sq cm Yes #13 Right Inferior Knee -Time -Correct Patient -Correct Side, Site, Position -Correct Procedure -Procedure Performed -Wound/Ulcer Outcome #12 R ACHILLES -Time -Correct Patient -Correct Side, Site, Position -Correct Procedure -Procedure Performed -Type of Procedure -Clinical Debridement -Tissue Removed -Post Debridement (cm) - Length -Post Debridement (cm) - Width -Post Debridement (cm) - Depth -Total Square (Post) (cm) -Area of Debridement (cm) - Length -Area of Debridement (cm) - Width -Total Square (Area) (cm) -Tunneling -Undermining/Tunneling -Circular Undermining -Wound/Ulcer Outcome -Ulcer Cleansing -Foul Odor after Cleansing -Bioengineered Tissue -Bleeding Controlled with -Treatment Response -Offloading -Debridement - Subq, 1st 20sq cm #10 R SUP POST CALF -Time -Correct Patient -Correct Side, Site, Position -Correct Procedure -Procedure Performed -Type of Procedure -Clinical Debridement -Tissue Removed -Post Debridement (cm) - Length -Post Debridement (cm) - Width -Post Debridement (cm) - Depth -Total Square (Post) (cm) -Area of Debridement (cm) - Length -Area of Debridement (cm) - Width -Total Square (Area) (cm) -Tunneling -Undermining/Tunneling -Circular Undermining -Wound/Ulcer Outcome -Ulcer Cleansing -Foul Odor after Cleansing -Bioengineered Tissue -Bleeding Controlled with -Treatment Response -Offloading -Debridement - Subq, 20sq cm Pain Scale: 0-10 Numeric Is Patient Pain Free? Yes WC - Nurse 3 - General Ulcer D/C NN Start: 06/04/24 11:19 Freq: Status: Active Protocol: Activity Type Activity Date Activity User E-sign Co-sign Detail Recorded Client Recorded Date Recorded By Document 06/04/24 12:24 RB [id number] 06/04/24 12:27 RB Document 06/11/24 11:51 [id number] 06/11/24 11:52 Document 06/18/24 11:48 [id number] 06/18/24 11:49 06/04/24 06/11/24 06/18/24 12:24 11:51 11:48 Wound Care Center Nurse 3 #13 Right Inferior Knee -Ulcer Cleansing Not Cleansed -Foul Odor after Cleansing No -Other Dressing HYDROGEL -Primary Dressing Covered/Secured with Dry Gauze, Dry Gauze,Dry Secured with Gauze & Roll Tape Gauze,Secured with Tape #12 R ACHILLES -Ulcer Cleansing Not Cleansed -Foul Odor after Cleansing No -Other Dressing HYDROGEL HYDROGEL -Primary Dressing Covered/Secured with Dry Gauze,Dry Dry Gauze,Dry Dry Gauze,Dry Gauze & Roll Gauze & Roll Gauze & Roll Gauze,Secured Gauze,Secured Gauze,Secured with Tape with Tape with Tape #10 R SUP POST CALF -Ulcer Cleansing Not Cleansed -Foul Odor after Cleansing No -Other Dressing HYDROGEL HYDROGEL -Primary Dressing Covered/Secured with Dry Gauze,Dry Dry Gauze Dry Gauze,Dry Gauze & Roll Gauze & Roll Gauze,Secured Gauze,Secured with Tape with Tape BILAT LE -Lotion applied to leg before No compression wrap -Tubular Bandage Double Layer Double Layer Double Layer -Size of Tubigrip Used Size E Size E Size D -Size D ($) 4 -Size E ($) 4 2 Treatment Response Procedure Procedure Tolerated Well Tolerated Well Pain Scale: 0-10 Numeric Is Patient Pain Free? Yes Yes Yes WC - Visit Discharge Discharge Condition Stable Unstable Stable Ambulatory Status Ambulatory, Ambulatory Ambulatory, Walker Walker Transportation [facility] Auto Private Auto Medication Reconcilliation completed & No No provided to patient/care provider Clinical Summary of Care Provided Yes Yes Additional Wound Wound debrided: Left buttocks Laterality: Left Wound Grade/Stage: Decubitus ulcer stage II Type of Debridement: Excisional debridement Anesthesia Used: 5% Lidocaine Gel Depth: in the subcutaneous layer Percentage of wound debrided: 100 Instrument Used: 7mm curette Tissue Removed: Devitalized tissue and fibrin Severity: Fat Layer Exposed Amount of bleeding with debridement: Mild Bleeding Controlled with: Compression and gauze Patient tolerated procedure: Patient tolerated procedure well Assessment/Plan Assessment/Plan (1) Pressure ulcer of right buttock, stage 2: CODE(S): L89.312 - Pressure ulcer of right buttock, stage 2 PLAN: Wash right buttocks with antibacterial soap and water and apply Xeroform dressing to wound with Adaptic over top and a foam XL SAP dressing every day (2) Pressure ulcer of left buttock, stage 2: CODE(S): L89.322 - Pressure ulcer of left buttock, stage 2 PLAN: Wash left buttocks with antibacterial soap and water pat dry apply Xeroform and Adaptic over top with a foam [place] SAP dressing every day Follow-up in 1 week Apply gel cushion to sit on Offload with laying in bed rather than sitting on buttocks (3) Dementia with psychotic disturbance: CODE(S): F03.92 - Unspecified dementia, unspecified severity, with psychotic disturbance QUALIFIERS: Dementia type: vascular dementia Dementia severity: moderate Qualified Code(s): F01.B2 - Vascular dementia, moderate, with psychotic disturbance
--- NOTE | 2024-06-18 12:27 | PN.PCM_ITS ---
History of Present Illness Date of Service: 06/11/24 Chief Complaint: RLE wound History of Wound: Patient is an 83-year-old female who resides at [facility]. She is referred by facility for evaluation and management of right lower extremity wound which has been ongoing for an indeterminate amount of time. Patient cannot say and we did not receive any paperwork/information from the facility. Patient is well-known to the facility. She does get help with aides at her assisted living facility. She is not the most reliable historian with known history of dementia and some confusion noted here today. She is not sure when or how this wound started. She does not recall a specific injury. She did have compression wraps donned to the bilateral lower extremity. Most of her pain is to the right heel area. She is not diabetic. She does not smoke. She is ambulatory and denies c laudication type symptoms. She does have bilateral lower extremity edema, seems to be fairly well controlled with compression today. The wound on her R posterolateral calf and heel is down to subcutaneous tissue with serous drainage. There is no significant erythema, appreciable warmth, excessive tenderness, foul odor, focal swelling/fluctuance/induration. Denies N/V, F/C. Progress of Wound: Stable wound to the right lower extremity. Subjective Subjective Mrs. Fox is a 83-year-old female presented wound care center today follow-up evaluation of right lower extremity full-thickness wound. She has been doing dressing changes with Santyl moist gauze dry sterile dressing and Tubigrip. She notices improvement to the wounds. Overall the patient is doing well. Denies any new onset of trauma. Denies constitutional symptoms. No other pedal complaints at this time. Objective Data Objective Data Vital Signs: Vital Signs Temp Pulse Resp BP O2 Del Method 96.6 F L 80 18 160/73 H Room Air 06/11/24 10:55 06/18/24 11:16 06/18/24 11:16 06/18/24 11:16 06/18/24 11:16 Oxygen Delivery Method Room Air Physical Exam Narrative Vascular: DP and PT pulses are palpable to bilateral extremity. CFT is brisk. Nonpitting edema appreciated to bilateral lower extremity. No erythema. Skin temperature great is warm to warm from proximal ankles to distal digit bilateral. Neurological: Light touch intact. Patient does respond to painful stimuli. Dermatological: Full-thickness ulceration to the right posterior leg measuring 1 .5 x 1.0 x 0.1 cm. Right posterior leg wound is granular nature. No drainage. No sign of infection. Right Achilles area full-thickness wound measuring 0.6 x 1.0 x 0.1 cm. Achilles wound is granular with no sign of infection. Excisional debridement down to and including subcutaneous tissue with a number 5 mm dermal curette to the right posterior leg ulceration without incident. Predebridement measurement was 1.3 x 0.9 x 0.1 cm. Postdebridement measurement is 1.5 x 1.1 x 0.1 cm. Excisional debridement down to including subcutaneous tissue with a number 5 mm dermal curette to the right Achilles tendon ulceration without incident. Predebridement measurement was 0.5 x 0.9 x 0.1 cm.. Postdebridement measurement is 0.6 x 1.0 x 0.1 cm. Musculoskeletal: Mild pain on palpation to both full-thickness ulceration. No pain with calf compression. Debridement Note Debridement Note Debridement Free Text: Excisional debridement down to and including subcutaneous tissue with a number 5 mm dermal curette to the right posterior leg ulceration without incident. Predebridement measurement was 1.3 x 0.9 x 0.1 cm. Postdebridement measurement is 1.5 x 1.1 x 0.1 cm. Excisional debridement down to including subcutaneous tissue with a number 5 mm dermal curette to the right Achilles tendon ulceration without incident. Predebridement measurement was 0.5 x 0.9 x 0.1 cm.. Postdebridement measurement is 0.6 x 1.0 x 0.1 cm. Post-Debridement Measurements and Additional Note: Post-Debridement Measurements/Treatment WC - Nurse 1 - General Ulcer Assessment Start: 06/04/24 11:19 Freq: Status: Active Protocol: STACIA Activity Type Activity Date Activity User E-sign Co-sign Detail Recorded Client Recorded Date Recorded By Document 06/04/24 11:19 MT [id number] 06/04/24 11:31 MT Document 06/11/24 10:55 GM [id number] 06/11/24 11:10 GM Document 06/18/24 11:16 KW [id number] 06/18/24 11:27 KW 06/04/24 06/11/2406/18/25 11:19 10:55 11:16 - Today's Visit Information Type of service Initial Visit Follow-up Visit Follow-up Visit (Physician/REFRIGERATION INSULATOR (Physician/REFRIGERATION INSULATOR ) ) Arrival Mode Ambulatory, Ambulatory, Ambulatory, Walker Walker Walker Patient Identification Verified (Name & Yes Yes Yes ) Vital Signs Temperature (97.8 F-99.1 F) 96.8 F L 96.6 F L Temperature Source Temporal Oral Pulse Rate (60-100) 67 80 Pulse Location Monitor Monitor Monitor Respiratory Rate (12-18) 16 16 18 Respiratory rate source Observation Observation Observation Oxygen Delivery Method Room Air Room Air Room Air Blood Pressure (90/60-120/80) 147/60 H 160/73 H Blood Pressure Mean (mm Hg) 89 102 Source Monitor Monitor Monitor Position Semi-Fowlers Sitting Semi-Fowlers Blood Pressure Location Right Arm Left Arm Left Arm History Since Last Visit- (Skip if this is Patient's initial visit) Have you changed medications since your No No last visit? Any new allergies or adverse reactions No No Had a fall/change in ADL's that may No No increase risk of falls Signs or symptoms of abuse and/or No No neglect since last visit Have you been in the hospital since your No No last visit? Has dressing in place as prescribed Yes Yes Has compression in place as prescribed Yes Yes Has offloadiing in place as prescribed N/A Experienced any changes in pain level or No No management Left Footwear Regular Shoe Regular Shoe Regular Shoe Right Footwear Regular Shoe Regular Shoe Regular Shoe Pain Scale: 0-10 Numeric Is Patient Pain Free? Yes Yes Yes - Nurse 1 - General Ulcer Measurement Start: 06/04/24 11:19 Freq: Status: Active Protocol: Activity Type Activity Date Activity User E-sign Co-sign Detail Recorded Client Recorded Date Recorded By Document 06/04/24 11:19 MT [id number] 06/04/24 11:31 MT Document 06/11/24 10:55 GM [id number] 06/11/24 11:10 GM Document 06/18/24 11:16 KW [id number] 06/18/24 11:27 KW Document 06/18/24 12:02 RB [id number] 06/18/24 12:03 RB 06/04/24 06/11/24 06/18/24 11:19 10:55 11:16 Wound Center Nurse 1 #11 R INF POST CALF -Current Size (cm) - Length 0.1 -Current Size (cm) - Width 0.1 -Current Size (cm) - Depth 0.1 -Total Square Cm 0.01 -Date of Last Picture (Recall this 06/04/24 field) -Exudate Amt Small -Exudate Type Serosanguineous -Wound Margin Distinct, Outline Attached -Granulation Amt Large (67-100%) -Granulation Quality Red -Texture (Maryann-wound Skin Appearance) Assessed -Moisture (Maryann-wound Skin Appearance) Assessed -Color (Maryann-wound Skin Appearance) Assessed -Ulcer Cleansing Soap and Water -Foul Odor after Cleansing No -Anesthetic Used 5% Lidocaine Gel 15. RIGHT BUTTOCK CLUSTER -Combined with other wound -Current Size (cm) - Length -Current Size (cm) - Width -Current Size (cm) - Depth -Total Square Cm -Photo Taken -Tunneling -Undermining/Tunneling -Circular Undermining -Exudate Amt -Exudate Type -Wound Margin -Granulation Amt -Granulation Quality -Slough/Fibrin -Necrosis Amt -Necrotic Tissue Type -Structure Exposed -Texture (Maryann-wound Skin Appearance) -Moisture (Maryann-wound Skin Appearance) -Color (Maryann-wound Skin Appearance) -Temperature (Maryann-wound Skin Appearance) -Tenderness on Palpation (Maryann-wound Skin Appearance) -Ulcer Cleansing -Foul Odor after Cleansing 14. LEFT BUTTOCK -Combined with other wound -Current Size (cm) - Length -Current Size (cm) - Width -Current Size (cm) - Depth -Total Square Cm -Photo Taken -Tunneling -Undermining/Tunneling -Circular Undermining -Exudate Amt -Exudate Type -Wound Margin -Granulation Amt -Granulation Quality -Slough/Fibrin -Necrosis Amt -Necrotic Tissue Type -Structure Exposed -Texture (Maryann-wound Skin Appearance) -Moisture (Maryann-wound Skin Appearance) -Color (Maryann-wound Skin Appearance) -Temperature (Maryann-wound Skin Appearance) -Tenderness on Palpation (Maryann-wound Skin Appearance) -Ulcer Cleansing -Foul Odor after Cleansing #13 Right Inferior Knee -Combined with other wound No -Current Size (cm) - Length 1.3 1 -Current Size (cm) - Width 0.9 0.8 -Current Size (cm) - Depth 0.1 0.1 -Total Square Cm 1.17 0.8 -Date of Last Picture (Recall this 06/11/24 06/18/24 field) -Photo Taken Yes -Epithelialization None Present -Tunneling No -Undermining/Tunneling No -Circular Undermining No -Exudate Amt None Present None Present -Wound Margin Distinct, Outline Attached -Necrosis Amt Large (67-100%) -Necrotic Tissue Type Eschar -Texture (Maryann-wound Skin Appearance) Assessed Assessed -Moisture (Maryann-wound Skin Appearance) Assessed Assessed -Color (Maryann-wound Skin Appearance) Erythema Assessed, Erythema -Temperature (Maryann-wound Skin No Abnormality No Abnormality Appearance) (Pt Warm) (Pt Warm) -Tenderness on Palpation (Maryann-wound No No Skin Appearance) -Ulcer Cleansing Soap and Water Soap and Water -Foul Odor after Cleansing No No -Anesthetic Used 5% Lidocaine 5% Lidocaine Gel Gel #12 R ACHILLES -Current Size (cm) - Length 1.6 0.2 0.4 -Current Size (cm) - Width 2 0.2 0.7 -Current Size (cm) - Depth 0.2 0.1 0.1 -Total Square Cm 3.2 0.04 0.28 -Date of Last Picture (Recall this 06/04/24 06/18/24 field) -Photo Taken No -Epithelialization Small 1-33% -Tunneling No -Undermining/Tunneling No -Circular Undermining No -Exudate Amt Small Small Small -Exudate Type Serosanguineous Yellow/Green Serosanguineous -Wound Margin Distinct, Distinct, Distinct, Outline Outline Outline Attached Attached Attached -Granulation Amt Large (67-100%) Small (1-33%) Large (67-100%) -Granulation Quality Red Bronaugh Bronaugh -Necrosis Amt Small (1-33%) Small (1-33%) -Necrotic Tissue Type Eschar Adherent Slough -Texture (Maryann-wound Skin Appearance) Assessed Assessed Assessed -Moisture (Maryann-wound Skin Appearance) Assessed Assessed Assessed -Color (Maryann-wound Skin Appearance) Assessed, Assessed Assessed Erythema -Temperature (Maryann-wound Skin No Abnormality No Abnormality No Abnormality Appearance) (Pt Warm) (Pt Warm) (Pt Warm) -Tenderness on Palpation (Maryann-wound No Yes No Skin Appearance) -Ulcer Cleansing Soap and Water Soap and Water Soap and Water -Foul Odor after Cleansing No No No -Anesthetic Used 5% Lidocaine 5% Lidocaine 5% Lidocaine Gel Gel Gel #10 R SUP POST CALF -Current Size (cm) - Length 1.2 1.5 0.8 -Current Size (cm) - Width 1 0.5 0.2 -Current Size (cm) - Depth 0.1 0.1 0.1 -Total Square Cm 1.2 0.75 0.16 -Date of Last Picture (Recall this 06/04/24 06/18/24 field) -Photo Taken No -Epithelialization None Present -Tunneling No -Undermining/Tunneling No -Circular Undermining No -Change in Wound Grade/Stage No -Exudate Amt Medium Small Small -Exudate Type Serosanguineous Yellow/Green Serosanguineous -Wound Margin Distinct, Distinct, Distinct, Outline Outline Outline Attached Attached Attached -Granulation Amt Small (1-33%) Small (1-33%) Large (67-100%) -Granulation Quality Bronaugh Bronaugh Bronaugh -Slough/Fibrin No -Necrosis Amt Large (67-100%) None Present (0 Small (1-33%) %) -Necrotic Tissue Type Adherent Slough Adherent Slough -Texture (Maryann-wound Skin Appearance) Assessed Assessed Assessed -Moisture (Maryann-wound Skin Appearance) Assessed, Assessed Assessed Weeping -Color (Maryann-wound Skin Appearance) Assessed Assessed Assessed -Temperature (Maryann-wound Skin No Abnormality No Abnormality No Abnormality Appearance) (Pt Warm) (Pt Warm) (Pt Warm) -Tenderness on Palpation (Maryann-wound No Yes No Skin Appearance) -Ulcer Cleansing Soap and Water Soap and Water Soap and Water -Foul Odor after Cleansing No No No -Anesthetic Used 5% Lidocaine 5% Lidocaine 5% Lidocaine Gel Gel Gel Lower Limb Edema Present No Right Calf (cm) 39 40.0 36.5 Right Ankle (cm) 23.5 23.0 21.5 Left Calf (cm) 36.5 Left Ankle (cm) 21.5 06/18/24 12:02 Wound Center Nurse 1 #11 R INF POST CALF -Current Size (cm) - Length -Current Size (cm) - Width -Current Size (cm) - Depth -Total Square Cm -Date of Last Picture (Recall this field) -Exudate Amt -Exudate Type -Wound Margin -Granulation Amt -Granulation Quality -Texture (Maryann-wound Skin Appearance) -Moisture (Maryann-wound Skin Appearance) -Color (Maryann-wound Skin Appearance) -Ulcer Cleansing -Foul Odor after Cleansing -Anesthetic Used 15. RIGHT BUTTOCK CLUSTER -Combined with other wound No -Current Size (cm) - Length 2 -Current Size (cm) - Width 0.5 -Current Size (cm) - Depth 0.1 -Total Square Cm 1.0 -Photo Taken Yes -Tunneling No -Undermining/Tunneling No -Circular Undermining No -Exudate Amt Medium -Exudate Type Serosanguineous -Wound Margin Distinct, Outline Attached -Granulation Amt Medium (34-66%) -Granulation Quality Bronaugh -Slough/Fibrin Yes -Necrosis Amt Medium (34-66%) -Necrotic Tissue Type Adherent Slough -Structure Exposed N/A -Texture (Maryann-wound Skin Appearance) Assessed, Excoriation -Moisture (Maryann-wound Skin Appearance) Assessed -Color (Maryann-wound Skin Appearance) Assessed -Temperature (Maryann-wound Skin No Abnormality Appearance) (Pt Warm) -Tenderness on Palpation (Maryann-wound No Skin Appearance) -Ulcer Cleansing Wound Cleanser -Foul Odor after Cleansing No 14. LEFT BUTTOCK -Combined with other wound No -Current Size (cm) - Length 0.1 -Current Size (cm) - Width 0.1 -Current Size (cm) - Depth 0.1 -Total Square Cm 0.01 -Photo Taken Yes -Tunneling No -Undermining/Tunneling No -Circular Undermining No -Exudate Amt Medium -Exudate Type Serosanguineous -Wound Margin Distinct, Outline Attached -Granulation Amt Medium (34-66%) -Granulation Quality Bronaugh -Slough/Fibrin Yes -Necrosis Amt Medium (34-66%) -Necrotic Tissue Type Adherent Slough -Structure Exposed N/A -Texture (Maryann-wound Skin Appearance) Excoriation -Moisture (Maryann-wound Skin Appearance) Assessed -Color (Maryann-wound Skin Appearance) Assessed -Temperature (Maryann-wound Skin No Abnormality Appearance) (Pt Warm) -Tenderness on Palpation (Maryann-wound No Skin Appearance) -Ulcer Cleansing Wound Cleanser -Foul Odor after Cleansing No #13 Right Inferior Knee -Combined with other wound -Current Size (cm) - Length -Current Size (cm) - Width -Current Size (cm) - Depth -Total Square Cm -Date of Last Picture (Recall this field) -Photo Taken -Epithelialization -Tunneling -Undermining/Tunneling -Circular Undermining -Exudate Amt -Wound Margin -Necrosis Amt -Necrotic Tissue Type -Texture (Maryann-wound Skin Appearance) -Moisture (Maryann-wound Skin Appearance) -Color (Maryann-wound Skin Appearance) -Temperature (Maryann-wound Skin Appearance) -Tenderness on Palpation (Maryann-wound Skin Appearance) -Ulcer Cleansing -Foul Odor after Cleansing -Anesthetic Used #12 R ACHILLES -Current Size (cm) - Length -Current Size (cm) - Width -Current Size (cm) - Depth -Total Square Cm -Date of Last Picture (Recall this field) -Photo Taken -Epithelialization -Tunneling -Undermining/Tunneling -Circular Undermining -Exudate Amt -Exudate Type -Wound Margin -Granulation Amt -Granulation Quality -Necrosis Amt -Necrotic Tissue Type -Texture (Maryann-wound Skin Appearance) -Moisture (Maryann-wound Skin Appearance) -Color (Maryann-wound Skin Appearance) -Temperature (Maryann-wound Skin Appearance) -Tenderness on Palpation (Maryann-wound Skin Appearance) -Ulcer Cleansing -Foul Odor after Cleansing -Anesthetic Used #10 R SUP POST CALF -Current Size (cm) - Length -Current Size (cm) - Width -Current Size (cm) - Depth -Total Square Cm -Date of Last Picture (Recall this field) -Photo Taken -Epithelialization -Tunneling -Undermining/Tunneling -Circular Undermining -Change in Wound Grade/Stage -Exudate Amt -Exudate Type -Wound Margin -Granulation Amt -Granulation Quality -Slough/Fibrin -Necrosis Amt -Necrotic Tissue Type -Texture (Maryann-wound Skin Appearance) -Moisture (Maryann-wound Skin Appearance) -Color (Maryann-wound Skin Appearance) -Temperature (Maryann-wound Skin Appearance) -Tenderness on Palpation (Maryann-wound Skin Appearance) -Ulcer Cleansing -Foul Odor after Cleansing -Anesthetic Used Lower Limb Edema Present Right Calf (cm) Right Ankle (cm) Left Calf (cm) Left Ankle (cm) WC - Nurse 2 - General Ulcer CM Notes Start: 06/04/24 11:19 Freq: Status: Active Protocol: Activity Type Activity Date Activity User E-sign Co-sign Detail Recorded Client Recorded Date Recorded By Document 06/04/24 11:56 JF [id number] 06/04/24 12:05 JF Document 06/11/24 11:33 DS [id number] 06/11/24 11:34 DS Edit Result 06/11/24 11:33 DS (1) [id number] 06/12/24 10:39 DS Document 06/18/24 11:39 JF [id number] 06/18/24 11:42 JF Document 06/18/24 12:01 BMF [id number] 06/18/24 12:07 BMF (1) #13 Right Inferior Knee - Wound/Ulcer Outcome => Not Healed 06/04/24 06/11/24 06/18/24 11:56 11:33 11:39 Wound Center Nurse 2 #11 R INF POST CALF -Time 11:59 -Correct Patient Yes -Correct Side, Site, Position No -Correct Procedure No -Procedure Performed No -Post Debridement (cm) - Length 0 -Post Debridement (cm) - Width 0 -Post Debridement (cm) - Depth 0 -Total Square (Post) (cm) 0 -Area of Debridement (cm) - Length 0 -Area of Debridement (cm) - Width 0 -Total Square (Area) (cm) 0 -Tunneling No -Undermining/Tunneling No -Circular Undermining No -Wound/Ulcer Outcome Not Healed -Ulcer Cleansing Rinsed/ Irrigated with Saline -Foul Odor after Cleansing No -Bioengineered Tissue No -Bleeding Controlled with Pressure -Treatment Response Procedure Tolerated Well -Offloading No -Debridement - Subq, 1st 20sq cm No #15- R BUTTOCK -Time -Correct Patient -Correct Side, Site, Position -Correct Procedure -Procedure Performed -Type of Procedure -Clinical Debridement -Tissue Removed -Post Debridement (cm) - Length -Post Debridement (cm) - Width -Post Debridement (cm) - Depth -Total Square (Post) (cm) -Area of Debridement (cm) - Length -Area of Debridement (cm) - Width -Total Square (Area) (cm) -Tunneling -Undermining/Tunneling -Circular Undermining -Wound/Ulcer Outcome -Ulcer Cleansing -Foul Odor after Cleansing -Bioengineered Tissue -Bleeding Controlled with -Treatment Response -Debridement - Subq, 1st 20sq cm #14- L BUTTOCK -Time -Correct Patient -Correct Side, Site, Position -Correct Procedure -Procedure Performed -Type of Procedure -Clinical Debridement -Tissue Removed -Post Debridement (cm) - Length -Post Debridement (cm) - Width -Post Debridement (cm) - Depth -Total Square (Post) (cm) -Area of Debridement (cm) - Length -Area of Debridement (cm) - Width -Total Square (Area) (cm) -Tunneling -Undermining/Tunneling -Circular Undermining -Wound/Ulcer Outcome -Ulcer Cleansing -Foul Odor after Cleansing -Bioengineered Tissue -Bleeding Controlled with -Treatment Response -Debridement - Subq, 1st 20sq cm #13 Right Inferior Knee -Time 11:33 -Correct Patient Yes No -Correct Side, Site, Position No -Correct Procedure No -Procedure Performed No No -Wound/Ulcer Outcome Not Healed #12 R ACHILLES -Time 11:58 11:33 11:41 -Correct Patient Yes Yes Yes -Correct Side, Site, Position Yes Yes Yes -Correct Procedure Yes Yes Yes -Procedure Performed Yes Yes Yes -Type of Procedure Debridement Debridement Debridement -Clinical Debridement Subcutaneous Subcutaneous Subcutaneous -Tissue Removed Subcutaneous Subcutaneous Subcutaneous -Post Debridement (cm) - Length 1.4 0.6 0.6 -Post Debridement (cm) - Width 1.4 1.1 1.0 -Post Debridement (cm) - Depth 0.2 0.1 0.1 -Total Square (Post) (cm) 1.96 0.66 0.60 -Area of Debridement (cm) - Length 1.4 0.6 0.6 -Area of Debridement (cm) - Width 1.4 1.1 1.0 -Total Square (Area) (cm) 1.96 0.66 0.60 -Tunneling No No No -Undermining/Tunneling No No No -Circular Undermining No No No -Wound/Ulcer Outcome Not Healed Not Healed Not Healed -Ulcer Cleansing Rinsed/ Rinsed/ Rinsed/ Irrigated with Irrigated with Irrigated with Saline Saline Saline -Foul Odor after Cleansing No No No -Bioengineered Tissue No No No -Bleeding Controlled with Pressure Pressure Pressure -Treatment Response Procedure Procedure Procedure Tolerated Well Tolerated Well Tolerated Well -Offloading No No -Debridement - Subq, 1st 20sq cm No Yes No #10 R SUP POST CALF -Time 12:00 11:33 11:41 -Correct Patient Yes Yes Yes -Correct Side, Site, Position Yes Yes Yes -Correct Procedure Yes Yes Yes -Procedure Performed Yes Yes Yes -Type of Procedure Debridement Debridement Debridement -Clinical Debridement Subcutaneous Subcutaneous Subcutaneous -Tissue Removed Subcutaneous Subcutaneous Subcutaneous -Post Debridement (cm) - Length 1.5 1.4 1.5 -Post Debridement (cm) - Width 0.9 0.8 1.0 -Post Debridement (cm) - Depth 0.2 0.1 0.1 -Total Square (Post) (cm) 1.35 1.12 1.50 -Area of Debridement (cm) - Length 1.5 1.4 1.5 -Area of Debridement (cm) - Width 0.9 0.8 1.0 -Total Square (Area) (cm) 1.35 1.12 1.50 -Tunneling No No No -Undermining/Tunneling No No No -Circular Undermining No No No -Wound/Ulcer Outcome Not Healed Not Healed Not Healed -Ulcer Cleansing Rinsed/ Rinsed/ Rinsed/ Irrigated with Irrigated with Irrigated with Saline Saline Saline -Foul Odor after Cleansing No No No -Bioengineered Tissue No No No -Bleeding Controlled with Pressure Pressure Pressure -Treatment Response Procedure Procedure Procedure Tolerated Well Tolerated Well Tolerated Well -Offloading No No -Debridement - Subq, 1st 20sq cm Yes No Yes Pain Scale: 0-10 Numeric Is Patient Pain Free? Yes Yes Yes 06/18/24 12:01 Wound Center Nurse 2 #11 R INF POST CALF -Time -Correct Patient -Correct Side, Site, Position -Correct Procedure -Procedure Performed -Post Debridement (cm) - Length -Post Debridement (cm) - Width -Post Debridement (cm) - Depth -Total Square (Post) (cm) -Area of Debridement (cm) - Length -Area of Debridement (cm) - Width -Total Square (Area) (cm) -Tunneling -Undermining/Tunneling -Circular Undermining -Wound/Ulcer Outcome -Ulcer Cleansing -Foul Odor after Cleansing -Bioengineered Tissue -Bleeding Controlled with -Treatment Response -Offloading -Debridement - Subq, 1st 20sq cm #15- R BUTTOCK -Time 12:04 -Correct Patient Yes -Correct Side, Site, Position Yes -Correct Procedure Yes -Procedure Performed Yes -Type of Procedure Debridement -Clinical Debridement Subcutaneous -Tissue Removed Subcutaneous -Post Debridement (cm) - Length 3 -Post Debridement (cm) - Width 1 -Post Debridement (cm) - Depth 0.1 -Total Square (Post) (cm) 3 -Area of Debridement (cm) - Length 3 -Area of Debridement (cm) - Width 1 -Total Square (Area) (cm) 3 -Tunneling No -Undermining/Tunneling No -Circular Undermining No -Wound/Ulcer Outcome Not Healed -Ulcer Cleansing Rinsed/ Irrigated with Saline -Foul Odor after Cleansing No -Bioengineered Tissue No -Bleeding Controlled with Pressure -Treatment Response Procedure Tolerated Well -Debridement - Subq, 1st 20sq cm No #14- L BUTTOCK -Time 12:04 -Correct Patient Yes -Correct Side, Site, Position Yes -Correct Procedure Yes -Procedure Performed Yes -Type of Procedure Debridement -Clinical Debridement Subcutaneous -Tissue Removed Subcutaneous -Post Debridement (cm) - Length 1 -Post Debridement (cm) - Width 0.5 -Post Debridement (cm) - Depth 0.1 -Total Square (Post) (cm) 0.5 -Area of Debridement (cm) - Length 1 -Area of Debridement (cm) - Width 0.5 -Total Square (Area) (cm) 0.5 -Tunneling No -Undermining/Tunneling No -Circular Undermining No -Wound/Ulcer Outcome Not Healed -Ulcer Cleansing Rinsed/ Irrigated with Saline -Foul Odor after Cleansing No -Bioengineered Tissue No -Bleeding Controlled with Pressure -Treatment Response Procedure Tolerated Well -Debridement - Subq, 1st 20sq cm Yes #13 Right Inferior Knee -Time -Correct Patient -Correct Side, Site, Position -Correct Procedure -Procedure Performed -Wound/Ulcer Outcome #12 R ACHILLES -Time -Correct Patient -Correct Side, Site, Position -Correct Procedure -Procedure Performed -Type of Procedure -Clinical Debridement -Tissue Removed -Post Debridement (cm) - Length -Post Debridement (cm) - Width -Post Debridement (cm) - Depth -Total Square (Post) (cm) -Area of Debridement (cm) - Length -Area of Debridement (cm) - Width -Total Square (Area) (cm) -Tunneling -Undermining/Tunneling -Circular Undermining -Wound/Ulcer Outcome -Ulcer Cleansing -Foul Odor after Cleansing -Bioengineered Tissue -Bleeding Controlled with -Treatment Response -Offloading -Debridement - Subq, 20sq cm #10 R SUP POST CALF -Time -Correct Patient -Correct Side, Site, Position -Correct Procedure -Procedure Performed -Type of Procedure -Clinical Debridement -Tissue Removed -Post Debridement (cm) - Length -Post Debridement (cm) - Width -Post Debridement (cm) - Depth -Total Square (Post) (cm) -Area of Debridement (cm) - Length -Area of Debridement (cm) - Width -Total Square (Area) (cm) -Tunneling -Undermining/Tunneling -Circular Undermining -Wound/Ulcer Outcome -Ulcer Cleansing -Foul Odor after Cleansing -Bioengineered Tissue -Bleeding Controlled with -Treatment Response -Offloading -Debridement - Subq, 20sq cm Pain Scale: 0-10 Numeric Is Patient Pain Free? Yes WC - Nurse 3 - General Ulcer D/C NN Start: 06/04/24 11:19 Freq: Status: Active Protocol: Activity Type Activity Date Activity User E-sign Co-sign Detail Recorded Client Recorded Date Recorded By Document 06/04/24 12:24 RB [id number] 06/04/24 12:27 RB Document 06/11/24 11:51 GM [id number] 06/11/24 11:52 GM Document 06/18/24 11:48 KW [id number] 06/18/24 11:49 KW Document 06/18/24 12:07 BM [id number] 06/18/24 12:14 BMF 06/04/24 06/11/24 06/18/24 12:24 11:51 11:48 Wound Care Center Nurse 3 15. RIGHT BUTTOCK CLUSTER -Ulcer Cleansing -Foul Odor after Cleansing -Primary Dressing Applied -Other Dressing -Silicone Border Foam 4x4 14. LEFT BUTTOCK -Ulcer Cleansing -Foul Odor after Cleansing -Primary Dressing Applied -Other Dressing -Silicone Border Foam 4x4 #13 Right Inferior Knee -Ulcer Cleansing Not Cleansed -Foul Odor after Cleansing No -Other Dressing HYDROGEL -Primary Dressing Covered/Secured with Dry Gauze, Dry Gauze,Dry Secured with Gauze & Roll Tape Gauze,Secured with Tape #12 R ACHILLES -Ulcer Cleansing Not Cleansed -Foul Odor after Cleansing No -Other Dressing HYDROGEL HYDROGEL -Primary Dressing Covered/Secured with Dry Gauze,Dry Dry Gauze,Dry Dry Gauze,Dry Gauze & Roll Gauze & Roll Gauze & Roll Gauze,Secured Gauze,Secured Gauze,Secured with Tape with Tape with Tape #10 R SUP POST CALF -Ulcer Cleansing Not Cleansed -Foul Odor after Cleansing No -Other Dressing HYDROGEL HYDROGEL -Primary Dressing Covered/Secured with Dry Gauze,Dry Dry Gauze Dry Gauze,Dry Gauze & Roll Gauze & Roll Gauze,Secured Gauze,Secured with Tape with Tape BILAT LE -Lotion applied to leg before No compression wrap -Tubular Bandage Double Layer Double Layer Double Layer -Size of Tubigrip Used Size E Size E Size D -Size D ($) 4 -Size E ($) 4 2 Treatment Response Procedure Procedure Tolerated Well Tolerated Well Pain Scale: 0-10 Numeric Is Patient Pain Free? Yes Yes Yes WC - Visit Discharge Discharge Condition Stable Unstable Stable Ambulatory Status Ambulatory, Ambulatory Ambulatory, Walker Walker Transportation [facility] [employer] Medication Reconcilliation completed & No No provided to patient/care provider Clinical Summary of Care Provided Yes Yes Facility Type 06/18/24 12:07 Wound Care Center Nurse 3 15. RIGHT BUTTOCK CLUSTER -Ulcer Cleansing Rinsed/ Irrigated with Saline -Foul Odor after Cleansing No -Primary Dressing Applied NonAdherent Contact Layer, Silicone Border Foam 4x4 -Other Dressing XEROFORM, TOP W / ADAPTIC -Silicone Border Foam 4x4 1 14. LEFT BUTTOCK -Ulcer Cleansing Rinsed/ Irrigated with Saline -Foul Odor after Cleansing No -Primary Dressing Applied NonAdherent Contact Layer, Silicone Border Foam 4x4 -Other Dressing XEROFORM TOP W/ ADAPTIC -Silicone Border Foam 4x4 1 #13 Right Inferior Knee -Ulcer Cleansing -Foul Odor after Cleansing -Other Dressing -Primary Dressing Covered/Secured with #12 R ACHILLES -Ulcer Cleansing -Foul Odor after Cleansing -Other Dressing -Primary Dressing Covered/Secured with #10 R SUP POST CALF -Ulcer Cleansing -Foul Odor after Cleansing -Other Dressing -Primary Dressing Covered/Secured with BILAT LE -Lotion applied to leg before compression wrap -Tubular Bandage -Size of Tubigrip Used -Size D ($) -Size E ($) Treatment Response Procedure Tolerated Well Pain Scale: 0-10 Numeric Is Patient Pain Free? Yes WC - Visit Discharge Discharge Condition Stable Ambulatory Status Ambulatory, Walker Transportation [place] Medication Reconcilliation completed & provided to patient/care provider Clinical Summary of Care Provided Facility Type [facility] Assessment/Plan Assessment/Plan (1) Non-pressure chronic ulcer of other part of right lower leg with fat layer exposed: CODE(S): L97.812 - Non-pressure chronic ulcer of other part of right lower leg with fat layer exposed PLAN: Patient was examined and evaluated. All findings were discussed with the patient. All questions were answered to the patient's satisfaction. Excisional debridement down to and including subcutaneous tissue with a number 5 mm dermal curette to the right posterior leg ulceration without incident. Predebridement measurement was 1.3 x 0.9 x 0.1 cm. Postdebridement measurement is 1.5 x 1.1 x 0.1 cm. Excisional debridement down to including subcutaneous tissue with a number 5 mm dermal curette to the right Achilles tendon ulceration without incident. Predebridement measurement was 0.5 x 0.9 x 0.1 cm.. Postdebridement measurement is 0.6 x 1.0 x 0.1 cm. The bilateral lower extremities were cleaned and patted dry. Saline moist gauze followed by dry sterile dressing and single-layer Tubigrip's were donned to the right lower extremity, single-layer Tubigrip donned to left lower extremity. Dressing changes were given as an order to the assisted living caregivers. Will begin authorization for the right leg full-thickness wound to help facilitate healing potential. Follow-up at the wound care center with Dr. Sylvester in 1 week. 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
--- NOTE | 2024-06-18 13:43 | WC ---
PHOTO 06/18/24 RIGHT INF KNEE
--- NOTE | 2024-06-18 13:46 | WC ---
PHOTO 06/18/24 RIGHT ACHILLES
--- NOTE | 2024-06-18 13:49 | WC ---
PHOTO 06/18/24 RIGHT SUPERIOR POST CALF
--- NOTE | 2024-06-18 13:49 | WC ---
PHOTO 06/18/24 RIGHT SUPERIOR POST CALF
--- NOTE | 2024-06-18 13:52 | WC ---
PHOTO 06/18/24 RIGHT BUTTOCKS
--- NOTE | 2024-06-20 08:38 | VDLE_ITS ---
Reason For Study: Wound RIGHT LEFT CFV is compressible, spontaneous, phasic, Acute deep vein thrombosis is noted in the competent and demonstrates normal left CFV and FV prox-mid. It is augmentation. NONCOMPRESSIBLE and dilated. FV is compressible, spontaneous, phasic, FV distal is compressible. competent and demonstrates normal POP V is compressible, spontaneous, phasic, augmentation. competent and demonstrates normal POP V is compressible, phasic, and augmentation. INCOMPETENT for greater than 1.0 second. T/P Trunk is compressible. T/P Trunk is compressible. PTV is compressible. PTV is compressible. LT PerV is compressible. RT PerV is compressible. Nonvascularized structure is noted in the SFJ is competent and measures 0.67 cm. left popliteal space and measures 0.57 x 2.54 GSV proximal thigh measures 0.60 x 0.64 cm. cm. GSV above knee is INCOMPETENT for greater SFJ is competent and measures 0.83 cm. than 0.5 seconds. GSV proximal thigh measures 0.46 x 0.46 cm. GSV at knee measures 0.55 x 0.55 cm. GSV at knee measures 0.43 x 0.43 cm. GSV below knee is competent. GSV is competent throughout. ASV mid calf is INCOMPETENT for greater than SSV mid calf is INCOMPETENT for greater than 0.5 seconds and measures 0.23 x 0.27 cm. 0.5 seconds and measures 0.17 x 0.21 cm. SSV mid calf is competent and measures 0.31 x 0.32 cm. Procedure This is a venous duplex using B-mode, color flow and spectral Doppler. Exam performed in department. Patient was scanned in reverse Trendelenburg position during reflux assessment. A preliminary report was called and/or faxed to Brittny RUDOLPH. LEAS not performed due to positive DVT left leg. VL/Venous Duplex US - Zaki Extrem Interpretation Summary Acute deep vein thrombosis is noted in the left common femoral vein. Acute deep vein thrombosis is noted in the left femoral vein. The remainder of the left lower extremity deep venous system is patent and compressible. Deep veins of the right lower extremity are patent and compressible segmentally. There is no evidence of right lower extremity deep vein thrombosis . Valvular incompetence is noted in the right popliteal vein. Great saphenous veins are pa tent bilaterally. Sapheno-femoral junctions are bilaterally competent. The right great saphenous vein is incompetent above the knee. The right great saphenous vein is competent below the knee. The left great saphenous vein is competent segmentally. The right small saphenous vein is competent. The left small saphenous vein is incompetent. The accessory saphenous vein in the right mid-calf is inco mpetent. A non- vascular, hypoechoic structure is noted in the left popliteal space, measuring 0.57 cm x 2.54 cm. This probably represents a popliteal cyst. Clinical correlation is advised. Ordering Physician: Scott Sylvester Referring Physician: Christina Modi M.D. Performed By: Renee Mora RVT
[2024-06-25 11:09] VITALS: BP 163/75; PULSE 75; RESP 20; TEMP 36.7
--- NOTE | 2024-06-25 12:03 | PCM.WC.PN ---
History of Present Illness Date of Service: 06/25/24 Chief Complaint: RLE wound History of Wound: Patient is an 83-year-old female who resides at [facility]. She is referred by facility for evaluation and management of right lower extremity wound which has been ongoing for an indeterminate amount of time. Patient cannot say and we did not receive any paperwork/information from the facility. Patient is well-known to the facility. She does get help with aides at her assisted living facility. She is not the most reliable historian with known history of dementia and some confusion noted here today. She is not sure when or how this wound started. She does not recall a specific injury. She did have compression wraps donned to the bilateral lower extremity. Most of her pain is to the right heel area. She is not diabetic. She does not smoke. She is ambulatory and denies claudication type symptoms. She does have bilateral lower extremity edema, seems to be fairly well controlled with compression today. The wound on her R posterolateral calf and heel is down to subcutaneous tissue with serous drainage. There is no significant erythema, appreciable warmth, excessive tenderness, foul odor, focal swelling/fluctuance/induration. Denies N/V, F/C. Progress of Wound: I am here to evaluate the continued treatment for her right and left buttocks from [facility]. Both are measuring smaller she is complaining of itching now and less pain. No sign of infection noted Subjective Subjective Patient is happy with outcomes Objective Data Objective Data No sign of infection measurements are smaller treatment is working well we will continue using the Xeroform with Adaptic and foam dressings. Vital Signs: Vital Signs Temp Pulse Resp BP O2 Del Method 98.1 F 75 20 H 163/75 H Room Air 06/25/24 11:09 06/25/24 11:09 06/25/24 11:09 06/25/24 11:09 06/18/24 11:16 Oxygen Delivery Method Room Air Debridement Note Debridement Note Post-Debridement Measurements and Additional Note: Post-Debridement Measurements/Treatment NIRU - Nurse 1 - General Ulcer Assessment Start: 06/04/24 11:19 Freq: Status: Active Protocol: STACIA Activity Type Activity Date Activity User E-sign Co-sign Detail Recorded Client Recorded Date Recorded By Document 06/04/24 11:19 MT [id number] 06/04/24 11:31 MT Document 06/11/24 10:55 GM [id number] 06/11/24 11:10 GM Document 06/18/24 11:16 KW [id number] 06/18/24 11:27 KW Document 06/25/24 11:09 DL [id number] 06/25/24 11:34 DL 06/04/24 06/11/24 06/18/24 11:19 10:55 11:16 WC - Today's Visit Information Type of service Initial Visit Follow-up Visit Follow-up Visit (Physician/STEM FRAZER (Physician/STEM FRAZER ) ) Arrival Mode Ambulatory, Ambulatory, Ambulatory, Walker Walker Walker Transfer Assistance Transfer Assist (Other) Patient Identification Verified (Name & Yes Yes Yes ) Patient Requires Transmission-Based Precautions Vital Signs Temperature (97.8 F-99.1 F) 96.8 F L 96.6 F L Temperature Source Temporal Oral Pulse Rate (60-100) 67 80 Pulse Location Monitor Monitor Monitor Respiratory Rate (12-18) 16 16 18 Respiratory rate source Observation Observation Observation Oxygen Delivery Method Room Air Room Air Room Air Blood Pressure (90/60-120/80) 147/60 H 160/73 H Blood Pressure Mean (mm Hg) 89 102 Source Monitor Monitor Monitor Position Semi-Fowlers Sitting Semi-Fowlers Blood Pressure Location Right Arm Left Arm Left Arm History Since Last Visit- (Skip if this is Patient's initial visit) Have you changed medications since your No No last visit? Any new allergies or adverse reactions No No Had a fall/change in ADL's that may No No increase risk of falls Signs or symptoms of abuse and/or No No neglect since last visit Have you been in the hospital since your No No last visit? Has dressing in place as prescribed Yes Yes Has compression in place as prescribed Yes Yes Has offloadiing in place as prescribed N/A Experienced any changes in pain level or No No management Left Footwear Regular Shoe Regular Shoe Regular Shoe Right Footwear Regular Shoe Regular Shoe Regular Shoe Pain Scale: 0-10 Numeric Is Patient Pain Free? Yes Yes Yes 06/25/24 11:09 - Today's Visit Information Type of service Follow-up Visit (Physician/STEM FRAZER ) Arrival Mode Ambulatory, Walker Transfer Assistance Manual Transfer Assist (Other) x2 Patient Identification Verified (Name & Yes ) Patient Requires Transmission-Based No Precautions Vital Signs Temperature (97.8 F-99.1 F) 98.1 F Temperature Source Temporal Pulse Rate (60-100) 75 Pulse Location Monitor Respiratory Rate (12-18) 20 H Respiratory rate source Observation Oxygen Delivery Method Blood Pressure (90/60-120/80) 163/75 H Blood Pressure Mean (mm Hg) 104 Source Monitor Position Blood Pressure Location History Since Last Visit- (Skip if this is Patient's initial visit) Have you changed medications since your No last visit? Any new allergies or adverse reactions No Had a fall/change in ADL's that may No increase risk of falls Signs or symptoms of abuse and/or No neglect since last visit Have you been in the hospital since your No last visit? Has dressing in place as prescribed Yes Has compression in place as prescribed Yes Has offloadiing in place as prescribed Yes Experienced any changes in pain level or No management Left Footwear Right Footwear Pain Scale: 0-10 Numeric Is Patient Pain Free? Yes WC - Nurse 1 - General Ulcer Measurement Start: 06/04/24 11:19 Freq: Status: Active Protocol: Activity Type Activity Date Activity User E-sign Co-sign Detail Recorded Client Recorded Date Recorded By Document 06/04/24 11:19 MT [id number] 06/04/24 11:31 MT Document 06/11/24 10:55 GM [id number] 06/11/24 11:10 GM Document 06/18/24 11:16 KW [id number] 06/18/24 11:27 KW Document 06/18/24 12:02 RB [id number] 06/18/24 12:03 RB Document 06/25/24 11:09 DL [id number] 06/25/24 11:34 DL 06/04/24 06/11/24 06/18/24 11:19 10:55 11:16 Wound Center Nurse 1 #11 R INF POST CALF -Current Size (cm) - Length 0.1 -Current Size (cm) - Width 0.1 -Current Size (cm) - Depth 0.1 -Total Square Cm 0.01 -Date of Last Picture (Recall this 06/04/24 field) -Exudate Amt Small -Exudate Type Serosanguineous -Wound Margin Distinct, Outline Attached -Granulation Amt Large (67-100%) -Granulation Quality Red -Texture (Maryann-wound Skin Appearance) Assessed -Moisture (Maryann-wound Skin Appearance) Assessed -Color (Maryann-wound Skin Appearance) Assessed -Ulcer Cleansing Soap and Water -Foul Odor after Cleansing No -Anesthetic Used 5% Lidocaine Gel 15. RIGHT BUTTOCK CLUSTER -Combined with other wound -Current Size (cm) - Length -Current Size (cm) - Width -Current Size (cm) - Depth -Total Square Cm -Photo Taken -Tunneling -Undermining/Tunneling -Circular Undermining -Exudate Amt -Exudate Type -Wound Margin -Granulation Amt -Granulation Quality -Slough/Fibrin -Necrosis Amt -Necrotic Tissue Type -Structure Exposed -Texture (Maryann-wound Skin Appearance) -Moisture (Maryann-wound Skin Appearance) -Color (Maryann-wound Skin Appearance) -Temperature (Maryann-wound Skin Appearance) -Tenderness on Palpation (Maryann-wound Skin Appearance) -Ulcer Cleansing -Foul Odor after Cleansing -Anesthetic Used 14. LEFT BUTTOCK -Combined with other wound -Current Size (cm) - Length -Current Size (cm) - Width -Current Size (cm) - Depth -Total Square Cm -Photo Taken -Tunneling -Undermining/Tunneling -Circular Undermining -Exudate Amt -Exudate Type -Wound Margin -Granulation Amt -Granulation Quality -Slough/Fibrin -Necrosis Amt -Necrotic Tissue Type -Structure Exposed -Texture (Maryann-wound Skin Appearance) -Moisture (Maryann-wound Skin Appearance) -Color (Maryann-wound Skin Appearance) -Temperature (Maryann-wound Skin Appearance) -Tenderness on Palpation (Maryann-wound Skin Appearance) -Ulcer Cleansing -Foul Odor after Cleansing -Anesthetic Used #13 Right Inferior Knee -Combined with other wound No -Current Size (cm) - Length 1.3 1 -Current Size (cm) - Width 0.9 0.8 -Current Size (cm) - Depth 0.1 0.1 -Total Square Cm 1.17 0.8 -Date of Last Picture (Recall this 06/11/24 06/18/24 field) -Photo Taken Yes -Epithelialization None Present -Tunneling No -Undermining/Tunneling No -Circular Undermining No -Exudate Amt None Present None Present -Wound Margin Distinct, Outline Attached -Granulation Amt -Granulation Quality -Necrosis Amt Large (67-100%) -Necrotic Tissue Type Eschar -Structure Exposed -Texture (Maryann-wound Skin Appearance) Assessed Assessed -Moisture (Maryann-wound Skin Appearance) Assessed Assessed -Color (Maryann-wound Skin Appearance) Erythema Assessed, Erythema -Temperature (Maryann-wound Skin No Abnormality No Abnormality Appearance) (Pt Warm) (Pt Warm) -Tenderness on Palpation (Maryann-wound No No Skin Appearance) -Ulcer Cleansing Soap and Water Soap and Water -Foul Odor after Cleansing No No -Anesthetic Used 5% Lidocaine 5% Lidocaine Gel Gel #12 R ACHILLES -Current Size (cm) - Length 1.6 0.2 0.4 -Current Size (cm) - Width 2 0.2 0.7 -Current Size (cm) - Depth 0.2 0.1 0.1 -Total Square Cm 3.2 0.04 0.28 -Date of Last Picture (Recall this 06/04/24 06/18/24 field) -Photo Taken No -Epithelialization Small 1-33% -Tunneling No -Undermining/Tunneling No -Circular Undermining No -Exudate Amt Small Small Small -Exudate Type Serosanguineous Yellow/Green Serosanguineous -Wound Margin Distinct, Distinct, Distinct, Outline Outline Outline Attached Attached Attached -Granulation Amt Large (67-100%) Small (1-33%) Large (67-100%) -Granulation Quality Red [place] -Necrosis Amt Small (1-33%) Small (1-33%) -Necrotic Tissue Type Eschar Adherent Slough -Structure Exposed -Texture (Maryann-wound Skin Appearance) Assessed Assessed Assessed -Moisture (Maryann-wound Skin Appearance) Assessed Assessed Assessed -Color (Maryann-wound Skin Appearance) Assessed, Assessed Assessed Erythema -Temperature (Maryann-wound Skin No Abnormality No Abnormality No Abnormality Appearance) (Pt Warm) (Pt Warm) (Pt Warm) -Tenderness on Palpation (Maryann-wound No Yes No Skin Appearance) -Ulcer Cleansing Soap and Water Soap and Water Soap and Water -Foul Odor after Cleansing No No No -Anesthetic Used 5% Lidocaine 5% Lidocaine 5% Lidocaine Gel Gel Gel #10 R SUP POST CALF -Current Size (cm) - Length 1.2 1.5 0.8 -Current Size (cm) - Width 1 0.5 0.2 -Current Size (cm) - Depth 0.1 0.1 0.1 -Total Square Cm 1.2 0.75 0.16 -Date of Last Picture (Recall this 06/04/24 06/18/24 field) -Photo Taken No -Epithelialization None Present -Tunneling No -Undermining/Tunneling No -Circular Undermining No -Change in Wound Grade/Stage No -Exudate Amt Medium Small Small -Exudate Type Serosanguineous Yellow/Green Serosanguineous -Wound Margin Distinct, Distinct, Distinct, Outline Outline Outline Attached Attached Attached -Granulation Amt Small (1-33%) Small (1-33%) Large (67-100%) -Granulation Quality [place] -Slough/Fibrin No -Necrosis Amt Large (67-100%) None Present (0 Small (1-33%) %) -Necrotic Tissue Type Adherent Slough Adherent Slough -Structure Exposed -Texture (Maryann-wound Skin Appearance) Assessed Assessed Assessed -Moisture (Maryann-wound Skin Appearance) Assessed, Assessed Assessed Weeping -Color (Maryann-wound Skin Appearance) Assessed Assessed Assessed -Temperature (Maryann-wound Skin No Abnormality No Abnormality No Abnormality Appearance) (Pt Warm) (Pt Warm) (Pt Warm) -Tenderness on Palpation (Maryann-wound No Yes No Skin Appearance) -Ulcer Cleansing Soap and Water Soap and Water Soap and Water -Foul Odor after Cleansing No No No -Anesthetic Used 5% Lidocaine 5% Lidocaine 5% Lidocaine Gel Gel Gel Lower Limb Edema Present No Right Calf (cm) 39 40.0 36.5 Right Ankle (cm) 23.5 23.0 21.5 Left Calf (cm) 36.5 Left Ankle (cm) 21.5 06/18/24 06/25/24 12:02 11:09 Wound Center Nurse 1 #11 R INF POST CALF -Current Size (cm) - Length -Current Size (cm) - Width -Current Size (cm) - Depth -Total Square Cm -Date of Last Picture (Recall this field) -Exudate Amt -Exudate Type -Wound Margin -Granulation Amt -Granulation Quality -Texture (Maryann-wound Skin Appearance) -Moisture (Maryann-wound Skin Appearance) -Color (Maryann-wound Skin Appearance) -Ulcer Cleansing -Foul Odor after Cleansing -Anesthetic Used 15. RIGHT BUTTOCK CLUSTER -Combined with other wound No -Current Size (cm) - Length 2 3 -Current Size (cm) - Width 0.5 1.2 -Current Size (cm) - Depth 0.1 0.1 -Total Square Cm 1.0 3.6 -Photo Taken Yes -Tunneling No -Undermining/Tunneling No -Circular Undermining No -Exudate Amt Medium Small -Exudate Type Serosanguineous -Wound Margin Distinct, Indistinct, Non Outline -Visible Attached -Granulation Amt Medium (34-66%) Large (67-100%) -Granulation Quality [place] -Slough/Fibrin Yes -Necrosis Amt Medium (34-66%) None Present (0 %) -Necrotic Tissue Type Adherent Slough -Structure Exposed N/A N/A -Texture (Maryann-wound Skin Appearance) Assessed, Excoriation, Excoriation Friable -Moisture (Maryann-wound Skin Appearance) Assessed No Abnormality -Color (Maryann-wound Skin Appearance) Assessed Erythema -Temperature (Maryann-wound Skin No Abnormality No Abnormality Appearance) (Pt Warm) (Pt Warm) -Tenderness on Palpation (Maryann-wound No Skin Appearance) -Ulcer Cleansing Wound Cleanser Soap and Water -Foul Odor after Cleansing No No -Anesthetic Used 5% Lidocaine Gel 14. LEFT BUTTOCK -Combined with other wound No -Current Size (cm) - Length 0.1 0.7 -Current Size (cm) - Width 0.1 0.4 -Current Size (cm) - Depth 0.1 0.1 -Total Square Cm 0.01 0.28 -Photo Taken Yes -Tunneling No -Undermining/Tunneling No -Circular Undermining No -Exudate Amt Medium Small -Exudate Type Serosanguineous -Wound Margin Distinct, Distinct, Outline Outline Attached Attached -Granulation Amt Medium (34-66%) Large (67-100%) -Granulation Quality [place] Pale,[place] -Slough/Fibrin Yes -Necrosis Amt Medium (34-66%) None Present (0 %) -Necrotic Tissue Type Adherent Slough -Structure Exposed N/A N/A -Texture (Maryann-wound Skin Appearance) Excoriation Scarring -Moisture (Maryann-wound Skin Appearance) Assessed No Abnormality -Color (Maryann-wound Skin Appearance) Assessed No Abnormality -Temperature (Maryann-wound Skin No Abnormality No Abnormality Appearance) (Pt Warm) (Pt Warm) -Tenderness on Palpation (Maryann-wound No No Skin Appearance) -Ulcer Cleansing Wound Cleanser Soap and Water -Foul Odor after Cleansing No No -Anesthetic Used 5% Lidocaine Gel #13 Right Inferior Knee -Combined with other wound -Current Size (cm) - Length 0 -Current Size (cm) - Width 0 -Current Size (cm) - Depth 0 -Total Square Cm 0 -Date of Last Picture (Recall this field) -Photo Taken Yes -Epithelialization -Tunneling -Undermining/Tunneling -Circular Undermining -Exudate Amt None Present -Wound Margin Indistinct, Non -Visible -Granulation Amt Large (67-100%) -Granulation Quality [place] -Necrosis Amt None Present (0 %) -Necrotic Tissue Type -Structure Exposed N/A -Texture (Maryann-wound Skin Appearance) Scarring -Moisture (Maryann-wound Skin Appearance) No Abnormality -Color (Maryann-wound Skin Appearance) No Abnormality -Temperature (Maryann-wound Skin No Abnormality Appearance) (Pt Warm) -Tenderness on Palpation (Maryann-wound No Skin Appearance) -Ulcer Cleansing -Foul Odor after Cleansing No -Anesthetic Used #12 R ACHILLES -Current Size (cm) - Length 0.7 -Current Size (cm) - Width 0.7 -Current Size (cm) - Depth 0.1 -Total Square Cm 0.49 -Date of Last Picture (Recall this field) -Photo Taken -Epithelialization -Tunneling -Undermining/Tunneling -Circular Undermining -Exudate Amt Small -Exudate Type -Wound Margin Distinct, Outline Attached -Granulation Amt Small (1-33%) -Granulation Quality [place] -Necrosis Amt Small (1-33%) -Necrotic Tissue Type Adherent Slough -Structure Exposed N/A -Texture (Maryann-wound Skin Appearance) Scarring -Moisture (Maryann-wound Skin Appearance) No Abnormality -Color (Maryann-wound Skin Appearance) No Abnormality -Temperature (Maryann-wound Skin No Abnormality Appearance) (Pt Warm) -Tenderness on Palpation (Maryann-wound No Skin Appearance) -Ulcer Cleansing Soap and Water -Foul Odor after Cleansing No -Anesthetic Used 5% Lidocaine Gel #10 R SUP POST CALF -Current Size (cm) - Length 1 -Current Size (cm) - Width 0.6 -Current Size (cm) - Depth 0.2 -Total Square Cm 0.6 -Date of Last Picture (Recall this field) -Photo Taken -Epithelialization -Tunneling -Undermining/Tunneling -Circular Undermining -Change in Wound Grade/Stage -Exudate Amt Small -Exudate Type Serosanguineous -Wound Margin Distinct, Outline Attached -Granulation Amt Small (1-33%) -Granulation Quality Pale,[place] -Slough/Fibrin -Necrosis Amt None Present (0 %) -Necrotic Tissue Type -Structure Exposed N/A -Texture (Maryann-wound Skin Appearance) Scarring -Moisture (Maryann-wound Skin Appearance) No Abnormality -Color (Maryann-wound Skin Appearance) No Abnormality -Temperature (Maryann-wound Skin No Abnormality Appearance) (Pt Warm) -Tenderness on Palpation (Maryann-wound No Skin Appearance) -Ulcer Cleansing Soap and Water -Foul Odor after Cleansing No -Anesthetic Used 5% Lidocaine Gel Lower Limb Edema Present Right Calf (cm) 36 Right Ankle (cm) 21.6 Left Calf (cm) 35.2 Left Ankle (cm) 21.5 WC - Nurse 2 - General Ulcer CM Notes Start: 06/04/24 11:19 Freq: Status: Active Protocol: Activity Type Activity Date Activity User E-sign Co-sign Detail Recorded Client Recorded Date Recorded By Document 06/04/24 11:56 JF [id number] 06/04/24 12:05 JF Document 06/11/24 11:33 DS [id number] 06/11/24 11:34 DS Edit Result 06/11/24 11:33 DS (1) [id number] 06/12/24 10:39 DS Document 06/18/24 11:39 JF [id number] 06/18/24 11:42 JF Document 06/18/24 12:01 BMF [id number] 06/18/24 12:07 BMF (1) #13 Right Inferior Knee - Wound/Ulcer Outcome => Not Healed 06/04/24 06/11/24 06/18/24 11:56 11:33 11:39 Wound Center Nurse 2 #15- R BUTTOCK -Time -Correct Patient -Correct Side, Site, Position -Correct Procedure -Procedure Performed -Type of Procedure -Clinical Debridement -Tissue Removed -Post Debridement (cm) - Length -Post Debridement (cm) - Width -Post Debridement (cm) - Depth -Total Square (Post) (cm) -Area of Debridement (cm) - Length -Area of Debridement (cm) - Width -Total Square (Area) (cm) -Tunneling -Undermining/Tunneling -Circular Undermining -Wound/Ulcer Outcome -Ulcer Cleansing -Foul Odor after Cleansing -Bioengineered Tissue -Bleeding Controlled with -Treatment Response -Debridement - Subq, 1st 20sq cm #14- L BUTTOCK -Time -Correct Patient -Correct Side, Site, Position -Correct Procedure -Procedure Performed -Type of Procedure -Clinical Debridement -Tissue Removed -Post Debridement (cm) - Length -Post Debridement (cm) - Width -Post Debridement (cm) - Depth -Total Square (Post) (cm) -Area of Debridement (cm) - Length -Area of Debridement (cm) - Width -Total Square (Area) (cm) -Tunneling -Undermining/Tunneling -Circular Undermining -Wound/Ulcer Outcome -Ulcer Cleansing -Foul Odor after Cleansing -Bioengineered Tissue -Bleeding Controlled with -Treatment Response -Debridement - Subq, 1st 20sq cm #11 R INF POST CALF -Time 11:59 -Correct Patient Yes -Correct Side, Site, Position No -Correct Procedure No -Procedure Performed No -Post Debridement (cm) - Length 0 -Post Debridement (cm) - Width 0 -Post Debridement (cm) - Depth 0 -Total Square (Post) (cm) 0 -Area of Debridement (cm) - Length 0 -Area of Debridement (cm) - Width 0 -Total Square (Area) (cm) 0 -Tunneling No -Undermining/Tunneling No -Circular Undermining No -Wound/Ulcer Outcome Not Healed -Ulcer Cleansing Rinsed/ Irrigated with Saline -Foul Odor after Cleansing No -Bioengineered Tissue No -Bleeding Controlled with Pressure -Treatment Response Procedure Tolerated Well -Offloading No -Debridement - Subq, 1st 20sq cm No #13 Right Inferior Knee -Time 11:33 -Correct Patient Yes No -Correct Side, Site, Position No -Correct Procedure No -Procedure Performed No No -Wound/Ulcer Outcome Not Healed #12 R ACHILLES -Time 11:58 11:33 11:41 -Correct Patient Yes Yes Yes -Correct Side, Site, Position Yes Yes Yes -Correct Procedure Yes Yes Yes -Procedure Performed Yes Yes Yes -Type of Procedure Debridement Debridement Debridement -Clinical Debridement Subcutaneous Subcutaneous Subcutaneous -Tissue Removed Subcutaneous Subcutaneous Subcutaneous -Post Debridement (cm) - Length 1.4 0.6 0.6 -Post Debridement (cm) - Width 1.4 1.1 1.0 -Post Debridement (cm) - Depth 0.2 0.1 0.1 -Total Square (Post) (cm) 1.96 0.66 0.60 -Area of Debridement (cm) - Length 1.4 0.6 0.6 -Area of Debridement (cm) - Width 1.4 1.1 1.0 -Total Square (Area) (cm) 1.96 0.66 0.60 -Tunneling No No No -Undermining/Tunneling No No No -Circular Undermining No No No -Wound/Ulcer Outcome Not Healed Not Healed Not Healed -Ulcer Cleansing Rinsed/ Rinsed/ Rinsed/ Irrigated with Irrigated with Irrigated with Saline Saline Saline -Foul Odor after Cleansing No No No -Bioengineered Tissue No No No -Bleeding Controlled with Pressure Pressure Pressure -Treatment Response Procedure Procedure Procedure Tolerated Well Tolerated Well Tolerated Well -Offloading No No -Debridement - Subq, 1st 20sq cm No Yes No #10 R SUP POST CALF -Time 12:00 11:33 11:41 -Correct Patient Yes Yes Yes -Correct Side, Site, Position Yes Yes Yes -Correct Procedure Yes Yes Yes -Procedure Performed Yes Yes Yes -Type of Procedure Debridement Debridement Debridement -Clinical Debridement Subcutaneous Subcutaneous Subcutaneous -Tissue Removed Subcutaneous Subcutaneous Subcutaneous -Post Debridement (cm) - Length 1.5 1.4 1.5 -Post Debridement (cm) - Width 0.9 0.8 1.0 -Post Debridement (cm) - Depth 0.2 0.1 0.1 -Total Square (Post) (cm) 1.35 1.12 1.50 -Area of Debridement (cm) - Length 1.5 1.4 1.5 -Area of Debridement (cm) - Width 0.9 0.8 1.0 -Total Square (Area) (cm) 1.35 1.12 1.50 -Tunneling No No No -Undermining/Tunneling No No No -Circular Undermining No No No -Wound/Ulcer Outcome Not Healed Not Healed Not Healed -Ulcer Cleansing Rinsed/ Rinsed/ Rinsed/ Irrigated with Irrigated with Irrigated with Saline Saline Saline -Foul Odor after Cleansing No No No -Bioengineered Tissue No No No -Bleeding Controlled with Pressure Pressure Pressure -Treatment Response Procedure Procedure Procedure Tolerated Well Tolerated Well Tolerated Well -Offloading No No -Debridement - Subq, 1st 20sq cm Yes No Yes Pain Scale: 0-10 Numeric Is Patient Pain Free? Yes Yes Yes 06/18/24 12:01 Wound Center Nurse 2 #15- R BUTTOCK -Time 12:04 -Correct Patient Yes -Correct Side, Site, Position Yes -Correct Procedure Yes -Procedure Performed Yes -Type of Procedure Debridement -Clinical Debridement Subcutaneous -Tissue Removed Subcutaneous -Post Debridement (cm) - Length 3 -Post Debridement (cm) - Width 1 -Post Debridement (cm) - Depth 0.1 -Total Square (Post) (cm) 3 -Area of Debridement (cm) - Length 3 -Area of Debridement (cm) - Width 1 -Total Square (Area) (cm) 3 -Tunneling No -Undermining/Tunneling No -Circular Undermining No -Wound/Ulcer Outcome Not Healed -Ulcer Cleansing Rinsed/ Irrigated with Saline -Foul Odor after Cleansing No -Bioengineered Tissue No -Bleeding Controlled with Pressure -Treatment Response Procedure Tolerated Well -Debridement - Subq, 20sq cm No #14- L BUTTOCK -Time 12:04 -Correct Patient Yes -Correct Side, Site, Position Yes -Correct Procedure Yes -Procedure Performed Yes -Type of Procedure Debridement -Clinical Debridement Subcutaneous -Tissue Removed Subcutaneous -Post Debridement (cm) - Length 1 -Post Debridement (cm) - Width 0.5 -Post Debridement (cm) - Depth 0.1 -Total Square (Post) (cm) 0.5 -Area of Debridement (cm) - Length 1 -Area of Debridement (cm) - Width 0.5 -Total Square (Area) (cm) 0.5 -Tunneling No -Undermining/Tunneling No -Circular Undermining No -Wound/Ulcer Outcome Not Healed -Ulcer Cleansing Rinsed/ Irrigated with Saline -Foul Odor after Cleansing No -Bioengineered Tissue No -Bleeding Controlled with Pressure -Treatment Response Procedure Tolerated Well -Debridement - Subq, 1st 20sq cm Yes #11 R INF POST CALF -Time -Correct Patient -Correct Side, Site, Position -Correct Procedure -Procedure Performed -Post Debridement (cm) - Length -Post Debridement (cm) - Width -Post Debridement (cm) - Depth -Total Square (Post) (cm) -Area of Debridement (cm) - Length -Area of Debridement (cm) - Width -Total Square (Area) (cm) -Tunneling -Undermining/Tunneling -Circular Undermining -Wound/Ulcer Outcome -Ulcer Cleansing -Foul Odor after Cleansing -Bioengineered Tissue -Bleeding Controlled with -Treatment Response -Offloading -Debridement - Subq, 1st 20sq cm #13 Right Inferior Knee -Time -Correct Patient -Correct Side, Site, Position -Correct Procedure -Procedure Performed -Wound/Ulcer Outcome #12 R ACHILLES -Time -Correct Patient -Correct Side, Site, Position -Correct Procedure -Procedure Performed -Type of Procedure -Clinical Debridement -Tissue Removed -Post Debridement (cm) - Length -Post Debridement (cm) - Width -Post Debridement (cm) - Depth -Total Square (Post) (cm) -Area of Debridement (cm) - Length -Area of Debridement (cm) - Width -Total Square (Area) (cm) -Tunneling -Undermining/Tunneling -Circular Undermining -Wound/Ulcer Outcome -Ulcer Cleansing -Foul Odor after Cleansing -Bioengineered Tissue -Bleeding Controlled with -Treatment Response -Offloading -Debridement - Subq, 1st 20sq cm #10 R SUP POST CALF -Time -Correct Patient -Correct Side, Site, Position -Correct Procedure -Procedure Performed -Type of Procedure -Clinical Debridement -Tissue Removed -Post Debridement (cm) - Length -Post Debridement (cm) - Width -Post Debridement (cm) - Depth -Total Square (Post) (cm) -Area of Debridement (cm) - Length -Area of Debridement (cm) - Width -Total Square (Area) (cm) -Tunneling -Undermining/Tunneling -Circular Undermining -Wound/Ulcer Outcome -Ulcer Cleansing -Foul Odor after Cleansing -Bioengineered Tissue -Bleeding Controlled with -Treatment Response -Offloading -Debridement - Subq, 1st 20sq cm Pain Scale: 0-10 Numeric Is Patient Pain Free? Yes WC - Nurse 3 - General Ulcer D/C NN Start: 06/04/24 11:19 Freq: Status: Active Protocol: Activity Type Activity Date Activity User E-sign Co-sign Detail Recorded Client Recorded Date Recorded By Document 06/04/24 12:24 RB [id number] 06/04/24 12:27 RB Document 06/11/24 11:51 GM [id number] 06/11/24 11:52 GM Document 06/18/24 11:48 KW [id number] 06/18/24 11:49 KW Document 06/18/24 12:07 [facility] [id number] 06/18/24 12:14 BMF 06/04/24 06/11/24 06/18/24 12:24 11:51 11:48 [facility] Nurse 3 15. RIGHT BUTTOCK CLUSTER -Ulcer Cleansing -Foul Odor after Cleansing -Primary Dressing Applied -Other Dressing -Silicone Border Foam 4x4 14. LEFT BUTTOCK -Ulcer Cleansing -Foul Odor after Cleansing -Primary Dressing Applied -Other Dressing -Silicone Border Foam 4x4 #13 Right Inferior Knee -Ulcer Cleansing Not Cleansed -Foul Odor after Cleansing No -Other Dressing HYDROGEL -Primary Dressing Covered/Secured with Dry Gauze, Dry Gauze,Dry Secured with Gauze & Roll Tape Gauze,Secured with Tape #12 R ACHILLES -Ulcer Cleansing Not Cleansed -Foul Odor after Cleansing No -Other Dressing HYDROGEL HYDROGEL -Primary Dressing Covered/Secured with Dry Gauze,Dry Dry Gauze,Dry Dry Gauze,Dry Gauze & Roll Gauze & Roll Gauze & Roll Gauze,Secured Gauze,Secured Gauze,Secured with Tape with Tape with Tape #10 R SUP POST CALF -Ulcer Cleansing Not Cleansed -Foul Odor after Cleansing No -Other Dressing HYDROGEL HYDROGEL -Primary Dressing Covered/Secured with Dry Gauze,Dry Dry Gauze Dry Gauze,Dry Gauze & Roll Gauze & Roll Gauze,Secured Gauze,Secured with Tape with Tape BILAT LE -Lotion applied to leg before No compression wrap -Tubular Bandage Double Layer Double Layer Double Layer -Size of Tubigrip Used Size E Size E Size D -Size D ($) 4 -Size E ($) 4 2 Treatment Response Procedure Procedure Tolerated Well Tolerated Well Pain Scale: 0-10 Numeric Is Patient Pain Free? Yes Yes Yes WC - Visit Discharge Discharge Condition Stable Unstable Stable Ambulatory Status Ambulatory, Ambulatory Ambulatory, Walker Walker Transportation [place] Private Auto Private Auto Medication Reconcilliation completed & No No provided to patient/care provider Clinical Summary of Care Provided Yes Yes Facility Type 06/18/24 12:07 Wound Care Center Nurse 3 15. RIGHT BUTTOCK CLUSTER -Ulcer Cleansing Rinsed/ Irrigated with Saline -Foul Odor after Cleansing No -Primary Dressing Applied NonAdherent Contact Layer, Silicone Border Foam 4x4 -Other Dressing XEROFORM, TOP W / ADAPTIC -Silicone Border Foam 4x4 1 14. LEFT BUTTOCK -Ulcer Cleansing Rinsed/ Irrigated with Saline -Foul Odor after Cleansing No -Primary Dressing Applied NonAdherent Contact Layer, Silicone Border Foam 4x4 -Other Dressing XEROFORM TOP W/ ADAPTIC -Silicone Border Foam 4x4 1 #13 Right Inferior Knee -Ulcer Cleansing -Foul Odor after Cleansing -Other Dressing -Primary Dressing Covered/Secured with #12 R ACHILLES -Ulcer Cleansing -Foul Odor after Cleansing -Other Dressing -Primary Dressing Covered/Secured with #10 R SUP POST CALF -Ulcer Cleansing -Foul Odor after Cleansing -Other Dressing -Primary Dressing Covered/Secured with BILAT LE -Lotion applied to leg before compression wrap -Tubular Bandage -Size of Tubigrip Used -Size D ($) -Size E ($) Treatment Response Procedure Tolerated Well Pain Scale: 0-10 Numeric Is Patient Pain Free? Yes WC - Visit Discharge Discharge Condition Stable Ambulatory Status Ambulatory, Walker Transportation [place] Medication Reconcilliation completed & provided to patient/care provider Clinical Summary of Care Provided Facility Type [facility]
--- NOTE | 2024-06-25 14:22 | PCM.WC.PN ---
History of Present Illness Date of Service: 06/25/24 Chief Complaint: RLE wound History of Wound: Patient is an 81-year-old female who resides at [facility]. She is referred by facility for evaluation and management of right lower extremity wound which has been ongoing for an indeterminate amount of time. Patient cannot say and we did not receive any paperwork/information from the facility. She is well known to me as I have seen her here her in the past for similar wounds in approximately the same location most recently from 01/2023 to 06/2023. At her last appointment here in 06/2023, her calf wounds had healed completely and she was discharged with recommendation of continued 3M wraps to reduce risk of recurrence. She is not the most reliable historian with known history of dementia and some confusion noted here today. She is not sure when or how this wound started. She does not recall a specific injury. She reports that she has had compression wraps on her LLE but not on her RLE for unclear reasons. She does admit that she spends a lot of time sitting at a table coloring during the day with her legs hanging down. She also sleeps in a chair and is not sure she is always elevating her legs. She is not diabetic. She does not smoke. She is ambulatory and denies claudication type symptoms. She does have bilateral lower extremity edema, seems to be fairly well controlled with compression today. The wound on her R posterolateral calf is superficial with serous drainage. There is no significant erythema, appreciable warmth, excessive tenderness, foul odor, focal swelling/fluctuance/induration. Denies N/V, F/C. Progress of Wound: Right Achilles and calf wound stable with no sign of infection Subjective Subjective Mrs. Fox is a 83-year-old female presented wound care center today follow-up evaluation of right lower extremity full-thickness wound. She has been doing dressing changes with Santyl moist gauze dry sterile dressing and Tubigrip. She notices improvement to the wounds. She did have a fall at the [facility] living and has a scrape on her anterior right leg by her knee which is stable with no sign of infection. Denies constitutional symptoms. No other pedal complaints at this time. Objective Data Objective Data Vital Signs: Vital Signs Temp Pulse Resp BP O2 Del Method 98.1 F 75 20 H 163/75 H Room Air 06/25/24 11:09 06/25/24 11:09 06/25/24 11:09 06/25/24 11:09 06/18/24 11:16 Oxygen Delivery Method Room Air Physical Exam Narrative Vascular: DP and PT pulses are palpable to bilateral extremity. CFT is brisk. Nonpitting edema appreciated to bilateral lower extremity. No erythema. Skin temperature great is warm to warm from proximal ankles to distal digit bilateral. Neurological: Light touch intact. Patient does respond to painful stimuli. Dermatological: Full-thickness ulceration to the right posterior leg measuring 1.1 x 0.6 x 0.1 cm. Right posterior leg wound is granular nature with serous drainage. No sign of infection. Right Achilles area full-thickness wound measuring 0.7 x 1.2 x 0.1 cm. Achilles tendon ulceration shows evidence of eschar with some drainage. No sign of infection. Excisional debridement down to and including subcutaneous tissue with a number 5 mm dermal curette to the right posterior leg ulceration without incident. Predebridement measurement was 0.9 x 0.5 x 0.1 cm. Postdebridement measurement is 1.1 x 0.6 x 0.1 cm. Excisional debridement down to including subcutaneous tissue with a number 5 mm dermal curette to the right Achilles tendon ulceration without incident. Predebridement measurement was 0.5 x 1.0 x 0.1 cm. Postdebridement measurement is 0.7 x 1.2 x 0.1 cm. Musculoskeletal: Mild pain on palpation to both full-thickness ulceration. No pain with calf compression. Debridement Note Debridement Note Debridement Free Text: Excisional debridement down to and including subcutaneous tissue with a number 5 mm dermal curette to the right posterior leg ulceration without incident. Predebridement measurement was 0.9 x 0.5 x 0.1 cm. Postdebridement measurement is 1.1 x 0.6 x 0.1 cm. Excisional debridement down to including subcutaneous tissue with a number 5 mm dermal curette to the right Achilles tendon ulceration without incident. Predebridement measurement was 0.5 x 1.0 x 0.1 cm. Postdebridement measurement is 0.7 x 1.2 x 0.1 cm. Post-Debridement Measurements and Additional Note: Post-Debridement Measurements/Treatment WC - Nurse 1 - General Ulcer Assessment Start: 06/04/24 11:19 Freq: Status: Active Protocol: WC.LOWEXT Activity Type Activity Date Activity User E-sign Co-sign Detail Recorded Client Recorded Date Recorded By Document 06/04/24 11:19 MT [id number] 06/04/24 11:31 MT Document 06/11/24 10:55 GM [id number] 06/11/24 11:10 GM Document 06/18/24 11:16 KW [id number] 06/18/24 11:27 KW Document 06/25/24 11:09 DL [id number] 06/25/24 11:34 DL 06/04/24 06/11/24 06/18/24 11:19 10:55 11:16 WC - Today's Visit Information Type of service Initial Visit Follow-up Visit Follow-up Visit (Physician/WOOL MIXER (Physician/WOOL MIXER ) ) Arrival Mode Ambulatory, Ambulatory, Ambulatory, Walker Walker Walker Transfer Assistance Transfer Assist (Other) Patient Identification Verified (Name & Yes Yes Yes ) Patient Requires Transmission-Based Precautions Vital Signs Temperature (97.8 F-99.1 F) 96.8 F L 96.6 F L Temperature Source Temporal Oral Pulse Rate (60-100) 67 80 Pulse Location Monitor Monitor Monitor Respiratory Rate (12-18) 16 16 18 Respiratory rate source Observation Observation Observation Oxygen Delivery Method Room Air Room Air Room Air Blood Pressure (90/60-120/80) 147/60 H 160/73 H Blood Pressure Mean (mm Hg) 89 102 Source Monitor Monitor Monitor Position Semi-Fowlers Sitting Semi-Fowlers Blood Pressure Location Right Arm Left Arm Left Arm History Since Last Visit- (Skip if this is Patient's initial visit) Have you changed medications since your No No last visit? Any new allergies or adverse reactions No No Had a fall/change in ADL's that may No No increase risk of falls Signs or symptoms of abuse and/or No No neglect since last visit Have you been in the hospital since your No No last visit? Has dressing in place as prescribed Yes Yes Has compression in place as prescribed Yes Yes Has offloadiing in place as prescribed N/A Experienced any changes in pain level or No No management Left Footwear Regular Shoe Regular Shoe Regular Shoe Right Footwear Regular Shoe Regular Shoe Regular Shoe Pain Scale: 0-10 Numeric Is Patient Pain Free? Yes Yes Yes 06/25/24 11:09 WC - Today's Visit Information Type of service Follow-up Visit (Physician/WOOL MIXER ) Arrival Mode Ambulatory, Walker Transfer Assistance Manual Transfer Assist (Other) x2 Patient Identification Verified (Name & Yes ) Patient Requires Transmission-Based No Precautions Vital Signs Temperature (97.8 F-99.1 F) 98.1 F Temperature Source Temporal Pulse Rate (60-100) 75 Pulse Location Monitor Respiratory Rate (12-18) 20 H Respiratory rate source Observation Oxygen Delivery Method Blood Pressure (90/60-120/80) 163/75 H Blood Pressure Mean (mm Hg) 104 Source Monitor Position Blood Pressure Location History Since Last Visit- (Skip if this is Patient's initial visit) Have you changed medications since your No last visit? Any new allergies or adverse reactions No Had a fall/change in ADL's that may No increase risk of falls Signs or symptoms of abuse and/or No neglect since last visit Have you been in the hospital since your No last visit? Has dressing in place as prescribed Yes Has compression in place as prescribed Yes Has offloadiing in place as prescribed Yes Experienced any changes in pain level or No management Left Footwear Right Footwear Pain Scale: 0-10 Numeric Is Patient Pain Free? Yes - Nurse 1 - General Ulcer Measurement Start: 06/04/24 11:19 Freq: Status: Active Protocol: Activity Type Activity Date Activity User E-sign Co-sign Detail Recorded Client Recorded Date Recorded By Document 06/04/24 11:19 MT [id number] 06/04/24 11:31 MT Document 06/11/24 10:55 GM [id number] 06/11/24 11:10 GM Document 06/18/24 11:16 KW [id number] 06/18/24 11:27 KW Document 06/18/24 12:02 RB [id number] 06/18/24 12:03 RB Document 06/25/24 11:09 DL [id number] 06/25/24 11:34 DL 06/04/24 06/11/24 06/18/24 11:19 10:55 11:16 Wound Center Nurse 1 #11 R INF POST CALF -Current Size (cm) - Length 0.1 -Current Size (cm) - Width 0.1 -Current Size (cm) - Depth 0.1 -Total Square Cm 0.01 -Date of Last Picture (Recall this 06/04/24 field) -Exudate Amt Small -Exudate Type Serosanguineous -Wound Margin Distinct, Outline Attached -Granulation Amt Large (67-100%) -Granulation Quality Red -Texture (Maryann-wound Skin Appearance) Assessed -Moisture (Maryann-wound Skin Appearance) Assessed -Color (Maryann-wound Skin Appearance) Assessed -Ulcer Cleansing Soap and Water -Foul Odor after Cleansing No -Anesthetic Used 5% Lidocaine Gel 15. RIGHT BUTTOCK CLUSTER -Combined with other wound -Current Size (cm) - Length -Current Size (cm) - Width -Current Size (cm) - Depth -Total Square Cm -Photo Taken -Tunneling -Undermining/Tunneling -Circular Undermining -Exudate Amt -Exudate Type -Wound Margin -Granulation Amt -Granulation Quality -Slough/Fibrin -Necrosis Amt -Necrotic Tissue Type -Structure Exposed -Texture (Maryann-wound Skin Appearance) -Moisture (Maryann-wound Skin Appearance) -Color (Maryann-wound Skin Appearance) -Temperature (Maryann-wound Skin Appearance) -Tenderness on Palpation (Maryann-wound Skin Appearance) -Ulcer Cleansing -Foul Odor after Cleansing -Anesthetic Used 14. LEFT BUTTOCK -Combined with other wound -Current Size (cm) - Length -Current Size (cm) - Width -Current Size (cm) - Depth -Total Square Cm -Photo Taken -Tunneling -Undermining/Tunneling -Circular Undermining -Exudate Amt -Exudate Type -Wound Margin -Granulation Amt -Granulation Quality -Slough/Fibrin -Necrosis Amt -Necrotic Tissue Type -Structure Exposed -Texture (Maryann-wound Skin Appearance) -Moisture (Maryann-wound Skin Appearance) -Color (Maryann-wound Skin Appearance) -Temperature (Maryann-wound Skin Appearance) -Tenderness on Palpation (Maryann-wound Skin Appearance) -Ulcer Cleansing -Foul Odor after Cleansing -Anesthetic Used #13 Right Inferior Knee -Combined with other wound No -Current Size (cm) - Length 1.3 1 -Current Size (cm) - Width 0.9 0.8 -Current Size (cm) - Depth 0.1 0.1 -Total Square Cm 1.17 0.8 -Date of Last Picture (Recall this 06/11/24 06/18/24 field) -Photo Taken Yes -Epithelialization None Present -Tunneling No -Undermining/Tunneling No -Circular Undermining No -Exudate Amt None Present None Present -Wound Margin Distinct, Outline Attached -Granulation Amt -Granulation Quality -Necrosis Amt Large (67-100%) -Necrotic Tissue Type Eschar -Structure Exposed -Texture (Maryann-wound Skin Appearance) Assessed Assessed -Moisture (Maryann-wound Skin Appearance) Assessed Assessed -Color (Maryann-wound Skin Appearance) Erythema Assessed, Erythema -Temperature (Maryann-wound Skin No Abnormality No Abnormality Appearance) (Pt Warm) (Pt Warm) -Tenderness on Palpation (Maryann-wound No No Skin Appearance) -Ulcer Cleansing Soap and Water Soap and Water -Foul Odor after Cleansing No No -Anesthetic Used 5% Lidocaine 5% Lidocaine Gel Gel #12 R ACHILLES -Current Size (cm) - Length 1.6 0.2 0.4 -Current Size (cm) - Width 2 0.2 0.7 -Current Size (cm) - Depth 0.2 0.1 0.1 -Total Square Cm 3.2 0.04 0.28 -Date of Last Picture (Recall this 06/04/24 06/18/24 field) -Photo Taken No -Epithelialization Small 1-33% -Tunneling No -Undermining/Tunneling No -Circular Undermining No -Exudate Amt Small Small Small -Exudate Type Serosanguineous Yellow/Green Serosanguineous -Wound Margin Distinct, Distinct, Distinct, Outline Outline Outline Attached Attached Attached -Granulation Amt Large (67-100%) Small (1-33%) Large (67-100%) -Granulation Quality Red Pershing Pershing -Necrosis Amt Small (1-33%) Small (1-33%) -Necrotic Tissue Type Eschar Adherent Slough -Structure Exposed -Texture (Maryann-wound Skin Appearance) Assessed Assessed Assessed -Moisture (Maryann-wound Skin Appearance) Assessed Assessed Assessed -Color (Maryann-wound Skin Appearance) Assessed, Assessed Assessed Erythema -Temperature (Maryann-wound Skin No Abnormality No Abnormality No Abnormality Appearance) (Pt Warm) (Pt Warm) (Pt Warm) -Tenderness on Palpation (Maryann-wound No Yes No Skin Appearance) -Ulcer Cleansing Soap and Water Soap and Water Soap and Water -Foul Odor after Cleansing No No No -Anesthetic Used 5% Lidocaine 5% Lidocaine 5% Lidocaine Gel Gel Gel #10 R SUP POST CALF -Current Size (cm) - Length 1.2 1.5 0.8 -Current Size (cm) - Width 1 0.5 0.2 -Current Size (cm) - Depth 0.1 0.1 0.1 -Total Square Cm 1.2 0.75 0.16 -Date of Last Picture (Recall this 06/04/24 06/18/24 field) -Photo Taken No -Epithelialization None Present -Tunneling No -Undermining/Tunneling No -Circular Undermining No -Change in Wound Grade/Stage No -Exudate Amt Medium Small Small -Exudate Type Serosanguineous Yellow/Green Serosanguineous -Wound Margin Distinct, Distinct, Distinct, Outline Outline Outline Attached Attached Attached -Granulation Amt Small (1-33%) Small (1-33%) Large (67-100%) -Granulation Quality Pershing Pershing Pershing -Slough/Fibrin No -Necrosis Amt Large (67-100%) None Present (0 Small (1-33%) %) -Necrotic Tissue Type Adherent Slough Adherent Slough -Structure Exposed -Texture (Maryann-wound Skin Appearance) Assessed Assessed Assessed -Moisture (Maryann-wound Skin Appearance) Assessed, Assessed Assessed Weeping -Color (Maryann-wound Skin Appearance) Assessed Assessed Assessed -Temperature (Maryann-wound Skin No Abnormality No Abnormality No Abnormality Appearance) (Pt Warm) (Pt Warm) (Pt Warm) -Tenderness on Palpation (Maryann-wound No Yes No Skin Appearance) -Ulcer Cleansing Soap and Water Soap and Water Soap and Water -Foul Odor after Cleansing No No No -Anesthetic Used 5% Lidocaine 5% Lidocaine 5% Lidocaine Gel Gel Gel Lower Limb Edema Present No Right Calf (cm) 39 40.0 36.5 Right Ankle (cm) 23.5 23.0 21.5 Left Calf (cm) 36.5 Left Ankle (cm) 21.5 06/18/24 06/25/24 12:02 11:09 Wound Center Nurse 1 #11 R INF POST CALF -Current Size (cm) - Length -Current Size (cm) - Width -Current Size (cm) - Depth -Total Square Cm -Date of Last Picture (Recall this field) -Exudate Amt -Exudate Type -Wound Margin -Granulation Amt -Granulation Quality -Texture (Maryann-wound Skin Appearance) -Moisture (Maryann-wound Skin Appearance) -Color (Maryann-wound Skin Appearance) -Ulcer Cleansing -Foul Odor after Cleansing -Anesthetic Used 15. RIGHT BUTTOCK CLUSTER -Combined with other wound No -Current Size (cm) - Length 2 3 -Current Size (cm) - Width 0.5 1.2 -Current Size (cm) - Depth 0.1 0.1 -Total Square Cm 1.0 3.6 -Photo Taken Yes -Tunneling No -Undermining/Tunneling No -Circular Undermining No -Exudate Amt Medium Small -Exudate Type Serosanguineous -Wound Margin Distinct, Indistinct, Non Outline -Visible Attached -Granulation Amt Medium (34-66%) Large (67-100%) -Granulation Quality Pershing Pershing -Slough/Fibrin Yes -Necrosis Amt Medium (34-66%) None Present (0 %) -Necrotic Tissue Type Adherent Slough -Structure Exposed N/A N/A -Texture (Maryann-wound Skin Appearance) Assessed, Excoriation, Excoriation Friable -Moisture (Maryann-wound Skin Appearance) Assessed No Abnormality -Color (Maryann-wound Skin Appearance) Assessed Erythema -Temperature (Maryann-wound Skin No Abnormality No Abnormality Appearance) (Pt Warm) (Pt Warm) -Tenderness on Palpation (Maryann-wound No Skin Appearance) -Ulcer Cleansing Wound Cleanser Soap and Water -Foul Odor after Cleansing No No -Anesthetic Used 5% Lidocaine Gel 14. LEFT BUTTOCK -Combined with other wound No -Current Size (cm) - Length 0.1 0.7 -Current Size (cm) - Width 0.1 0.4 -Current Size (cm) - Depth 0.1 0.1 -Total Square Cm 0.01 0.28 -Photo Taken Yes -Tunneling No -Undermining/Tunneling No -Circular Undermining No -Exudate Amt Medium Small -Exudate Type Serosanguineous -Wound Margin Distinct, Distinct, Outline Outline Attached Attached -Granulation Amt Medium (34-66%) Large (67-100%) -Granulation Quality Pershing Pale,Pershing -Slough/Fibrin Yes -Necrosis Amt Medium (34-66%) None Present (0 %) -Necrotic Tissue Type Adherent Slough -Structure Exposed N/A N/A -Texture (Maryann-wound Skin Appearance) Excoriation Scarring -Moisture (Maryann-wound Skin Appearance) Assessed No Abnormality -Color (Maryann-wound Skin Appearance) Assessed No Abnormality -Temperature (Maryann-wound Skin No Abnormality No Abnormality Appearance) (Pt Warm) (Pt Warm) -Tenderness on Palpation (Maryann-wound No No Skin Appearance) -Ulcer Cleansing Wound Cleanser Soap and Water -Foul Odor after Cleansing No No -Anesthetic Used 5% Lidocaine Gel #13 Right Inferior Knee -Combined with other wound -Current Size (cm) - Length 0 -Current Size (cm) - Width 0 -Current Size (cm) - Depth 0 -Total Square Cm 0 -Date of Last Picture (Recall this field) -Photo Taken Yes -Epithelialization -Tunneling -Undermining/Tunneling -Circular Undermining -Exudate Amt None Present -Wound Margin Indistinct, Non -Visible -Granulation Amt Large (67-100%) -Granulation Quality Pershing -Necrosis Amt None Present (0 %) -Necrotic Tissue Type -Structure Exposed N/A -Texture (Maryann-wound Skin Appearance) Scarring -Moisture (Maryann-wound Skin Appearance) No Abnormality -Color (Maryann-wound Skin Appearance) No Abnormality -Temperature (Maryann-wound Skin No Abnormality Appearance) (Pt Warm) -Tenderness on Palpation (Maryann-wound No Skin Appearance) -Ulcer Cleansing -Foul Odor after Cleansing No -Anesthetic Used #12 R ACHILLES -Current Size (cm) - Length 0.7 -Current Size (cm) - Width 0.7 -Current Size (cm) - Depth 0.1 -Total Square Cm 0.49 -Date of Last Picture (Recall this field) -Photo Taken -Epithelialization -Tunneling -Undermining/Tunneling -Circular Undermining -Exudate Amt Small -Exudate Type -Wound Margin Distinct, Outline Attached -Granulation Amt Small (1-33%) -Granulation Quality Pershing -Necrosis Amt Small (1-33%) -Necrotic Tissue Type Adherent Slough -Structure Exposed N/A -Texture (Maryann-wound Skin Appearance) Scarring -Moisture (Maryann-wound Skin Appearance) No Abnormality -Color (Maryann-wound Skin Appearance) No Abnormality -Temperature (Maryann-wound Skin No Abnormality Appearance) (Pt Warm) -Tenderness on Palpation (Maryann-wound No Skin Appearance) -Ulcer Cleansing Soap and Water -Foul Odor after Cleansing No -Anesthetic Used 5% Lidocaine Gel #10 R SUP POST CALF -Current Size (cm) - Length 1 -Current Size (cm) - Width 0.6 -Current Size (cm) - Depth 0.2 -Total Square Cm 0.6 -Date of Last Picture (Recall this field) -Photo Taken -Epithelialization -Tunneling -Undermining/Tunneling -Circular Undermining -Change in Wound Grade/Stage -Exudate Amt Small -Exudate Type Serosanguineous -Wound Margin Distinct, Outline Attached -Granulation Amt Small (1-33%) -Granulation Quality Pale,Pershing -Slough/Fibrin -Necrosis Amt None Present (0 %) -Necrotic Tissue Type -Structure Exposed N/A -Texture (Maryann-wound Skin Appearance) Scarring -Moisture (Maryann-wound Skin Appearance) No Abnormality -Color (Maryann-wound Skin Appearance) No Abnormality -Temperature (Maryann-wound Skin No Abnormality Appearance) (Pt Warm) -Tenderness on Palpation (Maryann-wound No Skin Appearance) -Ulcer Cleansing Soap and Water -Foul Odor after Cleansing No -Anesthetic Used 5% Lidocaine Gel Lower Limb Edema Present Right Calf (cm) 36 Right Ankle (cm) 21.6 Left Calf (cm) 35.2 Left Ankle (cm) 21.5 WC - Nurse 2 - General Ulcer CM Notes Start: 06/04/24 11:19 Freq: Status: Active Protocol: Activity Type Activity Date Activity User E-sign Co-sign Detail Recorded Client Recorded Date Recorded By Document 06/04/24 11:56 [id number] 06/04/24 12:05 JF Document 06/11/24 11:33 DS [id number] 06/11/24 11:34 DS Edit Result 06/11/24 11:33 DS (1) [id number] 06/12/24 10:39 DS Document 06/18/24 11:39 JF [id number] 06/18/24 11:42 JF Document 06/18/24 12:01 [facility] [id number] 06/18/24 12:07 [facility] Document 06/25/24 12:06 JF [id number] 06/25/24 12:10 JF (1) #13 Right Inferior Knee - Wound/Ulcer Outcome => Not Healed 06/04/24 06/11/24 06/18/24 11:56 11:33 11:39 Wound Center Nurse 2 #15- R BUTTOCK -Time -Correct Patient -Correct Side, Site, Position -Correct Procedure -Procedure Performed -Type of Procedure -Clinical Debridement -Tissue Removed -Post Debridement (cm) - Length -Post Debridement (cm) - Width -Post Debridement (cm) - Depth -Total Square (Post) (cm) -Area of Debridement (cm) - Length -Area of Debridement (cm) - Width -Total Square (Area) (cm) -Tunneling -Undermining/Tunneling -Circular Undermining -Wound/Ulcer Outcome -Ulcer Cleansing -Foul Odor after Cleansing -Bioengineered Tissue -Bleeding Controlled with -Treatment Response -Debridement - Subq, 1st 20sq cm #14- L BUTTOCK -Time -Correct Patient -Correct Side, Site, Position -Correct Procedure -Procedure Performed -Type of Procedure -Clinical Debridement -Tissue Removed -Post Debridement (cm) - Length -Post Debridement (cm) - Width -Post Debridement (cm) - Depth -Total Square (Post) (cm) -Area of Debridement (cm) - Length -Area of Debridement (cm) - Width -Total Square (Area) (cm) -Tunneling -Undermining/Tunneling -Circular Undermining -Wound/Ulcer Outcome -Ulcer Cleansing -Foul Odor after Cleansing -Bioengineered Tissue -Bleeding Controlled with -Treatment Response -Debridement - Subq, 1st 20sq cm #11 R INF POST CALF -Time 11:59 -Correct Patient Yes -Correct Side, Site, Position No -Correct Procedure No -Procedure Performed No -Post Debridement (cm) - Length 0 -Post Debridement (cm) - Width 0 -Post Debridement (cm) - Depth 0 -Total Square (Post) (cm) 0 -Area of Debridement (cm) - Length 0 -Area of Debridement (cm) - Width 0 -Total Square (Area) (cm) 0 -Tunneling No -Undermining/Tunneling No -Circular Undermining No -Wound/Ulcer Outcome Not Healed -Ulcer Cleansing Rinsed/ Irrigated with Saline -Foul Odor after Cleansing No -Bioengineered Tissue No -Bleeding Controlled with Pressure -Treatment Response Procedure Tolerated Well -Offloading No -Debridement - Subq, 1st 20sq cm No #13 Right Inferior Knee -Time 11:33 -Correct Patient Yes No -Correct Side, Site, Position No -Correct Procedure No -Procedure Performed No No -Wound/Ulcer Outcome Not Healed #12 R ACHILLES -Time 11:58 11:33 11:41 -Correct Patient Yes Yes Yes -Correct Side, Site, Position Yes Yes Yes -Correct Procedure Yes Yes Yes -Procedure Performed Yes Yes Yes -Type of Procedure Debridement Debridement Debridement -Clinical Debridement Subcutaneous Subcutaneous Subcutaneous -Tissue Removed Subcutaneous Subcutaneous Subcutaneous -Post Debridement (cm) - Length 1.4 0.6 0.6 -Post Debridement (cm) - Width 1.4 1.1 1.0 -Post Debridement (cm) - Depth 0.2 0.1 0.1 -Total Square (Post) (cm) 1.96 0.66 0.60 -Area of Debridement (cm) - Length 1.4 0.6 0.6 -Area of Debridement (cm) - Width 1.4 1.1 1.0 -Total Square (Area) (cm) 1.96 0.66 0.60 -Tunneling No No No -Undermining/Tunneling No No No -Circular Undermining No No No -Wound/Ulcer Outcome Not Healed Not Healed Not Healed -Ulcer Cleansing Rinsed/ Rinsed/ Rinsed/ Irrigated with Irrigated with Irrigated with Saline Saline Saline -Foul Odor after Cleansing No No No -Bioengineered Tissue No No No -Bleeding Controlled with Pressure Pressure Pressure -Treatment Response Procedure Procedure Procedure Tolerated Well Tolerated Well Tolerated Well -Offloading No No -Debridement - Subq, 1st 20sq cm No Yes No #10 R SUP POST CALF -Time 12:00 11:33 11:41 -Correct Patient Yes Yes Yes -Correct Side, Site, Position Yes Yes Yes -Correct Procedure Yes Yes Yes -Procedure Performed Yes Yes Yes -Type of Procedure Debridement Debridement Debridement -Clinical Debridement Subcutaneous Subcutaneous Subcutaneous -Tissue Removed Subcutaneous Subcutaneous Subcutaneous -Post Debridement (cm) - Length 1.5 1.4 1.5 -Post Debridement (cm) - Width 0.9 0.8 1.0 -Post Debridement (cm) - Depth 0.2 0.1 0.1 -Total Square (Post) (cm) 1.35 1.12 1.50 -Area of Debridement (cm) - Length 1.5 1.4 1.5 -Area of Debridement (cm) - Width 0.9 0.8 1.0 -Total Square (Area) (cm) 1.35 1.12 1.50 -Tunneling No No No -Undermining/Tunneling No No No -Circular Undermining No No No -Wound/Ulcer Outcome Not Healed Not Healed Not Healed -Ulcer Cleansing Rinsed/ Rinsed/ Rinsed/ Irrigated with Irrigated with Irrigated with Saline Saline Saline -Foul Odor after Cleansing No No No -Bioengineered Tissue No No No -Bleeding Controlled with Pressure Pressure Pressure -Treatment Response Procedure Procedure Procedure Tolerated Well Tolerated Well Tolerated Well -Offloading No No -Debridement - Subq, 1st 20sq cm Yes No Yes Pain Scale: 0-10 Numeric Is Patient Pain Free? Yes Yes Yes 06/18/24 06/25/24 12:01 12:06 Wound Center Nurse 2 #15- R BUTTOCK -Time 12:04 -Correct Patient Yes -Correct Side, Site, Position Yes -Correct Procedure Yes -Procedure Performed Yes -Type of Procedure Debridement -Clinical Debridement Subcutaneous -Tissue Removed Subcutaneous -Post Debridement (cm) - Length 3 -Post Debridement (cm) - Width 1 -Post Debridement (cm) - Depth 0.1 -Total Square (Post) (cm) 3 -Area of Debridement (cm) - Length 3 -Area of Debridement (cm) - Width 1 -Total Square (Area) (cm) 3 -Tunneling No -Undermining/Tunneling No -Circular Undermining No -Wound/Ulcer Outcome Not Healed -Ulcer Cleansing Rinsed/ Irrigated with Saline -Foul Odor after Cleansing No -Bioengineered Tissue No -Bleeding Controlled with Pressure -Treatment Response Procedure Tolerated Well -Debridement - Subq, 1st 20sq cm No #14- L BUTTOCK -Time 12:04 -Correct Patient Yes -Correct Side, Site, Position Yes -Correct Procedure Yes -Procedure Performed Yes -Type of Procedure Debridement -Clinical Debridement Subcutaneous -Tissue Removed Subcutaneous -Post Debridement (cm) - Length 1 -Post Debridement (cm) - Width 0.5 -Post Debridement (cm) - Depth 0.1 -Total Square (Post) (cm) 0.5 -Area of Debridement (cm) - Length 1 -Area of Debridement (cm) - Width 0.5 -Total Square (Area) (cm) 0.5 -Tunneling No -Undermining/Tunneling No -Circular Undermining No -Wound/Ulcer Outcome Not Healed -Ulcer Cleansing Rinsed/ Irrigated with Saline -Foul Odor after Cleansing No -Bioengineered Tissue No -Bleeding Controlled with Pressure -Treatment Response Procedure Tolerated Well -Debridement - Subq, 1st 20sq cm Yes #11 R INF POST CALF -Time -Correct Patient -Correct Side, Site, Position -Correct Procedure -Procedure Performed -Post Debridement (cm) - Length -Post Debridement (cm) - Width -Post Debridement (cm) - Depth -Total Square (Post) (cm) -Area of Debridement (cm) - Length -Area of Debridement (cm) - Width -Total Square (Area) (cm) -Tunneling -Undermining/Tunneling -Circular Undermining -Wound/Ulcer Outcome -Ulcer Cleansing -Foul Odor after Cleansing -Bioengineered Tissue -Bleeding Controlled with -Treatment Response -Offloading -Debridement - Subq, 20sq cm #13 Right Inferior Knee -Time -Correct Patient -Correct Side, Site, Position -Correct Procedure -Procedure Performed -Wound/Ulcer Outcome #12 R ACHILLES -Time -Correct Patient Yes -Correct Side, Site, Position Yes -Correct Procedure Yes -Procedure Performed Yes -Type of Procedure Debridement -Clinical Debridement Subcutaneous -Tissue Removed Subcutaneous -Post Debridement (cm) - Length 0.7 -Post Debridement (cm) - Width 1.2 -Post Debridement (cm) - Depth 0.1 -Total Square (Post) (cm) 0.84 -Area of Debridement (cm) - Length 0.7 -Area of Debridement (cm) - Width 1.2 -Total Square (Area) (cm) 0.84 -Tunneling No -Undermining/Tunneling No -Circular Undermining No -Wound/Ulcer Outcome Not Healed -Ulcer Cleansing Rinsed/ Irrigated with Saline -Foul Odor after Cleansing No -Bioengineered Tissue No -Bleeding Controlled with Pressure -Treatment Response Procedure Tolerated Well -Offloading No -Debridement - Subq, 20sq cm Yes #10 R SUP POST CALF -Time -Correct Patient Yes -Correct Side, Site, Position Yes -Correct Procedure Yes -Procedure Performed Yes -Type of Procedure Debridement -Clinical Debridement Subcutaneous -Tissue Removed Subcutaneous -Post Debridement (cm) - Length 1.1 -Post Debridement (cm) - Width 0.6 -Post Debridement (cm) - Depth 0.1 -Total Square (Post) (cm) 0.66 -Area of Debridement (cm) - Length 1.1 -Area of Debridement (cm) - Width 0.6 -Total Square (Area) (cm) 0.66 -Tunneling No -Undermining/Tunneling No -Circular Undermining No -Wound/Ulcer Outcome Not Healed -Ulcer Cleansing Rinsed/ Irrigated with Saline -Foul Odor after Cleansing No -Bioengineered Tissue No -Bleeding Controlled with Pressure -Treatment Response Procedure Tolerated Well -Offloading No -Debridement - Subq, 1st 20sq cm No Pain Scale: 0-10 Numeric Is Patient Pain Free? Yes Yes WC - Nurse 3 - General Ulcer D/C NN Start: 06/04/24 11:19 Freq: Status: Active Protocol: Activity Type Activity Date Activity User E-sign Co-sign Detail Recorded Client Recorded Date Recorded By Document 06/04/24 12:24 RB [id number] 06/04/24 12:27 RB Document 06/11/24 11:51 GM [id number] 06/11/24 11:52 GM Document 06/18/24 11:48 KW [id number] 06/18/24 11:49 KW Document 06/18/24 12:07 BMF [id number] 06/18/24 12:14 BMF Document 06/25/24 13:01 RB [id number] 06/25/24 13:02 RB 06/04/24 06/11/24 06/18/24 12:24 11:51 11:48 Wound Care Center Nurse 3 15. RIGHT BUTTOCK CLUSTER -Ulcer Cleansing -Foul Odor after Cleansing -Primary Dressing Applied -Other Dressing -Silicone Border Foam 4x4 14. LEFT BUTTOCK -Ulcer Cleansing -Foul Odor after Cleansing -Primary Dressing Applied -Other Dressing -Silicone Border Foam 4x4 #13 Right Inferior Knee -Ulcer Cleansing Not Cleansed -Foul Odor after Cleansing No -Other Dressing HYDROGEL -Primary Dressing Covered/Secured with Dry Gauze, Dry Gauze,Dry Secured with Gauze & Roll Tape Gauze,Secured with Tape #12 R ACHILLES -Ulcer Cleansing Not Cleansed -Foul Odor after Cleansing No -Other Dressing HYDROGEL HYDROGEL -Primary Dressing Covered/Secured with Dry Gauze,Dry Dry Gauze,Dry Dry Gauze,Dry Gauze & Roll Gauze & Roll Gauze & Roll Gauze,Secured Gauze,Secured Gauze,Secured with Tape with Tape with Tape #10 R SUP POST CALF -Ulcer Cleansing Not Cleansed -Foul Odor after Cleansing No -Other Dressing HYDROGEL HYDROGEL -Primary Dressing Covered/Secured with Dry Gauze,Dry Dry Gauze Dry Gauze,Dry Gauze & Roll Gauze & Roll Gauze,Secured Gauze,Secured with Tape with Tape BILAT LE -Lotion applied to leg before No compression wrap -Tubular Bandage Double Layer Double Layer Double Layer -Size of Tubigrip Used Size E Size E Size D -Size D ($) 4 -Size E ($) 4 2 Treatment Response Procedure Procedure Tolerated Well Tolerated Well Pain Scale: 0-10 Numeric Is Patient Pain Free? Yes Yes Yes WC - Visit Discharge Discharge Condition Stable Unstable Stable Ambulatory Status Ambulatory, Ambulatory Ambulatory, Walker Walker Transportation [place] Private Auto Private Auto Medication Reconcilliation completed & No No provided to patient/care provider Clinical Summary of Care Provided Yes Yes Facility Type 06/18/24 06/25/24 12:07 13:01 Wound Care Center Nurse 3 15. RIGHT BUTTOCK CLUSTER -Ulcer Cleansing Rinsed/ Irrigated with Saline -Foul Odor after Cleansing No -Primary Dressing Applied NonAdherent Contact Layer, Silicone Border Foam 4x4 -Other Dressing XEROFORM, TOP W / ADAPTIC -Silicone Border Foam 4x4 1 14. LEFT BUTTOCK -Ulcer Cleansing Rinsed/ Irrigated with Saline -Foul Odor after Cleansing No -Primary Dressing Applied NonAdherent Contact Layer, Silicone Border Foam 4x4 -Other Dressing XEROFORM TOP W/ ADAPTIC -Silicone Border Foam 4x4 1 #13 Right Inferior Knee -Ulcer Cleansing -Foul Odor after Cleansing -Other Dressing hydrogel -Primary Dressing Covered/Secured with Dry Gauze & Roll Gauze #12 R ACHILLES -Ulcer Cleansing -Foul Odor after Cleansing -Other Dressing hydrogel -Primary Dressing Covered/Secured with Dry Gauze & Roll Gauze, Secured with Tape #10 R SUP POST CALF -Ulcer Cleansing -Foul Odor after Cleansing -Other Dressing hydrogel -Primary Dressing Covered/Secured with Dry Gauze & Roll Gauze, Secured with Tape BILAT LE -Lotion applied to leg before compression wrap -Tubular Bandage Double Layer -Size of Tubigrip Used Size D -Size D ($) 4 -Size E ($) Treatment Response Procedure Procedure Tolerated Well Tolerated Well Pain Scale: 0-10 Numeric Is Patient Pain Free? Yes Yes WC - Visit Discharge Discharge Condition Stable Stable Ambulatory Status Ambulatory, Ambulatory, Walker Walker Transportation [facility] Auto Medication Reconcilliation completed & No provided to patient/care provider Clinical Summary of Care Provided Yes Facility Type Skilled Nursing Care Facility Assessment/Plan Assessment/Plan (1) Non-pressure chronic ulcer of other part of right lower leg with fat layer exposed: CODE(S): L97.812 - Non-pressure chronic ulcer of other part of right lower leg with fat layer exposed PLAN: Patient was examined and evaluated. All findings were discussed with the patient. All questions were answered to the patient's satisfaction. Excisional debridement down to and including subcutaneous tissue with a number 5 mm dermal curette to the right posterior leg ulceration without incident. Predebridement measurement was 0.9 x 0.5 x 0.1 cm. Postdebridement measurement is 1.1 x 0.6 x 0.1 cm. Excisional debridement down to including subcutaneous tissue with a number 5 mm dermal curette to the right Achilles tendon ulceration without incident. Predebridement measurement was 0.5 x 1.0 x 0.1 cm. Postdebridement measurement is 0.7 x 1.2 x 0.1 cm. Right lower extremities were cleaned and patted dry. Santyl with moist gauze was applied to both wounds 5 by dry sterile dressing and light compression wrap. Patient will continue daily dressing changes. Follow-up at the wound care center with Dr. Sylvester in 1 week. (2) Non-pressure chronic ulcer of right heel and midfoot with fat layer exposed: CODE(S): L97.412 - Non-pressure chronic ulcer of right heel and midfoot with fat layer exposed
== END 2024-06-25 23:59 | disposition home or self-care (01) ==
LOC: WC 12:15
PROVIDERS: PCP Family Medicine; Referring Provider Physician Assistant; Visit Provider Podiatrist Foot & Ankle Surgery
DX: L97.212 Non-pressure chronic ulcer of right calf with fat layer exposed (principal); L89.312 Pressure ulcer of right buttock, stage 2; L89.322 Pressure ulcer of left buttock, stage 2; L97.412 Non-pressure chronic ulcer of right heel and midfoot with fat layer exposed; F01.B0 Vascular dementia, moderate, without behavioral disturbance, psychotic disturbance, mood disturbance, and anxiety; I73.89 Other specified peripheral vascular diseases; I10 Essential (primary) hypertension; R60.0 Localized edema; Z79.01 Long term (current) use of anticoagulants; Z79.899 Other long term (current) drug therapy
CPT/HCPCS: 11042; 93970; 99214; G0463

== ENCOUNTER 2024-07-09 11:00 | Outpatient (RCR) | payer MEDICARE, SELFPAY ==
--- NOTE | 2024-06-25 12:10 | PN.PCM_ITS ---
History of Present Illness Date of Service: 06/25/24 Chief Complaint: RLE wound History of Wound: Patient is an 81-year-old female who resides at [facility]. She is referred by facility for evaluation and management of right lower extremity wound which has been ongoing for an indeterminate amount of time. Patient cannot say and we did not receive any paperwork/information from the facility. She is well known to me as I have seen her here her in the past for similar wounds in approximately the same location most recently from 01/2023 to 06/2023. At her last appointment here in 06/2023, her calf wounds had healed completely and she was discharged with recommendation of continued 3M wraps to reduce risk of recurrence. She is not the most reliable historian with known history of dementia and some confusion noted here today. She is not sure when or how this wound started. She does not recall a specific injury. She reports that she has had compression wraps on her LLE but not on her RLE for unclear reasons. She does admit that she spends a lot of time sitting at a table coloring during the day with her legs hanging down. She also sleeps in a chair and is not sure she is always elevating her legs. She is not diabetic. She does not smoke. She is ambulatory and denies claudication type symptoms. She does have bilateral lower extremity edema, seems to be fairly well controlled with compression today. The wound on her R posterolateral calf is superficial with serous drainage. There is no significant erythema, appreciable warmth, excessive tenderness, foul odor, focal swelling/fluctuance/induration. Denies N/V, F/C. Progress of Wound: Currently seeing patient for right left buttocks cheek from She[place] and is stage II's that are much smaller than they were previously. He is complaining of less pain and more itching. Patient continues using the Xeroform with Adaptic and foam dressings on both buttocks cheeks. No sign of infection should be healed in the next couple of weeks. Subjective Subjective Patient doing well and is happy with outcomes Objective Data Objective Data No sign of infection no inflammation smaller areas of shearing seen patient is tolerating treatment well Physical Exam Const oriented x3 General Appearance: cooperative Exam Limitations: no limitations HEENT normocephalic Eyes PERRL General Eye: normal appearance of both eyes Neck full ROM General: normal visual inspection Resp normal respiratory effort Effort and Inspection: able to speak in complete sentences Auscultation: clear to auscultation bilaterally Cardio regular rate and regular rhythm Palpation: normal PMI Rate: regular rate Rhythm: regular rhythm Back/Spine Cervical Spine: cervical ROM normal Thoracic Spine / Upper Back: normal to inspection Lumbar Spine / Lower Back: normal to inspection Skin Wound Narrative: Wounds on her right and left buttocks from shearing stage II decubitus ulcers superficial but open painful no redness or infection noted Psych Appearance: grossly normal Speech: normal speech Thought Content: normal thought content Judgement: limited Debridement Note Debridement Note Wound debrided: Right buttocks Laterality: Right Wound Grade/Stage: Stage II Type of Debridement: Excisional debridement Anesthesia Used: 5% Lidocaine Gel Depth: Down to and including healthy tissue Percentage of wound debrided: 100 Instrument Used: 7mm curette Tissue Removed: fibrin Severity: Fat Layer Exposed Amount of bleeding with debridement: Mild Bleeding Controlled with: Compression and gauze Patient tolerated procedure: Patient tolerated procedure well Post-Debridement Measurements and Additional Note: Post-Debridement Measurements/Treatment WC - Nurse 2 - General Ulcer CM Notes Start: 06/25/24 11:41 Freq: Status: Active Protocol: Activity Type Activity Date Activity User E-sign Co-sign Detail Recorded Client Recorded Date Recorded By Document 06/25/24 11:43 [facility] [id number] 06/25/24 11:48 [facility] 06/25/24 11:43 Wound Center Nurse 2 15. RIGHT BUTTOCK CLUSTER -Time 11:44 -Correct Patient Yes -Correct Side, Site, Position Yes -Correct Procedure Yes -Procedure Performed Yes -Type of Procedure Debridement -Clinical Debridement Subcutaneous -Tissue Removed Subcutaneous -Post Debridement (cm) - Length 2.5 -Post Debridement (cm) - Width 1 -Post Debridement (cm) - Depth 0.1 -Total Square (Post) (cm) 2.5 -Area of Debridement (cm) - Length 2.5 -Area of Debridement (cm) - Width 1 -Total Square (Area) (cm) 2.5 -Tunneling No -Undermining/Tunneling No -Circular Undermining No -Wound/Ulcer Outcome Not Healed -Ulcer Cleansing Rinsed/ Irrigated with Saline -Foul Odor after Cleansing No -Bioengineered Tissue No -Bleeding Controlled with Pressure -Treatment Response Procedure Tolerated Well -Offloading Yes -Type of Offloading Other -Other Type of Offloading gel cushion -Debridement - Subq, 1st 20sq cm Yes 14. LEFT BUTTOCK -Time 11:44 -Correct Patient Yes -Correct Side, Site, Position Yes -Correct Procedure Yes -Procedure Performed Yes -Type of Procedure Debridement -Clinical Debridement Subcutaneous -Tissue Removed Subcutaneous -Post Debridement (cm) - Length 3 -Post Debridement (cm) - Width 0.6 -Post Debridement (cm) - Depth 0.1 -Total Square (Post) (cm) 1.8 -Area of Debridement (cm) - Length 3 -Area of Debridement (cm) - Width 0.6 -Total Square (Area) (cm) 1.8 -Tunneling No -Undermining/Tunneling No -Circular Undermining No -Wound/Ulcer Outcome Not Healed -Ulcer Cleansing Rinsed/ Irrigated with Saline -Foul Odor after Cleansing No -Bioengineered Tissue No -Bleeding Controlled with Pressure -Treatment Response Procedure Tolerated Well -Debridement - Subq, 1st 20sq cm No Pain Scale: 0-10 Numeric Is Patient Pain Free? Yes - Nurse 3 - General Ulcer D/C NN Start: 06/25/24 11:41 Freq: Status: Active Protocol: Activity Type Activity Date Activity User E-sign Co-sign Detail Recorded Client Recorded Date Recorded By Document 06/25/24 11:48 [facility] [id number] 06/25/24 11:49 [facility] 06/25/24 11:48 Wound Care Center Nurse 3 15. RIGHT BUTTOCK CLUSTER -Ulcer Cleansing Rinsed/ Irrigated with Saline -Foul Odor after Cleansing No -Primary Dressing Applied NonAdherent Contact Layer, Silicone Border Foam 4x4 -Other Dressing xeroform, then adaptic -Silicone Border Foam 4x4 1 14. LEFT BUTTOCK -Ulcer Cleansing Rinsed/ Irrigated with Saline -Foul Odor after Cleansing No -Primary Dressing Applied NonAdherent Contact Layer, Silicone Border Foam 4x4 -Other Dressing xeroform then adaptic -Silicone Border Foam 4x4 1 Treatment Response Procedure Tolerated Well Pain Scale: 0-10 Numeric Is Patient Pain Free? Yes - Visit Discharge Discharge Condition Stable Ambulatory Status Ambulatory, Walker Transportation [facility] transport Facility [facility] Additional Wound Wound debrided: Left buttocks Laterality: Left Wound Grade/Stage: Decubitus ulcer stage II Type of Debridement: Excisional debridement Anesthesia Used: 5% Lidocaine Gel Depth: in the subcutaneous layer Percentage of wound debrided: 100 Instrument Used: 7mm curette Tissue Removed: fibrin Severity: Fat Layer Exposed Amount of bleeding with debridement: Mild Bleeding Controlled with: Compression and gauze Patient tolerated procedure: Patient tolerated procedure well Assessment/Plan Assessment/Plan (1) Pressure ulcer of right buttock, stage 2: CODE(S): L89.312 - Pressure ulcer of right buttock, stage 2 PLAN: Wash right buttocks with antibacterial soap and water and apply Xeroform dressing to wound with Adaptic over top and a foam XL SAP dressing every day (2) Pressure ulcer of left buttock, stage 2: CODE(S): L89.322 - Pressure ulcer of left buttock, stage 2 PLAN: Wash left buttocks with antibacterial soap and water pat dry apply Xeroform and Adaptic over top with a foam [place] SAP dressing every day Follow-up in 2 week Apply gel cushion to sit on Offload with laying in bed rather than sitting on buttocks (3) Dementia with psychotic disturbance: CODE(S): F03.92 - Unspecified dementia, unspecified severity, with psychotic disturbance QUALIFIERS: Dementia type: vascular dementia Dementia severity: moderate Qualified Code(s): F01.B2 - Vascular dementia, moderate, with psychotic disturbance
[2024-07-09 10:56] VITALS: BP 177/61; PULSE 74
--- NOTE | 2024-07-09 12:59 | PN.PCM_ITS ---
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 She has been doing dressing changes. There is improvement to the wound. No drainage sign of infection Progress of Wound: Right and left buttocks completely healed patient will be discharged from the wound center and she can follow-up as needed Subjective Subjective Patient states about 2 days ago the pain stopped and she feels much better Objective Data Objective Data 2 areas on her right and left buttocks are healed patient was encouraged to start using A&E ointment she can buy by the tub or are by the tube and apply it liberally after using the bathroom on a regular basis to keep the skin supple and healed Vital Signs: Vital Signs Pulse BP 74 177/61 H 07/09/24 10:56 07/09/24 10:56 Physical Exam Const oriented x3 General Appearance: cooperative Exam Limitations: no limitations HEENT normocephalic Eyes PERRL General Eye: normal appearance of both eyes Neck full ROM General: normal visual inspection Resp normal respiratory effort Effort and Inspection: able to speak in complete sentences Auscultation: clear to auscultation bilaterally Cardio regular rate and regular rhythm Palpation: normal PMI Rate: regular rate Rhythm: regular rhythm Back/Spine Cervical Spine: cervical ROM normal Thoracic Spine / Upper Back: normal to inspection Lumbar Spine / Lower Back: normal to inspection Skin Wound Narrative: Wounds on her right and left buttocks from shearing stage II decubitus ulcers superficial but open painful no redness or infection noted Psych Appearance: grossly normal Speech: normal speech Thought Content: normal thought content Judgement: limited Debridement Note Debridement Note No debridement was completed: No debridement was completed today Post-Debridement Measurements and Additional Note: Post-Debridement Measurements/Treatment - Nurse 1 - General Ulcer Assessment Start: 06/25/24 11:41 Freq: Status: Active Protocol: STACIA Activity Type Activity Date Activity User E-sign Co-sign Detail Recorded Client Recorded Date Recorded By Document 07/09/24 10:56 [facility] [id number] 07/09/24 11:08 MT Document 07/09/24 11:18 VA [id number] 07/09/24 11:24 MT 07/09/24 07/09/24 10:56 11:18 - Today's Visit Information Type of service Follow-up Visit (Physician/[employer] [employer] ) Arrival Mode Ambulatory Patient Identification Verified (Name & Yes ) Safety Precautions Fall Prevention Vital Signs Temperature Source Temporal Pulse Rate (60-100) 74 Pulse Location Monitor Respiratory rate source Observation Blood Pressure (90/60-120/80) 177/61 H Blood Pressure Mean (mm Hg) 99 Source Monitor Position Sitting Blood Pressure Location Left Arm History Since Last Visit- (Skip if this is Patient's initial visit) Has dressing in place as prescribed Yes Has compression in place as prescribed Yes Has offloadiing in place as prescribed Yes Experienced any changes in pain level or Yes management Left Footwear Regular Shoe Right Footwear Regular Shoe Pain Scale: 0-10 Numeric Is Patient Pain Free? Yes Yes - Nurse 1 - General Ulcer Measurement Start: 06/25/24 11:41 Freq: Status: Active Protocol: Activity Type Activity Date Activity User E-sign Co-sign Detail Recorded Client Recorded Date Recorded By Document 07/09/24 10:56 [facility] [id number] 07/09/24 11:08 MT Document 07/09/24 11:18 VA [id number] 07/09/24 11:24 MT 07/09/24 07/09/24 10:56 11:18 Wound Center Nurse 1 15. RIGHT BUTTOCK CLUSTER -Current Size (cm) - Length 0.1 -Current Size (cm) - Width 0.1 -Current Size (cm) - Depth 0.1 -Total Square Cm 0.01 -Date of Last Picture (Recall this 07/09/24 field) -Photo Taken Yes -Epithelialization Large 67-100% -Tunneling No -Undermining/Tunneling No -Circular Undermining No -Change in Wound Grade/Stage No -Exudate Amt None Present -Wound Margin Flat & Intact -Color (Maryann-wound Skin Appearance) Assessed -Temperature (Maryann-wound Skin No Abnormality Appearance) (Pt Warm) -Tenderness on Palpation (Maryann-wound No Skin Appearance) 14. LEFT BUTTOCK -Current Size (cm) - Length 0.1 -Current Size (cm) - Width 0.1 -Current Size (cm) - Depth 0.1 -Total Square Cm 0.01 -Date of Last Picture (Recall this 07/09/24 field) -Photo Taken Yes -Wound Margin Flat & Intact -Granulation Amt Large (67-100%) -Granulation Quality Pale,[place] -Slough/Fibrin No -Texture (Maryann-wound Skin Appearance) Assessed -Moisture (Maryann-wound Skin Appearance) Assessed -Color (Maryann-wound Skin Appearance) Assessed -Temperature (Maryann-wound Skin No Abnormality Appearance) (Pt Warm) -Tenderness on Palpation (Maryann-wound No Skin Appearance) -Foul Odor after Cleansing No #13 Right Inferior Knee -Current Size (cm) - Length 0.1 -Current Size (cm) - Width 0.1 -Current Size (cm) - Depth 0.1 -Total Square Cm 0.01 #12 R ACHILLES -Current Size (cm) - Length 0.5 -Current Size (cm) - Width 1.0 -Current Size (cm) - Depth 0.2 -Total Square Cm 0.50 #10 R SUP POST CALF -Current Size (cm) - Length 1 -Current Size (cm) - Width 0.5 -Current Size (cm) - Depth 0.1 -Total Square Cm 0.5 WC - Nurse 2 - General Ulcer CM Notes Start: 06/25/24 11:41 Freq: Status: Active Protocol: Activity Type Activity Date Activity User E-sign Co-sign Detail Recorded Client Recorded Date Recorded By Document 06/25/24 11:43 [facility] [id number] 06/25/24 11:48 [facility] 06/25/24 11:43 Wound Center Nurse 2 15. RIGHT BUTTOCK CLUSTER -Time 11:44 -Correct Patient Yes -Correct Side, Site, Position Yes -Correct Procedure Yes -Procedure Performed Yes -Type of Procedure Debridement -Clinical Debridement Subcutaneous -Tissue Removed Subcutaneous -Post Debridement (cm) - Length 2.5 -Post Debridement (cm) - Width 1 -Post Debridement (cm) - Depth 0.1 -Total Square (Post) (cm) 2.5 -Area of Debridement (cm) - Length 2.5 -Area of Debridement (cm) - Width 1 -Total Square (Area) (cm) 2.5 -Tunneling No -Undermining/Tunneling No -Circular Undermining No -Wound/Ulcer Outcome Not Healed -Ulcer Cleansing Rinsed/ Irrigated with Saline -Foul Odor after Cleansing No -Bioengineered Tissue No -Bleeding Controlled with Pressure -Treatment Response Procedure Tolerated Well -Offloading Yes -Type of Offloading Other -Other Type of Offloading gel cushion -Debridement - Subq, 1st 20sq cm Yes 14. LEFT BUTTOCK -Time 11:44 -Correct Patient Yes -Correct Side, Site, Position Yes -Correct Procedure Yes -Procedure Performed Yes -Type of Procedure Debridement -Clinical Debridement Subcutaneous -Tissue Removed Subcutaneous -Post Debridement (cm) - Length 3 -Post Debridement (cm) - Width 0.6 -Post Debridement (cm) - Depth 0.1 -Total Square (Post) (cm) 1.8 -Area of Debridement (cm) - Length 3 -Area of Debridement (cm) - Width 0.6 -Total Square (Area) (cm) 1.8 -Tunneling No -Undermining/Tunneling No -Circular Undermining No -Wound/Ulcer Outcome Not Healed -Ulcer Cleansing Rinsed/ Irrigated with Saline -Foul Odor after Cleansing No -Bioengineered Tissue No -Bleeding Controlled with Pressure -Treatment Response Procedure Tolerated Well -Debridement - Subq, 20sq cm No Pain Scale: 0-10 Numeric Is Patient Pain Free? Yes - Nurse 3 - General Ulcer D/C NN Start: 06/25/24 11:41 Freq: Status: Active Protocol: Activity Type Activity Date Activity User E-sign Co-sign Detail Recorded Client Recorded Date Recorded By Document 06/25/24 11:48 [facility] [id number] 06/25/24 11:49 [facility] 06/25/24 11:48 Wound Care Center Nurse 3 15. RIGHT BUTTOCK CLUSTER -Ulcer Cleansing Rinsed/ Irrigated with Saline -Foul Odor after Cleansing No -Primary Dressing Applied NonAdherent Contact Layer, Silicone Border Foam 4x4 -Other Dressing xeroform, then adaptic -Silicone Border Foam 4x4 1 14. LEFT BUTTOCK -Ulcer Cleansing Rinsed/ Irrigated with Saline -Foul Odor after Cleansing No -Primary Dressing Applied NonAdherent Contact Layer, Silicone Border Foam 4x4 -Other Dressing xeroform then adaptic -Silicone Border Foam 4x4 1 Treatment Response Procedure Tolerated Well Pain Scale: 0-10 Numeric Is Patient Pain Free? Yes - Visit Discharge Discharge Condition Stable Ambulatory Status Ambulatory, Walker Transportation ecf transport Facility Type [facility] Care Facility Assessment/Plan Assessment/Plan (1) Pressure ulcer of right buttock, stage 2: CODE(S): L89.312 - Pressure ulcer of right buttock, stage 2 PLAN: Buttocks resolved patient is to use A&E ointment liberally on right buttocks up to 2-3 times a day after toileting. Discharge from the wound center and follow-up as needed (2) Pressure ulcer of left buttock, stage 2: CODE(S): L89.322 - Pressure ulcer of left buttock, stage 2 PLAN: Patient is to apply A&E ointment liberally to the left buttocks toileting 2-3 times a day. Apply gel cushion to sit on Offload with laying in bed rather than sitting on buttocks Discharge from the wound center follow-up as needed (3) Dementia with psychotic disturbance: CODE(S): F03.92 - Unspecified dementia, unspecified severity, with psychotic disturbance QUALIFIERS: Dementia type: vascular dementia Dementia severity: moderate Qualified Code(s): F01.B2 - Vascular dementia, moderate, with psychotic disturbance
--- NOTE | 2024-07-09 14:34 | WC ---
PHOTO 07/09/24 Left and Right Buttock - Healed
== END 2024-07-18 23:59 | disposition home or self-care (01) ==
LOC: WC 11:00
PROVIDERS: PCP Family Medicine; Referring Provider Family Medicine; Visit Provider Nurse Practitioner
DX: L89.312 Pressure ulcer of right buttock, stage 2 (principal); L89.322 Pressure ulcer of left buttock, stage 2; L97.212 Non-pressure chronic ulcer of right calf with fat layer exposed; L97.412 Non-pressure chronic ulcer of right heel and midfoot with fat layer exposed; F01.B0 Vascular dementia, moderate, without behavioral disturbance, psychotic disturbance, mood disturbance, and anxiety; R60.0 Localized edema; Z79.899 Other long term (current) drug therapy; I10 Essential (primary) hypertension; I73.89 Other specified peripheral vascular diseases; Z79.01 Long term (current) use of anticoagulants
CPT/HCPCS: 11042

== ENCOUNTER 2024-07-16 12:15 | Outpatient (RCR) | payer MEDICARE, SELFPAY ==
[2024-06-26 00:05] VITALS: BP 163/75; PULSE 75; RESP 20; TEMP 36.7
[2024-07-02 11:11] VITALS: BP 171/57; PULSE 78; RESP 16; TEMP 36.1
--- NOTE | 2024-07-02 14:41 | PN.PCM_ITS ---
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 She has been doing dressing changes. There is improvement to the wound. No drainage sign of infection Progress of Wound: Stable right lower extremity wounds. No sign of infection. Subjective Subjective Mrs. Fox is a 83-year-old female presented wound care center today for follow-up evaluation of full-thickness wound to the right lower extremity. She has been compliant with dressing changes with Santyl daily and compression wrap. The patient is doing well. She still notes pain with shoe gear. Denies trauma. Denies constitutional symptoms. No other pedal complaints at this time. Objective Data Objective Data Vital Signs: Vital Signs Temp Pulse Resp BP O2 Del Method 97.0 F L 78 16 171/57 H Room Air 07/02/24 11:11 07/02/24 11:11 07/02/24 11:11 07/02/24 11:11 07/02/24 11:11 Oxygen Delivery Method Room Air Physical Exam Narrative Vascular: DP and PT pulses are palpable to bilateral extremity. CFT is brisk. Nonpitting edema appreciated to bilateral lower extremity. No erythema. Skin temperature great is warm to warm from proximal ankles to distal digit bilateral. Neurological: Light touch intact. Patient does respond to painful stimuli. Dermatological: Full-thickness ulceration to the right posterior leg measuring 1.3 x 0.5 x 0.1 cm.. Right posterior leg wound is granular nature with serous drainage. No sign of infection. Right Achilles area full-thickness wound measuring 0.4 x 1.0 x 0.1 cm. Achilles tendon ulceration shows evidence of eschar with some drainage. No sign of infection. Excisional debridement down to and including subcutaneous tissue with a number 5 mm dermal curette to the right posterior leg ulceration without incident. Predebridement measurement was 1.1 x 0.4 x 0.1 cm. Postdebridement measurement is 1.3 x 0.5 x 0.1 cm. Excisional debridement down to including subcutaneous tissue with a number 5 mm dermal curette to the right Achilles tendon ulceration without incident. Predebridement measurement was 0.3 x 0.9 x 0.1 cm. Postdebridement measurement is 0.4 x 1.0 x 0.1 cm. Musculoskeletal: Mild pain on palpation to both full-thickness ulceration. No pain with calf compression. Debridement Note Debridement Note Debridement Free Text: Excisional debridement down to and including subcutaneous tissue with a number 5 mm dermal curette to the right posterior leg ulceration without incident. Predebridement measurement was 1.1 x 0.4 x 0.1 cm. Postdebridement measurement is 1.3 x 0.5 x 0.1 cm. Excisional debridement down to including subcutaneous tissue with a number 5 mm dermal curette to the right Achilles tendon ulceration without incident. Predebridement measurement was 0.3 x 0.9 x 0.1 cm. Postdebridement measurement is 0.4 x 1.0 x 0.1 cm. 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 Any new allergies or adverse reactions No Had a fall/change in ADL's that may No increase risk of falls Signs or symptoms of abuse and/or No neglect since last visit Have you been in the hospital since your No last visit? Has dressing in place as prescribed Yes Has compression in place as prescribed Yes Has offloadiing in place as prescribed N/A Experienced any changes in pain level or No management Left Footwear Regular Shoe Right Footwear Regular Shoe Pain Scale: 0-10 Numeric Is Patient Pain Free? Yes WC - Nurse 1 - General Ulcer Measurement Start: 07/02/24 11:11 Freq: Status: Active Protocol: Activity Type Activity Date Activity User E-sign Co-sign Detail Recorded Client Recorded Date Recorded By Document 07/02/24 11:11 KW [id number] 07/02/24 11:25 KW 07/02/24 11:11 Wound Center Nurse 1 #13 Right Inferior Knee -Current Size (cm) - Length 0 -Current Size (cm) - Width 0 -Current Size (cm) - Depth 0 -Total Square Cm 0 #12 R ACHILLES -Current Size (cm) - Length 0.5 -Current Size (cm) - Width 1 -Current Size (cm) - Depth 0.1 -Total Square Cm 0.5 -Exudate Amt Small -Exudate Type Serosanguineous -Wound Margin Distinct, Outline Attached -Granulation Amt Small (1-33%) -Granulation Quality [place] -Necrosis Amt Large (67-100%) -Necrotic Tissue Type Adherent Slough -Texture (Maryann-wound Skin Appearance) Assessed -Moisture (Maryann-wound Skin Appearance) Assessed -Color (Maryann-wound Skin Appearance) Assessed, Erythema -Temperature (Maryann-wound Skin No Abnormality Appearance) (Pt Warm) -Tenderness on Palpation (Maryann-wound Yes Skin Appearance) -Ulcer Cleansing Soap and Water -Foul Odor after Cleansing No -Anesthetic Used 5% Lidocaine Gel #10 R SUP POST CALF -Current Size (cm) - Length 1.4 -Current Size (cm) - Width 0.5 -Current Size (cm) - Depth 0.1 -Total Square Cm 0.70 -Exudate Amt Small -Exudate Type Serosanguineous -Wound Margin Distinct, Outline Attached -Granulation Amt Large (67-100%) -Granulation Quality Red -Necrosis Amt Small (1-33%) -Necrotic Tissue Type Adherent Slough -Texture (Maryann-wound Skin Appearance) Assessed -Moisture (Maryann-wound Skin Appearance) Assessed -Color (Maryann-wound Skin Appearance) Assessed, Erythema -Temperature (Maryann-wound Skin No Abnormality Appearance) (Pt Warm) -Tenderness on Palpation (Maryann-wound No Skin Appearance) -Ulcer Cleansing Soap and Water -Foul Odor after Cleansing No -Anesthetic Used 5% Lidocaine Gel Right Calf (cm) 35.5 Right Ankle (cm) 23 - Nurse 2 - General Ulcer CM Notes Start: 07/02/24 11:11 Freq: Status: Active Protocol: Activity Type Activity Date Activity User E-sign Co-sign Detail Recorded Client Recorded Date Recorded By Document 07/02/24 11:37 [facility] [id number] 07/02/24 11:43 [facility] 07/02/24 11:37 Wound Center Nurse 2 #12 R ACHILLES -Time 11:39 -Correct Patient Yes -Correct Side, Site, Position Yes -Correct Procedure Yes -Procedure Performed Yes -Type of Procedure Debridement -Clinical Debridement Epidermis / Dermis -Tissue Removed Subcutaneous -Post Debridement (cm) - Length 0.4 -Post Debridement (cm) - Width 1 -Post Debridement (cm) - Depth 0.1 -Total Square (Post) (cm) 0.4 -Area of Debridement (cm) - Length 0.4 -Area of Debridement (cm) - Width 1 -Total Square (Area) (cm) 0.4 -Tunneling No -Undermining/Tunneling No -Circular Undermining No -Wound/Ulcer Outcome Not Healed -Ulcer Cleansing Rinsed/ Irrigated with Saline -Foul Odor after Cleansing No -Bleeding Controlled with Pressure -Treatment Response Procedure Tolerated Well -Debridement - Open, 1st 20sq cm Yes -Debridement - Subq, 1st 20sq cm No #10 R SUP POST CALF -Time 11:40 -Correct Patient Yes -Correct Side, Site, Position Yes -Correct Procedure Yes -Procedure Performed Yes -Type of Procedure Debridement -Clinical Debridement Subcutaneous -Tissue Removed Subcutaneous -Post Debridement (cm) - Length 1.3 -Post Debridement (cm) - Width 0.5 -Post Debridement (cm) - Depth 0.1 -Total Square (Post) (cm) 0.65 -Area of Debridement (cm) - Length 1.3 -Area of Debridement (cm) - Width 0.5 -Total Square (Area) (cm) 0.65 -Tunneling No -Undermining/Tunneling No -Circular Undermining No -Wound/Ulcer Outcome Not Healed -Ulcer Cleansing Rinsed/ Irrigated with Saline -Foul Odor after Cleansing No -Bioengineered Tissue No -Bleeding Controlled with Pressure -Treatment Response Procedure Tolerated Well -Debridement - Subq, 1st 20sq cm Yes Pain Scale: 0-10 Numeric Is Patient Pain Free? Yes - Nurse 3 - General Ulcer D/C NN Start: 07/02/24 11:11 Freq: Status: Active Protocol: Activity Type Activity Date Activity User E-sign Co-sign Detail Recorded Client Recorded Date Recorded By Document 07/02/24 11:47 DANIKA [id number] 07/02/24 11:49 KW 07/02/24 11:47 Wound Care Center Nurse 3 #12 R ACHILLES -Primary Dressing Applied Promogran Nelsy Matter -Primary Dressing Covered/Secured with Dry Gauze -Promogran Nelsy Matter 1 #10 R SUP POST CALF -Primary Dressing Applied Promogran Nelsy Matter -Primary Dressing Covered/Secured with Dry Gauze & Roll Gauze, Secured with Tape -Promogran Nelsy Matter 1 Right -Tubular Bandage Single Layer -Size of Tubigrip Used Size D -Size D ($) 1 -Other HCS brand- double Left -Tubular Bandage Single Layer -Size of Tubigrip Used Size D -Size D ($) 1 -Other HCS brand- double Pain Scale: 0-10 Numeric Is Patient Pain Free? Yes WC - Visit Discharge Discharge Condition Stable Ambulatory Status Ambulatory, Walker Medication Reconcilliation completed & No provided to patient/care provider Clinical Summary of Care Provided Yes Assessment/Plan Assessment/Plan (1) Non-pressure chronic ulcer of other part of right lower leg with fat layer exposed: CODE(S): L97.812 - Non-pressure chronic ulcer of other part of right lower leg with fat layer exposed PLAN: Patient was examined and evaluated. All findings were discussed with the patient. All questions were answered to the patient's satisfaction. Excisional debridement down to and including subcutaneous tissue with a number 5 mm dermal curette to the right posterior leg ulceration without incident. Predebridement measurement was 1.1 x 0.4 x 0.1 cm. Postdebridement measurement is 1.3 x 0.5 x 0.1 cm. Excisional debridement down to including subcutaneous tissue with a number 5 mm dermal curette to the right Achilles tendon ulceration without incident. Predebridement measurement was 0.3 x 0.9 x 0.1 cm. Postdebridement measurement is 0.4 x 1.0 x 0.1 cm. The right lower extremity are clean and patted dry. Will move forward with collagen application, moist Nelsy was applied to the full-thickness wounds right lower extremity followed by dry sterile dressing and compression wrap. EXTR present was dispensed to the patient to be changed every other day. Follow-up at the wound care center with Dr. Sylvester in 1 week. (2) Non-pressure chronic ulcer of right heel and midfoot with fat layer exposed: CODE(S): L97.412 - Non-pressure chronic ulcer of right heel and midfoot with fat layer exposed
--- NOTE | 2024-07-09 12:51 | PCM.WC.PN ---
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 She has been doing dressing changes. There is improvement to the wound. No drainage sign of infection Progress of Wound: Stable right lower extremity wounds. No sign of infection. Subjective Subjective Mrs. Fox is a 83-year-old female presenting to wound care center today for follow-up evaluation of right calf and Achilles wound. She has been compliant with dressing changes at her assisted living place she admits her wounds are improving. She denies any pain to the right lower extremity. She denies any trauma. Denies constitutional symptoms. No other pedal complaints at this time. Objective Data Objective Data Vital Signs: Vital Signs Temp Pulse Resp BP O2 Del Method 97.0 F L 78 16 171/57 H Room Air 07/02/24 11:11 07/02/24 11:11 07/02/24 11:11 07/02/24 11:11 07/02/24 11:11 Oxygen Delivery Method Room Air Physical Exam Narrative Vascular: DP and PT pulses are palpable to bilateral extremity. CFT is brisk. Nonpitting edema appreciated to bilateral lower extremity. No erythema. Skin temperature great is warm to warm from proximal ankles to distal digit bilateral. Neurological: Light touch intact. Patient does respond to painful stimuli. Dermatological: Full-thickness ulceration to the right posterior leg measuring 1.2 x 0.6 x 0.1 cm. Right posterior leg wound is granular nature. No sign of infection. Right Achilles area full-thickness wound measuring 0.5 x 0.9 x 0.1 cm. Wound base is granular nature. No sign of infection. Excisional debridement down to and including subcutaneous tissue with a number 5 mm dermal curette to the right posterior leg ulceration without incident. Predebridement measurement was 1.0 x 0.5 x 0.1 cm. Postdebridement measurement is 1.2 x 0.6 x 0.1 cm. Excisional debridement down to including subcutaneous tissue with a number 5 mm dermal curette to the right Achilles tendon ulceration without incident. Predebridement measurement was 0.4 x 0.7 x 0.1 cm. Postdebridement measurement is 0.5 x 0.9 x 0.1 cm. Musculoskeletal: Mild pain on palpation to both full-thickness ulceration. No pain with calf compression. Debridement Note Debridement Note Debridement Free Text: Excisional debridement down to and including subcutaneous tissue with a number 5 mm dermal curette to the right posterior leg ulceration without incident. Predebridement measurement was 1.0 x 0.5 x 0.1 cm. Postdebridement measurement is 1.2 x 0.6 x 0.1 cm. Excisional debridement down to including subcutaneous tissue with a number 5 mm dermal curette to the right Achilles tendon ulceration without incident. Predebridement measurement was 0.4 x 0.7 x 0.1 cm. Postdebridement measurement is 0.5 x 0.9 x 0.1 cm. Post-Debridement Measurements and Additional Note: Post-Debridement Measurements/Treatment - Nurse 1 - General Ulcer Assessment Start: 07/02/24 11:11 Freq: Status: Active Protocol: [email or web address].[email or web address] Activity Type Activity Date Activity User E-sign Co-sign Detail Recorded Client Recorded Date Recorded By Document 07/02/24 11:11 [id number] 07/02/24 11:25 07/02/24 11:11 - Today's Visit Information Type of service Follow-up Visit (Physician/[facility] [employer] ) Arrival Mode Ambulatory, Walker Patient Identification Verified (Name & Yes ) Vital Signs Temperature (97.8 F-99.1 F) 97.0 F L Temperature Source Temporal Pulse Rate (60-100) 78 Pulse Location Monitor Respiratory Rate (12-18) 16 Respiratory rate source Observation Oxygen Delivery Method Room Air Blood Pressure (90/60-120/80) 171/57 H Blood Pressure Mean (mm Hg) 95 Source Monitor Position Semi-Fowlers Blood Pressure Location Left Arm History Since Last Visit- (Skip if this is Patient's initial visit) Have you changed medications since your No last visit? Any new allergies or adverse reactions No Had a fall/change in ADL's that may No increase risk of falls Signs or symptoms of abuse and/or No neglect since last visit Have you been in the hospital since your No last visit? Has dressing in place as prescribed Yes Has compression in place as prescribed Yes Has offloadiing in place as prescribed N/A Experienced any changes in pain level or No management Left Footwear Regular Shoe Right Footwear Regular Shoe Pain Scale: 0-10 Numeric Is Patient Pain Free? Yes WC - Nurse 1 - General Ulcer Measurement Start: 07/02/24 11:11 Freq: Status: Active Protocol: Activity Type Activity Date Activity User E-sign Co-sign Detail Recorded Client Recorded Date Recorded By Document 07/02/24 11:11 KW [id number] 07/02/24 11:25 KW 07/02/24 11:11 Wound Center Nurse 1 #13 Right Inferior Knee -Current Size (cm) - Length 0 -Current Size (cm) - Width 0 -Current Size (cm) - Depth 0 -Total Square Cm 0 #12 R ACHILLES -Current Size (cm) - Length 0.5 -Current Size (cm) - Width 1 -Current Size (cm) - Depth 0.1 -Total Square Cm 0.5 -Exudate Amt Small -Exudate Type Serosanguineous -Wound Margin Distinct, Outline Attached -Granulation Amt Small (1-33%) -Granulation Quality [place] -Necrosis Amt Large (67-100%) -Necrotic Tissue Type Adherent Slough -Texture (Maryann-wound Skin Appearance) Assessed -Moisture (Maryann-wound Skin Appearance) Assessed -Color (Maryann-wound Skin Appearance) Assessed, Erythema -Temperature (Maryann-wound Skin No Abnormality Appearance) (Pt Warm) -Tenderness on Palpation (Maryann-wound Yes Skin Appearance) -Ulcer Cleansing Soap and Water -Foul Odor after Cleansing No -Anesthetic Used 5% Lidocaine Gel #10 R SUP POST CALF -Current Size (cm) - Length 1.4 -Current Size (cm) - Width 0.5 -Current Size (cm) - Depth 0.1 -Total Square Cm 0.70 -Exudate Amt Small -Exudate Type Serosanguineous -Wound Margin Distinct, Outline Attached -Granulation Amt Large (67-100%) -Granulation Quality Red -Necrosis Amt Small (1-33%) -Necrotic Tissue Type Adherent Slough -Texture (Maryann-wound Skin Appearance) Assessed -Moisture (Maryann-wound Skin Appearance) Assessed -Color (Maryann-wound Skin Appearance) Assessed, Erythema -Temperature (Maryann-wound Skin No Abnormality Appearance) (Pt Warm) -Tenderness on Palpation (Maryann-wound No Skin Appearance) -Ulcer Cleansing Soap and Water -Foul Odor after Cleansing No -Anesthetic Used 5% Lidocaine Gel Right Calf (cm) 35.5 Right Ankle (cm) 23 WC - Nurse 2 - General Ulcer CM Notes Start: 07/02/24 11:11 Freq: Status: Active Protocol: Activity Type Activity Date Activity User E-sign Co-sign Detail Recorded Client Recorded Date Recorded By Document 07/02/24 11:37 BMF [id number] 07/02/24 11:43 BMF Edit Result 07/02/24 11:37 BMF (1) [id number] 07/02/24 15:35 BMF Document 07/09/24 11:29 BMF [id number] 07/09/24 11:30 BMF Document 07/09/24 11:53 JF [id number] 07/09/24 11:54 JF (1) #13 Right Inferior Knee - Post Debridement (cm) - Length => 0 - Post Debridement (cm) - Width => 0 - Post Debridement (cm) - Depth => 0 - Total Square (Post) (cm) => 0 - Area of Debridement (cm) - Length => 0 - Area of Debridement (cm) - Width => 0 - Total Square (Area) (cm) => 0 - Wound/Ulcer Outcome => Healed- => Epithelialized - Bleeding Controlled with => NA #12 R ACHILLES - Clinical Debridement Epidermis / Dermis => Subcutaneous - Debridement - Open, 1st 20sq cm Yes => - Debridement - Subq, 1st 20sq cm No => Yes #10 R SUP POST CALF - Debridement - Subq, 1st 20sq cm Yes => No 07/02/24 07/09/24 07/09/24 11:37 11:29 11:53 Wound Center Nurse 2 15. RIGHT BUTTOCK CLUSTER -Time 11:30 -Procedure Performed No -Post Debridement (cm) - Length 0 -Post Debridement (cm) - Width 0 -Post Debridement (cm) - Depth 0 -Total Square (Post) (cm) 0 -Area of Debridement (cm) - Length 0 -Area of Debridement (cm) - Width 0 -Total Square (Area) (cm) 0 -Wound/Ulcer Outcome Healed- Epithelialized -Bleeding Controlled with NA 14. LEFT BUTTOCK -Time 11:30 -Procedure Performed No -Post Debridement (cm) - Length 0 -Post Debridement (cm) - Width 0 -Post Debridement (cm) - Depth 0 -Total Square (Post) (cm) 0 -Area of Debridement (cm) - Length 0 -Area of Debridement (cm) - Width 0 -Total Square (Area) (cm) 0 -Wound/Ulcer Outcome Healed- Epithelialized -Bleeding Controlled with NA #13 Right Inferior Knee -Post Debridement (cm) - Length 0 -Post Debridement (cm) - Width 0 -Post Debridement (cm) - Depth 0 -Total Square (Post) (cm) 0 -Area of Debridement (cm) - Length 0 -Area of Debridement (cm) - Width 0 -Total Square (Area) (cm) 0 -Wound/Ulcer Outcome Healed- Epithelialized -Bleeding Controlled with NA #12 R ACHILLES -Time 11:39 11:53 -Correct Patient Yes Yes -Correct Side, Site, Position Yes Yes -Correct Procedure Yes Yes -Procedure Performed Yes Yes -Type of Procedure Debridement Debridement -Clinical Debridement Subcutaneous Subcutaneous -Tissue Removed Subcutaneous Subcutaneous -Post Debridement (cm) - Length 0.4 0.5 -Post Debridement (cm) - Width 1 0.9 -Post Debridement (cm) - Depth 0.1 0.1 -Total Square (Post) (cm) 0.4 0.45 -Area of Debridement (cm) - Length 0.4 0.5 -Area of Debridement (cm) - Width 1 0.9 -Total Square (Area) (cm) 0.4 0.45 -Tunneling No No -Undermining/Tunneling No No -Circular Undermining No No -Wound/Ulcer Outcome Not Healed Not Healed -Ulcer Cleansing Rinsed/ Rinsed/ Irrigated with Irrigated with Saline Saline -Foul Odor after Cleansing No No -Bioengineered Tissue No -Bleeding Controlled with Pressure Pressure -Treatment Response Procedure Procedure Tolerated Well Tolerated Well -Offloading No -Debridement - Subq, 1st 20sq cm Yes Yes #10 R SUP POST CALF -Time 11:40 11:53 -Correct Patient Yes Yes -Correct Side, Site, Position Yes Yes -Correct Procedure Yes Yes -Procedure Performed Yes Yes -Type of Procedure Debridement Debridement -Clinical Debridement Subcutaneous Subcutaneous -Tissue Removed Subcutaneous Subcutaneous -Post Debridement (cm) - Length 1.3 1.2 -Post Debridement (cm) - Width 0.5 0.6 -Post Debridement (cm) - Depth 0.1 0.1 -Total Square (Post) (cm) 0.65 0.72 -Area of Debridement (cm) - Length 1.3 1.2 -Area of Debridement (cm) - Width 0.5 0.6 -Total Square (Area) (cm) 0.65 0.72 -Tunneling No No -Undermining/Tunneling No No -Circular Undermining No No -Wound/Ulcer Outcome Not Healed Not Healed -Ulcer Cleansing Rinsed/ Rinsed/ Irrigated with Irrigated with Saline Saline -Foul Odor after Cleansing No No -Bioengineered Tissue No No -Bleeding Controlled with Pressure Pressure -Treatment Response Procedure Procedure Tolerated Well Tolerated Well -Offloading No -Debridement - Subq, 1st 20sq cm No No Pain Scale: 0-10 Numeric Is Patient Pain Free? Yes Yes Yes - Nurse 3 - General Ulcer D/C NN Start: 07/02/24 11:11 Freq: Status: Active Protocol: Activity Type Activity Date Activity User E-sign Co-sign Detail Recorded Client Recorded Date Recorded By Document 07/02/24 11:47 KW [id number] 07/02/24 11:49 KW Document 07/09/24 12:19 RB [id number] 07/09/24 12:21 RB 07/02/24 07/09/24 11:47 12:19 Wound Care Center Nurse 3 #12 R ACHILLES -Ulcer Cleansing Wound Cleanser -Primary Dressing Applied Promogran Promogran Ollie Matter Ollie Matter -Primary Dressing Covered/Secured with Dry Gauze Dry Gauze & Roll Gauze, Secured with Tape -Promogran Ollie Matter 1 1 #10 R SUP POST CALF -Primary Dressing Applied Promogran Ollie Matter -Other Dressing OLLIE -Primary Dressing Covered/Secured with Dry Gauze & Dry Gauze & Roll Gauze, Roll Gauze, Secured with Secured with Tape Tape -Promogran Ollie Matter 1 Right -Tubular Bandage Single Layer -Size of Tubigrip Used Size D -Size D ($) 1 -Other HCS brand- double Left -Tubular Bandage Single Layer -Size of Tubigrip Used Size D -Size D ($) 1 -Other HCS brand- double BILAT LE -Tubular Bandage Double Layer -Size of Tubigrip Used Size D -Size D ($) 2 Treatment Response Procedure Tolerated Well Pain Scale: 0-10 Numeric Is Patient Pain Free? Yes Yes - Visit Discharge Discharge Condition Stable Stable Ambulatory Status Ambulatory, Ambulatory Walker Transportation Private Auto Medication Reconcilliation completed & No No provided to patient/care provider Clinical Summary of Care Provided Yes Yes Assessment/Plan Assessment/Plan (1) Non-pressure chronic ulcer of other part of right lower leg with fat layer exposed: CODE(S): L97.812 - Non-pressure chronic ulcer of other part of right lower leg with fat layer exposed PLAN: Patient was examined and evaluated. All findings were discussed with the patient. All questions were answered to the patient's satisfaction. Excisional debridement down to and including subcutaneous tissue with a number 5 mm dermal curette to the right posterior leg ulceration without incident. Predebridement measurement was 1.0 x 0.5 x 0.1 cm. Postdebridement measurement is 1.2 x 0.6 x 0.1 cm. Excisional debridement down to including subcutaneous tissue with a number 5 mm dermal curette to the right Achilles tendon ulceration without incident. Predebridement measurement was 0.4 x 0.7 x 0.1 cm. Postdebridement measurement is 0.5 x 0.9 x 0.1 cm. Right lower extremities were cleaned and patted dry. Moist present was applied to both wound areas followed by dry sterile dressing and double Tubigrip. Patient will have every other day dressing changes at the assisted living and will follow-up in 2 weeks. Follow-up at the wound care center with Dr. Sylvester in 2 week. (2) Non-pressure chronic ulcer of right heel and midfoot with fat layer exposed: CODE(S): L97.412 - Non-pressure chronic ulcer of right heel and midfoot with fat layer exposed
[2024-07-16 13:23] VITALS: RESP 18; TEMP 36.4
--- NOTE | 2024-07-16 13:46 | PN.PCM_ITS ---
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 She has been doing dressing changes. There is improvement to the wound. No drainage sign of infection Progress of Wound: Stable right lower extremity wounds. No sign of infection. Subjective Subjective Ms. Fox is a 83-year-old female presenting to wound care center follow-up evaluation of full-thickness wounds to right posterior leg. Patient has been compliant with dressing changes and compression. She admits to some rubbing from a shoe that was given at her assisted living but there is no evidence of breakdown of skin. She denies trauma. Denies constitutional symptoms. No other pedal complaints at this time. Objective Data Objective Data Vital Signs: Vital Signs Temp Pulse Resp BP O2 Del Method 97.6 F L 78 18 171/57 H Room Air 07/16/24 13:23 07/02/24 11:11 07/16/24 13:23 07/02/24 11:11 07/16/24 13:23 Oxygen Delivery Method Room Air Physical Exam Narrative Vascular: DP and PT pulses are palpable to bilateral extremity. CFT is brisk. Nonpitting edema appreciated to bilateral lower extremity. No erythema. Skin temperature great is warm to warm from proximal ankles to distal digit bilateral. Neurological: Light touch intact. Patient does respond to painful stimuli. Dermatological: Full-thickness ulceration to the right posterior leg measuring 1.3 x 0.6 x 0.1 cm. Right posterior leg wound is granular nature. No sign of infection. Right Achilles area full-thickness wound measuring 0.5 x 0.8 x 0.1 cm. Wound base is granular nature. No sign of infection. Excisional debridement down to and including subcutaneous tissue with a number 5 mm dermal curette to the right posterior leg ulceration without incident. Predebridement measurement was 1.1 x 0.5 x 0.1 cm. Postdebridement measurement is 1.3 x 0.6 x 0.1 cm. Excisional debridement down to including subcutaneous tissue with a number 5 mm dermal curette to the right Achilles tendon ulceration without incident. Predebridement measurement was 0.4 x 0.6 x 0.1 cm. Postdebridement measurement is 0.5 x 0.8 x 0.1 cm. Musculoskeletal: Mild pain on palpation to both full-thickness ulceration. No pain with calf compression. Debridement Note Debridement Note Debridement Free Text: Excisional debridement down to and including subcutaneous tissue with a number 5 mm dermal curette to the right posterior leg ulceration without incident. Predebridement measurement was 1.1 x 0.5 x 0.1 cm. Postdebridement measurement is 1.3 x 0.6 x 0.1 cm. Excisional debridement down to including subcutaneous tissue with a number 5 mm dermal curette to the right Achilles tendon ulceration without incident. Predebridement measurement was 0.4 x 0.6 x 0.1 cm. Postdebridement measurement is 0.5 x 0.8 x 0.1 cm. 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 ) ) Arrival Mode Ambulatory, Ambulatory, Walker Walker Patient Identification Verified (Name & Yes Yes ) Vital Signs Temperature (97.8 F-99.1 F) 97.0 F L 97.6 F L Temperature Source Temporal Temporal Pulse Rate (60-100) 78 Pulse Location Monitor Monitor Respiratory Rate (12-18) 16 18 Respiratory rate source Observation Observation Oxygen Delivery Method Room Air Room Air Blood Pressure (90/60-120/80) 171/57 H Blood Pressure Mean (mm Hg) 95 Source Monitor Monitor Position Semi-Fowlers Semi-Fowlers Blood Pressure Location Left Arm Right Forearm History Since Last Visit- (Skip if this is Patient's initial visit) Have you changed medications since your No No last visit? Any new allergies or adverse reactions No No Had a fall/change in ADL's that may No No increase risk of falls Signs or symptoms of abuse and/or No No neglect since last visit Have you been in the hospital since your No No last visit? Has dressing in place as prescribed Yes Yes Has compression in place as prescribed Yes Yes Has offloadiing in place as prescribed N/A Yes Experienced any changes in pain level or No No management Left Footwear Regular Shoe Regular Shoe Right Footwear Regular Shoe Surgical Shoe with pressure relief insole Pain Scale: 0-10 Numeric Is Patient Pain Free? Yes Yes WC - Nurse 1 - General Ulcer Measurement Start: 07/02/24 11:11 Freq: Status: Active Protocol: Activity Type Activity Date Activity User E-sign Co-sign Detail Recorded Client Recorded Date Recorded By Document 07/02/24 11:11 KW [id number] 07/02/24 11:25 KW Document 07/16/24 13:23 KW [id number] 07/16/24 13:35 KW 07/02/24 07/16/24 11:11 13:23 Wound Center Nurse 1 #13 Right Inferior Knee -Current Size (cm) - Length 0 -Current Size (cm) - Width 0 -Current Size (cm) - Depth 0 -Total Square Cm 0 #12 R ACHILLES -Current Size (cm) - Length 0.5 0.5 -Current Size (cm) - Width 1 1 -Current Size (cm) - Depth 0.1 0.1 -Total Square Cm 0.5 0.5 -Exudate Amt Small Small -Exudate Type Serosanguineous Serosanguineous -Wound Margin Distinct, Distinct, Outline Outline Attached Attached -Granulation Amt Small (1-33%) Large (67-100%) -Granulation Quality [place] Red -Necrosis Amt Large (67-100%) -Necrotic Tissue Type Adherent Slough -Texture (Maryann-wound Skin Appearance) Assessed Assessed -Moisture (Maryann-wound Skin Appearance) Assessed Assessed -Color (Maryann-wound Skin Appearance) Assessed, Assessed Erythema -Temperature (Maryann-wound Skin No Abnormality No Abnormality Appearance) (Pt Warm) (Pt Warm) -Tenderness on Palpation (Maryann-wound Yes No Skin Appearance) -Ulcer Cleansing Soap and Water Soap and Water -Foul Odor after Cleansing No -Anesthetic Used 5% Lidocaine 5% Lidocaine Gel Gel #10 R SUP POST CALF -Current Size (cm) - Length 1.4 1 -Current Size (cm) - Width 0.5 0.5 -Current Size (cm) - Depth 0.1 0.1 -Total Square Cm 0.70 0.5 -Exudate Amt Small Small -Exudate Type Serosanguineous Serosanguineous -Wound Margin Distinct, Distinct, Outline Outline Attached Attached -Granulation Amt Large (67-100%) Large (67-100%) -Granulation Quality Red Red -Necrosis Amt Small (1-33%) -Necrotic Tissue Type Adherent Slough -Texture (Maryann-wound Skin Appearance) Assessed Assessed -Moisture (Maryann-wound Skin Appearance) Assessed Assessed -Color (Maryann-wound Skin Appearance) Assessed, Assessed Erythema -Temperature (Maryann-wound Skin No Abnormality No Abnormality Appearance) (Pt Warm) (Pt Warm) -Tenderness on Palpation (Maryann-wound No No Skin Appearance) -Ulcer Cleansing Soap and Water Soap and Water -Foul Odor after Cleansing No No -Anesthetic Used 5% Lidocaine 5% Lidocaine Gel Gel Right Calf (cm) 35.5 42 Right Ankle (cm) 23 22.3 WC - Nurse 2 - General Ulcer CM Notes Start: 07/02/24 11:11 Freq: Status: Active Protocol: Activity Type Activity Date Activity User E-sign Co-sign Detail Recorded Client Recorded Date Recorded By Document 07/02/24 11:37 BM [id number] 07/02/24 11:43 BM Edit Result 07/02/24 11:37 BM (1) [id number] 07/02/24 15:35 BMF Document 07/09/24 11:29 BMF [id number] 07/09/24 11:30 BM Document 07/09/24 11:53 [id number] 07/09/24 11:54 (1) #13 Right Inferior Knee - Post Debridement (cm) - Length => 0 - Post Debridement (cm) - Width => 0 - Post Debridement (cm) - Depth => 0 - Total Square (Post) (cm) => 0 - Area of Debridement (cm) - Length => 0 - Area of Debridement (cm) - Width => 0 - Total Square (Area) (cm) => 0 - Wound/Ulcer Outcome => Healed- => Epithelialized - Bleeding Controlled with => NA #12 R ACHILLES - Clinical Debridement Epidermis / Dermis => Subcutaneous - Debridement - Open, 1st 20sq cm Yes => - Debridement - Subq, 1st 20sq cm No => Yes #10 R SUP POST CALF - Debridement - Subq, 1st 20sq cm Yes => No 07/02/24 07/09/24 07/09/24 11:37 11:29 11:53 Wound Center Nurse 2 15. RIGHT BUTTOCK CLUSTER -Time 11:30 -Procedure Performed No -Post Debridement (cm) - Length 0 -Post Debridement (cm) - Width 0 -Post Debridement (cm) - Depth 0 -Total Square (Post) (cm) 0 -Area of Debridement (cm) - Length 0 -Area of Debridement (cm) - Width 0 -Total Square (Area) (cm) 0 -Wound/Ulcer Outcome Healed- Epithelialized -Bleeding Controlled with NA 14. LEFT BUTTOCK -Time 11:30 -Procedure Performed No -Post Debridement (cm) - Length 0 -Post Debridement (cm) - Width 0 -Post Debridement (cm) - Depth 0 -Total Square (Post) (cm) 0 -Area of Debridement (cm) - Length 0 -Area of Debridement (cm) - Width 0 -Total Square (Area) (cm) 0 -Wound/Ulcer Outcome Healed- Epithelialized -Bleeding Controlled with NA #13 Right Inferior Knee -Post Debridement (cm) - Length 0 -Post Debridement (cm) - Width 0 -Post Debridement (cm) - Depth 0 -Total Square (Post) (cm) 0 -Area of Debridement (cm) - Length 0 -Area of Debridement (cm) - Width 0 -Total Square (Area) (cm) 0 -Wound/Ulcer Outcome Healed- Epithelialized -Bleeding Controlled with NA #12 R ACHILLES -Time 11:39 11:53 -Correct Patient Yes Yes -Correct Side, Site, Position Yes Yes -Correct Procedure Yes Yes -Procedure Performed Yes Yes -Type of Procedure Debridement Debridement -Clinical Debridement Subcutaneous Subcutaneous -Tissue Removed Subcutaneous Subcutaneous -Post Debridement (cm) - Length 0.4 0.5 -Post Debridement (cm) - Width 1 0.9 -Post Debridement (cm) - Depth 0.1 0.1 -Total Square (Post) (cm) 0.4 0.45 -Area of Debridement (cm) - Length 0.4 0.5 -Area of Debridement (cm) - Width 1 0.9 -Total Square (Area) (cm) 0.4 0.45 -Tunneling No No -Undermining/Tunneling No No -Circular Undermining No No -Wound/Ulcer Outcome Not Healed Not Healed -Ulcer Cleansing Rinsed/ Rinsed/ Irrigated with Irrigated with Saline Saline -Foul Odor after Cleansing No No -Bioengineered Tissue No -Bleeding Controlled with Pressure Pressure -Treatment Response Procedure Procedure Tolerated Well Tolerated Well -Offloading No -Debridement - Subq, 1st 20sq cm Yes Yes #10 R SUP POST CALF -Time 11:40 11:53 -Correct Patient Yes Yes -Correct Side, Site, Position Yes Yes -Correct Procedure Yes Yes -Procedure Performed Yes Yes -Type of Procedure Debridement Debridement -Clinical Debridement Subcutaneous Subcutaneous -Tissue Removed Subcutaneous Subcutaneous -Post Debridement (cm) - Length 1.3 1.2 -Post Debridement (cm) - Width 0.5 0.6 -Post Debridement (cm) - Depth 0.1 0.1 -Total Square (Post) (cm) 0.65 0.72 -Area of Debridement (cm) - Length 1.3 1.2 -Area of Debridement (cm) - Width 0.5 0.6 -Total Square (Area) (cm) 0.65 0.72 -Tunneling No No -Undermining/Tunneling No No -Circular Undermining No No -Wound/Ulcer Outcome Not Healed Not Healed -Ulcer Cleansing Rinsed/ Rinsed/ Irrigated with Irrigated with Saline Saline -Foul Odor after Cleansing No No -Bioengineered Tissue No No -Bleeding Controlled with Pressure Pressure -Treatment Response Procedure Procedure Tolerated Well Tolerated Well -Offloading No -Debridement - Subq, 1st 20sq cm No No Pain Scale: 0-10 Numeric Is Patient Pain Free? Yes Yes Yes - Nurse 3 - General Ulcer D/C NN Start: 07/02/24 11:11 Freq: Status: Active Protocol: Activity Type Activity Date Activity User E-sign Co-sign Detail Recorded Client Recorded Date Recorded By Document 07/02/24 11:47 KW [id number] 07/02/24 11:49 KW Document 07/09/24 12:19 RB [id number] 07/09/24 12:21 RB 07/02/24 07/09/24 11:47 12:19 Wound Care Center Nurse 3 #12 R ACHILLES -Ulcer Cleansing Wound Cleanser -Primary Dressing Applied Promogran Promogran Ollie Matter Ollie Matter -Primary Dressing Covered/Secured with Dry Gauze Dry Gauze & Roll Gauze, Secured with Tape -Promogran Ollie Matter 1 1 #10 R SUP POST CALF -Primary Dressing Applied Promogran Ollie Matter -Other Dressing OLLIE -Primary Dressing Covered/Secured with Dry Gauze & Dry Gauze & Roll Gauze, Roll Gauze, Secured with Secured with Tape Tape -Promogran Ollie Matter 1 Right -Tubular Bandage Single Layer -Size of Tubigrip Used Size D -Size D ($) 1 -Other HCS brand- double Left -Tubular Bandage Single Layer -Size of Tubigrip Used Size D -Size D ($) 1 -Other HCS brand- double BILAT LE -Tubular Bandage Double Layer -Size of Tubigrip Used Size D -Size D ($) 2 Treatment Response Procedure Tolerated Well Pain Scale: 0-10 Numeric Is Patient Pain Free? Yes Yes WC - Visit Discharge Discharge Condition Stable Stable Ambulatory Status Ambulatory, Ambulatory Walker Transportation Private Auto Medication Reconcilliation completed & No No provided to patient/care provider Clinical Summary of Care Provided Yes Yes Assessment/Plan Assessment/Plan (1) Non-pressure chronic ulcer of other part of right lower leg with fat layer exposed: CODE(S): L97.812 - Non-pressure chronic ulcer of other part of right lower leg with fat layer exposed PLAN: Patient was examined and evaluated. All findings were discussed with the patient. All questions were answered to the patient's satisfaction. Excisional debridement down to and including subcutaneous tissue with a number 5 mm dermal curette to the right posterior leg ulceration without incident. Predebridement measurement was 1.1 x 0.5 x 0.1 cm. Postdebridement measurement is 1.3 x 0.6 x 0.1 cm. Excisional debridement down to including subcutaneous tissue with a number 5 mm dermal curette to the right Achilles tendon ulceration without incident. Predebridement measurement was 0.4 x 0.6 x 0.1 cm. Postdebridement measurement is 0.5 x 0.8 x 0.1 cm. Right lower extremities were cleaned and patted dry. Moist OLLIE was applied to both wound areas followed by dry sterile dressing and double Tubigrip. Patient will have every other day dressing changes at the assisted living and will follow-up in 2 weeks. Follow-up at the wound care center with Dr. Sylvester in 2 week. (2) Non-pressure chronic ulcer of right heel and midfoot with fat layer exposed: CODE(S): L97.412 - Non-pressure chronic ulcer of right heel and midfoot with fat layer exposed
== END 2024-07-18 23:59 | disposition home or self-care (01) ==
LOC: WC 12:15
PROVIDERS: PCP Family Medicine; Referring Provider Physician Assistant; Visit Provider Podiatrist Foot & Ankle Surgery
DX: L97.812 Non-pressure chronic ulcer of other part of right lower leg with fat layer exposed (principal); L97.412 Non-pressure chronic ulcer of right heel and midfoot with fat layer exposed; Z79.01 Long term (current) use of anticoagulants; Z79.899 Other long term (current) drug therapy
CPT/HCPCS: 11042; 97597; 99212; 99213; G0463

== ENCOUNTER 2024-08-13 12:15 | Outpatient (RCR) | payer MEDICARE, SELFPAY ==
[2024-07-19 01:26] VITALS: BP 171/57; PULSE 78; RESP 18; TEMP 36.4
[2024-07-30 12:30] VITALS: BP 164/59; PULSE 69; RESP 18; TEMP 36.1
--- NOTE | 2024-07-30 13:17 | PCM.WC.PN ---
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 She has been doing dressing changes. There is improvement to the wound. No drainage sign of infection Progress of Wound: Stable right lower extremity wounds. No sign of infection. Subjective Subjective Ms. Fox is a 83-year-old female presenting to wound care center follow-up evaluation of full-thickness wounds to right posterior leg. Patient has been compliant with dressing changes and compression. She admits to some rubbing from a shoe that was given at her assisted living but there is no evidence of breakdown of skin but now improving. She denies trauma. Denies constitutional symptoms. No other pedal complaints at this time. Objective Data Objective Data Vital Signs: Vital Signs Temp Pulse Resp BP O2 Del Method 97 F L 69 18 164/59 H Room Air 07/30/24 12:30 07/30/24 12:30 07/30/24 12:30 07/30/24 12:30 07/30/24 12:30 Oxygen Delivery Method Room Air Physical Exam Narrative Vascular: DP and PT pulses are palpable to bilateral extremity. CFT is brisk. Nonpitting edema appreciated to bilateral lower extremity. No erythema. Skin temperature great is warm to warm from proximal ankles to distal digit bilateral. Neurological: Light touch intact. Patient does respond to painful stimuli. Dermatological: Full-thickness ulceration to the right posterior leg measuring 0.9 x 0.4 x 0.1 cm. Right posterior leg wound is granular nature. No sign of infection. Right Achilles area full-thickness wound measuring 0.4 x 1.1 x 0.1 cm. Wound base is granular nature. No sign of infection. Evidence of improved breakdown of skin to the lateral aspect of the full-thickness Achilles wound stable with no sign of infection. Excisional debridement down to and including subcutaneous tissue with a number 5 mm dermal curette to the right posterior leg ulceration without incident. Predebridement measurement was 0.8 x 0.3 x 0.1 cm. Postdebridement measurement is 0.9 x 0.4 x 0.1 cm. Excisional debridement down to including subcutaneous tissue with a number 5 mm dermal curette to the right Achilles tendon ulceration without incident. Predebridement measurement was 0.3 x 1.0 x 0.1 cm. Postdebridement measurement is 0.4 x 1.1 x 0.1 cm. Musculoskeletal: Mild pain on palpation to both full-thickness ulceration. No pain with calf compression. Debridement Note Debridement Note Debridement Free Text: Excisional debridement down to and including subcutaneous tissue with a number 5 mm dermal curette to the right posterior leg ulceration without incident. Predebridement measurement was 0.8 x 0.3 x 0.1 cm. Postdebridement measurement is 0.9 x 0.4 x 0.1 cm. Excisional debridement down to including subcutaneous tissue with a number 5 mm dermal curette to the right Achilles tendon ulceration without incident. Predebridement measurement was 0.3 x 1.0 x 0.1 cm. Postdebridement measurement is 0.4 x 1.1 x 0.1 cm. 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 ) Arrival Mode Ambulatory Accompanied by self Patient Identification Verified (Name & Yes ) Safety Precautions Fall Prevention Vital Signs Temperature (97.8 F-99.1 F) 97 F L Temperature Source Temporal Pulse Rate (60-100) 69 Pulse Location Monitor Respiratory Rate (12-18) 18 Respiratory rate source Observation Oxygen Delivery Method Room Air Blood Pressure (90/60-120/80) 164/59 H Blood Pressure Mean (mm Hg) 94 Source Monitor Position Sitting Blood Pressure Location Left Arm History Since Last Visit- (Skip if this is Patient's initial visit) Has dressing in place as prescribed Yes Has compression in place as prescribed Yes Has offloadiing in place as prescribed Yes Experienced any changes in pain level or Yes management Left Footwear Regular Shoe Right Footwear Diabetic Shoe Pain Scale: 0-10 Numeric Is Patient Pain Free? Yes - Nurse 1 - General Ulcer Measurement Start: 07/30/24 12:30 Freq: Status: Active Protocol: Activity Type Activity Date Activity User E-sign Co-sign Detail Recorded Client Recorded Date Recorded By Document 07/30/24 12:30 AK [id number] 07/30/24 12:33 AK 07/30/24 12:30 Wound Center Nurse 1 #12 R ACHILLES -Current Size (cm) - Length 0.1 -Current Size (cm) - Width 0.1 -Current Size (cm) - Depth 0.1 -Total Square Cm 0.01 -Photo Taken No -Tunneling No -Undermining/Tunneling No -Circular Undermining No -Wound Margin Flat & Intact -Granulation Amt Small (1-33%) -Necrosis Amt Large (67-100%) -Necrotic Tissue Type Adherent Slough -Texture (Maryann-wound Skin Appearance) Assessed -Moisture (Maryann-wound Skin Appearance) Assessed -Color (Maryann-wound Skin Appearance) Assessed -Temperature (Maryann-wound Skin No Abnormality Appearance) (Pt Warm) -Tenderness on Palpation (Maryann-wound No Skin Appearance) -Ulcer Cleansing Soap and Water -Foul Odor after Cleansing No -Anesthetic Used 5% Lidocaine Gel #10 R SUP POST CALF -Current Size (cm) - Length 0.1 -Current Size (cm) - Width 0.1 -Current Size (cm) - Depth 0.1 -Total Square Cm 0.01 -Photo Taken No -Tunneling No -Undermining/Tunneling No -Circular Undermining No -Exudate Amt Small -Exudate Type Serosanguineous -Wound Margin Flat & Intact -Granulation Amt None Present (0 %) -Necrosis Amt Large (67-100%) -Necrotic Tissue Type Eschar -Texture (Maryann-wound Skin Appearance) Assessed -Moisture (Maryann-wound Skin Appearance) Assessed -Color (Maryann-wound Skin Appearance) Assessed -Temperature (Maryann-wound Skin No Abnormality Appearance) (Pt Warm) -Tenderness on Palpation (Maryann-wound No Skin Appearance) -Ulcer Cleansing Soap and Water -Foul Odor after Cleansing No -Anesthetic Used 5% Lidocaine Gel Right Calf (cm) 36.5 Right Ankle (cm) 21.5 Left Calf (cm) 36.5 WC - Nurse 2 - General Ulcer CM Notes Start: 07/30/24 12:30 Freq: Status: Active Protocol: Activity Type Activity Date Activity User E-sign Co-sign Detail Recorded Client Recorded Date Recorded By Document 07/30/24 12:44 [email or web address] [id number] 07/30/24 12:46 [email or web address] 07/30/24 12:44 Wound Center Nurse 2 #12 R ACHILLES -Time 12:44 -Correct Patient Yes -Correct Side, Site, Position Yes -Correct Procedure Yes -Procedure Performed Yes -Type of Procedure Debridement -Clinical Debridement Subcutaneous -Tissue Removed Subcutaneous -Post Debridement (cm) - Length 0.4 -Post Debridement (cm) - Width 1.1 -Post Debridement (cm) - Depth 0.1 -Total Square (Post) (cm) 0.44 -Area of Debridement (cm) - Length 0.4 -Area of Debridement (cm) - Width 1.1 -Total Square (Area) (cm) 0.44 -Tunneling No -Undermining/Tunneling No -Circular Undermining No -Wound/Ulcer Outcome Not Healed -Ulcer Cleansing Rinsed/ Irrigated with Saline -Foul Odor after Cleansing No -Bioengineered Tissue No -Bleeding Controlled with Pressure -Treatment Response Procedure Tolerated Well -Offloading No -Debridement - Subq, 1st 20sq cm No #10 R SUP POST CALF -Time 12:45 -Correct Patient Yes -Correct Side, Site, Position Yes -Correct Procedure Yes -Procedure Performed Yes -Type of Procedure Debridement -Clinical Debridement Subcutaneous -Tissue Removed Subcutaneous -Post Debridement (cm) - Length 0.9 -Post Debridement (cm) - Width 0.4 -Post Debridement (cm) - Depth 0.1 -Total Square (Post) (cm) 0.36 -Area of Debridement (cm) - Length 0.9 -Area of Debridement (cm) - Width 0.4 -Total Square (Area) (cm) 0.36 -Tunneling No -Undermining/Tunneling No -Circular Undermining No -Wound/Ulcer Outcome Not Healed -Ulcer Cleansing Rinsed/ Irrigated with Saline -Foul Odor after Cleansing No -Bioengineered Tissue No -Bleeding Controlled with Pressure -Treatment Response Procedure Tolerated Well -Offloading Yes -Type of Offloading Surgical Shoe -Debridement - Subq, 1st 20sq cm Yes Pain Scale: 0-10 Numeric Is Patient Pain Free? Yes WC - Nurse 3 - General Ulcer D/C NN Start: 07/30/24 12:30 Freq: Status: Active Protocol: Activity Type Activity Date Activity User E-sign Co-sign Detail Recorded Client Recorded Date Recorded By Document 07/30/24 12:52 RB [id number] 07/30/24 12:58 RB 07/30/24 12:52 Wound Care Center Nurse 3 #12 R ACHILLES -Ulcer Cleansing Rinsed/ Irrigated with Saline -Primary Dressing Applied C Hydrogel, NonAdherent Contact Layer -Other Dressing ABD for heel nurses hat -Primary Dressing Covered/Secured with Dry Gauze & Roll Gauze, Secured with Tape -Hydrogel 1 #10 R SUP POST CALF -Other Dressing adaptic / hydrogel BLE -Tubular Bandage Double Layer -Size of Tubigrip Used Size D -Size D ($) 4 Treatment Response Procedure Tolerated Well Pain Scale: 0-10 Numeric Is Patient Pain Free? Yes WC - Visit Discharge Discharge Condition Stable Ambulatory Status Ambulatory Transportation Private Auto Medication Reconcilliation completed & No provided to patient/care provider Clinical Summary of Care Provided Yes Assessment/Plan Assessment/Plan (1) Non-pressure chronic ulcer of other part of right lower leg with fat layer exposed: CODE(S): L97.812 - Non-pressure chronic ulcer of other part of right lower leg with fat layer exposed PLAN: Patient was examined and evaluated. All findings were discussed with the patient. All questions were answered to the patient's satisfaction. Excisional debridement down to and including subcutaneous tissue with a number 5 mm dermal curette to the right posterior leg ulceration without incident. Predebridement measurement was 0.8 x 0.3 x 0.1 cm. Postdebridement measurement is 0.9 x 0.4 x 0.1 cm. Excisional debridement down to including subcutaneous tissue with a number 5 mm dermal curette to the right Achilles tendon ulceration without incident. Predebridement measurement was 0.3 x 1.0 x 0.1 cm. Postdebridement measurement is 0.4 x 1.1 x 0.1 cm. The right lower extremities are clean and patted dry. Hydrogel was applied to the full-thickness wounds covered with dry sterile dressing and compression wrap. Patient will perform daily dressing changes as ordered. Educated the patient to check her Achilles tendon area with a surgical shoe that she is wearing to make sure that is not causing insult to the breakdown of skin area that has been improving. Patient is understanding of this. Follow-up at the wound care center with Dr. Sylvester in 2 week. (2) Non-pressure chronic ulcer of right heel and midfoot with fat layer exposed: CODE(S): L97.412 - Non-pressure chronic ulcer of right heel and midfoot with fat layer exposed
--- NOTE | 2024-08-16 20:16 | PN.PCM_ITS ---
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 She has been doing dressing changes. There is improvement to the wound. No drainage sign of infection Progress of Wound: Stable right lower extremity wounds. No sign of infection. Subjective Subjective Ms Fox is 83-year-old female presented clinic today follow-up evaluation of full-thickness wound to the right posterior leg. Patient has been using new ten nis shoes and states it has been bruising her heel. She denies any increase in her wounds but it has been causing her pain. She has been compliant with treatment per orders and with nursing staff changing dressings to the right leg. She denies trauma. Denies constitutional symptoms. No other pedal complaints at this time. Objective Data Objective Data Vital Signs: Vital Signs Temp Pulse Resp BP O2 Del Method 97 F L 69 18 164/59 H Room Air 07/30/24 12:30 07/30/24 12:30 07/30/24 12:30 07/30/24 12:30 07/30/24 12:30 Oxygen Delivery Method Room Air Physical Exam Narrative Vascular: DP and PT pulses are palpable to bilateral extremity. CFT is brisk. Nonpitting edema appreciated to bilateral lower extremity. No erythema. Skin temperature great is warm to warm from proximal ankles to distal digit bilateral.Evidence of ecchymosis appreciated to the right posterior calf and Achilles tendon secondary to shoe gear. Neurological: Light touch intact. Patient does respond to painful stimuli. Dermatological: Full-thickness ulceration to the right posterior leg measuring 1.7 x 0.5 x 0.1 cm. Right posterior leg wound is granular nature. No sign of infection. Right Achilles area full-thickness wound measuring 0.5 x 0.8 x 0.1 cm. Wound base is granular nature. No sign of infection. Evidence of ecchymosis appreciated to the right posterior calf and Achilles tendon secondary to shoe gear. Excisional debridement down to and including subcutaneous tissue with a number 5 mm dermal curette to the right posterior leg ulceration without incident. Predebridement measurement was 1.5 x 0.3 x 0.1 cm. Postdebridement measurement is 1.7 x 0.5 x 0.1 cm Excisional debridement down to including subcutaneous tissue with a number 5 mm dermal curette to the right Achilles tendon ulceration without incident. Predebridement measurement was 0.3 x 0.6 x 0.1 cm. Postdebridement measurement is 0.5 x 0.8 x 0.1 cm. Musculoskeletal: Mild pain on palpation to both full-thickness ulceration. No pain with calf compression. Debridement Note Debridement Note Debridement Free Text: Excisional debridement down to and including subcutaneous tissue with a number 5 mm dermal curette to the right posterior leg ulceration without incident. Predebridement measurement was 1.5 x 0.3 x 0.1 cm. Postdebridement measurement is 1.7 x 0.5 x 0.1 cm Excisional debridement down to including subcutaneous tissue with a number 5 mm dermal curette to the right Achilles tendon ulceration without incident. Predebridement measurement was 0.3 x 0.6 x 0.1 cm. Postdebridement measurement is 0.5 x 0.8 x 0.1 cm. 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 ) Arrival Mode Ambulatory Accompanied by self Patient Identification Verified (Name & Yes ) Safety Precautions Fall Prevention Vital Signs Temperature (97.8 F-99.1 F) 97 F L Temperature Source Temporal Pulse Rate (60-100) 69 Pulse Location Monitor Respiratory Rate (12-18) 18 Respiratory rate source Observation Oxygen Delivery Method Room Air Blood Pressure (90/60-120/80) 164/59 H Blood Pressure Mean (mm Hg) 94 Source Monitor Position Sitting Blood Pressure Location Left Arm History Since Last Visit- (Skip if this is Patient's initial visit) Has dressing in place as prescribed Yes Has compression in place as prescribed Yes Has offloadiing in place as prescribed Yes Experienced any changes in pain level or Yes management Left Footwear Regular Shoe Right Footwear Diabetic Shoe Pain Scale: 0-10 Numeric Is Patient Pain Free? Yes WC - Nurse 1 - General Ulcer Measurement Start: 07/30/24 12:30 Freq: Status: Active Protocol: Activity Type Activity Date Activity User E-sign Co-sign Detail Recorded Client Recorded Date Recorded By Document 07/30/24 12:30 DE [id number] 07/30/24 12:33 DE 07/30/24 12:30 Wound Center Nurse 1 #12 R ACHILLES -Current Size (cm) - Length 0.1 -Current Size (cm) - Width 0.1 -Current Size (cm) - Depth 0.1 -Total Square Cm 0.01 -Photo Taken No -Tunneling No -Undermining/Tunneling No -Circular Undermining No -Wound Margin Flat & Intact -Granulation Amt Small (1-33%) -Necrosis Amt Large (67-100%) -Necrotic Tissue Type Adherent Slough -Texture (Maryann-wound Skin Appearance) Assessed -Moisture (Maryann-wound Skin Appearance) Assessed -Color (Maryann-wound Skin Appearance) Assessed -Temperature (Maryann-wound Skin No Abnormality Appearance) (Pt Warm) -Tenderness on Palpation (Maryann-wound No Skin Appearance) -Ulcer Cleansing Soap and Water -Foul Odor after Cleansing No -Anesthetic Used 5% Lidocaine Gel #10 R SUP POST CALF -Current Size (cm) - Length 0.1 -Current Size (cm) - Width 0.1 -Current Size (cm) - Depth 0.1 -Total Square Cm 0.01 -Photo Taken No -Tunneling No -Undermining/Tunneling No -Circular Undermining No -Exudate Amt Small -Exudate Type Serosanguineous -Wound Margin Flat & Intact -Granulation Amt None Present (0 %) -Necrosis Amt Large (67-100%) -Necrotic Tissue Type Eschar -Texture (Maryann-wound Skin Appearance) Assessed -Moisture (Maryann-wound Skin Appearance) Assessed -Color (Maryann-wound Skin Appearance) Assessed -Temperature (Maryann-wound Skin No Abnormality Appearance) (Pt Warm) -Tenderness on Palpation (Maryann-wound No Skin Appearance) -Ulcer Cleansing Soap and Water -Foul Odor after Cleansing No -Anesthetic Used 5% Lidocaine Gel Right Calf (cm) 36.5 Right Ankle (cm) 21.5 Left Calf (cm) 36.5 WC - Nurse 2 - General Ulcer CM Notes Start: 07/30/24 12:30 Freq: Status: Active Protocol: Activity Type Activity Date Activity User E-sign Co-sign Detail Recorded Client Recorded Date Recorded By Document 07/30/24 12:44 [id number] 07/30/24 12:46 JF Document 08/13/24 12:39 [id number] 08/13/24 12:42 07/30/24 08/13/24 12:44 12:39 Wound Center Nurse 2 #12 R ACHILLES -Time 12:44 12:39 -Correct Patient Yes Yes -Correct Side, Site, Position Yes Yes -Correct Procedure Yes Yes -Procedure Performed Yes Yes -Type of Procedure Debridement Debridement -Clinical Debridement Subcutaneous Subcutaneous -Tissue Removed Subcutaneous Subcutaneous -Post Debridement (cm) - Length 0.4 0.5 -Post Debridement (cm) - Width 1.1 0.8 -Post Debridement (cm) - Depth 0.1 0.1 -Total Square (Post) (cm) 0.44 0.40 -Area of Debridement (cm) - Length 0.4 0.5 -Area of Debridement (cm) - Width 1.1 0.8 -Total Square (Area) (cm) 0.44 0.40 -Tunneling No No -Undermining/Tunneling No No -Circular Undermining No No -Wound/Ulcer Outcome Not Healed Not Healed -Ulcer Cleansing Rinsed/ Rinsed/ Irrigated with Irrigated with Saline Saline -Foul Odor after Cleansing No No -Bioengineered Tissue No No -Bleeding Controlled with Pressure Pressure -Treatment Response Procedure Procedure Tolerated Well Tolerated Well -Offloading No No -Debridement - Subq, 1st 20sq cm No Yes #10 R SUP POST CALF -Time 12:45 12:39 -Correct Patient Yes Yes -Correct Side, Site, Position Yes Yes -Correct Procedure Yes Yes -Procedure Performed Yes Yes -Type of Procedure Debridement Debridement -Clinical Debridement Subcutaneous Subcutaneous -Tissue Removed Subcutaneous Subcutaneous -Post Debridement (cm) - Length 0.9 1.7 -Post Debridement (cm) - Width 0.4 0.5 -Post Debridement (cm) - Depth 0.1 0.1 -Total Square (Post) (cm) 0.36 0.85 -Area of Debridement (cm) - Length 0.9 1.7 -Area of Debridement (cm) - Width 0.4 0.5 -Total Square (Area) (cm) 0.36 0.85 -Tunneling No No -Undermining/Tunneling No No -Circular Undermining No No -Wound/Ulcer Outcome Not Healed Not Healed -Ulcer Cleansing Rinsed/ Rinsed/ Irrigated with Irrigated with Saline Saline -Foul Odor after Cleansing No No -Bioengineered Tissue No No -Bleeding Controlled with Pressure Pressure -Treatment Response Procedure Procedure Tolerated Well Tolerated Well -Offloading Yes No -Type of Offloading Surgical Shoe -Debridement - Subq, 1st 20sq cm Yes No Pain Scale: 0-10 Numeric Is Patient Pain Free? Yes Yes - Nurse 3 - General Ulcer D/C NN Start: 07/30/24 12:30 Freq: Status: Active Protocol: Activity Type Activity Date Activity User E-sign Co-sign Detail Recorded Client Recorded Date Recorded By Document 07/30/24 12:52 RB [id number] 07/30/24 12:58 RB Document 08/13/24 12:58 DL [id number] 08/13/24 13:00 DL 07/30/24 08/13/24 12:52 12:58 Wound Care Center Nurse 3 #12 R ACHILLES -Ulcer Cleansing Rinsed/ Rinsed/ Irrigated with Irrigated with Saline Saline -Foul Odor after Cleansing No -Primary Dressing Applied C Hydrogel, C Hydrogel NonAdherent Contact Layer -Other Dressing ABD for heel nurses hat -Primary Dressing Covered/Secured with Dry Gauze & Dry Gauze & Roll Gauze, Roll Gauze, Secured with Secured with Tape Tape -Other Covering ABD -Hydrogel 1 1 #10 R SUP POST CALF -Ulcer Cleansing Rinsed/ Irrigated with Saline -Foul Odor after Cleansing No -Other Dressing adaptic / Hydrogel hydrogel -Primary Dressing Covered/Secured with Dry Gauze & Roll Gauze, Secured with Tape BLE -Compression Wrap Rhys Wrap -Tubular Bandage Double Layer -Size of Tubigrip Used Size D -Size D ($) 4 Treatment Response Procedure Procedure Tolerated Well Tolerated Well Pain Scale: 0-10 Numeric Is Patient Pain Free? Yes Yes WC - Visit Discharge Discharge Condition Stable Stable Ambulatory Status Ambulatory Ambulatory, Walker Transportation Private Auto Private Auto Medication Reconcilliation completed & No provided to patient/care provider Clinical Summary of Care Provided Yes Facility Type [facility] Care Facility Orders Sent Yes Assessment/Plan Assessment/Plan (1) Non-pressure chronic ulcer of other part of right lower leg with fat layer exposed: CODE(S): L97.812 - Non-pressure chronic ulcer of other part of right lower leg with fat layer exposed PLAN: Patient was examined and evaluated. All findings were discussed with the patient. All questions were answered to the patient's satisfaction. Excisional debridement down to and including subcutaneous tissue with a number 5 mm dermal curette to the right posterior leg ulceration without incident. Predebridement measurement was 1.5 x 0.3 x 0.1 cm. Postdebridement measurement is 1.7 x 0.5 x 0.1 cm Excisional debridement down to including subcutaneous tissue with a number 5 mm dermal curette to the right Achilles tendon ulceration without incident. Predebridement measurement was 0.3 x 0.6 x 0.1 cm. Postdebridement measurement is 0.5 x 0.8 x 0.1 cm. The right lower extremities are clean and patted dry. Hydrogel was applied to the full-thickness wounds covered with dry sterile dressing and compression wrap. Patient will perform daily dressing changes as ordered. Educate the patient to remove the shoe that is causing bruising to her right lower extremity and to place a surgical shoe on order to get a backless shoe which I prefer. She was understanding of this. Follow-up at the wound care center with Dr. Sylvester in 2 week. (2) Non-pressure chronic ulcer of right heel and midfoot with fat layer exposed: CODE(S): L97.412 - Non-pressure chronic ulcer of right heel and midfoot with fat layer exposed
== END 2024-08-18 23:59 | disposition home or self-care (01) ==
LOC: WC 12:15
PROVIDERS: PCP Family Medicine; Referring Provider Physician Assistant; Visit Provider Podiatrist Foot & Ankle Surgery
DX: L97.412 Non-pressure chronic ulcer of right heel and midfoot with fat layer exposed (principal); L97.212 Non-pressure chronic ulcer of right calf with fat layer exposed; Z79.01 Long term (current) use of anticoagulants; Z79.899 Other long term (current) drug therapy
CPT/HCPCS: 11042

== ENCOUNTER 2024-09-17 08:45 | Outpatient (RCR) | payer MEDICARE, SELFPAY ==
[2024-08-19 00:48] VITALS: BP 164/59; PULSE 69; RESP 18; TEMP 36.1
[2024-08-27 12:07] VITALS: BP 147/57; PULSE 68; RESP 18; TEMP 36.6
--- NOTE | 2024-08-27 14:37 | PN.PCM_ITS ---
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 She has been doing dressing changes. There is improvement to the wound. No drainage sign of infection Progress of Wound: Stable right lower extremity wounds. No sign of infection. Subjective Subjective Ms Fox is 83-year-old female presented clinic today follow-up evaluation of full-thickness wound to the right posterior leg. Patient states there is improv ement to the full-thickness wound to her Achilles tendon but evidence of a bigger wound to the calf area right lower extremity. She denies any drainage or pain. Denies trauma. Denies constitutional symptoms. No other pedal complaints at this time. Objective Data Objective Data Vital Signs: Vital Signs Temp Pulse Resp BP O2 Del Method 97.8 F 68 18 147/57 H Room Air 08/27/24 12:07 08/27/24 12:07 08/27/24 12:07 08/27/24 12:07 08/27/24 12:07 Oxygen Delivery Method Room Air Physical Exam Narrative Vascular: DP and PT pulses are palpable to bilateral extremity. CFT is brisk. Nonpitting edema appreciated to bilateral lower extremity. No erythema. Skin temperature great is warm to warm from proximal ankles to distal digit bilateral.Evidence of ecchymosis appreciated to the right posterior calf and Achilles tendon secondary to shoe gear. Neurological: Light touch intact. Patient does respond to painful stimuli. Dermatological: Full-thickness ulceration to the right posterior leg measuring with a 2.4 x 1.3 x 0.2 cm. Right posterior leg wound is granular nature. No sign of infection. Right Achilles area full-thickness wound is now healed. Excisional debridement down to and including subcutaneous tissue with a number 5 mm dermal curette to the right posterior leg ulceration without incident. Predebridement measurement was 2.2 x 1.0 x 0.1 cm. Postdebridement measurement is 2.4 x 1.3 x 0.2 cm. Musculoskeletal: Mild pain on palpation to both full-thickness ulceration. No pain with calf compression. Debridement Note Debridement Note Debridement Free Text: Excisional debridement down to and including subcutaneous tissue with a number 5 mm dermal curette to the right posterior leg ulceration without incident. Predebridement measurement was 2.2 x 1.0 x 0.1 cm. Postdebridement measurement is 2.4 x 1.3 x 0.2 cm. Post-Debridement Measurements and Additional Note: Post-Debridement Measurements/Treatment [facility] Nurse 1 - General Ulcer Assessment Start: 08/27/24 12:07 Freq: Status: Active Protocol: STACIA Activity Type Activity Date Activity User E-sign Co-sign Detail Recorded Client Recorded Date Recorded By Document 08/27/24 12:07 [place] [id number] 08/27/24 12:20 [place] 08/27/24 12:07 - Today's Visit Information Type of service Follow-up Visit (Physician/PIZZA COOK ) Arrival Mode Ambulatory, Walker Accompanied by self Patient Identification Verified (Name & Yes ) Safety Precautions Fall Prevention Vital Signs Temperature (97.8 F-99.1 F) 97.8 F Temperature Source Temporal Pulse Rate (60-100) 68 Pulse Location Monitor Respiratory Rate (12-18) 18 Respiratory rate source Observation Oxygen Delivery Method Room Air Blood Pressure (90/60-120/80) 147/57 H Blood Pressure Mean (mm Hg) 87 Source Monitor Position Sitting Blood Pressure Location Right Arm History Since Last Visit- (Skip if this is Patient's initial visit) Has dressing in place as prescribed Yes Has compression in place as prescribed Yes Has offloadiing in place as prescribed Yes Experienced any changes in pain level or Yes management Left Footwear Regular Shoe Right Footwear Regular Shoe Pain Scale: 0-10 Numeric Is Patient Pain Free? Yes [facility] Nurse 1 - General Ulcer Measurement Start: 08/27/24 12:07 Freq: Status: Active Protocol: Activity Type Activity Date Activity User E-sign Co-sign Detail Recorded Client Recorded Date Recorded By Document 08/27/24 12:07 [place] [id number] 08/27/24 12:20 [place] 08/27/24 12:07 [facility] Nurse 1 #12 R ACHILLES -Current Size (cm) - Length 0.1 -Current Size (cm) - Width 0.1 -Current Size (cm) - Depth 0.1 -Total Square Cm 0.01 -Photo Taken No -Tunneling No -Undermining/Tunneling No -Circular Undermining No -Exudate Amt Small -Exudate Type Serosanguineous -Wound Margin Flat & Intact -Granulation Amt Large (67-100%) -Granulation Quality Pale,[place] -Necrosis Amt Small (1-33%) -Necrotic Tissue Type Adherent Slough -Texture (Maryann-wound Skin Appearance) Assessed -Moisture (Maryann-wound Skin Appearance) Assessed -Color (Maryann-wound Skin Appearance) Assessed -Temperature (Maryann-wound Skin No Abnormality Appearance) (Pt Warm) -Tenderness on Palpation (Maryann-wound No Skin Appearance) -Ulcer Cleansing Soap and Water -Foul Odor after Cleansing No -Anesthetic Used 5% Lidocaine Gel #10 R SUP POST CALF -Current Size (cm) - Length 3 -Current Size (cm) - Width 1.0 -Current Size (cm) - Depth 0.1 -Total Square Cm 3.0 -Photo Taken No -Tunneling No -Undermining/Tunneling No -Circular Undermining No -Exudate Amt Medium -Exudate Type Serosanguineous -Wound Margin Flat & Intact -Granulation Amt Medium (34-66%) -Granulation Quality Pale,[place] -Necrosis Amt Medium (34-66%) -Necrotic Tissue Type Adherent Slough -Texture (Maryann-wound Skin Appearance) Assessed -Moisture (Maryann-wound Skin Appearance) Assessed -Color (Maryann-wound Skin Appearance) Assessed -Temperature (Maryann-wound Skin No Abnormality Appearance) (Pt Warm) -Tenderness on Palpation (Maryann-wound No Skin Appearance) -Ulcer Cleansing Soap and Water -Foul Odor after Cleansing No -Anesthetic Used 5% Lidocaine Gel WC - Nurse 2 - General Ulcer CM Notes Start: 08/27/24 12:07 Freq: Status: Active Protocol: Activity Type Activity Date Activity User E-sign Co-sign Detail Recorded Client Recorded Date Recorded By Document 08/27/24 12:41 [facility] [id number] 08/27/24 12:46 [facility] 08/27/24 12:41 Wound Center Nurse 2 #12 R ACHILLES -Time 12:41 -Post Debridement (cm) - Length 0 -Post Debridement (cm) - Width 0 -Post Debridement (cm) - Depth 0 -Total Square (Post) (cm) 0 -Area of Debridement (cm) - Length 0 -Area of Debridement (cm) - Width 0 -Total Square (Area) (cm) 0 -Wound/Ulcer Outcome Healed- Epithelialized #10 R SUP POST CALF -Time 12:45 -Correct Patient Yes -Correct Side, Site, Position Yes -Correct Procedure Yes -Procedure Performed Yes -Type of Procedure Debridement -Clinical Debridement Subcutaneous -Tissue Removed Subcutaneous -Post Debridement (cm) - Length 2.4 -Post Debridement (cm) - Width 1.3 -Post Debridement (cm) - Depth 0.2 -Total Square (Post) (cm) 3.12 -Area of Debridement (cm) - Length 2.4 -Area of Debridement (cm) - Width 1.3 -Total Square (Area) (cm) 3.12 -Tunneling No -Undermining/Tunneling No -Circular Undermining No -Wound/Ulcer Outcome Not Healed -Ulcer Cleansing Rinsed/ Irrigated with Saline -Foul Odor after Cleansing No -Bioengineered Tissue No -Bleeding Controlled with Pressure -Treatment Response Procedure Tolerated Well -Debridement - Subq, 1st 20sq cm Yes Pain Scale: 0-10 Numeric Is Patient Pain Free? Yes - Nurse 3 - General Ulcer D/C NN Start: 08/27/24 12:07 Freq: Status: Active Protocol: Activity Type Activity Date Activity User E-sign Co-sign Detail Recorded Client Recorded Date Recorded By Document 08/27/24 13:11 [id number] 08/27/24 13:13 08/27/24 13:11 [facility] Nurse 3 #12 R ACHILLES -Ulcer Cleansing Rinsed/ Irrigated with Saline -Primary Dressing Applied C Hydrogel -Primary Dressing Covered/Secured with Dry Gauze,Dry Gauze & Roll Gauze,Secured with Tape -Hydrogel 1 #10 R SUP POST CALF -Other Dressing hydrogel -Primary Dressing Covered/Secured with Dry Gauze,Dry Gauze & Roll Gauze,Secured with Tape BLE -Other 2 aces per leg bilaterally Treatment Response Procedure Tolerated Well Pain Scale: 0-10 Numeric Is Patient Pain Free? Yes - Visit Discharge Discharge Condition Stable Ambulatory Status Ambulatory, Walker Transportation Private Auto Medication Reconcilliation completed & No provided to patient/care provider Clinical Summary of Care Provided Yes Assessment/Plan Assessment/Plan (1) Non-pressure chronic ulcer of other part of right lower leg with fat layer exposed: CODE(S): L97.812 - Non-pressure chronic ulcer of other part of right lower leg with fat layer exposed PLAN: Patient was examined and evaluated. All findings were discussed with the patient. All questions were answered to the patient's satisfaction. Excisional debridement down to and including subcutaneous tissue with a number 5 mm dermal curette to the right posterior leg ulceration without incident. Predebridement measurement was 2.2 x 1.0 x 0.1 cm. Postdebridement measurement is 2.4 x 1.3 x 0.2 cm. The right lower extremities are clean and patted dry. Hydrogel was applied to the full-thickness wound covered with dry sterile dressing and compression wrap. Patient will perform daily dressing changes as ordered. Educated the patient continue to use the backless shoes to help decrease pressure to the Achilles tendon area. Will begin ordering amniotic skin graft substitute for the patient's insurance as she is showing evidence of a nonhealing wound to the right calf area. Follow-up at the wound care center with Dr. Sylvester in 1 week.
[2024-09-03 12:46] VITALS: BP 167/81; PULSE 79; RESP 18; TEMP 35.9
--- NOTE | 2024-09-03 14:03 | PN.PCM_ITS ---
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 She has been doing dressing changes. There is improvement to the wound. No drainage sign of infection Progress of Wound: Stable right lower extremity wounds. No sign of infection. Subjective Subjective Ms Fox is 83-year-old female presented clinic today follow-up evaluation of full-thickness wound to the right posterior leg. The patient's Achilles tendon wound is now healed. She is still waiting on approval for hamulus skin graft substitutes. She denies pain to the right leg. Denies trauma. Denies constitutional symptoms. No other pedal complaints at this time. Objective Data Objective Data Vital Signs: Vital Signs Temp Pulse Resp BP O2 Del Method 96.7 F L 79 18 167/81 H Room Air 09/03/24 12:46 09/03/24 12:46 09/03/24 12:46 09/03/24 12:46 08/27/24 12:07 Oxygen Delivery Method Room Air Physical Exam Narrative Vascular: DP and PT pulses are palpable to bilateral extremity. CFT is brisk. Nonpitting edema appreciated to bilateral lower extremity. No erythema. Skin temperature great is warm to warm from proximal ankles to distal digit bilateral. Neurological: Light touch intact. Patient does respond to painful stimuli. Dermatological: Full-thickness ulceration to the right posterior leg measuring with a 2.0 x 1.0 x 0.2 cm. Right posterior leg wound is granular nature. No sign of infection. Excisional debridement down to and including subcutaneous tissue with a number 5 mm dermal curette to the right posterior leg ulceration without incident. Predebridement measurement was 1.8 x 0.8 x 0.1 cm. Postdebridement measurement is 2.0 x 1.0 x 0.2 cm. Musculoskeletal: Mild pain on palpation to both full-thickness ulceration. No pain with calf compression. Debridement Note Debridement Note Debridement Free Text: Excisional debridement down to and including subcutaneous tissue with a number 5 mm dermal curette to the right posterior leg ulceration without incident. Predebridement measurement was 1.8 x 0.8 x 0.1 cm. Postdebridement measurement is 2.0 x 1.0 x 0.2 cm. Post-Debridement Measurements and Additional Note: Post-Debridement Measurements/Treatment - Nurse 1 - General Ulcer Assessment Start: 08/27/24 12:07 Freq: Status: Active Protocol: STACIA Activity Type Activity Date Activity User E-sign Co-sign Detail Recorded Client Recorded Date Recorded By Document 08/27/24 12:07 MT [id number] 08/27/24 12:20 MT Document 09/03/24 12:46 RB [id number] 09/03/24 12:48 RB 08/27/24 09/03/24 12:07 12:46 WC - Today's Visit Information Type of service Follow-up Visit Follow-up Visit (Physician/TIMBER CUTTER (Physician/TIMBER CUTTER ) ) Arrival Mode Ambulatory, Ambulatory, Walker Walker Transfer Assistance None Accompanied by self Patient Identification Verified (Name & Yes Yes ) Patient Requires Transmission-Based No Precautions Safety Precautions Fall Prevention Vital Signs Temperature (97.8 F-99.1 F) 97.8 F 96.7 F L Temperature Source Temporal Temporal Pulse Rate (60-100) 68 79 Pulse Location Monitor Monitor Respiratory Rate (12-18) 18 18 Respiratory rate source Observation Observation Oxygen Delivery Method Room Air Blood Pressure (90/60-120/80) 147/57 H 167/81 H Blood Pressure Mean (mm Hg) 87 109 Source Monitor Monitor Position Sitting Semi-Fowlers Blood Pressure Location Right Arm Left Arm History Since Last Visit- (Skip if this is Patient's initial visit) Have you changed medications since your No last visit? Any new allergies or adverse reactions No Had a fall/change in ADL's that may No increase risk of falls Signs or symptoms of abuse and/or No neglect since last visit Have you been in the hospital since your No last visit? Has dressing in place as prescribed Yes Yes Has compression in place as prescribed Yes Yes Has offloadiing in place as prescribed Yes N/A Experienced any changes in pain level or Yes No management Left Footwear Regular Shoe Regular Shoe Right Footwear Regular Shoe Surgical Shoe with pressure relief insole Pain Scale: 0-10 Numeric Is Patient Pain Free? Yes Yes - Nurse 1 - General Ulcer Measurement Start: 08/27/24 12:07 Freq: Status: Active Protocol: Activity Type Activity Date Activity User E-sign Co-sign Detail Recorded Client Recorded Date Recorded By Document 08/27/24 12:07 MT [id number] 08/27/24 12:20 MT Document 09/03/24 12:46 RB [id number] 09/03/24 12:48 RB 08/27/24 09/03/24 12:07 12:46 Wound Center Nurse 1 #12 R ACHILLES -Current Size (cm) - Length 0.1 -Current Size (cm) - Width 0.1 -Current Size (cm) - Depth 0.1 -Total Square Cm 0.01 -Photo Taken No -Tunneling No -Undermining/Tunneling No -Circular Undermining No -Exudate Amt Small -Exudate Type Serosanguineous -Wound Margin Flat & Intact -Granulation Amt Large (67-100%) -Granulation Quality Pale,[place] -Necrosis Amt Small (1-33%) -Necrotic Tissue Type Adherent Slough -Texture (Maryann-wound Skin Appearance) Assessed -Moisture (Maryann-wound Skin Appearance) Assessed -Color (Maryann-wound Skin Appearance) Assessed -Temperature (Maryann-wound Skin No Abnormality Appearance) (Pt Warm) -Tenderness on Palpation (Maryann-wound No Skin Appearance) -Ulcer Cleansing Soap and Water -Foul Odor after Cleansing No -Anesthetic Used 5% Lidocaine Gel #10 R SUP POST CALF -Combined with other wound No -Current Size (cm) - Length 3 2 -Current Size (cm) - Width 1.0 1 -Current Size (cm) - Depth 0.1 0.1 -Total Square Cm 3.0 2 -Photo Taken No Yes -Tunneling No No -Undermining/Tunneling No No -Circular Undermining No No -Exudate Amt Medium Medium -Exudate Type Serosanguineous Serosanguineous -Wound Margin Flat & Intact Distinct, Outline Attached -Granulation Amt Medium (34-66%) Large (67-100%) -Granulation Quality Pale,[place],Red -Slough/Fibrin Yes -Necrosis Amt Medium (34-66%) Small (1-33%) -Necrotic Tissue Type Adherent Slough Adherent Slough -Structure Exposed N/A -Texture (Maryann-wound Skin Appearance) Assessed Assessed -Moisture (Maryann-wound Skin Appearance) Assessed Assessed -Color (Maryann-wound Skin Appearance) Assessed Assessed -Temperature (Maryann-wound Skin No Abnormality No Abnormality Appearance) (Pt Warm) (Pt Warm) -Tenderness on Palpation (Maryann-wound No No Skin Appearance) -Ulcer Cleansing Soap and Water Wound Cleanser -Foul Odor after Cleansing No No -Anesthetic Used 5% Lidocaine 5% Lidocaine Gel Gel Lower Limb Edema Present Yes Right Calf (cm) 43 Right Ankle (cm) 21 - Nurse 2 - General Ulcer CM Notes Start: 08/27/24 12:07 Freq: Status: Active Protocol: Activity Type Activity Date Activity User E-sign Co-sign Detail Recorded Client Recorded Date Recorded By Document 08/27/24 12:41 [facility] [id number] 08/27/24 12:46 [facility] Document 09/03/24 12:58 [id number] 09/03/24 13:00 08/27/24 09/03/24 12:41 12:58 Wound Center Nurse 2 #12 R ACHILLES -Time 12:41 -Post Debridement (cm) - Length 0 -Post Debridement (cm) - Width 0 -Post Debridement (cm) - Depth 0 -Total Square (Post) (cm) 0 -Area of Debridement (cm) - Length 0 -Area of Debridement (cm) - Width 0 -Total Square (Area) (cm) 0 -Wound/Ulcer Outcome Healed- Epithelialized #10 R SUP POST CALF -Time 12:45 12:59 -Correct Patient Yes Yes -Correct Side, Site, Position Yes Yes -Correct Procedure Yes Yes -Procedure Performed Yes Yes -Type of Procedure Debridement Debridement -Clinical Debridement Subcutaneous Subcutaneous -Tissue Removed Subcutaneous Subcutaneous -Post Debridement (cm) - Length 2.4 2 -Post Debridement (cm) - Width 1.3 1 -Post Debridement (cm) - Depth 0.2 0.2 -Total Square (Post) (cm) 3.12 2 -Area of Debridement (cm) - Length 2.4 2 -Area of Debridement (cm) - Width 1.3 1 -Total Square (Area) (cm) 3.12 2 -Tunneling No No -Undermining/Tunneling No No -Circular Undermining No No -Wound/Ulcer Outcome Not Healed Not Healed -Ulcer Cleansing Rinsed/ Rinsed/ Irrigated with Irrigated with Saline Saline -Foul Odor after Cleansing No No -Bioengineered Tissue No No -Bleeding Controlled with Pressure Pressure -Treatment Response Procedure Procedure Tolerated Well Tolerated Well -Offloading No -Debridement - Subq, 1st 20sq cm Yes Yes Pain Scale: 0-10 Numeric Is Patient Pain Free? Yes Yes - Nurse 3 - General Ulcer D/C NN Start: 08/27/24 12:07 Freq: Status: Active Protocol: Activity Type Activity Date Activity User E-sign Co-sign Detail Recorded Client Recorded Date Recorded By Document 08/27/24 13:11 RB [id number] 08/27/24 13:13 RB Document 09/03/24 13:17 CP [id number] 09/03/24 13:20 CP 08/27/24 09/03/24 13:11 13:17 Wound Care Center Nurse 3 #12 R ACHILLES -Ulcer Cleansing Rinsed/ Irrigated with Saline -Primary Dressing Applied C Hydrogel -Primary Dressing Covered/Secured with Dry Gauze,Dry Gauze & Roll Gauze,Secured with Tape -Hydrogel 1 #10 R SUP POST CALF -Ulcer Cleansing Rinsed/ Irrigated with Saline -Primary Dressing Applied C Hydrogel -Other Dressing hydrogel -Primary Dressing Covered/Secured with Dry Gauze,Dry Dry Gauze & Gauze & Roll Roll Gauze, Gauze,Secured Secured with with Tape Tape -Hydrogel 0 BLE -Other 2 aces per leg bilaterally Treatment Response Procedure Tolerated Well Pain Scale: 0-10 Numeric Is Patient Pain Free? Yes Yes WC - Visit Discharge Discharge Condition Stable Stable Ambulatory Status Ambulatory, Ambulatory, Walker Walker Transportation Private Auto Medication Reconcilliation completed & No provided to patient/care provider Clinical Summary of Care Provided Yes Yes Facility Type [facility] Orders Sent Yes Assessment/Plan Assessment/Plan (1) Non-pressure chronic ulcer of other part of right lower leg with fat layer exposed: CODE(S): L97.812 - Non-pressure chronic ulcer of other part of right lower leg with fat layer exposed PLAN: Patient was examined and evaluated. All findings were discussed with the patient. All questions were answered to the patient's satisfaction. Excisional debridement down to and including subcutaneous tissue with a number 5 mm dermal curette to the right posterior leg ulceration without incident. Predebridement measurement was 1.8 x 0.8 x 0.1 cm. Postdebridement measurement is 2.0 x 1.0 x 0.2 cm. The right lower extremities are clean and patted dry. Hydrogel was applied to the full-thickness wound covered with dry sterile dressing and compression wrap. Patient will perform daily dressing changes as ordered. Educated the patient continue to use the backless shoes to help decrease pressure to the Achilles tendon area. Still waiting on insurance approval for amniotic skin graft substitute authorization. Follow-up at the wound care center with Dr. Sylvester in 1 week.
--- NOTE | 2024-09-04 09:53 | WC ---
PHOTO 09/03/24 RIGHT LATERAL
[2024-09-10 11:39] VITALS: BP 156/67; PULSE 56; RESP 16; TEMP 36.4
--- NOTE | 2024-09-10 12:39 | PCM.WC.PN ---
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 She has been doing dressing changes. There is improvement to the wound. No drainage sign of infection Progress of Wound: Stable right lower extremity wounds. No sign of infection. Subjective Subjective Ms Fox is a 83-year-old female presenting to wound care center today follow-up evaluation of full-thickness wounds to the right calf area. Patient is here today to have the amnion skin graft substitute applied as she has been approved through insurance. She denies trauma. Denies constitutional symptoms. She has not been doing regular dressing changes per our orders. No other pedal complaints at this time. Objective Data Objective Data Vital Signs: Vital Signs Temp Pulse Resp BP O2 Del Method 97.6 F L 56 L 16 156/67 H Room Air 09/10/24 11:39 09/10/24 11:39 09/10/24 11:39 09/10/24 11:39 08/27/24 12:07 Oxygen Delivery Method Room Air Physical Exam Narrative Vascular: DP and PT pulses are palpable to bilateral extremity. CFT is brisk. Nonpitting edema appreciated to bilateral lower extremity. No erythema. Skin temperature great is warm to warm from proximal ankles to distal digit bilateral. Neurological: Light touch intact. Patient does respond to painful stimuli. Dermatological: Full-thickness ulceration to the right posterior leg measuring with a 1.7 x 1.0 x 0.1 cm. right posterior leg wound is granular nature. No sign of infection. Excisional debridement down to and including subcutaneous tissue with a number 5 mm dermal curette to the right posterior leg ulceration without incident. Predebridement measurement was 1.5 x 0.9 x 0.1 cm. Postdebridement measurement is 1.7 x 1.0 x 0.1 cm. EpiFix 18 mm was applied to the [Right / Left] full-thickness ulceration with 100% use. First application. The graft site was free and clear of any infection. The wound/skin graft substitute was dressed with nonadherent bandage secured in place with Steri-Strips followed by bolster dressing as well as a double layer Tubigrip. Musculoskeletal: Mild pain on palpation to both full-thickness ulceration. No pain with calf compression. Debridement Note Debridement Note Debridement Free Text: Excisional debridement down to and including subcutaneous tissue with a number 5 mm dermal curette to the right posterior leg ulceration without incident. Predebridement measurement was 1.5 x 0.9 x 0.1 cm. Postdebridement measurement is 1.7 x 1.0 x 0.1 cm. EpiFix 18 mm was applied to the [Right / Left] full-thickness ulceration with 100% use. First application. The graft site was free and clear of any infection. The wound/skin graft substitute was dressed with nonadherent bandage secured in place with Steri-Strips followed by bolster dressing as well as a double layer Tubigrip. Post-Debridement Measurements and Additional Note: Post-Debridement Measurements/Treatment - Nurse 1 - General Ulcer Assessment Start: 08/27/24 12:07 Freq: Status: Active Protocol: STACIA Activity Type Activity Date Activity User E-sign Co-sign Detail Recorded Client Recorded Date Recorded By Document 08/27/24 12:07 PR [id number] 08/27/24 12:20 MT Document 09/03/24 12:46 RB [id number] 09/03/24 12:48 RB Document 09/10/24 11:39 CP [id number] 09/10/24 11:50 CP 08/27/24 09/03/24 09/10/24 12:07 12:46 11:39 - Today's Visit Information Type of service Follow-up Visit Follow-up Visit Follow-up Visit (Physician/SUPPLY TECHNICIAN (Physician/SUPPLY TECHNICIAN (Physician/SUPPLY TECHNICIAN ) ) ) Arrival Mode Ambulatory, Ambulatory, Ambulatory, Walker Walker Walker Transfer Assistance None Accompanied by self Patient Identification Verified (Name & Yes Yes Yes ) Patient Requires Transmission-Based No Precautions Safety Precautions Fall Prevention Vital Signs Temperature (97.8 F-99.1 F) 97.8 F 96.7 F L 97.6 F L Temperature Source Temporal Temporal Temporal Pulse Rate (60-100) 68 79 56 L Pulse Location Monitor Monitor Monitor Respiratory Rate (12-18) 18 18 16 Respiratory rate source Observation Observation Observation Oxygen Delivery Method Room Air Blood Pressure (90/60-120/80) 147/57 H 167/81 H 156/67 H Blood Pressure Mean (mm Hg) 87 109 96 Source Monitor Monitor Monitor Position Sitting Semi-Fowlers Sitting Blood Pressure Location Right Arm Left Arm Left Arm History Since Last Visit- (Skip if this is Patient's initial visit) Have you changed medications since your No No last visit? Any new allergies or adverse reactions No No Had a fall/change in ADL's that may No Yes increase risk of falls Signs or symptoms of abuse and/or No No neglect since last visit Have you been in the hospital since your No No last visit? Has dressing in place as prescribed Yes Yes No Has compression in place as prescribed Yes Yes No Has offloadiing in place as prescribed Yes N/A Yes Experienced any changes in pain level or Yes No No management Left Footwear Regular Shoe Regular Shoe Right Footwear Regular Shoe Surgical Shoe with pressure relief insole Pain Scale: 0-10 Numeric Is Patient Pain Free? Yes Yes Yes WC - Nurse 1 - General Ulcer Measurement Start: 08/27/24 12:07 Freq: Status: Active Protocol: Activity Type Activity Date Activity User E-sign Co-sign Detail Recorded Client Recorded Date Recorded By Document 08/27/24 12:07 PR [id number] 08/27/24 12:20 PR Document 09/03/24 12:46 RB [id number] 09/03/24 12:48 RB Document 09/10/24 11:39 CP [id number] 09/10/24 11:50 CP 08/27/24 09/03/24 09/10/24 12:07 12:46 11:39 Wound Center Nurse 1 #12 R ACHILLES -Current Size (cm) - Length 0.1 -Current Size (cm) - Width 0.1 -Current Size (cm) - Depth 0.1 -Total Square Cm 0.01 -Photo Taken No -Tunneling No -Undermining/Tunneling No -Circular Undermining No -Exudate Amt Small -Exudate Type Serosanguineous -Wound Margin Flat & Intact -Granulation Amt Large (67-100%) -Granulation Quality Pale,Mccrory -Necrosis Amt Small (1-33%) -Necrotic Tissue Type Adherent Slough -Texture (Maryann-wound Skin Appearance) Assessed -Moisture (Maryann-wound Skin Appearance) Assessed -Color (Maryann-wound Skin Appearance) Assessed -Temperature (Maryann-wound Skin No Abnormality Appearance) (Pt Warm) -Tenderness on Palpation (Maryann-wound No Skin Appearance) -Ulcer Cleansing Soap and Water -Foul Odor after Cleansing No -Anesthetic Used 5% Lidocaine Gel #10 R SUP POST CALF -Combined with other wound No -Current Size (cm) - Length 3 2 1 -Current Size (cm) - Width 1.0 1 0.4 -Current Size (cm) - Depth 0.1 0.1 0.2 -Total Square Cm 3.0 2 0.4 -Date of Last Picture (Recall this 09/10/24 field) -Photo Taken No Yes Yes -Epithelialization None Present -Tunneling No No -Undermining/Tunneling No No No -Circular Undermining No No -Exudate Amt Medium Medium None Present -Exudate Type Serosanguineous Serosanguineous -Wound Margin Flat & Intact Distinct, Flat & Intact Outline Attached -Granulation Amt Medium (34-66%) Large (67-100%) Large (67-100%) -Granulation Quality Pale,Mccrory Mccrory,Red Red -Slough/Fibrin Yes No -Necrosis Amt Medium (34-66%) Small (1-33%) -Necrotic Tissue Type Adherent Slough Adherent Slough -Structure Exposed N/A N/A -Texture (Maryann-wound Skin Appearance) Assessed Assessed No Abnormality -Moisture (Maryann-wound Skin Appearance) Assessed Assessed No Abnormality -Color (Maryann-wound Skin Appearance) Assessed Assessed No Abnormality -Temperature (Maryann-wound Skin No Abnormality No Abnormality Appearance) (Pt Warm) (Pt Warm) -Tenderness on Palpation (Maryann-wound No No Skin Appearance) -Ulcer Cleansing Soap and Water Wound Cleanser Rinsed/ Irrigated with Saline -Foul Odor after Cleansing No No No -Anesthetic Used 5% Lidocaine 5% Lidocaine 5% Lidocaine Gel Gel Gel Lower Limb Edema Present Yes Right Calf (cm) 43 35.5 Right Ankle (cm) 21 22 WC - Nurse 2 - General Ulcer CM Notes Start: 08/27/24 12:07 Freq: Status: Active Protocol: Activity Type Activity Date Activity User E-sign Co-sign Detail Recorded Client Recorded Date Recorded By Document 08/27/24 12:41 [facility] [id number] 08/27/24 12:46 [facility] Document 09/03/24 12:58 [id number] 09/03/24 13:00 Document 09/10/24 12:12 KATELYNN [id number] 09/10/24 12:14 08/27/24 09/03/2409/10/25 12:41 12:58 12:12 Wound Center Nurse 2 #12 R ACHILLES -Time 12:41 -Post Debridement (cm) - Length 0 -Post Debridement (cm) - Width 0 -Post Debridement (cm) - Depth 0 -Total Square (Post) (cm) 0 -Area of Debridement (cm) - Length 0 -Area of Debridement (cm) - Width 0 -Total Square (Area) (cm) 0 -Wound/Ulcer Outcome Healed- Epithelialized #10 R SUP POST CALF -Time 12:45 12:59 12:12 -Correct Patient Yes Yes Yes -Correct Side, Site, Position Yes Yes Yes -Correct Procedure Yes Yes Yes -Procedure Performed Yes Yes Yes -Type of Procedure Debridement Debridement Debridement -Clinical Debridement Subcutaneous Subcutaneous Subcutaneous -Tissue Removed Subcutaneous Subcutaneous Subcutaneous -Post Debridement (cm) - Length 2.4 2 1.7 -Post Debridement (cm) - Width 1.3 1 1.0 -Post Debridement (cm) - Depth 0.2 0.2 0.1 -Total Square (Post) (cm) 3.12 2 1.70 -Area of Debridement (cm) - Length 2.4 2 1.7 -Area of Debridement (cm) - Width 1.3 1 1.0 -Total Square (Area) (cm) 3.12 2 1.70 -Tunneling No No No -Undermining/Tunneling No No No -Circular Undermining No No No -Wound/Ulcer Outcome Not Healed Not Healed Not Healed -Ulcer Cleansing Rinsed/ Rinsed/ Rinsed/ Irrigated with Irrigated with Irrigated with Saline Saline Saline -Foul Odor after Cleansing No No No -Bioengineered Tissue No No Yes -Type of Bioengineered Tissue Epifix 18mm Disc -Expiration Date 03/21/29 -Product Lot Number [id number] -Percent Used 100 -Lot number of Saline Used [id number] -Bleeding Controlled with Pressure Pressure Pressure -Treatment Response Procedure Procedure Procedure Tolerated Well Tolerated Well Tolerated Well -Offloading No No -Debridement - Subq, 1st 20sq cm Yes Yes No -Apply Skin Sub - 1st 25 sq cm - Legs 1 -Epifix 18mm Disc Application 1-4 3 Pain Scale: 0-10 Numeric Is Patient Pain Free? Yes Yes Yes WC - Nurse 3 - General Ulcer D/C NN Start: 08/27/24 12:07 Freq: Status: Active Protocol: Activity Type Activity Date Activity User E-sign Co-sign Detail Recorded Client Recorded Date Recorded By Document 08/27/24 13:11 RB [id number] 08/27/24 13:13 RB Document 09/03/24 13:17 CP [id number] 09/03/24 13:20 CP Document 09/10/24 12:19 ML [id number] 09/10/24 12:20 ML 08/27/24 09/03/24 09/10/24 13:11 13:17 12:19 Wound Care Center Nurse 3 #12 R ACHILLES -Ulcer Cleansing Rinsed/ Irrigated with Saline -Primary Dressing Applied C Hydrogel -Primary Dressing Covered/Secured with Dry Gauze,Dry Gauze & Roll Gauze,Secured with Tape -Hydrogel 1 #10 R SUP POST CALF -Ulcer Cleansing Rinsed/ Irrigated with Saline -Primary Dressing Applied C Hydrogel -Other Dressing hydrogel -Primary Dressing Covered/Secured with Dry Gauze,Dry Dry Gauze & Dry Gauze & Gauze & Roll Roll Gauze, Roll Gauze, Gauze,Secured Secured with Secured with with Tape Tape Tape -Other Covering lola wrap -Hydrogel 0 BLE -Other 2 aces per leg bilaterally Treatment Response Procedure Tolerated Well Pain Scale: 0-10 Numeric Is Patient Pain Free? Yes Yes Yes WC - Visit Discharge Discharge Condition Stable Stable Ambulatory Status Ambulatory, Ambulatory, Walker Walker Transportation Private Auto Medication Reconcilliation completed & No provided to patient/care provider Clinical Summary of Care Provided Yes Yes Facility Type Skilled Nursing Care Facility Orders Sent Yes Assessment/Plan Assessment/Plan (1) Non-pressure chronic ulcer of other part of right lower leg with fat layer exposed: CODE(S): L97.812 - Non-pressure chronic ulcer of other part of right lower leg with fat layer exposed PLAN: Patient was examined and evaluated. All findings were discussed with the patient. All questions were answered to the patient's satisfaction. Excisional debridement down to and including subcutaneous tissue with a number 5 mm dermal curette to the right posterior leg ulceration without incident. Predebridement measurement was 1.5 x 0.9 x 0.1 cm. Postdebridement measurement is 1.7 x 1.0 x 0.1 cm. EpiFix 18 mm was applied to the [Right / Left] full-thickness ulceration with 100% use. First application. The graft site was free and clear of any infection. The wound/skin graft substitute was dressed with nonadherent bandage secured in place with Steri-Strips followed by bolster dressing as well as a double layer Tubigrip. Follow-up at the wound care center with Dr. Sylvester in 1 week.
--- NOTE | 2024-09-11 09:41 | WC ---
PHOTO 09/10/24 RIGHT SUP POST CALF
[2024-09-17 08:49] VITALS: BP 171/75; PULSE 75; RESP 15; TEMP 35.8
--- NOTE | 2024-09-17 13:43 | WC ---
PHOTO 09/17/24 RIGHT SUP POST OP CALF
--- NOTE | 2024-09-22 10:48 | PCM.WC.PN ---
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 She has been doing dressing changes. There is improvement to the wound. No drainage sign of infection Progress of Wound: Stable right lower extremity wounds. No sign of infection. Subjective Subjective Patient is a 83-year-old female presenting to the wound care center today for follow-up evaluation of right calf wound with amniotic skin graft substitute application. Patient has been doing well. She admits there is no drainage or pain to the right leg. She is wearing comfortable shoes. Denies trauma. Denies constitutional symptoms. No other pedal complaints at this time. Objective Data Objective Data Vital Signs: Vital Signs Temp Pulse Resp BP O2 Del Method 96.5 F L 75 15 171/75 H Room Air 09/17/24 08:49 09/17/24 08:49 09/17/24 08:49 09/17/24 08:49 09/17/24 08:49 Oxygen Delivery Method Room Air Physical Exam Narrative Vascular: DP and PT pulses are palpable to bilateral extremity. CFT is brisk. Nonpitting edema appreciated to bilateral lower extremity. No erythema. Skin temperature great is warm to warm from proximal ankles to distal digit bilateral. Neurological: Light touch intact. Patient does respond to painful stimuli. Dermatological: Full-thickness ulceration to the right posterior leg measuring with a 1.4 x 0.5 x 0.1 cm. right posterior leg wound is granular nature. No sign of infection. Excisional debridement down to and including subcutaneous tissue with a number 5 mm dermal curette to the right posterior leg ulceration without incident. Predebridement measurement was 1.3 x 0.3 x 0.1 cm. Postdebridement measurement is 1.4 x 0.5 x 0.1 cm. EpiFix 18 mm was applied to the right full-thickness ulceration with 100% use. Second application. The graft site was free and clear of any infection. The wound/skin graft substitute was dressed with nonadherent bandage secured in place with Steri-Strips followed by bolster dressing as well as a double layer Tubigrip. Musculoskeletal: Mild pain on palpation to both full-thickness ulceration. No pain with calf compression. Debridement Note Debridement Note Debridement Free Text: Excisional debridement down to and including subcutaneous tissue with a number 5 mm dermal curette to the right posterior leg ulceration without incident. Predebridement measurement was 1.3 x 0.3 x 0.1 cm. Postdebridement measurement is 1.4 x 0.5 x 0.1 cm. EpiFix 18 mm was applied to the right full-thickness ulceration with 100% use. Second application. The graft site was free and clear of any infection. The wound/skin graft substitute was dressed with nonadherent bandage secured in place with Steri-Strips followed by bolster dressing as well as a double layer Tubigrip. Assessment/Plan Assessment/Plan (1) Non-pressure chronic ulcer of other part of right lower leg with fat layer exposed: CODE(S): L97.812 - Non-pressure chronic ulcer of other part of right lower leg with fat layer exposed PLAN: Patient was examined and evaluated. All findings were discussed with the patient. All questions were answered to the patient's satisfaction. Excisional debridement down to and including subcutaneous tissue with a number 5 mm dermal curette to the right posterior leg ulceration without incident. Predebridement measurement was 1.3 x 0.3 x 0.1 cm. Postdebridement measurement is 1.4 x 0.5 x 0.1 cm. EpiFix 18 mm was applied to the right full-thickness ulceration with 100% use. Second application. The graft site was free and clear of any infection. The wound/skin graft substitute was dressed with nonadherent bandage secured in place with Steri-Strips followed by bolster dressing as well as a double layer Tubigrip. Follow-up at the wound care center with Dr. Sylvester in 1 week.
== END 2024-09-17 23:59 | disposition home or self-care (01) ==
LOC: WC 08:45
PROVIDERS: PCP Family Medicine; Referring Provider Physician Assistant; Visit Provider Podiatrist Foot & Ankle Surgery
DX: L97.212 Non-pressure chronic ulcer of right calf with fat layer exposed (principal); R60.0 Localized edema; Z79.01 Long term (current) use of anticoagulants; Z79.899 Other long term (current) drug therapy
CPT/HCPCS: 11042; 15271; Q4186

== ENCOUNTER 2024-10-15 08:30 | Outpatient (RCR) | payer MEDICARE, SELFPAY ==
[2024-09-18 00:17] VITALS: BP 171/75; PULSE 75; RESP 15; TEMP 35.8
[2024-09-24 13:00] VITALS: RESP 18
--- NOTE | 2024-09-24 13:16 | PCM.WC.PN ---
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 She has been doing dressing changes. There is improvement to the wound. No drainage sign of infection Progress of Wound: Stable healing wound right leg Subjective Subjective Ms Fox is 83-year-old female presented with her son today for follow-up evaluation of full-thickness wound to the right leg. Patient has been compliant with dressing but has left a clean dry and intact. She is wearing compression. She states great improvement to her wound. She is ambulatory only when walking. Otherwise she is sitting for long periods of time at her facility. Denies trauma. Denies skin breakdown. Denies constitutional symptoms. No other pedal complaints at this time. Objective Data Objective Data Vital Signs: Vital Signs Temp Pulse Resp BP O2 Del Method 96.5 F L 75 18 171/75 H Room Air 09/18/24 00:17 09/18/24 00:17 09/24/24 13:00 09/18/24 00:17 09/24/24 13:00 Oxygen Delivery Method Room Air Physical Exam Narrative Vascular: DP and PT pulses are palpable to bilateral extremity. CFT is brisk. Nonpitting edema appreciated to bilateral lower extremity. No erythema. Skin temperature great is warm to warm from proximal ankles to distal digit bilateral. Neurological: Light touch intact. Patient does respond to painful stimuli. Dermatological: Full-thickness wound to the right posterior leg/calf measuring 0.1 x 0.1 x 0.1 cm. No drainage or sign of infection. Musculoskeletal: No pain on palpation to both full-thickness ulceration. No pain with calf compression. Debridement Note Debridement Note Debridement Free Text: Excisional debridement down to and including subcutaneous tissue with a number 5 mm dermal curette to the right posterior leg ulceration without incident. Predebridement measurement was 1.3 x 0.3 x 0.1 cm. Postdebridement measurement is 1.4 x 0.5 x 0.1 cm. EpiFix 18 mm was applied to the right full-thickness ulceration with 100% use. Second application. The graft site was free and clear of any infection. The wound/skin graft substitute was dressed with nonadherent bandage secured in place with Steri-Strips followed by bolster dressing as well as a double layer Tubigrip. Post-Debridement Measurements and Additional Note: Post-Debridement Measurements/Treatment WC - Nurse 1 - General Ulcer Assessment Start: 09/24/24 12:59 Freq: Status: Active Protocol: STACIA Activity Type Activity Date Activity User E-sign Co-sign Detail Recorded Client Recorded Date Recorded By Document 09/24/24 13:00 FL [id number] 09/24/24 13:07 FL 09/24/24 13:00 - Today's Visit Information Arrival Mode Ambulatory, Walker Accompanied by self Patient Identification Verified (Name & Yes ) Safety Precautions Fall Prevention Vital Signs Temperature Source Temporal Pulse Location Monitor Respiratory Rate (12-18) 18 Respiratory rate source Observation Oxygen Delivery Method Room Air Source Monitor Position Sitting Blood Pressure Location Left Arm History Since Last Visit- (Skip if this is Patient's initial visit) Has dressing in place as prescribed Yes Has compression in place as prescribed Yes Has offloadiing in place as prescribed Yes Experienced any changes in pain level or Yes management Left Footwear Regular Shoe Right Footwear Regular Shoe Pain Scale: 0-10 Numeric Is Patient Pain Free? Yes - Nurse 1 - General Ulcer Measurement Start: 09/24/24 12:59 Freq: Status: Active Protocol: Activity Type Activity Date Activity User E-sign Co-sign Detail Recorded Client Recorded Date Recorded By Document 09/24/24 13:00 FL [id number] 09/24/24 13:07 FL 09/24/24 13:00 Wound Center Nurse 1 #10 R SUP POST CALF -Current Size (cm) - Length 0.1 -Current Size (cm) - Width 0.1 -Current Size (cm) - Depth 0.1 -Total Square Cm 0.01 -Date of Last Picture (Recall this 09/24/24 field) -Photo Taken Yes -Epithelialization Large 67-100% -Tunneling No -Undermining/Tunneling No -Circular Undermining No -Exudate Amt None Present -Wound Margin Flat & Intact -Texture (Maryann-wound Skin Appearance) Assessed -Moisture (Maryann-wound Skin Appearance) Assessed -Color (Maryann-wound Skin Appearance) Assessed -Temperature (Maryann-wound Skin No Abnormality Appearance) (Pt Warm) -Tenderness on Palpation (Maryann-wound No Skin Appearance) -Ulcer Cleansing Soap and Water -Foul Odor after Cleansing No -Anesthetic Used 5% Lidocaine Gel WC - Nurse 2 - General Ulcer CM Notes Start: 09/24/24 12:59 Freq: Status: Active Protocol: Activity Type Activity Date Activity User E-sign Co-sign Detail Recorded Client Recorded Date Recorded By Document 09/24/24 13:13 KATELYNN [id number] 09/24/24 13:14 KATELYNN 09/24/24 13:13 Wound Center Nurse 2 -Correct Patient Yes -Correct Side, Site, Position No -Correct Procedure No -Procedure Performed No -Post Debridement (cm) - Length 0.1 -Post Debridement (cm) - Width 0.1 -Post Debridement (cm) - Depth 0.1 -Total Square (Post) (cm) 0.01 -Area of Debridement (cm) - Length 0.1 -Area of Debridement (cm) - Width 0.1 -Total Square (Area) (cm) 0.01 -Wound/Ulcer Outcome Not Healed Pain Scale: 0-10 Numeric Is Patient Pain Free? Yes Assessment/Plan Assessment/Plan (1) Non-pressure chronic ulcer of other part of right lower leg with fat layer exposed: CODE(S): L97.812 - Non-pressure chronic ulcer of other part of right lower leg with fat layer exposed PLAN: Patient was examined and evaluated. All findings were discussed with the patient. All questions were answered to the patient's satisfaction. After physical lamination of the note for debridement was done at this time. Patient's full-thickness wound to the right leg/calf measures 0.1 x 0.1 x 0.1 cm. The area will be dressed with lotion and a single layer Tubigrip will be done. The patient will have this applied daily. New orders will be given to have the patient ambulate every hour upon the hour to improve her circulation. The patient will follow-up in 2 weeks and if healed will be discharged from the wound care center at next follow-up. She left the office pleased with her visit.
--- NOTE | 2024-09-25 10:31 | WC ---
PHOTO 09/24/24 RIGHT SUP POST CALF
[2024-10-08 13:04] VITALS: BP 170/71; PULSE 73; RESP 16; TEMP 37.1
--- NOTE | 2024-10-08 13:23 | PN.PCM_ITS ---
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 She has been doing dressing changes. There is improvement to the wound. No drainage sign of infection Progress of Wound: Healed full-thickness wound, right leg Subjective Subjective Ms. Fox is a 83-year-old female presenting with her son today follow-up evaluation of full-thickness wound to left leg. Patient was seen 2 weeks ago and her wound was healed she is here for follow-up and evaluation of the healed skin integrity. Today she is a little swollen because she has not been compressed [facility]. Educated the patient on the importance of compression when she was understanding of. She denies any trauma. Denies any new full-thickness wound or skin breakdown. Denies trauma. Denies constitutional symptoms. No other pedal complaints at this time. Objective Data Objective Data Vital Signs: Vital Signs Temp Pulse Resp BP O2 Del Method 98.7 F 73 16 170/71 H Room Air 10/08/24 13:04 10/08/24 13:04 10/08/24 13:04 10/08/24 13:04 09/24/24 13:00 Oxygen Delivery Method Room Air Physical Exam Narrative Vascular: DP and PT pulses are palpable to bilateral extremity. CFT is brisk. Nonpitting edema appreciated to bilateral lower extremity. No erythema. Skin temperature great is warm to warm from proximal ankles to distal digit bilateral. Neurological: Light touch intact. Patient does respond to painful stimuli. Dermatological: Full-thickness wound to the right posterior leg/calf is now healed. No evidence of new skin breakdown. Musculoskeletal: No pain on palpation to both full-thickness ulceration. No pain with calf compression. Debridement Note Debridement Note Post-Debridement Measurements and Additional Note: Post-Debridement Measurements/Treatment NIRU - Nurse 1 - General Ulcer Assessment Start: 09/24/24 12:59 Freq: Status: Active Protocol: STACIA Activity Type Activity Date Activity User E-sign Co-sign Detail Recorded Client Recorded Date Recorded By Document 09/24/24 13:00 MT [id number] 09/24/24 13:07 MT Document 10/08/24 13:04 DL [id number] 10/08/24 13:11 DL 09/24/24 10/08/24 13:00 13:04 - Today's Visit Information Type of service Follow-up Visit (Physician/LEAD ARCHITECT ) Arrival Mode Ambulatory, Ambulatory, Walker Walker Transfer Assistance None Accompanied by self Patient Identification Verified (Name & Yes Yes ) Patient Requires Transmission-Based No Precautions Safety Precautions Fall Prevention Vital Signs Temperature (97.8 F-99.1 F) 98.7 F Temperature Source Temporal Temporal Pulse Rate (60-100) 73 Pulse Location Monitor Monitor Respiratory Rate (12-18) 18 16 Respiratory rate source Observation Observation Oxygen Delivery Method Room Air Blood Pressure (90/60-120/80) 170/71 H Blood Pressure Mean (mm Hg) 104 Source Monitor Monitor Position Sitting Blood Pressure Location Left Arm History Since Last Visit- (Skip if this is Patient's initial visit) Have you changed medications since your No last visit? Any new allergies or adverse reactions No Had a fall/change in ADL's that may No increase risk of falls Signs or symptoms of abuse and/or No neglect since last visit Have you been in the hospital since your No last visit? Has dressing in place as prescribed Yes Yes Has compression in place as prescribed Yes No Has offloadiing in place as prescribed Yes No Experienced any changes in pain level or Yes No management Left Footwear Regular Shoe Right Footwear Regular Shoe Pain Scale: 0-10 Numeric Is Patient Pain Free? Yes Yes - Nurse 1 - General Ulcer Measurement Start: 09/24/24 12:59 Freq: Status: Active Protocol: Activity Type Activity Date Activity User E-sign Co-sign Detail Recorded Client Recorded Date Recorded By Document 09/24/24 13:00 NH [id number] 09/24/24 13:07 NH Document 10/08/24 13:04 [id number] 10/08/24 13:11 DL 09/24/24 10/08/24 13:00 13:04 Wound Center Nurse 1 #10 R SUP POST CALF -Current Size (cm) - Length 0.1 0.1 -Current Size (cm) - Width 0.1 0.1 -Current Size (cm) - Depth 0.1 0.1 -Total Square Cm 0.01 0.01 -Date of Last Picture (Recall this 09/24/24 field) -Photo Taken Yes -Epithelialization Large 67-100% -Tunneling No -Undermining/Tunneling No -Circular Undermining No -Exudate Amt None Present Small -Exudate Type Serosanguineous -Wound Margin Flat & Intact Distinct, Outline Attached -Granulation Amt Large (67-100%) -Granulation Quality Center Line -Necrosis Amt None Present (0 %) -Structure Exposed N/A -Texture (Maryann-wound Skin Appearance) Assessed Localized Edema ,Scarring -Moisture (Maryann-wound Skin Appearance) Assessed Dry/Scaly -Color (Maryann-wound Skin Appearance) Assessed Hemosiderin Staining -Temperature (Maryann-wound Skin No Abnormality No Abnormality Appearance) (Pt Warm) (Pt Warm) -Tenderness on Palpation (Maryann-wound No Skin Appearance) -Ulcer Cleansing Soap and Water Rinsed/ Irrigated with Saline -Foul Odor after Cleansing No No -Anesthetic Used 5% Lidocaine 5% Lidocaine Gel Gel Right Calf (cm) 40.5 Right Ankle (cm) 23.3 WC - Nurse 2 - General Ulcer CM Notes Start: 09/24/24 12:59 Freq: Status: Active Protocol: Activity Type Activity Date Activity User E-sign Co-sign Detail Recorded Client Recorded Date Recorded By Document 09/24/24 13:13 [id number] 09/24/24 13:14 Document 10/08/24 13:20 [id number] 10/08/24 13:21 09/24/24 10/08/24 13:13 13:20 Wound Center Nurse 2 #10 R SUP POST CALF -Correct Patient Yes Yes -Correct Side, Site, Position No No -Correct Procedure No No -Procedure Performed No No -Post Debridement (cm) - Length 0.1 0 -Post Debridement (cm) - Width 0.1 0 -Post Debridement (cm) - Depth 0.1 0 -Total Square (Post) (cm) 0.01 0 -Area of Debridement (cm) - Length 0.1 0 -Area of Debridement (cm) - Width 0.1 0 -Total Square (Area) (cm) 0.01 0 -Wound/Ulcer Outcome Not Healed Healed- Epithelialized Pain Scale: 0-10 Numeric Is Patient Pain Free? Yes Yes - Nurse 3 - General Ulcer D/C NN Start: 09/24/24 12:59 Freq: Status: Active Protocol: Activity Type Activity Date Activity User E-sign Co-sign Detail Recorded Client Recorded Date Recorded By Document 09/24/24 13:22 NH [id number] 09/24/24 13:22 NH 09/24/24 13:22 Wound Care Center Nurse 3 BLE -Tubular Bandage Single Layer -Size of Tubigrip Used Size D -Size D ($) 2 Pain Scale: 0-10 Numeric Is Patient Pain Free? Yes Assessment/Plan Assessment/Plan (1) Non-pressure chronic ulcer of other part of right lower leg with fat layer exposed: CODE(S): L97.812 - Non-pressure chronic ulcer of other part of right lower leg with fat layer exposed PLAN: Patient was examined and evaluated. All findings were discussed with the patient. All questions were answered to the patient's satisfaction. After physical examination the patient's full-thickness wound to the right leg is now healed. I educated the patient on the importance of compression and that if her facility is not compressing her leg she is to make sure that she is either getting an Rhys wrap, Tubigrip and or gauze and Coban until proper compression can be procured. New orders will be given for the importance of compression on a daily basis. Patient can transfer back to her regular shoe and hold onto the surgical shoe if she is to have any issues to the posterior leg and or Achilles tendon area of the right lower extremity or left lower extremity if needed. Patient showed understanding of this and will follow-up at the wound care center as needed.
[2024-10-15 08:44] VITALS: BP 161/50; PULSE 72; RESP 18; TEMP 36.7
--- NOTE | 2024-10-15 11:37 | PN.PCM_ITS ---
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 She has been doing dressing changes. There is improvement to the wound. No drainage sign of infection Progress of Wound: Reopening due to noncompliance with compression to the Achilles tendon area right lower extremity. Subjective Subjective Patient is 83-year-old female presenting to wound care center today for follow- up evaluation of full-thickness wound that reopened to the Achilles tendon area to the right lower extremity. Patient's nursing staff at her facility was not compliant with compression. We did discuss the need for further compression if the patient had failed to don the stockings herself. Orders were given at the time of discharge but seem to not be followed. However, the patient is resubmitting for complaints of new wound to the Achilles tendon area. There is no drainage or concern for infection. She admits to minimal pain. Denies trauma. Denies constitutional symptoms. Other pedal complaints at this time. Objective Data Objective Data Vital Signs: Vital Signs Temp Pulse Resp BP O2 Del Method 98.1 F 72 18 161/50 H Room Air 10/15/24 08:44 10/15/24 08:44 10/15/24 08:44 10/15/24 08:44 10/15/24 08:44 Oxygen Delivery Method Room Air Physical Exam Narrative Vascular: DP and PT pulses are palpable to bilateral extremity. CFT is brisk. Nonpitting edema appreciated to bilateral lower extremity. Blanchable erythema to the Achilles tendon area full-thickness wound. Skin temperature is warm to warm from proximal ankles to distal digit bilateral. Neurological: Light touch intact. Patient does respond to painful stimuli. Dermatological: Blanchable erythema to periwound to the Achilles tendon area right lower extremity. Full-thickness wound to the Achilles tendon area measures 0.2 x 0.5 x 0.1 cm. Wound base is granular with no sign of infection. Excisional debridement down to including subcutaneous tissue with a number 3 mm dermal curette to the plantar aspect left foot full-thickness wound done without incident.. Right measurement was 1.1 x 1.2 x 0.1 cm. Postdebridement measurement is 1.3 x 1.4 x 0.1 cm. Musculoskeletal: Mild pain on palpation to both full-thickness ulceration. No pain with calf compression. Debridement Note Debridement Note Post-Debridement Measurements and Additional Note: Post-Debridement Measurements/Treatment - Nurse 1 - General Ulcer Assessment Start: 09/24/24 12:59 Freq: Status: Active Protocol: NIRU.LOWEXT Activity Type Activity Date Activity User E-sign Co-sign Detail Recorded Client Recorded Date Recorded By Document 09/24/24 13:00 MT [id number] 09/24/24 13:07 MT Document 10/08/24 13:04 DL [id number] 10/08/24 13:11 DL Document 10/15/24 08:44 KW [id number] 10/15/24 08:46 KW 09/24/24 10/08/24 10/15/24 13:00 13:04 08:44 - Today's Visit Information Type of service Follow-up Visit Follow-up Visit (Physician/SPANISH INTERPRETER (Physician/SPANISH INTERPRETER ) ) Arrival Mode Ambulatory, Ambulatory, Ambulatory, Walker Walker Walker Transfer Assistance None Accompanied by self Patient Identification Verified (Name & Yes Yes Yes ) Patient Requires Transmission-Based No Precautions Safety Precautions Fall Prevention Vital Signs Temperature (97.8 F-99.1 F) 98.7 F 98.1 F Temperature Source Temporal Temporal Temporal Pulse Rate (60-100) 73 72 Pulse Location Monitor Monitor Monitor Respiratory Rate (12-18) 18 16 18 Respiratory rate source Observation Observation Observation Oxygen Delivery Method Room Air Room Air Blood Pressure (90/60-120/80) 170/71 H 161/50 H Blood Pressure Mean (mm Hg) 104 87 Source Monitor Monitor Monitor Position Sitting Semi-Fowlers Blood Pressure Location Left Arm Left Arm History Since Last Visit- (Skip if this is Patient's initial visit) Have you changed medications since your No No last visit? Any new allergies or adverse reactions No No Had a fall/change in ADL's that may No No increase risk of falls Signs or symptoms of abuse and/or No No neglect since last visit Have you been in the hospital since your No No last visit? Has dressing in place as prescribed Yes Yes Yes Has compression in place as prescribed Yes No Yes Has offloadiing in place as prescribed Yes No N/A Experienced any changes in pain level or Yes No No management Left Footwear Regular Shoe Regular Shoe Right Footwear Regular Shoe Surgical Shoe with pressure relief insole Pain Scale: 0-10 Numeric Is Patient Pain Free? Yes Yes Yes WC - Nurse 1 - General Ulcer Measurement Start: 09/24/24 12:59 Freq: Status: Active Protocol: Activity Type Activity Date Activity User E-sign Co-sign Detail Recorded Client Recorded Date Recorded By Document 09/24/24 13:00 MT [id number] 09/24/24 13:07 MT Document 10/08/24 13:04 DL [id number] 10/08/24 13:11 DL Document 10/15/24 08:44 KW [id number] 10/15/24 08:46 KW 09/24/24 10/08/24 10/15/24 13:00 13:04 08:44 Wound Center Nurse 1 #10 R SUP POST CALF -Current Size (cm) - Length 0.1 0.1 -Current Size (cm) - Width 0.1 0.1 -Current Size (cm) - Depth 0.1 0.1 -Total Square Cm 0.01 0.01 -Date of Last Picture (Recall this 09/24/24 field) -Photo Taken Yes -Epithelialization Large 67-100% -Tunneling No -Undermining/Tunneling No -Circular Undermining No -Exudate Amt None Present Small -Exudate Type Serosanguineous -Wound Margin Flat & Intact Distinct, Outline Attached -Granulation Amt Large (67-100%) -Granulation Quality [place] -Necrosis Amt None Present (0 %) -Structure Exposed N/A -Texture (Maryann-wound Skin Appearance) Assessed Localized Edema ,Scarring -Moisture (Maryann-wound Skin Appearance) Assessed Dry/Scaly -Color (Maryann-wound Skin Appearance) Assessed Hemosiderin Staining -Temperature (Maryann-wound Skin No Abnormality No Abnormality Appearance) (Pt Warm) (Pt Warm) -Tenderness on Palpation (Maryann-wound No Skin Appearance) -Ulcer Cleansing Soap and Water Rinsed/ Irrigated with Saline -Foul Odor after Cleansing No No -Anesthetic Used 5% Lidocaine 5% Lidocaine Gel Gel 16 RT POST LE -Current Size (cm) - Length 0.1 -Current Size (cm) - Width 0.1 -Current Size (cm) - Depth 0 -Total Square Cm 0.01 -Date of Last Picture (Recall this 10/15/24 field) -Exudate Amt Large -Exudate Type Serosanguineous -Wound Margin Distinct, Outline Attached -Granulation Amt Large (67-100%) -Granulation Quality Red -Texture (Maryann-wound Skin Appearance) Assessed -Moisture (Maryann-wound Skin Appearance) Assessed -Color (Maryann-wound Skin Appearance) Assessed, Erythema -Temperature (Maryann-wound Skin No Abnormality Appearance) (Pt Warm) -Tenderness on Palpation (Maryann-wound No Skin Appearance) -Ulcer Cleansing Soap and Water -Foul Odor after Cleansing No -Anesthetic Used 5% Lidocaine Gel Right Calf (cm) 40.5 39.5 Right Ankle (cm) 23.3 23 WC - Nurse 2 - General Ulcer CM Notes Start: 09/24/24 12:59 Freq: Status: Active Protocol: Activity Type Activity Date Activity User E-sign Co-sign Detail Recorded Client Recorded Date Recorded By Document 09/24/24 13:13 [id number] 09/24/24 13:14 Document 10/08/24 13:20 [id number] 10/08/24 13:21 Document 10/15/24 09:19 [id number] 10/15/24 09:21 09/24/24 10/08/24 10/15/24 13:13 13:20 09:19 Wound Center Nurse 2 #10 R SUP POST CALF -Correct Patient Yes Yes -Correct Side, Site, Position No No -Correct Procedure No No -Procedure Performed No No -Post Debridement (cm) - Length 0.1 0 -Post Debridement (cm) - Width 0.1 0 -Post Debridement (cm) - Depth 0.1 0 -Total Square (Post) (cm) 0.01 0 -Area of Debridement (cm) - Length 0.1 0 -Area of Debridement (cm) - Width 0.1 0 -Total Square (Area) (cm) 0.01 0 -Wound/Ulcer Outcome Not Healed Healed- Epithelialized 16 RT POST LE -Time 09:20 -Correct Patient Yes -Correct Side, Site, Position Yes -Correct Procedure Yes -Procedure Performed Yes -Type of Procedure Debridement -Clinical Debridement Subcutaneous -Tissue Removed Subcutaneous -Post Debridement (cm) - Length 0.2 -Post Debridement (cm) - Width 0.5 -Post Debridement (cm) - Depth 0.1 -Total Square (Post) (cm) 0.10 -Area of Debridement (cm) - Length 0.2 -Area of Debridement (cm) - Width 0.5 -Total Square (Area) (cm) 0.10 -Tunneling No -Undermining/Tunneling No -Circular Undermining No -Wound/Ulcer Outcome Not Healed -Ulcer Cleansing Rinsed/ Irrigated with Saline -Foul Odor after Cleansing No -Bioengineered Tissue No -Bleeding Controlled with Pressure -Treatment Response Procedure Tolerated Well -Offloading No -Debridement - Subq, 1st 20sq cm Yes Pain Scale: 0-10 Numeric Is Patient Pain Free? Yes Yes Yes - Nurse 3 - General Ulcer D/C NN Start: 09/24/24 12:59 Freq: Status: Active Protocol: Activity Type Activity Date Activity User E-sign Co-sign Detail Recorded Client Recorded Date Recorded By Document 09/24/24 13:22 IA [id number] 09/24/24 13:22 IA Document 10/15/24 09:36 IA [id number] 10/15/24 09:38 IA 09/24/24 10/15/24 13:22 09:36 Wound Care Center Nurse 3 16 RT POST LE -Other Dressing BETADINE -Primary Dressing Covered/Secured with Dry Gauze, Secured with Tape BLE -Tubular Bandage Single Layer Single Layer -Size of Tubigrip Used Size D Size E -Size D ($) 2 -Size E ($) 2 Pain Scale: 0-10 Numeric Is Patient Pain Free? Yes Yes - Visit Discharge Discharge Condition Stable Ambulatory Status Ambulatory Transportation Private Auto Medication Reconcilliation completed & No provided to patient/care provider Clinical Summary of Care Provided Yes Notes: PERSCRIPTION FOR TRIAMCINOLINE CERAM TO APPLY TO R LEGS BID Assessment/Plan Assessment/Plan (1) Non-pressure chronic ulcer of other part of right lower leg with fat layer exposed: CODE(S): L97.812 - Non-pressure chronic ulcer of other part of right lower leg with fat layer exposed PLAN: Patient was examined and evaluated. All findings were discussed with the patient. All questions were answered to the patient's satisfaction. Excisional debridement down to including subcutaneous tissue with a number 3 mm dermal curette to the plantar aspect left foot full-thickness wound done without incident.. Right measurement was 1.1 x 1.2 x 0.1 cm. Postdebridement measurement is 1.3 x 1.4 x 0.1 cm. The Achilles tendon areas were cleaned and patted dry. Betadine paint and Band-Aid were applied. Patient was given a prescription for triamcinolone 0.1% cream to be applied twice daily to the periwound area followed by dressing changes with compression orders given in detail. He was further stressed as it was in the prior discharge note that if the patient fails to don compression sleeves due to losing them she is to be placed in Rhys wrap's or new Tubigrip's are to be ordered to be donned on the patient's bilateral lower extremity as she is at risk for further skin breakdown. These orders and concerns were expressed at discharge paperwork today. Follow-up at the wound care center with Dr. Sylvester in 1 week.
--- NOTE | 2024-10-16 11:02 | WC ---
PHOTO 10/15/24 RIGHT POST LE
== END 2024-10-18 23:59 | disposition home or self-care (01) ==
LOC: WC 08:30
PROVIDERS: PCP Family Medicine; Referring Provider Physician Assistant; Visit Provider Podiatrist Foot & Ankle Surgery
DX: L97.812 Non-pressure chronic ulcer of other part of right lower leg with fat layer exposed (principal); Z91.A98 Caregiver's noncompliance with patient's other medical treatment and regimen for other reason; Z79.01 Long term (current) use of anticoagulants; Z79.899 Other long term (current) drug therapy
CPT/HCPCS: 11042; 99213; G0463

== ENCOUNTER 2024-10-29 10:38 | Outpatient (RCR) | payer MEDICARE, SELFPAY ==
[2024-10-19 00:11] VITALS: BP 161/50; PULSE 72; RESP 18; TEMP 36.7
[2024-10-29 11:08] VITALS: BP 200/66; PULSE 67; RESP 16; TEMP 36.4
--- NOTE | 2024-10-29 13:20 | PCM.WC.PN ---
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 She has been doing dressing changes. There is improvement to the wound. No drainage sign of infection Progress of Wound: Full-thickness wound to the right posterior leg Subjective Subjective Patient is 83-year-old female presented with her son today follow-up evaluation of full-thickness wound to the right posterior leg. Nursing documentation stated that the patient sits for 8 hours/day with her legs in a dependent position where she colors even though we have attempted to reinforce not just with nursing but with the patient to make sure that she is elevating her bilateral lower extremity is much as possible. We gave examples that if she is dependent for 2 hours she is elevated for 1 hour which has not seemed to be the case. She denies any strikethrough. She has been wearing compression. Denies trauma. Denies constitutional symptoms. Other pedal complaints at this time. Objective Data Objective Data Vital Signs: Vital Signs Temp Pulse Resp BP O2 Del Method 97.6 F L 67 16 200/66 H Room Air 10/29/24 11:08 10/29/24 11:08 10/29/24 11:08 10/29/24 11:08 10/29/24 11:08 Oxygen Delivery Method Room Air Physical Exam Narrative Vascular: DP and PT pulses are palpable to bilateral extremity. CFT is brisk. Nonpitting edema appreciated to bilateral lower extremity. No erythema to the posterior right leg. Skin temperature is warm to warm from proximal ankles to distal digit bilateral. Neurological: Light touch intact. Patient does respond to painful stimuli. Dermatological: No erythema to the posterior right leg. Full-thickness wound is now healed. Musculoskeletal: Mild pain on palpation to both full-thickness ulceration. No pain with calf compression. Debridement Note Debridement Note Post-Debridement Measurements and Additional Note: Post-Debridement Measurements/Treatment - Nurse 1 - General Ulcer Assessment Start: 10/29/24 11:08 Freq: Status: Active Protocol: LOWEXT Activity Type Activity Date Activity User E-sign Co-sign Detail Recorded Client Recorded Date Recorded By Document 10/29/24 11:08 KW [id number] 10/29/24 11:19 DANIKA 10/29/24 11:08 - Today's Visit Information Type of service Follow-up Visit (Physician/ACCOUNT DEVELOPMENT ASSOCIATE ) Arrival Mode Ambulatory, Wheelchair Patient Identification Verified (Name & Yes ) Vital Signs Temperature (97.8 F-99.1 F) 97.6 F L Temperature Source Temporal Pulse Rate (60-100) 67 Pulse Location Monitor Respiratory Rate (12-18) 16 Respiratory rate source Observation Oxygen Delivery Method Room Air Blood Pressure (90/60-120/80) 200/66 H Blood Pressure Mean (mm Hg) 110 History Since Last Visit- (Skip if this is Patient's initial visit) Have you changed medications since your No last visit? Any new allergies or adverse reactions No Had a fall/change in ADL's that may No increase risk of falls Signs or symptoms of abuse and/or No neglect since last visit Have you been in the hospital since your No last visit? Has dressing in place as prescribed No Has compression in place as prescribed No Has offloadiing in place as prescribed N/A Experienced any changes in pain level or No management Left Footwear Regular Shoe Right Footwear Regular Shoe Pain Scale: 0-10 Numeric Is Patient Pain Free? Yes - Nurse 1 - General Ulcer Measurement Start: 10/29/24 11:08 Freq: Status: Active Protocol: Activity Type Activity Date Activity User E-sign Co-sign Detail Recorded Client Recorded Date Recorded By Document 10/29/24 11:08 DANIKA [id number] 10/29/24 11:19 KW 10/29/24 11:08 Wound Center Nurse 1 16 RT POST LE -Current Size (cm) - Length 0.1 -Current Size (cm) - Width 0.1 -Current Size (cm) - Depth 0 -Total Square Cm 0.01 Right Calf (cm) 43 Right Ankle (cm) 22.5 Left Calf (cm) 44 Left Ankle (cm) 23.5 - Nurse 2 - General Ulcer CM Notes Start: 10/29/24 11:08 Freq: Status: Active Protocol: Activity Type Activity Date Activity User E-sign Co-sign Detail Recorded Client Recorded Date Recorded By Document 10/29/24 11:33 KATELYNN [id number] 10/29/24 11:34 KATELYNN 10/29/24 11:33 Wound Center Nurse 2 16 RT POST LE -Correct Patient Yes -Correct Side, Site, Position No -Correct Procedure No -Procedure Performed No -Post Debridement (cm) - Length 0 -Post Debridement (cm) - Width 0 -Post Debridement (cm) - Depth 0 -Total Square (Post) (cm) 0 -Area of Debridement (cm) - Length 0 -Area of Debridement (cm) - Width 0 -Total Square (Area) (cm) 0 -Wound/Ulcer Outcome Healed- Epithelialized Pain Scale: 0-10 Numeric Is Patient Pain Free? Yes WC - Nurse 3 - General Ulcer D/C NN Start: 10/29/24 11:08 Freq: Status: Active Protocol: Activity Type Activity Date Activity User E-sign Co-sign Detail Recorded Client Recorded Date Recorded By Document 10/29/24 11:49 [id number] 10/29/24 11:49 10/29/24 11:49 Wound Care Center Nurse 3 BLE -Lotion applied to leg before Yes compression wrap -Multi-Layered Wrap Application Multi-Layer Comp - Bilat ($ ) -Multi-Layer Compression Bilat (Qty 1 applied) Pain Scale: 0-10 Numeric Is Patient Pain Free? Yes WC - Visit Discharge Discharge Condition Stable Ambulatory Status Ambulatory, Walker Transportation Private Auto Assessment/Plan Assessment/Plan (1) Non-pressure chronic ulcer of other part of right lower leg with fat layer exposed: CODE(S): L97.812 - Non-pressure chronic ulcer of other part of right lower leg with fat layer exposed PLAN: Patient was examined and evaluated. All findings were discussed with the patient. All questions were answered to the patient's satisfaction. At this time we will give orders for nursing staff to make sure that the patient is getting up from her chair and elevating her feet for 1 hour for every 2 hours that she is down coloring at the table. The patient will be placed in multilayer compression wraps bilateral. She will either follow-up with nursing staff for changing or she will have the staff at the facility to change her multilayer compression bandages. Educated the patient on the importance of elevation which she seemed to be understanding of. Follow-up at the wound care center with Dr. Sylvester in 1 week.
--- NOTE | 2024-10-29 14:22 | WC ---
PHOTO 10/29/24 RIGHT POST LE
== END 2024-11-17 23:59 | disposition home or self-care (01) ==
LOC: WC 10:38
PROVIDERS: PCP Family Medicine; Referring Provider Physician Assistant; Visit Provider Podiatrist Foot & Ankle Surgery
DX: Z09 Encounter for follow-up examination after completed treatment for conditions other than malignant neoplasm (principal); X58.XXXS Exposure to other specified factors, sequela; Z79.899 Other long term (current) drug therapy
CPT/HCPCS: 29581; 99213; G0463

== ENCOUNTER 2024-12-10 13:17 | Outpatient (RCR) | payer MEDICARE, SELFPAY ==
[2024-12-10 13:40] VITALS: BP 179/69; PULSE 71; RESP 16; TEMP 36.6
--- NOTE | 2024-12-10 15:27 | PCM.WC.PN ---
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 She has been doing dressing changes. There is improvement to the wound. No drainage sign of infection Progress of Wound: New medial lateral full-thickness wound to the right ankle on the posterior right leg. Subjective Subjective Patient is a 83-year-old female presenting to wound care center today for follow-up evaluation of new wounds to the medial lateral aspect of the right ankle to the posterior right leg. Patient is unsure how the wound happened. She denies trauma to the area. She is wearing her compression. Patient does suffer from dementia. She denies trauma. Denies constitutional symptoms. No other complaints at this time. Objective Data Objective Data Vital Signs: Vital Signs Temp Pulse Resp BP O2 Del Method 98 F 71 16 179/69 H Room Air 12/10/24 13:40 12/10/24 13:40 12/10/24 13:40 12/10/24 13:40 12/10/24 13:40 Oxygen Delivery Method Room Air Physical Exam Narrative Vascular: DP and PT pulses are palpable to bilateral extremity. CFT is brisk. Nonpitting edema appreciated to bilateral lower extremity. No erythema to the posterior right leg. Skin temperature is warm to warm from proximal ankles to distal digit bilateral. Neurological: Light touch intact. Patient does respond to painful stimuli. Dermatological: Evidence of a new full-thickness wound to the medial lateral aspect of the posterior right ankle. The right lateral wound measures 6.7 x 2.3 x 0.1 cm. The right medial wound measures 4.5 x 3.3 x 0.1 cm. Both wound bases are granular nature with no drainage or sign of infection. Excisional debridement down to including subcutaneous tissue of the right lateral posterior ankle with a number 5 mm dermal curette done without incident. Predebridement measurement was 6.6 x 2.0 x 0.1 cm. Postdebridement measurement 6.7 x 2.3 x 0.1 cm. Excisional debridement down to and including subcutaneous tissue of the right medial posterior ankle wound with a number 5 mm dermal curette done without incident. Predebridement measurement was 4.4 x 3.2 x 0.1 cm. Postdebridement measurement is 4.5 x 3.3 x 0.1 cm. Musculoskeletal: Mild pain on palpation to both full-thickness ulceration. No pain with calf compression. Debridement Note Debridement Note Debridement Free Text: Excisional debridement down to including subcutaneous tissue of the right lateral posterior ankle with a number 5 mm dermal curette done without incident. Predebridement measurement was 6.6 x 2.0 x 0.1 cm. Postdebridement measurement 6.7 x 2.3 x 0.1 cm. Excisional debridement down to and including subcutaneous tissue of the right medial posterior ankle wound with a number 5 mm dermal curette done without incident. Predebridement measurement was 4.4 x 3.2 x 0.1 cm. Postdebridement measurement is 4.5 x 3.3 x 0.1 cm. Post-Debridement Measurements and Additional Note: Post-Debridement Measurements/Treatment WC - Nurse 1 - General Ulcer Assessment Start: 12/10/24 13:38 Freq: Status: Active Protocol: STACIA Activity Type Activity Date Activity User E-sign Co-sign Detail Recorded Client Recorded Date Recorded By Document 12/10/24 13:40 NJ [id number] 12/10/24 13:47 NJ 12/10/24 13:40 - Today's Visit Information Type of service Follow-up Visit (Physician/PROBATION AGENT ) Arrival Mode Ambulatory, Walker Transfer Assistance Other Transfer Assist (Other) 2 Vital Signs Temperature (97.8 F-99.1 F) 98 F Temperature Source Temporal Pulse Rate (60-100) 71 Pulse Location Monitor Respiratory Rate (12-18) 16 Respiratory rate source Observation Oxygen Delivery Method Room Air Blood Pressure (90/60-120/80) 179/69 H Blood Pressure Mean (mm Hg) 105 Source Monitor Position Sitting Blood Pressure Location Right Arm History Since Last Visit- (Skip if this is Patient's initial visit) Have you changed medications since your No last visit? Any new allergies or adverse reactions No Had a fall/change in ADL's that may No increase risk of falls Signs or symptoms of abuse and/or No neglect since last visit Have you been in the hospital since your No last visit? Has compression in place as prescribed Yes Has offloadiing in place as prescribed N/A Experienced any changes in pain level or No management Left Footwear Slipper Right Footwear Slipper Pain Scale: 0-10 Numeric Is Patient Pain Free? Yes WC - Nurse 1 - General Ulcer Measurement Start: 12/10/24 13:38 Freq: Status: Active Protocol: Activity Type Activity Date Activity User E-sign Co-sign Detail Recorded Client Recorded Date Recorded By Document 12/10/24 13:40 NJ [id number] 12/10/24 13:47 [place] 12/10/24 13:40 Wound Center Nurse 1 #12 R ACHILLES -Combined with other wound No -Current Size (cm) - Length 0 -Current Size (cm) - Width 0 -Current Size (cm) - Depth 0 -Total Square Cm 0 -Texture (Maryann-wound Skin Appearance) Scarring #14- R MEDIAL CALF -Combined with other wound No -Current Size (cm) - Length 4.5 -Current Size (cm) - Width 3.8 -Current Size (cm) - Depth 0.1 -Total Square Cm 17.10 -Date of Last Picture (Recall this 12/10/24 field) -Photo Taken Yes -Tunneling No -Undermining/Tunneling No -Circular Undermining No -Exudate Amt Large -Exudate Type Serosanguineous -Wound Margin Flat & Intact -Granulation Amt Large (67-100%) -Granulation Quality Red -Slough/Fibrin No -Necrosis Amt None Present (0 %) -Texture (Maryann-wound Skin Appearance) Assessed, Scarring -Moisture (Maryann-wound Skin Appearance) Assessed -Color (Maryann-wound Skin Appearance) Assessed -Temperature (Maryann-wound Skin No Abnormality Appearance) (Pt Warm) -Tenderness on Palpation (Maryann-wound No Skin Appearance) -Ulcer Cleansing Soap and Water -Foul Odor after Cleansing No -Anesthetic Used 5% Lidocaine Gel #13- R LAT CALF -Current Size (cm) - Length 7 -Current Size (cm) - Width 2.2 -Current Size (cm) - Depth 0.1 -Total Square Cm 15.4 -Date of Last Picture (Recall this 12/10/24 field) -Photo Taken Yes -Tunneling No -Undermining/Tunneling No -Circular Undermining No -Exudate Amt Large -Exudate Type Serosanguineous -Wound Margin Flat & Intact -Granulation Amt Large (67-100%) -Granulation Quality Red -Slough/Fibrin No -Necrosis Amt None Present (0 %) -Texture (Maryann-wound Skin Appearance) Assessed -Moisture (Maryann-wound Skin Appearance) Assessed -Color (Maryann-wound Skin Appearance) Assessed -Temperature (Maryann-wound Skin No Abnormality Appearance) (Pt Warm) -Tenderness on Palpation (Maryann-wound No Skin Appearance) -Ulcer Cleansing Soap and Water -Foul Odor after Cleansing No -Anesthetic Used 5% Lidocaine Gel WC - Nurse 2 - General Ulcer CM Notes Start: 12/10/24 13:38 Freq: Status: Active Protocol: Activity Type Activity Date Activity User E-sign Co-sign Detail Recorded Client Recorded Date Recorded By Document 12/10/24 13:59 [id number] 12/10/24 14:01 12/10/24 13:59 Wound Center Nurse 2 #14- R [facility] CALF -Time 14:00 -Correct Patient Yes -Correct Side, Site, Position Yes -Correct Procedure Yes -Procedure Performed Yes -Type of Procedure Debridement -Clinical Debridement Subcutaneous -Tissue Removed Subcutaneous -Post Debridement (cm) - Length 4.5 -Post Debridement (cm) - Width 3.3 -Post Debridement (cm) - Depth 0.1 -Total Square (Post) (cm) 14.85 -Area of Debridement (cm) - Length 4.5 -Area of Debridement (cm) - Width 3.3 -Total Square (Area) (cm) 14.85 -Tunneling No -Undermining/Tunneling No -Circular Undermining No -Wound/Ulcer Outcome Not Healed -Ulcer Cleansing Rinsed/ Irrigated with Saline -Foul Odor after Cleansing No -Bioengineered Tissue No -Bleeding Controlled with Pressure -Treatment Response Procedure Tolerated Well -Offloading No -Debridement - Subq, 1st 20sq cm No #13- R LAT CALF -Time 14:00 -Correct Patient Yes -Correct Side, Site, Position Yes -Correct Procedure Yes -Procedure Performed Yes -Type of Procedure Debridement -Clinical Debridement Subcutaneous -Tissue Removed Subcutaneous -Post Debridement (cm) - Length 6.7 -Post Debridement (cm) - Width 2.3 -Post Debridement (cm) - Depth 0.1 -Total Square (Post) (cm) 15.41 -Area of Debridement (cm) - Length 6.7 -Area of Debridement (cm) - Width 2.3 -Total Square (Area) (cm) 15.41 -Tunneling No -Undermining/Tunneling No -Circular Undermining No -Wound/Ulcer Outcome Not Healed -Ulcer Cleansing Rinsed/ Irrigated with Saline -Foul Odor after Cleansing No -Bioengineered Tissue No -Bleeding Controlled with Pressure -Treatment Response Procedure Tolerated Well -Offloading No -Debridement - Subq, 1st 20sq cm Yes -Debridement, SubQ, ea addt'l 20sq cm 1 or part thereof Pain Scale: 0-10 Numeric Is Patient Pain Free? Yes WC - Nurse 3 - General Ulcer D/C NN Start: 12/10/24 13:38 Freq: Status: Active Protocol: Activity Type Activity Date Activity User E-sign Co-sign Detail Recorded Client Recorded Date Recorded By Document 12/10/24 14:21 DL [id number] 12/10/24 14:22 DL 12/10/24 14:21 Wound Care Center Nurse 3 #14- R MEDIAL CALF -Ulcer Cleansing Rinsed/ Irrigated with Saline -Foul Odor after Cleansing No -Primary Dressing Applied Silvercel -Primary Dressing Covered/Secured with Dry Gauze & Roll Gauze, Secured with Tape -Silvercel 1 #13- R LAT CALF -Ulcer Cleansing Rinsed/ Irrigated with Saline -Foul Odor after Cleansing No -Other Dressing SILVERCELL -Primary Dressing Covered/Secured with Dry Gauze & Roll Gauze, Secured with Tape BLE -Tubular Bandage Double Layer -Size of Tubigrip Used Size E -Size E ($) 2 Treatment Response Procedure Tolerated Well Pain Scale: 0-10 Numeric Is Patient Pain Free? Yes WC - Visit Discharge Discharge Condition Stable Ambulatory Status Ambulatory, Walker Transportation Private [facility] Facility Type [employer] Supervisor Care Facility Orders Sent Yes Assessment/Plan Assessment/Plan (1) Non-pressure chronic ulcer of right ankle with fat layer exposed: CODE(S): L97.312 - Non-pressure chronic ulcer of right ankle with fat layer exposed PLAN: Patient was examined and evaluated. All findings were discussed with the patient. All questions were answered to the patient's satisfaction. Excisional debridement down to including subcutaneous tissue of the right lateral posterior ankle with a number 5 mm dermal curette done without incident. Predebridement measurement was 6.6 x 2.0 x 0.1 cm. Postdebridement measurement 6.7 x 2.3 x 0.1 cm. Excisional debridement down to and including subcutaneous tissue of the right medial posterior ankle wound with a number 5 mm dermal curette done without incident. Predebridement measurement was 4.4 x 3.2 x 0.1 cm. Postdebridement measurement is 4.5 x 3.3 x 0.1 cm. The areas were wiped clean and patted dry. Silver alginate followed by dry sterile dressing and compression wrap was donned to the right lower extremity. There is no concern for infection at this time but will continue compression wrap for at least 1 week and then apply for amniotic skin graft substitute after 4 weeks of conservative treatment if healing is delayed. Follow-up at the wound care center with Dr. Sylvester in 1 week. (2) Other specified peripheral vascular diseases: CODE(S): I73.89 - Other specified peripheral vascular diseases
--- NOTE | 2024-12-11 08:35 | WC ---
PHOTO-RIGHT LATERAL CALF 12/10/24
--- NOTE | 2024-12-11 08:36 | WC ---
PHOTO-RIGHT MEDIAL CALF 12/10/24
== END 2024-12-18 23:59 | disposition home or self-care (01) ==
LOC: WC 13:17
PROVIDERS: PCP Family Medicine; Referring Provider Physician Assistant; Visit Provider Podiatrist Foot & Ankle Surgery
DX: L97.312 Non-pressure chronic ulcer of right ankle with fat layer exposed (principal); F03.90 Unspecified dementia, unspecified severity, without behavioral disturbance, psychotic disturbance, mood disturbance, and anxiety; I73.89 Other specified peripheral vascular diseases; S91.001S Unspecified open wound, right ankle, sequela
CPT/HCPCS: 11042; 11045; 99213; G0463

== ENCOUNTER 2025-01-14 13:00 | Outpatient (RCR) | payer MEDICARE, SELFPAY ==
[2024-12-24 13:55] VITALS: BP 153/82; PULSE 71; RESP 18; TEMP 37.2
--- NOTE | 2024-12-24 14:21 | PCM.WC.PN ---
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 She has been doing dressing changes. There is improvement to the wound. No drainage sign of infection Progress of Wound: Stable full-thickness wounds to the medial and lateral right ankle/calf area. Subjective Subjective Patient is a 84-year-old female presented wound care center today for follow-up evaluation of right lower extremity posterior medial and lateral full-thickness wound. Patient is unaccompanied at today's visit and was dropped off by a local company refrigerated truck driver from her nursing facility. She states that they have not changed her dressing in 2 days. She has no pain to the right lower extremity. She denies any new onset of trauma. Denies constitutional symptoms. No other pedal complaints at this time. Objective Data Objective Data Vital Signs: Vital Signs Temp Pulse Resp BP 99 F 71 18 153/82 H 12/24/24 13:55 12/24/24 13:55 12/24/24 13:55 12/24/24 13:55 Physical Exam Narrative Vascular: DP and PT pulses are palpable to bilateral extremity. CFT is brisk. Nonpitting edema appreciated to bilateral lower extremity. No erythema to the posterior right leg. Skin temperature is warm to warm from proximal ankles to distal digit bilateral. Neurological: Light touch intact. Patient does respond to painful stimuli. Dermatological: Evidence of a new full-thickness wound to the medial lateral aspect of the posterior right ankle. The right lateral wound measures 4.8 x 1.3 x 0.1 cm. The right medial wound measures 4.0 x 3.0 x 0.1 cm. Both wound bases are granular nature with no drainage or sign of infection. Excisional debridement down to including subcutaneous tissue of the right lateral posterior ankle with a number 5 mm dermal curette done without incident. Predebridement measurement was 4.7 x 1.2 x 0.1 cm. Postdebridement measurement 4.8 x 1.3 x 0.1 cm. Excisional debridement down to and including subcutaneous tissue of the right medial posterior ankle wound with a number 5 mm dermal curette done without incident. Predebridement measurement was 3.8 x 2.8 x 0.1 cm. Postdebridement measurement is 4.0 x 3.0 x 0.1 cm. Musculoskeletal: Mild pain on palpation to both full-thickness ulceration. No pain with calf compression. Debridement Note Debridement Note Debridement Free Text: Excisional debridement down to including subcutaneous tissue of the right lateral posterior ankle with a number 5 mm dermal curette done without incident. Predebridement measurement was 4.7 x 1.2 x 0.1 cm. Postdebridement measurement 4.8 x 1.3 x 0.1 cm. Excisional debridement down to and including subcutaneous tissue of the right medial posterior ankle wound with a number 5 mm dermal curette done without incident. Predebridement measurement was 3.8 x 2.8 x 0.1 cm. Postdebridement measurement is 4.0 x 3.0 x 0.1 cm. Post-Debridement Measurements and Additional Note: Post-Debridement Measurements/Treatment WC - Nurse 1 - General Ulcer Assessment Start: 12/24/24 13:55 Freq: Status: Active Protocol: [email or web address].PRACHI Activity Type Activity Date Activity User E-sign Co-sign Detail Recorded Client Recorded Date Recorded By Document 12/24/24 13:55 DL [id number] 12/24/24 14:05 DL Edit Result 12/24/24 13:55 DL (1) [id number] 12/24/24 14:09 DL (1) Blood Pressure (90/60-120/80) 179/91 H => 153/82 H Blood Pressure Mean (mm Hg) 120 => 105 12/24/24 13:55 WC - Today's Visit Information Type of service Follow-up Visit (Physician/MECHANICAL MAINTENANCE SUPERVISOR ) Arrival Mode Ambulatory, Walker Transfer Assistance Manual Transfer Assist (Other) x1 Patient Identification Verified (Name & Yes ) Vital Signs Temperature (97.8 F-99.1 F) 99 F Temperature Source Temporal Pulse Rate (60-100) 71 Pulse Location Monitor Respiratory Rate (12-18) 18 Respiratory rate source Observation Blood Pressure (90/60-120/80) 153/82 H Blood Pressure Mean (mm Hg) 105 Source Monitor History Since Last Visit- (Skip if this is Patient's initial visit) Have you changed medications since your No last visit? Any new allergies or adverse reactions No Had a fall/change in ADL's that may No increase risk of falls Signs or symptoms of abuse and/or No neglect since last visit Have you been in the hospital since your No last visit? Has dressing in place as prescribed Yes Has compression in place as prescribed Yes Has offloadiing in place as prescribed N/A Experienced any changes in pain level or No management Right Footwear Surgical Shoe with pressure relief insole Pain Scale: 0-10 Numeric Is Patient Pain Free? Yes WC - Nurse 1 - General Ulcer Measurement Start: 12/24/24 13:55 Freq: Status: Active Protocol: Activity Type Activity Date Activity User E-sign Co-sign Detail Recorded Client Recorded Date Recorded By Document 12/24/24 13:55 DL [id number] 12/24/24 14:05 DL 12/24/24 13:55 Wound Center Nurse 1 #14- R MEDIAL CALF -Current Size (cm) - Length 4 -Current Size (cm) - Width 3.6 -Current Size (cm) - Depth 0.1 -Total Square Cm 14.4 -Exudate Amt Medium -Exudate Type Serosanguineous -Wound Margin Distinct, Outline Attached -Granulation Amt Medium (34-66%) -Necrosis Amt Medium (34-66%) -Necrotic Tissue Type Adherent Slough -Structure Exposed N/A -Texture (Maryann-wound Skin Appearance) Localized Edema ,Scarring -Moisture (Maryann-wound Skin Appearance) Dry/Scaly -Color (Maryann-wound Skin Appearance) Hemosiderin Staining -Temperature (Maryann-wound Skin No Abnormality Appearance) (Pt Warm) -Ulcer Cleansing Soap and Water -Foul Odor after Cleansing No -Anesthetic Used 5% Lidocaine Gel #13- R LAT CALF -Current Size (cm) - Length 5 -Current Size (cm) - Width 1.4 -Current Size (cm) - Depth 0.1 -Total Square Cm 7.0 -Exudate Amt Medium -Exudate Type Serosanguineous -Wound Margin Distinct, Outline Attached -Granulation Amt Medium (34-66%) -Granulation Quality [place] -Necrosis Amt Medium (34-66%) -Necrotic Tissue Type Adherent Slough -Structure Exposed N/A -Texture (Maryann-wound Skin Appearance) Localized Edema ,Scarring -Moisture (Maryann-wound Skin Appearance) Dry/Scaly -Color (Maryann-wound Skin Appearance) Hemosiderin Staining -Temperature (Maryann-wound Skin No Abnormality Appearance) (Pt Warm) -Tenderness on Palpation (Maryann-wound No Skin Appearance) -Ulcer Cleansing Soap and Water -Foul Odor after Cleansing No -Anesthetic Used 5% Lidocaine Gel Right Calf (cm) 43.3 Right Ankle (cm) 22.6 WC - Nurse 2 - General Ulcer CM Notes Start: 12/24/24 13:55 Freq: Status: Active Protocol: Activity Type Activity Date Activity User E-sign Co-sign Detail Recorded Client Recorded Date Recorded By Document 12/24/24 14:15 KATELYNN [id number] 12/24/24 14:16 KATELYNN 12/24/24 14:15 Wound Center Nurse 2 #14- R MEDIAL CALF -Time 14:15 -Correct Patient Yes -Correct Side, Site, Position Yes -Correct Procedure Yes -Procedure Performed Yes -Type of Procedure Debridement -Clinical Debridement Subcutaneous -Tissue Removed Subcutaneous -Post Debridement (cm) - Length 4 -Post Debridement (cm) - Width 3 -Post Debridement (cm) - Depth 0.1 -Total Square (Post) (cm) 12 -Area of Debridement (cm) - Length 4 -Area of Debridement (cm) - Width 3 -Total Square (Area) (cm) 12 -Tunneling No -Undermining/Tunneling No -Circular Undermining No -Wound/Ulcer Outcome Not Healed -Ulcer Cleansing Rinsed/ Irrigated with Saline -Foul Odor after Cleansing No -Bioengineered Tissue No -Bleeding Controlled with Pressure -Treatment Response Procedure Tolerated Well -Offloading No -Debridement - Subq, 1st 20sq cm No #13- R LAT CALF -Time 14:16 -Correct Patient Yes -Correct Side, Site, Position Yes -Correct Procedure Yes -Procedure Performed Yes -Type of Procedure Debridement -Clinical Debridement Subcutaneous -Tissue Removed Subcutaneous -Post Debridement (cm) - Length 4.8 -Post Debridement (cm) - Width 1.3 -Post Debridement (cm) - Depth 0.1 -Total Square (Post) (cm) 6.24 -Area of Debridement (cm) - Length 4.8 -Area of Debridement (cm) - Width 1.3 -Total Square (Area) (cm) 6.24 -Tunneling No -Undermining/Tunneling No -Circular Undermining No -Wound/Ulcer Outcome Not Healed -Ulcer Cleansing Rinsed/ Irrigated with Saline -Foul Odor after Cleansing No -Bioengineered Tissue No -Bleeding Controlled with Pressure -Treatment Response Procedure Tolerated Well -Offloading No -Debridement - Subq, 1st 20sq cm Yes Pain Scale: 0-10 Numeric Is Patient Pain Free? Yes Assessment/Plan Assessment/Plan (1) Non-pressure chronic ulcer of right ankle with fat layer exposed: CODE(S): L97.312 - Non-pressure chronic ulcer of right ankle with fat layer exposed PLAN: Patient was examined and evaluated. All findings were discussed with the patient. All questions were answered to the patient's satisfaction. Excisional debridement down to including subcutaneous tissue of the right lateral posterior ankle with a number 5 mm dermal curette done without incident. Predebridement measurement was 4.7 x 1.2 x 0.1 cm. Postdebridement measurement 4.8 x 1.3 x 0.1 cm. Excisional debridement down to and including subcutaneous tissue of the right medial posterior ankle wound with a number 5 mm dermal curette done without incident. Predebridement measurement was 3.8 x 2.8 x 0.1 cm. Postdebridement measurement is 4.0 x 3.0 x 0.1 cm. The right lower extremities are painted pat dry. Silver alginate followed by 3M multilayer compression wrap was donned to the right lower extremity. The patient will follow-up next Sunday for nursing visit and 3M multilayer compression wrap change. We will begin to authorize for amnion skin graft substitute to right lower extremity posterior legs after 2 weeks completing 4 weeks of outpatient conservative wound care treatment. Follow-up at the wound care center with Dr. Sylvester in 1 week. (2) Other specified peripheral vascular diseases: CODE(S): I73.89 - Other specified peripheral vascular diseases
[2024-12-31 14:46] VITALS: BP 165/58; PULSE 67; RESP 18; TEMP 36.2
--- NOTE | 2024-12-31 15:10 | PCM.WC.PN ---
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 She has been doing dressing changes. There is improvement to the wound. No drainage sign of infection Progress of Wound: Stable full-thickness wounds to the medial and lateral right ankle/calf area. Subjective Subjective Patient is 84-year-old female presenting with her son for follow-up evaluation of full-thickness wound to the posterior right leg. Patient has left her dressing clean dry and intact. She denies any breakdown of skin to left leg. She does admit following to the left lower extremity. Overall she is doing well. Denies trauma. Denies constitutional symptoms. No other pedal complaints at this time. Objective Data Objective Data Vital Signs: Vital Signs Temp Pulse Resp BP O2 Del Method 97.2 F L 67 18 165/58 H Room Air 12/31/24 14:46 12/31/24 14:46 12/31/24 14:46 12/31/24 14:46 12/31/24 14:46 Oxygen Delivery Method Room Air Physical Exam Narrative Vascular: DP and PT pulses are palpable to bilateral extremity. CFT is brisk. Nonpitting edema appreciated to bilateral lower extremity. No erythema to the posterior right leg. Skin temperature is warm to warm from proximal ankles to distal digit bilateral. Neurological: Light touch intact. Patient does respond to painful stimuli. Dermatological: The right lateral wound measures 4.6 x 0.7 x 0.1 cm. The right medial wound measures 3.5 x 1.7 x 0.1 cm. Both wound bases are granular nature with no drainage or sign of infection. Excisional debridement down to including subcutaneous tissue of the right lateral posterior ankle with a number 5 mm dermal curette done without incident. Predebridement measurement was 4.4 x 0.5 x 0.1 cm. Postdebridement measurement 4.6 x 0.7 x 0.1 cm. Excisional debridement down to and including subcutaneous tissue of the right medial posterior ankle wound with a number 5 mm dermal curette done without incident. Predebridement measurement was 3.3 x 1.5 x 0.1 cm. Postdebridement measurement is 3.5 x 1.7 x 0.1 cm Musculoskeletal: Mild pain on palpation to both full-thickness ulceration. No pain with calf compression. Debridement Note Debridement Note Debridement Free Text: Excisional debridement down to including subcutaneous tissue of the right lateral posterior ankle with a number 5 mm dermal curette done without incident. Predebridement measurement was 4.4 x 0.5 x 0.1 cm. Postdebridement measurement 4.6 x 0.7 x 0.1 cm. Excisional debridement down to and including subcutaneous tissue of the right medial posterior ankle wound with a number 5 mm dermal curette done without incident. Predebridement measurement was 3.3 x 1.5 x 0.1 cm. Postdebridement measurement is 3.5 x 1.7 x 0.1 cm Post-Debridement Measurements and Additional Note: Post-Debridement Measurements/Treatment WC - Nurse 1 - General Ulcer Assessment Start: 12/24/24 13:55 Freq: Status: Active Protocol: [email or web address] Activity Type Activity Date Activity User E-sign Co-sign Detail Recorded Client Recorded Date Recorded By Document 12/24/24 13:55 DL [id number] 12/24/24 14:05 DL Edit Result 12/24/24 13:55 DL (1) [id number] 12/24/24 14:09 DL Document 12/31/24 14:46 KW [id number] 12/31/24 14:52 KW (1) Blood Pressure (90/60-120/80) 179/91 H => 153/82 H Blood Pressure Mean (mm Hg) 120 => 105 12/24/24 12/31/24 13:55 14:46 - Today's Visit Information Type of service Follow-up Visit Follow-up Visit (Physician/WAREHOUSE HANDLER (Physician/WAREHOUSE HANDLER ) ) Arrival Mode Ambulatory, Ambulatory, Walker Walker Transfer Assistance Manual Transfer Assist (Other) x1 Patient Identification Verified (Name & Yes Yes ) Vital Signs Temperature (97.8 F-99.1 F) 99 F 97.2 F L Temperature Source Temporal Temporal Pulse Rate (60-100) 71 67 Pulse Location Monitor Monitor Respiratory Rate (12-18) 18 18 Respiratory rate source Observation Observation Oxygen Delivery Method Room Air Blood Pressure (90/60-120/80) 153/82 H 165/58 H Blood Pressure Mean (mm Hg) 105 93 Source Monitor Monitor Position Semi-Fowlers Blood Pressure Location Left Arm History Since Last Visit- (Skip if this is Patient's initial visit) Have you changed medications since your No No last visit? Any new allergies or adverse reactions No No Had a fall/change in ADL's that may No No increase risk of falls Signs or symptoms of abuse and/or No No neglect since last visit Have you been in the hospital since your No No last visit? Has dressing in place as prescribed Yes Yes Has compression in place as prescribed Yes Yes Has offloadiing in place as prescribed N/A N/A Experienced any changes in pain level or No No management Left Footwear No Footwear Right Footwear Surgical Shoe No Footwear with pressure relief insole Pain Scale: 0-10 Numeric Is Patient Pain Free? Yes Yes WC - Nurse 1 - General Ulcer Measurement Start: 12/24/24 13:55 Freq: Status: Active Protocol: Activity Type Activity Date Activity User E-sign Co-sign Detail Recorded Client Recorded Date Recorded By Document 12/24/24 13:55 DL [id number] 12/24/24 14:05 DL Document 12/31/24 14:46 KW [id number] 12/31/24 14:52 KW 12/24/24 12/31/24 13:55 14:46 Wound Center Nurse 1 #14- R MEDIAL CALF -Current Size (cm) - Length 4 4 -Current Size (cm) - Width 3.6 4 -Current Size (cm) - Depth 0.1 0.1 -Total Square Cm 14.4 16 -Date of Last Picture (Recall this 12/31/24 field) -Exudate Amt Medium Large -Exudate Type Serosanguineous Serosanguineous -Wound Margin Distinct, Distinct, Outline Outline Attached Attached -Granulation Amt Medium (34-66%) Small (1-33%) -Granulation Quality Red -Necrosis Amt Medium (34-66%) Large (67-100%) -Necrotic Tissue Type Adherent Slough Adherent Slough -Structure Exposed N/A -Texture (Maryann-wound Skin Appearance) Localized Edema Assessed ,Scarring -Moisture (Maryann-wound Skin Appearance) Dry/Scaly Assessed -Color (Maryann-wound Skin Appearance) Hemosiderin Assessed, Staining Erythema -Temperature (Maryann-wound Skin No Abnormality No Abnormality Appearance) (Pt Warm) (Pt Warm) -Tenderness on Palpation (Maryann-wound No Skin Appearance) -Ulcer Cleansing Soap and Water Soap and Water -Foul Odor after Cleansing No No -Anesthetic Used 5% Lidocaine 5% Lidocaine Gel Gel #13- R LAT CALF -Current Size (cm) - Length 5 4 -Current Size (cm) - Width 1.4 1 -Current Size (cm) - Depth 0.1 0.1 -Total Square Cm 7.0 4 -Date of Last Picture (Recall this 12/31/24 field) -Exudate Amt Medium Large -Exudate Type Serosanguineous Serosanguineous -Wound Margin Distinct, Distinct, Outline Outline Attached Attached -Granulation Amt Medium (34-66%) Large (67-100%) -Granulation Quality [place] Red -Necrosis Amt Medium (34-66%) Small (1-33%) -Necrotic Tissue Type Adherent Slough Adherent Slough -Structure Exposed N/A -Texture (Maryann-wound Skin Appearance) Localized Edema Assessed ,Scarring -Moisture (Maryann-wound Skin Appearance) Dry/Scaly Assessed -Color (Mrayann-wound Skin Appearance) Hemosiderin Assessed Staining -Temperature (Maryann-wound Skin No Abnormality No Abnormality Appearance) (Pt Warm) (Pt Warm) -Tenderness on Palpation (Maryann-wound No No Skin Appearance) -Ulcer Cleansing Soap and Water Soap and Water -Foul Odor after Cleansing No No -Anesthetic Used 5% Lidocaine 5% Lidocaine Gel Gel Right Calf (cm) 43.3 36 Right Ankle (cm) 22.6 22 Left Calf (cm) 41 Left Ankle (cm) 23.5 WC - Nurse 2 - General Ulcer CM Notes Start: 12/24/24 13:55 Freq: Status: Active Protocol: Activity Type Activity Date Activity User E-sign Co-sign Detail Recorded Client Recorded Date Recorded By Document 12/24/24 14:15 [id number] 12/24/24 14:16 Document 12/31/24 15:06 JF [id number] 12/31/24 15:09 12/24/24 12/31/24 14:15 15:06 Wound Center Nurse 2 #14- R MEDIAL CALF -Time 14:15 15:08 -Correct Patient Yes Yes -Correct Side, Site, Position Yes Yes -Correct Procedure Yes Yes -Procedure Performed Yes Yes -Type of Procedure Debridement Debridement -Clinical Debridement Subcutaneous Subcutaneous -Tissue Removed Subcutaneous Subcutaneous -Post Debridement (cm) - Length 4 3.5 -Post Debridement (cm) - Width 3 1.7 -Post Debridement (cm) - Depth 0.1 0.1 -Total Square (Post) (cm) 12 5.95 -Area of Debridement (cm) - Length 4 3.5 -Area of Debridement (cm) - Width 3 1.7 -Total Square (Area) (cm) 12 5.95 -Tunneling No No -Undermining/Tunneling No No -Circular Undermining No No -Wound/Ulcer Outcome Not Healed Not Healed -Ulcer Cleansing Rinsed/ Rinsed/ Irrigated with Irrigated with Saline Saline -Foul Odor after Cleansing No No -Bioengineered Tissue No No -Bleeding Controlled with Pressure Pressure -Treatment Response Procedure Procedure Tolerated Well Tolerated Well -Offloading No No -Debridement - Subq, 1st 20sq cm No No #13- R LAT CALF -Time 14:16 15:08 -Correct Patient Yes Yes -Correct Side, Site, Position Yes Yes -Correct Procedure Yes Yes -Procedure Performed Yes Yes -Type of Procedure Debridement Debridement -Clinical Debridement Subcutaneous Subcutaneous -Tissue Removed Subcutaneous Subcutaneous -Post Debridement (cm) - Length 4.8 4.6 -Post Debridement (cm) - Width 1.3 0.7 -Post Debridement (cm) - Depth 0.1 0.1 -Total Square (Post) (cm) 6.24 3.22 -Area of Debridement (cm) - Length 4.8 4.6 -Area of Debridement (cm) - Width 1.3 0.7 -Total Square (Area) (cm) 6.24 3.22 -Tunneling No No -Undermining/Tunneling No No -Circular Undermining No No -Wound/Ulcer Outcome Not Healed Not Healed -Ulcer Cleansing Rinsed/ Rinsed/ Irrigated with Irrigated with Saline Saline -Foul Odor after Cleansing No No -Bioengineered Tissue No No -Bleeding Controlled with Pressure Pressure -Treatment Response Procedure Procedure Tolerated Well Tolerated Well -Offloading No No -Debridement - Subq, 1st 20sq cm Yes Yes Pain Scale: 0-10 Numeric Is Patient Pain Free? Yes Yes - Nurse 3 - General Ulcer D/C NN Start: 12/24/24 13:55 Freq: Status: Active Protocol: Activity Type Activity Date Activity User E-sign Co-sign Detail Recorded Client Recorded Date Recorded By Document 12/24/24 14:22 [id number] 12/24/24 14:23 GM 12/24/24 14:22 Wound Care Center Nurse 3 #14- R MEDIAL CALF -Ulcer Cleansing Not Cleansed -Foul Odor after Cleansing No -Primary Dressing Applied [place] -Primary Dressing Covered/Secured with Secured with Tape,Other -Other Covering abd pad -[place] 1 #13- R LAT CALF -Ulcer Cleansing Not Cleansed -Foul Odor after Cleansing No -Primary Dressing Covered/Secured with Secured with Tape -Other Covering abd RLE -Multi-Layered Wrap Application Multi-Layer Comp - Right ($ ) -Multi-Layer Compression Right (Qty 1 applied) Pain Scale: 0-10 Numeric Is Patient Pain Free? Yes WC - Visit Discharge Discharge Condition Stable Ambulatory Status Ambulatory, Walker Transportation Private Auto Assessment/Plan Assessment/Plan (1) Non-pressure chronic ulcer of right ankle with fat layer exposed: CODE(S): L97.312 - Non-pressure chronic ulcer of right ankle with fat layer exposed PLAN: Patient was examined and evaluated. All findings were discussed with the patient. All questions were answered to the patient's satisfaction. Excisional debridement down to including subcutaneous tissue of the right lateral posterior ankle with a number 5 mm dermal curette done without incident. Predebridement measurement was 4.4 x 0.5 x 0.1 cm. Postdebridement measurement 4.6 x 0.7 x 0.1 cm. Excisional debridement down to and including subcutaneous tissue of the right medial posterior ankle wound with a number 5 mm dermal curette done without incident. Predebridement measurement was 3.3 x 1.5 x 0.1 cm. Postdebridement measurement is 3.5 x 1.7 x 0.1 cm The right lower extremities are cleaned and patted dry. The area was dressed with silver alginate dry sterile dressing and multilayer compression was down to the right and left lower extremity. Patient will follow-up on Sunday versus Sunday for nurse visit/dressing change. Follow-up at the wound care center with Dr. Sylvester in 1 week. (2) Other specified peripheral vascular diseases: CODE(S): I73.89 - Other specified peripheral vascular diseases
--- NOTE | 2025-01-01 10:01 | WC ---
PHOTO-RIGHT POST LEG 12/31/24
[2025-01-07 13:05] VITALS: BP 167/59; PULSE 72; RESP 16; TEMP 36.6
--- NOTE | 2025-01-07 14:27 | PN.PCM_ITS ---
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 She has been doing dressing changes. There is improvement to the wound. No drainage sign of infection Progress of Wound: Stable full-thickness wounds to the medial and lateral right ankle/calf area. Subjective Subjective Patient is a 84-year-old female presenting to wound care center today for follow-up evaluation of posterior full-thickness wounds to medial lateral calf area of the right lower extremity. She has been compliant with her multilayer compression bandage to by the lower extremity and has left them clean dry and intact. Patient states that she does not know what happened to her shoes at her facility and is using nonslip socks to ambulate. She continues to rest and elevate as discussed. She denies trauma. Denies constitutional symptoms. No other pedal complaints at this time. Objective Data Objective Data Vital Signs: Vital Signs Temp Pulse Resp BP O2 Del Method 98 F 72 16 167/59 H Room Air 01/07/25 13:05 01/07/25 13:05 01/07/25 13:05 01/07/25 13:05 12/31/24 14:46 Oxygen Delivery Method Room Air Physical Exam Narrative Vascular: DP and PT pulses are palpable to bilateral extremity. CFT is brisk. Nonpitting edema appreciated to bilateral lower extremity. No erythema to the posterior right leg. Skin temperature is warm to warm from proximal ankles to distal digit bilateral. Neurological: Light touch intact. Patient does respond to painful stimuli. Dermatological: The right lateral wound measures 1.9 x 0.5 x 0.1 cm the right medial wound measures 2.5 x 0.6 x 0.1 cm. Both wound bases are granular nature with no drainage or sign of infection. Excisional debridement down to including subcutaneous tissue of the right lateral posterior ankle with a number 5 mm dermal curette done without incident. Predebridement measurement was 0.6 x 0.4 x 0.1 cm. Postdebridement measurement 1.9 x 0.5 x 0.1 cm. Excisional debridement down to and including subcutaneous tissue of the right medial posterior ankle wound with a number 5 mm dermal curette done without incident. Predebridement measurement was 2.4 x 0.5 x 0.1 cm. Postdebridement measurement is 2.5 x 0.6 x 0.1 cm. Musculoskeletal: No pain on palpation to both full-thickness ulceration. No pain with calf compression. Debridement Note Debridement Note Debridement Free Text: Excisional debridement down to including subcutaneous tissue of the right lateral posterior ankle with a number 5 mm dermal curette done without incident. Predebridement measurement was 0.6 x 0.4 x 0.1 cm. Postdebridement measurement 1.9 x 0.5 x 0.1 cm. Excisional debridement down to and including subcutaneous tissue of the right medial posterior ankle wound with a number 5 mm dermal curette done without incident. Predebridement measurement was 2.4 x 0.5 x 0.1 cm. Postdebridement measurement is 2.5 x 0.6 x 0.1 cm. Post-Debridement Measurements and Additional Note: Post-Debridement Measurements/Treatment - Nurse 1 - General Ulcer Assessment Start: 12/24/24 13:55 Freq: Status: Active Protocol: STACIA Activity Type Activity Date Activity User E-sign Co-sign Detail Recorded Client Recorded Date Recorded By Document 12/24/24 13:55 DL [id number] 12/24/24 14:05 DL Edit Result 12/24/24 13:55 DL (1) [id number] 12/24/24 14:09 DL Document 12/31/24 14:46 KW [id number] 12/31/24 14:52 KW Document 01/07/25 13:05 DL [id number] 01/07/25 13:20 DL (1) Blood Pressure (90/60-120/80) 179/91 H => 153/82 H Blood Pressure Mean (mm Hg) 120 => 105 12/24/24 12/31/24 01/07/25 13:55 14:46 13:05 - Today's Visit Information Type of service Follow-up Visit Follow-up Visit Follow-up Visit (Physician/NETWORK SYSTEMS CONSULTANT (Physician/NETWORK SYSTEMS CONSULTANT (Physician/NETWORK SYSTEMS CONSULTANT ) ) ) Arrival Mode Ambulatory, Ambulatory, Ambulatory Walker Walker Transfer Assistance Manual Manual Transfer Assist (Other) x1 x1 Patient Identification Verified (Name & Yes Yes Yes ) Patient Requires Transmission-Based No Precautions Vital Signs Temperature (97.8 F-99.1 F) 99 F 97.2 F L 98 F Temperature Source Temporal Temporal Oral Pulse Rate (60-100) 71 67 72 Pulse Location Monitor Monitor Monitor Respiratory Rate (12-18) 18 18 16 Respiratory rate source Observation Observation Observation Oxygen Delivery Method Room Air Blood Pressure (90/60-120/80) 153/82 H 165/58 H 167/59 H Blood Pressure Mean (mm Hg) 105 93 95 Source Monitor Monitor Monitor Position Semi-Fowlers Blood Pressure Location Left Arm History Since Last Visit- (Skip if this is Patient's initial visit) Have you changed medications since your No No No last visit? Any new allergies or adverse reactions No No No Had a fall/change in ADL's that may No No No increase risk of falls Signs or symptoms of abuse and/or No No No neglect since last visit Have you been in the hospital since your No No No last visit? Has dressing in place as prescribed Yes Yes Yes Has compression in place as prescribed Yes Yes Yes Has offloadiing in place as prescribed N/A N/A N/A Experienced any changes in pain level or No No No management Left Footwear No Footwear Right Footwear Surgical Shoe No Footwear with pressure relief insole Pain Scale: 0-10 Numeric Is Patient Pain Free? Yes Yes Yes WC - Nurse 1 - General Ulcer Measurement Start: 12/24/24 13:55 Freq: Status: Active Protocol: Activity Type Activity Date Activity User E-sign Co-sign Detail Recorded Client Recorded Date Recorded By Document 12/24/24 13:55 DL [id number] 12/24/24 14:05 DL Document 12/31/24 14:46 KW [id number] 12/31/24 14:52 KW Document 01/07/25 13:05 DL [id number] 01/07/25 13:20 DL 12/24/24 12/31/24 01/07/25 13:55 14:46 13:05 Wound Center Nurse 1 #14- R MEDIAL CALF -Current Size (cm) - Length 4 4 2.5 -Current Size (cm) - Width 3.6 4 0.6 -Current Size (cm) - Depth 0.1 0.1 0.1 -Total Square Cm 14.4 16 1.50 -Date of Last Picture (Recall this 12/31/24 field) -Exudate Amt Medium Large Small -Exudate Type Serosanguineous Serosanguineous Serosanguineous -Wound Margin Distinct, Distinct, Distinct, Outline Outline Outline Attached Attached Attached -Granulation Amt Medium (34-66%) Small (1-33%) Large (67-100%) -Granulation Quality Red [place] -Necrosis Amt Medium (34-66%) Large (67-100%) None Present (0 %) -Necrotic Tissue Type Adherent Slough Adherent Slough -Structure Exposed N/A N/A -Texture (Maryann-wound Skin Appearance) Localized Edema Assessed Scarring ,Scarring -Moisture (Maryann-wound Skin Appearance) Dry/Scaly Assessed No Abnormality -Color (Maryann-wound Skin Appearance) Hemosiderin Assessed, No Abnormality Staining Erythema -Temperature (Maryann-wound Skin No Abnormality No Abnormality No Abnormality Appearance) (Pt Warm) (Pt Warm) (Pt Warm) -Tenderness on Palpation (Maryann-wound No Skin Appearance) -Ulcer Cleansing Soap and Water Soap and Water Soap and Water -Foul Odor after Cleansing No No No -Anesthetic Used 5% Lidocaine 5% Lidocaine 5% Lidocaine Gel Gel Gel #13- R LAT CALF -Current Size (cm) - Length 5 4 0.5 -Current Size (cm) - Width 1.4 1 0.5 -Current Size (cm) - Depth 0.1 0.1 0.1 -Total Square Cm 7.0 4 0.25 -Date of Last Picture (Recall this 12/31/24 field) -Exudate Amt Medium Large Small -Exudate Type Serosanguineous Serosanguineous -Wound Margin Distinct, Distinct, Flat & Intact Outline Outline Attached Attached -Granulation Amt Medium (34-66%) Large (67-100%) Small (1-33%) -Granulation Quality [place] -Necrosis Amt Medium (34-66%) Small (1-33%) None Present (0 %) -Necrotic Tissue Type Adherent Slough Adherent Slough -Structure Exposed N/A N/A -Texture (Maryann-wound Skin Appearance) Localized Edema Assessed Scarring ,Scarring -Moisture (Maryann-wound Skin Appearance) Dry/Scaly Assessed No Abnormality -Color (Maryann-wound Skin Appearance) Hemosiderin Assessed No Abnormality Staining -Temperature (Maryann-wound Skin No Abnormality No Abnormality No Abnormality Appearance) (Pt Warm) (Pt Warm) (Pt Warm) -Tenderness on Palpation (Maryann-wound No No Skin Appearance) -Ulcer Cleansing Soap and Water Soap and Water Soap and Water -Foul Odor after Cleansing No No No -Anesthetic Used 5% Lidocaine 5% Lidocaine 5% Lidocaine Gel Gel Gel Right Calf (cm) 43.3 36 36 Right Ankle (cm) 22.6 22 21 Left Calf (cm) 41 37.3 Left Ankle (cm) 23.5 21.8 WC - Nurse 2 - General Ulcer CM Notes Start: 12/24/24 13:55 Freq: Status: Active Protocol: Activity Type Activity Date Activity User E-sign Co-sign Detail Recorded Client Recorded Date Recorded By Document 12/24/24 14:15 JF [id number] 12/24/24 14:16 JF Document 12/31/24 15:06 JF [id number] 12/31/24 15:09 JF Document 01/07/25 13:46 DS [id number] 01/07/25 13:48 DS 12/24/24 12/31/24 01/07/25 14:15 15:06 13:46 Wound Center Nurse 2 #14- R MEDIAL CALF -Time 14:15 15:08 13:47 -Correct Patient Yes Yes Yes -Correct Side, Site, Position Yes Yes Yes -Correct Procedure Yes Yes Yes -Procedure Performed Yes Yes Yes -Type of Procedure Debridement Debridement Debridement -Clinical Debridement Subcutaneous Subcutaneous Subcutaneous -Tissue Removed Subcutaneous Subcutaneous Subcutaneous -Post Debridement (cm) - Length 4 3.5 2.5 -Post Debridement (cm) - Width 3 1.7 0.6 -Post Debridement (cm) - Depth 0.1 0.1 0.1 -Total Square (Post) (cm) 12 5.95 1.50 -Area of Debridement (cm) - Length 4 3.5 2.5 -Area of Debridement (cm) - Width 3 1.7 0.6 -Total Square (Area) (cm) 12 5.95 1.50 -Tunneling No No No -Undermining/Tunneling No No No -Circular Undermining No No No -Wound/Ulcer Outcome Not Healed Not Healed Not Healed -Ulcer Cleansing Rinsed/ Rinsed/ Rinsed/ Irrigated with Irrigated with Irrigated with Saline Saline Saline -Foul Odor after Cleansing No No No -Bioengineered Tissue No No No -Bleeding Controlled with Pressure Pressure Pressure -Treatment Response Procedure Procedure Procedure Tolerated Well Tolerated Well Tolerated Well -Offloading No No -Debridement - Subq, 1st 20sq cm No No Yes #13- R LAT CALF -Time 14:16 15:08 13:47 -Correct Patient Yes Yes Yes -Correct Side, Site, Position Yes Yes Yes -Correct Procedure Yes Yes Yes -Procedure Performed Yes Yes Yes -Type of Procedure Debridement Debridement Debridement -Clinical Debridement Subcutaneous Subcutaneous Subcutaneous -Tissue Removed Subcutaneous Subcutaneous Subcutaneous -Post Debridement (cm) - Length 4.8 4.6 1.9 -Post Debridement (cm) - Width 1.3 0.7 0.5 -Post Debridement (cm) - Depth 0.1 0.1 0.1 -Total Square (Post) (cm) 6.24 3.22 0.95 -Area of Debridement (cm) - Length 4.8 4.6 1.9 -Area of Debridement (cm) - Width 1.3 0.7 0.5 -Total Square (Area) (cm) 6.24 3.22 0.95 -Tunneling No No No -Undermining/Tunneling No No No -Circular Undermining No No No -Wound/Ulcer Outcome Not Healed Not Healed Not Healed -Ulcer Cleansing Rinsed/ Rinsed/ Rinsed/ Irrigated with Irrigated with Irrigated with Saline Saline Saline -Foul Odor after Cleansing No No No -Bioengineered Tissue No No No -Bleeding Controlled with Pressure Pressure Pressure -Treatment Response Procedure Procedure Procedure Tolerated Well Tolerated Well Tolerated Well -Offloading No No -Debridement - Subq, 1st 20sq cm Yes Yes No Pain Scale: 0-10 Numeric Is Patient Pain Free? Yes Yes Yes WC - Nurse 3 - General Ulcer D/C NN Start: 12/24/24 13:55 Freq: Status: Active Protocol: Activity Type Activity Date Activity User E-sign Co-sign Detail Recorded Client Recorded Date Recorded By Document 12/24/24 14:22 [id number] 12/24/24 14:23 Document 12/31/24 15:16 [id number] 12/31/24 15:18 GM Document 01/07/25 14:05 DL [id number] 01/07/25 14:07 DL 12/24/24 12/31/24 01/07/25 14:22 15:16 14:05 Wound Care Center Nurse 3 #14- R MEDIAL CALF -Ulcer Cleansing Not Cleansed Not Cleansed Rinsed/ Irrigated with Saline -Foul Odor after Cleansing No No No -Negative Pressure Wound Therapy N/A -Primary Dressing Applied Silvercel Silvercel Silvercel -Primary Dressing Covered/Secured with Secured with Dry Gauze & Dry Gauze & Tape,Other Roll Gauze, Roll Gauze Secured with Tape -Other Covering abd pad 3M -Silvercel 1 1 1 #13- R LAT CALF -Ulcer Cleansing Not Cleansed Not Cleansed Rinsed/ Irrigated with Saline -Foul Odor after Cleansing No No No -Negative Pressure Wound Therapy N/A -Primary Dressing Applied Other -Other Dressing used other half silvercell of silvercel -Primary Dressing Covered/Secured with Secured with Dry Gauze Dry Gauze & Tape Roll Gauze, Secured with Tape -Other Covering abd 3M BLE -Multi-Layered Wrap Application Multi-Layer Comp - Bilat ($ ) -Multi-Layer Compression Bilat (Qty 1 applied) RLE -Lotion applied to leg before No compression wrap -Multi-Layered Wrap Application Multi-Layer Multi-Layer Comp - Right ($ Comp - Right ($ ) ) -Multi-Layer Compression Right (Qty 1 1 applied) Treatment Response Procedure Tolerated Well Pain Scale: 0-10 Numeric Is Patient Pain Free? Yes Yes Yes WC - Visit Discharge Discharge Condition Stable Stable Stable Ambulatory Status Ambulatory, Ambulatory, Ambulatory, Walker Walker Walker Transportation Private Auto Private Auto Private Auto Facility Type [facility] Facility Orders Sent Yes Assessment/Plan Assessment/Plan (1) Non-pressure chronic ulcer of right ankle with fat layer exposed: CODE(S): L97.312 - Non-pressure chronic ulcer of right ankle with fat layer exposed PLAN: Patient was examined and evaluated. All findings were discussed with the patient. All questions were answered to the patient's satisfaction. Excisional debridement down to including subcutaneous tissue of the right lateral posterior ankle with a number 5 mm dermal curette done without incident. Predebridement measurement was 0.6 x 0.4 x 0.1 cm. Postdebridement measurement 1.9 x 0.5 x 0.1 cm. Excisional debridement down to and including subcutaneous tissue of the right medial posterior ankle wound with a number 5 mm dermal curette done without incident. Predebridement measurement was 2.4 x 0.5 x 0.1 cm. Postdebridement measurement is 2.5 x 0.6 x 0.1 cm. The right lower extremities are cleaned and patted dry. The area was dressed with silver alginate dry sterile dressing and multilayer compression was down to the right and left lower extremity. Patient will follow-up on Sunday versus Sunday for nurse visit/dressing change. Follow-up at the wound care center with Dr. Sylvester in 1 week. (2) Other specified peripheral vascular diseases: CODE(S): I73.89 - Other specified peripheral vascular diseases
[2025-01-14 13:11] VITALS: BP 158/54; PULSE 61; RESP 18; TEMP 36.4
--- NOTE | 2025-01-14 13:23 | PCM.WC.PN ---
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 She has been doing dressing changes. There is improvement to the wound. No drainage sign of infection Progress of Wound: Stable full-thickness wounds to the medial and lateral right ankle/calf area. Subjective Subjective Patient is a 84-year-old female presenting to clinic today for follow-up evaluation of full-thickness wound to the right posterior calf/leg area. She has been compliant with leaving the multilayer compression bandages clean dry and intact. She is offloading and elevating as discussed. She denies any trauma. Denies constitutional symptoms. No other pedal complaints at this time. Objective Data Objective Data Vital Signs: Vital Signs Temp Pulse Resp BP O2 Del Method 97.6 F L 61 18 158/54 H Room Air 01/14/25 13:11 01/14/25 13:11 01/14/25 13:11 01/14/25 13:11 01/14/25 13:11 Oxygen Delivery Method Room Air Physical Exam Narrative Vascular: DP and PT pulses are palpable to bilateral extremity. CFT is brisk. Nonpitting edema appreciated to bilateral lower extremity. No erythema to the posterior right leg. Skin temperature is warm to warm from proximal ankles to distal digit bilateral. Neurological: Light touch intact. Patient does respond to painful stimuli. Dermatological: Right lateral leg full-thickness wound measures 3.0 x 1.0 x 0.1 cm. Wound base is granular with no sign of infection. Right medial leg full-thickness wound measures 2.0 x 0.5 x 0.1 cm. Wound base is granular with no sign of infection. Excisional debridement down to including subcutaneous tissue of the right lateral posterior ankle with a number 5 mm dermal curette done without incident. Predebridement measurement was 2.8 x 0.8 x 0.1 cm. Postdebridement measurement 3.0 x 1.0 x 0.1 cm. Excisional debridement down to and including subcutaneous tissue of the right medial posterior ankle wound with a number 5 mm dermal curette done without incident. Predebridement measurement was 1.8 x 0.4 x 0.1 cm. Postdebridement measurement is 2.0 x 0.5 x 0.1 cm. Musculoskeletal: No pain on palpation to both full-thickness ulceration. No pain with calf compression. Debridement Note Debridement Note Debridement Free Text: Excisional debridement down to including subcutaneous tissue of the right lateral posterior ankle with a number 5 mm dermal curette done without incident. Predebridement measurement was 2.8 x 0.8 x 0.1 cm. Postdebridement measurement 3.0 x 1.0 x 0.1 cm. Excisional debridement down to and including subcutaneous tissue of the right medial posterior ankle wound with a number 5 mm dermal curette done without incident. Predebridement measurement was 1.8 x 0.4 x 0.1 cm. Postdebridement measurement is 2.0 x 0.5 x 0.1 cm. Post-Debridement Measurements and Additional Note: Post-Debridement Measurements/Treatment - Nurse 1 - General Ulcer Assessment Start: 12/24/24 13:55 Freq: Status: Active Protocol: .LOWEXElza Activity Type Activity Date Activity User E-sign Co-sign Detail Recorded Client Recorded Date Recorded By Document 12/24/24 13:55 DL [id number] 12/24/24 14:05 DL Edit Result 12/24/24 13:55 DL (1) [id number] 12/24/24 14:09 DL Document 12/29/24 15:24 DL [id number] 01/07/25 15:24 DL Document 12/31/24 14:46 KW [id number] 12/31/24 14:52 KW Document 01/07/25 13:05 DL [id number] 01/07/25 13:20 DL Document 01/14/25 13:11 GM [id number] 01/14/25 13:17 GM (1) Blood Pressure (90/60-120/80) 179/91 H => 153/82 H Blood Pressure Mean (mm Hg) 120 => 105 12/24/24 12/29/24 12/31/24 13:55 15:24 14:46 - Today's Visit Information Type of service Follow-up Visit Nurse-only Follow-up Visit (Physician/FIRE SUPPORT MAN Visit (Physician/FIRE SUPPORT MAN ) ) Arrival Mode Ambulatory, Ambulatory, Ambulatory, Walker Walker Walker Transfer Assistance Manual Manual,None Transfer Assist (Other) x1 x1 Patient Identification Verified (Name & Yes Yes ) Patient Requires Transmission-Based Precautions Vital Signs Temperature (97.8 F-99.1 F) 99 F 97.2 F L Temperature Source Temporal Temporal Pulse Rate (60-100) 71 67 Pulse Location Monitor Monitor Respiratory Rate (12-18) 18 18 Respiratory rate source Observation Observation Oxygen Delivery Method Room Air Blood Pressure (90/60-120/80) 153/82 H 165/58 H Blood Pressure Mean (mm Hg) 105 93 Source Monitor Monitor Position Semi-Fowlers Blood Pressure Location Left Arm History Since Last Visit- (Skip if this is Patient's initial visit) Have you changed medications since your No No No last visit? Any new allergies or adverse reactions No No No Had a fall/change in ADL's that may No No No increase risk of falls Signs or symptoms of abuse and/or No No No neglect since last visit Have you been in the hospital since your No No No last visit? Has dressing in place as prescribed Yes Yes Yes Has compression in place as prescribed Yes Yes Yes Has offloadiing in place as prescribed N/A N/A N/A Experienced any changes in pain level or No No No management Left Footwear No Footwear Right Footwear Surgical Shoe No Footwear with pressure relief insole Pain Scale: 0-10 Numeric Is Patient Pain Free? Yes Yes Yes 01/07/25 01/14/25 13:05 13:11 WC - Today's Visit Information Type of service Follow-up Visit Follow-up Visit (Physician/FIRE SUPPORT MAN (Physician/FIRE SUPPORT MAN ) ) Arrival Mode Ambulatory Ambulatory, Walker Transfer Assistance Manual Manual Transfer Assist (Other) x1 Patient Identification Verified (Name & Yes Yes ) Patient Requires Transmission-Based No Precautions Vital Signs Temperature (97.8 F-99.1 F) 98 F 97.6 F L Temperature Source Oral Temporal Pulse Rate (60-100) 72 61 Pulse Location Monitor Monitor Respiratory Rate (12-18) 16 18 Respiratory rate source Observation Observation Oxygen Delivery Method Room Air Blood Pressure (90/60-120/80) 167/59 H 158/54 H Blood Pressure Mean (mm Hg) 95 88 Source Monitor Monitor Position Semi-Fowlers Blood Pressure Location Right Arm History Since Last Visit- (Skip if this is Patient's initial visit) Have you changed medications since your No No last visit? Any new allergies or adverse reactions No No Had a fall/change in ADL's that may No No increase risk of falls Signs or symptoms of abuse and/or No No neglect since last visit Have you been in the hospital since your No No last visit? Has dressing in place as prescribed Yes Yes Has compression in place as prescribed Yes Yes Has offloadiing in place as prescribed N/A N/A Experienced any changes in pain level or No No management Left Footwear Regular Shoe Right Footwear Regular Shoe Pain Scale: 0-10 Numeric Is Patient Pain Free? Yes Yes WC - Nurse 1 - General Ulcer Measurement Start: 12/24/24 13:55 Freq: Status: Active Protocol: Activity Type Activity Date Activity User E-sign Co-sign Detail Recorded Client Recorded Date Recorded By Document 12/24/24 13:55 DL [id number] 12/24/24 14:05 DL Document 12/31/24 14:46 KW [id number] 12/31/24 14:52 KW Document 01/07/25 13:05 DL [id number] 01/07/25 13:20 DL Document 01/14/25 13:11 GM [id number] 01/14/25 13:17 12/24/24 12/31/24 01/07/25 13:55 14:46 13:05 Wound Center Nurse 1 #14- R MEDIAL CALF -Current Size (cm) - Length 4 4 2.5 -Current Size (cm) - Width 3.6 4 0.6 -Current Size (cm) - Depth 0.1 0.1 0.1 -Total Square Cm 14.4 16 1.50 -Date of Last Picture (Recall this 12/31/24 field) -Photo Taken -Epithelialization -Tunneling -Undermining/Tunneling -Circular Undermining -Exudate Amt Medium Large Small -Exudate Type Serosanguineous Serosanguineous Serosanguineous -Wound Margin Distinct, Distinct, Distinct, Outline Outline Outline Attached Attached Attached -Granulation Amt Medium (34-66%) Small (1-33%) Large (67-100%) -Granulation Quality [place] -Slough/Fibrin -Necrosis Amt Medium (34-66%) Large (67-100%) None Present (0 %) -Necrotic Tissue Type Adherent Slough Adherent Slough -Structure Exposed N/A N/A -Texture (Maryann-wound Skin Appearance) Localized Edema Assessed Scarring ,Scarring -Moisture (Maryann-wound Skin Appearance) Dry/Scaly Assessed No Abnormality -Color (Maryann-wound Skin Appearance) Hemosiderin Assessed, No Abnormality Staining Erythema -Temperature (Maryann-wound Skin No Abnormality No Abnormality No Abnormality Appearance) (Pt Warm) (Pt Warm) (Pt Warm) -Tenderness on Palpation (Maryann-wound No Skin Appearance) -Ulcer Cleansing Soap and Water Soap and Water Soap and Water -Foul Odor after Cleansing No No No -Anesthetic Used 5% Lidocaine 5% Lidocaine 5% Lidocaine Gel Gel Gel #13- R LAT CALF -Current Size (cm) - Length 5 4 0.5 -Current Size (cm) - Width 1.4 1 0.5 -Current Size (cm) - Depth 0.1 0.1 0.1 -Total Square Cm 7.0 4 0.25 -Date of Last Picture (Recall this 12/31/24 field) -Photo Taken -Epithelialization -Tunneling -Undermining/Tunneling -Circular Undermining -Change in Wound Grade/Stage -Exudate Amt Medium Large Small -Exudate Type Serosanguineous Serosanguineous -Wound Margin Distinct, Distinct, Flat & Intact Outline Outline Attached Attached -Granulation Amt Medium (34-66%) Large (67-100%) Small (1-33%) -Granulation Quality [place] -Slough/Fibrin -Necrosis Amt Medium (34-66%) Small (1-33%) None Present (0 %) -Necrotic Tissue Type Adherent Slough Adherent Slough -Structure Exposed N/A N/A -Texture (Maryann-wound Skin Appearance) Localized Edema Assessed Scarring ,Scarring -Moisture (Maryann-wound Skin Appearance) Dry/Scaly Assessed No Abnormality -Color (Maryann-wound Skin Appearance) Hemosiderin Assessed No Abnormality Staining -Temperature (Maryann-wound Skin No Abnormality No Abnormality No Abnormality Appearance) (Pt Warm) (Pt Warm) (Pt Warm) -Tenderness on Palpation (Maryann-wound No No Skin Appearance) -Ulcer Cleansing Soap and Water Soap and Water Soap and Water -Foul Odor after Cleansing No No No -Anesthetic Used 5% Lidocaine 5% Lidocaine 5% Lidocaine Gel Gel Gel Right Calf (cm) 43.3 36 36 Right Ankle (cm) 22.6 22 21 Left Calf (cm) 41 37.3 Left Ankle (cm) 23.5 21.8 01/14/25 13:11 Wound Center Nurse 1 #14- R MEDIAL CALF -Current Size (cm) - Length 2.2 -Current Size (cm) - Width 0.6 -Current Size (cm) - Depth 0.1 -Total Square Cm 1.32 -Date of Last Picture (Recall this 01/14/25 field) -Photo Taken Yes -Epithelialization Small 1-33% -Tunneling No -Undermining/Tunneling No -Circular Undermining No -Exudate Amt Medium -Exudate Type Yellow/Green -Wound Margin Distinct, Outline Attached -Granulation Amt Medium (34-66%) -Granulation Quality [place] -Slough/Fibrin Yes -Necrosis Amt Medium (34-66%) -Necrotic Tissue Type Adherent Slough -Structure Exposed -Texture (Maryann-wound Skin Appearance) Assessed -Moisture (Maryann-wound Skin Appearance) Assessed -Color (Maryann-wound Skin Appearance) Assessed -Temperature (Maryann-wound Skin No Abnormality Appearance) (Pt Warm) -Tenderness on Palpation (Maryann-wound No Skin Appearance) -Ulcer Cleansing Soap and Water -Foul Odor after Cleansing No -Anesthetic Used 5% Lidocaine Gel #13- R LAT CALF -Current Size (cm) - Length 2.0 -Current Size (cm) - Width 0.7 -Current Size (cm) - Depth 0.1 -Total Square Cm 1.40 -Date of Last Picture (Recall this 01/14/25 field) -Photo Taken Yes -Epithelialization Small 1-33% -Tunneling No -Undermining/Tunneling No -Circular Undermining No -Change in Wound Grade/Stage No -Exudate Amt Medium -Exudate Type Yellow/Green -Wound Margin Distinct, Outline Attached -Granulation Amt Medium (34-66%) -Granulation Quality [place] -Slough/Fibrin Yes -Necrosis Amt Small (1-33%) -Necrotic Tissue Type Eschar -Structure Exposed -Texture (Maryann-wound Skin Appearance) Assessed -Moisture (Maryann-wound Skin Appearance) Assessed -Color (Maryann-wound Skin Appearance) Assessed -Temperature (Maryann-wound Skin No Abnormality Appearance) (Pt Warm) -Tenderness on Palpation (Maryann-wound Skin Appearance) -Ulcer Cleansing Soap and Water -Foul Odor after Cleansing No -Anesthetic Used 5% Lidocaine Gel Right Calf (cm) Right Ankle (cm) Left Calf (cm) Left Ankle (cm) WC - Nurse 2 - General Ulcer CM Notes Start: 12/24/24 13:55 Freq: Status: Active Protocol: Activity Type Activity Date Activity User E-sign Co-sign Detail Recorded Client Recorded Date Recorded By Document 12/24/24 14:15 JF [id number] 12/24/24 14:16 JF Document 12/31/24 15:06 JF [id number] 12/31/24 15:09 JF Document 01/07/25 13:46 DS [id number] 01/07/25 13:48 DS 12/24/24 12/31/24 01/07/25 14:15 15:06 13:46 Wound Center Nurse 2 #14- R MEDIAL CALF -Time 14:15 15:08 13:47 -Correct Patient Yes Yes Yes -Correct Side, Site, Position Yes Yes Yes -Correct Procedure Yes Yes Yes -Procedure Performed Yes Yes Yes -Type of Procedure Debridement Debridement Debridement -Clinical Debridement Subcutaneous Subcutaneous Subcutaneous -Tissue Removed Subcutaneous Subcutaneous Subcutaneous -Post Debridement (cm) - Length 4 3.5 2.5 -Post Debridement (cm) - Width 3 1.7 0.6 -Post Debridement (cm) - Depth 0.1 0.1 0.1 -Total Square (Post) (cm) 12 5.95 1.50 -Area of Debridement (cm) - Length 4 3.5 2.5 -Area of Debridement (cm) - Width 3 1.7 0.6 -Total Square (Area) (cm) 12 5.95 1.50 -Tunneling No No No -Undermining/Tunneling No No No -Circular Undermining No No No -Wound/Ulcer Outcome Not Healed Not Healed Not Healed -Ulcer Cleansing Rinsed/ Rinsed/ Rinsed/ Irrigated with Irrigated with Irrigated with Saline Saline Saline -Foul Odor after Cleansing No No No -Bioengineered Tissue No No No -Bleeding Controlled with Pressure Pressure Pressure -Treatment Response Procedure Procedure Procedure Tolerated Well Tolerated Well Tolerated Well -Offloading No No -Debridement - Subq, 1st 20sq cm No No Yes #13- R LAT CALF -Time 14:16 15:08 13:47 -Correct Patient Yes Yes Yes -Correct Side, Site, Position Yes Yes Yes -Correct Procedure Yes Yes Yes -Procedure Performed Yes Yes Yes -Type of Procedure Debridement Debridement Debridement -Clinical Debridement Subcutaneous Subcutaneous Subcutaneous -Tissue Removed Subcutaneous Subcutaneous Subcutaneous -Post Debridement (cm) - Length 4.8 4.6 1.9 -Post Debridement (cm) - Width 1.3 0.7 0.5 -Post Debridement (cm) - Depth 0.1 0.1 0.1 -Total Square (Post) (cm) 6.24 3.22 0.95 -Area of Debridement (cm) - Length 4.8 4.6 1.9 -Area of Debridement (cm) - Width 1.3 0.7 0.5 -Total Square (Area) (cm) 6.24 3.22 0.95 -Tunneling No No No -Undermining/Tunneling No No No -Circular Undermining No No No -Wound/Ulcer Outcome Not Healed Not Healed Not Healed -Ulcer Cleansing Rinsed/ Rinsed/ Rinsed/ Irrigated with Irrigated with Irrigated with Saline Saline Saline -Foul Odor after Cleansing No No No -Bioengineered Tissue No No No -Bleeding Controlled with Pressure Pressure Pressure -Treatment Response Procedure Procedure Procedure Tolerated Well Tolerated Well Tolerated Well -Offloading No No -Debridement - Subq, 1st 20sq cm Yes Yes No Pain Scale: 0-10 Numeric Is Patient Pain Free? Yes Yes Yes - Nurse 3 - General Ulcer D/C NN Start: 12/24/24 13:55 Freq: Status: Active Protocol: Activity Type Activity Date Activity User E-sign Co-sign Detail Recorded Client Recorded Date Recorded By Document 12/24/24 14:22 GM [id number] 12/24/24 14:23 GM Document 12/29/24 15:22 DL [id number] 01/07/25 15:24 DL Document 12/31/24 15:16 [id number] 12/31/24 15:18 GM Edit Result 12/31/24 15:16 GM (1) [id number] 01/08/25 15:55 Document 01/07/25 14:05 DL [id number] 01/07/25 14:07 DL (1) BLE - Lotion applied to leg before => No compression wrap - Multi-Layered Wrap Application => Multi-Layer Comp - => Right ($) - Multi-Layer Compression Right (Qty => 1 applied) RLE - Lotion applied to leg before No => compression wrap - Multi-Layered Wrap Application Multi-Layer Comp - => Right ($) => - Multi-Layer Compression Right (Qty 1 => applied) 12/24/24 12/29/24 12/31/24 14:22 15:22 15:16 Wound Care Center Nurse 3 #14- R MEDIAL CALF -Ulcer Cleansing Not Cleansed Soap and Water Not Cleansed -Foul Odor after Cleansing No No No -Negative Pressure Wound Therapy N/A -Primary Dressing Applied Silvercel Silvercel Silvercel -Primary Dressing Covered/Secured with Secured with Dry Gauze & Dry Gauze & Tape,Other Roll Gauze Roll Gauze, Secured with Tape -Other Covering abd pad 3m -Silvercel 1 1 1 #13- R LAT CALF -Ulcer Cleansing Not Cleansed Soap and Water Not Cleansed -Foul Odor after Cleansing No No No -Negative Pressure Wound Therapy N/A -Primary Dressing Applied Other -Other Dressing silvercell used other half of silvercel -Primary Dressing Covered/Secured with Secured with Dry Gauze & Dry Gauze Tape Roll Gauze -Other Covering abd BLE -Lotion applied to leg before No compression wrap -Multi-Layered Wrap Application Multi-Layer Multi-Layer Comp - Bilat ($ Comp - Right ($ ) ) -Multi-Layer Compression Right (Qty 1 applied) -Multi-Layer Compression Bilat (Qty 1 applied) RLE -Multi-Layered Wrap Application Multi-Layer Comp - Right ($ ) -Multi-Layer Compression Right (Qty 1 applied) Treatment Response Procedure Tolerated Well Pain Scale: 0-10 Numeric Is Patient Pain Free? Yes Yes Yes WC - Visit Discharge Discharge Condition Stable Stable Stable Ambulatory Status Ambulatory, Ambulatory, Ambulatory, Walker Walker Walker Transportation Private Auto Private Auto Private Auto Facility Type [facility] Orders Sent Yes 01/07/25 14:05 Wound Care Center Nurse 3 #14- R MEDIAL CALF -Ulcer Cleansing Rinsed/ Irrigated with Saline -Foul Odor after Cleansing No -Negative Pressure Wound Therapy -Primary Dressing Applied Silvercel -Primary Dressing Covered/Secured with Dry Gauze & Roll Gauze -Other Covering 3M -Silvercel 1 #13- R LAT CALF -Ulcer Cleansing Rinsed/ Irrigated with Saline -Foul Odor after Cleansing No -Negative Pressure Wound Therapy -Primary Dressing Applied -Other Dressing silvercell -Primary Dressing Covered/Secured with Dry Gauze & Roll Gauze, Secured with Tape -Other Covering 3M BLE -Lotion applied to leg before compression wrap -Multi-Layered Wrap Application Multi-Layer Comp - Bilat ($ ) -Multi-Layer Compression Right (Qty applied) -Multi-Layer Compression Bilat (Qty 1 applied) RLE -Multi-Layered Wrap Application -Multi-Layer Compression Right (Qty applied) Treatment Response Procedure Tolerated Well Pain Scale: 0-10 Numeric Is Patient Pain Free? Yes WC - Visit Discharge Discharge Condition Stable Ambulatory Status Ambulatory, Walker Transportation Private Auto Facility Type [facility] Orders Sent Yes Assessment/Plan Assessment/Plan (1) Non-pressure chronic ulcer of right ankle with fat layer exposed: CODE(S): L97.312 - Non-pressure chronic ulcer of right ankle with fat layer exposed PLAN: Patient was examined and evaluated. All findings were discussed with the patient. All questions were answered to the patient's satisfaction. Excisional debridement down to including subcutaneous tissue of the right lateral posterior ankle with a number 5 mm dermal curette done without incident. Predebridement measurement was 2.8 x 0.8 x 0.1 cm. Postdebridement measurement 3.0 x 1.0 x 0.1 cm. Excisional debridement down to and including subcutaneous tissue of the right medial posterior ankle wound with a number 5 mm dermal curette done without incident. Predebridement measurement was 1.8 x 0.4 x 0.1 cm. Postdebridement measurement is 2.0 x 0.5 x 0.1 cm. The right lower extremities are cleaned and patted dry. Silver alginate was applied to the full-thickness wound followed by dry sterile dressing and multilayer compression bandage to the bilateral lower extremity. She will leave clean dry and intact. We begin authorization the patient insurance as we have been conservatively treating the patient's full-thickness wounds for greater than 4 weeks. The amnion skin grafts will allow for accelerated healing and care for the patient to help decrease continued further breakdown of skin and infection to the right lower extremity. Follow-up at the wound care center with Dr. Sylvester in 1 week. (2) Other specified peripheral vascular diseases: CODE(S): I73.89 - Other specified peripheral vascular diseases
--- NOTE | 2025-01-15 08:14 | WC ---
PHOTO-RIGHT LATERAL 01/14/25
--- NOTE | 2025-01-15 08:41 | WC ---
PHOTO-RIGHT MED 01/14/25
== END 2025-01-18 23:59 | disposition home or self-care (01) ==
LOC: WC 13:00
PROVIDERS: PCP Family Medicine; Referring Provider Physician Assistant; Visit Provider Podiatrist Foot & Ankle Surgery
DX: L97.312 Non-pressure chronic ulcer of right ankle with fat layer exposed (principal); I73.89 Other specified peripheral vascular diseases; Z79.899 Other long term (current) drug therapy
CPT/HCPCS: 11042; 29581

== ENCOUNTER 2025-01-18 02:39 | Emergency (ER) | payer MEDICARE, SELFPAY ==
[2025-01-18 02:41] VITALS: BP 158/60; PULSE 55; RESP 16; TEMP 36.4; O2SAT 95; BMI 48.1
--- NOTE | 2025-01-18 03:00 | CT_ITS ---
PROCEDURE: SPINE CERVICAL WITHOUT CONTRAS 01/18/2025 REASON FOR EXAM: FALL TECHNIQUE: Procedure Code: CTSPC Modality: CT Procedure: SPINE CERVICAL WITHOUT CONTRAS Coronal and Sagittal reconstruction series were provided. One or more dose reduction techniques were used (e.g., Automated exposure control, adjustment of the mA and/or kV according to patient size, use of iterative reconstruction technique. RADIATION DOSE SUMMARY: CTDlvol: 16.3 mGy DLP: 586 mGycm COMPARISON: CT scan on 05/12/2024. FINDINGS: Grade 1 anterolisthesis of C3 on C4 measuring 4.6 mm. There are diffuse spondylotic changes. Findings are demonstrated to by diffuse disc space narrowing, osteophyte formation and degenerative endplate sclerosis. There is diffuse facet joint arthropathy with secondary bilateral neural foramina narrowing. No fracture or dislocation is seen. No aggressive lytic or blastic bony lesion is noted. Mild left mastoid effusion. CT/Spine Cervical without Contras IMPRESSION: No CT evidence of an acute bone abnormality. Reading Location[facility]
--- NOTE | 2025-01-18 03:00 | CT_ITS ---
PROCEDURE: BRAIN/HEAD WITHOUT CONTRAST 01/18/2025 REASON FOR EXAM: FALL, ON ELIQUIS TECHNIQUE: Procedure Code: CTBR Modality: CT Procedure: BRAIN/HEAD WITHOUT CONTRAST Coronal and Sagittal reconstruction series were provided. One or more dose reduction techniques were used (e.g., Automated exposure control, adjustment of the mA and/or kV according to patient size, use of iterative reconstruction technique. RADIATION DOSE SUMMARY: CTDlvol: 20.54 mGy DLP: 1149 mGycm COMPARISON: CT scan of the head on 05/12/2024. FINDINGS: CT SCAN OF THE BRAIN WITHOUT IV CONTRAST CLINICAL INDICATION: TECHNIQUE: Axial and reformatted sagittal and coronal images of the brain obtained without IV contrast administration. Normal size of the ventricles and extra-axial spaces for the patient's age. Normal white matter tracts of the supratentorial brain. Normal basal ganglia and thalami. Normal brainstem. Normal cerebellum. There is no demonstrated extra-axial, intraparenchymal, or intraventricular hemorrhage. There are no findings of an acute ischemic infarction. Normal calvarium. There is no demonstrated fracture. Left parietal acute subgaleal soft tissue hematoma. Normal visualized paranasal sinuses. CT/Brain/Head without Contrast IMPRESSION: Left parietal acute subgaleal soft tissue hematoma. No CT evidence of an acute traumatic abnormality in the brain. Reading Location: [place] [id number]
--- NOTE | 2025-01-18 03:40 | RAD_ITS ---
PROCEDURE: PELVIS 1 OR 2 VIEWS 01/18/2025 REASON FOR EXAM: FALL TECHNIQUE: Procedure Code: RADPEL Modality: DX Procedure: PELVIS 1 OR 2 VIEWS COMPARISON: None. FINDINGS: Mild osteopenia of the visualized bones. Degenerative joint disease. No fracture or dislocation is seen. No lytic or blastic bone lesion is noted. RAD/Pelvis 1 or 2 Views IMPRESSION: No evidence for acute abnormality. Reading Location: [facility]
--- NOTE | 2025-01-18 03:40 | RAD_ITS ---
PROCEDURE: FEMUR MIN 2 VIEWS 01/18/2025 REASON FOR EXAM: FALL, PAIN TECHNIQUE: Procedure Code: RADFEM Modality: DX Procedure: FEMUR MIN 2 VIEWS Laterality: LEFT COMPARISON: None. FINDINGS: Mild osteopenia of the visualized bones. Degenerative joint disease. No fracture or dislocation is seen. No lytic or blastic bone lesion is noted. RAD/Femur Min 2 Views IMPRESSION: No evidence for acute abnormality. Reading Location[facility]
--- NOTE | 2025-01-18 03:40 | RAD_ITS ---
PROCEDURE: FEMUR MIN 2 VIEWS 01/18/2025 REASON FOR EXAM: FALL TECHNIQUE: Procedure Code: RADFEM Modality: DX Procedure: FEMUR MIN 2 VIEWS Laterality: RIGHT. COMPARISON: NONE. FINDINGS: Mild osteopenia of the visualized bones. Degenerative joint disease. No fracture or dislocation is seen. No lytic or blastic bone lesion is noted. RAD/Femur Min 2 Views IMPRESSION: No evidence for acute abnormality. Reading Location: [facility]
--- NOTE | 2025-01-18 03:40 | RAD_ITS ---
PROCEDURE: KNEE 1 OR 2 VIEWS 01/18/2025 REASON FOR EXAM: FALL ,PAIN TECHNIQUE: Procedure Code: RADK Modality: DX Procedure: KNEE 1 OR 2 VIEWS Laterality: LEFT. COMPARISON: NONE. FINDINGS: Genu varum deformity. Mild osteopenia of the visualized bones. Degenerative joint disease. No fracture or dislocation is seen. No lytic or blastic bone lesion is noted. Mild suprapatellar knee joint effusion. Periarticular soft tissue edema and swelling. Enthesophyte formation at the upper pole of the patella. RAD/Knee 1 or 2 Views IMPRESSION: No evidence for acute abnormality. Reading Location: [facility]
--- NOTE | 2025-01-18 03:48 | EDS_ITS ---
HPI HPI - Fall History of Present Illness Chief Complaint: Fall Narrative Narrative: Patient is a 84-year-old female presenting to the emergency department after a fall. Patient is coming from [facility]. PMHX of dementia, lower extremity edema, PAD. She is on Eliquis. States that she was using her walker when she tripped on her pant leg and fell striking the left side of her head on a windowsill. She denies LOC. Denies any neck or back pain. Reports that she is having some pain in her upper thighs and left knee. Denies any pain in her hips. She has been able to ambulate since. [facility] Medical History Pressure ulcer of left buttock, stage 2 Pressure ulcer of right buttock, stage 2 Pressure injury of sacral region, stage 1 Cognitive communication disorder Muscle weakness Cellulitis and abscess of right leg HTN (hypertension) Glaucoma Dementia with psychotic disturbance Dementia Obesity CLL (chronic lymphocytic leukemia) Home Medications ?Medication ?Instructions ?Recorded ?Last Taken ?Type acetaminophen 325 mg tablet 650 mg PO Q6H PRN Pain Unknown History bisacodyl 10 mg rectal suppository 10 mg ID DAILY PRN Constipation 09/15/22 Unknown History furosemide 20 mg tablet 40 mg PO DAILY 09/15/22 Unkn own History hydroxyzine HCl 25 mg tablet 25 mg PO TID PRN ITCHING/ ANXIETY 09/15/22 Unknown History indapamide 2.5 mg tablet 2.5 mg PO DAILY 09/15/22 Unk nown History latanoprost 0.005 % eye drops 1 drp EACH EYE DAILY Unknown History nystatin 100,000 unit/gram topical 1 applic topical BI D PRN Rash 09/15/22 Unknown History powder ondansetron 4 mg disintegrating 4 mg PO Q6H PRN Nausea 09/15/22 Unknown History tablet potassium chloride 20 mEq 20 meq PO DAILY 09/15/22 Unk nown History tablet,extended release sodium phosphates 19 gram-7 118 ml ID DAILY PRN Consti pation 09/15/22 Unknown History gram/118 mL enema (Fleet Enema) venlafaxine 37.5 mg tablet 75 mg PO DAILY 09/15/22 Unk nown History apixaban 5 mg (74 tabs) tablets in See Rx Instructions PO .COMPLEX 06/20/24 Unknown Rx a dose pack (Eliquis DVT-PE Treat #74 tabs 30D Start) Allergy/AdvReac Type Severity Reaction Status Date / Time timolol Allergy Other Verified 01/18/25 02:41 Family History no significant family his Social History Smoking Status: Never smoker ROS ROS ED ROS Narrative see HPI EXAM Physical Exam Narrative Exam Narrative: Vital signs: Reviewed General: Alert and orientedx3. No acute distress HEENT: Head is normocephalic. Mild cephalohematoma to the left parietal region. No overlying lacerations or abrasions. Sinuses nontender, pupils equal round and reactive. Nares are patent. Oropharynx and throat exams normal. Neck: Supple without lymphadenopathy nontender. No midline cervical spinal tenderness to palpation. No step-offs or deformities. Cardiovascular: Regular rate and rhythm, no murmurs. No rubs or gallops. Normal S1 and S2 Respiratory: Clear to auscultation bilaterally. No wheezes, rales, rhonchi Chest: Chest wall is atraumatic and nontender to palpation. Abdominal: Soft and nontender. Normal bowel sounds. No guarding or rebound. Nonsurgical abdomen Extremities: Scattered abrasions to left knee and bilateral anterior thighs. No lacerations. Some mild tenderness to palpation of left anterior knee and bilateral femurs. No deformity. No tenderness to palpation of the right knee, bilateral tib-fib's, ankles or feet. No tenderness to palpation of hips, they are stable to palpation. Bilateral upper extremities are atraumatic and nontender to palpation with normal active range of motion. Normal active range of motion in bilateral lower extremities at hips and knees with flexion and extension. No midline thoracic or lumbar spinal tenderness to palpation. No step-offs or deformities. Skin: No rash or redness. Neurological: Cranial nerves II through XII are grossly intact. Normal strength and sensation. Normal cerebellar function The rest of the physical exam is unremarkable Const Vital Signs: 01/18/25 02:41 01/18/25 02:41 01/18/25 04:41 Temperature 97.6 F L Temperature Source Oral Pulse Rate 55 L 51 L Respiratory Rate 16 16 Respiratory Effort Normal Respiratory Depth Normal Respiratory Pattern Normal Blood Pressure 158/60 H 146/64 H Blood Pressure Mean 92 91 Pulse Ox 95 95 Oxygen Delivery Method Room Air Room Air Room Air 01/18/25 05:26 Temperature 97.6 F L Temperature Source Pulse Rate 52 L Respiratory Rate 16 Respiratory Effort Respiratory Depth Respiratory Pattern Blood Pressure 146/64 H Blood Pressure Mean 91 Pulse Ox 99 Oxygen Delivery Method MDM MDM MDM Narrative Medical decision making narrative: Patient is a 84-year-old female presenting emergency department after a fall with head trauma on Eliquis. Patient was seen and examined. Vitals are stable. Patient resting in bed comfortably in no acute distress. Only traumatic findings on exam are the abrasions to the upper legs and left knee. X-rays of bilateral femurs and knee was obtained. CT of the brain and cervical spine was obtained given the patient's age fall and being on Eliquis. Offered analgesia and she declines at this time. Patient is able to describe the fall to me and tell me why she fell. She is alert and oriented x 3. She denies any symptoms that caused her to fall including weakness, chest pain, shortness of breath, palpitations, lightheadedness or dizziness. I do not think it is necessary to obtain lab work at this time. It was mechanical in nature. CT brain was reviewed by myself, no acute intracranial abnormalities noted. Radiology read the left parietal acute subgaleal soft tissue hematoma. No CT evidence of acute traumatic abnormality in the brain. CT cervical spine with no acute traumatic abnormalities. Pelvis x-ray, femur x-rays and left knee x-ray reviewed by myself and there is no fracture or dislocation noted. Radiology read with negative x-rays as well. Patient ambulated with walker without difficulty. Updated patient on negative workup. Patient discharged from the Emergency Department. I do not feel that the patient's evaluation reveals any acute reason for admission at this time. I instructed them to either follow-up with their primary care physician or promptly return to the Emergency Department for reevaluation should symptoms worsen or new symptoms develop. I explained what symptoms would indicate the need to return to the emergency department. Shared decision making was used. The patient voiced understanding of the treatment plan and is agreeable with it. Clinical impression Fall Head trauma Left knee pain Abrasions History & Record Review Discussion w/independent historian: Patient Radiography X-Ray: Right Hip, Left Hip, Read by ED Physician and No Fracture Diagnostic Testing: Clinical Impression(s) from Imaging Studies Brain CT 01/18/25 03:00 IMPRESSION: Left parietal acute subgaleal soft tissue hematoma. No CT evidence of an acute traumatic abnormality in the brain. Reading Location: [facility] Cervical Spine CT 01/18/25 03:00 IMPRESSION: No CT evidence of an acute bone abnormality. Reading Location[facility] Femur X-Ray 01/18/25 03:40 IMPRESSION: No evidence for acute abnormality. Reading Location[facility] Femur X-Ray 01/18/25 03:40 IMPRESSION: No evidence for acute abnormality. Reading Location: [facility] Knee X-Ray 01/18/25 03:40 IMPRESSION: No evidence for acute abnormality. Reading Location: [facility] Discharge Plan Triage Chief Complaint: Fall ED Provider: Princess Spears Dx/Rx/DC Orders Clinical Impression: Fall, Head injury due to trauma, Abrasion hip/leg Instructions: ED Abrasion, ED Mechanical Fall, ED Fall Prevention Prescriptions: No Action latanoprost 0.005 % Drops 1 drp EACH EYE DAILY acetaminophen 325 mg Tablet 650 mg PO Q6H PRN (Reason: Pain) indapamide 2.5 mg Tablet 2.5 mg PO DAILY bisacodyl 10 mg Suppository 10 mg ID DAILY PRN (Reason: Constipation) venlafaxine 37.5 mg Tablet 75 mg PO DAILY Fleet Enema 19-7 gram/118 mL Enema 118 ml ID DAILY PRN (Reason: Constipation) hydroxyzine HCl 25 mg Tablet 25 mg PO TID PRN (Reason: ITCHING/ANXIETY) furosemide 20 mg Tablet 40 mg PO DAILY nystatin 100,000 unit/gram Powder 1 applic TOPICAL BID PRN (Reason: Rash) ondansetron 4 mg Tablet,Disintegrating 4 mg PO Q6H PRN (Reason: Nausea) potassium chloride 20 mEq Tablet Extended Release 20 meq PO DAILY Eliquis DVT-PE Treat 30D Start 5 mg (74 tabs) tablets,dose pack See Rx Instructions .ROUTE .COMPLEX Qty: 74 0RF Rx Instructions: orally per package directions Primary Care Provider: Prashanth Caicedo Referrals: Christina Modi MD [Med Staff - Civil Engineering Project Manager] - 2 Days Activity Restrictions/Additional Instructions: Your evaluation in the Emergency Department did not reveal any acute reason for admission. However, I want to emphasize that you may be early in the course of a disease process or illness even if it is not present. For this reason you should follow-up within 24 hours for reevaluation with either your primary care physician or if necessary back here in the Emergency Department. You should return to the Emergency Department immediately if your symptoms worsen or new symptoms develop. Print Language: Omani Disposition Disposition: Home, Self Care
[2025-01-18 04:41] VITALS: BP 146/64; PULSE 51; RESP 16; O2SAT 95
[2025-01-18 05:26] VITALS: BP 146/64; PULSE 52; RESP 16; TEMP 36.4; O2SAT 99
--- NOTE | 2025-01-18 06:09 | ED.RN ---
This RN called report to Bandar, no further questions at this time.
== END 2025-01-18 07:28 | disposition home or self-care (01) ==
PROVIDERS: Emergency Provider Student in an Organized Health Care Education/Training Program; Visit Provider Student in an Organized Health Care Education/Training Program
DX: S80.212A Abrasion, left knee, initial encounter (principal); S09.90XA Unspecified injury of head, initial encounter; W01.198A Fall on same level from slipping, tripping and stumbling with subsequent striking against other object, initial encounter; Y92.129 Unspecified place in nursing home as the place of occurrence of the external cause; I10 Essential (primary) hypertension; I73.9 Peripheral vascular disease, unspecified; S70.311A Abrasion, right thigh, initial encounter; S70.312A Abrasion, left thigh, initial encounter; Z79.01 Long term (current) use of anticoagulants
CPT/HCPCS: 70450; 72125; 72170; 73552; 73560; 99284

== ENCOUNTER 2025-02-11 13:00 | Outpatient (RCR) | payer MEDICARE, SELFPAY ==
[2025-01-21 13:19] VITALS: BP 154/72; PULSE 67; RESP 16; TEMP 36.4
--- NOTE | 2025-01-21 14:31 | PN.PCM_ITS ---
History of Present Illness Date of Service: 01/21/25 Chief Complaint: RLE wound History of Wound: Patient is a 83-year-old female with chronic full-thickness wounds to the right calf and Achilles area secondary to shoe gear. She has been doing dressing changes. There is improvement to the wound. No drainage sign of infection Progress of Wound: Stable full-thickness wounds to the right posterior ankle. Subjective Subjective Patient is 84-year-old female seen at the wound care center today follow-up evaluation of full-thickness wound to the posterior right ankle. Patient was recently seen in the emergency room at [facility] secondary to a fall at her care home facility. She underwent multiple CT scans and shows no evidence of brain bleed at this time as well as no evidence of fracture. Patient's workup in the emergency room was negative. Patient was educated during today's visit that if she has a headache that she can describe as the worst headache she has ever felt she is to return to emergency room for evaluation. She has left the multilayer compression bandage to the bilateral extremity clean dry and intact. She denies constitutional symptoms. No other pedal complaints at this time. Objective Data Objective Data Vital Signs: Vital Signs Temp Pulse Resp BP 97.5 F L 67 16 154/72 H 01/21/25 13:19 01/21/25 13:19 01/21/25 13:19 01/21/25 13:19 Physical Exam Narrative Vascular: DP and PT pulses are palpable to bilateral extremity. CFT is brisk. Nonpitting edema appreciated to bilateral lower extremity. No erythema to the posterior right leg. Skin temperature is warm to warm from proximal ankles to distal digit bilateral. Neurological: Light touch intact. Patient does respond to painful stimuli. Dermatological: Right lateral leg full-thickness wound measures 1.9 x 1.0 x 0.1 cm. Wound base is granular with no sign of infection. Right medial leg full- thickness wound measures 1.5 x 0.5 x 0.1 cm. Wound base is granular with no sign of infection. Excisional debridement down to including subcutaneous tissue of the right lateral posterior ankle with a number 5 mm dermal curette done without incident. Predebridement measurement was 1.5 x 0.8 x 0.1 cm. Postdebridement measurement 1.9 x 1.0 x 0.1 cm. EpiFix 18 mm was applied to the right lateral full-thickness ulceration with 100% use. First application. The graft site was free and clear of any infection. The wound/skin graft substitute was dressed with nonadherent bandage secured in place with Steri-Strips followed by bolster dressing as well as a double layer Tubigrip. Excisional debridement down to and including subcutaneous tissue of the right medial posterior ankle wound with a number 5 mm dermal curette done without incident. Predebridement measurement was 1.3 x 0.4 x 0.1 cm. Postdebridement measurement is 1.5 x 0.5 x 0.1 cm. Musculoskeletal: No pain on palpation to both full-thickness ulceration. No pain with calf compression. Debridement Note Debridement Note Debridement Free Text: Excisional debridement down to including subcutaneous tissue of the right lateral posterior ankle with a number 5 mm dermal curette done without incident. Predebridement measurement was 1.5 x 0.8 x 0.1 cm. Postdebridement measurement 1.9 x 1.0 x 0.1 cm. EpiFix 18 mm was applied to the right lateral full-thickness ulceration with 100% use. First application. The graft site was free and clear of any infection. The wound/skin graft substitute was dressed with nonadherent bandage secured in place with Steri-Strips followed by bolster dressing as well as a double layer Tubigrip. Excisional debridement down to and including subcutaneous tissue of the right medial posterior ankle wound with a number 5 mm dermal curette done without incident. Predebridement measurement was 1.3 x 0.4 x 0.1 cm. Postdebridement measurement is 1.5 x 0.5 x 0.1 cm. Post-Debridement Measurements and Additional Note: Post-Debridement Measurements/Treatment - Nurse 1 - General Ulcer Assessment Start: 01/21/25 13:15 Freq: Status: Active Protocol: STACIA Activity Type Activity Date Activity User E-sign Co-sign Detail Recorded Client Recorded Date Recorded By Document 01/21/25 13:19 ANJUM [id number] 01/21/25 13:30 DL 01/21/25 13:19 - Today's Visit Information Type of service Follow-up Visit (Physician/BUILD MASTER ) Arrival Mode Ambulatory, Walker Transfer Assistance Manual Transfer Assist (Other) X2 Patient Identification Verified (Name & Yes ) Patient Requires Transmission-Based No Precautions Vital Signs Temperature (97.8 F-99.1 F) 97.5 F L Temperature Source Temporal Pulse Rate (60-100) 67 Pulse Location Monitor Respiratory Rate (12-18) 16 Blood Pressure (90/60-120/80) 154/72 H Blood Pressure Mean (mm Hg) 99 Source Monitor History Since Last Visit- (Skip if this is Patient's initial visit) Have you changed medications since your No last visit? Any new allergies or adverse reactions No Had a fall/change in ADL's that may No increase risk of falls Signs or symptoms of abuse and/or No neglect since last visit Have you been in the hospital since your Yes last visit? Has dressing in place as prescribed Yes Has compression in place as prescribed Yes Has offloadiing in place as prescribed N/A Experienced any changes in pain level or No management Pain Scale: 0-10 Numeric Is Patient Pain Free? Yes WC - Nurse 1 - General Ulcer Measurement Start: 01/21/25 13:15 Freq: Status: Active Protocol: Activity Type Activity Date Activity User E-sign Co-sign Detail Recorded Client Recorded Date Recorded By Document 01/21/25 13:19 DL [id number] 01/21/25 13:30 DL 01/21/25 13:19 Wound Center Nurse 1 #14- R MEDIAL CALF -Current Size (cm) - Length 0.1 -Current Size (cm) - Width 0.1 -Current Size (cm) - Depth 0.1 -Total Square Cm 0.01 -Exudate Amt Small -Wound Margin Distinct, Outline Attached -Granulation Amt Small (1-33%) -Granulation Quality [place] -Necrosis Amt Small (1-33%) -Necrotic Tissue Type Adherent Slough -Structure Exposed N/A -Texture (Maryann-wound Skin Appearance) Scarring -Moisture (Maryann-wound Skin Appearance) Dry/Scaly -Color (Maryann-wound Skin Appearance) No Abnormality -Temperature (Maryann-wound Skin No Abnormality Appearance) (Pt Warm) -Ulcer Cleansing Soap and Water -Foul Odor after Cleansing No -Anesthetic Used 5% Lidocaine Gel #13- R LAT CALF -Current Size (cm) - Length 0.1 -Current Size (cm) - Width 0.1 -Current Size (cm) - Depth 0.1 -Total Square Cm 0.01 -Exudate Amt None Present -Wound Margin Distinct, Outline Attached -Granulation Quality [place] -Necrosis Amt Small (1-33%) -Necrotic Tissue Type Adherent Slough -Structure Exposed N/A -Texture (Maryann-wound Skin Appearance) Scarring -Moisture (Maryann-wound Skin Appearance) No Abnormality -Color (Maryann-wound Skin Appearance) No Abnormality -Temperature (Maryann-wound Skin No Abnormality Appearance) (Pt Warm) -Ulcer Cleansing Soap and Water -Foul Odor after Cleansing No -Anesthetic Used 5% Lidocaine Gel Right Calf (cm) 34.5 Right Ankle (cm) 20.8 Left Calf (cm) 36 Left Ankle (cm) 20.8 WC - Nurse 2 - General Ulcer CM Notes Start: 01/21/25 13:15 Freq: Status: Active Protocol: Activity Type Activity Date Activity User E-sign Co-sign Detail Recorded Client Recorded Date Recorded By Document 01/21/25 13:41 KATELYNN [id number] 01/21/25 13:48 KATELYNN 01/21/25 13:41 Wound Center Nurse 2 #14- R [facility] CALF -Time 13:44 -Correct Patient Yes -Correct Side, Site, Position Yes -Correct Procedure Yes -Procedure Performed Yes -Type of Procedure Debridement -Clinical Debridement Subcutaneous -Tissue Removed Subcutaneous -Post Debridement (cm) - Length 1.5 -Post Debridement (cm) - Width 0.5 -Post Debridement (cm) - Depth 0.1 -Total Square (Post) (cm) 0.75 -Area of Debridement (cm) - Length 1.5 -Area of Debridement (cm) - Width 0.5 -Total Square (Area) (cm) 0.75 -Tunneling No -Undermining/Tunneling No -Circular Undermining No -Wound/Ulcer Outcome Not Healed -Ulcer Cleansing Rinsed/ Irrigated with Saline -Foul Odor after Cleansing No -Bioengineered Tissue No -Bleeding Controlled with Pressure -Treatment Response Procedure Tolerated Well -Offloading No -Debridement - Subq, 1st 20sq cm Yes #13- R LAT CALF -Time 13:45 -Correct Patient Yes -Correct Side, Site, Position Yes -Correct Procedure Yes -Procedure Performed Yes -Type of Procedure Debridement -Clinical Debridement Subcutaneous -Tissue Removed Subcutaneous -Post Debridement (cm) - Length 1.9 -Post Debridement (cm) - Width 1.0 -Post Debridement (cm) - Depth 0.1 -Total Square (Post) (cm) 1.90 -Area of Debridement (cm) - Length 1.9 -Area of Debridement (cm) - Width 1.0 -Total Square (Area) (cm) 1.90 -Tunneling No -Undermining/Tunneling No -Circular Undermining No -Wound/Ulcer Outcome Not Healed -Ulcer Cleansing Rinsed/ Irrigated with Saline -Foul Odor after Cleansing No -Bioengineered Tissue Yes -Type of Bioengineered Tissue Epifix 18mm Disc -Expiration Date 09/18/29 -Product Lot Number [id number] -Percent Used 100 -Lot number of Saline Used [id number] -Bleeding Controlled with Pressure -Treatment Response Procedure Tolerated Well -Offloading No -Debridement - Subq, 1st 20sq cm No -Apply Skin Sub - 1st 25 sq cm - Legs 1 -Epifix 18mm Disc Application 1-4 3 Pain Scale: 0-10 Numeric Is Patient Pain Free? Yes - Nurse 3 - General Ulcer D/C NN Start: 01/21/25 13:15 Freq: Status: Active Protocol: Activity Type Activity Date Activity User E-sign Co-sign Detail Recorded Client Recorded Date Recorded By Document 01/21/25 13:59 KW [id number] 01/21/25 14:00 KW 01/21/25 13:59 Wound Care Center Nurse 3 #14- R MEDIAL CALF -Primary Dressing Covered/Secured with Dry Gauze #13- R LAT CALF -Primary Dressing Covered/Secured with Dry Gauze BLE -Multi-Layered Wrap Application Multi-Layer Comp - Bilat ($ ) -Multi-Layer Compression Bilat (Qty 1 applied) Pain Scale: 0-10 Numeric Is Patient Pain Free? Yes WC - Visit Discharge Discharge Condition Stable Ambulatory Status Ambulatory, Walker Medication Reconcilliation completed & No provided to patient/care provider Clinical Summary of Care Provided Yes Assessment/Plan Assessment/Plan (1) Non-pressure chronic ulcer of right ankle with fat layer exposed: CODE(S): L97.312 - Non-pressure chronic ulcer of right ankle with fat layer exposed PLAN: Patient was examined and evaluated. All findings were discussed with the patient. All questions were answered to the patient's satisfaction. Excisional debridement down to including subcutaneous tissue of the right lateral posterior ankle with a number 5 mm dermal curette done without incident. Predebridement measurement was 1.5 x 0.8 x 0.1 cm. Postdebridement measurement 1.9 x 1.0 x 0.1 cm. EpiFix 18 mm was applied to the right lateral full-thickness ulceration with 100% use. First application. The graft site was free and clear of any infection. The wound/skin graft substitute was dressed with nonadherent bandage secured in place with Steri-Strips followed by bolster dressing as well as a bilateral 3M compression wrap. Excisional debridement down to and including subcutaneous tissue of the right medial posterior ankle wound with a number 5 mm dermal curette done without incident. Predebridement measurement was 1.3 x 0.4 x 0.1 cm. Postdebridement measurement is 1.5 x 0.5 x 0.1 cm. Patient was instructed leave the multilayer compression bandages clean dry and intact. She is to rest and elevate is much as she can. Regarding the patient's fall and evaluation emergency room, I stated to the patient that if she has any pain or discomfort especially with a headache she is to return to the emergency room for evaluation workup. Follow-up at the wound care center with Dr. Sylvester in 1 week. (2) Other specified peripheral vascular diseases: CODE(S): I73.89 - Other specified peripheral vascular diseases
--- NOTE | 2025-01-23 09:58 | WC ---
Spoke with home health they stated that if she is being see at the wound center weekly they will stop seeing her and that if they are needed to call them.
[2025-01-28 10:40] VITALS: BP 180/79; PULSE 77; RESP 18; TEMP 36.3
--- NOTE | 2025-01-28 11:08 | PN.PCM_ITS ---
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 She has been doing dressing changes. There is improvement to the wound. No drainage sign of infection Progress of Wound: Stable full-thickness wounds to the right posterior ankle. Subjective Subjective Patient is 84-year-old female presenting to clinic today follow-up evaluation of full-thickness wound to the posterior left leg at the level of the ankle. Patie nt has left the amnion skin graft substitute clean dry and intact. The medial full-thickness wound is now healed and will be continuing wound care to the medial wound to the posterior right ankle. Patient does admit to a fall again at her facility and was not treated at the emergency room. The facility did not warrant a emergency room visit at that time. She also has a blister to the right great toe secondary to a fall. Everything is stable. No sign of infection. Denies constitutional symptoms. No other pedal complaints at this time. Objective Data Objective Data Vital Signs: Vital Signs Temp Pulse Resp BP O2 Del Method 97.3 F L 77 18 180/79 H Room Air 01/28/25 10:40 01/28/25 10:40 01/28/25 10:40 01/28/25 10:40 01/28/25 10:40 Oxygen Delivery Method Room Air Physical Exam Narrative Vascular: DP and PT pulses are palpable to bilateral extremity. CFT is brisk. Nonpitting edema appreciated to bilateral lower extremity. No erythema to the posterior right leg. Skin temperature is warm to warm from proximal ankles to distal digit bilateral. Neurological: Light touch intact. Patient does respond to painful stimuli. Dermatological: Right lateral leg full-thickness wound measures 1.5 x 0.3 x 0.1 cm. Wound base is granular with no sign of infection. Right medial leg wound at the level of the ankle is now healed. Evidence of serous bullae to the dorsal aspect of the right hallux, stable with no sign of infection. Excisional debridement down to including subcutaneous tissue of the right lateral posterior ankle with a number 5 mm dermal curette done without incident. Predebridement measurement was sanguinous crust. Postdebridement measurement 1.5 x 0.3 x 0.1 cm. EpiFix 2.0 x 2.0 cm was applied to the right lateral full-thickness ulceration with 100% use. Second application. The graft site was free and clear of any infection. The wound/skin graft substitute was dressed with nonadherent bandage secured in place with Steri-Strips followed by bolster dressing as well as a multilayer compression bandage to the bilateral lower extremity Musculoskeletal: No pain on palpation to both full-thickness ulceration. No pain with calf compression. Debridement Note Debridement Note Debridement Free Text: Excisional debridement down to including subcutaneous tissue of the right lateral posterior ankle with a number 5 mm dermal curette done without incident. Predebridement measurement was sanguinous crust. Postdebridement measurement 1.5 x 0.3 x 0.1 cm. EpiFix 2.0 x 2.0 cm was applied to the right lateral full-thickness ulceration with 100% use. Second application. The graft site was free and clear of any infection. The wound/skin graft substitute was dressed with nonadherent bandage secured in place with Steri-Strips followed by bolster dressing as well as a multilayer compression bandage to the bilateral lower extremity Post-Debridement Measurements and Additional Note: Post-Debridement Measurements/Treatment - Nurse 1 - General Ulcer Assessment Start: 01/21/25 13:15 Freq: Status: Active Protocol: STACIA Activity Type Activity Date Activity User E-sign Co-sign Detail Recorded Client Recorded Date Recorded By Document 01/21/25 13:19 DL [id number] 01/21/25 13:30 DL Document 01/28/25 10:40 KW [id number] 01/28/25 10:50 KW 01/21/25 01/28/25 13:19 10:40 - Today's Visit Information Type of service Follow-up Visit Follow-up Visit (Physician/SENIOR CHEMIST (Physician/SENIOR CHEMIST ) ) Arrival Mode Ambulatory, Ambulatory, Walker Walker Transfer Assistance Manual Transfer Assist (Other) X2 Patient Identification Verified (Name & Yes Yes ) Patient Requires Transmission-Based No Precautions Vital Signs Temperature (97.8 F-99.1 F) 97.5 F L 97.3 F L Temperature Source Temporal Temporal Pulse Rate (60-100) 67 77 Pulse Location Monitor Monitor Respiratory Rate (12-18) 16 18 Respiratory rate source Observation Oxygen Delivery Method Room Air Blood Pressure (90/60-120/80) 154/72 H 180/79 H Blood Pressure Mean (mm Hg) 99 112 Source Monitor Monitor Position Semi-Fowlers Blood Pressure Location Right Arm History Since Last Visit- (Skip if this is Patient's initial visit) Have you changed medications since your No No last visit? Any new allergies or adverse reactions No No Had a fall/change in ADL's that may No No increase risk of falls Signs or symptoms of abuse and/or No No neglect since last visit Have you been in the hospital since your Yes No last visit? Has dressing in place as prescribed Yes Yes Has compression in place as prescribed Yes Yes Has offloadiing in place as prescribed N/A N/A Experienced any changes in pain level or No No management Left Footwear No Footwear Right Footwear No Footwear Pain Scale: 0-10 Numeric Is Patient Pain Free? Yes Yes WC - Nurse 1 - General Ulcer Measurement Start: 01/21/25 13:15 Freq: Status: Active Protocol: Activity Type Activity Date Activity User E-sign Co-sign Detail Recorded Client Recorded Date Recorded By Document 01/21/25 13:19 DL [id number] 01/21/25 13:30 DL Document 01/28/25 10:40 KW [id number] 01/28/25 10:50 KW 01/21/25 01/28/25 13:19 10:40 Wound Center Nurse 1 #14- R MEDIAL CALF -Current Size (cm) - Length 0.1 0.1 -Current Size (cm) - Width 0.1 0.1 -Current Size (cm) - Depth 0.1 0 -Total Square Cm 0.01 0.01 -Date of Last Picture (Recall this 01/28/25 field) -Exudate Amt Small None Present -Wound Margin Distinct, Outline Attached -Granulation Amt Small (1-33%) None Present (0 %) -Granulation Quality [place] -Necrosis Amt Small (1-33%) -Necrotic Tissue Type Adherent Slough -Structure Exposed N/A -Texture (Maryann-wound Skin Appearance) Scarring Assessed -Moisture (Maryann-wound Skin Appearance) Dry/Scaly Assessed,Dry/ Scaly -Color (Maryann-wound Skin Appearance) No Abnormality Assessed -Temperature (Maryann-wound Skin No Abnormality No Abnormality Appearance) (Pt Warm) (Pt Warm) -Tenderness on Palpation (Maryann-wound No Skin Appearance) -Ulcer Cleansing Soap and Water Soap and Water -Foul Odor after Cleansing No No -Anesthetic Used 5% Lidocaine 5% Lidocaine Gel Gel -Wound Comment(s) scabbed #13- R LAT CALF -Current Size (cm) - Length 0.1 0.1 -Current Size (cm) - Width 0.1 0.1 -Current Size (cm) - Depth 0.1 0 -Total Square Cm 0.01 0.01 -Date of Last Picture (Recall this 01/28/25 field) -Exudate Amt None Present None Present -Wound Margin Distinct, Outline Attached -Granulation Amt None Present (0 %) -Granulation Quality [place] -Necrosis Amt Small (1-33%) -Necrotic Tissue Type Adherent Slough -Structure Exposed N/A -Texture (Maryann-wound Skin Appearance) Scarring Assessed -Moisture (Maryann-wound Skin Appearance) No Abnormality Assessed,Dry/ Scaly -Color (Maryann-wound Skin Appearance) No Abnormality Assessed -Temperature (Maryann-wound Skin No Abnormality No Abnormality Appearance) (Pt Warm) (Pt Warm) -Tenderness on Palpation (Maryann-wound No Skin Appearance) -Ulcer Cleansing Soap and Water Soap and Water -Foul Odor after Cleansing No No -Anesthetic Used 5% Lidocaine 5% Lidocaine Gel Gel -Wound Comment(s) scabbed Right Calf (cm) 34.5 Right Ankle (cm) 20.8 Left Calf (cm) 36 Left Ankle (cm) 20.8 WC - Nurse 2 - General Ulcer CM Notes Start: 01/21/25 13:15 Freq: Status: Active Protocol: Activity Type Activity Date Activity User E-sign Co-sign Detail Recorded Client Recorded Date Recorded By Document 01/21/25 13:41 [id number] 01/21/25 13:48 Document 01/28/25 10:58 [id number] [id number] 01/28/25 11:03 01/21/25 01/28/25 13:41 10:58 Wound Center Nurse 2 #14- R MEDIAL CALF -Time 13:44 -Correct Patient Yes Yes -Correct Side, Site, Position Yes No -Correct Procedure Yes No -Procedure Performed Yes No -Type of Procedure Debridement -Clinical Debridement Subcutaneous -Tissue Removed Subcutaneous -Post Debridement (cm) - Length 1.5 0 -Post Debridement (cm) - Width 0.5 0 -Post Debridement (cm) - Depth 0.1 0 -Total Square (Post) (cm) 0.75 0 -Area of Debridement (cm) - Length 1.5 0 -Area of Debridement (cm) - Width 0.5 0 -Total Square (Area) (cm) 0.75 0 -Tunneling No -Undermining/Tunneling No -Circular Undermining No -Wound/Ulcer Outcome Not Healed Healed- Epithelialized -Ulcer Cleansing Rinsed/ Irrigated with Saline -Foul Odor after Cleansing No -Bioengineered Tissue No -Bleeding Controlled with Pressure -Treatment Response Procedure Tolerated Well -Offloading No -Debridement - Subq, 1st 20sq cm Yes #13- R LAT CALF -Time 13:45 11:00 -Correct Patient Yes Yes -Correct Side, Site, Position Yes Yes -Correct Procedure Yes Yes -Procedure Performed Yes Yes -Type of Procedure Debridement Debridement -Clinical Debridement Subcutaneous Subcutaneous -Tissue Removed Subcutaneous Subcutaneous -Post Debridement (cm) - Length 1.9 1.5 -Post Debridement (cm) - Width 1.0 0.3 -Post Debridement (cm) - Depth 0.1 0.1 -Total Square (Post) (cm) 1.90 0.45 -Area of Debridement (cm) - Length 1.9 1.5 -Area of Debridement (cm) - Width 1.0 0.3 -Total Square (Area) (cm) 1.90 0.45 -Tunneling No No -Undermining/Tunneling No No -Circular Undermining No No -Wound/Ulcer Outcome Not Healed Not Healed -Ulcer Cleansing Rinsed/ Rinsed/ Irrigated with Irrigated with Saline Saline -Foul Odor after Cleansing No No -Bioengineered Tissue Yes Yes -Type of Bioengineered Tissue Epifix 18mm Epifix Disc -Expiration Date 09/18/29 08/19/29 -Product Lot Number [id number] -Percent Used 100 100 -Lot number of Saline Used [id number] -Bleeding Controlled with Pressure Pressure -Treatment Response Procedure Procedure Tolerated Well Tolerated Well -Offloading No No -Debridement - Subq, 1st 20sq cm No No -Apply Skin Sub - 1st 25 sq cm - Legs 1 1 -Epifix Application 1-4 (per sq cm) 4 -Epifix 18mm Disc Application 1-4 3 Pain Scale: 0-10 Numeric Is Patient Pain Free? Yes Yes WC - Nurse 3 - General Ulcer D/C NN Start: 01/21/25 13:15 Freq: Status: Active Protocol: Activity Type Activity Date Activity User E-sign Co-sign Detail Recorded Client Recorded Date Recorded By Document 01/21/25 13:59 [id number] 01/21/25 14:00 KW 01/21/25 13:59 Wound Care Center Nurse 3 #14- R MEDIAL CALF -Primary Dressing Covered/Secured with Dry Gauze #13- R LAT CALF -Primary Dressing Covered/Secured with Dry Gauze BLE -Multi-Layered Wrap Application Multi-Layer Comp - Bilat ($ ) -Multi-Layer Compression Bilat (Qty 1 applied) Pain Scale: 0-10 Numeric Is Patient Pain Free? Yes WC - Visit Discharge Discharge Condition Stable Ambulatory Status Ambulatory, Walker Medication Reconcilliation completed & No provided to patient/care provider Clinical Summary of Care Provided Yes Assessment/Plan Assessment/Plan (1) Non-pressure chronic ulcer of right ankle with fat layer exposed: CODE(S): L97.312 - Non-pressure chronic ulcer of right ankle with fat layer exposed PLAN: Patient was examined and evaluated. All findings were discussed with the patient. All questions were answered to the patient's satisfaction. Excisional debridement down to including subcutaneous tissue of the right lateral posterior ankle with a number 5 mm dermal curette done without incident. Predebridement measurement was sanguinous crust. Postdebridement measurement 1.5 x 0.3 x 0.1 cm. EpiFix 2.0 x 2.0 cm was applied to the right lateral full-thickness ulceration with 100% use. Second application. The graft site was free and clear of any infection. The wound/skin graft substitute was dressed with nonadherent bandage secured in place with Steri-Strips followed by bolster dressing as well as a multilayer compression bandage to the bilateral lower extremity The right hallux bullae was drained and the roof of the bullae was left clean dry and intact and Betadine paint was applied. Orders were given for daily dressing changes to the right great toe. Educated the patient to make sure that she is working with assistance especially at her facility due to falls which she is understanding of. Also educated the patient to follow-up with social work regarding shoes. Follow-up at the wound care center with Dr. Sylvester in 1 week. (2) Other specified peripheral vascular diseases: CODE(S): I73.89 - Other specified peripheral vascular diseases (3) Contusion of right foot: CODE(S): S90.31XA - Contusion of right foot, initial encounter
--- NOTE | 2025-01-28 12:49 | WC ---
PHOTO-RIGHT POST LE X2 01/28/25
[2025-02-04 13:13] VITALS: BP 191/86; PULSE 82; RESP 16; TEMP 36.6
--- NOTE | 2025-02-04 14:21 | PN.PCM_ITS ---
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 She has been doing dressing changes. There is improvement to the wound. No drainage sign of infection Progress of Wound: Stable full-thickness wounds to the right posterior ankle. Subjective Subjective Patient is a 84-year-old female presenting to clinic today follow-up evaluation of full-thickness wound to the posterior medial right leg/ankle area. Patient has left the amnion skin graft clean dry and intact. She is also had bilateral 3M multilayer compression bandages that have been left clean dry and intact. She does admit to a small fall when going to her hamper at her facility. She denies going to the hospital for evaluation. Denies constitutional symptoms. No other pedal complaints at this time. Objective Data Objective Data Vital Signs: Vital Signs Temp Pulse Resp BP O2 Del Method 97.9 F 82 16 191/86 H Room Air 02/04/25 13:13 02/04/25 13:13 02/04/25 13:13 02/04/25 13:13 01/28/25 10:40 Oxygen Delivery Method Room Air Physical Exam Narrative Vascular: DP and PT pulses are palpable to bilateral extremity. CFT is brisk. Nonpitting edema appreciated to bilateral lower extremity. No erythema to the posterior right leg. Skin temperature is warm to warm from proximal ankles to distal digit bilateral. Neurological: Light touch intact. Patient does respond to painful stimuli. Dermatological: Right lateral leg full-thickness wound measures 2.5 x 2.7 x 0.1 cm. Wound base is granular with no sign of infection. Excisional debridement down to including subcutaneous tissue of the right lateral posterior ankle with a number 5 mm dermal curette done without incident. Predebridement measurement was sanguinous crust. Postdebridement measurement 2.5 x 2.7 x 0.1 cm. EpiFix 2.0 x 2.0 cm was applied to the right lateral full-thickness ulceration with 100% use. Third application. The graft site was free and clear of any infection. The wound/skin graft substitute was dressed with nonadherent bandage secured in place with Steri-Strips followed by bolster dressing as well as a multilayer compression bandage to the bilateral lower extremity Musculoskeletal: No pain on palpation to both full-thickness ulceration. No pain with calf compression. Debridement Note Debridement Note Debridement Free Text: Excisional debridement down to including subcutaneous tissue of the right lateral posterior ankle with a number 5 mm dermal curette done without incident. Predebridement measurement was sanguinous crust. Postdebridement measurement 2.5 x 2.7 x 0.1 cm. EpiFix 2.0 x 2.0 cm was applied to the right lateral full-thickness ulceration with 100% use. Third application. The graft site was free and clear of any infection. The wound/skin graft substitute was dressed with nonadherent bandage secured in place with Steri-Strips followed by bolster dressing as well as a multilayer compression bandage to the bilateral lower extremity Post-Debridement Measurements and Additional Note: Post-Debridement Measurements/Treatment - Nurse 1 - General Ulcer Assessment Start: 01/21/25 13:15 Freq: Status: Active Protocol: .LOWEXElza Activity Type Activity Date Activity User E-sign Co-sign Detail Recorded Client Recorded Date Recorded By Document 01/21/25 13:19 DL [id number] 01/21/25 13:30 DL Document 01/28/25 10:40 KW [id number] 01/28/25 10:50 KW Document 02/04/25 13:13 DL [id number] 02/04/25 13:23 DL 01/21/25 01/28/25 02/04/25 13:19 10:40 13:13 - Today's Visit Information Type of service Follow-up Visit Follow-up Visit Follow-up Visit (Physician/CUP TRIMMING MACHINE OPERATOR (Physician/CUP TRIMMING MACHINE OPERATOR (Physician/CUP TRIMMING MACHINE OPERATOR ) ) ) Arrival Mode Ambulatory, Ambulatory, Ambulatory, Walker Walker Walker Transfer Assistance Manual Manual Transfer Assist (Other) X2 x1 Patient Identification Verified (Name & Yes Yes Yes ) Patient Requires Transmission-Based No No Precautions Vital Signs Temperature (97.8 F-99.1 F) 97.5 F L 97.3 F L 97.9 F Temperature Source Temporal Temporal Temporal Pulse Rate (60-100) 67 77 82 Pulse Location Monitor Monitor Monitor Respiratory Rate (12-18) 16 18 16 Respiratory rate source Observation Observation Oxygen Delivery Method Room Air Blood Pressure (90/60-120/80) 154/72 H 180/79 H 191/86 H Blood Pressure Mean (mm Hg) 99 112 121 Source Monitor Monitor Monitor Position Semi-Fowlers Blood Pressure Location Right Arm History Since Last Visit- (Skip if this is Patient's initial visit) Have you changed medications since your No No No last visit? Any new allergies or adverse reactions No No No Had a fall/change in ADL's that may No No No increase risk of falls Signs or symptoms of abuse and/or No No No neglect since last visit Have you been in the hospital since your Yes No No last visit? Has dressing in place as prescribed Yes Yes Yes Has compression in place as prescribed Yes Yes Yes Has offloadiing in place as prescribed N/A N/A N/A Experienced any changes in pain level or No No No management Left Footwear No Footwear Right Footwear No Footwear Pain Scale: 0-10 Numeric Is Patient Pain Free? Yes Yes Yes WC - Nurse 1 - General Ulcer Measurement Start: 01/21/25 13:15 Freq: Status: Active Protocol: Activity Type Activity Date Activity User E-sign Co-sign Detail Recorded Client Recorded Date Recorded By Document 01/21/25 13:19 DL [id number] 01/21/25 13:30 DL Document 01/28/25 10:40 KW [id number] 01/28/25 10:50 KW Document 02/04/25 13:13 DL [id number] 02/04/25 13:23 DL 01/21/25 01/28/25 02/04/25 13:19 10:40 13:13 Wound Center Nurse 1 #14- R MEDIAL CALF -Current Size (cm) - Length 0.1 0.1 -Current Size (cm) - Width 0.1 0.1 -Current Size (cm) - Depth 0.1 0 -Total Square Cm 0.01 0.01 -Date of Last Picture (Recall this 01/28/25 field) -Exudate Amt Small None Present -Wound Margin Distinct, Outline Attached -Granulation Amt Small (1-33%) None Present (0 %) -Granulation Quality [place] -Necrosis Amt Small (1-33%) -Necrotic Tissue Type Adherent Slough -Structure Exposed N/A -Texture (Maryann-wound Skin Appearance) Scarring Assessed -Moisture (Maryann-wound Skin Appearance) Dry/Scaly Assessed,Dry/ Scaly -Color (Maryann-wound Skin Appearance) No Abnormality Assessed -Temperature (Maryann-wound Skin No Abnormality No Abnormality Appearance) (Pt Warm) (Pt Warm) -Tenderness on Palpation (Maryann-wound No Skin Appearance) -Ulcer Cleansing Soap and Water Soap and Water -Foul Odor after Cleansing No No -Anesthetic Used 5% Lidocaine 5% Lidocaine Gel Gel -Wound Comment(s) scabbed #13- R LAT CALF -Current Size (cm) - Length 0.1 0.1 0.1 -Current Size (cm) - Width 0.1 0.1 0.1 -Current Size (cm) - Depth 0.1 0 0.1 -Total Square Cm 0.01 0.01 0.01 -Date of Last Picture (Recall this 01/28/25 field) -Exudate Amt None Present None Present None Present -Wound Margin Distinct, Indistinct, Non Outline -Visible Attached -Granulation Amt None Present (0 Large (67-100%) %) -Granulation Quality [place] Pale,[place] -Necrosis Amt Small (1-33%) None Present (0 %) -Necrotic Tissue Type Adherent Slough -Structure Exposed N/A N/A -Texture (Maryann-wound Skin Appearance) Scarring Assessed Scarring -Moisture (Maryann-wound Skin Appearance) No Abnormality Assessed,Dry/ Dry/Scaly Scaly -Color (Maryann-wound Skin Appearance) No Abnormality Assessed Hemosiderin Staining -Temperature (Maryann-wound Skin No Abnormality No Abnormality No Abnormality Appearance) (Pt Warm) (Pt Warm) (Pt Warm) -Tenderness on Palpation (Maryann-wound No No Skin Appearance) -Ulcer Cleansing Soap and Water Soap and Water Soap and Water -Foul Odor after Cleansing No No No -Anesthetic Used 5% Lidocaine 5% Lidocaine 5% Lidocaine Gel Gel Gel -Wound Comment(s) scabbed Right Calf (cm) 34.5 38 Right Ankle (cm) 20.8 20.5 Left Calf (cm) 36 Left Ankle (cm) 20.8 WC - Nurse 2 - General Ulcer CM Notes Start: 01/21/25 13:15 Freq: Status: Active Protocol: Activity Type Activity Date Activity User E-sign Co-sign Detail Recorded Client Recorded Date Recorded By Document 01/21/25 13:41 KATELYNN [id number] 01/21/25 13:48 Document 01/28/25 10:58 [email or web address] [id number] 01/28/25 11:03 Document 02/04/25 13:37 [id number] 02/04/25 13:41 01/21/25 01/28/25 02/04/25 13:41 10:58 13:37 Wound Center Nurse 2 #14- R [facility] CALF -Time 13:44 -Correct Patient Yes Yes -Correct Side, Site, Position Yes No -Correct Procedure Yes No -Procedure Performed Yes No -Type of Procedure Debridement -Clinical Debridement Subcutaneous -Tissue Removed Subcutaneous -Post Debridement (cm) - Length 1.5 0 -Post Debridement (cm) - Width 0.5 0 -Post Debridement (cm) - Depth 0.1 0 -Total Square (Post) (cm) 0.75 0 -Area of Debridement (cm) - Length 1.5 0 -Area of Debridement (cm) - Width 0.5 0 -Total Square (Area) (cm) 0.75 0 -Tunneling No -Undermining/Tunneling No -Circular Undermining No -Wound/Ulcer Outcome Not Healed Healed- Epithelialized -Ulcer Cleansing Rinsed/ Irrigated with Saline -Foul Odor after Cleansing No -Bioengineered Tissue No -Bleeding Controlled with Pressure -Treatment Response Procedure Tolerated Well -Offloading No -Debridement - Subq, 1st 20sq cm Yes #13- R LAT CALF -Time 13:45 11:00 13:39 -Correct Patient Yes Yes Yes -Correct Side, Site, Position Yes Yes Yes -Correct Procedure Yes Yes Yes -Procedure Performed Yes Yes Yes -Type of Procedure Debridement Debridement Debridement -Clinical Debridement Subcutaneous Subcutaneous Subcutaneous -Tissue Removed Subcutaneous Subcutaneous Subcutaneous -Post Debridement (cm) - Length 1.9 1.5 2.5 -Post Debridement (cm) - Width 1.0 0.3 2.7 -Post Debridement (cm) - Depth 0.1 0.1 0.1 -Total Square (Post) (cm) 1.90 0.45 6.75 -Area of Debridement (cm) - Length 1.9 1.5 2.5 -Area of Debridement (cm) - Width 1.0 0.3 2.7 -Total Square (Area) (cm) 1.90 0.45 6.75 -Tunneling No No No -Undermining/Tunneling No No No -Circular Undermining No No No -Wound/Ulcer Outcome Not Healed Not Healed Not Healed -Ulcer Cleansing Rinsed/ Rinsed/ Rinsed/ Irrigated with Irrigated with Irrigated with Saline Saline Saline -Foul Odor after Cleansing No No No -Bioengineered Tissue Yes Yes Yes -Type of Bioengineered Tissue Epifix 18mm Epifix Epifix Disc -Expiration Date 09/18/29 08/19/29 08/19/29 -Product Lot Number [id number] -Percent Used 100 100 100 -Lot number of Saline Used [id number] -Bleeding Controlled with Pressure Pressure Pressure -Treatment Response Procedure Procedure Procedure Tolerated Well Tolerated Well Tolerated Well -Offloading No No No -Debridement - Subq, 1st 20sq cm No No No -Apply Skin Sub - 1st 25 sq cm - Legs 1 1 1 -Epifix Application 1-4 (per sq cm) 4 4 -Epifix 18mm Disc Application 1-4 3 Pain Scale: 0-10 Numeric Is Patient Pain Free? Yes Yes Yes - Nurse 3 - General Ulcer D/C NN Start: 01/21/25 13:15 Freq: Status: Active Protocol: Activity Type Activity Date Activity User E-sign Co-sign Detail Recorded Client Recorded Date Recorded By Document 01/21/25 13:59 KW [id number] 01/21/25 14:00 KW Document 01/28/25 11:13 KW [id number] 01/28/25 11:13 KW Document 02/04/25 14:02 DL [id number] 02/04/25 14:03 DL 01/21/25 01/28/25 02/04/25 13:59 11:13 14:02 Wound Care Center Nurse 3 #14- R MEDIAL CALF -Primary Dressing Covered/Secured with Dry Gauze #13- R LAT CALF -Foul Odor after Cleansing No -Other Dressing Epifix -Primary Dressing Covered/Secured with Dry Gauze Dry Gauze Dry Gauze -Other Covering Unna Boot BLE -Multi-Layered Wrap Application Multi-Layer Multi-Layer Unna Boot - Comp - Bilat ($ Comp - Bilat ($ Right ) ) -Unna- Right (Qty applied) 1 -Multi-Layer Compression Bilat (Qty 1 1 applied) Treatment Response Procedure Tolerated Well Pain Scale: 0-10 Numeric Is Patient Pain Free? Yes Yes Yes - Visit Discharge Discharge Condition Stable Stable Stable Ambulatory Status Ambulatory, Ambulatory, Ambulatory, Walker Wheelchair Walker Transportation Private Auto Medication Reconcilliation completed & No No provided to patient/care provider Clinical Summary of Care Provided Yes Yes Facility Type [facility] Care Facility Orders Sent Yes Assessment/Plan Assessment/Plan (1) Non-pressure chronic ulcer of right ankle with fat layer exposed: CODE(S): L97.312 - Non-pressure chronic ulcer of right ankle with fat layer exposed PLAN: Patient was examined and evaluated. All findings were discussed with the patient. All questions were answered to the patient's satisfaction. Excisional debridement down to including subcutaneous tissue of the right lateral posterior ankle with a number 5 mm dermal curette done without incident. Predebridement measurement was sanguinous crust. Postdebridement measurement 2.5 x 2.7 x 0.1 cm. EpiFix 2.0 x 2.0 cm was applied to the right lateral full-thickness ulceration with 100% use. Third application. The graft site was free and clear of any infection. The wound/skin graft substitute was dressed with nonadherent bandage secured in place with Steri-Strips followed by bolster dressing as well as a multilayer compression bandage to the bilateral lower extremity Educated the patient to ask for assistance when moving around her room at her facility which she was understanding of. I also educated the patient that if she has another fall she is to present to the emergency room for evaluation. Follow-up at the wound care center with Dr. Sylvester in 1 week. (2) Other specified peripheral vascular diseases: CODE(S): I73.89 - Other specified peripheral vascular diseases
[2025-02-11 13:30] VITALS: BP 185/61; PULSE 66; RESP 18; TEMP 36.5
--- NOTE | 2025-02-11 14:09 | PN.PCM_ITS ---
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 She has been doing dressing changes. There is improvement to the wound. No drainage sign of infection Progress of Wound: Stable full-thickness wounds to the right posterior ankle. Subjective Subjective Patient is 84-year-old female presenting to clinic today follow-up evaluation of posterior lateral full-thickness wound with amnio skin graft substitute and Unna boot application to the right lower extremity. Patient is left the dressing clean dry and intact. She does admit to some redness to the right great toe after a blister was removed. Patient states that she was not putting any dressing on the right great toe. She denies any drainage. She denies any new onset of trauma. Denies constitutional symptoms. No other pedal complaints at this time. Objective Data Objective Data Vital Signs: Vital Signs Temp Pulse Resp BP O2 Del Method 97.7 F L 66 18 185/61 H Room Air 02/11/25 13:30 02/11/25 13:30 02/11/25 13:30 02/11/25 13:30 01/28/25 10:40 Oxygen Delivery Method Room Air Physical Exam Narrative Vascular: DP and PT pulses are palpable to bilateral extremity. CFT is brisk. Nonpitting edema appreciated to bilateral lower extremity. No erythema to the posterior right leg. Evidence of blanchable erythema appreciated to right hallux. Skin temperature is warm to warm from proximal ankles to distal digit bilateral. Neurological: Light touch intact. Patient does respond to painful stimuli. Dermatological: Evidence of full-thickness wound to the posterior right leg/ankle measuring 3.2 x 2.2 x 0.1 cm. Wound base is granular with no sign of infection evidence of full-thickness wound to the dorsal right hallux measuring 1.0 x 1.5 x 0.1 cm. Wound base is granular. Blanchable erythema appreciated the right hallux. Excisional debridement down to and including subcutaneous tissue with a number 5 mm dermal curette to the full-thickness wound to the dorsal aspect of the right hallux done without incident. Predebridement measurement was 0.9 x 1.3 x 0.1 cm. Postdebridement measurement is 1.0 x 1.5 x 0.1 cm. Excisional debridement down to including subcutaneous tissue of the right lateral posterior ankle with a number 5 mm dermal curette done without incident. Predebridement measurement was sanguinous crust. Postdebridement measurement 3.2 x 2.2 x 0.1 cm. EpiFix 2.0 x 2.0 cm was applied to the right lateral full-thickness ulceration with 100% use. Fourth application. The graft site was free and clear of any infection. The wound/skin graft substitute was dressed with nonadherent bandage secured in place with Steri-Strips followed by bolster dressing as well as a multilayer compression bandage to the bilateral lower extremity Musculoskeletal: No pain on palpation to both full-thickness ulceration. No pain with calf compression. Debridement Note Debridement Note Debridement Free Text: Excisional debridement down to and including subcutaneous tissue with a number 5 mm dermal curette to the full-thickness wound to the dorsal aspect of the right hallux done without incident. Predebridement measurement was 0.9 x 1.3 x 0.1 cm. Postdebridement measurement is 1.0 x 1.5 x 0.1 cm. Excisional debridement down to including subcutaneous tissue of the right lateral posterior ankle with a number 5 mm dermal curette done without incident. Predebridement measurement was sanguinous crust. Postdebridement measurement 3.2 x 2.2 x 0.1 cm. EpiFix 2.0 x 2.0 cm was applied to the right lateral full-thickness ulceration with 100% use. Fourth application. The graft site was free and clear of any infection. The wound/skin graft substitute was dressed with nonadherent bandage secured in place with Steri-Strips followed by bolster dressing as well as a multilayer compression bandage to the bilateral lower extremity Post-Debridement Measurements and Additional Note: Post-Debridement Measurements/Treatment WC - Nurse 1 - General Ulcer Assessment Start: 01/21/25 13:15 Freq: Status: Active Protocol: STACIA Activity Type Activity Date Activity User E-sign Co-sign Detail Recorded Client Recorded Date Recorded By Document 01/21/25 13:19 DL [id number] 01/21/25 13:30 DL Document 01/28/25 10:40 KW [id number] 01/28/25 10:50 KW Document 02/04/25 13:13 DL [id number] 02/04/25 13:23 DL Document 02/11/25 13:30 RB [id number] 02/11/25 13:32 RB 01/21/25 01/28/25 02/04/25 13:19 10:40 13:13 - Today's Visit Information Type of service Follow-up Visit Follow-up Visit Follow-up Visit (Physician/COMPLIANCE TESTING ANALYST (Physician/COMPLIANCE TESTING ANALYST (Physician/COMPLIANCE TESTING ANALYST ) ) ) Arrival Mode Ambulatory, Ambulatory, Ambulatory, Walker Walker Walker Transfer Assistance Manual Manual Transfer Assist (Other) X2 x1 Patient Identification Verified (Name & Yes Yes Yes ) Patient Requires Transmission-Based No No Precautions Vital Signs Temperature (97.8 F-99.1 F) 97.5 F L 97.3 F L 97.9 F Temperature Source Temporal Temporal Temporal Pulse Rate (60-100) 67 77 82 Pulse Location Monitor Monitor Monitor Respiratory Rate (12-18) 16 18 16 Respiratory rate source Observation Observation Oxygen Delivery Method Room Air Blood Pressure (90/60-120/80) 154/72 H 180/79 H 191/86 H Blood Pressure Mean (mm Hg) 99 112 121 Source Monitor Monitor Monitor Position Semi-Fowlers Blood Pressure Location Right Arm History Since Last Visit- (Skip if this is Patient's initial visit) Have you changed medications since your No No No last visit? Any new allergies or adverse reactions No No No Had a fall/change in ADL's that may No No No increase risk of falls Signs or symptoms of abuse and/or No No No neglect since last visit Have you been in the hospital since your Yes No No last visit? Has dressing in place as prescribed Yes Yes Yes Has compression in place as prescribed Yes Yes Yes Has offloadiing in place as prescribed N/A N/A N/A Experienced any changes in pain level or No No No management Left Footwear No Footwear Right Footwear No Footwear Pain Scale: 0-10 Numeric Is Patient Pain Free? Yes Yes Yes 02/11/25 13:30 - Today's Visit Information Type of service Follow-up Visit (Physician/COMPLIANCE TESTING ANALYST ) Arrival Mode Ambulatory, Walker Transfer Assistance None Transfer Assist (Other) Patient Identification Verified (Name & Yes ) Patient Requires Transmission-Based No Precautions Vital Signs Temperature (97.8 F-99.1 F) 97.7 F L Temperature Source Temporal Pulse Rate (60-100) 66 Pulse Location Monitor Respiratory Rate (12-18) 18 Respiratory rate source Observation Oxygen Delivery Method Blood Pressure (90/60-120/80) 185/61 H Blood Pressure Mean (mm Hg) 102 Source Monitor Position Semi-Fowlers Blood Pressure Location Right Arm History Since Last Visit- (Skip if this is Patient's initial visit) Have you changed medications since your No last visit? Any new allergies or adverse reactions No Had a fall/change in ADL's that may No increase risk of falls Signs or symptoms of abuse and/or No neglect since last visit Have you been in the hospital since your No last visit? Has dressing in place as prescribed Yes Has compression in place as prescribed Yes Has offloadiing in place as prescribed N/A Experienced any changes in pain level or No management Left Footwear Slipper Right Footwear Slipper Pain Scale: 0-10 Numeric Is Patient Pain Free? Yes WC - Nurse 1 - General Ulcer Measurement Start: 01/21/25 13:15 Freq: Status: Active Protocol: Activity Type Activity Date Activity User E-sign Co-sign Detail Recorded Client Recorded Date Recorded By Document 01/21/25 13:19 DL [id number] 01/21/25 13:30 DL Document 01/28/25 10:40 KW [id number] 01/28/25 10:50 KW Document 02/04/25 13:13 DL [id number] 02/04/25 13:23 DL Document 02/11/25 13:30 RB [id number] 02/11/25 13:32 RB 01/21/25 01/28/25 02/04/25 13:19 10:40 13:13 Wound Center Nurse 1 #14- R MEDIAL CALF -Current Size (cm) - Length 0.1 0.1 -Current Size (cm) - Width 0.1 0.1 -Current Size (cm) - Depth 0.1 0 -Total Square Cm 0.01 0.01 -Date of Last Picture (Recall this 01/28/25 field) -Exudate Amt Small None Present -Wound Margin Distinct, Outline Attached -Granulation Amt Small (1-33%) None Present (0 %) -Granulation Quality Godfrey -Necrosis Amt Small (1-33%) -Necrotic Tissue Type Adherent Slough -Structure Exposed N/A -Texture (Maryann-wound Skin Appearance) Scarring Assessed -Moisture (Maryann-wound Skin Appearance) Dry/Scaly Assessed,Dry/ Scaly -Color (Maryann-wound Skin Appearance) No Abnormality Assessed -Temperature (Maryann-wound Skin No Abnormality No Abnormality Appearance) (Pt Warm) (Pt Warm) -Tenderness on Palpation (Maryann-wound No Skin Appearance) -Ulcer Cleansing Soap and Water Soap and Water -Foul Odor after Cleansing No No -Anesthetic Used 5% Lidocaine 5% Lidocaine Gel Gel -Wound Comment(s) scabbed #13- R LAT CALF -Combined with other wound -Current Size (cm) - Length 0.1 0.1 0.1 -Current Size (cm) - Width 0.1 0.1 0.1 -Current Size (cm) - Depth 0.1 0 0.1 -Total Square Cm 0.01 0.01 0.01 -Date of Last Picture (Recall this 01/28/25 field) -Photo Taken -Epithelialization -Tunneling -Undermining/Tunneling -Circular Undermining -Exudate Amt None Present None Present None Present -Exudate Type -Wound Margin Distinct, Indistinct, Non Outline -Visible Attached -Granulation Amt None Present (0 Large (67-100%) %) -Granulation Quality Godfrey Pale,Godfrey -Slough/Fibrin -Necrosis Amt Small (1-33%) None Present (0 %) -Necrotic Tissue Type Adherent Slough -Structure Exposed N/A N/A -Texture (Maryann-wound Skin Appearance) Scarring Assessed Scarring -Moisture (Maryann-wound Skin Appearance) No Abnormality Assessed,Dry/ Dry/Scaly Scaly -Color (Maryann-wound Skin Appearance) No Abnormality Assessed Hemosiderin Staining -Temperature (Maryann-wound Skin No Abnormality No Abnormality No Abnormality Appearance) (Pt Warm) (Pt Warm) (Pt Warm) -Tenderness on Palpation (Maryann-wound No No Skin Appearance) -Ulcer Cleansing Soap and Water Soap and Water Soap and Water -Foul Odor after Cleansing No No No -Anesthetic Used 5% Lidocaine 5% Lidocaine 5% Lidocaine Gel Gel Gel -Wound Comment(s) scabbed Lower Limb Edema Present Right Calf (cm) 34.5 38 Right Ankle (cm) 20.8 20.5 Left Calf (cm) 36 Left Ankle (cm) 20.8 02/11/25 13:30 Wound Center Nurse 1 #14- R MEDIAL CALF -Current Size (cm) - Length -Current Size (cm) - Width -Current Size (cm) - Depth -Total Square Cm -Date of Last Picture (Recall this field) -Exudate Amt -Wound Margin -Granulation Amt -Granulation Quality -Necrosis Amt -Necrotic Tissue Type -Structure Exposed -Texture (Maryann-wound Skin Appearance) -Moisture (Maryann-wound Skin Appearance) -Color (Maryann-wound Skin Appearance) -Temperature (Maryann-wound Skin Appearance) -Tenderness on Palpation (Maryann-wound Skin Appearance) -Ulcer Cleansing -Foul Odor after Cleansing -Anesthetic Used -Wound Comment(s) #13- R LAT CALF -Combined with other wound No -Current Size (cm) - Length 3 -Current Size (cm) - Width 2.6 -Current Size (cm) - Depth 0.1 -Total Square Cm 7.8 -Date of Last Picture (Recall this field) -Photo Taken Yes -Epithelialization Medium 34-66% -Tunneling No -Undermining/Tunneling No -Circular Undermining No -Exudate Amt Medium -Exudate Type Serosanguineous -Wound Margin Distinct, Outline Attached -Granulation Amt Large (67-100%) -Granulation Quality Godfrey -Slough/Fibrin Yes -Necrosis Amt Small (1-33%) -Necrotic Tissue Type Adherent Slough -Structure Exposed N/A -Texture (Maryann-wound Skin Appearance) Assessed -Moisture (Maryann-wound Skin Appearance) Assessed,Dry/ Scaly -Color (Maryann-wound Skin Appearance) Hemosiderin Staining -Temperature (Maryann-wound Skin No Abnormality Appearance) (Pt Warm) -Tenderness on Palpation (Maryann-wound No Skin Appearance) -Ulcer Cleansing Wound Cleanser -Foul Odor after Cleansing No -Anesthetic Used 5% Lidocaine Gel -Wound Comment(s) Lower Limb Edema Present Yes Right Calf (cm) 36.6 Right Ankle (cm) 21 Left Calf (cm) 35.6 Left Ankle (cm) 21 WC - Nurse 2 - General Ulcer CM Notes Start: 01/21/25 13:15 Freq: Status: Active Protocol: Activity Type Activity Date Activity User E-sign Co-sign Detail Recorded Client Recorded Date Recorded By Document 01/21/25 13:41 KATELYNN [id number] 01/21/25 13:48 Document 01/28/25 10:58 [email or web address] [id number] 01/28/25 11:03 Document 02/04/25 13:37 [id number] 02/04/25 13:41 Document 02/11/25 13:51 [id number] 02/11/25 13:55 01/21/25 01/28/25 02/04/25 13:41 10:58 13:37 Wound Center Nurse 2 #14- R MEDIAL CALF -Time 13:44 -Correct Patient Yes Yes -Correct Side, Site, Position Yes No -Correct Procedure Yes No -Procedure Performed Yes No -Type of Procedure Debridement -Clinical Debridement Subcutaneous -Tissue Removed Subcutaneous -Post Debridement (cm) - Length 1.5 0 -Post Debridement (cm) - Width 0.5 0 -Post Debridement (cm) - Depth 0.1 0 -Total Square (Post) (cm) 0.75 0 -Area of Debridement (cm) - Length 1.5 0 -Area of Debridement (cm) - Width 0.5 0 -Total Square (Area) (cm) 0.75 0 -Tunneling No -Undermining/Tunneling No -Circular Undermining No -Wound/Ulcer Outcome Not Healed Healed- Epithelialized -Ulcer Cleansing Rinsed/ Irrigated with Saline -Foul Odor after Cleansing No -Bioengineered Tissue No -Bleeding Controlled with Pressure -Treatment Response Procedure Tolerated Well -Offloading No -Debridement - Subq, 1st 20sq cm Yes 15-right hallux -Time -Correct Patient -Correct Side, Site, Position -Correct Procedure -Procedure Performed -Type of Procedure -Clinical Debridement -Tissue Removed -Post Debridement (cm) - Length -Post Debridement (cm) - Width -Post Debridement (cm) - Depth -Total Square (Post) (cm) -Area of Debridement (cm) - Length -Area of Debridement (cm) - Width -Total Square (Area) (cm) -Tunneling -Undermining/Tunneling -Circular Undermining -Wound/Ulcer Outcome -Ulcer Cleansing -Foul Odor after Cleansing -Bioengineered Tissue -Bleeding Controlled with -Treatment Response -Offloading -Debridement - Subq, 1st 20sq cm #13- R LAT CALF -Time 13:45 11:00 13:39 -Correct Patient Yes Yes Yes -Correct Side, Site, Position Yes Yes Yes -Correct Procedure Yes Yes Yes -Procedure Performed Yes Yes Yes -Type of Procedure Debridement Debridement Debridement -Clinical Debridement Subcutaneous Subcutaneous Subcutaneous -Tissue Removed Subcutaneous Subcutaneous Subcutaneous -Post Debridement (cm) - Length 1.9 1.5 2.5 -Post Debridement (cm) - Width 1.0 0.3 2.7 -Post Debridement (cm) - Depth 0.1 0.1 0.1 -Total Square (Post) (cm) 1.90 0.45 6.75 -Area of Debridement (cm) - Length 1.9 1.5 2.5 -Area of Debridement (cm) - Width 1.0 0.3 2.7 -Total Square (Area) (cm) 1.90 0.45 6.75 -Tunneling No No No -Undermining/Tunneling No No No -Circular Undermining No No No -Wound/Ulcer Outcome Not Healed Not Healed Not Healed -Ulcer Cleansing Rinsed/ Rinsed/ Rinsed/ Irrigated with Irrigated with Irrigated with Saline Saline Saline -Foul Odor after Cleansing No No No -Bioengineered Tissue Yes Yes Yes -Type of Bioengineered Tissue Epifix 18mm Epifix Epifix Disc -Expiration Date 09/18/29 08/19/29 08/19/29 -Product Lot Number [id number] -Percent Used 100 100 100 -Lot number of Saline Used [id number] -Bleeding Controlled with Pressure Pressure Pressure -Treatment Response Procedure Procedure Procedure Tolerated Well Tolerated Well Tolerated Well -Offloading No No No -Debridement - Subq, 1st 20sq cm No No No -Apply Skin Sub - 1st 25 sq cm - Legs 1 1 1 -Epifix Application 1-4 (per sq cm) 4 4 -Epifix 18mm Disc Application 1-4 3 Pain Scale: 0-10 Numeric Is Patient Pain Free? Yes Yes Yes 02/11/25 13:51 Wound Center Nurse 2 #14- R MEDIAL CALF -Time -Correct Patient -Correct Side, Site, Position -Correct Procedure -Procedure Performed -Type of Procedure -Clinical Debridement -Tissue Removed -Post Debridement (cm) - Length -Post Debridement (cm) - Width -Post Debridement (cm) - Depth -Total Square (Post) (cm) -Area of Debridement (cm) - Length -Area of Debridement (cm) - Width -Total Square (Area) (cm) -Tunneling -Undermining/Tunneling -Circular Undermining -Wound/Ulcer Outcome -Ulcer Cleansing -Foul Odor after Cleansing -Bioengineered Tissue -Bleeding Controlled with -Treatment Response -Offloading -Debridement - Subq, 20sq cm 15-right hallux -Time 13:54 -Correct Patient Yes -Correct Side, Site, Position Yes -Correct Procedure Yes -Procedure Performed Yes -Type of Procedure Debridement -Clinical Debridement Subcutaneous -Tissue Removed Subcutaneous -Post Debridement (cm) - Length 1 -Post Debridement (cm) - Width 1.5 -Post Debridement (cm) - Depth 0.1 -Total Square (Post) (cm) 1.5 -Area of Debridement (cm) - Length 1 -Area of Debridement (cm) - Width 1.5 -Total Square (Area) (cm) 1.5 -Tunneling No -Undermining/Tunneling No -Circular Undermining No -Wound/Ulcer Outcome Not Healed -Ulcer Cleansing Rinsed/ Irrigated with Saline -Foul Odor after Cleansing No -Bioengineered Tissue No -Bleeding Controlled with Pressure -Treatment Response Procedure Tolerated Well -Offloading No -Debridement - Subq, 20sq cm Yes #13- R LAT CALF -Time 13:52 -Correct Patient Yes -Correct Side, Site, Position Yes -Correct Procedure Yes -Procedure Performed Yes -Type of Procedure Debridement -Clinical Debridement Subcutaneous -Tissue Removed Subcutaneous -Post Debridement (cm) - Length 3.2 -Post Debridement (cm) - Width 2.2 -Post Debridement (cm) - Depth 0.1 -Total Square (Post) (cm) 7.04 -Area of Debridement (cm) - Length 3.2 -Area of Debridement (cm) - Width 2.2 -Total Square (Area) (cm) 7.04 -Tunneling No -Undermining/Tunneling No -Circular Undermining No -Wound/Ulcer Outcome Not Healed -Ulcer Cleansing Rinsed/ Irrigated with Saline -Foul Odor after Cleansing No -Bioengineered Tissue Yes -Type of Bioengineered Tissue Epifix -Expiration Date 08/19/29 -Product Lot Number [id number] -Percent Used 100 -Lot number of Saline Used [id number] -Bleeding Controlled with Pressure -Treatment Response Procedure Tolerated Well -Offloading No -Debridement - Subq, 20sq cm No -Apply Skin Sub - 1st 25 sq cm - Legs 1 -Epifix Application 1-4 (per sq cm) 4 -Epifix 18mm Disc Application 1-4 Pain Scale: 0-10 Numeric Is Patient Pain Free? Yes - Nurse 3 - General Ulcer D/C NN Start: 01/21/25 13:15 Freq: Status: Active Protocol: Activity Type Activity Date Activity User E-sign Co-sign Detail Recorded Client Recorded Date Recorded By Document 01/21/25 13:59 KW [id number] 01/21/25 14:00 KW Document 01/28/25 11:13 KW [id number] 01/28/25 11:13 KW Document 02/04/25 14:02 DL [id number] 02/04/25 14:03 DL Edit Result 02/04/25 14:02 DL (1) 000 02/09/25 07:36 JF (1) BLE - Multi-Layered Wrap Application Unna Boot - Right => Unna Boot - => Bilateral - Unna- Right (Qty applied) 1 => - Unna- Bilat (Qty applied) => 2 01/21/25 01/28/25 02/04/25 13:59 11:13 14:02 Wound Care Center Nurse 3 #14- R MEDIAL CALF -Primary Dressing Covered/Secured with Dry Gauze #13- R LAT CALF -Foul Odor after Cleansing No -Other Dressing Epifix -Primary Dressing Covered/Secured with Dry Gauze Dry Gauze Dry Gauze -Other Covering Unna Boot BLE -Multi-Layered Wrap Application Multi-Layer Multi-Layer Unna Boot - Comp - Bilat ($ Comp - Bilat ($ Bilateral ) ) -Unna- Bilat (Qty applied) 2 -Multi-Layer Compression Bilat (Qty 1 1 applied) Treatment Response Procedure Tolerated Well Pain Scale: 0-10 Numeric Is Patient Pain Free? Yes Yes Yes - Visit Discharge Discharge Condition Stable Stable Stable Ambulatory Status Ambulatory, Ambulatory, Ambulatory, Walker Wheelchair Walker Transportation Private Auto Medication Reconcilliation completed & No No provided to patient/care provider Clinical Summary of Care Provided Yes Yes Facility Type Senior Living Care Facility Orders Sent Yes Assessment/Plan Assessment/Plan (1) Cellulitis of right toe: CODE(S): L03.031 - Cellulitis of right toe PLAN: Patient was examined and evaluated. All findings were discussed with the patient. All questions were answered to the patient's satisfaction. Excisional debridement down to and including subcutaneous tissue with a number 5 mm dermal curette to the full-thickness wound to the dorsal aspect of the right hallux done without incident. Predebridement measurement was 0.9 x 1.3 x 0.1 cm. Postdebridement measurement is 1.0 x 1.5 x 0.1 cm. Excisional debridement down to including subcutaneous tissue of the right lateral posterior ankle with a number 5 mm dermal curette done without incident. Predebridement measurement was sanguinous crust. Postdebridement measurement 3.2 x 2.2 x 0.1 cm. EpiFix 2.0 x 2.0 cm was applied to the right lateral full-thickness ulceration with 100% use. Fourth application. The graft site was free and clear of any infection. The wound/skin graft substitute was dressed with nonadherent bandage secured in place with Steri-Strips followed by bolster dressing as well as a multilayer compression bandage to the bilateral lower extremity The right hallux was dressed with Betadine paint and sterile Band-Aid. The patient will be placed on Augmentin 875 twice daily for 2 weeks for concern for soft tissue infection to the right great toe. (2) Non-pressure chronic ulcer of right ankle with fat layer exposed: CODE(S): L97.312 - Non-pressure chronic ulcer of right ankle with fat layer exposed PLAN: Follow-up at the wound care center with Dr. Sylvester in 1 week. (3) Other specified peripheral vascular diseases: CODE(S): I73.89 - Other specified peripheral vascular diseases
--- NOTE | 2025-02-16 11:39 | WC ---
received VM from Mahnaz at [facility]. regarding they cannot get Betadine d/t being assisted living. Returned call and informed her that Bettadine is an over the counter dressing. that we do not place an order for this. She understood this and will get the Betadine
== END 2025-02-17 23:59 | disposition home or self-care (01) ==
LOC: WC 13:00
PROVIDERS: Referring Provider Physician Assistant; Visit Provider Podiatrist Foot & Ankle Surgery
DX: L97.312 Non-pressure chronic ulcer of right ankle with fat layer exposed (principal); S91.001S Unspecified open wound, right ankle, sequela; W19.XXXS Unspecified fall, sequela; I73.89 Other specified peripheral vascular diseases
CPT/HCPCS: 11042; 15271; 29580; 29581; Q4186

== ENCOUNTER → 2025-03-05 15:50 | Outpatient (REF) | payer MEDICARE, SELFPAY ==
[2025-03-06 09:14] LABS: Mucous, Urine 0 SEEN /hpf (<or=2+); Red Blood Cells-Urine 0 SEEN /hpf (0-5)
[2025-03-06 09:25] LABS: Color, Urine Yellow (Yellow); Glucose, Dipstick Normal (Normal); Ketone-Dipstick Negative (Negative); Leukocyte Esterase-Dipstick 100 /ul (Negative); Nitrite-Dipstick Negative (Negative); Occult Blood-Urine Negative /ul (Negative); Protein-Dipstick Negative (Negative); Specific Gravity, Urine 1.010 (1.002-1.030); Urine Bilirubin Dipstick Negative (Negative)
[2025-03-06 09:58] LABS: Squamous Epithelial Cells - UA 0 SEEN /hpf (5-10)
== END ==
LOC: OLS.BROOKB 15:50
DX: N39.0 Urinary tract infection, site not specified (principal)
CPT/HCPCS: 81001; 87086; 87088

== ENCOUNTER 2025-03-11 08:15 | Outpatient (RCR) | payer MEDICARE, SELFPAY ==
[2025-02-18 08:22] VITALS: BP 169/84; PULSE 59; RESP 14; TEMP 36.6
--- NOTE | 2025-02-18 12:28 | PN.PCM_ITS ---
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 She has been doing dressing changes. There is improvement to the wound. No drainage sign of infection Progress of Wound: Stable healing full-thickness wound to the right posterior leg Subjective Subjective Patient is a 84-year-old female presenting to wound care center today follow-up evaluation full-thickness through the amniotic get skin graft substitute to the right posterior leg. The patient has left the multilayer compression bandages on bilateral clean dry and intact. She has no pain to the right lower extremity. She denies any new onset of trauma. Denies constitutional symptoms. No other pedal complaints at this time. Objective Data Objective Data Vital Signs: Vital Signs Temp Pulse Resp BP 97.8 F 59 L 14 169/84 H 02/18/25 08:22 02/18/25 08:22 02/18/25 08:22 02/18/25 08:22 Physical Exam Narrative Vascular: DP and PT pulses are palpable to bilateral extremity. CFT is brisk. Nonpitting edema appreciated to bilateral lower extremity. No erythema. Skin temperature is warm to warm from proximal ankle to distal digit with no focal increase appreciated. Neurological: Light touch intact. Patient does respond to painful stimuli. Dermatological: Evidence of full-thickness wound to the posterior right leg/ankle measuring 0.5 x 0.5 x 0.1 cm. Wound base is granular with no sign of infection evidence of full-thickness wound to the dorsal right hallux measuring 0.1 x 0.1 x 0.1 cm. No erythema to the right hallux. Excisional debridement down to including subcutaneous tissue of the right lateral posterior ankle with a number 5 mm dermal curette done without incident. Predebridement measurement was sanguinous crust. Postdebridement measurement 0.5 x 0.5 x 0.1 cm. EpiFix 18 mm disc was applied to the right lateral full-thickness ulceration with 100% use. Fifth application. The graft site was free and clear of any infection. The wound/skin graft substitute was dressed with nonadherent bandage secured in place with Steri-Strips followed by bolster dressing as well as a multilayer compression bandage to the bilateral lower extremity Musculoskeletal: No pain on palpation to both full-thickness ulceration. No pa in with calf compression. Debridement Note Debridement Note Debridement Free Text: Excisional debridement down to including subcutaneous tissue of the right lateral posterior ankle with a number 5 mm dermal curette done without incident. Predebridement measurement was sanguinous crust. Postdebridement measurement 0.5 x 0.5 x 0.1 cm. EpiFix 18 mm disc was applied to the right lateral full-thickness ulceration with 100% use. Fifth application. The graft site was free and clear of any infection. The wound/skin graft substitute was dressed with nonadherent bandage secured in place with Steri-Strips followed by bolster dressing as well as a multilayer compression bandage to the bilateral lower extremity Post-Debridement Measurements and Additional Note: Post-Debridement Measurements/Treatment WC - Nurse 1 - General Ulcer Assessment Start: 02/18/25 08:22 Freq: Status: Active Protocol: [email or web address] Activity Type Activity Date Activity User E-sign Co-sign Detail Recorded Client Recorded Date Recorded By Document 02/18/25 08:22 ML [id number] 02/18/25 08:37 ML 02/18/25 08:22 WC - Today's Visit Information Type of service Follow-up Visit (Physician/PRESIDING JUDGE ) Arrival Mode Ambulatory, Wheelchair Patient Identification Verified (Name & Yes ) Patient Requires Transmission-Based No Precautions Vital Signs Temperature (97.8 F-99.1 F) 97.8 F Temperature Source Temporal Pulse Rate (60-100) 59 L Pulse Location Monitor Respiratory Rate (12-18) 14 Respiratory rate source Observation Blood Pressure (90/60-120/80) 169/84 H Blood Pressure Mean (mm Hg) 112 Source Monitor Position Sitting Blood Pressure Location Right Forearm History Since Last Visit- (Skip if this is Patient's initial visit) Have you changed medications since your No last visit? Any new allergies or adverse reactions No Had a fall/change in ADL's that may No increase risk of falls Signs or symptoms of abuse and/or No neglect since last visit Have you been in the hospital since your No last visit? Has dressing in place as prescribed Yes Has compression in place as prescribed Yes Has offloadiing in place as prescribed N/A Experienced any changes in pain level or No management Pain Scale: 0-10 Numeric Is Patient Pain Free? Yes - Nurse 1 - General Ulcer Measurement Start: 02/18/25 08:22 Freq: Status: Active Protocol: Activity Type Activity Date Activity User E-sign Co-sign Detail Recorded Client Recorded Date Recorded By Document 02/18/25 08:22 ML [id number] 02/18/25 08:37 ML 02/18/25 08:22 Wound Center Nurse 1 15-right hallux -Current Size (cm) - Length 0.1 -Current Size (cm) - Width 0.1 -Current Size (cm) - Depth 0.1 -Total Square Cm 0.01 -Exudate Amt Small -Exudate Type Serosanguineous -Granulation Amt None Present (0 %) -Slough/Fibrin No -Necrosis Amt None Present (0 %) -Texture (Maryann-wound Skin Appearance) Assessed -Moisture (Maryann-wound Skin Appearance) Assessed -Color (Maryann-wound Skin Appearance) Assessed -Temperature (Maryann-wound Skin No Abnormality Appearance) (Pt Warm) -Tenderness on Palpation (Maryann-wound No Skin Appearance) -Ulcer Cleansing Soap and Water -Foul Odor after Cleansing No #13- R LAT CALF -Current Size (cm) - Length 1 -Current Size (cm) - Width 1.5 -Current Size (cm) - Depth 0.1 -Total Square Cm 1.5 -Granulation Amt Small (1-33%) -Necrosis Amt Small (1-33%) -Texture (Maryann-wound Skin Appearance) Assessed -Moisture (Maryann-wound Skin Appearance) Assessed -Color (Maryann-wound Skin Appearance) Assessed -Tenderness on Palpation (Maryann-wound No Skin Appearance) -Ulcer Cleansing Soap and Water -Foul Odor after Cleansing No -Anesthetic Used 5% Lidocaine Gel WC - Nurse 2 - General Ulcer CM Notes Start: 02/18/25 08:22 Freq: Status: Active Protocol: Activity Type Activity Date Activity User E-sign Co-sign Detail Recorded Client Recorded Date Recorded By Document 02/18/25 08:47 JF [id number] 02/18/25 08:48 JF 02/18/25 08:47 Wound Center Nurse 2 15-right hallux -Correct Patient Yes -Correct Side, Site, Position No -Correct Procedure No -Procedure Performed No -Post Debridement (cm) - Length 0.1 -Post Debridement (cm) - Width 0.1 -Post Debridement (cm) - Depth 0.1 -Total Square (Post) (cm) 0.01 -Area of Debridement (cm) - Length 0.1 -Area of Debridement (cm) - Width 0.1 -Total Square (Area) (cm) 0.01 -Wound/Ulcer Outcome Not Healed #13- R LAT CALF -Time 08:47 -Correct Patient Yes -Correct Side, Site, Position Yes -Correct Procedure Yes -Procedure Performed Yes -Type of Procedure Debridement -Clinical Debridement Subcutaneous -Tissue Removed Subcutaneous -Post Debridement (cm) - Length 0.5 -Post Debridement (cm) - Width 0.5 -Post Debridement (cm) - Depth 0.1 -Total Square (Post) (cm) 0.25 -Area of Debridement (cm) - Length 0.5 -Area of Debridement (cm) - Width 0.5 -Total Square (Area) (cm) 0.25 -Tunneling No -Undermining/Tunneling No -Circular Undermining No -Wound/Ulcer Outcome Not Healed -Ulcer Cleansing Rinsed/ Irrigated with Saline -Foul Odor after Cleansing No -Bioengineered Tissue Yes -Type of Bioengineered Tissue Epifix 18mm Disc -Expiration Date 09/18/29 -Product Lot Number [id number] -Percent Used 100 -Lot number of Saline Used [id number] -Bleeding Controlled with Pressure -Treatment Response Procedure Tolerated Well -Offloading No -Debridement - Subq, 1st 20sq cm No -Apply Skin Sub - 1st 25 sq cm - Legs 1 -Epifix 18mm Disc Application 1-4 3 Pain Scale: 0-10 Numeric Is Patient Pain Free? Yes Assessment/Plan Assessment/Plan (1) Cellulitis of right toe: CODE(S): L03.031 - Cellulitis of right toe PLAN: Patient was examined and evaluated. All findings were discussed with the patient. All questions were answered to the patient's satisfaction. Excisional debridement down to and including subcutaneous tissue with a number 5 mm dermal curette to the full-thickness wound to the dorsal aspect of the right hallux done without incident. Predebridement measurement was 0.9 x 1.3 x 0.1 cm. Postdebridement measurement is 1.0 x 1.5 x 0.1 cm. Excisional debridement down to including subcutaneous tissue of the right lateral posterior ankle with a number 5 mm dermal curette done without incident. Predebridement measurement was sanguinous crust. Postdebridement measurement 3.2 x 2.2 x 0.1 cm. EpiFix 2.0 x 2.0 cm was applied to the right lateral full-thickness ulceration with 100% use. Fourth application. The graft site was free and clear of any infection. The wound/skin graft substitute was dressed with nonadherent bandage secured in place with Steri-Strips followed by bolster dressing as well as a multilayer compression bandage to the bilateral lower extremity Betadine paint and sterile bandage will be applied to the right hallux. Dressing change orders dispensed with the patient. She will finish antibiotic/Augmentin until gone. Follow-up at the wound care center with Dr. Sylvester in 1 week. (2) Non-pressure chronic ulcer of right ankle with fat layer exposed: CODE(S): L97.312 - Non-pressure chronic ulcer of right ankle with fat layer exposed (3) Other specified peripheral vascular diseases: CODE(S): I73.89 - Other specified peripheral vascular diseases
--- NOTE | 2025-02-19 09:14 | WC ---
PHOTO-RIGHT LAT LEG 02/18/25
[2025-02-25 08:38] VITALS: BP 178/90; PULSE 68; RESP 18; TEMP 36.6
--- NOTE | 2025-02-25 11:31 | PCM.WC.PN ---
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 She has been doing dressing changes. There is improvement to the wound. No drainage sign of infection Progress of Wound: Stable healing full-thickness wound to the right posterior leg Subjective Subjective Patient is 84-year-old female presented clinic today follow-up evaluation of full-thickness wound to the posterior right leg and right great toe. Patient has been compliant with dressing changes and as well as left the multilayer compression bandages clean dry and intact to the bilateral lower extremity. She denies any falls. Denies constitutional symptoms. No other pedal complaints at this time. Objective Data Objective Data Vital Signs: Vital Signs Temp Pulse Resp BP O2 Del Method 98 F 68 18 178/90 H Room Air 02/25/25 08:38 02/25/25 08:38 02/25/25 08:38 02/25/25 08:38 02/25/25 08:38 Oxygen Delivery Method Room Air Physical Exam Narrative Vascular: DP and PT pulses are palpable to bilateral extremity. CFT is brisk. Nonpitting edema appreciated to bilateral lower extremity. No erythema. Skin temperature is warm to warm from proximal ankle to distal digit with no focal increase appreciated. Neurological: Light touch intact. Patient does respond to painful stimuli. Dermatological: Full-thickness wound to the posterior right leg and right great toe now healed. No erythema or concern for infection. Musculoskeletal: No pain on palpation to both full-thickness ulceration. No pain with calf compression. Debridement Note Debridement Note Post-Debridement Measurements and Additional Note: Post-Debridement Measurements/Treatment - Nurse 1 - General Ulcer Assessment Start: 02/18/25 08:22 Freq: Status: Active Protocol: [email or web address] Activity Type Activity Date Activity User E-sign Co-sign Detail Recorded Client Recorded Date Recorded By Document 02/18/25 08:22 ML [id number] 02/18/25 08:37 ML Document 02/25/25 08:38 MT [id number] 02/25/25 08:51 MT 02/18/25 02/25/25 08:22 08:38 - Today's Visit Information Type of service Follow-up Visit Follow-up Visit (Physician/SHIPPING AND RECEIVING WEIGHER (Physician/SHIPPING AND RECEIVING WEIGHER ) ) Arrival Mode Ambulatory, Ambulatory, Wheelchair Walker Accompanied by self Patient Identification Verified (Name & Yes Yes ) Patient Requires Transmission-Based No Precautions Safety Precautions Fall Prevention Vital Signs Temperature (97.8 F-99.1 F) 97.8 F 98 F Temperature Source Temporal Temporal Pulse Rate (60-100) 59 L 68 Pulse Location Monitor Monitor Respiratory Rate (12-18) 14 18 Respiratory rate source Observation Monitor Oxygen Delivery Method Room Air Blood Pressure (90/60-120/80) 169/84 H 178/90 H Blood Pressure Mean (mm Hg) 112 119 Source Monitor Monitor Position Sitting Semi-Fowlers Blood Pressure Location Right Forearm Right Arm History Since Last Visit- (Skip if this is Patient's initial visit) Have you changed medications since your No last visit? Any new allergies or adverse reactions No Had a fall/change in ADL's that may No increase risk of falls Signs or symptoms of abuse and/or No neglect since last visit Have you been in the hospital since your No last visit? Has dressing in place as prescribed Yes Yes Has compression in place as prescribed Yes Yes Has offloadiing in place as prescribed N/A Yes Experienced any changes in pain level or No Yes management Left Footwear Regular Shoe Right Footwear Regular Shoe Pain Scale: 0-10 Numeric Is Patient Pain Free? Yes Yes WC - Nurse 1 - General Ulcer Measurement Start: 02/18/25 08:22 Freq: Status: Active Protocol: Activity Type Activity Date Activity User E-sign Co-sign Detail Recorded Client Recorded Date Recorded By Document 02/18/25 08:22 ML [id number] 02/18/25 08:37 ML Document 02/25/25 08:38 CT [id number] 02/25/25 08:51 CT 02/18/25 02/25/25 08:22 08:38 Wound Center Nurse 1 15-right hallux -Current Size (cm) - Length 0.1 0.1 -Current Size (cm) - Width 0.1 0.1 -Current Size (cm) - Depth 0.1 0.1 -Total Square Cm 0.01 0.01 -Date of Last Picture (Recall this 02/25/25 field) -Photo Taken Yes -Tunneling No -Undermining/Tunneling No -Circular Undermining No -Exudate Amt Small None Present -Exudate Type Serosanguineous -Granulation Amt None Present (0 Small (1-33%) %) -Granulation Quality Pale,[place] -Slough/Fibrin No -Necrosis Amt None Present (0 Large (67-100%) %) -Necrotic Tissue Type Adherent Slough -Texture (Maryann-wound Skin Appearance) Assessed Assessed,Callus -Moisture (Maryann-wound Skin Appearance) Assessed Assessed -Color (Maryann-wound Skin Appearance) Assessed Assessed -Temperature (Maryann-wound Skin No Abnormality No Abnormality Appearance) (Pt Warm) (Pt Warm) -Tenderness on Palpation (Maryann-wound No No Skin Appearance) -Ulcer Cleansing Soap and Water Soap and Water -Foul Odor after Cleansing No -Anesthetic Used 5% Lidocaine Gel #13- R LAT CALF -Current Size (cm) - Length 1 0.1 -Current Size (cm) - Width 1.5 0.1 -Current Size (cm) - Depth 0.1 0.1 -Total Square Cm 1.5 0.01 -Date of Last Picture (Recall this 02/25/25 field) -Photo Taken Yes -Epithelialization Small 1-33% -Tunneling No -Undermining/Tunneling No -Circular Undermining No -Exudate Amt None Present -Wound Margin Flat & Intact -Granulation Amt Small (1-33%) Small (1-33%) -Granulation Quality Pale,[place] -Necrosis Amt Small (1-33%) Large (67-100%) -Necrotic Tissue Type Adherent Slough -Texture (Maryann-wound Skin Appearance) Assessed Assessed -Moisture (Maryann-wound Skin Appearance) Assessed Assessed -Color (Maryann-wound Skin Appearance) Assessed Assessed -Temperature (Maryann-wound Skin No Abnormality Appearance) (Pt Warm) -Tenderness on Palpation (Maryann-wound No No Skin Appearance) -Ulcer Cleansing Soap and Water Soap and Water -Foul Odor after Cleansing No No -Anesthetic Used 5% Lidocaine 5% Lidocaine Gel Gel Right Calf (cm) 35 Right Ankle (cm) 21 Left Calf (cm) 34 Left Ankle (cm) 20.5 WC - Nurse 2 - General Ulcer CM Notes Start: 02/18/25 08:22 Freq: Status: Active Protocol: Activity Type Activity Date Activity User E-sign Co-sign Detail Recorded Client Recorded Date Recorded By Document 02/18/25 08:47 [email or web address] [id number] 02/18/25 08:48 JF Document 02/25/25 08:58 [id number] 02/25/25 08:58 02/18/25 02/25/25 08:47 08:58 Wound Center Nurse 2 15-right hallux -Correct Patient Yes Yes -Correct Side, Site, Position No No -Correct Procedure No No -Procedure Performed No No -Post Debridement (cm) - Length 0.1 0 -Post Debridement (cm) - Width 0.1 0 -Post Debridement (cm) - Depth 0.1 0 -Total Square (Post) (cm) 0.01 0 -Area of Debridement (cm) - Length 0.1 0 -Area of Debridement (cm) - Width 0.1 0 -Total Square (Area) (cm) 0.01 0 -Wound/Ulcer Outcome Not Healed Healed- Epithelialized #13- R LAT CALF -Time 08:47 -Correct Patient Yes Yes -Correct Side, Site, Position Yes No -Correct Procedure Yes No -Procedure Performed Yes No -Type of Procedure Debridement -Clinical Debridement Subcutaneous -Tissue Removed Subcutaneous -Post Debridement (cm) - Length 0.5 0 -Post Debridement (cm) - Width 0.5 0 -Post Debridement (cm) - Depth 0.1 0 -Total Square (Post) (cm) 0.25 0 -Area of Debridement (cm) - Length 0.5 0 -Area of Debridement (cm) - Width 0.5 0 -Total Square (Area) (cm) 0.25 0 -Tunneling No -Undermining/Tunneling No -Circular Undermining No -Wound/Ulcer Outcome Not Healed Healed- Epithelialized -Ulcer Cleansing Rinsed/ Irrigated with Saline -Foul Odor after Cleansing No -Bioengineered Tissue Yes -Type of Bioengineered Tissue Epifix 18mm Disc -Expiration Date 09/18/29 -Product Lot Number [id number] -Percent Used 100 -Lot number of Saline Used [id number] -Bleeding Controlled with Pressure -Treatment Response Procedure Tolerated Well -Offloading No -Debridement - Subq, 1st 20sq cm No -Apply Skin Sub - 1st 25 sq cm - Legs 1 -Epifix 18mm Disc Application 1-4 3 Pain Scale: 0-10 Numeric Is Patient Pain Free? Yes Yes WC - Nurse 3 - General Ulcer D/C NN Start: 02/18/25 08:22 Freq: Status: Active Protocol: Activity Type Activity Date Activity User E-sign Co-sign Detail Recorded Client Recorded Date Recorded By Document 02/25/25 09:15 [id number] 02/25/25 09:15 02/25/25 09:15 Wound Care Center Nurse 3 BLE -Lotion applied to leg before No compression wrap -Multi-Layered Wrap Application Multi-Layer Comp - Bilat ($ ) -Multi-Layer Compression Bilat (Qty 1 applied) Pain Scale: 0-10 Numeric Is Patient Pain Free? Yes WC - Visit Discharge Discharge Condition Stable Ambulatory Status Ambulatory, Walker Transportation Private Auto Assessment/Plan Assessment/Plan (1) Other specified peripheral vascular diseases: CODE(S): I73.89 - Other specified peripheral vascular diseases PLAN: Patient was examined and evaluated. All findings were discussed with the patient. All questions were answered to the patient's satisfaction. After exam the patient's full-thickness wound to the posterior right leg and right hallux are now healed. Educated the patient to watch her surroundings as well as continue to use her walker to prevent falls. The patient will be wrapped in 3M multilayer compression bandage to the bilateral lower extremity and then follow-up in 1 week for nursing visit and then follow-up with myself for fine evaluation and nail debridement on week 2. Follow-up at the wound care center with Dr. Sylvester in 2 week. (2) Non-pressure chronic ulcer of right ankle with fat layer exposed: CODE(S): L97.312 - Non-pressure chronic ulcer of right ankle with fat layer exposed
--- NOTE | 2025-02-26 09:22 | WC ---
PHOTO-RIGHT HALLUX 02/25/25
--- NOTE | 2025-02-26 09:24 | WC ---
PHOTO-RIGHT LATERAL CALF 02/25/25
[2025-03-04 11:01] VITALS: BP 168/86; PULSE 68; RESP 15; TEMP 35.7
--- NOTE | 2025-03-04 11:02 | WC ---
Pt came for nurse visit to have 3M replaced. We were out of the supplies so litzy sanchez, and an lola was applied approved by Abby.
[2025-03-11 08:33] VITALS: BP 168/73; PULSE 63; RESP 16; TEMP 36.4
--- NOTE | 2025-03-11 09:17 | PCM.WC.PN ---
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 She has been doing dressing changes. There is improvement to the wound. No drainage sign of infection Progress of Wound: Stable healing full-thickness wound to the right posterior leg Subjective Subjective Patient is a 84-year-old diabetic female presenting to concern today follow-up evaluation of healed posterior right leg full-thickness wound with application of amniotic skin graft substitute. Patient has been compliant with her multilayer compression bandages and left them clean dry and intact. She is requesting have her nails cut today. Overall she is doing well. She is walking with a walker. She denies any falls or trauma. Denies constitutional symptoms. No other pedal complaints at this time. Objective Data Objective Data Vital Signs: Vital Signs Temp Pulse Resp BP O2 Del Method 97.5 F L 63 16 168/73 H Room Air 03/11/25 08:33 03/11/25 08:33 03/11/25 08:33 03/11/25 08:33 02/25/25 08:38 Oxygen Delivery Method Room Air Physical Exam Narrative Vascular: DP and PT pulses are palpable to bilateral extremity. CFT is brisk. Nonpitting edema appreciated to bilateral lower extremity. Blanchable erythema to the posterior right heel secondary to shoe gear. Skin temperature is warm to warm from proximal ankle to distal digit with no focal increase appreciated. Neurological: Light touch intact. Patient does respond to painful stimuli. Dermatological: Full-thickness wound to the posterior right leg and right great toe now healed. Blanchable erythema to the posterior right heel secondary to shoe wear. Stable with no sign of infection. Toenails x 10 are thickened elongated discolored with evidence of supple debris's. Musculoskeletal: No pain on palpation to both full-thickness ulceration. No pain with calf compression. Debridement Note Debridement Note Post-Debridement Measurements and Additional Note: Post-Debridement Measurements/Treatment NIRU - Nurse 1 - General Ulcer Assessment Start: 02/18/25 08:22 Freq: Status: Active Protocol: [email or web address] Activity Type Activity Date Activity User E-sign Co-sign Detail Recorded Client Recorded Date Recorded By Document 02/18/25 08:22 ML [id number] 02/18/25 08:37 ML Document 02/25/25 08:38 MT [id number] 02/25/25 08:51 MT Document 03/04/25 11:01 ML [id number] 03/04/25 11:03 ML Document 03/11/25 08:33 TS [id number] 03/11/25 08:35 TS 02/18/25 02/25/25 03/04/25 08:22 08:38 11:01 - Today's Visit Information Type of service Follow-up Visit Follow-up Visit Nurse-only (Physician/MENTAL HEALTH COORDINATOR (Physician/MENTAL HEALTH COORDINATOR Visit ) ) Arrival Mode Ambulatory, Ambulatory, Walker Wheelchair Walker Transfer Assistance Accompanied by self Patient Identification Verified (Name & Yes Yes Yes ) Patient Requires Transmission-Based No No Precautions Safety Precautions Fall Prevention Vital Signs Temperature (97.8 F-99.1 F) 97.8 F 98 F 96.2 F L Temperature Source Temporal Temporal Temporal Pulse Rate (60-100) 59 L 68 68 Pulse Location Monitor Monitor Monitor Respiratory Rate (12-18) 14 18 15 Respiratory rate source Observation Monitor Observation Oxygen Delivery Method Room Air Blood Pressure (90/60-120/80) 169/84 H 178/90 H 168/86 H Blood Pressure Mean (mm Hg) 112 119 113 Source Monitor Monitor Monitor Position Sitting Semi-Fowlers Sitting Blood Pressure Location Right Forearm Right Arm Left Arm History Since Last Visit- (Skip if this is Patient's initial visit) Have you changed medications since your No No last visit? Any new allergies or adverse reactions No No Had a fall/change in ADL's that may No No increase risk of falls Signs or symptoms of abuse and/or No No neglect since last visit Have you been in the hospital since your No last visit? Has dressing in place as prescribed Yes Yes Yes Has compression in place as prescribed Yes Yes Yes Has offloadiing in place as prescribed N/A Yes N/A Experienced any changes in pain level or No Yes No management Left Footwear Regular Shoe Right Footwear Regular Shoe Pain Scale: 0-10 Numeric Is Patient Pain Free? Yes Yes Yes 03/11/25 08:33 WC - Today's Visit Information Type of service Follow-up Visit (Physician/MENTAL HEALTH COORDINATOR ) Arrival Mode Ambulatory, Walker Transfer Assistance None Accompanied by Patient Identification Verified (Name & Yes ) Patient Requires Transmission-Based No Precautions Safety Precautions NA Vital Signs Temperature (97.8 F-99.1 F) 97.5 F L Temperature Source Temporal Pulse Rate (60-100) 63 Pulse Location Monitor Respiratory Rate (12-18) 16 Respiratory rate source Observation Oxygen Delivery Method Blood Pressure (90/60-120/80) 168/73 H Blood Pressure Mean (mm Hg) 104 Source Monitor Position Blood Pressure Location History Since Last Visit- (Skip if this is Patient's initial visit) Have you changed medications since your No last visit? Any new allergies or adverse reactions No Had a fall/change in ADL's that may No increase risk of falls Signs or symptoms of abuse and/or No neglect since last visit Have you been in the hospital since your No last visit? Has dressing in place as prescribed Yes Has compression in place as prescribed Yes Has offloadiing in place as prescribed N/A Experienced any changes in pain level or No management Left Footwear Regular Shoe Right Footwear Regular Shoe Pain Scale: 0-10 Numeric Is Patient Pain Free? Yes 03/04/25 11:02 Wound Center by Jesscia Wolff Pt came for nurse visit to have 3M replaced. We were out of the supplies so litzy sanchez, and an lola was applied approved by Abby. Initialized on 03/04/25 11:02 - END OF NOTE WC - Nurse 1 - General Ulcer Measurement Start: 02/18/25 08:22 Freq: Status: Active Protocol: Activity Type Activity Date Activity User E-sign Co-sign Detail Recorded Client Recorded Date Recorded By Document 02/18/25 08:22 ML [id number] 02/18/25 08:37 ML Document 02/25/25 08:38 MT [id number] 02/25/25 08:51 MT Document 03/11/25 08:33 TS [id number] 03/11/25 08:35 TS 02/18/25 02/25/25 03/11/25 08:22 08:38 08:33 Wound Center Nurse 1 15-right hallux -Current Size (cm) - Length 0.1 0.1 -Current Size (cm) - Width 0.1 0.1 -Current Size (cm) - Depth 0.1 0.1 -Total Square Cm 0.01 0.01 -Date of Last Picture (Recall this 02/25/25 field) -Photo Taken Yes -Tunneling No -Undermining/Tunneling No -Circular Undermining No -Exudate Amt Small None Present -Exudate Type Serosanguineous -Granulation Amt None Present (0 Small (1-33%) %) -Granulation Quality Pale,[place] -Slough/Fibrin No -Necrosis Amt None Present (0 Large (67-100%) %) -Necrotic Tissue Type Adherent Slough -Texture (Maryann-wound Skin Appearance) Assessed Assessed,Callus -Moisture (Maryann-wound Skin Appearance) Assessed Assessed -Color (Maryann-wound Skin Appearance) Assessed Assessed -Temperature (Maryann-wound Skin No Abnormality No Abnormality Appearance) (Pt Warm) (Pt Warm) -Tenderness on Palpation (Maryann-wound No No Skin Appearance) -Ulcer Cleansing Soap and Water Soap and Water -Foul Odor after Cleansing No -Anesthetic Used 5% Lidocaine Gel #13- R LAT CALF -Current Size (cm) - Length 1 0.1 -Current Size (cm) - Width 1.5 0.1 -Current Size (cm) - Depth 0.1 0.1 -Total Square Cm 1.5 0.01 -Date of Last Picture (Recall this 02/25/25 field) -Photo Taken Yes -Epithelialization Small 1-33% -Tunneling No -Undermining/Tunneling No -Circular Undermining No -Exudate Amt None Present -Wound Margin Flat & Intact -Granulation Amt Small (1-33%) Small (1-33%) -Granulation Quality Pale,[place] -Necrosis Amt Small (1-33%) Large (67-100%) -Necrotic Tissue Type Adherent Slough -Texture (Maryann-wound Skin Appearance) Assessed Assessed -Moisture (Maryann-wound Skin Appearance) Assessed Assessed -Color (Maryann-wound Skin Appearance) Assessed Assessed -Temperature (Maryann-wound Skin No Abnormality Appearance) (Pt Warm) -Tenderness on Palpation (Maryann-wound No No Skin Appearance) -Ulcer Cleansing Soap and Water Soap and Water -Foul Odor after Cleansing No No -Anesthetic Used 5% Lidocaine 5% Lidocaine Gel Gel Lower Limb Edema Present No Right Calf (cm) 35 Right Ankle (cm) 21 Left Calf (cm) 34 Left Ankle (cm) 20.5 WC - Nurse 2 - General Ulcer CM Notes Start: 02/18/25 08:22 Freq: Status: Active Protocol: Activity Type Activity Date Activity User E-sign Co-sign Detail Recorded Client Recorded Date Recorded By Document 02/18/25 08:47 [id number] 02/18/25 08:48 JF Document 02/25/25 08:58 JF [id number] 02/25/25 08:58 JF Document 03/11/25 08:32 [id number] 03/11/25 08:33 02/18/25 02/25/25 03/11/25 08:47 08:58 08:32 Wound Center Nurse 2 15-right hallux -Correct Patient Yes Yes -Correct Side, Site, Position No No -Correct Procedure No No -Procedure Performed No No -Post Debridement (cm) - Length 0.1 0 -Post Debridement (cm) - Width 0.1 0 -Post Debridement (cm) - Depth 0.1 0 -Total Square (Post) (cm) 0.01 0 -Area of Debridement (cm) - Length 0.1 0 -Area of Debridement (cm) - Width 0.1 0 -Total Square (Area) (cm) 0.01 0 -Wound/Ulcer Outcome Not Healed Healed- Epithelialized #13- R LAT CALF -Time 08:47 -Correct Patient Yes Yes -Correct Side, Site, Position Yes No -Correct Procedure Yes No -Procedure Performed Yes No -Type of Procedure Debridement -Clinical Debridement Subcutaneous -Tissue Removed Subcutaneous -Post Debridement (cm) - Length 0.5 0 -Post Debridement (cm) - Width 0.5 0 -Post Debridement (cm) - Depth 0.1 0 -Total Square (Post) (cm) 0.25 0 -Area of Debridement (cm) - Length 0.5 0 -Area of Debridement (cm) - Width 0.5 0 -Total Square (Area) (cm) 0.25 0 -Tunneling No -Undermining/Tunneling No -Circular Undermining No -Wound/Ulcer Outcome Not Healed Healed- Epithelialized -Ulcer Cleansing Rinsed/ Irrigated with Saline -Foul Odor after Cleansing No -Bioengineered Tissue Yes -Type of Bioengineered Tissue Epifix 18mm Disc -Expiration Date 09/18/29 -Product Lot Number [id number] -Percent Used 100 -Lot number of Saline Used [id number] -Bleeding Controlled with Pressure -Treatment Response Procedure Tolerated Well -Offloading No -Debridement - Subq, 1st 20sq cm No -Apply Skin Sub - 1st 25 sq cm - Legs 1 -Epifix 18mm Disc Application 1-4 3 Pain Scale: 0-10 Numeric Is Patient Pain Free? Yes Yes Yes - Nurse 3 - General Ulcer D/C NN Start: 02/18/25 08:22 Freq: Status: Active Protocol: Activity Type Activity Date Activity User E-sign Co-sign Detail Recorded Client Recorded Date Recorded By Document 02/18/25 09:07 GM wc 02/25/25 13:08 GM Document 02/25/25 09:15 GM [id number] 02/25/25 09:15 GM Document 03/04/25 11:01 ML [id number] 03/04/25 11:03 ML Document 03/11/25 08:52 GM [id number] 03/11/25 08:53 GM 02/18/25 02/25/25 03/04/25 09:07 09:15 11:01 Wound Care Center Nurse 3 BLE -Lotion applied to leg before No compression wrap -Multi-Layered Wrap Application Multi-Layer Multi-Layer Comp - Bilat ($ Comp - Bilat ($ ) ) -Tubular Bandage -Size of Tubigrip Used -Size D ($) -Multi-Layer Compression Bilat (Qty 1 1 applied) Pain Scale: 0-10 Numeric Is Patient Pain Free? Yes Yes Yes WC - Visit Discharge Discharge Condition Stable Stable Ambulatory Status Ambulatory, Ambulatory, Walker Walker Transportation Private Auto Private Auto 03/11/25 08:52 Wound Care Center Nurse 3 BLE -Lotion applied to leg before Yes compression wrap -Multi-Layered Wrap Application -Tubular Bandage Double Layer -Size of Tubigrip Used Size D -Size D ($) 2 -Multi-Layer Compression Bilat (Qty applied) Pain Scale: 0-10 Numeric Is Patient Pain Free? Yes WC - Visit Discharge Discharge Condition Stable Ambulatory Status Ambulatory, Walker Transportation Private Auto 03/04/25 11:02 Wound Center by Jessica Wolff Pt came for nurse visit to have 3M replaced. We were out of the supplies so litzy sanchez, and an lola was applied approved by Abby. Initialized on 03/04/25 11:02 - END OF NOTE Assessment/Plan Assessment/Plan (1) Other specified peripheral vascular diseases: CODE(S): I73.89 - Other specified peripheral vascular diseases PLAN: Patient was examined and evaluated. All findings were discussed with the patient. All questions were answered to the patient's satisfaction. After exam the patient's full-thickness wound is now healed. There is some sensitive area to the posterior right heel that is blanchable with no concern for infection. Educated patient to watch her shoe gear and pressure especially with sitting in a chair for long periods of time which she is understanding of. Triple ointment antibiotic was applied followed by double layer Tubigrip's to bilateral lower extremity. Educated the patient to remove these when going to bed and don them when up and ambulating when at her facility. Patient's toenails x 10 were debrided down to and including healthy normal limits with double-action nail nipper while in clinic today. This was done without incident. Patient has relief after procedure. Educated the patient on importance of checking her feet twice per day and to follow-up in private office in the next 10 weeks. Patient be discharged from the wound care center today. Follow-up as needed. (2) Pain in right toe(s): CODE(S): M79.674 - Pain in right toe(s) (3) Pain in left toe(s): CODE(S): M79.675 - Pain in left toe(s) (4) Tinea unguium: CODE(S): B35.1 - Tinea unguium
--- NOTE | 2025-03-13 09:37 | WC ---
PHOTO-RIGHT LEG 03/11/25
--- NOTE | 2025-03-13 09:40 | WC ---
PHOTO-RIGHT HALLUX 03/11/25
== END 2025-03-20 23:59 | disposition home or self-care (01) ==
LOC: WC 08:15
PROVIDERS: Referring Provider Physician Assistant; Visit Provider Podiatrist Foot & Ankle Surgery
DX: I73.89 Other specified peripheral vascular diseases (principal); L97.312 Non-pressure chronic ulcer of right ankle with fat layer exposed; L03.031 Cellulitis of right toe; M79.674 Pain in right toe(s); M79.675 Pain in left toe(s); B35.1 Tinea unguium
CPT/HCPCS: 15271; 29581; 99213; Q4186; G0463

== ENCOUNTER 2025-04-06 17:04 | Emergency (ER) | payer MEDICARE, SELFPAY ==
[2025-04-06 17:08] VITALS: BP 194/52; PULSE 66; RESP 18; TEMP 36.8; O2SAT 97; BMI 45.8
--- NOTE | 2025-04-06 17:15 | ED.RN ---
pt is poor historian.
--- NOTE | 2025-04-06 17:30 | CT_ITS ---
EXAM: CT BRAIN/HEAD WITHOUT CONTRAST; SPINE CERVICAL WITHOUT CONTRAST CLINICAL HISTORY: FALL, HIT HEAD, ON PLAVIX COMPARISON: 01/18/2025 TECHNIQUE: Noncontrast CT images of the head and cervical spine with multiplanar reconstructions. Dose reduction techniques were used including intermediate exposure control (AEC),iterative reconstruction technique, and/or mA and/or KV dose adjustments based on patient's size. FINDINGS: HEAD: No acute intracranial hemorrhage, extra-axial collection, mass effect or evidence of acute infarct. Mild age-appropriate generalized brain parenchymal volume loss and chronic microangiopathic changes. Orbital contents are unremarkable. Small left parietal scalp contusion. Intact skull base and calvarium. 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 Nonspecific trace dependent fluid in the left maxillary sinus, and opacification of a few dependent left mastoid air cells. CERVICAL SPINE: No acute fracture or subluxation. Trace degenerative grade 1 anterolisthesis of C3 on C4. Positional and/or degenerative straightening of the cervical lordosis. Multilevel spondylotic changes with varying degrees of disc space narrowing, small Schmorl's nodes and/or subchondral cysts, anterior osteophytosis, uncovertebral spurring and hypertrophic facet arthropathy. No prevertebral soft tissue swelling. CT/Spine Cervical without Contras IMPRESSION: No acute intracranial abnormality. Small left parietal scalp contusion. No acute C-spine fracture or subluxation. Degenerative changes as described. Reading Location: [id number]
--- NOTE | 2025-04-06 17:30 | CT_ITS ---
EXAM: CT BRAIN/HEAD WITHOUT CONTRAST; SPINE CERVICAL WITHOUT CONTRAST CLINICAL HISTORY: FALL, HIT HEAD, ON PLAVIX COMPARISON: 01/18/2025 TECHNIQUE: Noncontrast CT images of the head and cervical spine with multiplanar reconstructions. Dose reduction techniques were used including intermediate exposure control (AEC),iterative reconstruction technique, and/or mA and/or KV dose adjustments based on patient's size. FINDINGS: HEAD: No acute intracranial hemorrhage, extra-axial collection, mass effect or evidence of acute infarct. Mild age-appropriate generalized brain parenchymal volume loss and chronic microangiopathic changes. Orbital contents are unremarkable. Small left parietal scalp contusion. Intact skull base and calvarium. 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 Nonspecific trace dependent fluid in the left maxillary sinus, and opacification of a few dependent left mastoid air cells. CERVICAL SPINE: No acute fracture or subluxation. Trace degenerative grade 1 anterolisthesis of C3 on C4. Positional and/or degenerative straightening of the cervical lordosis. Multilevel spondylotic changes with varying degrees of disc space narrowing, small Schmorl's nodes and/or subchondral cysts, anterior osteophytosis, uncovertebral spurring and hypertrophic facet arthropathy. No prevertebral soft tissue swelling. CT/Brain/Head without Contrast IMPRESSION: No acute intracranial abnormality. Small left parietal scalp contusion. No acute C-spine fracture or subluxation. Degenerative changes as described. Reading Location: [id number]
--- NOTE | 2025-04-06 17:35 | ED.VIS.FALL ---
HPI HPI - Fall History of Present Illness Chief Complaint: Fall Narrative Narrative: Patient is a 84-year-old female presenting to the emergency department after a fall. Patient has a past medical history of peripheral vascular disease, bilateral lower extremity edema, glaucoma, CLL, dementia with psychotic disturbance. Patient lives at [facility]. She states that she was getting ready to go to a coloring class when she tripped on something causing her to fall and strike the back of her head. She denies losing consciousness. Reports pain to the back of her head and left knee pain. Denies any other injuries. She was able to walk afterwards. She denies any neck or back pain. Denies any hip pain. She is on Plavix. [facility] Medical History Diabetes Non-smoker Pressure injury of sacral region, stage 1 Pressure ulcer of left buttock, stage 2 Pressure ulcer of right buttock, stage 2 Cognitive communication disorder Muscle weakness Cellulitis and abscess of right leg HTN (hypertension) Glaucoma Dementia with psychotic disturbance Dementia Obesity CLL (chronic lymphocytic leukemia) Home Medications Medication Instructions Recorded Last Taken Type acetaminophen 325 mg tablet 650 mg PO Q6H PRN Pain 09/15/22 Unknown History bisacodyl 10 mg rectal suppository 10 mg AR DAILY PRN Constipation 09/15/22 Unknown History hydroxyzine HCl 25 mg tablet 25 mg PO TID PRN ITCHING/ANXIETY 09/15/22 Unknown History indapamide 2.5 mg tablet 2.5 mg PO DAILY 09/15/22 Unknown History latanoprost 0.005 % eye drops 1 drp EACH EYE DAILY 09/15/22 Unknown History nystatin 100,000 unit/gram topical 1 applic topical BID PRN Rash 09/15/22 Unknown History powder ondansetron 4 mg disintegrating 4 mg PO Q6H PRN Nausea 09/15/22 Unknown History tablet potassium chloride 20 mEq 20 meq PO DAILY 09/15/22 Unknown History tablet,extended release apixaban 5 mg tablet (Eliquis) 5 mg PO BID 04/06/25 Unknown History brimonidine 0.2 % eye drops 1 drp ophthalmic (eye) BID 04/06/25 Unknown History cetirizine 10 mg tablet (All Day 10 mg PO DAILY 04/06/25 Unknown History Allergy (cetirizine)) donepezil 10 mg tablet 10 mg PO DAILY 04/06/25 Unknown History gabapentin 100 mg capsule 300 mg PO Q12H 04/06/25 Unknown History insulin glargine 100 unit/mL (3 5 unit subcut DAILY 04/06/25 Unknown History mL) subcutaneous pen (Lantus Solostar U-100 Insulin) loratadine 10 mg tablet 10 mg PO DAILY 04/06/25 Unknown History (Allerclear) memantine 10 mg tablet 10 mg PO BID 04/06/25 Unknown History menthol 0.44 %-zinc oxide 20.6 % 1 applic topical 4XD 04/06/25 Unknown History topical ointment (CalaSoothe) quetiapine 25 mg tablet (Seroquel) 25 mg PO BID 04/06/25 Unknown History venlafaxine 75 mg tablet 75 mg PO DAILY 04/06/25 Unknown History Allergy/AdvReac Type Severity Reaction Status Date / Time timolol Allergy Other Verified 04/06/25 17:06 Social History Smoking Status: Never smoker ROS ROS ED ROS Narrative see HPI EXAM Physical Exam Narrative Exam Narrative: Vital signs: Reviewed General: Alert and orientedx3. No acute distress HEENT: Head is normocephalic There is a small cephalohematoma and overlying abrasion to the left parietal region. No lacerations. Sinuses nontender, pupils equal round and reactive. EOMI. Nares are patent. No septal hematoma. Oropharynx and throat exams normal. No oropharyngeal trauma. Neck: Supple without lymphadenopathy nontender. No midline cervical spinal tenderness palpation. No step-offs or deformities. Cardiovascular: Regular rate and rhythm, no murmurs. No rubs or gallops. Normal S1 and S2 Respiratory: Clear to auscultation bilaterally. No wheezes, rales, rhonchi Chest: Chest wall is atraumatic and nontender to palpation. No ecchymosis, erythema or crepitus. Abdominal: Soft and nontender. Normal bowel sounds. No guarding or rebound. Nonsurgical abdomen Extremities: Hips are stable and nontender to palpation bilaterally. Normal active range of motion at hips with flexion and extension. No midline thoracic or lumbar spinal tenderness to palpation. No step-offs or deformities. The left knee is mildly tender to palpation with no obvious deformity, erythema or ecchymosis. Extremities are otherwise atraumatic and nontender to palpation with normal active range of motion. Skin: No rash or redness. Neurological: Cranial nerves II through XII are grossly intact. Normal strength and sensation. Normal cerebellar function The rest of the physical exam is unremarkable Const Vital Signs: 04/06/25 17:08 04/06/25 17:15 04/06/25 18:05 Temperature 98.2 F Temperature Source Oral Pulse Rate 66 68 Respiratory Rate 18 16 Respiratory Effort Normal Blood Pressure 194/52 H 145/71 H Blood Pressure Mean 99 95 Pulse Ox 97 Oxygen Delivery Method Room Air Room Air Room Air 04/06/25 19:18 Temperature Temperature Source Pulse Rate 69 Respiratory Rate 18 Respiratory Effort Blood Pressure 145/71 H Blood Pressure Mean 95 Pulse Ox 97 Oxygen Delivery Method Room Air MDM MDM MDM Narrative Medical decision making narrative: Patient is a 84-year-old female presenting to the emergency department after a fall with head trauma. Patient was seen and examined. Vitals are stable. Patient resting in bed comfortably in no acute distress. CT the brain and cervical spine were obtained. Left knee x-ray was obtained. Patient given Tylenol for pain control. CT the brain shows no acute intracranial abnormality. Small left parietal scalp contusion. CT cervical spine with no acute fracture or subluxation. Degenerative changes noted. X-ray reviewed by myself, no fracture seen. Radiology read with no acute fracture and a stable lateral subluxation of the left knee with severe degenerative changes. Patient reevaluated and updated on the negative imaging findings. Given it is a mechanical fall I did not think the patient needed labs or EKG. Patient ambulated with her walker without difficulty, which she uses at baseline. Patient discharged from the Emergency Department. I do not feel that the patient's evaluation reveals any acute reason for admission at this time. I instructed them to either follow-up with their primary care physician or promptly return to the Emergency Department for reevaluation should symptoms worsen or new symptoms develop. I explained what symptoms would indicate the need to return to the emergency department. Shared decision making was used. The patient voiced understanding of the treatment plan and is agreeable with it. Clinical impression: Fall Head trauma Knee contusion History & Record Review Discussion w/independent historian: Patient Lab Data Attestation: I reviewed the patient's lab results. Radiography X-Ray: Read by ED Physician, Normal and No Fracture Diagnostic Testing: Clinical Impression(s) from Imaging Studies Brain CT 04/06/25 17:30 IMPRESSION: No acute intracranial abnormality. Small left parietal scalp contusion. No acute C-spine fracture or subluxation. Degenerative changes as described. Reading Location: [facility] Cervical Spine CT 04/06/25 17:30 IMPRESSION: No acute intracranial abnormality. Small left parietal scalp contusion. No acute C-spine fracture or subluxation. Degenerative changes as described. Reading Location: [facility] Knee X-Ray 04/06/25 17:40 IMPRESSION: No acute fractures. Stable lateral subluxation of the left knee. Severe degenerative changes. Reading Location: [facility] Discharge Plan Triage Chief Complaint: Fall ED Provider: Princess Spears Dx/Rx/DC Orders Clinical Impression: Fall, Head trauma, Contusion of scalp Instructions: ED Scalp Contusion, ED Mechanical Fall, ED Head Injury (Adult) Prescriptions: No Action latanoprost 0.005 % Drops 1 drp EACH EYE DAILY acetaminophen 325 mg Tablet 650 mg PO Q6H PRN (Reason: Pain) indapamide 2.5 mg Tablet 2.5 mg PO DAILY bisacodyl 10 mg Suppository 10 mg AR DAILY PRN (Reason: Constipation) hydroxyzine HCl 25 mg Tablet 25 mg PO TID PRN (Reason: ITCHING/ANXIETY) nystatin 100,000 unit/gram Powder 1 applic TOPICAL BID PRN (Reason: Rash) ondansetron 4 mg Tablet,Disintegrating 4 mg PO Q6H PRN (Reason: Nausea) potassium chloride 20 mEq Tablet Extended Release 20 meq PO DAILY brimonidine 0.2 % drops 1 drp ophthalmic (eye) BID menthol-zinc oxide [CalaSoothe] 0.44-20.6 % ointment 1 applic topical 4XD cetirizine [All Day Allergy (cetirizine)] 10 mg tablet 10 mg PO DAILY donepezil 10 mg tablet 10 mg PO DAILY Eliquis 5 mg tablet 5 mg PO BID gabapentin 100 mg capsule 300 mg PO Q12H insulin glargine [Lantus Solostar U-100 Insulin] 100 unit/mL (3 mL) insulin pen 5 unit subcut DAILY loratadine [Allerclear] 10 mg tablet 10 mg PO DAILY memantine 10 mg tablet 10 mg PO BID quetiapine [Seroquel] 25 mg tablet 25 mg PO BID venlafaxine 75 mg tablet 75 mg PO DAILY Primary Care Provider: Prashanth Caicedo Referrals: Prashanth Caicedo DO [Primary Care Provider, Medical] - As soon as possible Activity Restrictions/Additional Instructions: Your evaluation in the Emergency Department did not reveal any acute reason for admission. However, I want to emphasize that you may be early in the course of a disease process or illness even if it is not present. For this reason you should follow-up within 24 hours for reevaluation with either your primary care physician or if necessary back here in the Emergency Department. You should return to the Emergency Department immediately if your symptoms worsen or new symptoms develop. Print Language: Turkish Disposition Disposition: Home, Self Care Discharge Date/Time: 04/06/25 23:15
--- NOTE | 2025-04-06 17:40 | RAD_ITS ---
PROCEDURE: KNEE 1 OR 2 VIEWS 04/06/2025 REASON FOR EXAM: FALL, PAIN TECHNIQUE: Procedure Code: RADK Modality: DX Procedure: KNEE 1 OR 2 VIEWS Laterality: Left COMPARISON: 01/18/2025 FINDINGS: Bones: No fracture. No suspicious bone lesion. Joints: Stable lateral subluxation of the tibia with respect to the femur at the knee by a proximally 10 mm. Severe degenerate changes with obliteration of the joint space, subchondral sclerosis, and marginal osteophytosis. Effusion: No effusion. Soft tissues: Soft tissues are unremarkable. RAD/Knee 1 or 2 Views IMPRESSION: No acute fractures. Stable lateral subluxation of the left knee. Severe degen erative changes. Reading Location: [facility]
[2025-04-06 18:05] VITALS: BP 145/71; PULSE 68; RESP 16
[2025-04-06 19:18] VITALS: BP 145/71; PULSE 69; RESP 18; O2SAT 97
--- NOTE | 2025-04-06 20:21 | ED.RN ---
attempted to call Sarah to inform of pt's return to facility. no answer at this time. will try again.
--- NOTE | 2025-04-06 20:54 | ED.RN ---
gave report of pt's return to nurse Cristina
--- NOTE | 2025-04-06 22:20 | PCA ---
CALLED [facility] AT 2014. GAVE ETA OF 90 MINUTES. CALLED AT 2214 TO CHECK ON UPDATE AND MILAGROS GAVE ME A NEW ETA OF 46 MINUTES.
== END 2025-04-06 23:15 | disposition home or self-care (01) ==
PROVIDERS: Emergency Provider Student in an Organized Health Care Education/Training Program; Visit Provider Student in an Organized Health Care Education/Training Program
DX: S00.03XA Contusion of scalp, initial encounter (principal); F03.90 Unspecified dementia, unspecified severity, without behavioral disturbance, psychotic disturbance, mood disturbance, and anxiety; Z79.4 Long term (current) use of insulin; E11.9 Type 2 diabetes mellitus without complications; I10 Essential (primary) hypertension; W01.10XA Fall on same level from slipping, tripping and stumbling with subsequent striking against unspecified object, initial encounter; Y92.129 Unspecified place in nursing home as the place of occurrence of the external cause; Z79.899 Other long term (current) drug therapy; S80.00XA Contusion of unspecified knee, initial encounter
CPT/HCPCS: 70450; 72125; 73560; 99284

== ENCOUNTER → 2025-04-09 | Outpatient (REF) | payer MEDICARE, SELFPAY ==
[2025-04-09 10:23] LABS: Hematocrit 40.5 % (37-47); Hemoglobin 13.1 g/dL (12.0-15.0); Immature Granulocytes Count 0.030 X10^3/uL (0.0-0.0); Mean Corp Hgb Conc 32.3 g/dL (32-36); Mean Corpuscular Volume 98.8 fL (81-99); Mean Platelet Vol. 12.1 fl (6.2-12.0); NRBC Flagged by Analyzer 0 % (0-5); POSITIVE DIFFERENTIAL YES; Platelet Count 167 K/mm3 (150-450); RBC Distribution Width CV 13.2 % (11.6-14.6); RBC Distribution Width SD 48.4 fl (35.1-43.9); Red Blood Count 4.10 M/mm3 (4.2-5.4); White Blood Count 17.2 K/mm3 (4.4-11.0)
[2025-04-09 10:45] LABS: Differential Indicated SCAN CRITERIA MET
[2025-04-09 10:50] LABS: AST(SGOT) 20 U/L (<=31); Alanine Aminotransfer ALT/SGPT 10 U/L (<=34); Albumin, Serum 3.7 g/dL (3.4-4.8); Alkaline Phosphatase 69 U/L (35-104); Anion Gap 10 (5-15); BUN 19 mg/dL (4-19); BUN/Creat Ratio 21.3 RATIO (10-20); Calcium,Total 9.2 mg/dL (7.6-11.0); Carbon Dioxide 29.0 mmol/L (21.0-32.0); Chloride 108 mmol/L (98-108); Globulin 2.5 g/dL (2.2-4.2); Glucose 116 mg/dL (70-99); Potassium 4.3 mmol/L (3.3-5.1)
== END ==
LOC: OLS.BROOKB 06:25
DX: Z79.899 Other long term (current) drug therapy (principal); F41.9 Anxiety disorder, unspecified; R41.841 Cognitive communication deficit; F02.B0 Dementia in other diseases classified elsewhere, moderate, without behavioral disturbance, psychotic disturbance, mood disturbance, and anxiety
CPT/HCPCS: 36415; 80053; 85025

== ENCOUNTER → 2025-04-29 15:30 | Outpatient (REF) | payer MEDICARE, SELFPAY ==
[2025-04-30 08:03] LABS: Mucous, Urine 0 SEEN /hpf (<or=2+); Red Blood Cells-Urine 0 SEEN /hpf (0-5)
[2025-04-30 08:35] LABS: Color, Urine Yellow (Yellow); Glucose, Dipstick Normal (Normal); Ketone-Dipstick Negative (Negative); Leukocyte Esterase-Dipstick 100 /ul (Negative); Nitrite-Dipstick Negative (Negative); Occult Blood-Urine 25 /ul (Negative); Protein-Dipstick 30 mg/dl (Negative); Specific Gravity, Urine 1.015 (1.002-1.030); Urine Bilirubin Dipstick Negative (Negative)
[2025-04-30 08:54] LABS: Squamous Epithelial Cells - UA 0-5 SEEN /hpf (5-10)
== END ==
LOC: OLS.BROOKB 15:30
DX: R46.89 Other symptoms and signs involving appearance and behavior (principal); N39.0 Urinary tract infection, site not specified; R31.9 Hematuria, unspecified; R30.0 Dysuria
CPT/HCPCS: 81001; 87077; 87086; 87088; 87186